=== PATIENT | female | born 1940 | race Caucasian/White ===

== ENCOUNTER 2022-10-02 10:54 | Emergency (ER) | payer MEDICARE, OTHER, SELFPAY ==
[2022-10-02 11:04] VITALS: BP 152/81; PULSE 67; RESP 18; TEMP 36.4; O2SAT 99; BMI 31.6
--- NOTE | 2022-10-02 11:48 | CRLHL7_ITS ---
For Patients: As a result of the Century Cures Act, medical imaging exams and procedure reports are released immediately into your electronic medical record. You may view this report before your referring provider. If you have questions, please contact your health care provider. DATE: 10/02/2022. CLINICAL HISTORY: Headache and neck pain. TECHNIQUE: Standard helical CT image acquisition through the head and neck was performed after intravenous contrast bolus enhancement. Multiplanar reconstructed images were performed and interpreted. COMPARISON: None available. FINDINGS: The origins of the great vessels from the aortic arch are patent. The origins of the right and left vertebral arteries are patent. The common carotid arteries are patent. No significant luminal stenoses of the proximal internal carotid arteries by NASCET criteria. The more distal cervical segments of the internal carotid arteries are patent. The cervical segments of the vertebral arteries are patent. No intracranial proximal large vessel occlusion or flow-limiting luminal stenosis. No evidence of cerebral aneurysm or findings to suggest an arteriovenous shunting lesion. IMPRESSION: 1. No intracranial proximal large vessel occlusion or flow-limiting luminal stenosis. 2. Patent cervical arterial vasculature without hemodynamically significant luminal stenosis. Please note that all CT scans at this facility use dose modulation, iterative reconstruction, and/or weight-based dosing when appropriate to reduce radiation dose to as low as reasonably achievable. Dictated by Tk Rivera MD @ 10/02/2022 1:52:06 PM (Electronically Signed)
--- NOTE | 2022-10-02 11:49 | CRLHL7_ITS ---
For Patients: As a result of the Century Cures Act, medical imaging exams and procedure reports are released immediately into your electronic medical record. You may view this report before your referring provider. If you have questions, please contact your health care provider. DATE: 10/02/2022. CLINICAL HISTORY: Headache. TECHNIQUE: Standard helical CT image acquisition of the brain was performed. COMPARISON: None available. FINDINGS: There is no intracranial hemorrhage. No extra-axial collection, mass effect, or midline shift. [place]-white matter differentiation is preserved. Age-appropriate mild generalized parenchymal volume loss. Sub centimeter hypodensity in the inferior left basal ganglia is favored to reflect a prominent perivascular CSF space. The calvarium is unremarkable. Ocular lens replacements. The paranasal sinuses are unremarkable. The mastoid air cells are unremarkable. The soft tissues are unremarkable. IMPRESSION: No CT evidence of acute intracranial abnormality. Please note that all CT scans at this facility use dose modulation, iterative reconstruction, and/or weight-based dosing when appropriate to reduce radiation dose to as low as reasonably achievable. Dictated by Tk Rivera MD @ 10/02/2022 1:48:42 PM (Electronically Signed)
--- NOTE | 2022-10-02 11:54 | ED.GENADULT ---
HPI - General Adult General Date Seen: 10/02/22 Chief complaint: Headache/Migraine Stated complaint: Pain in neck, lt shoulder, head Time Seen by Provider: 10/02/22 11:02 Source: patient History of Present Illness HPI narrative: Patient is an 82-year-old woman who presents for evaluation of headache. She tells me that on night, she had a brief episode of sharp chest pain, lasting a second or two, she says she had 2 sharp chest pains that quickly resolved and have not recurred. She went to bed on night and overnight got up several times to go to the bathroom. She noted onset of headache overnight on which has been worsening since then. She has pain in the left side of her neck, which is largely resolved with rest but hurts with movement. She has a holocranial headache, mild photophobia, a little bit of nausea but no vomiting. She has been taking ibuprofen as well as tizanidine, but neither have been helpful. She has not run any fevers although she has had some chills. She has not had any focal neurologic complaints. She does say that she has been having some flashing lights when she closes her eyes at night. Vision has otherwise been normal. She has a remote history of migraine, but has not had 1 for 20 years. Typically otherwise does not get headaches. She has not had any trauma, even minor trauma. Related Data Home Medications Medication Instructions Recorded Confirmed acetaminophen 500 mg tablet mg PO PRN 06/17/22 aspirin 81 mg capsule 81 mg PO QDAY 06/17/22 glyburide 5 mg tablet mg PO DAILY 06/17/22 hydrochlorothiazide 25 mg tablet mg PO DAILY 06/17/22 meloxicam 7.5 mg tablet mg PO DAILY 06/17/22 rosuvastatin 10 mg tablet mg PO 06/17/22 Allergies Allergy/AdvReac Type Severity Reaction Status Date / Time metformin Allergy Verified 06/20/22 09:08 morphine Allergy Verified 06/20/22 09:08 niacin Allergy Verified 06/20/22 09:08 Sulfa drugs Allergy Uncoded 06/20/22 09:08 Review of Systems Status of ROS: Reports: 10 or more systems reviewed and unremarkable except as noted in History and below [facility] Medical History Arthritis (01/19/10) Diabetes (01/19/10) Hyperlipidemia (01/19/10) Hypertension (01/19/10) Urinary incontinence (01/19/10) Surgical History H/O foot surgery (01/19/10) History of facial surgery (01/19/10) Hx of appendectomy (01/19/10) Hx of cholecystectomy (01/19/10) Previous back surgery (01/19/10) Social History Smoking Status: Never smoker How often do you have a drink containing alcohol: never How often do you have six or more drinks on one occasion: Never AUDIT-C Alcohol total score: 0 Non-prescribed substance use: denies use service: No Exam Narrative: Exam Narrative: Vital signs as noted above. In general, an alert, well-appearing patient. She looks comfortable, breathing easily. Head: Normocephalic, atraumatic. Eyes: Pupils are equal reactive. Extraocular movements are full. Conjunctivae are normal. ENT: Mucous membranes are moist. Throat is normal. Mild tenderness diffusely over the left side of her face, including over the temporal artery but not focally so. Neck: Supple without lymphadenopathy. No bruits. Tenderness throughout the left neck, posterior greater than anterior. No meningeal signs. Rotation is limited to the left secondary to pain. Extension and flexion are preserved. Heart: Regular rate and rhythm. No murmur or rub. Lungs: Clear bilaterally. No increased work of breathing, crackles or wheezes. Abdomen: Soft and nontender. No organomegaly. Extremities: Well perfused. No edema. No calf tenderness. Pulses intact. Neurologic: Patient is alert and oriented to person and place. Speech is fluent. Face is symmetric. Moves all extremities equally. Cerebellar function is intact by finger-nose testing. Affect: Normal. Skin: Warm and dry. Well perfused. Const: Vital Signs, click to edit/add: Vital Signs - 24 hr 10/02/22 11:04 Temperature 97.6 F Pulse Rate [Right Pulse Oximeter] 67 Respiratory Rate 18 Blood Pressure [Ri ght Upper Arm] 152/81 H Pulse Oximetry 99 Oxygen Delivery Me thod Room Air Documenting provider has reviewed patient's vital signs: yes Course Course Hospital Course: Overall, patient's presentation is most suggestive of torticollis with some associated myofascial type headache, but given her age and associated risk factors, other considerations included intracranial hemorrhage, vascular dissection, infection, cavernous sinus thrombosis, temporal arteritis, etc. We established an IV, she had Zofran initially, went on to have CT of the head without contrast as well as CT angiogram of the head and neck. CT of the head by my review did not show any acute findings such as subdural or subarachnoid hemorrhage. Final radiology read was likewise negative. CT angiogram of the head was read by Radiology as negative for acute findings. Labs are notable for a normal white blood cell count of 7.7, hemoglobin of 13. Platelets of 252715. Diff is relatively unremarkable. Her CRP was mildly elevated at 2, sed rate mildly elevated at 31. Metabolic panel normal, LFTs unremarkable. COVID was negative. An EKG by my review showed sinus bradycardia. No acute ST segment changes. In talking with her, it sounds like she has not tolerated stronger pain medications well in the past. Morphine gave her hives, and some kind of other opioid caused her significant confusion. She does tell me that she took 1 of her 's tramadol in the past and feels like that went okay. She does take ibuprofen fairly regularly and says that she does not have any problem with ibuprofen generally, so I did give her a dose of Toradol here after confirming that her head CT was negative. Her workup here is reassuring the negative. She does have muscular tenderness and I suspect that her headache is musculoskeletal in etiology. She may benefit from some outpatient physical therapy, and I have encouraged her to follow up in clinic this week to see how she is doing, if not improving over the next few days that something that could be set up for her. She does have mildly elevated inflammatory markers, not to the degree that time overly suspicious of temporal arteritis, but these may need to be rechecked in if more elevated that something that might need to be followed up on. Return at any time for acute worsening or if new symptoms develop such as fever, focal neurologic signs, vomiting, or other worsening. Vital Signs Vital signs: Initial Vital Signs Temperature 97.6 F 10/02/22 11:04 Temperature Source Temporal Artery Scan 10/02/22 11:04 Pulse Rate 67 10/02/22 11:04 Respiratory Rate 18 10/02/22 11:04 Blood Pressure 152/81 H 10/02/22 11:04 Blood Pressure Mean 104 10/02/22 11:04 Blood Pressure Position Sitting 10/02/22 11:04 Pulse Oximetry 99 10/02/22 11:04 Oxygen Delivery Method 10/02/22 11:04 Vital Signs Temperature 97.6 F 10/02/22 11:04 Pulse Rate 67 10/02/22 11:04 Respiratory Rate 18 10/02/22 11:04 Blood Pressure 152/81 H 10/02/22 11:04 Pulse Oximetry 99 10/02/22 11:04 Oxygen Delivery Method 10/02/22 11:04 Temperature 97.6 F 10/02/22 11:04 Pulse Rate 67 10/02/22 11:04 Respiratory Rate 18 10/02/22 11:04 Blood Pressure 152/81 H 10/02/22 11:04 Pulse Oximetry 99 10/02/22 11:04 Oxygen Delivery Method 10/02/22 11:04 Medical Decision Making Lab Data Labs: Lab Results 10/02/22 10/02/22 10/02/22 Range/Units 11:50 12:05 12:05 WBC 7.70 (4.50-11.00) K/uL RBC 4.33 (4.00-5.20) m/uL Hgb 13.1 (12.0-16.0) gm/dL Hct 38.2 (33.0-51.0) % MCV 88 (80-100) fL MCH 30 (26-34) pg MCHC 34 (32-36) gm/dL RDW Coeff of Will 12.1 (11.5-15.5) % Plt Count 138 L (140-440) K/uL Neut % (Auto) 79.8 H (42.0-72.0) % Lymph % (Auto) 9.5 L (20-44) % [place] % (Auto) 9.1 (0.0-11.0) % Eos % (Auto) 1.0 (0.0-7.0) % Baso % (Auto) 0.3 (0.0-3.0) % Neut # (Auto) 6.10 (1.7-7.0) K/uL Lymph # (Auto) 0.70 L (0.90-2.90) K/uL [place] # (Auto) 0.70 (0.00-0.90) K/UL Eos # (Auto) 0.08 (0.00-0.50) K/uL Baso # (Auto) 0.02 (0.00-0.30) K/uL ESR (2-20) mm/hr INR 1.02 (0.91-1.10) APTT 38 H (23-33) Seconds Sodium (135-149) mmol/L Potassium (3.6-5.1) mmol/L Chloride (96-114) mmol/L Carbon Dioxide (20-32) mmol/L BUN (7-30) mg/dL Creatinine (0.5-1.5) mg/dL Estimated Creat Clear Estimated GFR ml/min Glucose (60-115) mg/dL Calcium (8.4-10.6) mg/dL Total Bilirubin (0.1-1.5) mg/dL Direct Bilirubin (0.0-0.5) mg/dL AST (12-35) U/L ALT (4-35) U/L Alkaline Phosphatase (40-150) U/L C-Reactive Protein (0.5-1.0) mg/dL Total Protein (6.0-8.3) g/dL Albumin (3.3-5.0) g/dL SARS-CoV-2 (PCR) (Negative) POC Troponin I 0.00 L (0.01-0.04) ng/ml 10/02/22 10/02/22 10/02/22 Range/Units 12:05 12:05 12:05 WBC (4.50-11.00) K/uL RBC (4.00-5.20) m/uL Hgb (12.0-16.0) gm/dL Hct (33.0-51.0) % MCV (80-100) fL MCH (26-34) pg MCHC (32-36) gm/dL RDW Coeff of Will (11.5-15.5) % Plt Count (140-440) K/uL Neut % (Auto) (42.0-72.0) % Lymph % (Auto) (20-44) % [place] % (Auto) (0.0-11.0) % Eos % (Auto) (0.0-7.0) % Baso % (Auto) (0.0-3.0) % Neut # (Auto) (1.7-7.0) K/uL Lymph # (Auto) (0.90-2.90) K/uL [place] # (Auto) (0.00-0.90) K/UL Eos # (Auto) (0.00-0.50) K/uL Baso # (Auto) (0.00-0.30) K/uL ESR 31 H (2-20) mm/hr INR (0.91-1.10) APTT (23-33) Seconds Sodium 139 (135-149) mmol/L Potassium 3.6 (3.6-5.1) mmol/L Chloride 101 (96-114) mmol/L Carbon Dioxide 29 (20-32) mmol/L BUN 22 (7-30) mg/dL Creatinine 0.8 (0.5-1.5) mg/dL Estimated Creat Clear 38.36 Estimated GFR 73 ml/min Glucose 112 (60-115) mg/dL Calcium 9.0 (8.4-10.6) mg/dL Total Bilirubin 0.8 (0.1-1.5) mg/dL Direct Bilirubin 0.4 (0.0-0.5) mg/dL AST 24 (12-35) U/L ALT 15 (4-35) U/L Alkaline Phosphatase 76 (40-150) U/L C-Reactive Protein 2.0 H (0.5-1.0) mg/dL Total Protein 6.9 (6.0-8.3) g/dL Albumin 4.2 (3.3-5.0) g/dL SARS-CoV-2 (PCR) Negative SARS-CoV-2 (Negative) POC Troponin I (0.01-0.04) ng/ml Discharge Plan Discharge Clinical Impression: Acute torticollis, Headache Patient Disposition: Home, Self-Care Condition: Improved Instructions: Spasmodic Torticollis (ED), Acute Headache (ED) Additional Instructions: Continue with Tylenol 1000 mg 3 times daily. Tramadol as needed for uncontrolled pain. Be aware that this may cause dizziness, nausea, balance problems etc. Follow-up with your primary clinic this week for recheck. Your sed rate was mildly elevated at 31, CRP was 2.0. Depending on how you are feeling, these may need to be rechecked. If you have any new or worsening symptoms, such as neurologic changes, vomiting, fever, severe pain, return to the emergency department. Prescriptions: No Action rosuvastatin 10 mg tablet PO hydrochlorothiazide 25 mg tablet PO DAILY acetaminophen 500 mg tablet PO PRN Rx Instructions: NO MORE THAN 4000 MG/DAY glyburide 5 mg tablet PO DAILY aspirin 81 mg capsule 81 mg PO QDAY meloxicam 7.5 mg tablet PO DAILY Follow Up/Referrals: Zena Yuan MD [Primary Care Provider] - Stand Alone Forms: Belly [employer]ot Info Instructions
[2022-10-02] MEDS: ONDANSETRON 2 MG/ML inj 4 MG IVP (12:19)
[2022-10-02 12:21] LABS: Basophils Absolute Auto 0.02 K/uL (0.00-0.30); Basophils Percent Auto 0.3 % (0.0-3.0); Eosinophils Absolute Auto 0.08 K/uL (0.00-0.50); Hematocrit 38.2 % (33.0-51.0); Hemoglobin* 13.1 gm/dL (12.0-16.0); Immature Granulocytes Abs Auto 0.02 K/uL (0.00-0.30); Immature Granulocytes Pct Auto 0.3 %; Lymphocytes Percent Auto 9.5 % (20-44); Mean Corpuscular HGB Conc 34 gm/dL (32-36); Mean Corpuscular Hemoglobin 30 pg (26-34); Mean Corpuscular Volume 88 fL (80-100); Monocytes Percent Auto 9.1 % (0.0-11.0); Neutrophils Percent Auto 79.8 % (42.0-72.0); Platelet Count* 138 K/uL (140-440); RDW Coefficient of Variation % 12.1 % (11.5-15.5); Red Blood Count 4.33 m/uL (4.00-5.20)
[2022-10-02 12:22] LABS: Slide Review Reflex No
[2022-10-02 12:37] LABS: Albumin* 4.2 g/dL (3.3-5.0); Chloride* 101 mmol/L (96-114); Sodium* 139 mmol/L (135-149)
[2022-10-02 12:38] LABS: Potassium* 3.6 mmol/L (3.6-5.1)
[2022-10-02 12:39] LABS: INR 1.02 (0.91-1.10); Prothrombin Time 14.1 Seconds
[2022-10-02 12:40] LABS: Carbon Dioxide* 29 mmol/L (20-32); Creatinine* 0.8 mg/dL (0.5-1.5); Est. Creatinine Clearance* 38.36; Estimated Glomerular Filt Rate 73 ml/min
[2022-10-02 12:41] LABS: Alanine Aminotransferase* 15 U/L (4-35); Alkaline Phosphatase* 76 U/L (40-150); Aspartate Amino Transferase* 24 U/L (12-35); Bilirubin Direct* 0.4 mg/dL (0.0-0.5); Bilirubin Total* 0.8 mg/dL (0.1-1.5); Blood Urea Nitrogen* 22 mg/dL (7-30); Glucose* 112 mg/dL (60-115); Partial Thromboplastin Time* 38 Seconds (23-33); Total Protein* 6.9 g/dL (6.0-8.3)
[2022-10-02 12:54] LABS: SARS PCR* Negative SARS-CoV-2 (Negative)
[2022-10-02 13:47] LABS: Erythrocyte SedimentationRate* 31 mm/hr (2-20)
[2022-10-02] MEDS: KETOROLAC 15 MG/ML inj IVP (14:22)
== END 2022-10-02 14:22 | disposition home or self-care (01) ==
PROVIDERS: Emergency Provider Emergency Medicine; PCP Family Medicine
DX: M43.6 Torticollis (principal); R51.9 Headache, unspecified
CPT/HCPCS: 36415; 70450; 70496; 70498; 80048; 80076; 84484; 85025; 85610; 85651; 85730; 86140; 87635; 93005; 96374; 96375; 99284; 99285; J1885; J2405; Q9967

== ENCOUNTER 2023-06-15 07:27 | Day surgery (SDC) | payer MEDICARE, OTHER, SELFPAY ==
[2023-06-09 00:05] VITALS: BP 122/41; PULSE 55; RESP 16; TEMP 36.7; O2SAT 98
[2023-06-15] VITALS (26 sets, daily range): BP systolic 110–150; BP diastolic 47–72; PULSE 48–68; RESP 12–20; TEMP 36.1–36.4; O2SAT 87–100; BMI 31.9
[2023-06-15] MEDS: LACTATED RINGERS 1000 ML 1,000 ML 100 ML IV ×2 (07:35→11:54)
[2023-06-15] MEDS: CELECOXIB 200 MG CAPSULE PO (08:40)
[2023-06-15] MEDS: ACETAMINOPHEN 500 MG TABLET 1000 MG PO ×3 (08:40→21:23)
[2023-06-15] MEDS: OXYCODONE (CR) 10 MG TAB.ER.12H PO (08:40)
[2023-06-15] MEDS: SODIUM CHLORIDE 0.9 % (FLUSH) 10 ML SYRINGE IVF (08:40)
--- NOTE | 2023-06-15 09:10 | SUR.PREOP ---
TIME?OUT:?0910 PT/RN/MDA?VERIFICATION?OF?SURGICAL?SITE,?PROCEDURE,?AND?CONSENT OBTAINED?PRIOR?TO?INVASIVE?PROCEDURE.
[2023-06-15] MEDS: fentaNYL 100 MCG/2 ML inj IVP (09:12)
[2023-06-15] MEDS: MIDAZOLAM HCL 1 MG/ML inj IVP (09:12)
[2023-06-15] MEDS: CEFAZOLIN 2 GM INJ IVP (10:08)
--- NOTE | 2023-06-15 11:32 | CRLHL7_ITS ---
For Patients: As a result of the Cures Act, medical imaging exams and procedure reports are released immediately into your electronic medical record. You may view this report before your referring provider. If you have questions, please contact your health care provider. Indication: POSTOP TKA Technique: Two views right knee Findings/Impression: Hardware from a right total knee arthroplasty is in satisfactory position. Bone alignment is normal. No sign of acute fracture. Postop changes are within normal limits. Dictated by Dustin Perez MD @ 06/15/2023 12:28:36 PM (Electronically Signed)
--- NOTE | 2023-06-15 11:35 | PM.ORPRC ---
Procedure Note Date of procedure: 06/15/23 Procedure: PREOPERATIVE DIAGNOSIS: Right knee osteoarthritis POSTOPERATIVE DIAGNOSIS: Right knee osteoarthritis NAME OF OPERATION: Right total knee arthroplasty SURGEON: Dano Torres MD IT SENIOR SOFTWARE ENGINEER JAVA: WILLIAM Soto ANESTHESIA: Spinal ESTIMATED BLOOD LOSS: 0 mL COMPLICATIONS: None SPECIMENS: None DRAINS: None PREOPERATIVE ANTIBIOTICS: Ancef 2 grams, antibiotic impregnated cement IMPLANTS: 1. J&J Attune # 5 narrow posterior stabilized femur 2. #4 fixed-bearing tibia 3. # 5 posterior stabilized, 5 mm fixed-bearing polyethylene 4. 35 patella INDICATIONS: The patient is a 83-year-old with a longstanding history of severe, unrelenting right knee pain secondary to end-stage (grade IV) right knee osteoarthritis. Despite appropriate nonoperative management, including activity modification, anti-inflammatories, [id number] pain medication, bracing, physical therapy, and injections they continue to have pain and disability. Operative intervention was offered. The risks, benefits and expected outcomes were discussed in detail. These included but were not limited to: Infection, bleeding, injury to blood vessel or nerve, venous thromboembolism. All questions were answered to their satisfaction. Use of an apartment assistant manager was necessary throughout the case for patient positioning and safety, soft tissue retraction, and closure. PROCEDURE: Spinal anesthesia was administered. The patient was placed supine on the operating table. The apartment assistant manager made sure the patient was positioned appropriately. The lower extremity was prepped and draped in the usual sterile fashion. The limb was exsanguinated with the Fl[place] bandage. The pneumatic tourniquet was inflated to 300 mmHg. A standard anterior incision was made with the knee in flexion. Subcutaneous dissection was sharply taken through fascial layer #1. Full-thickness medial and lateral flaps were elevated. The apartment assistant manager retracted the soft tissues and protected them throughout the case. A standard medial parapatellar approach was made. The patella was everted. The infrapatellar fat pad was preserved. The menisci and cruciate ligaments were sharply d?brided. Marginal osteophytes were d?brided with the rongeur. The drill was used to penetrate the femoral canal. The canal was aspirated and irrigated with pulse lavage. The intramedullary femoral guide was placed for a 5-degree valgus cut, removing 10 mm off the distal femur. The saw was used to make the cut. Whitesides line and the trans epicondylar axis were marked. The femoral sizing guide was pinned onto the distal femur. Three degrees of external rotation nicely parallels the transepicondylar axis. Pins were placed for posterior referencing. The four-in-one cutting guide was pinned onto the distal femur. The anterior, posterior, and chamfer cuts were made. The apartment assistant manager protected the collateral ligaments. The box cutting guide was pinned. The box cuts were made. The boxed trial was placed and was an excellent fit. Drill holes for the lugs were made. Attention was then turned to the proximal tibia. The extramedullary tibial guide was placed for a neutral varus/valgus cut with 5 degrees of posterior slope, removing 2 mm based off the medial tibial surface. The apartment assistant manager protected the collateral ligaments and the neurovascular bundle. The saw was used to make the cut. Trial components were placed. The knee was nicely balanced in both flexion and extension. The trial components were removed. The tray was placed in appropriate rotation, parallel to our tibial cutting pins. It was pinned by the apartment assistant manager and the drill and the punch were used. The tray was removed. The punch was used again. We placed a bone plug in the femoral canal. Attention was then turned to the patella. [place] patellar thickness was 19.5 mm. The lobster claw resection guide was used with the 7.5 mm patria. The saw blade was use as an extra patria. The saw was used to make the cut. Drill holes were made by the apartment assistant manager. The trial was placed and was an excellent fit. Cancellous surfaces were irrigated with pulse lavage and thoroughly dried by the apartment assistant manager. We cemented the tibial component, then the femoral component. We impacted the 5 mm polyethylene onto the tibial tray. The knee was brought into full extension. We then cemented the patellar component. Excessive cement was removed. The cement was allowed to harden. The knee was taken through a range of motion and was found to be nicely balanced in both flexion and extension. The patella tracks centrally. The apartment assistant manager did a three minute dilute Betadine solution soak. The apartment assistant manager irrigated the wound with 3 liters of normal saline via pulse lavage. The apartment assistant manager reapproximated the extensor mechanism with #1 Vicryl in an interrupted [id number] fashion. The apartment assistant manager then ran the extensor mechanism with a #1 PDO Stratafix. The apartment assistant manager closed the subcutaneous tissues with a 3-0 Stratafix and the skin with a running 3-0 Stratafix in a subcuticular fashion. Glue was used to seal the skin. The apartment assistant manager placed a dry dressing, MALA stocking, and Polar Care. Sponge and needle counts were correct x2. The patient tolerated the procedure well. There were no apparent complications. They were carefully transferred to the hospital bed and taken to the postanesthesia care unit in satisfactory condition. PLAN: The patient will be mobilized with physical therapy. Aspirin will be used for DVT prophylaxis. They will be discharged to home once medically appropriate.
--- NOTE | 2023-06-15 11:54 | W.ANESCHARGE ---
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
--- NOTE | 2023-06-15 12:02 | P.ANES_ITS ---
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
[2023-06-15] MEDS: LACTATED RINGERS 1000 ML 1,000 ML 75 ML IV (14:25)
[2023-06-15] MEDS: OXYCODONE 5 MG TABLET PO ×3 (14:32→21:23)
--- NOTE | 2023-06-15 14:47 | PC.NURSE ---
End of shift Note: Patient here had a (R) TKA. vitals have been stable, did try clear liquids and tolerated them. PT did get patient up to the chair and then she complained of pain 02/25 which she received oxycodone see NOV. Will continue to monitor until report given to next shift.
--- NOTE | 2023-06-15 15:37 | PM.IMCN1 ---
Date of Consult Consult date: 06/15/23 Requesting Physician: Orthopedics (Harvey Torres) Primary Care Provider: Zena Yuan MD Consult Narrative Reason for consult: Medical management Narrative: Dipika Franco is a 83 year old female past medical history significant for diabetes mellitus type 2, hypertension, hyperlipidemia is POD#0 s/p right total knee arthroplasty with Dr. Torres. Patient reports her pain is managed if she is still. Pain is otherwise responsive to oral medications. Denies headache or dizziness. Denies chest pain or shortness of breath. Tolerating orals without nausea vomiting. Patient plans to return home with the assistance of her niece. There have been no perioperative complications or nursing concerns reported. Estimated total blood loss documented as 0ml. Updated and reviewed the active medical problems, past medical history, past surgical history, social history, allergies and medications in our electronic EMR. Review of Systems Narrative: REVIEW OF SYSTEMS: Complete review of systems performed and negative unless otherwise stated in HPI or below. [facility] Medical History (Updated 06/15/23 @ 15:52 by Fariba Raza PA-C) Vitamin D deficiency (01/19/10) ?E55.9 - Vitamin D deficiency, unspecified (ICD-10) Parotitis (06/02/11) ?K11.20 - Sialoadenitis, unspecified (ICD-10) Adenoma of left adrenal gland (01/19/10) ?D35.02 - Benign neoplasm of left adrenal gland (ICD-10) Diverticulosis (01/19/10) ?K57.90 - Diverticulosis of intestine, part unspecified, without perforation or abscess without bleeding (ICD-10) Cystocele (01/19/10) Hypertension (01/19/10) ?I10 - Essential (primary) hypertension (ICD-10) Hyperlipidemia (01/19/10) ?E78.5 - Hyperlipidemia, unspecified (ICD-10) Diabetes (01/19/10) ?E11.9 - Type 2 diabetes mellitus without complications (ICD-10) Urinary incontinence (01/19/10) ?R32 - Unspecified urinary incontinence (ICD-10) Arthritis (01/19/10) ?M19.90 - Unspecified osteoarthritis, unspecified site (ICD-10) Surgical History H/O oophorectomy (01/19/10) History of hysterectomy (01/19/10) ?Z90.710 - Acquired absence of both cervix and uterus (ICD-10) H/O foot surgery (01/19/10) ?Z98.890 - Other specified postprocedural states (ICD-10) Previous back surgery (01/19/10) ?Z98.890 - Other specified postprocedural states (ICD-10) History of facial surgery (01/19/10) ?Z98.890 - Other specified postprocedural states (ICD-10) Hx of cholecystectomy (01/19/10) ?Z90.49 - Acquired absence of other specified parts of digestive tract (ICD-10) Hx of appendectomy (01/19/10) ?Z90.49 - Acquired absence of other specified parts of digestive tract (ICD-10) Social History What is your current living situation?: I presently have a place to live In the past 12 months, utilities in danger of being shut off: no In past 12 months, lack of transportation kept you from medical appts, meetings, work, or getting things needed for daily living: no In the past 12 mos, have been you worried that your food would run out before you had money to buy more?: never true In the past 12 mos, the food you bought just didn't last and you didn't have money to buy more?: never true Smoking Status: Never smoker How often do you have a drink containing alcohol: never How often do you have six or more drinks on one occasion: Never AUDIT-C Alcohol total score: 0 Non-prescribed substance use: denies use Caffeine: No How often does anyone, including family, friends and others, physically hurt you: never How often does anyone, including family, friends and others, insult or talk down to you: never How often does anyone, including family, friends and others, threaten you with harm: never How often does anyone, including family, friends and others, scream or curse at you: never service: No Meds Home Medications and Allergies Home Medications Medication Instructions Recorded Confirmed Type hydrochlorothiazide 25 mg tablet 25 mg PO DAILY 06/17/22 06/15/23 History rosuvastatin 10 mg tablet 10 mg PO HS 06/17/22 06/15/23 History glyburide 2.5 mg tablet 2.5 mg PO BID 06/15/23 06/15/23 History meloxicam 15 mg tablet 15 mg PO DAILY 06/15/23 06/15/23 History Allergies Allergy/AdvReac Type Severity Reaction Status Date / Time metformin Allergy Verified 05/31/23 09:53 morphine Allergy Verified 05/31/23 09:53 niacin Allergy Verified 05/31/23 09:53 Sulfa (Sulfonamide Allergy Verified 05/31/23 09:53 Antibiotics) Exam Narrative: Exam Narrative: PHYSICAL EXAM General: Sitting up in chair, very pleasant, conversant, NAD HEENT: Normocephalic, atraumatic, sclera white, EOMI, oral mucosa moist Cardiovascular: RRR, S1S2. No pitting edema Pulmonary: CTA bilaterally without rhonchi, rales, expiratory wheezes. No dyspnea Abdominal: Soft, nondistended, NTTP Neurological: Alert, answering questions appropriately, cranial nerves intact, no focal findings Extremities: No gross joint deformity or swelling. Postoperative dressings in place, dry. Neurovascularly intact Skin: Warm, dry. Const: Vital Signs, click to edit/add: Vital Signs - 24 hr 06/15/23 08:44 06/15/23 09:05 06/15/23 09:10 Temperature Pulse Rate 64 61 63 Pulse Rate [Right Pulse Oximeter] Respiratory Rate 16 16 14 Blood Pressure 139/59 L 148/62 H 136/63 Blood Pressure [Le ft Arm] Pulse Oximetry 95 100 100 Oxygen Delivery Me thod Room Air Nasal Cannula Nasal Cannula Oxygen Flow Rate 3 3 06/15/23 09:15 06/15/23 09:20 06/15/23 09:25 Temperature Pulse Rate 64 53 L 48 L Pulse Rate [Right Pulse Oximeter] Respiratory Rate 14 14 14 Blood Pressure 138/58 L 133/52 L 113/49 L Blood Pressure [Le ft Arm] Pulse Oximetry 100 98 100 Oxygen Delivery Me thod Nasal Cannula Nasal Cannula Nasal Cannula Oxygen Flow Rate 3 3 3 06/15/23 09:30 06/15/23 11:54 06/15/23 12:00 Temperature 97.4 F L Pulse Rate 49 L 59 L 58 L Pulse Rate [Right Pulse Oximeter] Respiratory Rate 14 16 16 Blood Pressure 110/50 L 116/48 L 118/51 L Blood Pressure [Le ft Arm] Pulse Oximetry 95 97 96 Oxygen Delivery Me thod Nasal Cannula OxyMask Room Air Oxygen Flow Rate 3 6 06/15/23 12:05 06/15/23 12:10 06/15/23 12:15 Temperature Pulse Rate 57 L 60 54 L Pulse Rate [Right Pulse Oximeter] Respiratory Rate 14 16 14 Blood Pressure 115/56 L 119/53 L 129/59 L Blood Pressure [Le ft Arm] Pulse Oximetry 97 94 93 Oxygen Delivery Me thod Oxygen Flow Rate 06/15/23 12:20 06/15/23 12:24 06/15/23 12:55 Temperature 97.5 F L 96.9 F L Pulse Rate 56 L 55 L 53 L Pulse Rate [Right Pulse Oximeter] Respiratory Rate 13 12 18 Blood Pressure 127/49 L 124/47 L Blood Pressure [Le ft Arm] 123/55 L Pulse Oximetry 95 95 Oxygen Delivery Me thod Room Air Oxygen Flow Rate 06/15/23 13:00 06/15/23 13:15 06/15/23 13:30 Temperature 96.9 F L 96.9 F L 96.9 F L Pulse Rate Pulse Rate [Right Pulse Oximeter] 50 L 56 L 54 L Respiratory Rate 18 18 20 Blood Pressure Blood Pressure [Le ft Arm] 130/60 139/72 130/57 L Pulse Oximetry 95 89 96 Oxygen Delivery Me thod Room Air Room Air Nasal Cannula Oxygen Flow Rate 1 06/15/23 13:45 06/15/23 14:00 Temperature 96.9 F L 96.9 F L Pulse Rate Pulse Rate [Right Pulse Oximeter] 56 L 59 L Respiratory Rate 20 20 Blood Pressure Blood Pressure [Le ft Arm] 130/59 L 138/59 L Pulse Oximetry 97 95 Oxygen Delivery Me thod Nasal Cannula Room Air Oxygen Flow Rate 1 Assessment and Plan Assessment and plan (1) Osteoarthritis of right knee: Problem comment: -POD#0 s/p right TKA. -Perioperative management including pain control, anticoagulation, therapy per Orthopedic Surgery. Status: Acute (2) Diabetes: Problem comment: -encourage diabetic diet -glucose POC with meals -hold glyburide, resume upon discharge Status: Acute (3) Hyperlipidemia: Problem comment: -resume statin upon discharge Status: Acute (4) Hypertension: Problem comment: -stable postoperatively -hold hydrochlorothiazide tonight, resume upon discharge Status: Acute [facility] medicine team will sign off. Please contact our service with any questions or concerns.
[2023-06-15] MEDS: CEFAZOLIN 2 GM in 0.9 % SODIUM CHLORIDE Mini-bag 100 ML IVPB (15:52)
[2023-06-15] MEDS: 0.9 % SODIUM CHLORIDE 500 ML IV (19:03)
--- NOTE | 2023-06-15 19:17 | PC.NURSE ---
End of shift-- Pleasant and cooperative, alert and oriented patient. VSS and pt is afebrile. SPO2 maintained >90% on RA while awake, however, pt's O2 level was noted to be as low as 84% on RA while sleeping. SILVESTRE Link was notified. Pain appears well managed with scheduled Tylenol and 10mg Oxycodone q4h. Dressing to right knee is C/D/I and CMS WNL. Right leg is notably edematous. Cryocuff in place. LS CTA. BS+ x4, pt denied nausea and ate 50% of a regular dinner without difficulty. BS 374 at dinner. MD was notified and SS insulin was ordered. Pt voided only 100ml this shift and was given PRN bolus of NS. She was up to the chair and BR with assist of 1, belt and walker and tolerated it fair. Report to CHRISTEN Myles.
[2023-06-15] MEDS: ASPIRIN 81 MG TABLET EC PO (20:39)
[2023-06-15] MEDS: SENNOSIDES 1 TAB TABLET 2 TAB PO (20:39)
[2023-06-16 00:45] VITALS: O2SAT 98
[2023-06-16] MEDS: OXYCODONE 5 MG TABLET PO ×3 (01:13→09:35)
[2023-06-16] MEDS: CEFAZOLIN 2 GM in 0.9 % SODIUM CHLORIDE Mini-bag 100 ML IVPB (01:14)
[2023-06-16] MEDS: ACETAMINOPHEN 500 MG TABLET 1000 MG PO ×2 (04:13→09:30)
[2023-06-16 04:45] VITALS: BP 109/42; PULSE 53; RESP 16; TEMP 36.6; O2SAT 93
[2023-06-16 06:56] LABS: Basophils Absolute Auto 0.01 K/uL (0.00-0.30); Basophils Percent Auto 0.1 % (0.0-3.0); Hemoglobin* 10.5 gm/dL (12.0-16.0); Lymphocytes Percent Auto 11.6 % (20-44); Mean Corpuscular HGB Conc 34 gm/dL (32-36); Mean Corpuscular Hemoglobin 30 pg (26-34); Mean Corpuscular Volume 89 fL (80-100); Monocytes Percent Auto 5.2 % (0.0-11.0); Neutrophils Percent Auto 82.1 % (42.0-72.0); Platelet Count* 132 K/uL (140-440); RDW Coefficient of Variation % 12.5 % (11.5-15.5); White Blood Count* 10.52 K/uL (4.50-11.00)
[2023-06-16 07:00] VITALS: PULSE 60; RESP 16; O2SAT 98
[2023-06-16 07:00] LABS: Slide Review Reflex No
[2023-06-16 07:07] LABS: INR 1.13 (0.91-1.10); Prothrombin Time 15.2 Seconds
[2023-06-16 07:18] LABS: Potassium* 4.5 mmol/L (3.6-5.1); Sodium* 136 mmol/L (135-149)
[2023-06-16 07:21] LABS: Blood Urea Nitrogen* 24 mg/dL (7-30); Est. Creatinine Clearance* 37.68; Estimated Glomerular Filt Rate 56 ml/min
--- NOTE | 2023-06-16 07:52 | PC.NURSE ---
Pt alert and oriented x3. Afebrile. Pt reports 5/10 pain in right knee, pain managed with PRN medications. Right knee dressing is CDI. Pt is up SBA with walker and gait belt. Tolerating a regular diet and voiding. Pt slept intermittently throughout night.
[2023-06-16 08:00] VITALS: BP 130/62; PULSE 60; RESP 16; TEMP 36.1; O2SAT 98
[2023-06-16] MEDS: ASPIRIN 81 MG TABLET EC PO (09:29)
[2023-06-16] MEDS: SENNOSIDES 1 TAB TABLET 2 TAB PO (09:30)
--- NOTE | 2023-06-16 11:32 | PM.ORPN ---
Subjective Subjective Time Seen by Provider: 07:50 Date Seen: 06/16/23 Principal diagnosis: Status post right knee replacement Interval history: Dipika is comfortable this morning in her recliner. She denies nausea and vomiting. She will discharged today to home. Her niece will be helping her. Ortho Exam Narrative Exam Narrative: Alert and oriented x3. Patient is in no acute distress. Converses without labored breathing. Hearing is grossly intact. Ambulates with a walker. Examination of the right lower extremity shows the dressing is intact. Minimal soft tissue edema. Minimal effusion. Cryocuff is applied to the knee. Lux stockings are in place. CMS is intact right lower extremity. Quad strength 4/5. Bilateral calf soft and nontender. Const Vital Signs, click to edit/add: Vital Signs - 24 hr 06/15/23 11:54 06/15/23 12:00 06/15/23 12:05 Temperature 97.4 F L Pulse Rate 59 L 58 L 57 L Pulse Rate [Right Pulse Oximeter] Respiratory Rate 16 16 14 Blood Pressure 116/48 L 118/51 L 115/56 L Blood Pressure [Left Arm] Pulse Oximetry 97 96 97 Oxygen Delivery Method OxyMask Room Air Oxygen Flow Rate 6 06/15/23 12:10 06/15/23 12:15 06/15/23 12:20 Temperature Pulse Rate 60 54 L 56 L Pulse Rate [Right Pulse Oximeter] Respiratory Rate 16 14 13 Blood Pressure 119/53 L 129/59 L 127/49 L Blood Pressure [Left Arm] Pulse Oximetry 94 93 95 Oxygen Delivery Method Oxygen Flow Rate 06/15/23 12:24 06/15/23 12:55 06/15/23 13:00 Temperature 97.5 F L 96.9 F L 96.9 F L Pulse Rate 55 L 53 L Pulse Rate [Right Pulse Oximeter] 50 L Respiratory Rate 12 18 18 Blood Pressure 124/47 L Blood Pressure [Left Arm] 123/55 L 130/60 Pulse Oximetry 95 95 Oxygen Delivery Method Room Air Room Air Oxygen Flow Rate 06/15/23 13:15 06/15/23 13:30 06/15/23 13:45 Temperature 96.9 F L 96.9 F L 96.9 F L Pulse Rate Pulse Rate [Right Pulse Oximeter] 56 L 54 L 56 L Respiratory Rate 18 20 20 Blood Pressure Blood Pressure [Left Arm] 139/72 130/57 L 130/59 L Pulse Oximetry 89 96 97 Oxygen Delivery Method Room Air Nasal Cannula Nasal Cannula Oxygen Flow Rate 1 1 06/15/23 14:00 06/15/23 15:00 06/15/23 15:00 Temperature 96.9 F L Pulse Rate Pulse Rate [Right Pulse Oximeter] 59 L 68 Respiratory Rate 20 18 Blood Pressure Blood Pressure [Left Arm] 138/59 L Pulse Oximetry 95 98 Oxygen Delivery Method Room Air Oxygen Flow Rate 06/15/23 15:00 06/15/23 16:00 06/15/23 17:00 Temperature 97.4 F L 96.9 F L Pulse Rate Pulse Rate [Right Pulse Oximeter] 68 57 L 61 Respiratory Rate 18 18 18 Blood Pressure Blood Pressure [Left Arm] 143/53 H 150/62 H 134/54 L Pulse Oximetry 98 93 93 Oxygen Delivery Method Room Air Room Air Room Air Oxygen Flow Rate 0 0 06/15/23 19:21 06/15/23 21:23 06/15/23 23:00 Temperature 96.9 F L 96.9 F L Pulse Rate Pulse Rate [Right Pulse Oximeter] 59 L Respiratory Rate 16 18 Blood Pressure Blood Pressure [Left Arm] 114/65 Pulse Oximetry 94 98 Oxygen Delivery Method Room Air Room Air Oxygen Flow Rate 0 06/16/23 00:45 06/16/23 04:45 06/16/23 07:00 Temperature 97.9 F Pulse Rate Pulse Rate [Right Pulse Oximeter] 53 L Respiratory Rate 16 Blood Pressure Blood Pressure [Left Arm] 109/42 L Pulse Oximetry 98 93 98 Oxygen Delivery Method Room Air Oxygen Flow Rate 06/16/23 07:00 06/16/23 07:00 06/16/23 08:00 Temperature 96.9 F L Pulse Rate Pulse Rate [Right Pulse Oximeter] 60 60 Respiratory Rate 16 16 16 Blood Pressure Blood Pressure [Left Arm] 130/62 Pulse Oximetry 98 98 Oxygen Delivery Method Room Air Room Air Oxygen Flow Rate 0 Assessment and Plan Assessment and plan (1) Diabetes: Problem details: -encourage diabetic diet -glucose POC with meals -hold glyburide, resume upon discharge Status: Acute (2) Hyperlipidemia: Problem details: -resume statin upon discharge Status: Acute (3) Hypertension: Problem details: -stable postoperatively -hold hydrochlorothiazide tonight, resume upon discharge Status: Acute (4) Status post right knee replacement: Problem details: 06/15/2023 Status: Acute Assessment and Plan: Plan for discharge is today to home if they meet discharge criteria. DVT prophylaxis includes aspirin 81 mg twice daily x1 month, Lux stockings x1 month may remove for 1 hr per day, frequent ambulation Remove dressing in 1 week. Observe wound and phone Orthopedics with any questions or concerns Return to clinic in 1 week for a wound check Return to clinic in 6 weeks with surgeon Minimize narcotic use. Wean off and discontinue soon as possible. She has an allergy to morphine. She states she is tolerating oxycodone well. Oxycodone has been sent to her pharmacy. Activities as tolerated. No strenuous activity. Outpatient physical therapy as scheduled. Ice and elevate the operative extremity. No restriction on ice. We discussed that the block will wear off either today or tomorrow and pain will be significant for a few days until it calms down again.
--- NOTE | 2023-06-22 10:55 | P.NB_ITS ---
Nerve Block Nerve Block Time Seen by Provider: 09:10 Date Seen: 06/15/23 Type of block requested by surgeon for post-operative analgesia: geniculars Side: right Time out performed: Yes Verification of patient name: Yes Verification of date of : Yes Site marking: site marked Name of person performing procedure: Uday Continuous monitoring Was continuous monitoring of O2 sat, B/P, monitor car operator, recorded every 15 minutes?: Yes Procedure Checklist: sterile prep, needles and gloves Medications given in 5ml increments after negative aspiration: Ropivicaine %: 0.5 mL: 9 Needle gauge: 25 Patient tolerated procedure well: Yes Block Charges Block Charge (with Pro Fee): Genicular Nerve Block Use of Ultrasound Machine for Block: No
--- NOTE | 2023-06-22 10:55 | P.NB_ITS ---
Nerve Block Nerve Block Time Seen by Provider: 09:10 Date Seen: 06/15/23 Type of block requested by surgeon for post-operative analgesia: adductor canal Side: right Time out performed: Yes Verification of patient name: Yes Verification of date of : Yes Site marking: site marked Name of person performing procedure: Uday Continuous monitoring Was continuous monitoring of O2 sat, B/P, library monitor, recorded every 15 minutes?: Yes Procedure Checklist: sterile prep, needles and gloves Ultrasound guided. Images saved: Yes Medications given in 5ml increments after negative aspiration: Ropivicaine %: 0.5 mL: 20 Needle gauge: 20 Decadron (mg): 10 Precedex (mcg): 25 Patient tolerated procedure well: Yes Additional comments: Needle noted adjacent to nerve Block Charges Block Charge (with Pro Fee): Femoral Nerve Use of Ultrasound Machine for Block: Yes- US Guidance/pain block
== END 2023-06-16 11:15 | disposition home or self-care (01) ==
LOC: OR 07:28 → MEDSURG 07:31
PROVIDERS: PCP Family Medicine; Visit Provider Orthopaedic Surgery
PROC: (CPT 27447; principal; 2023-06-15 09:00)
DX: M17.11 Unilateral primary osteoarthritis, right knee (principal); G89.18 Other acute postprocedural pain; E11.9 Type 2 diabetes mellitus without complications; I10 Essential (primary) hypertension; E78.5 Hyperlipidemia, unspecified
CPT/HCPCS: 27447; 01402; 36415; 64447; 64454; 73560; 76942; 82565; 82947; 82962; 84132; 84295; 84520; 85025; 85610; 97110; 97116; 97161; 97165; 97530; 97535; 99100; A9270; C1776; J0690; J1100; J1200; J2250; J2405; J2704; J2795; J3010; J7120

== ENCOUNTER 2023-07-12 15:57 | Emergency (ER) | payer MEDICARE, OTHER, SELFPAY ==
[2023-07-12 16:00] VITALS: BP 125/79; PULSE 77; RESP 18; TEMP 36; O2SAT 95
[2023-07-12 16:40] VITALS: O2SAT 98
--- NOTE | 2023-07-12 16:40 | CRLHL7_ITS ---
For Patients: As a result of the Cures Act, medical imaging exams and procedure reports are released immediately into your electronic medical record. You may view this report before your referring provider. If you have questions, please contact your health care provider. INDICATION: Cough. TECHNIQUE: Chest 1 view. COMPARISON: Chest radiographs 03/24/2020. FINDINGS: No focal consolidation, pleural effusion, or pneumothorax. Normal heart size and pulmonary vascularity. Mildly tortuous aorta. Partially visualized cervical spine hardware and thoracolumbar spine Shah rods. IMPRESSION: No acute cardiopulmonary findings. Dictated by Jyoti Harp MD @ 07/12/2023 5:54:58 PM (Electronically Signed)
--- NOTE | 2023-07-12 16:45 | ED.GENADULT ---
HPI - General Adult General Time Seen by Provider: 16:45 Date Seen: 07/12/23 Chief complaint: Chest Pain Stated complaint: Chest pain, weak Time Seen by Provider: 07/12/23 16:30 Source: patient Mode of arrival: ambulatory Limitations: no limitations History of Present Illness HPI narrative: 83 year white female about 1 month status post knee replacement, was doing very well and, reports that she started feeling diarrhea and weak yesterday. She feels she has got some pain palpating the lower sternal area where there is a ?bump?. This is the exact pain she is feeling in her chest. She has had no history of cardiac issues. She has had no blood in her stool or urine. She has had no urinary tract symptoms. She has had no swelling in her legs it has been different. She has not been on it recent antibiotics. No abdominal pain. Related Data Home Medications Medication Instructions Recorded Confirmed hydrochlorothiazide 25 mg tablet 25 mg PO DAILY 06/17/22 06/28/23 rosuvastatin 10 mg tablet 10 mg PO HS 06/17/22 06/28/23 glyburide 2.5 mg tablet 2.5 mg PO BID 06/15/23 06/28/23 Previous Rx's Medication Instructions Recorded acetaminophen 500 mg capsule 500 - 1,000 mg (1 - 2 x 500 mg) PO 06/15/23 Q6H PRN pain #100 caps aspirin 81 mg chewable tablet 81 mg PO BID for DVT prophylaxis 06/15/23 (Aspirin Childrens) 30 days #60 tabs sennosides 8.6 mg tablet (Senna 17.2 mg (2 x 8.6 mg) PO BID PRN 06/15/23 Lax) constipation #100 tabs oxycodone 5 mg tablet 2.5 - 5 mg (0.5 - 1 x 5 mg) PO 07/03/23 Q4-6H PRN Pain #42 tabs Allergies Allergy/AdvReac Type Severity Reaction Status Date / Time metformin Allergy Verified 06/28/23 10:24 morphine Allergy Verified 06/28/23 10:24 niacin Allergy Verified 06/28/23 10:24 Sulfa (Sulfonamide Allergy Verified 06/28/23 10:24 Antibiotics) Review of Systems Status of ROS: Reports: 6 or more systems reviewed and unremarkable except as noted in History and below [facility] Medical History Vitamin D deficiency (01/19/10) ?E55.9 - Vitamin D deficiency, unspecified (ICD-10) Parotitis (06/02/11) ?K11.20 - Sialoadenitis, unspecified (ICD-10) Adenoma of left adrenal gland (01/19/10) ?D35.02 - Benign neoplasm of left adrenal gland (ICD-10) Diverticulosis (01/19/10) ?K57.90 - Diverticulosis of intestine, part unspecified, without perforation or abscess without bleeding (ICD-10) Cystocele (01/19/10) Hypertension (01/19/10) ?I10 - Essential (primary) hypertension (ICD-10) Hyperlipidemia (01/19/10) ?E78.5 - Hyperlipidemia, unspecified (ICD-10) Diabetes (01/19/10) ?E11.9 - Type 2 diabetes mellitus without complications (ICD-10) Urinary incontinence (01/19/10) ?R32 - Unspecified urinary incontinence (ICD-10) Arthritis (01/19/10) ?M19.90 - Unspecified osteoarthritis, unspecified site (ICD-10) Surgical History H/O oophorectomy (01/19/10) History of hysterectomy (01/19/10) ?Z90.710 - Acquired absence of both cervix and uterus (ICD-10) H/O foot surgery (01/19/10) ?Z98.890 - Other specified postprocedural states (ICD-10) Previous back surgery (01/19/10) ?Z98.890 - Other specified postprocedural states (ICD-10) History of facial surgery (01/19/10) ?Z98.890 - Other specified postprocedural states (ICD-10) Hx of cholecystectomy (01/19/10) ?Z90.49 - Acquired absence of other specified parts of digestive tract (ICD-10) Hx of appendectomy (01/19/10) ?Z90.49 - Acquired absence of other specified parts of digestive tract (ICD-10) Social History What is your current living situation?: I presently have a place to live In the past 12 months, utilities in danger of being shut off: no In past 12 months, lack of transportation kept you from medical appts, meetings, work, or getting things needed for daily living: no In the past 12 mos, have been you worried that your food would run out before you had money to buy more?: never true In the past 12 mos, the food you bought just didn't last and you didn't have money to buy more?: never true Smoking Status: Never smoker How often do you have a drink containing alcohol: never How often do you have six or more drinks on one occasion: Never AUDIT-C Alcohol total score: 0 Non-prescribed substance use: denies use Caffeine: No How often does anyone, including family, friends and others, physically hurt you: never How often does anyone, including family, friends and others, insult or talk down to you: never How often does anyone, including family, friends and others, threaten you with harm: never How often does anyone, including family, friends and others, scream or curse at you: never service: No Exam Narrative: Exam Narrative: Objective: Vital signs unremarkable and within normal limits Patient is alert orient x3, appears to be well hydrated, no cyanosis No scleral icterus No facial asymmetry Neck is supple Chest clear Heart rhythm regular with 2/6 systolic murmur Abdomen benign soft nontender obese. Lower extremities show no marked swelling, she has got good neurologic function upper lower extremities. Normal strength and sensation. Patient has good peripheral perfusion skin warm and dry. Const: Vital Signs, click to edit/add: Vital Signs - 24 hr 07/12/23 16:40 07/12/23 18:00 07/12/23 18:30 Pulse Rate [Pulse Oximeter] 65 69 Respiratory Rate 24 15 Blood Pressure [Ri ght Upper Arm] 149/51 H 154/58 H Pulse Oximetry 98 92 97 Oxygen Delivery Me thod Room Air Room Air 07/12/23 19:00 07/12/23 19:26 Pulse Rate [Pulse Oximeter] 64 64 Respiratory Rate 15 16 Blood Pressure [Ri ght Upper Arm] 162/58 H 140/65 H Pulse Oximetry 98 95 Oxygen Delivery Me thod Room Air Room Air Course Vital Signs Vital signs: Initial Vital Signs Temperature 96.8 F L 07/12/23 16:00 Temperature Source Temporal Artery Scan 07/12/23 16:00 Pulse Rate 77 07/12/23 16:00 Pulse Rhythm Regular 07/12/23 16:00 Respiratory Rate 18 07/12/23 16:00 Blood Pressure 125/79 07/12/23 16:00 Blood Pressure Mean 94 07/12/23 16:00 Blood Pressure Position Sitting 07/12/23 16:00 Pulse Oximetry 95 07/12/23 16:00 Oxygen Delivery Method Room Air 07/12/23 16:00 Vital Signs Temperature 96.8 F L 07/12/23 16:00 Pulse Rate 77 07/12/23 16:00 Respiratory Rate 18 07/12/23 16:00 Blood Pressure 125/79 07/12/23 16:00 Pulse Oximetry 95 07/12/23 16:00 Oxygen Delivery Method Room Air 07/12/23 16:00 Temperature 96.8 F L 07/12/23 16:00 Pulse Rate 64 07/12/23 19:26 Respiratory Rate 16 07/12/23 19:26 Blood Pressure 140/65 H 07/12/23 19:26 Pulse Oximetry 95 07/12/23 19:26 Oxygen Delivery Method Room Air 07/12/23 19:26 Medical Decision Making MDM Narrative Medical decision making narrative: 83-year-old white female 1 month status post knee replacement with 1 M day episode of diarrhea, weakness. Some lower sternal chest discomfort that by my palpation his right on her xiphoid and causes the same exact pain that she is experiencing. For completeness however will do a point of care troponin, labs, her EKG looks unchanged from 10/10 where she has some nonspecific T-wave changes laterally and this is by my read. She is in sinus rhythm. Will check a chest x-ray, urinalysis, lab studies, give some IV fluid. Disposition pending findings above. Will also check a C diff toxin Addendum 5:30 p.m.: Patient potassium is low 2.9 should get 25 medical events oral potassium bicarb and 10 milk of in a IV bump. Her troponin is negative. Her EKG looks unchanged from prior. Will check other labs and give some IV hydration. I think this will help some of her weakness symptoms. Addendum 6:42 p.m.: Patient feels markedly better after for getting her potassium and some fluid. She has had no further diarrhea stools. She has a negative troponin, white count is 4004 in 60 hemoglobin is 11.4, her potassium is low at 2.9, this is being replaced. Her glucose is mildly elevated 187 the rest of her ER profile is unremarkable her troponin as mentioned is negative CRP is less than 0.5 proBNP is 696 patient has negative viral studies. If she is feeling better after rising she can collect her C diff sample at home and simply carefully monitor symptoms he had a high potassium diet. Would recommend recheck with regular doctor within next 2-3 days. Addendum 7:42 p.m. patient was unable to tolerate tolerate much of her IV potassium so given another 25 milk opens oral potassium bicarb. She is feeling much better she can proceed home, her EKG looks reassuring and unchanged, her troponin was negative her labs look reassuring. She can collect a C diff at home. And follow-up with her doctor in a couple of days would be recommended. Light activity. Light diet and advanced as tolerated. Lab Data Labs: Lab Results 07/12/23 07/12/23 Range/Units 16:41 19:42 WBC 4.46 L (4.50-11.00) K/uL RBC 3.85 L (4.00-5.20) m/uL Hgb 11.4 L (12.0-16.0) gm/dL Hct 35.4 (33.0-51.0) % MCV 92 (80-100) fL MCH 30 (26-34) pg MCHC 32 (32-36) gm/dL RDW Coeff of Will 13.4 (11.5-15.5) % Plt Count 157 (140-440) K/uL Neut % (Auto) 59.7 (42.0-72.0) % Lymph % (Auto) 25.1 (20-44) % [place] % (Auto) 13.2 H (0.0-11.0) % Eos % (Auto) 1.6 (0.0-7.0) % Baso % (Auto) 0.2 (0.0-3.0) % Neut # (Auto) 2.70 (1.7-7.0) K/uL Lymph # (Auto) 1.10 (0.90-2.90) K/uL [place] # (Auto) 0.60 (0.00-0.90) K/UL Eos # (Auto) 0.10 (0.00-0.50) K/uL Baso # (Auto) 0.00 (0.00-0.30) K/uL Abs Immat Gran (auto) 0.00 (0.00-0.30) K/uL Imm/Tot Granulo (auto) 0.2 % INR 1.08 (0.91-1.10) Sodium 135 (135-149) mmol/L Potassium 2.9 L* (3.6-5.1) mmol/L Chloride 101 (96-114) mmol/L Carbon Dioxide 26 (20-32) mmol/L Anion Gap 8 (7-15) mEq/L BUN 21 (7-30) mg/dL Creatinine 0.8 (0.5-1.5) mg/dL Estimated GFR 73 ml/min Glucose 187 H (60-115) mg/dL Lactate 1.3 (0.5-1.9) mmol/L Calcium 8.9 (8.4-10.6) mg/dL Total Bilirubin 0.6 (0.1-1.5) mg/dL Direct Bilirubin 0.0 (0.0-0.5) mg/dL AST 39 H (12-35) U/L ALT 13 (4-35) U/L Alkaline Phosphatase 58 (40-150) U/L Troponin I < 0.01 L (0.01-0.04) ng/mL C-Reactive Protein 0.5 (0.5-1.0) mg/dL NT-Pro-B Natriuret Pep 696 pg/mL Total Protein 6.4 (6.0-8.3) g/dL Albumin 4.0 (3.3-5.0) g/dL Amylase 82 (18-89) U/L Urine Color Yellow (Yellow) Urine Appearance Clear (Clear) Urine pH 6.5 (5.0-8.5) Ur Specific [place] 1.025 (1.000-1.030) Urine Protein Trace A (Negative) Urine Glucose (UA) Negative (Negative) Urine Ketones Negative (Negative) Urine Blood Negative (Negative) Urine Nitrite Negative (Negative) Urine Bilirubin Negative (Negative) Urine Urobilinogen 0.2 (0.2-1.0) Ur Leukocyte Esterase Negative (Negative) Urine RBC 0-2 (0-2) Urine WBC 0-2 (0-5) Ur Squamous Epith Cells Few (None-Few) Urine Bacteria Few A (None) SARS-CoV-2 (PCR) Negative SARS-CoV-2 (Negative) Influenza Type A (PCR) Negative PCR FLU A (Negative) Influenza Type B (PCR) Negative PCR FLU B (Negative) RSV (PCR) Negative PCR RSV (Negative) POC Troponin I 0.01 (0.01-0.04) ng/ml Discharge Plan Discharge Clinical Impression: Diarrhea, Weakness Patient Disposition: Home w/ Parent or Adult Condition: Improved Additional Instructions: May collect a stool sample for C diff at home, please send the container with her. Light activity, eat potassium rich foods. Recommend recheck with regular doctor in next 3-4 days. May return to ED any time of hearing problems or concerns. Activity Level: Light activity Discharge Diet: Regular Prescriptions: No Action rosuvastatin 10 mg tablet 10 mg PO HS Hold Instructions: Resume on 06/16/23. Following discharge hydrochlorothiazide 25 mg tablet 25 mg PO DAILY Hold Instructions: Resume on 06/15/23. Following discharge acetaminophen 500 mg capsule 500 - 1,000 mg PO Q6H MDD 4000mg per day PRN (Reason: pain) Qty: 100 0RF aspirin [Aspirin Childrens] 81 mg tablet,chewable 81 mg PO BID 30 Days Qty: 60 0RF sennosides [Senna Lax] 8.6 mg Tablet 17.2 mg PO BID PRN (Reason: constipation) Qty: 100 0RF glyburide 2.5 mg tablet 2.5 mg PO BID Hold Instructions: Resume on 06/16/23. Following discharge oxycodone 5 mg tablet 2.5 - 5 mg PO Q4-6H MDD 6 tabs per day PRN (Reason: Pain) Qty: 42 0RF Rx Instructions: Minimize. Discontinue as soon as possible Follow Up/Referrals: Zena Yuan MD [Primary Care Provider] - Stand Alone Forms: MyHealth Info Instructions
[2023-07-12 16:52] LABS: Lactate* 1.3 mmol/L (0.5-1.9)
[2023-07-12 16:55] LABS: Basophils Percent Auto 0.2 % (0.0-3.0); Eosinophils Percent Auto 1.6 % (0.0-7.0); Hematocrit 35.4 % (33.0-51.0); Hemoglobin* 11.4 gm/dL (12.0-16.0); Immature Granulocytes Pct Auto 0.2 %; Lymphocytes Percent Auto 25.1 % (20-44); Mean Corpuscular HGB Conc 32 gm/dL (32-36); Mean Corpuscular Hemoglobin 30 pg (26-34); Mean Corpuscular Volume 92 fL (80-100); Monocytes Percent Auto 13.2 % (0.0-11.0); Neutrophils Percent Auto 59.7 % (42.0-72.0); Platelet Count* 157 K/uL (140-440); RDW Coefficient of Variation % 13.4 % (11.5-15.5); Red Blood Count 3.85 m/uL (4.00-5.20); White Blood Count* 4.46 K/uL (4.50-11.00)
[2023-07-12 17:03] LABS: Slide Review Reflex No
[2023-07-12 17:04] LABS: Troponin, Point-of-Care* 0.01 ng/ml (0.01-0.04)
[2023-07-12] MEDS: 0.9 % SODIUM CHLORIDE 500 ML 500 ML IV (17:04)
[2023-07-12 17:11] LABS: Chloride* 101 mmol/L (96-114); Sodium* 135 mmol/L (135-149)
[2023-07-12 17:13] LABS: Amylase* 82 U/L (18-89); Creatinine* 0.8 mg/dL (0.5-1.5); Estimated Glomerular Filt Rate 73 ml/min
[2023-07-12 17:14] LABS: Alanine Aminotransferase* 13 U/L (4-35); Alkaline Phosphatase* 58 U/L (40-150); Aspartate Amino Transferase* 39 U/L (12-35); Bilirubin Total* 0.6 mg/dL (0.1-1.5); Blood Urea Nitrogen* 21 mg/dL (7-30); Carbon Dioxide* 26 mmol/L (20-32); Glucose* 187 mg/dL (60-115); Total Protein* 6.4 g/dL (6.0-8.3)
[2023-07-12 17:15] LABS: Calcium* 8.9 mg/dL (8.4-10.6)
[2023-07-12 17:17] LABS: C Reactive Protein* 0.5 mg/dL (0.5-1.0)
[2023-07-12 17:20] LABS: Anion Gap 8 mEq/L (7-15); Potassium* 2.9 mmol/L (3.6-5.1)
[2023-07-12 17:21] LABS: INR 1.08 (0.91-1.10); Prothrombin Time 14.7 Seconds
[2023-07-12 17:28] LABS: NT Pro B Type NatriureticPept* 696 pg/mL; Troponin I* < 0.01 ng/mL (0.01-0.04)
[2023-07-12 17:32] LABS: PCR FLU A Negative PCR FLU A (Negative); PCR FLU B Negative PCR FLU B (Negative); PCR RSV Negative PCR RSV (Negative)
[2023-07-12] MEDS: POTASSIUM CHLORIDE 10 MEQ/100 ML PIGGYBACK 100 MEQ IVPB (17:39)
[2023-07-12] MEDS: POTASSIUM BICARB 25 MEQ EFFERVESCENT TAB PO ×2 (17:39→19:48)
[2023-07-12 18:00] VITALS: BP 149/51; PULSE 65; RESP 24; O2SAT 92
[2023-07-12 18:03] LABS: SARS PCR* Negative SARS-CoV-2 (Negative)
[2023-07-12 18:30] VITALS: BP 154/58; PULSE 69; RESP 15; O2SAT 97
[2023-07-12 19:00] VITALS: BP 162/58; PULSE 64; RESP 15; O2SAT 98
[2023-07-12 19:26] VITALS: BP 140/65; PULSE 64; RESP 16; O2SAT 95
--- NOTE | 2023-07-12 19:31 | ED.NURSE ---
patient reconnected as [facility] [place] was hurting patient and given a break.
[2023-07-12 19:58] LABS: Appearance Urine Clear (Clear); Bilirubin Urine Negative (Negative); Blood Urine Negative (Negative); Color Urine Yellow (Yellow); Glucose Urine Negative (Negative); Ketones Urine Negative (Negative); Leukocyte Esterase Urine Negative (Negative); Nitrite Urine Negative (Negative); Protein Urine Trace (Negative); Specific Gravity Urine 1.025 (1.000-1.030); Urobilinogen Urine 0.2 (0.2-1.0); pH Urine 6.5 (5.0-8.5)
[2023-07-12 20:00] LABS: Bacteria Urine Few; RBC Urine 0-2 (0-2); Squamous Epithelial Cell Urine Few (None-Few); WBC Urine 0-2 (0-5)
[2023-07-14 14:26] LABS: C.Difficile Negative (Negative); CDIFFEPI 027 PRESUMPTIVE NEGATIVE (Negative)
== END 2023-07-12 19:59 | disposition home or self-care (01) ==
PROVIDERS: Emergency Provider Family Medicine; PCP Family Medicine
DX: R19.7 Diarrhea, unspecified (principal); R53.1 Weakness
CPT/HCPCS: 36415; 71045; 80048; 80076; 81001; 82150; 83605; 83880; 84484; 85025; 85610; 86140; 87086; 87493; 87631; 93005; 94761; 96365; 99285; A9270; J3480; J7120

== ENCOUNTER 2023-08-29 06:33 | Outpatient (CLI) | payer MEDICARE, OTHER, SELFPAY ==
[2023-08-29 06:51] VITALS: BP 127/67; PULSE 78; RESP 16; O2SAT 97
[2023-08-29 07:39] VITALS: BP 152/60; PULSE 61; RESP 16; O2SAT 99
--- NOTE | 2023-08-29 07:49 | P.ORPRC_ITS ---
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 COMPLICATIONS: None. SPECIMENS: None. DRAINS: None. PREOPERATIVE ANTIBIOTICS: None INDICATIONS: The patient is a 83-year-old with a history of right hip pain secondary to the above diagnoses. Despite appropriate non operative management, they continue to have symptoms. Operative intervention was recommended. The risks, benefits and expected outcomes were discussed in detail. These included but were not limited to: Infection, bleeding, injury to blood vessel or nerve, venous thromboembolism. All questions were answered to their satisfaction. PROCEDURE: The patient was placed in the lateral decubitus position. The right hip was imaged in the long and short axes with the ultrasound transducer. Normal acoustic landmarks were identified. We then sterilely prepped and draped the skin, and used a sterile probe cover with sterile gel. Local anesthesia was established with 10 mL of a solution containing 2 % lidocaine without epinephrine, 0.5% Marcaine without epinephrine and sodium bicarbonate. An 11 blade was used to incise the skin. The Tenex TX 2 micro tip was used to treat the abductor tendon for a total of 4 minutes and 40 seconds. The incision was Steri-Stripped closed. A dry dressing was applied. Sponge and needle counts were correct x2. The patient tolerated the procedure well. There were no apparent complications. They were discharged to home in satisfactory condition. PLAN: The patient may weightbear as tolerates. Tylenol can be used for pain /discomfort. They may ramp up activity as the hip will allow. They will follow up in the office in 6 weeks to assess their progress.
== END 2023-08-29 07:41 | disposition home or self-care (01) ==
LOC: US 06:35 → OP CLINIC 06:50
PROVIDERS: PCP Family Medicine; Visit Provider Orthopaedic Surgery
DX: M70.61 Trochanteric bursitis, right hip (principal)
CPT/HCPCS: 27006; 76942; J0665

== ENCOUNTER 2023-09-02 07:32 | Emergency (ER) | payer MEDICARE, OTHER, SELFPAY ==
[2023-09-02 07:59] VITALS: BP 176/74; PULSE 60; RESP 17; TEMP 36.2; O2SAT 99; BMI 30.8
--- NOTE | 2023-09-02 09:46 | ED_ITS ---
HPI - General Adult General Date Seen: 09/02/23 Chief complaint: Post Op Complication Stated complaint: post op knee/hip pain Time Seen by Provider: 09/02/23 08:04 History of Present Illness HPI narrative: This is a pleasant 83-year-old female accompanied to the ER this morning by her son for evaluation of right hip and knee pain, that makes it difficult for her to sleep. She has a past medical history of arthritis in her knee and underwent a right total knee replacement in June, 2 months ago. In her immediate postoperative. Her pain was managed with oxycodone and she had been healing nicely. She still doing physical therapy. For the past several weeks she has had some right hip pain. She was diagnosed with trochanteric bursitis. She underwent a surgical procedure by Orthopedics, Dr. Rodrigues, on Wednesday 08/29, 4 days ago. She says that he took out her trochanteric bursa. She was given another prescription for oxycodone to manage her postoperative pain from that. She was having a fair amount of hip pain on the morning following her surgery, Monday. She took oxycodone and got very nauseous, vomited, and felt dizzy. Since then she has not been wanting to take any oxycodone. She has been having a fair amount of pain in her hip, despite following her orthopedic surgeon's instructions. She has been having trouble sleeping because the pains particularly bothersome at night. She has been taking Tylenol which is not very effective in alleviating her pain. She did have some sweats at night a couple of nights ago but no other fevers. No redness. No swelling of her hip. No drainage from the incision. No fall or other injury. Her daughter helped her shower yesterday and took the dressings off her incision. This was the appropriate time after the surgery to remove the dressing. She says her daughter said it looked good. No signs of redness or infection. Because the hip and knee pain has been keeping her up at night, she came to the ER this morning with her son. She says during the day her hip early does not hurt too much. She is able to walk on it. She is just here because she has lot of pain at night that makes it hard for her to sleep. Related Data Home Medications Medication Instructions Recorded Confirmed hydrochlorothiazide 25 mg tablet 25 mg PO DAILY 06/17/22 08/16/23 rosuvastatin 10 mg tablet 10 mg PO HS 06/17/22 08/16/23 glyburide 2.5 mg tablet 2.5 mg PO BID 06/15/23 08/16/23 Previous Rx's Medication Instructions Recorded acetaminophen 500 mg capsule 500 - 1,000 mg (1 - 2 x 500 mg) PO 06/15/23 Q6H PRN pain #100 caps ondansetron 4 mg disintegrating 4 mg PO Q8H PRN nausea and 09/02/23 tablet vomiting #10 tabs Allergies Allergy/AdvReac Type Severity Reaction Status Date / Time metformin Allergy Verified 08/16/23 10:56 morphine Allergy Verified 08/16/23 10:56 niacin Allergy Verified 08/16/23 10:56 Sulfa (Sulfonamide Allergy Verified 08/16/23 10:56 Antibiotics) [facility] Medical History Vitamin D deficiency (01/19/10) ?E55.9 - Vitamin D deficiency, unspecified (ICD-10) Parotitis (06/02/11) ?K11.20 - Sialoadenitis, unspecified (ICD-10) Adenoma of left adrenal gland (01/19/10) ?D35.02 - Benign neoplasm of left adrenal gland (ICD-10) Diverticulosis (01/19/10) ?K57.90 - Diverticulosis of intestine, part unspecified, without perforation or abscess without bleeding (ICD-10) Cystocele (01/19/10) Hypertension (01/19/10) ?I10 - Essential (primary) hypertension (ICD-10) Hyperlipidemia (01/19/10) ?E78.5 - Hyperlipidemia, unspecified (ICD-10) Diabetes (01/19/10) ?E11.9 - Type 2 diabetes mellitus without complications (ICD-10) Urinary incontinence (01/19/10) ?R32 - Unspecified urinary incontinence (ICD-10) Arthritis (01/19/10) ?M19.90 - Unspecified osteoarthritis, unspecified site (ICD-10) Surgical History H/O oophorectomy (01/19/10) History of hysterectomy (01/19/10) ?Z90.710 - Acquired absence of both cervix and uterus (ICD-10) H/O foot surgery (01/19/10) ?Z98.890 - Other specified postprocedural states (ICD-10) Previous back surgery (01/19/10) ?Z98.890 - Other specified postprocedural states (ICD-10) History of facial surgery (01/19/10) ?Z98.890 - Other specified postprocedural states (ICD-10) Hx of cholecystectomy (01/19/10) ?Z90.49 - Acquired absence of other specified parts of digestive tract (ICD- 10) Hx of appendectomy (01/19/10) ?Z90.49 - Acquired absence of other specified parts of digestive tract (ICD- 10) Social History (Reviewed 07/26/23 @ 15:00 by Sola Bailey ~ [facility]) What is your current living situation?: I presently have a place to live In the past 12 months, utilities in danger of being shut off: no In past 12 months, lack of transportation kept you from medical appts, meetings, work, or getting things needed for daily living: no In the past 12 mos, have been you worried that your food would run out before you had money to buy more?: never true In the past 12 mos, the food you bought just didn't last and you didn't have money to buy more?: never true Smoking Status: Never smoker How often do you have a drink containing alcohol: never How often do you have six or more drinks on one occasion: Never AUDIT-C Alcohol total score: 0 Non-prescribed substance use: denies use Caffeine: No How often does anyone, including family, friends and others, physically hurt you : never How often does anyone, including family, friends and others, insult or talk down to you: never How often does anyone, including family, friends and others, threaten you with harm: never How often does anyone, including family, friends and others, scream or curse at you: never service: No Exam Narrative: Exam Narrative: Constitutional: Appears well-developed and well-nourished. Alert. Conversant. Non toxic. HENT: Head: Atraumatic. Nose: Nose normal. Mouth/Throat: Oral mucosa is clear and moist. no trismus. Pharynx normal. Tonsils symmetric. No tonsillar enlargement, erythema, or exudate. Eyes: Conjunctivae normal. EOM normal. Pupils equal, round, and reactive to light. No scleral icterus. Neck: Normal range of motion. Neck supple. No tracheal deviation present. Cardiovascular: Normal rate, regular rhythm. No gallop. No friction rub. No murmur heard. Symmetric radial artery pulses Pulmonary/Chest: Effort normal. No stridor. No respiratory distress. No wheezes. No rales. No rhonchi . No tenderness. Musculoskeletal: RUE: Normal range of motion. No tenderness. No deformity LUE: Normal range of motion. No tenderness. No deformity RLE: She has a healing incision over her right lateral hip/greater trochanter. Steri-Strips in place. Wound edges are well apposed. No drainage. There is no erythema. No palpable fluctuance or any sweats soft tissue swelling. There is a tiny rim of ecchymosis around the incision which I think could be normal postoperative findings. No other tenderness around the hip or pelvis, in the buttock, or SI joints. Quadriceps and hamstring are nontender. Normal range of motion to almost 90? in her right hip and past 90? in her right knee. Inspection of her knee is normal. Previous surgical incision is well-healed. No swelling. No visible or palpable effusion. No redness of the skin. No warmth. No bony deformity. Lower leg, ankle, and foot are nontender. No evidence for any peripheral edema, palpable cord, or other signs of DVT. Intact distal sensory and motor function. LLE: Normal range of motion. No edema. No tenderness. No deformity Lymph: No inguinal adenopathy or signs of spreading infection or is ascending lymphangitis. Neurological: Alert and oriented to person, place, and time. Normal strength. CN II-VII intact. No sensory deficit. GCS eye subscore is 4. GCS verbal subscore is 5. GCS motor subscore is 6. Normal coordination Skin: Skin is warm and dry. No rash noted. No pallor. Normal capillary refill. Psychiatric: Normal mood. Normal affect. Const: Vital Signs, click to edit/add: Vital Signs - 24 hr 09/02/23 07:59 Temperature 97.2 F L Pulse Rate [Pulse Oximeter] 60 Respiratory Rate 17 Blood Pressure [Ri ght Upper Arm] 176/74 H Pulse Oximetry 99 Course Vital Signs Vital signs: Initial Vital Signs Temperature 97.2 F L 09/02/23 07:59 Temperature Source Temporal Artery Scan 09/02/23 07:59 Pulse Rate 60 09/02/23 07:59 Respiratory Rate 17 09/02/23 07:59 Blood Pressure 176/74 H 09/02/23 07:59 Blood Pressure Mean 108 H 09/02/23 07:59 Pulse Oximetry 99 09/02/23 07:59 Vital Signs Temperature 97.2 F L 09/02/23 07:59 Pulse Rate 60 09/02/23 07:59 Respiratory Rate 17 09/02/23 07:59 Blood Pressure 176/74 H 09/02/23 07:59 Pulse Oximetry 99 09/02/23 07:59 Temperature 97.2 F L 09/02/23 07:59 Pulse Rate 60 09/02/23 07:59 Respiratory Rate 17 09/02/23 07:59 Blood Pressure 176/74 H 09/02/23 07:59 Pulse Oximetry 99 09/02/23 07:59 Medical Decision Making [facility] [place] Narrative Medical decision making narrative: 83-year-old female presents to the ER this morning for right hip and right knee pain. She had a right hip bursa/tenotomy surgery 4 days ago and has been having a lot of pain since then. She had taken oxycodone after her knee surgery in June and did well with that but was unable to tolerate oxycodone which she took a dose on postop day 1 so has been trying to manage pain with Tylenol alone. She feels like she needs something stronger for pain but does not want to take oxycodone because of the GI side effect. Interestingly, she does not recall having nausea from oxycodone when she took it in June. She was only taking 2.5 mg when she took it on Monday. This was the same dose she took in June. Plan will be to add Zofran that she will use 30-60 minutes before she takes occur oxycodone to try to prevent nausea and GI side effects. She thinks with that she will be able to take oxycodone and manage her pain. My differential here is broad. Cook with unusual postoperative pain would consider complications such as fracture, infection, DVT, bleeding, hematoma. However at this point her exam of her leg and incision and knee and hip is normal. Using shared decision-making, we decided to hold off on any advanced imaging with CT or MRI, laboratory workup. We will treat her nausea so that she can take oxycodone for pain. My recommendation was to give a dose of Zofran oxycodone here in the ER to make sure that they are effectively managing her symptoms. She says she is really not having much pain this morning and does not want oxycodone right now. She would rather have a prescription for Zofran and take it tonight before she takes oxycodone at bedtime. She will monitor carefully. Precautions for return to the ER reviewed, especially if signs of evolving swelling or redness or other signs of infection occur. Questions answered. Patient is agreeable. Discharge Plan Discharge Clinical Impression: Acute pain of right hip, Nausea Patient Disposition: Home, Self-Care Condition: Stable Instructions: Acute Nausea and Vomiting (ED), Hip Pain (ED) Additional Instructions: Continue to follow your orthopedic surgeon's instructions for your hip and your knee. Use Tylenol or other [id number] pain medications to treat your pain. If you have severe pain or pain uncontrolled by those medications it is okay to use oxycodone. Sometimes oxycodone causes nausea and vomiting as a side effect. It can also cause constipation, dizziness, and drowsiness. If you need to take oxycodone, take nausea medicine (Zofran) 30-60 minutes before you take the oxycodone. Monitor carefully. If you have worsening pain, swelling, redness of your hip or knee, fever or chills, weakness, uncontrolled nausea or vomiting, or any pr oblems, please call your surgeon or come back to the ER right away. Use caution with oxycodone. It can cause dizziness and unsteadiness. Do not drive a car for at least 6 hours after you take oxycodone. Prescriptions: New ondansetron 4 mg tablet,disintegrating 4 mg PO Q8H PRN (Reason: nausea and vomiting) Qty: 10 0RF No Action rosuvastatin 10 mg tablet 10 mg PO HS Hold Instructions: Resume on 06/16/23. Following discharge hydrochlorothiazide 25 mg tablet 25 mg PO DAILY Hold Instructions: Resume on 06/15/23. Following discharge acetaminophen 500 mg capsule 500 - 1,000 mg PO Q6H MDD 4000mg per day PRN (Reason: pain) Qty: 100 0RF glyburide 2.5 mg tablet 2.5 mg PO BID Hold Instructions: Resume on 06/16/23. Following discharge Follow Up/Referrals: Zena Yuan MD [Primary Care Provider] - Stand Alone Forms: Command Information Info Instructions
== END 2023-09-02 09:41 | disposition home or self-care (01) ==
LOC: ED 09:31
PROVIDERS: Emergency Provider Emergency Medicine; PCP Family Medicine
DX: M25.551 Pain in right hip (principal); R11.0 Nausea
CPT/HCPCS: 95992; 99283

== ENCOUNTER 2023-09-08 15:15 | Outpatient (RCR) | payer MEDICARE, OTHER, SELFPAY ==
--- NOTE | 2023-06-05 17:25 | PT.OPEX ---
PT [place] Outpatient Eval PT [facility] Outpatient Eval Start: 06/05/23 08:59 Freq: Status: Active Protocol: Document 06/05/23 08:59 AMS (Rec: 06/05/23 17:20 AMS [id number]) E-signed By Dionna Colon PT Physical Therapy Outpatient Evaluation Insurance Information Recert Due Date 08/29/23 Insurance Name Medicare B Medical Diagnosis Right TKA 06/15/23 pre-op Treating Diagnosis Right knee pain Aftercare following joint replacement Difficulty walking Muscle weakness Referring MD Torres Subjective Subjective Dipika returns today with ongoing right knee pain. She reports no interval changes. She would like to discuss her options today. She has global pain in her knee with activity. This keeps her from doing the things she would like to do. If she goes on a cruise ship she does not leave the ship because of knee pain . Additionally, she uses a motorized scooter because of right knee pain. She has type 2 diabetes, does not smoke cigarettes and is not on blood thinners. -Dr. Torres, , confirmed by patient Patient presents to physical therapy for pre-op for right TKA. She states that her knee has been bothering her for many years. Her pain is most severe at night and limits her from walking longer than grocery store distances. She does not use a gait aid. She lives in a [facility] on main floor that is handicapped already, so she has all the equipment she needs minus the front-wheeled walker. She has three stairs to enter the home with a railing on the left. Otherwise, no stairs she needs to do. Her bathroom is very close to her bedroom with a clear walkway. Her niece and daughter will be available between the two of them 24-7 after her surgery. Patient states her worst pain level is a 7/10 and best is a 5/10. Her goal is to be able to have no pain at night and walk unrestricted distances following her surgery. 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 Preferred Name Laverne Precautions Treatment Precautions/Contraindications Diabetes type II, hypertension , jaw replacement, 6 back surgeries with lumbar fusion Weight Bearing Status Weight Bear as Tolerated Objective Other/Pertinent Objective Objective: Knee ROM L 0-0-122 R 0-0-122 Hip ROM Within normal limits Strength: Hip flexors: R 5/5 L 5/5 Knee extensors: R 5/5 L 5/5 Gait/balance: Ambulates with lengthened step length on right, mildly antalgic, no gait aid Palpation/joint mobility: TTP over tibial tuberosity/plateau on right Swelling/observation: No swelling noted Assessment Assessment/Impression Patient is a 83 year old female presenting for pre- operative visit prior to right total knee arthroplasty scheduled for 06/15/23. Upon assessment, patient demonstrates decreased proximal hip/quad force output , pain with weightbearing activities, and antalgic gait pattern. These impairments lead to difficulties with walking short distances, squatting, sleeping soundly, performing stairs, and recreational activities. Patient will be seen post operatively to reassess impairments that will be addressed with skilled care. Laverne would greatly benefit from skilled PT in order to progress strength, ROM, and ambulation post operatively in order to perform all household and work duties without significant difficulty or discomfort. Primary Functional Limitations walking short distances, squatting, sleeping soundly, performing stairs, and recreational activities Plan of Care Rehabilitation Potential Good Physical Therapy Goals After pre-op visit: ? Patient will be independent with HEP ? Patient will verbalize knowledge of stair navigation and proper sequencing ? Patient will have knowledge on home adaptations and use of assistive devices post operatively ? Patient will have knowledge of edema management ALL MET Coordination/Communication With Referral Source Treatment Plan/Direct Interventions Gait Training,Joint Mobilization,Manual Therapy, Neuromuscular Re-ed,Self-Care/ Home Management,Therapeutic Activities,Therapeutic Exercises Frequency/Duration 1x visit prior to surgery on . Patient scheduled to start outpatient PT s/p TKA on 06/21/23. Has HEP to start with pre-operatively. Patient Will Be Discharged From Therapy Completion of LTG(s), Independent w/HEP, Independently Progressing Evaluation Billing Untimed Code Treatment Minutes 15 Complexity Low Certification Information Initial Certification Date 06/05/23 Ending Certification Date 08/29/23 Provider Signature Shows Agreement With POC & Medical Necessity Physician Signature & Date Requested Please Sign/Date Here Physician Comment/Change : Physician NPI Number #
--- NOTE | 2023-06-22 07:40 | PT.OPDNX ---
PT [facility] Daily Note PT [facility] Daily Note Start: 06/05/23 08:59 Freq: Status: Active Protocol: Document 06/21/23 08:45 AMS (Rec: 06/21/23 16:51 AMS [id number]) E-signed By Dionna Colon, PT PT OP Daily Progress Note Visit Information Note Type Daily Note,Re-Evaluation Visit Number 2 Insurance Information Recert Due Date 08/29/23 Insurance Name Medicare B Medical Diagnosis Right TKA 06/15/23 pre-op and post-op Treating Diagnosis Right knee pain Aftercare following joint replacement Difficulty walking Muscle weakness Referring MD Torres Subjective Subjective Patient presents to physical therapy 1 week s/p right TKA. She states that pain has been well-managed at night (sleeps in recliner with a lift chair component to help stand), but increased throughout the day. She presents with volodymyr Hurtado, who is staying with her as long as needed. She has been using her FWW regularly. She is icing consistently. She states she had no problem with the stairs to get into the house. Getting her pants on are challenging. It is difficult to get her leg in and out of the car/bed. Exercises going okay, but knee extension stretch, LAQ, SAQ, and SLR are challenging, as she is unable to do them. Goals are walking without pain . She took one half of her oxycodone in the lobby prior to PT, but it has not kicked in yet, and her pain is worse today than all week after walking into the clinic and sitting down. Able to shower and transfer independently, and she tries to go on a short walk around the house every hour. Pain Comments Best 5/10, worst 8/10 Preferred Name Laverne Precautions Treatment Precautions/Contraindications Diabetes type II, hypertension , jaw replacement, 6 back surgeries with lumbar fusion Weight Bearing Status Weight Bear as Tolerated Home Exercise Home Exercise Comments TKA protocol Objective Other/Pertinent Objective Knee ROM L 0-0-122 R 0-5-85 with OP, limited by pain Strength: Quad set: poor, max cues SLR: unable without mod A Gait/balance: Ambulates with step-to pattern on right and FWW. Offloads R LE, decreased stance time on R. Transfers: unable to stand from standard height chair with one UE, requires elevated surface; prefers two hands on FWW when standing unless cued Palpation/joint mobility: Hypertonicity noted throughout quad, calf and hamstring. Swelling/observation: Moderate bruising noted on posterior and lateral LE Superior patella: R 60 cm Mid patella: R 46 cm Inf patella: R 48 cm Patient Instructed in Risks/Benefits Yes Therapeutic Exercise Therapeutic Exercise Minutes (minutes) 30 Therapeutic Exercise: To Restore Extensive review and education Functional Status on what to expect post- operatively. Time was spent discussing use of front- wheeled walker, pain control, swelling management, and expectations for post-op rehab progression. Performed and reviewed the following exercises for improved quad activation, ROM, and pain control w/ verbal/ tactile cues as needed: -Ankle pumps x 20 reps seated -SAQ with mod A x 15 reps -Long arc quads - unable -Straight leg raises x 10 reps w/ mod A from therapist; can replicate at home with strap or Genesis assist -Quad sets x 20 reps in supine ; trialed in seated but poor coordination -Knee extension stretch x 2 min w/ bolster at calf (better tolerated than at ankle) -Discussed and reviewed safe transfers (one hand on chair, one on FWW to avoid tipping); patient able to complete w/ elevated surface and cues for anterior weight shift/ offloading on R Pt's questions were answered to the best of my ability, and pt verbalized and demonstrated understanding. Treatment Minutes Untimed Code Treatment Minutes 10 Timed Code Treatment Minutes 30 Total Treatment Time 40 Billing Units Therapeutic Exercise Units 2 Re-Evaluation Units 1 Assessment/Impression Assessment/Impression Patient is a 83 year-old female who presents to physical therapy for evaluation 1 weeks s/p right total knee arthroplasty on . Upon assessment, patient demonstrates decreased knee ROM, impaired gait, decreased lower extremity strength, poor quad contraction due to pain/ inhibition, and swelling. These impairments lead to limitations with walking, squatting, and climbing stairs . Today's session limited due to patient's high pain levels; discussed timing her medication as prescribed thirty minutes to one hour before therapy for improved ability to perform with less pain. Pt requires mod A to perform a SAQ/SLR due to significant quad inhibition/ pain. Significant LE weakness as demonstrated by difficulty performing STS without significantly elevated surface ; pt able to teach back safety with FWW while transferring with cues. Patient would benefit from skilled PT to address impairments stated above in order to to perform all functional and recreational activities without significant difficulty or discomfort. Plan of Care Physical Therapy Goals Post op goals: In 4-6 visits: 1. Patient will improve knee ROM to > 100 degrees for improved ease of STS transfers . 2.Patient will ambulate with improved mechanics and less than 3/10 knee pain with or without AD >150' for improved household/community mobility. 3. Patient will perform x5 SLR with improved form and strength to improve supine<> sit transfer. In 12-20 visits: 1. Patient will improve knee ROM to >115 degrees in order to comfortably navigate stairs for household and community navigation. 2. Patient will be able to walk up to 10 minutes without use of assistive device or report of increased knee pain. Daily Plan of Care Continue per POC Daily Plan of Care Comments NMES? Quad strengthening, ROM, pain/swelling control Recertification Information Provider Signature Shows Agreement With POC & Medical Necessity
== END 2023-11-20 12:51 | disposition home or self-care (01) ==
PROVIDERS: PCP Family Medicine; Visit Provider Orthopaedic Surgery
DX: M17.11 Unilateral primary osteoarthritis, right knee (principal); Z96.651 Presence of right artificial knee joint; M25.561 Pain in right knee; Z47.1 Aftercare following joint replacement surgery; M62.81 Muscle weakness (generalized); R26.2 Difficulty in walking, not elsewhere classified; Z51.89 Encounter for other specified aftercare
CPT/HCPCS: 97110; 97112; 97116; 97140; 97161; 97164

== ENCOUNTER 2023-12-23 15:39 | Emergency (ER) | payer MEDICARE, OTHER, SELFPAY ==
[2023-12-23 15:50] VITALS: BP 144/67; PULSE 78; RESP 18; TEMP 36.3; O2SAT 96; BMI 27.5
--- NOTE | 2023-12-23 16:33 | ED_ITS ---
HPI - General Adult General Date Seen: 12/23/23 Chief complaint: Extremity Pain/Injury, Lower Stated complaint: Pain in left leg, fell Time Seen by Provider: 12/23/23 16:00 History of Present Illness HPI narrative: 83-year-old female with a history of knee arthritis and knee replacement last fall, arthritis, hypertension, diabetes, left adrenal adenoma, presenting to the ER today for pain in her left groin and thigh. She had a fall about 10 days ago with increasing pain over the past 2 days. Patient reports that she had had her knee replaced last June and recover from that. She did her winter in [place]. She notes that it was a bad winter because her sister and her brother both . She had a couple falls over the winter but no serious injuries. She had a fall about 10 days ago when she was in [place]. She had her head and had some minor pain in her left hip and left proximal thigh but overall was doing well. She traveled home by air, 2 days ago from [place] and now is back home in [place] for the spring and summer. She did not do anything to exacerbate her pain but has been worse since she has traveled home. She used a wheelchair to get through the airport. No other known injury. She has been having increasing pain in her left lateral and anterior hip and and her left proximal thigh just below the groin crease. No other pain radiating down her leg. No weakness. The pain is particularly bad when she tries to actively flex her hip. No back pain. No right leg symptoms. Her knee has healed nicely. She has been using ibuprofen with limited effect. She has also tried muscle relaxers which make her drowsy but do not help with the pain. Because of the worsening pain she has already scheduled an appointment with her orthopedist, Dr. Issa, and has that coming on Monday, 2 days from now. She came to the ER today because her pain is getting worse. No headache, confusion, nausea or vomiting. No neck pain. No other injury aside from her left hip/groin. Related Data Home Medications Medication Instructions Recorded Confirmed hydrochlorothiazide 25 mg tablet 25 mg PO DAILY 06/17/22 09/06/23 rosuvastatin 10 mg tablet 10 mg PO HS 06/17/22 09/06/23 glyburide 2.5 mg tablet 2.5 mg PO BID 06/15/23 09/06/23 Previous Rx's Medication Instructions Recorded acetaminophen 500 mg capsule 500 - 1,000 mg (1 - 2 x 500 mg) PO 06/15/23 Q6H PRN pain #100 caps ondansetron 4 mg disintegrating 4 mg PO Q8H PRN nausea and 09/02/23 tablet vomiting #10 tabs Allergies Allergy/AdvReac Type Severity Reaction Status Date / Time metformin Allergy Verified 09/06/23 11:28 morphine Allergy Verified 09/06/23 11:28 niacin Allergy Verified 09/06/23 11:28 Sulfa (Sulfonamide Allergy Verified 09/06/23 11:28 Antibiotics) [facility] Medical History (Updated 12/23/23 @ 18:00 by Shar Guan MD) Vitamin D deficiency (01/19/10) ?E55.9 - Vitamin D deficiency, unspecified (ICD-10) Parotitis (06/02/11) ?K11.20 - Sialoadenitis, unspecified (ICD-10) Adenoma of left adrenal gland (01/19/10) ?D35.02 - Benign neoplasm of left adrenal gland (ICD-10) Diverticulosis (01/19/10) ?K57.90 - Diverticulosis of intestine, part unspecified, without perforation or abscess without bleeding (ICD-10) Cystocele (01/19/10) Hypertension (01/19/10) ?I10 - Essential (primary) hypertension (ICD-10) Hyperlipidemia (01/19/10) ?E78.5 - Hyperlipidemia, unspecified (ICD-10) Diabetes (01/19/10) ?E11.9 - Type 2 diabetes mellitus without complications (ICD-10) Urinary incontinence (01/19/10) ?R32 - Unspecified urinary incontinence (ICD-10) Arthritis (01/19/10) ?M19.90 - Unspecified osteoarthritis, unspecified site (ICD-10) Surgical History (Updated 09/06/23 @ 11:43 by Shayy Lea) 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) ?Z96.651 - Presence of right artificial knee joint (ICD-10) History of hip surgery (08/29/23) ?Z98.890 - Other specified postprocedural states (ICD-10) H/O oophorectomy (01/19/10) History of hysterectomy (01/19/10) ?Z90.710 - Acquired absence of both cervix and uterus (ICD-10) H/O foot surgery (01/19/10) ?Z98.890 - Other specified postprocedural states (ICD-10) Previous back surgery (01/19/10) ?Z98.890 - Other specified postprocedural states (ICD-10) History of facial surgery (01/19/10) ?Z98.890 - Other specified postprocedural states (ICD-10) Hx of cholecystectomy (01/19/10) ?Z90.49 - Acquired absence of other specified parts of digestive tract (ICD- 10) Hx of appendectomy (01/19/10) ?Z90.49 - Acquired absence of other specified parts of digestive tract (ICD- 10) Social History (Reviewed 07/26/23 @ 15:00 by Sola Bailey ~ [facility], [facility]) What is your current living situation?: I presently have a place to live In the past 12 months, utilities in danger of being shut off: no In past 12 months, lack of transportation kept you from medical appts, meetings, work, or getting things needed for daily living: no In the past 12 mos, have been you worried that your food would run out before you had money to buy more?: never true In the past 12 mos, the food you bought just didn't last and you didn't have money to buy more?: never true Smoking Status: Never smoker How often do you have a drink containing alcohol: never How often do you have six or more drinks on one occasion: Never AUDIT-C Alcohol total score: 0 Non-prescribed substance use: denies use Caffeine: No How often does anyone, including family, friends and others, physically hurt you : never How often does anyone, including family, friends and others, insult or talk down to you: never How often does anyone, including family, friends and others, threaten you with harm: never How often does anyone, including family, friends and others, scream or curse at you: never service: No Exam Narrative: Exam Narrative: Constitutional: Appears well-developed and well-nourished. Alert. Conversant. Non toxic. HENT: Head: Atraumatic. Exam head try Nose: Nose normal. Mouth/Throat: Oral mucosa is clear and moist. no trismus. Pharynx normal. Eyes: Conjunctivae normal. EOM normal. Pupils equal, round, and reactive to light. No scleral icterus. Neck: Normal range of motion. Neck supple. No tracheal deviation present. Cardiovascular: Normal rate, regular rhythm. No gallop. No friction rub. No murmur heard. Symmetric PT artery pulses Pulmonary/Chest: Effort normal. No stridor. No respiratory distress. No wheezes. No rales. No rhonchi . No tenderness. Abdominal: Soft. Bowel sounds normal. No distension. No mass. No tenderness. No rebound. No guarding. Musculoskeletal: No midline tenderness or step-off of the thoracic lumbar spine. Pelvis is stable. She is tender over the left iliac ridge and spine. Left hip: Mildly tender over the left lateral hip but she is very tender over the left anterior proximal femur just below the groin crease. Range of motion left hip is limited to about 45 flexion. She has a lot of pain with internal and external rotation. She is able to flex her knee to almost 45? when she bends her knee but she is not able to lift her leg off the bed when she tries to keep her knee straight. No tenderness in the femoral shaft, quadriceps, hamstring. Knee nontender. Normal range of motion. Lower leg, ankle, foot are normal. Intact medial and lateral malleoli sensation. Normal sensation or dorsal 1st webspace and sole of the foot. Strong distal pulses. Normal distal cap refill RUE: Normal range of motion. No tenderness. No deformity LUE: Normal range of motion. No tenderness. No deformity RLE: Normal range of motion. No edema. No tenderness. No deformity Lymph: few small nontender inguinal left side lymph nodes Neurological: Alert and oriented to person, place, and time. Normal strength. CN II-VII intact. No sensory deficit. GCS eye subscore is 4. GCS verbal subscore is 5. GCS motor subscore is 6. Normal coordination Skin: No bruising or redness or ecchymosis of the skin of her hip, groin, thigh. is warm and dry. No rash noted. No pallor. Normal capillary refill. Psychiatric: Normal mood. Normal affect. Const: Vital Signs, click to edit/add: Vital Signs - 24 hr 12/23/23 15:50 Temperature 97.4 F L Pulse Rate [Right Pulse Oximeter] 78 Respiratory Rate 18 Blood Pressure [Ri ght Upper Arm] 144/67 H Pulse Oximetry 96 Oxygen Delivery Me thod Room Air Course Vital Signs Vital signs: Initial Vital Signs Temperature 97.4 F L 12/23/23 15:50 Temperature Source Temporal Artery Scan 12/23/23 15:50 Pulse Rate 78 12/23/23 15:50 Respiratory Rate 18 12/23/23 15:50 Blood Pressure 144/67 H 12/23/23 15:50 Blood Pressure Mean 92 12/23/23 15:50 Blood Pressure Position Sitting 12/23/23 15:50 Pulse Oximetry 96 12/23/23 15:50 Oxygen Delivery Method Room Air 12/23/23 15:50 Vital Signs Temperature 97.4 F L 12/23/23 15:50 Pulse Rate 78 12/23/23 15:50 Respiratory Rate 18 12/23/23 15:50 Blood Pressure 144/67 H 12/23/23 15:50 Pulse Oximetry 96 12/23/23 15:50 Oxygen Delivery Method Room Air 12/23/23 15:50 Temperature 97.4 F L 12/23/23 15:50 Pulse Rate 78 12/23/23 15:50 Respiratory Rate 18 12/23/23 15:50 Blood Pressure 144/67 H 12/23/23 15:50 Pulse Oximetry 96 12/23/23 15:50 Oxygen Delivery Method Room Air 12/23/23 15:50 Medications Administered Medications: Generic Name Dose Route Start Last Admin Trade Name Freq PRN Reason Stop Dose Admin Oxycodone HCl 5 mg 12/23/23 16:44 12/23/23 17:06 Oxycodone 5 Mg Tablet PO 12/23/23 16:45 5 mg ONCE ONE Administration Medical Decision Making MDM Narrative Medical decision making narrative: Very pleasant 83-year-old female presenting to the ER today with her son for evaluation of left hip and proximal thigh pain. She had a mechanical trip and fall about 10 days ago with only very mild symptoms adverse but pain has been getting worse for the past 2 days ever since she flew home from [place]. No clear re-injury or overuse. She used a wheelchair while traveling on an airplane. Initial concern were foot was for possible occult hip or pelvic bone fracture. MRI would be most sensitive to look for subacute injuries but is not available to me here in the ER today. We did obtain CT scan of the patient's left hip which is fortunately negative for any acute fracture. She is not having any low back pain or any radicular pain down the leg to suggest a lumbar radiculopathy or lumbar spine fracture. No abdominal pain or flank pain to suggest kidney stone or intra-abdominal process manifesting as left hip pain. No swelling of the leg tissue show sign of DVT and the pain is clearly triggered by flexion of the hip and palpation at the hip. At this point I do not think she needs DVT ultrasound. Incidentally , CT scan of the left hip shows a small amount of ascites and a few nonspecific left inguinal lymph nodes. She does have a couple palpable nodes ago on exam but no signs of any infection in her leg, cellulitis, or lymphadenitis. No abdominal pain or tenderness. No CVA tenderness. Discussed with the patient. She will follow-up with her doctor for recheck within 1-2 weeks. She already has an appointment scheduled on Monday with her orthopedist for this left hip and groin pain. She will keep that appointment. Until then she use her walker to help with balance and walking at home. She feels better after oxycodone given here in the ER. Instymeds prescription for oxycodone (Percocet 5/325)-10 tablets provided. She understands opiate and sedation precautions. Discharge Plan Discharge Clinical Impression: Acute pain of left hip Patient Disposition: Home, Self-Care Condition: Stable Instructions: Hip Pain (ED) Additional Instructions: As we discussed, please come back to the ER right away if you have any problems especially worsening pain, inability to walk or bear weight, high fever, swelling in your leg or thigh, or if you have any other concerns. Use oxycodone (Percocet) if needed for pain. Be careful with Percocet because this can cause drowsiness and dizziness and can be addictive. Follow-up with your orthopedist on Monday as scheduled. Follow-up with your regular doctor within 1-2 weeks to recheck for the lymph nodes noted on your CT scan. Prescriptions: No Action rosuvastatin 10 mg tablet 10 mg PO HS Hold Instructions: Resume on 06/16/23. Following discharge hydrochlorothiazide 25 mg tablet 25 mg PO DAILY Hold Instructions: Resume on 06/15/23. Following discharge acetaminophen 500 mg capsule 500 - 1,000 mg PO Q6H MDD 4000mg per day PRN (Reason: pain) Qty: 100 0RF glyburide 2.5 mg tablet 2.5 mg PO BID Hold Instructions: Resume on 06/16/23. Following discharge ondansetron 4 mg tablet,disintegrating 4 mg PO Q8H PRN (Reason: nausea and vomiting) Qty: 10 0RF Follow Up/Referrals: Zena Yuan MD [Primary Care Provider] - Stand Alone Forms: [facility] Info Instructions
--- NOTE | 2023-12-23 16:44 | CT_ITS ---
Patient: KENDAL PELAYO Facility:?[facility] Patient ID:?[id number] Site Patient ID:?[id number]. Site :?[id number] Study:?CT-Hip Left -12/23/2023 5:03:38 PM Ordering Physician:Shar Talbot Final Report: INDICATION: Fall. Left hip and pelvic pain. TECHNIQUE: Noncontrast CT scan of the pelvis with re-formatted images obtained. FINDINGS: No evidence of acute fracture or dislocation. The hip joints appear intact. Stabilization hardware in the lumbar spine. Small amount of ascites. Prominent left pelvic sidewall and left inguinal lymph nodes measuring up to 1.1 cm in short axis. Impression : 1. No evidence of acute fracture or dislocation. 2. Small amount of ascites. Prominent left pelvic sidewall and left inguinal lymph nodes are a nonspecific finding. Dictated by Bernardino Vazquez MD @ 12/23/2023 5:25:35 PM Please note that all CT scans at this facility use dose modulation, iterative reconstruction, and/or weight-based dosing when appropriate to reduce radiation dose to as low as reasonably achievable. Dictated by: Bernardino Vazquez MD @ 12/23/2023 17:25:44 Signed by:?Bernardino Vazquez MD @12/23/2023 5:25:44 PM (Electronic Signature)
[2023-12-23] MEDS: OXYCODONE 5 MG TABLET PO (17:06)
--- OUTSIDE RECORDS SUMMARY | 2023-12-23 17:06 | XMS_ITS | Encounter Summary ---
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 Social History Tobacco Use Types Packs/Day Years Used Date Smoking Tobacco: Never Assessed Sex and Gender Information Value Date Recorded Sex Assigned at Not on file Gender Identity Not on file Sexual Orientation Not on file documented as of this encounter Progress Notes * Aldair Espinosa M.D. - 07/17/2003 12:00 AM CST Eye General CHIEF COMPLAINT Ache over eye HISTORY OF PRESENT ILLNESS 63 y.o. white female with a gradual onset 3 year history of continuous modest pain over leftt uppereyelid, which at times generalizes to the left hemiface and neck with increase in intensity un relieved by OTC analgesics. Concomitantly, but not simultaneously, exists sporadic episodes of tearing/epiphora OS without obvious associated eye stress such as wind or reading. She also notes chronic left nasal watery discharge, not related to tearing. . Occasional facial pruritis, but no ocular pruritis. No facial trauma. No facial surgery. No history of shingles. No history of arthritis or thyroid disease. Neck X-ray negative. CT scan at [facility] negative. No neurologic evaluation. + photophobia with severe h/a, no change in vision/fortification spectra; migraine h/a 20 years ago on OCP, resolved off OCP. No smoking. No conj injection noted with increased tearing. 1 episode left mid-facial pain last year dx'd clinically as max sinusitis, resolved with oral Ab tx.No significant incr pain on EOM. Dr. Ramon Molina of [place] follows Mrs. Marcus from the ophthalmic viewpoint and Dr. Chase [facility] from the medical viewpoint. IMPRESSION / REPORT / PLAN #1 left supraorbital/periorbital/hemicranial pain #2 intermittent tearing OS with patent lacrimal outflow system. #3 left rhinorrhea Our examination findings today were reviewed in detail. There is no evidence of an ocular/orbital inflammatory disorder which would be responsible for Mrs. Franco's symptoms. While it is difficult to exclude trochleitis, in my experience this is often responsive to NSAID tx, and in my experience the discomfort assoc. with this disorder does not radiate in the fashion described by Mrs. Marcus. Other diagnostic possibilities would include supraorbital/trigeminal neuralgia, cluster h/a type syndrome (with assoc rhinorrhea), although tearing is not strictly related to h/a, and there is no hx of ocular injection. I would recommend neuro-ophthalmic/ neurologic evaluation as well as ENT evaluation of r hinorrhea/hx of sinusitis, as well as axial/coronal orbital CT with contrast. I would defer to neuro-ophthalmic/neurology team concerning whether MR would be helpful to visualize cavernous sinus. Mrs. Mae is traveling to [place] 07/29 and at her request we will try to coordinate her evaluation here priorto departure. If this is not possible, Mrs. Marcus indicates she has been seen at [facility] and would be happyto return there for completion of her evaluation. I have asked her to call me after she has her CT if done here, and have taken the liberty of giving Mrs. Mae the name of Dr. Dustin Brennan as an outstanding specialist in terms of her ongoing evaluation if necessary at [facility]. Letter dict to Miladys Pittman, and Mika. corresp: August 04, 2003 Javier Molina M.D. [facility] [address] [address] RE: Mrs. Dipika Franco #: [phone] : [phone] [address] Molina: Thank you very much for referring Mrs. Franco for orbital and oculoplastic evaluation. Enclosed, please find a copy of her consult note which further outlines her exam findings here. With your permission, Mrs. Franco's further evaluation will be coordinated through [facility] and [facility], in view of her upcoming travels to [place] this winter. We will certainly keep you posted concerning her subsequent course here. I have taken the liberty of forwarding a copy of this note to her handcrew foreman, Dr. Armand Rendon, as requested by Mrs. Franco. Thank you, again, for allowing me to share in the care of this most pleasant patient. Best wishes. Sincerely, Mikey Murillo:sr enclosure - cdm report of 07/17/03 cc: Dr. Armand Rendon, [place], [place] Dr. Dustin Brennan, [facility] DIAGNOSIS #1 left supraorbital/periorbital/hemicranial pain #2 intermittent tearing OS with patent lacrimal outflow system. #3 left rhinorrhea CDM Reports - EYEGEN Id: [id number] Status: Fnl documented in this encounter Plan of Treatment Not on file documented as of this encounter Visit Diagnoses Not on filedocumented in this encounter
--- OUTSIDE RECORDS SUMMARY | 2023-12-23 17:06 | XMS_ITS | Clinical Summary ---
Author Name Unknown Organization [employer] [facility] Address [place], [place] [address] Care Team Providers Care Academic Assistant Name Role Phone [facility] Unavailable [phone] Zena Yuan MD Primary Care Provider Allergies Active Allergy Reactions Criticality Noted Date Comments Metformin Nausea Only 04/01/2013 Patient states I felt like I had morning sickness every morning Niacin Hives 03/01/2006 Sulfa (Sulfonamide Antibiotics) Hives 03/01/2006 Medications Medication Sig Dispensed Refills Start Date End Date Status acetaminophen (TYLENOL) 325 mg tabletIndications: S/P cervical spinal fusion Take 2 tablets by mouth every 4 hours if needed. Max acetaminophen dose: 4000mg in 24 hrs. 120 tablet 06/01/2019 Active sennosides-docusat e, 8.6-50 mg, (SENOKOT S) 8.6-50 mg tabletIndications: S/P cervical spinal fusion Take 1-4 tablets by mouth 2 times daily. 120 tablet 06/01/2019 Active blood-glucose meterIndications:D iabetes mellitus without complication (HC) As directed. Dispense meter, test strips, lancets covered by pt ins. E11.9 NIDDM type II - Test 1 time/day 1 Device 03/19/2021 Active lancets (Accu-Chek Fastclix Lancet Drum)Indications:D iabetes mellitus without complication (HC) As directed once daily. Dispense item covered by pt ins. E11.9 NIDDM type II - Test 1 time/day 100 Each 3 03/30/2022 Active blood sugar diagnostic (Blood Glucose Test) stripIndications:D iabetes mellitus without complication (HC) Test 1 times per day. 100 Each 1 10/05/2022 Active hydroCHLOROthiazid e (HCTZ) 25 mg tabletIndications: Essential hypertension Take 1 Tablet (25 mg) by mouth once daily. 90 Tablet 3 04/05/2023 Active oxyCODONE (ROXICODONE) 2.5 mg as half tablet Take by mouth. 07/03/2023 Act carmela rosuvastatin (CRESTOR) 10 mg tabletIndications: Dyslipidemia Take 1 Tablet (10 mg) by mouth at bedtime. 90 Tablet 3 09/06/2023 Active glyBURIDE (MICRONASE; DIABETA) 2.5 mg tabletIndications: Diabetes mellitus without complication (HC) Take 1 Tablet (2.5 mg) by mouth once daily before a meal. 90 Tablet 3 09/06/2023 Active Active Problems Problem Noted Date Diagnosed Date Osteoarthritis of carpometacarpal joint of right thumb 06/06/2023 Depression, major, single episode, moderate 09/18 Degenerative cervical spinal stenosis 05/30/2019 S/P anterior cervical spinal fusion: C3-4 2018 Severe obesity (BMI 35.0-39.9) with comorbidity 11/22/2016 Localized, primary osteoarthritis 10/25/2015 Osteoarthritis of right knee 10/11/2015 Allergic rhinitis 10/04/2015 Osteoarthritis of finger 08/03/2014 Pyuria 07/23/2013 Pseudoarthrosis T12-L1 07/14/2013 DDD (degenerative disc disease), lumbar 07/14/20 13 Herniation of nucleus pulposus T9-10 07/14/2013 Sagital imbalance 07/14/2013 DJD (degenerative joint disease) 02/24/2012 Pseudoarthrosis of lumbar spine 04/04/2010 Degeneration of thoracic or thoracolumbar intervertebral disc 04/04/2010 Unspecified vitamin D deficiency 07/23/2007 Posterolateral fusion L1-2 u sing autologous bone--Iliac Crest Bone Graft and possible pedicle screw fixation and Infuse. 08/09/2006 Degeneration of lumbar or lumbosacral interverte bral disc 08/07/2006 Overview: L1-2 Backache, unspecified 04/12/2006 Other and unspecified hyperlipidemia 04/12/2006 DM w/o complication type II- diet controlled Conduction disorder of the heart 09/28/2003 Migraine 08/25/2003 Stress incontinence 10/16/2000 Unspecified essential hypertension Adrenal adenoma Overview: left, 11/24. 19mm. follow up at [place], 6 months Diverticulosis Resolved Problems Problem Noted Date Diagnosed Date Resolved Date Post-operative pain 07/23/2013 05/23/20 Painful Hardware 03/27/2013 04/05/2013 Other secondary hypertension, benign 04/12/2006 02/06/2008 hyperglycemia 04/12/2006 02/06/2008 Other complications due to u nspecified device, implant, and graft 03/01/2006 03/22/2013 Overview: Painful hardware L2-3 Immunizations Name Administration Dates Next Due AMB Influenza, IIV3 (Age >=3 years)(Flu Clinic Only) 06/13/2013,07/01/2011 COVID-19 vaccine (Moderna 100mcg/0.5mL) PF, MDV 10/31/2020,10/03/2020 Influenza, High-dose Inactivated 019,06/24/2016,06/23/2015,2013 Influenza, High-dose Quadriv alent Inactivated 06/25/2022,06/06/2020 Influenza, IIV3 (Age >=3 years) 06/29/20 12,06/11/2010,06/11/2009,2007,07/19/2007,06/29/2006,07/15/2005,1 Influenza, Inactivated AIIV4 (Age 65+ Years) Preserv Free 06/06/2023,06/03/2021 Influenza, Inactivated IIV3 (Age 65+ Years) Preserv Free 06/04/2018,06/12/2017 Pneumococcal Poly,23-Valent (Pneumovax) 06/28/2010,07/19/2006,01/06/2006 Pneumococcal conj 13-Valent (Prevnar 13) 06/23/2015 Td (Age >=7 Years) 01/06/2006 Td, Preservative Free (age > = 7 Years) 01/06/2006 Tdap 06/10/2013,06/10/2013 Zoster (Shingrix-RZV, recombinant) 09/09/2019, Zoster (Zostavax-ZVL, live) 06/27/2011, 9 Family History Medical History Relation Name Comments Heart Disease Brother 1 Arthritis Brother 2 Cancer Father lip ca Heart Disease Father Other Father lung disease Arthritis Mother Arthritis Sister Anesthesia Malignant Hyperthermia No Family History Cancer-breast No Family History Cancer-ovarian No Family History Relation Name Status Comments Brother 1 Brother 2 Father (Age 75) Mother (Age 80) Sister Social History Tobacco Use Types Packs/Day Years Used Date Smoking Tobacco: Never Smokeless Tobacco: Never Tobacco Cessation:Counseling Given: Yes Alcohol Use Standard Drinks/Week Comments Yes 1 (1 standard drink = 0.6 oz pur e alcohol) seldom but occ glass wine PHQ-2 Answer Date Recorded PHQ-2 TOTAL SCORE 3 04/05/2023 Social Connections Answer Date Recorded Frequency of Communication with Friends and Fami ly Not on file 02/01/2023 Financial Resource Strain Answer Date R ecorded Difficulty of Paying Living Expenses 3 01/31/2022 Difficulty of Paying Living Expenses Not on file 01/31/2022 Food Insecurity Answer Date Recorded Worried About Running Out of Food in the Last Ye ar 1 01/31/2022 Transportation Needs Answer Date Record ed Lack of Transportation (Medical) 1 01/31/2022 Housing Stability Answer Date Recorded Unable to Pay for Housing in the Last Year 1 01/31/2022 Sex and Gender Information Value Date Recorded Sex Assigned at Not on file Gender Identity Not on file Sexual Orientation Not on file Obstetrics History Para Term AB IAB SAB Ectopic Multiple Livin g Live Births 4 0 0 0 0 0 0 0 0 4 Date Outcome GA Total Labor Labor/2nd/3rd Weight Sex Delivery Anes PTL Marcelle A1 A5 Name Cl in Last Filed Vital Signs Vital Sign Reading Time Taken Comments Blood Pressure 131/86 09/06/2023 10:28 AM VICE PRESIDENT QUALITY Pulse 71 09/06/2023 10:28 AM VICE PRESIDENT QUALITY Temperature 36.7 ??C (98.1 ??F) 06/24/2020 9:17 AM CD T Respiratory Rate 16 06/01/2019 7:50 AM CDT Oxygen Saturation 96% 09/06/2023 10:28 AM VICE PRESIDENT QUALITY Inhaled Oxygen Concentration - - Weight 82 kg (180 lb 12.8 oz) 09/06/2023 10:28 A M VICE PRESIDENT QUALITY Height 163.8 cm (5' 4.5) 09/06/2023 10:28 AM CS T Body Mass Index 30.55 09/06/2023 10:28 AM VICE PRESIDENT QUALITY Plan of Treatment Upcoming Encounters Date Type Department Care Team (Late st Contact Info) Description 01/01/2024 10:20 AM CDT Office Visit [facility] [address] [address] Zena Yuan MD [address] [place] [address] Health Maintenance Due Date Last Done Comments Tetanus booster 06/10/2023 06/10/2013, 05/20, 01/06/2006, Additional history exists Medicare Wellness for age 65+ 04/05/2024, 03/30/2022, 02/26/2021, Additional history exists Depression screening for age 12+ 04/06/2024 04/06/2023, 04/05/2023, 03/30/2022, Additional history exists Influenza for age 65+ 05/19/2024 06/06/2023 , 06/25/2022, 06/03/2021, Additional history exists BMI (ht and wt on same day) for age 18+ 09/06/2024 09/06/2023, 04/05/2023, 03/30/2022, Additional history exists Tdap Completed 06/10/2013, 06/10/2013 Pneumococcal series for age 65+ Completed 06/23/2015, 06/28/2010, 07/19/2006, Additional history exists Zoster (shingles) series for age 50+ Completed 09/09/2019, 07/11/2019, 06/27/2011, Additional history exists DEXA/DXA scan for age 65+ Completed 2020, 07/04/2014, 07/20/2007 COVID-19 vaccine series Completed 08/08/20, 06/25/2022, 02/04/2022, Additional history exists Medical Devices Implanted Type Area Program/Music Director Device Identifier Shelf Expiration Date Model / Serial / Lot Beto Spinal Hex End 20in Titnm Cd - [id number] Implanted:Qty: 1 on 04/27/2010 at [facility] Spine Implants N/A: Spine SOFAMOR DANEK [id number]# / / Xstop Size 14 Mm Implanted:Qty: 1 on 04/12/2006 at [facility] Spine 200 141 / / [id number] Description:XSTOP SIZE 14MM [id number] Canclls Crushed 30cc [[id number]] Implanted:Qty: 1 on 08/09/2006 at [facility] Explanted:at [facility] (Quantity not on file) Spine Allosource 05/06/2011 27 [id number]# / [id number] / Kit Infuse Lg [id number] - [id number] Implanted:Qty: 1 on 08/09/2006 at [facility] Spine SOFAMOR DANEK [id number]# / / [id number] I Hook Narrow Blade Lg Std - [id number] Implanted:Qty: 4 on 04/27/2010 at [facility] N/A: Spine SOFAMOR DANEK [id number]# / / Cnnctr Ti 5.5 16mm Crosslink - [id number] Implanted:Qty: 1 on 04/27/2010 at [facility] N/A: Spine SOFAMOR DANEK [id number]# / / Cnnctr Ti 5.5 22mm Crosslink - [id number] Implanted:Qty: 1 on 04/27/2010 at [facility] N/A: Spine SOFAMOR DANEK [id number]# / / Screw Set Break-Off Hex Titnm - [id number] Implanted:Qty: 4 on 04/27/2010 at [facility] N/A: Spine SOFAMOR DANEK [id number]# / / Kit Infuse Lg [id number] - [id number] Implanted:Qty: 1 on 04/27/2010 at [facility] Spine SOFAMOR DANEK [id number]# / / [id number] A Screw 535x50 Standard Implanted:Qty: 1 on 04/27/2010 at [facility] Spine 835 [id number] / / Description:SCREW 535X50 STA NDARD Screw 4.5x50 Standard Implanted:Qty: 1 on 04/27/2010 at [facility] Spine 835 [id number] / / Description:SCREW 4.5X50 STA NDARD Screw 4.5x45 Standard Implanted:Qty: 1 on 04/27/2010 at [facility] Spine 835 59536 / / Description:SCREW 4.5X45 STA NDARD [id number] e Canclls Crushed 60cc [[id number]] Implanted:Qty: 1 on 04/27/2010 at [facility] Explanted:at [facility] (Quantity not on file) Spine Musculoskeletal Transplant 11/19/2012 [id number]# / [id number] / [id number] e Canclls Crushed 60cc [[id number]] Implanted:Qty: 1 on 04/27/2010 at [facility] Explanted:at [facility] (Quantity not on file) Spine Musculoskeletal Transplant 11/19/2012 [id number]# / [id number] / Set Screw 3dx - [id number] Implanted:Qty: 7 on 04/27/2010 at [facility] N/A: Spine MEDTR[employer]IC MEDICAL [id number]# / / Cnnctr [facility] 3dx Sm - [id number] Implanted:Qty: 5 on 04/27/2010 at [facility] N/A: Spine Medtronic [id number]# / / Cnnctr Ts 3dx Md - [id number] Implanted:Qty: 1 on 04/27/2010 at [facility] N/A: Spine Medtronic [id number]# / / Screw Thin Crest 5.5x45mm - [id number] Implanted:Qty: 2 on 04/27/2010 at [facility] N/A: Spine SOFAMOR DANEK [id number]# / / [id number] Canc 90cc Crushed Freeze Dried [[id number]][[id number]] Implanted:Qty: 1 on 07/16/2013 at [facility] Spine Musculoskeletal Transplant 12/18/2015 [id number]# / [id number] / [id number] [id number] Implanted:Qty: 1 on 07/16/2013 at [facility] Spine SPINAL GRAFT 06/02/2016 4 2275 / [id number] / Description:DBM [id number] GRAFT ON M [id number] Matrix 1x5cm Magnifuse Pcdbm [[id number]] Implanted:Qty: 1 on 07/16/2013 at [facility] Explanted:at [facility] (Quantity not on file) Spine Medtronic Spine/Ortho 05/29/2015 [id number]# / [id number] / Screw Lock 5.5mm Solera Break Off - [id number] Implanted:Qty: 6 on 07/16/2013 by Simón Hodge MD at [facility] N/A: Spine Medtronic Spine/Ortho [id number]# / / Screw Polyaxial 5.5x50 Co Cr Solera - [id number] Implanted:Qty: 2 on 07/16/2013 by Simón Hodge MD at [facility] N/A: Spine Medtronic Spine/Ortho [id number] 50# / / Screw Polyaxial 5.5x55 Co Cr Solera - [id number] Implanted:Qty: 1 on 07/16/2013 by Simón Hodge MD at [facility] N/A: Spine Medtronic Spine/Ortho [id number] 55# / / Screw Polyaxial 6.5x50 Co Cr Solera - [id number] Implanted:Qty: 1 on 07/16/2013 by Simón Hodge MD at [facility] N/A: Spine Medtronic Spine/Ortho [id number] 50# / / Screw Polyaxial 7.5x50 Co Cr Solera - [id number] Implanted:Qty: 1 on 07/16/2013 by Simón Hodge MD at [facility] N/A: Spine Medtronic Spine/Ortho [id number] 50# / / Screw Polyaxial 7.5x55 Co Cr Solera - [id number] Implanted:Qty: 1 on 07/16/2013 by Simón Hodge MD at [facility] N/A: Spine Medtronic Spine/Ortho [id number] 55# / / Beto 5.2b201qg Stra Titnm Alloy Solera - [id number] Implanted:Qty: 2 on 07/16/2013 by Simón Hodge MD at [facility] N/A: Spine Medtronic Spine/Ortho [id number]# / / Lauro Stephens Md Std - [id number] Implanted:Qty: 2 on 07/16/2013 by Simón Hodge MD at [facility] N/A: Spine Medtronic Spine/Ortho [id number]# / / Lauro Stephens Md Rmpd Thorac - [id number] Implanted:Qty: 8 on 07/16/2013 by Simón Hodge MD at [facility] N/A: Spine Medtronic Spine/Ortho [id number]# / / Screw Set Break-Off Hex Titnm - [id number] Implanted:Qty: 10 on 07/16/2013 by Simón Hodge MD at [facility] N/A: Spine Medtronic Spine/Ortho [id number]# / / Cnnctr Ti 5.5 16mm Xlink - [id number] Implanted:Qty: 1 on 07/16/2013 by Simón Hodge MD at [facility] N/A: Spine Medtronic Spine/Ortho [id number]# / / Cnnctr Ti 5.5 28mm Xlink - [id number] Implanted:Qty: 1 on 07/16/2013 by Simón Hodge MD at [facility] N/A: Spine Medtronic Spine/Ortho [id number]# / / [id number] 1cc Jenny Plus Paste Dbm Implanted:Qty: 1 on 05/30/2019 by Josh Casillas MD at [facility] Explanted:at [facility] (Quantity not on file) N/A: Spine Medtronic Spine/Ortho 11/21/2020 [id number]# / [id number] / [id number] 4-10mm 15cc Medtronic Canclls Chips Freeze Dried Implanted:Qty: 1 on 05/30/2019 by Josh Casillas MD at [facility] Explanted:at [facility] (Quantity not on file) N/A: Spine Medtronic Spine/Ortho 09/16/2023 [id number]# / [id number] / Cage 5mm X 16mm X 14mm Implanted:Qty: 1 on 05/30/2019 by Josh Casillas MD at [facility] N/A: Spine [id number] / / [id number] Screw Cerv Ant 4x13mm Atlantistranslational Fa Slf Drill - [id number] Implanted:Qty: 2 on 05/30/2019 by Josh Casillas MD at [facility] N/A: Spine Medtronic Spine/Ortho [id number]# / / Screw Cerv Ant 4x13mm Atlantistranslational Va Slf Drill - [id number] Implanted:Qty: 2 on 05/30/2019 by Josh Casillas MD at [facility] N/A: Spine Medtronic Spine/Ortho [id number]# / / Plate Cerv 1lvl 19mmvision Elite Ant - [id number] Implanted:Qty: 1 on 05/30/2019 by Josh Casillas MD at [facility] N/A: Spine Medtronic Spine/Ortho [id number]# / / Procedures Procedure Name Priority Date/Time Associated Diagnosis Comments XR DXA BONE DENSITY 1 SITE AXIAL AND 1 SITE PERIPHERAL Routine 03/03/2021 2:36 PM CDT Low bone density for age from Last 3 Months or Most Recently Relevant to Health Maintenance Results * (ABNORMAL) XR DXA BONE DENSITY 1 SITE AXIAL AND 1 SITE PERIPHERAL (03/03/2021 2:36 PM CDT) Anatomical Region Laterality Modality LUMBAR SPINE Other Impressions 03/09/2021 1:55 PM CDT Osteopenia. RECOMMENDATIONS: The National Osteoporosis Foundation recommends pharmacologic treatment for patients with T-scores of -2.5 or less, patients with prior history of fragility fractures, or patients with 10-year probability of greater than 3% at hips or greater than 20% of suffering major osteoporotic fractures. Recommend continued optimization of calcium and vitamin D intake through dietary means and/or supplementation and regular exercise. Repeat scan recommended in 3-5 years. Tashia Maldonado PA-C [facility] 03/09/2021 Narrative 03/09/2021 1:55 PM CDT XR DXA Bone Mineral Density (BMD) EXAM LOCATION: [address] [address] PATIENT NAME: Dipika Franco DATE OF : 1940 EXAM DATE: 03/03/2021 REQUESTING PROVIDER: Zena Yuan MD GENDER AT : female HEIGHT: 5' 5 (02/26/2021) WEIGHT: ??208 lb (02/26/2021) MENOPAUSAL STATUS: Postmenopausal RACE/ETHNICITY: White RISK FACTORS: White Race CURRENT MEDICATION FOR BONE LOSS: NONE INDICATION: Follow-up of existing osteopenia COMPARISON DATE(S): 2013 DXA scans are compared to prior studies for a patient only when the two (or more) studies were performed on the same scanner. It is not possible to compare data generated on one scanner to data from another because there are not standards in DXA equipment. This applies even if the two scanners are made by the same cardiovascular sonographer. PROCEDURE: Dual-energy x-ray absorptiometry performed with routine technique. Reporting is completed in the form of a T-score. The T-score represents the standard deviation from peak bone mass based on young healthy adult. A Z-score is used for diagnosis in premenopausal women, and for men under the age of 50. FINDINGS: RESULT FEMORAL NECK Left Total Femoral Neck BMD: 0.890 g/cm2 T-Score: - 1.1 Z-Score: + 0.5 RESULT TOTAL HIP Bilateral Total Hip BMD: 0.902 g/cm2 T-Score: - 0.8 Z-Score: + 0.6 Comparison to most recent scan ??in 2013: ??Decrease 3.3%. ?? RESULT FOREARM Left Forearm BMD: 0.799 g/cm2 T-Score: - 0.9 Z-Score: + 2.0 Comparison to most recent scan ??in 2013: ??Decrease 3.9%. ?? WHO criteria: Normal: T-score at or above -1 SD Osteopenia: T-score between -1.1 and -2.4 SD Osteoporosis: T-score at or below -2.5 SD FRAX RISK CALCULATION (USED FOR OSTEOPENIA ONLY): 10-year probability of major osteoporotic fracture: 11.0%. 10-year probability of hip fracture: 2.3%. Zena Yuan MD DEXA from Last 3 Months or Most Recently Relevant to Health Maintenance Advance Directives Documents on File Type Date Recorded Patient Cane Splicer Expl anation Healthcare Directive 04/06/2010 * Full Code (Latest Code Status on File) Date Activated Date Inactivated Comments 05/30/2019 9:35 AM 06/01/2019 6:52 PM Question Answer Comments Code Status Discussion: Per Existing Order * Full Code Date Activated Date Inactivated Comments 07/23/2013 4:44 PM 07/29/2013 3:45 PM * Full Code Date Activated Date Inactivated Comments 07/16/2013 8:54 PM 07/22/2013 3:42 PM * Full Code Date Activated Date Inactivated Comments 07/16/2013 7:10 AM 07/16/2013 8:54 PM * Full Code Date Activated Date Inactivated Comments 04/01/2013 11:59 AM 04/03/2013 2:53 PM Care Teams Academic Assistant Relationship Specialty Start Date End Date Zena Yuan MD [address] [place] [address] PCP - General Family Practice 09/30/13 [facility] 07/22/13 Dr. [facility] 01/28/11 Dr. Gilbert Knox 01/28/11
--- OUTSIDE RECORDS SUMMARY | 2023-12-23 17:06 | XMS_ITS | Encounter Summary ---
Author Name Unknown Organization [facility] Address [address] [place] [address] Care Team Providers Care Electrical Systems Design Engineer Name Role Phone Unavailable Primary Care Provider Unavailabl e Encounter Details Date Type Department Care Team (Late st Contact Info) Description 02/05/2004 Historical Ophthalmology [facility] Keith Zarate M.D. Social History Tobacco Use Types Packs/Day Years Used Date Smoking Tobacco: Never Assessed Sex and Gender Information Value Date Recorded Sex Assigned at Not on file Gender Identity Not on file Sexual Orientation Not on file documented as of this encounter Progress Notes * Keith Zarate M.D. - 02/05/2004 12:00 AM CDT Eye General CHIEF COMPLAINT Blurred vision;migraines HISTORY OF PRESENT ILLNESS Has has intermittent blurred vision (couple times a week) OS since May 2003. 07/17/04 saw (Orbital/Oculoplastics) for these symptoms and was referred to Dr. Dunn (Neuro-ophthalmology) who referred pt to Dr. Jansen (Neurology) who diagnosed migraines with lacrimation. It is unclear whether the visual symptoms were related to the migraines. Was initially placed on Corgard by Dr. Jansen but patient reports bradycardia with the Corgard in [place] and was placed on Norvasc by the physicians in [place]. She reports migraines have gone away with the Norvasc but episodes of visual changes have continued. When she was having the migrianes she could have the blurred vision but could have the blurred vision or migraines unrelated to one another. When it occurs it last half a day and is able to recognize faces but is unsure if would be able to read OS. No changes OD. Episodes of blurred vision last from a half hour to all day. Usually the blurred vision is 2-3 x weekly. Denies diplopia, floaters, and flashes of light. Just had a refraction in July of 2003. Today did not have the blurred vision OS until now that she is dilated she has the blurred vision. 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 Will get a refraction later today when dilating drops have worn off. This should correct the problem. Nope, it did not, still a little blurred with L eye compared to R. suggest we recheck in 2-3 months. Copy of what we did today as backup. DIAGNOSIS #1 Intermittent Blurred Vision OS CDM Reports - [facility] Id: [id number] Status: Fnl documented in this encounter Plan of Treatment Not on file documented as of this encounter Visit Diagnoses Not on filedocumented in this encounter
--- OUTSIDE RECORDS SUMMARY | 2023-12-23 17:06 | XMS_ITS | Clinical Summary ---
Author Name Unknown Organization [facility] Address [address] [place] [address] Care Team Providers Care Stumper Feller Name Role Phone Unavailable Primary Care Provider Unavailabl e Source Comments Patient records contain information from all sites at [facility]. For routine questions regarding patient records, call [phone] during business hours, M-F 8:00 AM - 5:00 PM Central Time. Record requests for emergency care only can be directed to [phone] at any time.[facility] Allergies Active Allergy Reactions Criticality Noted Date Comments Metformin Nausea Only 04/01/2013 Patient states I felt like I had morning sickness every morning Niacin Hives (Reselect Reaction) 07/17/2003 Sulfa (Sulfonamide Antibiotics) Hives (Reselect Reaction) 07/07/2003 Medications Medication Sig Dispensed Refills Start Date End Date Status traMADoL (ULTRAM) 50 mg tablet Take 1-2 tablets by mouth every 4 (four) hours as needed. 0 01/21/2017 Active tiZANidine (ZANAFLEX) 4 mg tablet 0 01/31/2022 Active simvastatin (ZOCOR) 20 mg tablet Take 1 tablet by mouth daily. 0 01/15/2009 Active sennosides-docusat e sodium (SENOKOT-S) 8.6-50 mg per tablet Take 1-4 tablets by mouth. 0 06/01/2019 Active rosuvastatin (CRESTOR) 10 mg tablet 0 02/23/2022 Active meloxicam (MOBIC) 7.5 mg tablet meloxicam 7.5 mg tablet TAKE 1 TABLET BY MOUTH TWICE DAILY NEEDED 0 Active meclizine (ANTIVERT) 25 mg tablet Take 25 mg by mouth. 0 03/16/2020 Active hydrocortisone valerate (WESTCORT) 0.2 % cream Apply topically. 0 06/08/2021 Active hydrocortisone (Hydrocortisone in Vanicream) 1 % cream cream Apply 1 application topically 2 (two) times a day as needed. 0 01/20/2017 Active hydroCHLOROthiazid e (HYDRODIURIL) 25 mg tablet 0 02/23/2022 Active glyBURIDE (DIABETA) 2.5 mg tablet 0 12/20/2021 Active fluticasone propionate (Flonase Allergy Relief) 50 mcg/actuation nasal spray Administer 1 puff into nostril(s) daily. 0 01/20/2017 Active FLUoxetine (PROzac) 20 mg capsule 0 12/20/2021 Active blood sugar diagnostic (glucose blood) strips Test 1 times per day. 0 03/19/2021 Active acetaminophen (TYLENOL) 500 mg tablet Take 2 tablets by mouth every 6 (six) hours as needed. 0 01/21/2017 Active celecoxib (CeleBREX) 100 mg capsule Take 1 capsule (100 mg total) by mouth 2 (two) times a day as needed for pain. 30 capsule 2 03/28/2022 Active Immunizations Name Administration Dates Next Due HZV (ZOSTAVAX) 06/27/2011 Influenza Split 07/02/2012,07/19/2008 PPSV23(Discontinued) 06/28/2010 influenza high dose (65 years or older) (PF) 12/2015 Social History Tobacco Use Types Packs/Day Years Used Date Smoking Tobacco: Never Nutrition Answer Date Recorded Nutrition: EVOO Fat Source Unknown 02/22 Nutrition: Servings of Fruits/Vegetables per Day Not on file 02/22/2022 Dental Answer Date Recorded Dental: Regular Dentist Unknown 02/23/20 22 Sex and Gender Information Value Date Recorded Sex Assigned at Not on file Gender Identity Not on file Sexual Orientation Not on file Last Filed Vital Signs Vital Sign Reading Time Taken Comments Blood Pressure 138/51 01/21/2017 10:17 AM CDT NIBP - Value from [employer]. Pulse 54 01/21/2017 7:39 AM CDT Value from [facility]. Temperature - - Respiratory Rate 14 01/21/2017 7:39 AM CDT Value from [facility]. Oxygen Saturation - - Inhaled Oxygen Concentration - - Weight 91.9 kg (202 lb 9.6 oz) 03/28/2022 10:18 AM CDT Height 165.1 cm (5' 5) 03/28/2022 10:1 8 AM CDT Body Mass Index 33.71 03/28/2022 10:18 AM CDT Plan of Treatment Health Maintenance Due Date Last Done Comments DTaP,Tdap,and Td Vaccines (2 - Td or Tdap) 06/10/2023 06/10/2013, 01/06/2006 Depression Screening (Annual PHQ-2) 09/18/2023 Fall Risk Screen (Annual) 09/18/2023 Pneumococcal vaccine (65+ years) Completed 06/23/2015, 06/28/2010, 07/19/2006, Additional history exists Zoster Vaccines Completed 09/09/2019, 06/19, 06/27/2011, Additional history exists Influenza Vaccine Completed 06/06/2023, , 06/03/2021, Additional history exists COVID-19 Vaccine Completed 08/08/2023, 04/2022, 02/04/2022, Additional history exists Medical Devices Implanted Type Area General Duty Nurse Device Identifier Shelf Expiration Date Model / Serial / Lot Tmj-Fossa Screw 2.0 X 8mm - Matos [id number] Implanted:Qty: 1 on 04/25/2008 [facility] [place] Prosthesis Left: Other/Legacy - See Implant Description TMJ Implants Description:Device Manufactu rer - [employer] Body Location - Left. Device Status Text - [facility] [id number]. Tmj-Custom Implant - Matos [id number] Implanted:Qty: 1 on 04/25/2008 [facility] [place] [facility] Prosthesis Left: Other/Legacy - See Implant Description Other/Legacy - See Implant Description Description:Device Manufactu rer - [facility]. Body Location - Left. Device Status Text - [facility] [id number]. Tmj-Fossa Screw 2.0 X 8mm - Matos [id number] Implanted:Qty: 1 on 04/25/2008 [facility] Prosthesis Left: Other/Legacy - See Implant Description TMJ Implants Description:Device Manufactu rer - [employer] Body Location - Left. Device Status Text - [facility] [id number]. Tmj-Custom Implant - Matos [id number] Implanted:Qty: 1 on 01/20/2017 [facility] Prosthesis Other/Legacy - See Implant Description TMJ Implants Description:Device Manufactu rer - [employer] Body Location - Other. Right. Device Status Text - [facility] [id number].
--- OUTSIDE RECORDS SUMMARY | 2023-12-23 17:06 | XMS_ITS | Referral Summary ---
Author Name Unknown Organization [facility] Address [address] [place] [address] Care Team Providers Care Internal Control Consultant Name Role Phone Unavailable Primary Care Provider Unavailabl e Source Comments Patient records contain information from all sites at [facility]. For routine questions regarding patient records, call [phone] during business hours, M-F 8:00 AM - 5:00 PM Central Time. Record requests for emergency care only can be directed to [phone] at any time.[facility] Allergies Active Allergy Reactions Criticality Noted Date [...] 03/28/2022 10:18 AM CDT Plan of Treatment Not on file Medical Devices Implanted Type Area Sample Weaver Device Identifier Shelf Expiration Date Model / Serial / Lot Tmj-Fossa Screw 2.0 X 8mm - Matos [id number] Implanted:Qty: 1 on 04/25/2008 [facility] Prosthesis Left: Other/Legacy - See Implant Description TMJ Implants Description:Device Manufactu rer - [employer] Body Location - Left. Device Status Text - [facility] [id number]. Tmj-Custom Implant - Matos [id number] Implanted:Qty: 1 [place] 04[place]25/[place] [facility]: Other/Legacy - See Implant Description Other/Legacy - See Implant Description Description:Device Manufactu rer - [facility]. Body Location - Left. Device Status Text - [facility] [id number]. Tmj-Fossa Screw 2.0 X 8mm - Matos [id number] Implanted:Qty: 1 on 04/25/[place] [facility] Left: Other/Legacy - See Implant Description TMJ Implants Description:Device Manufactu rer - [employer] Body Location - Left. Device Status Text - [facility] [id number]. Tmj-Custom Implant - Matos [id number] Implanted:Qty: 1 on 01/20/2017 [facility] [place] Other/Legacy - See Implant Description TMJ Implants Description:Device Manufactu rer - [employer] Body Location - Other. Right. Device Status Text - [facility] [id number].
--- OUTSIDE RECORDS SUMMARY | 2023-12-23 17:06 | XMS_ITS ---
Author Name Unknown Organization [facility] Address [address] [place] [address] Care Team Providers Care Director Of Collections Name Role Phone Unavailable Unavailable Unavailable Surgery Details Not on file Complications Check Surgery Details section. Procedure Estimated Blood Loss Check Surgery Details section. Procedure Findings Check Surgery Details section. Procedure Specimens Taken Check Surgery Details section.
== END 2023-12-23 18:30 | disposition home or self-care (01) ==
PROVIDERS: Emergency Provider Emergency Medicine; PCP Family Medicine
DX: M25.552 Pain in left hip (principal)
CPT/HCPCS: 73700; 99283; 99284; A9270

== ENCOUNTER 2024-01-02 23:52 | Inpatient (IN) | payer MEDICARE, OTHER, SELFPAY ==
--- NOTE | 2024-01-02 23:56 | ED.GENADULT ---
HPI - General Adult General Time Seen by Provider: 23:56 Date Seen: 01/02/24 Chief complaint: Unspecified Complaint, Adult Stated complaint: High Calcium-Got a MD call to come in Time Seen by Provider: 01/02/24 23:56 Source: patient, RN notes reviewed and old records reviewed Mode of arrival: ambulatory Limitations: no limitations History of Present Illness HPI narrative: 83-year-old female who comes in today for hypercalcemia. Patient sent in tonight with reported calcium level of 13.8 from clinic today. Patient returned home from [place] last week in for the last couple of days has had increased weakness and feeling crummy. She reports decreased appetite, approximately 50 lb weight loss since last fall. Denies cough, shortness of breath, abdominal pain or distension, blood in the stools, hematuria. Denies history of smoking. Prior hysterectomy. No chest pain or palpitations. Related Data Home Medications Medication Instructions Recorded Confirmed hydrochlorothiazide 25 mg tablet 25 mg PO DAILY 06/17/22 12/25/23 rosuvastatin 10 mg tablet 10 mg PO HS 06/17/22 12/25/23 glyburide 2.5 mg tablet 2.5 mg PO BID 06/15/23 12/25/23 oxycodone-acetaminophen 5 mg-325 1 - 2 tab PO QHS PRN pain 12/25/23 12/25/23 mg tablet Previous Rx's Medication Instructions Recorded acetaminophen 500 mg capsule 500 - 1,000 mg (1 - 2 x 500 mg) PO 06/15/23 Q6H PRN pain #100 caps ondansetron 4 mg disintegrating 4 mg PO Q8H PRN nausea and 09/02/23 tablet vomiting #10 tabs Allergies Allergy/AdvReac Type Severity Reaction Status Date / Time metformin Allergy Verified 12/25/23 09:51 morphine Allergy Verified 12/25/23 09:51 niacin Allergy Verified 12/25/23 09:51 Sulfa (Sulfonamide Allergy Verified 12/25/23 09:51 Antibiotics) [facility] Medical History (Updated 01/03/24 @ 00:42 by Keith Laureano MD) Vitamin D deficiency (01/19/10) ?E55.9 - Vitamin D deficiency, unspecified (ICD-10) Parotitis (06/02/11) ?K11.20 - Sialoadenitis, unspecified (ICD-10) Adenoma of left adrenal gland (01/19/10) ?D35.02 - Benign neoplasm of left adrenal gland (ICD-10) Diverticulosis (01/19/10) ?K57.90 - Diverticulosis of intestine, part unspecified, without perforation or abscess without bleeding (ICD-10) Cystocele (01/19/10) Hypertension (01/19/10) ?I10 - Essential (primary) hypertension (ICD-10) Hyperlipidemia (01/19/10) ?E78.5 - Hyperlipidemia, unspecified (ICD-10) Diabetes (01/19/10) ?E11.9 - Type 2 diabetes mellitus without complications (ICD-10) Urinary incontinence (01/19/10) ?R32 - Unspecified urinary incontinence (ICD-10) Arthritis (01/19/10) ?M19.90 - Unspecified osteoarthritis, unspecified site (ICD-10) Surgical History 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) ?Z96.651 - Presence of right artificial knee joint (ICD-10) History of hip surgery (08/29/23) ?Z98.890 - Other specified postprocedural states (ICD-10) H/O oophorectomy (01/19/10) History of hysterectomy (01/19/10) ?Z90.710 - Acquired absence of both cervix and uterus (ICD-10) H/O foot surgery (01/19/10) ?Z98.890 - Other specified postprocedural states (ICD-10) Previous back surgery (01/19/10) ?Z98.890 - Other specified postprocedural states (ICD-10) History of facial surgery (01/19/10) ?Z98.890 - Other specified postprocedural states (ICD-10) Hx of cholecystectomy (01/19/10) ?Z90.49 - Acquired absence of other specified parts of digestive tract (ICD-10) Hx of appendectomy (01/19/10) ?Z90.49 - Acquired absence of other specified parts of digestive tract (ICD-10) Social History (Reviewed 12/25/23 @ 09:54 by Sola Bailey ~ COMMUNITY RESOURCE OFFICER, COMMUNITY RESOURCE OFFICER) What is your current living situation?: I presently have a place to live In the past 12 months, utilities in danger of being shut off: no In past 12 months, lack of transportation kept you from medical appts, meetings, work, or getting things needed for daily living: no In the past 12 mos, have been you worried that your food would run out before you had money to buy more?: never true In the past 12 mos, the food you bought just didn't last and you didn't have money to buy more?: never true Smoking Status: Never smoker How often do you have a drink containing alcohol: never How often do you have six or more drinks on one occasion: Never AUDIT-C Alcohol total score: 0 Non-prescribed substance use: denies use Caffeine: No How often does anyone, including family, friends and others, physically hurt you: never How often does anyone, including family, friends and others, insult or talk down to you: never How often does anyone, including family, friends and others, threaten you with harm: never How often does anyone, including family, friends and others, scream or curse at you: never service: No Exam Narrative: Exam Narrative: General: Well-developed and well-nourished, no acute distress Head: Atraumatic and normocephalic Eyes: Pupils are equal reactive, extraocular motions intact, conjunctiva clear ENT: External nose and ears are normal, posterior pharynx without erythema or exudate Neck: No midline cervical tenderness, full spontaneous range of motion the neck, trachea midline, no adenopathy Heart: Regular rate and rhythm no murmurs or thrills Lungs: Clear to auscultation bilaterally without wheezes or crackles Abdomen: Soft, nontender, nondistended with active bowel sounds Musculoskeletal: No tenderness, deformity, or edema Neurologic: Awake, alert, and oriented x3, no gross focal neurologic deficits, cranial nerves intact as tested Psych: Mood and affect are appropriate Skin: No rashes Const: Vital Signs, click to edit/add: Vital Signs - 24 hr 01/03/24 00:00 01/03/24 00:13 01/03/24 01:07 Temperature 97.8 F Pulse Rate Pulse Rate [Pulse Oximeter] 75 58 L Respiratory Rate 18 16 Blood Pressure Blood Pressure [Le ft Upper Arm] 141/72 H 125/58 L Pulse Oximetry 98 97 96 Oxygen Delivery Me thod Room Air Room Air 01/03/24 01:31 Temperature Pulse Rate 57 L Pulse Rate [Pulse Oximeter] Respiratory Rate 16 Blood Pressure 130/52 L Blood Pressure [Le ft Upper Arm] Pulse Oximetry 96 Oxygen Delivery Mn thod Course Course ED Course: Patient seen examined, prior records are reviewed. Patient presents today with hypercalcemia and is symptomatic with generalized weakness but no bradycardia, EKG is pending. Also 50 lb weight loss over the last 6 months. Concern for possible malignancy given history of hypercalcemia and weight loss. I did review prior CT scan from December 22 which was a hip CT done for pain, this was noted to demonstrate small volume ascites as well as prominent left pelvic sidewall and inguinal lymph nodes. Given enlarged lymph nodes and noted epigastric lump, likely intra-abdominal malignancy or metastases. 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 CT scan of the chest, abdomen, pelvis will be ordered. I did consider deferring this until inpatient team can evaluate but as patient will be in the emergency department and will likely need admission, will go forward with imaging to make sure there is nothing immediately surgical or interventional that needs to be done. IV fluids are ordered to start be treating presumptive hypercalcemia. Reevaluation(s) Time of Reevaluation #1: 00:40 Reevaluation #1: Labs ordered and independently interpreted by me with mild anemia but otherwise normal cbc, mild hyponatremia and slightly low potassium which will be replaced orally as patient may need Lasix to help clear calcium. Phosphorus is 4, hepatic panel normal, calcium and magnesium are still pending but ionized calcium elevated at 1.64 Time of Reevaluation #2: 00:52 Reevaluation #2: verbal report from lab of calcium of 12.8, magnesium 0.9. Magnesium will be replaced intravenously. Time of Reevaluation #3: 01:13 Reevaluation #3: CT scan of the chest independently interpreted by me does not demonstrate any acute intrathoracic findings. CT scan of the abdomen and pelvis independently interpreted by me with trace ascites, splenomegaly, abnormal fluid collection in the pelvis. Additional Reevaluation(s): 1:25 a.m. care discussed with hospitalist Dr. Davis for admission. 2: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 Vital Signs Vital signs: Initial Vital Signs Temperature 97.8 F 01/03/24 00:00 Temperature Source Temporal Artery Scan 01/03/24 00:00 Pulse Rate 75 01/03/24 00:00 Respiratory Rate 18 01/03/24 00:00 Blood Pressure 141/72 H 01/03/24 00:00 Blood Pressure Mean 95 01/03/24 00:00 Blood Pressure Position Sitting 01/03/24 00:00 Pulse Oximetry 98 01/03/24 00:00 Oxygen Delivery Method Room Air 01/03/24 00:00 Vital Signs Temperature 97.8 F 01/03/24 00:00 Pulse Rate 75 01/03/24 00:00 Respiratory Rate 18 01/03/24 00:00 Blood Pressure 141/72 H 01/03/24 00:00 Pulse Oximetry 98 01/03/24 00:00 Oxygen Delivery Method Room Air 01/03/24 00:00 Temperature 97.8 F 01/03/24 00:00 Pulse Rate 57 L 01/03/24 01:31 Respiratory Rate 16 01/03/24 01:31 Blood Pressure 130/52 L 01/03/24 01:31 Pulse Oximetry 96 01/03/24 01:31 Oxygen Delivery Method Room Air 01/03/24 01:07 Medications Administered Medications: Generic Name Dose Route Start Last Admin Trade Name Freq PRN Reason Stop Dose Admin Magnesium Sulfate 2 gm in 50 mls @ 25 mls/hr 01/03/24 00:53 01/03/24 00:57 Magnesium Iv IVPB 01/03/24 02:52 25 mls/hr ONCE ONE Administration Potassium Bicarbonate 25 meq 01/03/24 00:42 01/03/24 00:57 Potassium Bicarb 25 Meq Effervescent Tab PO 01/03/24 00:43 25 meq ONCE ONE Administration Discontinued Medications Generic Name Dose Route Start Last Admin Trade Name Freq PRN Reason Stop Dose Admin Sodium Chloride 1,000 mls @ 1,000 mls/hr 01/02/24 23:45 01/03/24 00:07 0.9 % Sodium Chloride 1000 Ml IV 01/03/24 00:44 1,000 mls/hr .Q1H AP Administration Medical Decision Making Lab Data Labs: Lab Results 01/03/24 Range/Units 00:00 WBC 5.00 (4.50-11.00) K/uL RBC 3.87 L (4.00-5.20) m/uL Hgb 11.2 L (12.0-16.0) gm/dL Hct 34.1 (33.0-51.0) % MCV 88 (80-100) fL MCH 29 (26-34) pg MCHC 33 (32-36) gm/dL RDW Coeff of Will 12.2 (11.5-15.5) % Plt Count 184 (140-440) K/uL Neut % (Auto) 61.4 (42.0-72.0) % Lymph % (Auto) 23.2 (20-44) % Hettinger % (Auto) 12.8 H (0.0-11.0) % Eos % (Auto) 1.8 (0.0-7.0) % Baso % (Auto) 0.4 (0.0-3.0) % Neut # (Auto) 3.07 (1.7-7.0) K/uL Lymph # (Auto) 1.16 (0.90-2.90) K/uL Hettinger # (Auto) 0.60 (0.00-0.90) K/UL Eos # (Auto) 0.09 (0.00-0.50) K/uL Baso # (Auto) 0.02 (0.00-0.30) K/uL Abs Immat Gran (auto) 0.02 (0.00-0.30) K/uL Imm/Tot Granulo (auto) 0.4 % Sodium 133 L (135-149) mmol/L Potassium 3.4 L (3.6-5.1) mmol/L Chloride 97 (96-114) mmol/L Carbon Dioxide 32 (20-32) mmol/L Anion Gap 4 L (7-15) mEq/L BUN 27 (7-30) mg/dL Creatinine 1.2 (0.5-1.5) mg/dL Estimated Creat Clear 30.14 Estimated GFR 45 ml/min Glucose 140 H (60-115) mg/dL Calcium 12.8 H* (8.4-10.6) mg/dL Ionized Calcium Zonia 1.64 H (1.11-1.30) mmol/L Phosphorus 4.0 (2.5-4.5) mg/dL Magnesium 0.9 L* (1.5-2.6) mg/dL Total Bilirubin 0.5 (0.1-1.5) mg/dL Direct Bilirubin 0.2 (0.0-0.5) mg/dL AST 25 (12-35) U/L ALT 12 (4-35) U/L Alkaline Phosphatase 76 (40-150) U/L Total Protein 6.8 (6.0-8.3) g/dL Albumin 4.1 (3.3-5.0) g/dL ECG Data Attestation: I personally reviewed and interpreted this ECG as follows: Prior ECG tracings: available for review Interpretation: Performed at 12:17 a.m. independently interpreted by me with sinus bradycardia rate 58, incomplete right bundle-branch block, QTC 386, NM 146, Compared to prior of June 2023, rate has decreased, no other acute changes Discharge Plan Discharge Clinical Impression: Unintentional weight loss, Unexplained night sweats, Hypokalemia, Hypercalcemia Patient Disposition: Admitted As Observation
[2024-01-03] VITALS (16 sets, daily range): BP systolic 122–150; BP diastolic 50–72; PULSE 56–75; RESP 14–18; TEMP 36.1–36.6; O2SAT 93–98; BMI 26.6; BMI 28.7
[2024-01-03] MEDS: 0.9 % SODIUM CHLORIDE 1000 ml 1,000 ML IV (00:07)
[2024-01-03 00:09] LABS: Ionized Calcium* 1.64 mmol/L (1.11-1.30)
--- NOTE | 2024-01-03 00:14 | CT_ITS ---
[facility] Facility[facility] Patient ID:?[id number] Site Patient ID:?[id number]. Site :?[id number] Study:?CT-Chest/Abd/Pelvis W/ISVOUE 370 76CC-01/03/2024 1:14:38 AM Ordering Physician:LORETTA Final Report: INDICATION: HyperCa, wt loss, abnl pelvic lymph nodes on hip CT 12/22 TECHNIQUE: CT chest, abdomen and pelvis acquired with 76 mL of isovue 370 IV contrast. COMPARISON: None. FINDINGS: CHEST: Cardiovascular structures: Heart size is normal. Thoracic aorta and main pulmonary artery are normal in caliber. Mediastinum and gail: Mediastinal adenopathy is noted with subcarinal lymph node measuring 4.2 x 3 5 centimeters in diameter. Lungs and pleura: Lungs and pleural spaces are clear. No suspicious nodules, infiltrates, or effusions. Chest wall and axilla: No mass or adenopathy. Bones: No suspicious bone lesions. Thoracic spine fixation hardware. Otherwise, unremarkable for age. ABDOMEN AND PELVIS: Liver: Unremarkable. Gallbladder and bile ducts: Gallbladder is absent. No intrahepatic or extrahepatic biliary ductal dilation. Pancreas: Unremarkable. Spleen: Probable left superior splenic hemangioma. Indeterminate hypodensity at the inferior spleen. Adrenal glands: Nodular thickening of the left adrenal gland, non-specific. Right adrenal gland is unremarkable. Kidneys: Unremarkable. GI tract: Unremarkable. Vascular structures: Unremarkable. Lymph nodes: Diffuse abdominal and pelvic adenopathy. . Miscellaneous: Omental carcinomatosis. Peritoneal nodularity, for example in the left pelvis measuring 28 mm (2/221). Small to moderate fluid in the pelvis. Mild diffuse peritoneal thickening/enhancement in the pelvis. Pelvic Organs: Uterus is absent. Mild bladder wall thickening may be related to incomplete distention. Bones: Fixation hardware in the spine. Spacers noted in the disc spaces in the lumbar spine.. IMPRESSION: 1. Diffuse adenopathy likely metastatic. 2. Omental carcinomatosis. 3. Peritoneal nodularity with thickening and mild enhancement. 4. Mild to moderate pelvic ascites. Please note that all CT scans at this facility use dose modulation, iterative reconstruction, and/or weight-based dosing when appropriate to reduce radiation dose to as low as reasonably achievable. Dictated by Dionicio Turner MD @ 01/03/2024 2:08:49 AM Signed by:?Dionicio Turner MD @01/03/2024 2:08:49 AM (Electronic Signature)
[2024-01-03 00:17] LABS: Basophils Absolute Auto 0.02 K/uL (0.00-0.30); Basophils Percent Auto 0.4 % (0.0-3.0); Eosinophils Absolute Auto 0.09 K/uL (0.00-0.50); Eosinophils Percent Auto 1.8 % (0.0-7.0); Hematocrit 34.1 % (33.0-51.0); Hemoglobin* 11.2 gm/dL (12.0-16.0); Immature Granulocytes Abs Auto 0.02 K/uL (0.00-0.30); Immature Granulocytes Pct Auto 0.4 %; Lymphocytes Absolute Auto 1.16 K/uL (0.90-2.90); Lymphocytes Percent Auto 23.2 % (20-44); Mean Corpuscular HGB Conc 33 gm/dL (32-36); Mean Corpuscular Hemoglobin 29 pg (26-34); Mean Corpuscular Volume 88 fL (80-100); Monocytes Percent Auto 12.8 % (0.0-11.0); Neutrophils Absolute Auto 3.07 K/uL (1.7-7.0); Neutrophils Percent Auto 61.4 % (42.0-72.0); Platelet Count* 184 K/uL (140-440); RDW Coefficient of Variation % 12.2 % (11.5-15.5); Red Blood Count 3.87 m/uL (4.00-5.20); Slide Review Reflex No
[2024-01-03 00:28] LABS: Albumin* 4.1 g/dL (3.3-5.0); Chloride* 97 mmol/L (96-114)
--- OUTSIDE RECORDS SUMMARY | 2024-01-03 00:28 | XMS_ITS | Clinical Summary ---
Author Name Unknown Organization [facility] Address [address] [place] [address] Care Team Providers Care [employer] Name Role Phone Unavailable Primary Care Provider Unavailabl e Source Comments Patient records contain information from all sites at [facility]. For routine questions regarding patient records, call [phone] during business hours, M-F 8:00 AM - 5:00 PM Central Time. Record requests for emergency care only can be directed to [phone] at any time.[facility] Allergies Active Allergy Reactions Criticality Noted Date Comments Metformin Nausea Only 04/01/2013 Patient states I felt like I had morning sickness every morning Niacin Hives (Reselect Reaction) 07/17/2003 Sulfa (Sulfonamide Antibiotics) Hives (Reselect Reaction) 07/07/2003 Medications Medication Sig Dispensed Refills Start Date End Date Status traMADoL (ULTRAM) 50 mg tablet Take 1-2 tablets by mouth every 4 (four) hours as needed. 01/21/2017 Active tiZANidine (ZANAFLEX) 4 mg tablet 01/31/2022 Active simvastatin (ZOCOR) 20 mg tablet Take 1 tablet by mouth daily. 01/15/2009 Active sennosides-docusat e sodium (SENOKOT-S) 8.6-50 mg per tablet Take 1-4 tablets by mouth. 06/01/2019 Active rosuvastatin (CRESTOR) 10 mg tablet 02/23/2022 Active meloxicam (MOBIC) 7.5 mg tablet meloxicam 7.5 mg tablet TAKE 1 TABLET BY MOUTH TWICE DAILY NEEDED Active meclizine (ANTIVERT) 25 mg tablet Take 25 mg by mouth. 03/16/2020 Active hydrocortisone valerate (WESTCORT) 0.2 % cream Apply topically. 06/08/2021 Active hydrocortisone (Hydrocortisone in Vanicream) 1 % cream cream Apply 1 application topically 2 (two) times a day as needed. 01/20/2017 Active hydroCHLOROthiazid e (HYDRODIURIL) 25 mg tablet 02/23/2022 Active glyBURIDE (DIABETA) 2.5 mg tablet 12/20/2021 Active fluticasone propionate (Flonase Allergy Relief) 50 mcg/actuation nasal spray Administer 1 puff into nostril(s) daily. 01/20/2017 Active FLUoxetine (PROzac) 20 mg capsule 12/20/2021 Active blood sugar diagnostic (glucose blood) strips Test 1 times per day. 03/19/2021 Active acetaminophen (TYLENOL) 500 mg tablet Take 2 tablets by mouth every 6 (six) hours as needed. 01/21/2017 Active celecoxib (CeleBREX) 100 mg capsule [...] history exists Medical Devices Implanted Type Area Reclaimer Device Identifier Shelf Expiration Date Model / Serial / Lot Tmj-Fossa Screw 2.0 X 8mm - Matos [id number] Implanted:Qty: 1 on 04/25/2008 [facility] [place] Prosthesis Left: Other/Legacy - See Implant Description TMJ Implants Description:Device Manufactu rer - [employer] Body Location - Left. Device Status Text - [id number]. Tmj-Custom Implant - Matos [id number] Implanted:Qty: 1 on 04/25/2008 [facility] [place] Prosthesis Left: Other/Legacy - See Implant Description Other/Legacy - See Implant Description Description:Device Manufactu rer - [facility]. Body Location - Left. Device Status Text - [id number]. Tmj-Fossa Screw 2.0 X 8mm - Matos [id number] Implanted:Qty: 1 on 04/25/2008 [facility] [place] Prosthesis Left: Other/Legacy - See Implant Description TMJ Implants Description:Device Manufactu rer - [employer] Body Location - Left. Device Status Text - [id number]. Tmj-Custom Implant - Matos [id number] Implanted:Qty: 1 on 01/20/2017 Mis Prosthesis Other/Legacy - See Implant Description TMJ Implants Description:Device Manufactu rer - [employer] Body Location - Other. Right. Device Status Text - [id number].
--- OUTSIDE RECORDS SUMMARY | 2024-01-03 00:28 | XMS_ITS | Encounter Summary ---
Author Name Unknown Organization [facility] Address [address] [place] [address] Care Team Providers Care [employer] Name Role Phone Unavailable Primary Care Provider [...] disease. Neck X-ray negative. CT scan at [facility] negative. No neurologic evaluation. + photophobia with severe h/a, no change in vision/fortification spectra; migraine h/a 20 years ago on OCP, resolved off OCP. No smoking. No conj injection noted with increased tearing. 1 episode left mid-facial pain last year dx'd clinically as max sinusitis, resolved with oral Ab tx.No significant incr pain on EOM. Dr. Ramon Molina of [place] follows Mrs. Marcus from the ophthalmic viewpoint and Dr. [facility] from the medical viewpoint. IMPRESSION / REPORT [...] cavernous sinus. Mrs. Mae is traveling to [place] 07/29 and at her request we will try to coordinate her evaluation here priorto departure. If this is not possible, Mrs. Marcus indicates she has been seen at [facility] and would be happyto return there for completion of her evaluation. I have asked her to call me after she has her CT if done here, and have taken the liberty of giving Mrs. Mae the name of Dr. Dustin Brennan as an outstanding specialist in terms of her ongoing evaluation if necessary at [facility]. Letter dict to Miladys Pittman, and Mika. corresp: August 04, 2003 Javier Molina M.D. [facility] [address] [address] RE: Mrs. Dipika Franco #: [phone] : [phone] [address] Molina: Thank you very much for referring Mrs. Franco for orbital and oculoplastic evaluation. Enclosed, please find a copy of her consult note which further outlines her exam findings here. With your permission, Mrs. Franco's further evaluation will be coordinated through [facility] and [facility], in view of her upcoming travels to [place] this winter. We will certainly keep you posted concerning her subsequent course here. I have taken the liberty of forwarding a copy of this note to her meat stuffer, Dr. Armand Rendon, as requested by Mrs. Franco. Thank you, again, for allowing me to share in the care of this most pleasant patient. Best wishes. Sincerely, Mikey Murillo:sr enclosure - cdm report of 07/17/03 cc: Dr. Armand Rendon, [place], [place] Dr. Dustin Brennan, [facility] DIAGNOSIS #1 left supraorbital/periorbital/hemicranial pain #2 intermittent tearing OS with patent lacrimal outflow system. #3 left rhinorrhea CDM Reports - EYEGEN Id: [id number] Status: Fnl documented in this encounter Plan of Treatment Not on file documented as of this encounter Visit Diagnoses Not on filedocumented in this encounter
--- OUTSIDE RECORDS SUMMARY | 2024-01-03 00:28 | XMS_ITS | Clinical Summary ---
Author Name Unknown Organization [facility] Address [place], [place] [address] Care Team Providers Care Fill Manager Name Role Phone [facility] Unavailable [phone] Zena Yuan MD Primary Care Provider Allergies Active Allergy Reactions Criticality Noted Date Comments Metformin Nausea Only 04/01/2013 Patient states I felt like I had morning sickness every morning Niacin Hives 03/01/2006 Sulfa (Sulfonamide Antibiotics) Hives 03/01/2006 Medications Medication Sig Dispensed Refills Start Date End Date Status acetaminophen (TYLENOL) 325 mg tabletIndications :S/P cervical spinal fusion Take 2 tablets by mouth every 4 hours if needed. Max acetaminophen dose: 4000mg in 24 hrs. 120 tablet 06/01/2019 Active blood-glucose meterIndications: Diabetes mellitus without complication (HC) As directed. Dispense meter, test strips, lancets covered by pt ins. E11.9 NIDDM type II - Test 1 time/day 1 Device 03/19/2021 Active lancets (Accu-Chek Fastclix Lancet Drum)Indications: Diabetes mellitus without complication (HC) As directed once daily. Dispense item covered by pt ins. E11.9 NIDDM type II - Test 1 time/day 100 Each 3 03/30/2022 Active blood sugar diagnostic (Blood Glucose Test) stripIndications: Diabetes mellitus without complication (HC) Test 1 times per day. 100 Each 1 10/05/2022 Active hydroCHLOROthiazi de (HCTZ) 25 mg tabletIndications :Essential hypertension Take 1 Tablet (25 mg) by mouth once daily. 90 Tablet 3 04/05/2023 Active rosuvastatin (CRESTOR) 10 mg tabletIndications :Dyslipidemia Take 1 Tablet (10 mg) by mouth at bedtime. 90 Tablet 3 09/06/2023 Active sennosides-docusa te, 8.6-50 mg, (SENOKOT S) 8.6-50 mg tabletIndications :S/P cervical spinal fusion Take 1-4 tablets by mouth 2 times daily. 120 tablet 06/01/2019 4 Discontinu ed(*Med complete/R egimen complete/L evel of care change) oxyCODONE (ROXICODONE) 2.5 mg as half tablet Take by mouth. 07/03/2023 01/01/20 2 4 Discontinu ed(*Med complete/R egimen complete/L evel of care change) glyBURIDE (MICRONASE; DIABETA) 2.5 mg tabletIndications :Diabetes mellitus without complication (HC) Take 1 Tablet (2.5 mg) by mouth once daily before a meal. 90 Tablet 3 09/06/2023 4 Discontinu ed(*Med complete/R egimen complete/L evel of care change) Active Problems Problem Noted Date Diagnosed Date Osteoarthritis of carpometacarpal joint of right thumb 06/06/2023 Depression, major, single episode, moderate 09/18 Degenerative cervical spinal stenosis 05/30/2019 S/P anterior cervical spinal fusion: C3-4 2018 Localized, primary osteoarthritis 10/25/2015 Osteoarthritis of right [...] Overview: left, 11/24. 19mm. follow up at [place], 6 months Diverticulosis Resolved Problems Problem Noted Date Diagnosed Date Resolved Date Severe obesity (BMI 35.0-39. 9) with comorbidity 11/22/2016 01/01/2024 Post-operative pain 07/23/2013 05/23/20 Painful Hardware 03/27/2013 04/05/2013 Other secondary hypertension, benign 04/12/2006 02/06/2008 hyperglycemia 04/12/2006 02/06/2008 Other complications due to u nspecified device, implant, and graft 03/01/2006 03/22/2013 Overview: Painful hardware L2-3 Encounters Date Type Department Care Team Description 01/02/2024 11:30 AM CDT Ancillary Procedure [address] [address] Arrived 01/02/2024 11:00 AM CDT Ancillary Procedure [facility] [address] [place] [address] Arrived 01/02/2024 9:50 AM CDT Orders Only [address] [address] Lab, [place] [facility] 01/02/[address] [address] Nona Vázquez DO Abnormal Lab Results 01/02/2024 E-Consult [address] [place] [address] Rodney Irizarry MBBS 01/02/2024 Orders Only [address] [address] Jen Nguyen DO <No scans attached> 01/01/2024 10:20 AM CDT Office Visit [facility] [address] [facility] [address] Zena Yuan MD Diabetes 01/01/2024 Travel 12/23/2023 Orders Only [facility] Scanner 1 scan: (1-Ord) [facility], NONCONTRAST CT SCAN OF PELVIS W/RE-FORMATTED IMAGES OBTAINED, 12/23/2023 from Last 3 Months Immunizations Name Administration Dates Next Due AMB [...] of Communication with Friends and Fami ly 4 01/01/2024 Financial Resource Strain Answer Date R ecorded Difficulty of Paying Living Expenses 3 01/01/2024 Difficulty of Paying Living Expenses Not on file 01/01/2024 Food Insecurity Answer Date Recorded Worried About Running Out of Food in the Last Ye ar 1 01/01/2024 Transportation Needs Answer Date Record ed Lack of Transportation (Medical) 1 01/01/2024 Housing Stability Answer Date Recorded Unable to Pay for Housing in the Last Year 1 01/01/2024 Sex and Gender Information Value Date Recorded [...] Sign Reading Time Taken Comments Blood Pressure 115/73 01/01/2024 10:26 AM CDT Pulse 82 01/01/2024 10:26 AM CDT Temperature 36.7 ??C (98.1 ??F) 06/24/2020 9:17 AM CD T Respiratory Rate 16 06/01/2019 7:50 AM CDT Oxygen Saturation 98% 01/01/2024 10:26 AM CDT Inhaled Oxygen Concentration - - Weight 71.3 kg (157 lb 3.2 oz) 01/01/2024 10:26 AM CDT Height 163.8 cm (5' 4.5) 09/06/2023 10:28 AM CS T Body Mass Index 26.57 09/06/2023 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 Plan of Treatment Health Maintenance Due Date [...] history exists Medical Devices Implanted Type Area Coordinator Integrated Marketing Device Identifier Shelf Expiration Date Model / Serial / Lot Beto Spinal Hex End 20in [facility] Cd - [id number] Implanted:Qty: 1 on 04/27/2010 at [facility] Spine Implants N/A: Spine SOFAMOR DANEK [id number]# / / Xstop Size 14 Mm Implanted:Qty: 1 on 04/12/2006 at [facility] Spine 200 141 / / [id number] Description:XSTOP SIZE 14MM [id number] Canclls Crushed 30cc [[id number]] Implanted:Qty: 1 on 08/09/2006 at [facility] Explanted:at [facility] (Quantity not on file) Spine Allosource 05/06/2011 27 [id number]# / [id number] / Kit Infuse Lg [id number] - [id number] Implanted:Qty: 1 on 08/09/2006 at [facility] Spine SOFAMOR DANEK [id number]# / / [id number] I Hook Narrow Blade Lg Std - [id number] Implanted:Qty: 4 on 04/27/2010 at [facility] N/A: Spine SOFAMOR DANEK [id number]# / / Cnnctr Ti 5.5 16mm Crosslink - [id number] Implanted:Qty: 1 on 04/27/2010 at [facility] N/A: Spine SOFAMOR DANEK [id number]# / / Cnnctr Ti 5.5 22mm Crosslink - [id number] Implanted:Qty: 1 on 04/27/2010 at [facility] N/A: Spine SOFAMOR DANEK [id number]# / / Screw Set Break-Off Hex Titnm - [id number] Implanted:Qty: 4 on 04/27/2010 at [facility] N/A: Spine SOFAMOR DANEK [id number]# / / Kit Infuse Lg [id number] - [id number] Implanted:Qty: 1 on 04/27/2010 at [facility] Spine SOFAMOR DANEK [id number]# / / [id number] A Screw 535x50 Standard Implanted:Qty: 1 on 04/27/2010 at [facility] Spine 835 [id number] / / Description:SCREW 535X50 STA NDARD Screw 4.5x50 Standard Implanted:Qty: 1 on 04/27/2010 at [facility] Spine 835 [id number] / / Description:SCREW 4.5X50 STA NDARD Screw 4.5x45 Standard Implanted:Qty: 1 on 04/27/2010 at [facility] Spine 835 [address] / / Description:SCREW 4.5X45 STA NDARD [id number] e Canclls Crushed 60cc [[id number]] Implanted:Qty: 1 on 04/27/2010 at [facility] Explanted:at [facility] (Quantity not on file) Spine Musculoskeletal Transplant 11/19/2012 [id number]# / [id number] / [id number] e Canclls Crushed 60cc [[id number]] Implanted:Qty: 1 on 04/27/2010 at [facility] Explanted:at [facility] (Quantity not on file) Spine Musculoskeletal Transplant 11/19/2012 [id number]# / [id number] / Set Screw 3dx - [id number] Implanted:Qty: 7 on 04/27/2010 at [facility] N/A: Spine MEDTRONIC MEDICAL [id number]# / / Cnnctr Tsrh 3dx Sm - [id number] Implanted:Qty: 5 on 04/27/2010 at [facility] N/A: Spine Medtronic [id number]# / / Cnnctr Tsrh 3dx Md - [id number] Implanted:Qty: 1 on 04/27/2010 at [facility] N/A: Spine Medtronic [id number]# / / Screw Thin Crest 5.5x45mm - [id number] Implanted:Qty: 2 on 04/27/2010 at [facility] N/A: Spine SOFAMOR DANEK [id number]# / / [id number] Canc 90cc Crushed Freeze Dried [[id number]][[id number]] Implanted:Qty: 1 on 07/16/2013 at [facility] Spine Musculoskeletal Transplant 12/18/2015 [id number]# / [id number] / [id number] Implanted:Qty: 1 on 07/16/2013 at [facility] Spine SPINAL GRAFT 06/02/2016 4 [id number] / [id number] / Description:DBM [id number] GRAFT ON M [id number] 1x5cm Magnifuse Pcdbm [[id number]] Implanted:Qty: 1 on 07/16/2013 at [facility] Explanted:at [facility] (Quantity not on file) Spine Medtronic Spine/Ortho 05/29/2015 [id number]# / [id number] / Screw Lock 5.5mm Solera Break Off - [id number] Implanted:Qty: 6 on 07/16/2013 by Simón Hodge MD at [facility] N/A: Spine Medtronic Spine/Ortho [id number]# / / Screw Polyaxial 5.5x50 Co Cr Solera - [id number] Implanted:Qty: 2 on 07/16/2013 by Simón Hodge MD at [facility] N/A: Spine Medtronic Spine/Ortho [id number] 50# / / Screw Polyaxial 5.5x55 Co Cr Solera - [id number] Implanted:Qty: 1 on 07/16/2013 by Simón Hodge MD at [facility] N/A: Spine Medtronic Spine/Ortho [id number] 55# / / Screw Polyaxial 6.5x50 Co Cr Solera - [id number] Implanted:Qty: 1 on 07/16/2013 by Simón Hodge MD at [facility] N/A: Spine Medtronic Spine/Ortho [id number] 50# / / Screw Polyaxial 7.5x50 Co Cr Solera - [id number] Implanted:Qty: 1 on 07/16/2013 by Simón Hodge MD at [facility] N/A: Spine Medtronic Spine/Ortho [id number] 50# / / Screw Polyaxial 7.5x55 Co Cr Solera - [id number] Implanted:Qty: 1 on 07/16/2013 by Simón Hodge MD at [facility] N/A: Spine Medtronic Spine/Ortho [id number] 55# / / Beto 5.8a142xo Stra Titnm Alloy Solera - [id number] Implanted:Qty: 2 on 07/16/2013 by Simón Hodge MD at [facility] N/A: Spine Medtronic Spine/Ortho [id number]# / / Lauro Stephens Md Std - [id number] Implanted:Qty: 2 on 07/16/2013 by Simón Hodge MD at [facility] N/A: Spine Medtronic Spine/Ortho [id number]# / / Lauro Stephens Md Rmpd Thorac - [id number] Implanted:Qty: 8 on 07/16/2013 by Simón Hodge MD at [facility] N/A: Spine Medtronic Spine/Ortho [id number]# / / Screw Set Break-Off Hex Titnm - [id number] Implanted:Qty: 10 on 07/16/2013 by Simón Hodge MD at [facility] N/A: Spine Medtronic Spine/Ortho [id number]# / / Cnnctr Ti 5.5 16mm Xlink - [id number] Implanted:Qty: 1 on 07/16/2013 by Simón Hodge MD at [facility] N/A: Spine Medtronic Spine/Ortho [id number]# / / Cnnctr Ti 5.5 28mm Xlink - [id number] Implanted:Qty: 1 on 07/16/2013 by Simón Hodge MD at [facility] N/A: Spine Medtronic Spine/Ortho [id number]# / / [id number] 1cc [place] Plus Paste Dbm Implanted:Qty: 1 on 05/30/2019 by Josh Casillas MD at [facility] Explanted:at [facility] (Quantity not on file) N/A: Spine Medtronic Spine/Ortho 11/21/2020 [id number]# / [id number] / [id number] 4-10mm 15cc Medtronic Canclls Chips Freeze Dried Implanted:Qty: 1 on 05/30/2019 by Josh Casillas MD at [facility] Explanted:at [facility] (Quantity not on file) N/A: Spine Medtronic Spine/Ortho 09/16/2023 [id number]# / [id number] / Cage 5mm X 16mm X 14mm Implanted:Qty: 1 on 05/30/2019 by Josh Casillas MD at [facility] N/A: Spine [id number] / / 85HK Screw Cerv Ant 4x13mm Atlantistranslational Fa Slf Drill - [id number] Implanted:Qty: 2 on 05/30/2019 by Josh Casillas MD at [facility] N/A: Spine Medtronic Spine/Ortho [id number]# / / Screw Cerv Ant 4x13mm Atlantistranslational Va Slf Drill - [id number] Implanted:Qty: 2 on 05/30/2019 by Josh Casillas MD at [facility] N/A: Spine Medtronic Spine/Ortho [id number]# / / Plate Cerv 1lvl 19mmvision Elite Ant - [id number] Implanted:Qty: 1 on 05/30/2019 by Josh Casillas MD at [facility] N/A: Spine Medtronic Spine/Ortho [id number]# / / Procedures Procedure Name Priority Date/Time Associated Diagnosis Comments XR FEMUR 2 VIEWS LEFT Routine 01/02/2024 11:17 AM CDT Left thigh pain URINALYSIS MICROSCOPIC Routine 01/02/2024 11:04 AM CDT Diabetes mellitus without complication (HC) Depression, major, single episode, moderate (HC) Night sweats Weight loss, unintentional Inguinal lymphadenopathy UA W/ SEDIMENT EXAM REFLEXED PER CRITERIA Routine 01/02/2024 11:04 AM CDT Diabetes mellitus without complication (HC) Depression, major, single episode, moderate (HC) Night sweats Weight loss, unintentional Inguinal lymphadenopathy PTH,INTACT Routine 01/02/2024 10:58 AM CDT Hypercalcemia VITAMIN D 25 (DEFICIENCY) Add On 01/01/2024 11:20 AM CDT Hypercalcemia CBC WITH AUTO DIFFERENTIAL Routine 01/01/2024 11:20 AM CDT Night sweats Weight loss, unintentional Inguinal lymphadenopathy TSH WITH REFLEX Routine 01/01/2024 11:20 AM CDT Night sweats Weight loss, unintentional Inguinal lymphadenopathy C-REACTIVE PROTEIN Routine 01/01/2024 11 :20 AM CDT Night sweats Weight loss, unintentional Inguinal lymphadenopathy SEDIMENTATION RATE Routine 01/01/2024 11 :20 AM CDT Night sweats Weight loss, unintentional Inguinal lymphadenopathy COMP METABOLIC PANEL Routine 01/01/2024 11:20 AM CDT Night sweats Weight loss, unintentional Inguinal lymphadenopathy CBC WITH AUTO DIFFERENTIAL Routine 01/01/2024 11:20 AM CDT Night sweats Weight loss, unintentional Inguinal lymphadenopathy HEMOGLOBIN A1C Routine 01/01/2024 10:12 AM CDT Diabetes mellitus without complication (HC) SCAN-RADIOLOGY REPORT 12/23/2023 12:00 AM CDT XR DXA BONE DENSITY 1 SITE AXIAL AND 1 SITE PERIPHERAL Routine 03/03/2021 2:36 PM CDT Low bone density for age from Last 3 Months or Most Recently Relevant to Health Maintenance Results * XR FEMUR 2 VIEWS LEFT (01/02/2024 11:17 AM CDT) Anatomical Region Laterality Modality FEMURS, FEMUR L Computed Radiogr aphy 01/02/2024 3:06 PM CDT Narrative 01/02/2024 3:06 PM CDT For Patients: ??As a result of the Cures Act, medical imaging exams and procedure reports are released immediately into your electronic medical record. ??You may view this report before your referring provider. ??If you have questions, please contact your health care provider. Indication: Left thigh pain Technique: Two views left femur Comparison: None Findings: Patellofemoral narrowing and spurring. No joint effusion. No fracture. Mild joint space narrowing at the left hip joint. Postop changes to the soft tissues. Impression: No fracture or intrinsic osseous lesion. Dictated by Dustin Perez MD @ 01/02/2024 3:06:37 PM (Electronically Signed) Procedure Note Dustin Perez MD - 01/02/2024 For Patients: As a result of the Cures Act, medical imagingexams and procedure reports are released immediately into your electronicmedical record. You may view this report before your referring provider.If you have questions, please contact your health care provider. Indication: Left thigh pain Technique: Two views left femur Comparison: None Findings: Patellofemoral narrowing and spurring. No joint effusion. No fracture.Mild joint space narrowing at the left hip joint. Postop changes to thesoft tissues. Impression: No fracture or intrinsic osseous lesion. Dictated by Dustin Perez MD @ 01/02/2024 3:06:37 PM (Electronically Signed) Zena Yuan MD GENERAL IMAGING * (ABNORMAL) URINALYSIS MICROSCOPIC (01/02/2024 11:04 AM CDT) RBC None Seen 0-2, None Seen /HPF 01/02/2024 11:18 AM CDT [facility] WBC 3-5 0-2, 3-5, None Seen /HPF 01/02/2024 11:18 AM CDT [facility] BACTERIA Few None Seen, Rare, Few Bacteria/ HPF 01/02/2024 11:18 AM CDT [facility] EPITHELIAL CELLS Few None Seen, Few Epi/HPF 01/02/2024 11:18 AM CDT [facility] HYALINE CASTS 3-5 0-2, 3-5 /LPF 01/02/2024 11:18 AM CDT [facility] CALCIUM OXALATE CRYSTALS Present(A) (none) 01/02/2024 11:18 AM CDT [facility] Urine URINE SPECIMEN / Unknown Non-Blood / Unknown 01/02/2024 11:04 AM CDT 01/02/2024 11:04 AM CDT Zena Yuan MD URINE Performing Organization Address City/State/[facility] Co de Phone Number [facility] [address] [place] [address], [place] [phone] * (ABNORMAL) UA W/ SEDIMENT EXAM REFLEXED PER CRITERIA (01/02/2024 11:04 AM CDT) COLOR Yellow Yellow Color 01/02/2024 11:19 AM CDT [facility] CLARITY Clear Clear Clarity 01/02/2024 11:19 AM CDT [facility] SPECIFIC GRAVITY,URINE >=1.030(A) 1.010, 1.015, 1.020, 1.025 01/02/2024 11:19 AM CDT [facility] PH,URINE 5.5 6.0, 7.0, 8.0, 5.5, 6.5, 7.5, 8.5 01/02/2024 11:19 AM CDT [facility] UROBILINOGEN, QUALITATIVE Normal Normal EU/dl 01/02/2024 11:19 AM CDT [facility] PROTEIN, URINE 30(A) Negative mg/dL 01/02/2024 11:19 AM CDT [facility] GLUCOSE, URINE Negative Negative mg/dL 01/02/2024 11:19 AM CDT [facility] KETONES,URINE Negative Negative mg/dL 01/02/2024 11:19 AM CDT [facility] BILIRUBIN,URI NE Negative Negative 01/02/2024 11:19 AM CDT [facility] OCCULT BLOOD,URINE Negative Negative 01/02/2024 11:19 AM CDT [facility] NITRITE Negative Negative 01/02/2024 11:19 AM CDT [facility] LEUKOCYTE ESTERASE Trace(A) Negative 01/02/2024 11:19 AM CDT [facility] Urine URINE SPECIMEN / Unknown Non-Blood / Unknown 01/02/2024 11:04 AM CDT 01/02/2024 11:04 AM CDT Zena Yuan MD URINE [facility] [address] [place] [address], * (ABNORMAL) PTH,INTACT (01/02/2024 10:58 AM CDT) CALCIUM 13.8(HH) 8.8 - 10.2 mg/dL 01/02/2024 11:00 PM CDT [facility] PTH,INTACT 10.2(L) 15.0 - 69.0 pg/mL 01/02/2024 11:00 PM CDT [facility] Blood BLOOD SPECIMEN / Unknown Butterfly / Unknown 01/02/2024 10:58 AM CDT 01/02/2024 11:01 AM CDT Zena Yuan MD SEND OUTS [facility] [address] [place] [address], * SEDIMENTATION RATE (01/01/2024 11:20 AM CDT) SEDIMENTATION RATE 9 <30 mm/hr 2023 10:20 PM CDT [facility] Blood BLOOD SPECIMEN / Unknown Venipuncture / Unknown 01/01/2024 11:20 AM CDT 01/01/2024 11:25 AM CDT Zena Yuan MD HEMATOLOGY Performing Organization Address City/[facility]/ZIP Co de Phone Number [facility] [address] [place] [address], * (ABNORMAL) CBC WITH AUTO DIFFERENTIAL (01/01/2024 11:20 AM CDT) WHITE BLOOD COUNT 5.6 4.5 - 11.0 thou/cu mm 01/01/2024 11:48 AM CDT [facility] RED BLOOD COUNT 3.94(L) 4.00 - 5.20 mil/cu mm 01/01/2024 11:48 AM CDT [facility] HEMOGLOBIN 11.7(L) 12.0 - 16.0 g/dL 01/01/2024 11:48 AM CDT [facility] HEMATOCRIT 34.5 33.0 - 51.0 % 01/01/2024 11:48 AM CDT [facility] MCV 88 80 - 100 fL 01/01/2024 11:48 AM CDT [facility] MCH 29.7 26.0 - 34.0 pg 01/01/2024 11:48 AM CDT [facility] MCHC 33.9 32.0 - 36.0 g/dL 01/01/2024 11:48 AM CDT [facility] RDW 12.6 11.5 - 15.5 % 01/01/2024 11:48 AM CDT [facility] PLATELET COUNT 182 140 - 440 thou/cu mm 01/01/2024 11:48 AM CDT [facility] MPV 10.5 6.5 - 11.0 fL 01/01/2024 11:48 AM CDT [facility] % NEUT 76.0 % 01/01/2024 11:48 AM CDT [facility] % LYMPH 12.8 % 01/01/2024 11:48 AM CDT [facility] % MONO 10.3 % 01/01/2024 11:48 AM CDT [facility] % EOS 0.7 % 01/01/2024 11:48 AM CDT [facility] % BASO 0.2 % 01/01/2024 11:48 AM CDT [facility] ABSOLUTE NEUTROPHILS 4.3 1.7 - 7.0 thou/cu mm 01/01/2024 11:48 AM CDT [facility] ABSOLUTE LYMPHOCYTES 0.7(L) 0.9 - 2.9 thou/cu mm 01/01/2024 11:48 AM CDT [facility] ABSOLUTE MONOCYTES 0.6 <0.9 thou/cu mm 01/01/2024 11:48 AM CDT [facility] ABSOLUTE EOSINOPHILS 0.0 <0.5 thou/cu mm 01/01/2024 11:48 AM CDT [facility] ABSOLUTE BASOPHILS 0.0 <0.3 thou/cu mm 01/01/2024 11:48 AM CDT [facility] Blood BLOOD SPECIMEN / Unknown Venipuncture / Unknown 01/01/2024 11:20 AM CDT 01/01/2024 11:25 AM CDT Zena Yuan MD HEMATOLOGY [facility] [address] [place] [address], * TSH WITH REFLEX (01/01/2024 11:20 AM CDT) TSH 2.89 0.27 - 4.20 uIU/mL 01/01/2024 11:44 PM CDT [facility] Blood BLOOD SPECIMEN / Unknown Venipuncture / Unknown 01/01/2024 11:20 AM CDT 01/01/2024 11:[address] [facility] - 01/01/2024 11:44 PM CDT In Adults, TSH values between 5.00 and 10.00 uIU/ml do not necessarily indicate the presence of Hypothyroidism. Correlation with clinical findings such as presence of goiter and/or Thyroperoxidase (TPO) Antibody may be helpful. For more information please refer to LE[place] 2004; 291: 228-238. Zena Yuan MD CHEMISTRY Performing Organization Address [facility] Co de Phone Number [facility] [address] [place] [address], * VITAMIN D 25 (DEFICIENCY) (01/01/2024 11:20 AM CDT) Pathologist [facility] VITAMIN D TOTAL 79.1 20.0 - 80.0 ng/mL 01/02/2024 9:36 AM CDT [facility] Blood BLOOD SPECIMEN / Unknown Venipuncture / Unknown 01/01/2024 11:20 AM CDT 01/01/2024 11:[address] [facility] - 01/02/2024 9:36 AM CDT ? Vitamin D Status Deficiency: ? <20 ng/mL Insufficiency: ?20-29 ng/mL Sufficiency: ?30-80 ng/mL Possible Toxicity: ??>80 ng/mL Based on [place] [employer] recommendations Biotin supplements may cause clinically significant interference for this test assay. ??If interference is suspected, it is strongly recommended that biotin is discontinued for at least one week prior to retesting. Zena Yuan MD SEND OUTS Performing Organization Address [facility] Co de Phone Number [facility] [address] [place], [place] [id number], * (ABNORMAL) C-REACTIVE PROTEIN (01/01/2024 11:20 AM CDT) C-REACTIVE PROTEIN 2.3(H) <0.5 mg/dL 01/01/2024 11:44 PM CDT [facility] Blood BLOOD SPECIMEN / Unknown Venipuncture / Unknown 01/01/2024 11:20 AM CDT 01/01/2024 11:25 AM CDT Zena Yuan MD CHEMISTRY [facility] [address] [place] [address], * (ABNORMAL) COMP METABOLIC PANEL (01/01/2024 11:20 AM CDT) [facility] SODIUM 136 136 - 145 mmol/L 01/02/2024 1:19 AM [facility] POTASSIUM 3.7 3.5 - 5.1 mmol/L 01/02/2024 1:19 AM [facility] CHLORIDE 95(L) 98 - 107 mmol/L 01/02/2024 1:19 AM [facility] CO2,TOTAL 28 22 - 29 mmol/L 01/02/2024 1:19 AM [facility] ANION GAP 13 5 - 18 01/02/2024 1:19 AM [facility] GLUCOSE 135(H) 70 - 99 mg/dL 01/02/2024 1:19 AM [facility] CALCIUM 13.1(HH) 8.8 - 10.2 mg/dL 01/02/2024 1:19 AM [facility] BUN 25(H) 8 - 23 mg/dL 01/02/2024 1:19 AM [facility] CREATININE 1.35(H) 0.50 - 0.90 mg/dL 01/02/2024 1:19 AM [facility] BUN/CREAT RATIO 19 10 - 20 1:19 AM [facility] eGFR 39(L) >90 mL/min/1. 73m2 01/02/2024 1:19 AM CDT [facility] Comment:As of 2021, eG FR is calculated by the CKD-EPI creatinine equation without race adjustment. ??eGFR can be influenced by muscle mass, exercise, and diet. ??The reported eGFR is an estimation only and is only applicable if the renal function is stable. ALBUMIN 4.3 4.0 - 4.9 g/dL 01/02/2024 1:19 AM CDT [facility] [facility] PROTEIN,TOTAL 6.5 6.0 - 8.0 g/dL 01/02/2024 1:19 AM CDT [facility] BILIRUBIN,TOTAL 0.5 0.0 - 1.2 mg/dL 01/02/2024 1:19 AM CDT [facility] ALK PHOSPHATASE 91 35 - 104 IU/L 01/02/2024 1:19 AM CDT [facility] ALT (SGPT) 11 10 - 35 IU/L 01/02/2024 1:19 AM CDT [facility] AST (SGOT) 24 10 - 35 IU/L 01/02/2024 1:19 AM CDT [facility] Blood BLOOD SPECIMEN / Unknown Venipuncture / Unknown 01/01/2024 11:20 AM CDT 01/01/2024 11:25 AM CDT Zena Yuan MD CHEMISTRY [facility] [address] [place] [address], * HEMOGLOBIN A1C MONITORING (POCT) (01/01/2024 10:12 AM CDT) HEMOGLOBIN A1C MONITORING (POCT) 5.9 <=6.4 % 01/01/2024 10:33 AM CDT [facility] Blood BLOOD SPECIMEN / Unknown Venipuncture / Unknown 01/01/2024 10:12 AM CDT 01/01/2024 10:13 AM CDT Narrative [facility] - 01/01/2024 10:33 AM CDT ? (<=6.9%) ? Indicates good control ? (7.0% to 7.9%) ? Indicates fair control ? (>=8.0%) ? Indicates poor control ?? NOTE: ??These thresholds are guidelines and ?individual targets may vary. Falsely low levels may be seen with: Recent Transfusion, Recent Significant Blood Loss, Hemolytic Diseases, or Falsely elevated levels may be seen with: Untreated Anemias, Splenectomy ? Zena Yuan MD CHEMISTRY [facility] [address] [place] [address], * SCAN-RADIOLOGY REPORT (12/23/2023 12:00 AM CDT) Anatomical Region Laterality Modality Other Scanner OTHER * (ABNORMAL) XR DXA BONE DENSITY 1 [...] recommended in 3-5 years. 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 01/28/11 Dr. Gilbert Knox 01/28/11
--- OUTSIDE RECORDS SUMMARY | 2024-01-03 00:28 | XMS_ITS | Encounter Summary ---
Author Name Unknown Organization [facility] Address [address] [place] [address] Care Team Providers Care Swimming Pool Maintenance Name Role Phone Unavailable Primary Care Provider [...] patient reports bradycardia with the [place] in [place] and was placed on Norvasc by the physicians in [place]. She reports migraines have gone away with [...] Vision OS CDM Reports - EYEGEN Id: [id number] Status: Fnl documented in this encounter Plan of Treatment Not on file documented as of this encounter Visit Diagnoses Not on filedocumented in this encounter
--- OUTSIDE RECORDS SUMMARY | 2024-01-03 00:28 | XMS_ITS ---
Author Name Unknown Organization [facility] Address [address] [place] [address] Care Team Providers Care Psychologist Military Personnel Name Role Phone Unavailable Unavailable Unavailable Surgery Details Not on file Complications Check Surgery Details section. Procedure Estimated Blood Loss Check Surgery Details section. Procedure Findings Check Surgery Details section. Procedure Specimens Taken Check Surgery Details section.
--- OUTSIDE RECORDS SUMMARY | 2024-01-03 00:28 | XMS_ITS | Referral Summary ---
Author Name Unknown Organization [facility] Address [address] [place] [address] Care Team Providers Care Iron Handler Name Role Phone Unavailable Primary Care Provider Unavailabl e Source Comments Patient records contain information from all sites at [facility]. For routine questions regarding patient records, call [phone] during business hours, M-F 8:00 AM - 5:00 PM Central Time. Record requests for emergency care only can be directed to [phone] at any time.[facility] Allergies Active Allergy Reactions Criticality Noted Date [...] on file Medical Devices Implanted Type Area [employer] Division Supervisor Device Identifier Shelf Expiration Date Model / Serial / Lot Tmj-Fossa Screw 2.0 X 8mm - Matos [id number] Implanted:Qty: 1 on 04/25/2008 [facility] [place] Prost[place] Left: Other/Legacy - See Implant Description TMJ Implants Description:Device Manufactu rer - [employer] Body Location - Left. Device Status [place] [facility] [id number]. Tmj-Custom Implant - Matos [id number] Implanted:Qty: 1 on 04/25/2008 Mis Prosthesis Left: Other/Legacy - See Implant Description Other/Legacy - See Implant Description Description:Device Manufactu rer - [facility]. Body Location - Left. Device Status Text - [facility] [id number]. Tmj-Fossa Screw 2.0 X 8mm - Matos [id number] Implanted:Qty: 1 on 04/25/2008 Mis Prosthesis Left: Other/Legacy - See Implant Description TMJ Implants Description:Device Manufactu rer - [employer] Body Location - Left. Device Status Text - [facility] [id number]. Tmj-Custom Implant - Matos [id number] Implanted:Qty: 1 on 01/20/2017 [facility] [place] Pro[place]hesis Other/Legacy - See Implant Description TMJ Implants Description:Device Manufactu rer - [employer] Body Location - Other. Right. Device Status Text - [facility] [id number].
[2024-01-03 00:29] LABS: Potassium* 3.4 mmol/L (3.6-5.1); Sodium* 133 mmol/L (135-149)
[2024-01-03 00:31] LABS: Anion Gap 4 mEq/L (7-15); Carbon Dioxide* 32 mmol/L (20-32); Creatinine* 1.2 mg/dL (0.5-1.5); Est. Creatinine Clearance* 30.14; Estimated Glomerular Filt Rate 45 ml/min; Total Protein* 6.8 g/dL (6.0-8.3)
[2024-01-03 00:32] LABS: Alanine Aminotransferase* 12 U/L (4-35); Alkaline Phosphatase* 76 U/L (40-150); Aspartate Amino Transferase* 25 U/L (12-35); Bilirubin Direct* 0.2 mg/dL (0.0-0.5); Bilirubin Total* 0.5 mg/dL (0.1-1.5); Blood Urea Nitrogen* 27 mg/dL (7-30); Glucose* 140 mg/dL (60-115)
[2024-01-03] MEDS: MAGNESIUM IV 2 GM/50 ML PIGGYBACK IVPB ×2 (00:57→04:06)
[2024-01-03] MEDS: POTASSIUM BICARB 25 MEQ EFFERVESCENT TAB PO (00:57)
[2024-01-03 01:51] LABS: Calcium* 12.8 mg/dL (8.4-10.6); Magnesium* 0.9 mg/dL (1.5-2.6)
--- NOTE | 2024-01-03 03:13 | W.PM.THH&P_ITS ---
Telehealth- H&P: HPI History of Present Illness Date Seen: 01/03/24 Chief complaint: High Calcium-Got a MD call to come in Narrative: Dipika Franco is seen as an Interactive Telehealth visit. Dipika Franco is a 83 year old male who is Seen in her hospital room at [facility]. She has been admitted through the emergency room. She is a very pleasant 83-year-old female who states she just returned from wintering in [place]. Over that time she is lost around 50 pounds she just does not feel well she is weak she is tired. She went in for routine evaluation of her diabetes and clinic. They called her back and she had an additional CAT scan done today in clinic. She was also noted to have blood drawn they called her from the blood and told her her calcium was high that she needed to go into the emergency room. She was evaluated in the emergency room and again found to have an elevated calcium ionized calcium was indeed elevated. Emergency room physician started a workup including CT scan of the chest abdomen pelvis. Unfortunately this seems to be showing carcinomatosis. She has now been admitted for further evaluation and treatment. Other than being tired and weak and weight loss she does not have any other complaints. Review of Systems Narrative: A complete review of systems was performed positive pertinent and negatives in the history of present illness. [facility] Medical History (Updated 01/03/24 @ 03:16 by Kendrick Davis DO) Vitamin D deficiency (01/19/10) ?E55.9 - Vitamin D deficiency, unspecified (ICD-10) Parotitis (06/02/11) ?K11.20 - Sialoadenitis, unspecified (ICD-10) Adenoma of left adrenal gland (01/19/10) ?D35.02 - Benign neoplasm of left adrenal gland (ICD-10) Diverticulosis (01/19/10) ?K57.90 - Diverticulosis of intestine, part unspecified, without perforation or abscess without bleeding (ICD-10) Cystocele (01/19/10) Hypertension (01/19/10) ?I10 - Essential (primary) hypertension (ICD-10) Hyperlipidemia (01/19/10) ?E78.5 - Hyperlipidemia, unspecified (ICD-10) Diabetes (01/19/10) ?E11.9 - Type 2 diabetes mellitus without complications (ICD-10) Urinary incontinence (01/19/10) ?R32 - Unspecified urinary incontinence (ICD-10) Arthritis (01/19/10) ?M19.90 - Unspecified osteoarthritis, unspecified site (ICD-10) Surgical History 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) ?Z96.651 - Presence of right artificial knee joint (ICD-10) History of hip surgery (08/29/23) ?Z98.890 - Other specified postprocedural states (ICD-10) H/O oophorectomy (01/19/10) History of hysterectomy (01/19/10) ?Z90.710 - Acquired absence of both cervix and uterus (ICD-10) H/O foot surgery (01/19/10) ?Z98.890 - Other specified postprocedural states (ICD-10) Previous back surgery (01/19/10) ?Z98.890 - Other specified postprocedural states (ICD-10) History of facial surgery (01/19/10) ?Z98.890 - Other specified postprocedural states (ICD-10) Hx of cholecystectomy (01/19/10) ?Z90.49 - Acquired absence of other specified parts of digestive tract (ICD- 10) Hx of appendectomy (01/19/10) ?Z90.49 - Acquired absence of other specified parts of digestive tract (ICD- 10) Social History (Reviewed 12/25/23 @ 09:54 by Sola Bailey ~ [facility] What is your current living situation?: I presently have a place to live Problems where you live: no known problems Problems where you live details: NA In the past 12 months, utilities in danger of being shut off: no In past 12 months, lack of transportation kept you from medical appts, meetings, work, or getting things needed for daily living: no In the past 12 mos, have been you worried that your food would run out before you had money to buy more?: never true In the past 12 mos, the food you bought just didn't last and you didn't have money to buy more?: never true Highest level of school completed/degree received: high school graduate Smoking Status: Never smoker Second hand tobacco smoke exposure: No How often do you have a drink containing alcohol: never How often do you have six or more drinks on one occasion: Never AUDIT-C Alcohol total score: 0 Non-prescribed substance use: denies use Caffeine: No How often does anyone, including family, friends and others, physically hurt you : never How often does anyone, including family, friends and others, insult or talk down to you: never How often does anyone, including family, friends and others, threaten you with harm: never How often does anyone, including family, friends and others, scream or curse at you: never service: No Meds Home Medications and Allergies Home Medications Medication Instructions Recorded Confirmed Type hydrochlorothiazide 25 mg tablet 25 mg PO DAILY 06/17/22 12/25/23 History rosuvastatin 10 mg tablet 10 mg PO HS 06/17/22 12/25/23 History glyburide 2.5 mg tablet 2.5 mg PO BID 06/15/23 12/25/23 History oxycodone-acetaminophen 5 mg-325 1 - 2 tab PO QHS PRN pain 12/25/23 12/25/23 History mg tablet Allergies Allergy/AdvReac Type Severity Reaction Status Date / Time metformin Allergy Verified 12/25/23 09:51 morphine Allergy Verified 12/25/23 09:51 niacin Allergy Verified 12/25/23 09:51 Sulfa (Sulfonamide Allergy Verified 12/25/23 09:51 Antibiotics) Exam Narrative Exam Narrative: Physical Exam GENERAL: ?vital signs reviewed, well developed and nourished, in no distress HEENT: pupils are equal round and reactive to light, extraocular movements are grossly within normal limits and oral mucosa is moist. NECK: Supple without lymphadenopathy or thyromegaly according to nursing staff examination observation HEART: Regular rate and rhythm without any rubs, murmurs, or gallops. LUNGS: Clear to auscultation bilaterally with good air movement throughout ABDOMEN: Observation from nurse assisted exam, abdomen appears soft, nontender, and nondistended with Positive bowel sounds noted. EXTREMITIES: Strength and sensation is observed to be grossly within normal limits in the upper and lower extremities.? No focal strength deficit is observed. SKIN:? Observed warm and dry with color normal Const Vital Signs, click to edit/add: Vital Signs - 24 hr 01/03/24 00:00 01/03/24 00:13 01/03/24 01:07 Temperature 97.8 F Pulse Rate Pulse Rate [Pulse Oximeter] 75 58 L Pulse Rate [Right Radial] Respiratory Rate 18 16 Blood Pressure Blood Pressure [Left Arm] Blood Pressure [Left Upper Arm] 141/72 H 125/58 L Pulse Oximetry 98 97 96 Oxygen Delivery Method Room Air Room Air 01/03/24 01:31 01/03/24 02:59 01/03/24 03:09 Temperature 96.9 F L 96.9 F L Pulse Rate 57 L Pulse Rate [Pulse Oximeter] Pulse Rate [Right Radial] 58 L 58 L Respiratory Rate 16 16 16 Blood Pressure 130/52 L Blood Pressure [Left Arm] 150/59 H 150/59 H Blood Pressure [Left Upper Arm] Pulse Oximetry 96 97 97 Oxygen Delivery Method Room Air Room Air Hospitalist - H&P: Result Labs Labs: Short CBC 01/03/24 Range/Units 00:00 WBC 5.00 (4.50-11.00) K/uL Hgb 11.2 L (12.0-16.0) gm/dL Hct 34.1 (33.0-51.0) % Plt Count 184 (140-440) K/uL BMP 01/03/24 00:00 Sodium 133 L Potassium 3.4 L Chloride 97 Carbon Dioxide 32 BUN 27 Creatinine 1.2 Glucose 140 H Calcium 12.8 H* Liver Function 01/03/24 Range/Units 00:00 Total Bilirubin 0.5 (0.1-1.5) mg/dL Direct Bilirubin 0.2 (0.0-0.5) mg/dL AST 25 (12-35) U/L ALT 12 (4-35) U/L Alkaline Phosphatase 76 (40-150) U/L Albumin 4.1 (3.3-5.0) g/dL Assessment and Plan Assessment and plan (1) Hypercalcemia: Status: Acute (2) Carcinomatosis: Status: Acute (3) Unexplained night sweats: Status: Acute (4) Unintentional weight loss: Status: Acute (5) Hypertension: Problem comment: -stable postoperatively -hold hydrochlorothiazide tonight, resume upon discharge Status: Acute (6) Hypokalemia: Status: Acute (7) Diabetes: Problem comment: -encourage diabetic diet -glucose POC with meals -hold glyburide, resume upon discharge Status: Acute Plan hypercalcemia?patient certainly has significant signs concerning for malignancy weight loss no appetite hypercalcemia. CT scan is also supportive of this. At this point suspect her hypercalcemia secondary to malignancy. Will give IV fluids normal saline at 200 MLS per hour. At this point we will hold off on Lasix. I will start a single dose of calcitonin 280 units subcu. Will recheck a calcium level and ionized calcium in the morning. Patient is also on what appears to be hydrochlorothiazide which can raise calcium. Suspect this is a minor contribution. Will hold off on zoledronic acid for now but this could be started if needed. Ultimately I suspect her hypercalcemia is again secondary to malignancy. PTH has been drawn I do not think at this point additional workup is needed. Carcinomatosis?primary unclear. Ultimately patient will need to see oncology. Interesting she has had a hysterectomy and oophorectomy when she was in her 30s. Because of her underlying carcinomatosis unclear. She does have some ascites this potentially could be tapped. However will defer that to oncology for additional workup if available. Night sweats unintentional weight loss secondary to underlying malignancy. Hypertension hypokalemia diabetes her current medications were placed on hold by her clinic physician. Will continue to hold these for now. Plan for treatment of her hypercalcemia fluids calcitonin was discussed in detail. I also talked about my concern and the carcinomatosis seen on her CT scan. At this point she does not have additional questions. DVT prophylaxis will use subcutaneous Lovenox. Kendrick Davis DO, Pharm. D. Telehealth: Statement Statement Telehealth Visit: Today's History and Physical is provided via interactive telehealth by Kendrick Davis DO.? Patient is located at [facility].? Provider is located at [facility].? Nursing staff assisted with the patient's exam. The visit being done today meets criteria for a telehealth visit and the patient or patient?s parent/guardian is aware the visit is a telehealth visit. Camera Start Time: 02:24 Camera End Time: 02:38
[2024-01-03] MEDS: POTASSIUM CHLORIDE 10 MEQ/100 ML PIGGYBACK 100 MEQ IVPB ×2 (03:20→06:00)
[2024-01-03] MEDS: 0.9 % SODIUM CHLORIDE 1000 ml 1,000 ML 200 ML IV ×5 (03:55→23:56)
--- NOTE | 2024-01-03 03:59 | PC.NURSE ---
Pt admitted to floor @ 0200. reporting zero pain. No N/V. Afebrile. Feeling fatigued but IND to ambulate.
[2024-01-03] MEDS: CALCITONIN,SALMON,SYNTHETIC 200 UNIT/ML inj 280 UNIT SUBCUT (04:04)
--- NOTE | 2024-01-03 04:18 | PC.NURSE ---
Order for Mg to run @ 150ml/hr. RN after discussion with Charge decided to run at 25ml/hr so as not to burn IV site going in.
[2024-01-03] MEDS: ONDANSETRON 2 MG/ML inj 4 MG IVP (05:10)
[2024-01-03] MEDS: SODIUM CHLORIDE 0.9 % (FLUSH) 10 ML SYRINGE 5 ML IVF ×2 (05:13→20:24)
[2024-01-03] MEDS: ACETAMINOPHEN 325 MG TABLET 650 MG PO (07:55)
[2024-01-03 08:10] LABS: Ionized Calcium* 1.52 mmol/L (1.11-1.30)
[2024-01-03 08:25] LABS: Chloride* 102 mmol/L (96-114); Potassium* 3.7 mmol/L (3.6-5.1); Sodium* 132 mmol/L (135-149)
[2024-01-03 08:28] LABS: Anion Gap 2 mEq/L (7-15); Blood Urea Nitrogen* 21 mg/dL (7-30); Carbon Dioxide* 28 mmol/L (20-32); Est. Creatinine Clearance* 36.16; Estimated Glomerular Filt Rate 56 ml/min
[2024-01-03 08:29] LABS: Calcium* 11.2 mg/dL (8.4-10.6); Glucose* 148 mg/dL (60-115)
--- NOTE | 2024-01-03 11:11 | P.IMPN_ITS ---
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 Recheck in a.m. HCTZ held PTH, calcium (PTH intact) pending Will defer biphosphonate or other therapies to Oncology group Status: Acute (2) Carcinomatosis: Problem details: CT shows omental carcinomatosis, diffuse adenopathy likely metastatic, pelvic ascites Reported 50 lb weight loss since May 2023, poor appetite, night sweats, generalized weakness S/p hysterectomy/oophorectomy in her 30s Patient would like to follow-up with [facility] in [place] Status: Acute (3) Unexplained night sweats: Problem details: Likely in setting of malignancy Status: Acute (4) Unintentional weight loss: Problem details: Likely in setting of malignancy Status: Acute (5) Hypertension: Problem details: Hold HCTZ in setting of hypercalcemia Monitor Status: Chronic (6) Hypokalemia: Problem details: Potassium improved to 3.7 following supplement Continue to monitor, receiving 1 dose IV Lasix today Status: Acute (7) Diabetes: Problem details: Diabetic diet Glucose POC with meals, will hold off on ISS for now with poor oral intake, adjust as necessary No longer takes glyburide A1c ordered Status: Chronic (8) Malnourished: Problem details: Severe, consulted by Nutrition Dietary recommendations made, Ensure supplements Status: Acute Plan CODE: DNR/DNI VTE PPX: Lovenox Disposition: Inpatient Time Spent With Patient Total time spent: Total time spent caring for the patient today was 45 minutes. This includes time spent for the visit reviewing the chart, time spent during the visit, time spent after the visit and documentation and planning in coordination of care. Subjective Date Seen: 01/03/24 Interval history: Patient reports feeling okay this morning. Remains fatigued which has been chronic for months. Mild headache this morning. Mild nausea. Tells me she has not felt well since her knee replacement surgery in May 2023. 50 lb weight loss since that time. No rebound in her fatigue or weakness. Saw a couple of doctors over this time who encouraged her to drink Ensure. No family history of cancer. Exam Narrative: Exam Narrative: PHYSICAL EXAM General: Pleasant, appears tired, otherwise NAD HEENT: Normocephalic, atraumatic, sclera white, EOMI, oral mucosa dry Cardiovascular: RRR, S1S2. No pitting edema Pulmonary: CTA bilaterally without rhonchi, rales, expiratory wheezes. No dysp dixon Abdominal: Soft, nondistended, NTTP Neurological: Alert, answering questions appropriately, cranial nerves intact, no focal findings Extremities: No gross joint deformity or swelling. AROMI. Neurovascularly intact Skin: Warm, dry. Const: Vital Signs, click to edit/add: Vital Signs - 24 hr 01/03/24 00:00 01/03/24 00:13 01/03/24 01:07 Temperature 97.8 F Pulse Rate Pulse Rate [Pulse Oximeter] 75 58 L Pulse Rate [Right Radial] Respiratory Rate 18 16 Blood Pressure Blood Pressure [Le ft Arm] Blood Pressure [Le ft Upper Arm] 141/72 H 125/58 L Pulse Oximetry 98 97 96 Oxygen Delivery Nj thod Room Air Room Air 01/03/24 01:31 01/03/24 02:59 01/03/24 03:09 Temperature 96.9 F L 96.9 F L Pulse Rate 57 L Pulse Rate [Pulse Oximeter] Pulse Rate [Right Radial] 58 L 58 L Respiratory Rate 16 16 16 Blood Pressure 130/52 L Blood Pressure [Le ft Arm] 150/59 H 150/59 H Blood Pressure [Le ft Upper Arm] Pulse Oximetry 96 97 97 [facility] Room Air 01/03/24 07:00 01/03/24 07:45 01/03/24 10:18 Temperature 97.6 F 97.2 F L Pulse Rate Pulse Rate [Pulse Oximeter] Pulse Rate [Right Radial] 67 67 60 Respiratory Rate 14 14 16 Blood Pressure Blood Pressure [Le ft Arm] 144/65 H 132/55 L Blood Pressure [Le ft Upper Arm] Pulse Oximetry 93 94 Oxygen Delivery Nj thod Room Air Room Air Labs Labs: Laboratory Results - last 24 hr 01/03/24 01/03/24 00:00 08:05 WBC 5.00 RBC 3.87 L Hgb 11.2 L Hct 34.1 MCV 88 MCH 29 MCHC 33 RDW Coeff of Will 12.2 Plt Count 184 Neut % (Auto) 61.4 Lymph % (Auto) 23.2 [place] % (Auto) 12.8 H Eos % (Auto) 1.8 Baso % (Auto) 0.4 Neut # (Auto) 3.07 Lymph # (Auto) 1.16 [place] # (Auto) 0.60 Eos # (Auto) 0.09 Baso # (Auto) 0.02 Abs Immat Gran (auto) 0.02 Imm/Tot Granulo (auto) 0.4 Sodium 133 L 132 L Potassium 3.4 L 3.7 Chloride 97 102 Carbon Dioxide 32 28 Anion Gap 4 L 2 L BUN 27 21 Creatinine 1.2 1.0 Estimated Creat Clear 30.14 36.16 Estimated GFR 45 56 Glucose 140 H 148 H Calcium 12.8 H* 11.2 H Ionized Calcium Zonia 1.64 H 1.52 H Phosphorus 4.0 Magnesium 0.9 L* 2.0 Total Bilirubin 0.5 Direct Bilirubin 0.2 AST 25 ALT 12 Alkaline Phosphatase 76 Total Protein 6.8 Albumin 4.1
[2024-01-03] MEDS: FUROSEMIDE 10 MG/ML inj 20 MG IVP (12:03)
[2024-01-03 12:15] LABS: Hemoglobin A1C* 5.7 % (0-5.6)
[2024-01-03] MEDS: ZOLEDRONIC ACID 4 MG in 0.9 % SODIUM CHLORIDE 100 ml 100 ML 420 MG IVPB (14:12)
--- NOTE | 2024-01-03 15:16 | PC.NURSE ---
patient A/Ox3, pleasant and cooperative. LS CTA, trace edema to BLE. 02 sats 93-94% on RA, encouraged deep breaths. pt up frequently to urinate clear urine. continue NS at 200cc/hr. Zoledronic acid infused this afternoon. pt nauseated all shift, denied zofran. assistant casino shift manager gave at 0500. Q-easy patch given however smell didn't sit will with patient and removed. Tylenol given this AM for headache and has improved. Labs improving. pt verbalizes I feel more steady on my feet today. up indep in room.
[2024-01-03] MEDS: ENOXAPARIN 40 MG/0.4 ML INJ SUBCUT (20:23)
[2024-01-03] MEDS: ROSUVASTATIN CALCIUM 10 MG TABLET PO (20:23)
[2024-01-04 02:15] VITALS: BP 116/49; PULSE 55; RESP 16; TEMP 36.6; O2SAT 95
[2024-01-04] MEDS: 0.9 % SODIUM CHLORIDE 1000 ml 1,000 ML 200 ML IV (04:45)
--- NOTE | 2024-01-04 04:57 | PC.NURSE ---
Pt up IND in room and voiding. Oriented x3. Pt states she is not having any nausea or vomiting unless she eats food. No appetite. Reporting zero pain. Pleasant and cooperative.
[2024-01-04 06:40] LABS: Hematocrit 27.6 % (33.0-51.0); Mean Corpuscular HGB Conc 33 gm/dL (32-36); Mean Corpuscular Hemoglobin 29 pg (26-34); Mean Corpuscular Volume 89 fL (80-100); Platelet Count* 150 K/uL (140-440); White Blood Count* 3.99 K/uL (4.50-11.00)
[2024-01-04 06:42] LABS: Chloride* 109 mmol/L (96-114); Potassium* 3.3 mmol/L (3.6-5.1); Sodium* 135 mmol/L (135-149)
[2024-01-04 06:45] LABS: Anion Gap -1 mEq/L (7-15); Carbon Dioxide* 27 mmol/L (20-32); Creatinine* 0.9 mg/dL (0.5-1.5); Est. Creatinine Clearance* 36.16; Estimated Glomerular Filt Rate 63 ml/min
[2024-01-04 06:46] LABS: Blood Urea Nitrogen* 15 mg/dL (7-30); Calcium* 9.9 mg/dL (8.4-10.6); Glucose* 83 mg/dL (60-115); Magnesium* 1.2 mg/dL (1.5-2.6)
[2024-01-04 07:00] VITALS: BP 138/63; PULSE 61; RESP 18; TEMP 36.7; O2SAT 96
[2024-01-04 07:05] LABS: Slide Review Reflex No
[2024-01-04 07:10] VITALS: PULSE 53
[2024-01-04] MEDS: MAGNESIUM IV 2 GM/50 ML PIGGYBACK IVPB (08:31)
[2024-01-04] MEDS: POTASSIUM CHLORIDE 10 MEQ CAPSULE ER 40 MEQ PO (08:32)
--- NOTE | 2024-01-04 12:11 | PM.DS1 ---
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 Follow-up with PCP prior to resuming PTH, calcium (PTH intact) remain pending at discharge Will defer biphosphonate or other therapies to Oncology group/PCP (2) Carcinomatosis: Status: Acute Problem details: CT shows omental carcinomatosis, diffuse adenopathy likely metastatic, pelvic ascites Reported 50 lb weight loss since May 2023, poor appetite, night sweats, generalized weakness S/p hysterectomy/oophorectomy in her 30s Outpatient follow-up with [facility] in [place] (contacted, records forwarded. They will call patient with appointment information) (3) Unexplained night sweats: Status: Acute Problem details: Likely in setting of malignancy (4) Unintentional weight loss: Status: Acute Problem details: Likely in setting of malignancy (5) Hypertension: Status: Chronic Problem details: Hold HCTZ in setting of hypercalcemia Monitor, adequate. (6) Hypokalemia: Status: Acute Problem details: Potassium improved to 3.7 following supplement. Will discharge on low dosing, follow up with PCP for ongoing therapy as necessary. (7) Diabetes: Status: Chronic Problem details: A1c 5.7 No longer takes glyburide (8) Malnourished: Status: Acute Problem details: Severe, consulted by Nutrition Dietary recommendations made, Ensure supplements DS: Summary Hospital Course Hospital Course: 83 year old female past medical history significant for hypertension, asthma, diabetic was admitted to the medical floor for further management hypercalcemia in setting of newly found carcinomatosis. Course of care and details as noted above. Outpatient follow up with [facility] [place]. Remainder of chronic medical comorbidities were monitored and managed with home medications. Status at Discharge Overall status at discharge: patient is back to baseline Time Spent with Patient Time attestation: Total time spent providing and/or coordinating discharge services: Time spent: Greater than 30 minutes Exam Narrative: Exam Narrative: PHYSICAL EXAM General: Pleasant, conversant, NAD Cardiovascular: RRR Pulmonary: No dyspnea Neurological: Alert, answering questions appropriately Skin: Warm, dry. Const: Vital Signs, click to edit/add: Vital Signs - 24 hr 01/03/24 14:00 01/03/24 16:01 01/03/24 19:22 Temperature 97.1 F L 97.9 F Pulse Rate 69 Pulse Rate [Right Radial] 60 59 L Respiratory Rate 16 16 Blood Pressure [Le ft Arm] 140/65 H 141/57 H Pulse Oximetry 93 93 Oxygen Delivery Me thod Room Air Room Air 01/03/24 19:47 01/03/24 22:16 01/03/24 22:48 Temperature 98 F Pulse Rate 59 L 59 L Pulse Rate [Right Radial] 56 L Respiratory Rate 16 Blood Pressure [Le ft Arm] 122/50 L Pulse Oximetry 95 Oxygen Delivery Me thod Room Air 01/03/24 22:49 01/04/24 02:15 01/04/24 07:00 Temperature 97.9 F 98.0 F Pulse Rate Pulse Rate [Right Radial] 56 L 55 L 61 Respiratory Rate 16 16 18 Blood Pressure [Le ft Arm] 116/49 L 138/63 Pulse Oximetry 95 96 Oxygen Delivery Me thod Room Air Room Air 01/04/24 07:00 01/04/24 07:10 Temperature Pulse Rate 53 L Pulse Rate [Right Radial] 61 Respiratory Rate 18 Blood Pressure [Le ft Arm] Pulse Oximetry Oxygen Delivery Me thod DS: Data Data Completed and Pending Labs on day of discharge: Labs from last 24 hours 01/04/24 01/03/24 06:05 08:05 WBC 3.99 L RBC 3.10 L Hgb 9.0 L Hct 27.6 L MCV 89 MCH 29 MCHC 33 Plt Count 150 Sodium 135 Potassium 3.3 L Chloride 109 Carbon Dioxide 27 Anion Gap -1 L BUN 15 Creatinine 0.9 Estimated Creat Clear 36.16 Estimated GFR 63 Glucose 83 Hemoglobin A1c 5.7 H Calcium 9.9 Magnesium 1.[address] Chest/Ab/Pelvis: Attestation: I have reviewed the pertinent imaging results. Radiologist's impression: CT chest, abdomen and pelvis acquired with 76 mL of isovue 370 IV contrast. COMPARISON: None. FINDINGS: CHEST: Cardiovascular structures: Heart size is normal. Thoracic aorta and main pulmonary artery are normal in caliber. Mediastinum and gail: Mediastinal adenopathy is noted with subcarinal lymph node measuring 4.2 x 3 5 centimeters in diameter. Lungs and pleura: Lungs and pleural spaces are clear. No suspicious nodules, infiltrates, or effusions. Chest wall and axilla: No mass or adenopathy. Bones: No suspicious bone lesions. Thoracic spine fixation hardware. Otherwise, unremarkable for age. ABDOMEN AND PELVIS: Liver: Unremarkable. Gallbladder and bile ducts: Gallbladder is absent. No intrahepatic or extrahepatic biliary ductal dilation. Pancreas: Unremarkable. Spleen: Probable left superior splenic hemangioma. Indeterminate hypodensity at the inferior spleen. Adrenal glands: Nodular thickening of the left adrenal gland, non-specific. Right adrenal gland is unremarkable. Kidneys: Unremarkable. GI tract: Unremarkable. Vascular structures: Unremarkable. Lymph nodes: Diffuse abdominal and pelvic adenopathy. . Miscellaneous: Omental carcinomatosis. Peritoneal nodularity, for example in the left pelvis measuring 28 mm (2/221). Small to moderate fluid in the pelvis. Mild diffuse peritoneal thickening/enhancement in the pelvis. Pelvic Organs: Uterus is absent. Mild bladder wall thickening may be related to incomplete distention. Bones: Fixation hardware in the spine. Spacers noted in the disc spaces in the lumbar spine.. IMPRESSION: 1. Diffuse adenopathy likely metastatic. 2. Omental carcinomatosis. 3. Peritoneal nodularity with thickening and mild enhancement. 4. Mild to moderate pelvic ascites. Discharge Plan Discharge Disposition: Home, Self-Care Date of Admission: 01/03/24 02:55 Attending Provider on Discharge: Fariba Raza Primary Care Provider: Zena Yuan Condition: Improved Anticipated Discharge Date/Time: 01/04/24 11:28 Discharge Medications: New potassium chloride 20 mEq tablet extended release 20 meq PO BID Qty: 30 0RF Continued rosuvastatin 10 mg tablet 10 mg PO HS Hold Instructions: Resume on 06/16/23. Following discharge acetaminophen 325 mg tablet 650 mg PO Q4H PRN Held hydrochlorothiazide 25 mg tablet 25 mg PO DAILY Hold Instructions: Resume on 01/16/24. Hold until follow up with PCP and advised to resume Discharge Orders: Discharge Order (Routine); Ordered 01/04/24 Ordered By: Fariba Raza Patient Education: Hypercalcemia (GEN) Additional Instructions: Your calcium has improved to normal while in the hospital. You may need medication to suppress this but Oncology and your PCP can help you to decide. We have held your hydrochlorothiazide (HCTZ). Do not restart this until follow up with your PCP and recommendation to do so. Continue to take potassium twice daily and have your PCP recheck this. You may need this mcc as well. Follow up with Oncology for further assessment and management options. Activity Level: Activity as Tolerated Discharge Diet: High Protein/High Calorie Follow Up Appointments: [facility] [Provider Group] - 01/11/24 (Outpatient follow up ANITA, omental carcinomatosis, lymphadenopathy) Zena Yuan MD [Primary Care Provider] - 01/10/24 11:45 am (Post hospital follow up 5-10 days. ) Forms: [facility] Info Instructions
--- NOTE | 2024-01-04 14:42 | PC.NURSE ---
Pt up independently, denies pain. Tolerates regular diet, denies N/V. IV DC'd, cath tip intact. DC instructions given to pt and daughter, Radha. All questions answered. Pt and daughter understand medication changes and follow instructions. DC'd @ [id number]
== END 2024-01-04 13:10 | disposition home or self-care (01) | DRG 640 ==
LOC: ED 01-03 01:26 → MEDSURG 01-03 01:52
PROVIDERS: Physician Assistant; Admitting Provider Internal Medicine; Emergency Provider Family Medicine; PCP Family Medicine; Visit Provider Internal Medicine
DX: E83.51 Hypocalcemia (principal); E43 Unspecified severe protein-calorie malnutrition; C80.0 Disseminated malignant neoplasm, unspecified; R00.1 Bradycardia, unspecified; I45.10 Unspecified right bundle-branch block; R63.4 Abnormal weight loss; Z68.28 Body mass index [BMI] 28.0-28.9, adult; R61 Generalized hyperhidrosis; E78.5 Hyperlipidemia, unspecified; E11.9 Type 2 diabetes mellitus without complications; Z79.84 Long term (current) use of oral hypoglycemic drugs; I10 Essential (primary) hypertension
CPT/HCPCS: 36415; 71260; 74177; 80048; 80076; 82310; 82330; 82962; 83036; 83735; 83970; 84100; 85025; 85027; 93005; 94761; 97116; 97161; 99285; A9270; J0630; J1650; J1940; J2405; J3475; J3480; J3489; J7030; Q9967

== ENCOUNTER 2024-02-20 14:59 | Inpatient (IN) | payer MEDICARE, OTHER, SELFPAY ==
[2024-02-20 15:15] VITALS: BP 145/55; PULSE 98; RESP 16; TEMP 36.6; O2SAT 98; BMI 28.3
--- NOTE | 2024-02-20 15:21 | ED.GENADULT ---
HPI - General Adult General Time Seen by Provider: 15:21 Date Seen: 02/20/24 Chief complaint: Unspecified Complaint, Adult Stated complaint: High calcium Time Seen by Provider: 02/20/24 15:20 Source: patient and family Mode of arrival: wheelchair Limitations: no limitations History of Present Illness HPI narrative: Dipika is a very pleasant 83-year-old female recent diagnosis of lymphoma and previous history of hypercalcemia who comes to the emergency room at the urging of her oncologist for elevated calcium. Dipika was noted to have had her 1st episode of chemotherapy yesterday. Today she presented and her creatinine had gone from 1.8-2.1 over 24 hours and thus they did not do chemotherapy today but did give her 1 L of fluids. Plan was to have her undergo renal ultrasound tomorrow with follow-up, labs the following day. As she and her daughter were coming back and in [place] received a call that her calcium was elevated greater than 13 and they were told to swing into [facility] to have that corrected. Patient did have hydrochlorothiazide listed in her medications but has since discontinued this medicine after initial diagnosis of hypercalcemia in December 2023. Dipika has been experiencing weakness for quite some time and it does not sound like it ever really improved after correcting her calcium in December when she was diagnosed. At that time she was given fluids and calcitonin. She notes that she is nauseated but has not had any vomiting. She is experiencing constipation. She denies fever chest pain significant abdominal discomfort or fluid retention at this time. She also denies any dysuria. I had the pleasure of speaking with Yesenia her oncologist nurse. Her oncologist is Dr. Nash. Mildly notes that total calcium was elevated and albumin was 3.6. Creatinine was 1.8 on February 18 and 2.1 today. They have concerns regarding tumor lysis syndrome in regards to the calcium. They are also worried about possible obstruction as there was a mention of hydronephrosis on the notes. Patient was supposed to have been started on allopurinol and Yesenia notes that oncology would like her to start that. They also note that she has a Neulasta patch on that they would like her to keep it on as they do expect her counts to drop. This was placed today. Related Data Home Medications ?Medication ?Instructions ?Recorded ?Confirmed hydrochlorothiazide 25 mg tablet 25 mg PO DAILY 06/17/22 01/03/24 rosuvastatin 10 mg tablet 10 mg PO HS 06/17/22 01/03/24 acetaminophen 325 mg tablet 650 mg PO Q4H PRN 01/03/24 01/03/24 rituximab IV 02/20/24 Previous Rx's ?Medication ?Instructions ?Recorded potassium chloride 20 mEq 20 meq PO BID #30 tabs 01/04/24 tablet,extended release Allergies Allergy/AdvReac Type Severity Reaction Status Date / Time metformin Allergy Verified 12/25/23 09:51 morphine Allergy Verified 12/25/23 09:51 niacin Allergy Verified 12/25/23 09:51 Sulfa (Sulfonamide Allergy Verified 12/25/23 09:51 Antibiotics) Review of Systems Status of ROS: Reports: 10 or more systems reviewed and unremarkable except as noted in History and below Const: Reports: change in weight and fatigue; Denies: fever or chills Eyes: Denies: change in vision ENMT: Denies: neck pain, swelling of lips/tongue or nasal congestion Cardio: Denies: chest pain or shortness of breath with exertion Resp: Denies: shortness of breath or cough GI: Reports: nausea and constipation; Denies: abdominal pain or vomiting : Denies: painful urination or urinary frequency Musculo: Denies: neck pain Integ/Breast: Denies: rash Neuro: Denies: headache Endo: Reports: fatigue PFSH [facility] Medical History Vitamin D deficiency (01/19/10) ?E55.9 - Vitamin D deficiency, unspecified (ICD-10) Parotitis (06/02/11) ?K11.20 - Sialoadenitis, unspecified (ICD-10) Adenoma of left adrenal gland (01/19/10) ?D35.02 - Benign neoplasm of left adrenal gland (ICD-10) Diverticulosis (01/19/10) ?K57.90 - Diverticulosis of intestine, part unspecified, without perforation or abscess without bleeding (ICD-10) Cystocele (01/19/10) Hypertension (01/19/10) ?I10 - Essential (primary) hypertension (ICD-10) Hyperlipidemia (01/19/10) ?E78.5 - Hyperlipidemia, unspecified (ICD-10) Diabetes (01/19/10) ?E11.9 - Type 2 diabetes mellitus without complications (ICD-10) Urinary incontinence (01/19/10) ?R32 - Unspecified urinary incontinence (ICD-10) Arthritis (01/19/10) ?M19.90 - Unspecified osteoarthritis, unspecified site (ICD-10) Surgical History 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) ?Z96.651 - Presence of right artificial knee joint (ICD-10) History of hip surgery (08/29/23) ?Z98.890 - Other specified postprocedural states (ICD-10) H/O oophorectomy (01/19/10) History of hysterectomy (01/19/10) ?Z90.710 - Acquired absence of both cervix and uterus (ICD-10) H/O foot surgery (01/19/10) ?Z98.890 - Other specified postprocedural states (ICD-10) Previous back surgery (01/19/10) ?Z98.890 - Other specified postprocedural states (ICD-10) History of facial surgery (01/19/10) ?Z98.890 - Other specified postprocedural states (ICD-10) Hx of cholecystectomy (01/19/10) ?Z90.49 - Acquired absence of other specified parts of digestive tract (ICD-10) Hx of appendectomy (01/19/10) ?Z90.49 - Acquired absence of other specified parts of digestive tract (ICD-10) Social History What is your current living situation?: I presently have a place to live Problems where you live: no known problems Problems where you live details: NA In the past 12 months, utilities in danger of being shut off: no In past 12 months, lack of transportation kept you from medical appts, meetings, work, or getting things needed for daily living: no In the past 12 mos, have been you worried that your food would run out before you had money to buy more?: never true In the past 12 mos, the food you bought just didn't last and you didn't have money to buy more?: never true Highest level of school completed/degree received: high school graduate Smoking Status: Never smoker Second hand tobacco smoke exposure: No How often do you have a drink containing alcohol: never How often do you have six or more drinks on one occasion: Never AUDIT-C Alcohol total score: 0 Non-prescribed substance use: denies use Caffeine: No How often does anyone, including family, friends and others, physically hurt you: never How often does anyone, including family, friends and others, insult or talk down to you: never How often does anyone, including family, friends and others, threaten you with harm: never How often does anyone, including family, friends and others, scream or curse at you: never service: No Exam Narrative: Exam Narrative: Patient is alert and oriented. No acute distress. Mentating normally. EOM is full. Face symmetrical. Speech is normal. Patient does appear fatigued. Heart with a regular rate and rhythm and lungs are clear bilaterally. Abdomen is soft and nontender. Lower extremities without edema. Moving all extremities. Const: Vital Signs, click to edit/add: Vital Signs - 24 hr 02/20/24 15:15 Temperature 97.9 F Pulse Rate [Pulse Oximeter] 98 Respiratory Rate 16 Blood Pressure [Ri ght Upper Arm] 145/55 H Pulse Oximetry 98 Oxygen Delivery Me thod Room Air Documenting provider has reviewed patient's vital signs: yes Course Course ED Course: At this time will recheck labs to include a total calcium, albumin as well as ionized calcium level. In the past patient has noted to have low magnesium and potassium. Have ordered CBC, comprehensive panel, uric acid as well as urinalysis. Vital Signs Vital signs: Initial Vital Signs Temperature 97.9 F 02/20/24 15:15 Temperature Source Temporal Artery Scan 02/20/24 15:15 Pulse Rate 98 02/20/24 15:15 Pulse Rhythm Regular 02/20/24 15:15 Respiratory Rate 16 02/20/24 15:15 Blood Pressure 145/55 H 02/20/24 15:15 Blood Pressure Mean 85 02/20/24 15:15 Blood Pressure Position Sitting 02/20/24 15:15 Pulse Oximetry 98 02/20/24 15:15 Oxygen Delivery Method Room Air 02/20/24 15:15 Vital Signs Temperature 97.9 F 02/20/24 15:15 Pulse Rate 98 02/20/24 15:15 Respiratory Rate 16 02/20/24 15:15 Blood Pressure 145/55 H 02/20/24 15:15 Pulse Oximetry 98 02/20/24 15:15 Oxygen Delivery Method Room Air 02/20/24 15:15 Temperature 97.9 F 02/20/24 15:15 Pulse Rate 98 02/20/24 15:15 Respiratory Rate 16 02/20/24 15:15 Blood Pressure 145/55 H 02/20/24 15:15 Pulse Oximetry 98 02/20/24 15:15 Oxygen Delivery Method Room Air 02/20/24 15:15 Medications Administered Medications: Discontinued Medications Generic Name Dose Route Start Last Admin Trade Name Freq PRN Reason Stop Dose Admin Sodium Chloride 1,000 mls @ 1,000 mls/hr 02/20/24 15:40 02/20/24 17:10 0.9 % Sodium Chloride 1000 Ml IV 02/20/24 16:39 Infused .Q1H AP Infusion Medical Decision Making MDM Narrative Medical decision making narrative: 1. 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 Chemotherapy not done today due to elevated creatinine which went from 1.8-2.1. Patient had been given 1 L of saline. Patient does have Neulasta patch which oncology would like to have her leave in place due to concerns about dropping blood counts. 2. Hypercalcemia-13.8 per Oncology, 13.0 here with ionized level of 1.74. Low normal albumin. Patient given 2 L of normal saline. Further medications per hospitalist. 3. hypomagnesemia-1.3. Hospitalist informed. 4. Anemia-hemoglobin 9.9 with previous value 9.0. 5. Elevated creatinine-creatinine here the ER after 1 L of normal saline at oncology office now 1.6. Yesterday 1.8 at the office and 2.1 earlier today. Patient has very poor appetite and this may be a pre renal process. However, renal ultrasound had been ordered as an outpatient for tomorrow. We may need to have this done inpatient. There was discussion regarding hydronephrosis and concern for obstruction. 6. Diabetes-elevated glucose to 200 today. 7. Disposition-admit under the care of Dr. Madrigal hospitalist. Per my conversation with Yesenia who is the RN working with Dr. [facility], they would like the Neulasta which was placed today to continue. Secondly, patient does have allopurinol prescribed but has not started it and they would like her to start that as soon as possible. This was conveyed to hospitalist. Medical Records Medical records reviewed: Yes I reviewed the patient's medical records Lab Data Lab results reviewed: Yes I reviewed the patient's lab results Labs: Lab Results 02/20/24 02/20/24 Range/Units 16:02 16:59 WBC 6.18 (4.50-11.00) K/uL RBC 3.39 L (4.00-5.20) m/uL Hgb 9.6 L (12.0-16.0) gm/dL Hct 29.7 L (33.0-51.0) % MCV 88 (80-100) fL MCH 28 (26-34) pg MCHC 32 (32-36) gm/dL RDW Coeff of Wlil 13.1 (11.5-15.5) % Plt Count 177 (140-440) K/uL Neut % (Auto) 89.4 H (42.0-72.0) % Lymph % (Auto) 2.8 L (20-44) % [place] % (Auto) 7.3 (0.0-11.0) % Eos % (Auto) 0.0 (0.0-7.0) % Baso % (Auto) 0.2 (0.0-3.0) % Neut # (Auto) 5.50 (1.7-7.0) K/uL Lymph # (Auto) 0.20 L (0.90-2.90) K/uL [place] # (Auto) 0.50 (0.00-0.90) K/UL Eos # (Auto) 0.00 (0.00-0.50) K/uL Baso # (Auto) 0.01 (0.00-0.30) K/uL Abs Immat Gran (auto) 0.02 (0.00-0.30) K/uL Imm/Tot Granulo (auto) 0.3 % Sodium 133 L (135-149) mmol/L Potassium 3.9 (3.6-5.1) mmol/L Chloride 99 (96-114) mmol/L Carbon Dioxide 28 (20-32) mmol/L Anion Gap 6 L (7-15) mEq/L BUN 45 H (7-30) mg/dL Creatinine 1.6 H (0.5-1.5) mg/dL Estimated Creat Clear 21.65 Estimated GFR 32 ml/min Glucose 202 H (60-115) mg/dL Calcium 13.0 H* (8.4-10.6) mg/dL Ionized Calcium [place] 1.74 H (1.11-1.30) mmol/L Magnesium 1.3 L (1.5-2.6) mg/dL Total Bilirubin 0.6 (0.1-1.5) mg/dL AST 23 (12-35) U/L ALT 11 (4-35) U/L Alkaline Phosphatase 62 (40-150) U/L Total Protein 6.0 (6.0-8.3) g/dL Albumin 3.6 (3.3-5.0) g/dL Lipase 107 (23-300) U/L Lab Acknowledgement Test Added ECG Data Attestation: I personally reviewed and interpreted this ECG as follows: Interpretation: EKG by my read shows sinus bradycardia at a rate of 54. CA and. QT intervals within normal limits. Discharge Plan Discharge Clinical Impression: Hypercalcemia, Follicular lymphoma, Anemia Patient Disposition: Admitted As Observation Condition: Improved
--- OUTSIDE RECORDS SUMMARY | 2024-02-20 15:46 | XMS_ITS | Clinical Summary ---
Author Organization [facility] Address [address] [place] [address] Care Team Providers Care Laser Set Up Operator Name Role Phone Zena Yuan MD Primary Care Provider [phone] Allergies Active Allergy Reactions Criticality Noted Date Comments Blood Transfusion Related (Informational Only) Other (See Comments) High 01/22/2024 Patient has a history of a clinically significant antibody against RBC antigens. A delay in compatible RBCs may occur. 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 [address] [place] [phone] Rupesh Denton MD Dennen, Kristina Nguyen, APRN CRNA 01/22/2024 11:36 AM CDT - 01/22/2024 4:29 PM CDT Hospital Encounter [facility] PreOP/Phase II [address] [place] [phone] Helen Escalera MD Carcinomatosis (H) (Primary Dx) Discharge Disposition: Home or Self Care 01/15/2024 10:07 AM CDT - 01/15/2024 11:59 PM CDT Hospital Encounter [facility] [address] [place] [address] Helen Escalera MD Peritoneal carcinomatosis (H) Discharge Disposition: Home or Self Care 01/15/2024 Travel 01/11/2024 Telephone [facility] [address] [place] [address] Keila Liu RN from Last 3 Months Social History Tobacco Use Types Packs/Day Years Used Date Smoking Tobacco: Never Smokeless Tobacco: Never Tobacco Cessation:Counseling Given: Not Answered Alcohol Use Standard Drinks/Week Comments Yes 0 (1 standard drink = 0.6 oz pur e alcohol) Adolescent Education Answer Date Record ed Getting School Help Needed Not on file 01/08 Sex and Gender Information Value Date Recorded Sex Assigned at Not on file Gender Identity Not on file Sexual Orientation Not on file Last Filed Vital Signs Vital Sign Reading Time Taken Comments Blood Pressure 141/60 01/22/2024 4:23 PM CDT Pulse 61 01/22/2024 4:23 PM CDT Temperature 36.2 ??C (97.1 ??F) 01/22/2024 4:23 PM CD T Respiratory Rate 14 01/22/2024 4:23 PM CDT Oxygen Saturation 98% 01/22/2024 4:23 PM CDT Inhaled Oxygen Concentration - - Weight 73 kg (161 lb) 01/22/2024 12:06 PM CDT Height 163.8 cm (5' 4.5) 01/22/2024 12:06 PM CD T Body Mass Index 27.21 01/22/2024 12:06 PM CDT Plan of Treatment Health Maintenance Due Date Last Done Comments ADVANCE CARE PLANNING 1940 ANNUAL REVIEW OF HM ORDERS 1940 DEXA 1940 LIPID 1940 RSV VACCINE ( & 60+) (1 - 1-dose 60+ series) 1999 FALL RISK ASSESSMENT 2004 DTAP/TDAP/TD IMMUNIZATION (2 - Td or Tdap) 06/10/2023 06/10/2013, 01/06/2006 PHQ-2 (once per calendar year) 2023 COVID-19 Vaccine (2022- season) 2023 08/08/2023, 06/25/2022, 02/04/2022, Additional history exists MEDICARE ANNUAL WELLNESS VISIT 04/05/2024 04/05/2023, 03/30/2022, 02/26/2021 Pneumococcal Vaccine: 65+ Years Completed 06/23/2015, 06/28/2010, 07/19/2006, Additional history exists ZOSTER IMMUNIZATION Completed 09/09/2019, 07/11/2019, 06/27/2011, Additional history exists INFLUENZA VACCINE Completed 06/06/2023, , 06/03/2021, Additional history exists HPV IMMUNIZATION Aged Out No longer e ligible based on patient's age to complete this topic IPV IMMUNIZATION Aged Out No longer e ligible based on patient's age to complete this topic MENINGITIS IMMUNIZATION Aged Out No l onger eligible based on patient's age to complete this topic RSV MONOCLONAL ANTIBODY Aged Out No l onger eligible based on patient's age to complete this topic Goals Goal Patient Goal Type Associated Problems Recent Progress Patient-Stated? Author MYC ECC SURG ENROLL Care Plan MyC ECC SURG ENROLL No Camille Torres Procedures Procedure Name Priority Date/Time Associated Diagnosis Comments SURGICAL PATHOLOGY EXAM Routine 01/22/2024 2:18 PM CDT NON-GYNECOLOGIC CYTOLOGY Routine 01/22/2024 2:09 PM CDT ANE AIRWAY ETT PERFORMABLE Routine 01/22/2024 1:18 PM CDT LAPAROSCOPY, SURGICAL, ABDOMEN, PERITONEUM & OMENTUM; DX W/ OR W/O SPECIMEN(S) 01/22/2024 1:08 PM CDT Intra-abdominal and pelvic swelling, mass and lump, unspecified site Special Needs REQ 30 MINUTES ABO/RH TYPE AND SCREEN STAT 01/22/2024 12:15 PM CDT RED CELL ANTIGEN TYPING NON ABO STAT 01/22/2024 12:15 PM CDT ANTIBODY IDENTIFICATION STAT 01/22/2024 12:15 PM CDT TYPE AND SCREEN, ADULT STAT 01/22/2024 12:15 PM CDT HEMOGLOBIN Routine 01/22/2024 12:[address] PARACENTESIS Routine 01/15/2024 11:50 AM CDT Peritoneal carcinomatosis (H) from Last 3 Months Results * (ABNORMAL) Surgical Pathology Exam (01/22/2024 2:18 PM CDT) Case Report Surgical Pathology Report ? Case: [id number] ? Authorizing Provider: ??Helen Escalera MD ? Collected: ? 01/22/2024 02:18 PM ? Ordering Location: ? [facility] ?Received: ?01/22/2024 02:54 PM ? [facility] ? Pathologist: ? Candelaria Powers, ? MD ? Specimen: ?Omentum, Omentum Biopsy ? 02/07/2024 12:47 PM CDT LABORATORY Addendum An addendum is issued, on Dr. Velarde's request, regarding grade of this lesion. Classic follicular lymphoma, as in this case, is low grade. In the most current/recent World Health Organization classification of hematolymphoid tumors (5th edition , 2023) in regard to follicular lymphoma, the prior grading system of grades 1,2 and 3A were noted to have not been reproducible or associated with a statistically significant difference in clinical outcomes and grading is no longer mandatory. This case shows no atypical features and no evidence of high-grade lymphoma. Using the prior grading classification, the feature would be those of a grade 1-2 process. 02/07/2024 12:47 PM CDT LABORATORY Addendum electronically signed by Candelaria Powers MD on 02/07/2024 at 12:47 PM Final Diagnosis Omentum, biopsy -Follicular lymphoma, classical pattern 02/07/2024 12:47 PM [facility] Comment The unexpected finding of a lymphoid malignancy has been relayed to Dr. Escalera via her nurse Sherly on case sign out. 02/07/2024 12:47 PM [facility] Clinical Information Procedure: DIAGNOSTIC LAPAROSCOPY, OMENTAL BIOPSIES, AND EVACUATION OF ASCITES Pre-op Diagnosis: Intra-abdominal and pelvic swelling, mass and lump, unspecified site [R19.00] Post-op Diagnosis: R19.00 - Intra-abdominal and pelvic swelling, mass and lump, unspecified site [ICD-10-CM] 02/07/2024 12:47 PM [facility] Gross Description A(2). Omentum, Omentum Biopsy: The specimen is received in formalin labeled with the patient's name, medical record number and other identifying information and designated omentum biopsy. It consists of a 5.9 cm aggregate of pni-wwus-ksauxd, ragged adipose tissue. Sectioning reveals huff-yellow, lobulated cut surfaces. No definitive tumor is identified. Submitted entirely in 3 cassettes. (Rylee Rooney)01/22/2024 2:59 PM 02/07/2024 12:47 PM [facility] Microscopic Description Evaluation fatty tissue extensively involved by malignant lymphoma with a follicular pattern. A battery of immunohistochemical stains including CD3 (normal background T cells staining), CD5(normal background T cells staining), CD10(positive), CD20(positive), CD21(highlights germinal centers/follicles), CD23(highlights follicles), cyclin D1(negative), SOX11(negative), Bcl-2(positive), and BCL6(positive in follicles) is performed. The findings are those of classical pattern follicular lymphoma. Intradepartmental consultation obtained with agreement 02/07/2024 12:47 PM [facility] MCRS Yes(A) N/A 02/07/2024 12:47 PM [facility] Performing Labs The technical component of this testing was completed at [facility] 02/07/2024 12:47 PM [facility] Case Images 02/07/2024 12:47 PM [facility] Biopsy OMENTUM STRUCTURE / Unknown 01/22/2024 2:18 PM CDT 01/22/2024 2:54 PM CDT Helen PORTER - ALEXANDRA SMITH LABORAT[facility] [address] [place] 1st floor, [address] [place] [address], [facility] [phone] * (ABNORMAL) Cytology, non-gynecologic (01/22/2024 2:09 PM CDT) Final Diagnosis Specimen A: Peritoneal fluid, paracentesis: Interpretation: Atypical. See comment. Other Findings: Abundant population of lymphoid elements. Adequacy: Satisfactory for evaluation. 01/25/2024 2:10 PM CDT LABORATORY Comment The findings should be correlated with the surgical pathology specimen [id number]. 01/25/2024 2:10 PM CDT LABORATORY Clinical Information Peritoneal carcinomatosis, omental carcinomatosis, elevated Ca-125. 01/25/2024 2:10 PM CDT LABORATORY Gross Description A(1). Abdomen, Peritoneal Fluid: Received 90 ml of cloudy, pale orange fluid, processed as one Pap stained Autocyte, one Razo stained cytospin and one hematoxylin and eosin stained cell block. 01/25/2024 2:10 PM CDT LABORATORY Microscopic Description Microscopic examination was performed. 01/25/2024 2:10 PM CDT LABORATORY Abnormal Result? Yes(A) No 01/25/2024 2:10 PM CDT LABORATORY Performing Labs The technical component of this testing was completed at [facility] 01/25/2024 2:10 PM CDT SPECIALTY LABS [place] ABDOMEN / Unknown 01/22/2024 2:09 PM CDT 01/22/2024 2:53 PM CDT Helen SMITH LABORATORY [facility] [address] Lab (1st floor, no room number) [place] [address], [place] [facility] [address] [facility], [address] [phone] * ANE AIRWAY ETT PERFORMABLE (01/22/2024 1:18 PM CDT) Narrative Kenzie Jacinto APRN MOLDED CANDLES WICKER - 01/22/2024 1:18 PM CDT Kenzie Jacinto APRN MOLDED CANDLES WICKER ? 01/22/2024 ??1:31 PM Airway ? Patient location during procedure: OR ? Procedure Start/Stop Times: 01/22/2024 1:18 PM Staff - ? Anesthesiologist: ??Shar See MD ? MOLDED CANDLES WICKER: Kenzie Jacinto APRN MOLDED CANDLES WICKER ? Performed By: CRNAIndications and Patient Condition ? Indications for airway management: franco-procedural ? Induction type:intravenous ? Mask difficulty assessment: 1 - vent by mask Final Airway Details ? Final airway type: endotracheal airway ? Successful airway: ETT - single Endotracheal Airway Details ? ETT size (mm): 7.0 ? Cuffed: yes ? Successful intubation technique: video laryngoscopy ? VL Blade Size: Walker 3 ? Grade View of Cords: 1 ? Adjucts: stylet ? Position: Right ? Measured from: lips ? Secured at (cm): 21 ? Bite block used: Soft Post intubation assessment ? Placement verified by: capnometry, equal breath sounds and chest rise ? Number of attempts at approach: 2 ? Secured with: tape ? Ease of procedure: easy ? Dentition: Intact and Unchanged Medication(s) Administered Medication Administration Time: 01/22/2024 1:18 PM Rupesh Denton MD [place] [facility] * Antibody identification (01/22/2024 12:15 PM CDT) Antibody Identification Anti-Wallace b (Fyb) 01/22/2024 1:34 PM CDT BLOOD BANK SPECIMEN EXPIRATION DATE [id number] 01/22/2024 1:34 PM CDT BLOOD BANK Blood STRUCTURE OF RIGHT HAND / Unknown Venipuncture / Unknown 01/22/2024 12:15 PM CDT 01/22/2024 12:21 PM CDT Helen Escalera MD LAB - BLOOD BANK TE ORDER Performing Organization Address City/Special Care Hospital/ZIP Co de Phone Number BLOOD BANK [address] [place] [address], [facility] * (ABNORMAL) Adult Type and Screen (01/22/2024 12:15 PM CDT) ABO/RH(D) A POS 01/22/2024 11:54 AM CDT BLOOD BANK Antibody Screen Positive(A) Negative 01/22/2024 11:54 AM CDT BLOOD BANK SPECIMEN EXPIRATION DATE [id number] 01/22/2024 11:54 AM CDT BLOOD BANK Blood STRUCTURE OF RIGHT HAND / Unknown Venipuncture / Unknown 01/22/2024 12:15 PM CDT 01/22/2024 12:21 PM CDT Helen Escalera MD LAB - BLOOD BANK TE ORDER Performing Organization Address [facility] Co de Phone Number BLOOD BANK [address] [place] [address], [facility] * Red Cell Antigen Typing Non ABO: (01/22/2024 12:15 PM CDT) Fyb Antigen Type Negative 01/22/2024 4:21 PM CDT BLOOD BANK SPECIMEN EXPIRATION DATE [id number] 01/22/2024 4:21 PM CDT BLOOD BANK Blood STRUCTURE OF RIGHT HAND / Unknown Venipuncture / Unknown 01/22/2024 12:15 PM CDT 01/22/2024 12:21 PM CDT Helen Escalera MD LAB - BLOOD BANK TE ORDER BLOOD BANK [address] [place] [address], [place] * (ABNORMAL) Hemoglobin (01/22/2024 12:15 PM CDT) Hemoglobin 10.3(L) 11.7 - 15.7 g/dL 01/22/2024 12:25 PM CDT LABORATORY Blood STRUCTURE OF RIGHT HAND / Unknown Venipuncture / Unknown 01/22/2024 12:15 PM CDT 01/22/2024 12:21 PM CDT Helen Escalera MD LAB - BLOOD ORDERAB LES LABORATORY [facility] [address] 1[address] floor, [address] [place] [address], [facility] [phone] * CT Paracentesis Initial (01/15/2024 11:50 AM CDT) Anatomical Region Laterality Modality Abdomen/Pelvis Computed Tomogra phy Impressions 01/15/2024 3:18 PM CDT IMPRESSION: 1. No omental mass suitable for CT-guided biopsy. 2. CT guided right lower quadrant paracentesis . DEMETRIUS HUMMEL MD Narrative 01/15/2024 3:18 PM CDT [facility] LOCATION: [facility] CLINICAL HISTORY: Peritoneal carcinomatosis ??. Patient presents for possible omental biopsy versus paracentesis. PROCEDURES PERFORMED: 1. CT guided needle placement for aspiration of peritoneal fluid ADDITIONAL MEDICATIONS: none CONTRAST: none RADIATION DOSE: This CT Scan used dose modulation, iterative reconstruction, and/or weight based dosing when appropriate to reduce radiation dose to as low as reasonably achievable. STERILE BARRIER TECHNIQUE: Maximal Sterile Barrier Technique Utilized: Cap AND mask AND sterile gown AND sterile gloves AND sterile full body drape AND hand hygiene AND skin preparation 2% chlorhexidine for cutaneous antisepsis (or acceptable alternative antiseptics). ?? UNIVERSAL PROTOCOL: Standard universal protocol per facility guidelines was followed. See EMR for documentation. TECHNIQUE: Risks, benefits and alternatives were explained to the patient and written, informed consent was obtained. ??The patient was placed in the supine position on the CT table. The skin entry site was prepped and draped in the usual, sterile fashion. One percent lidocaine was utilized for local anesthesia. ??Under CT guidance an Yueh needle was advanced into the right lower quadrant peritoneal fluid. A total of 700 mL of turbid fluid was removed and sent for the requested lab tests. The needle was removed and the skin entry site was dressed sterilely. The patient tolerated the procedure well and there were no immediate complications. FINDINGS: The preliminary CT images do not demonstrate a omental mass suitable for biopsy. CT scan demonstrates a large amount of perihepatic and right lower quadrant fluid. Images obtained during the procedure show the needle within this collection. Completion images demonstrate no ??post procedural hemorrhage or other complication. Procedure Note Demetrius Hummel MD - 01/15/2024 [facility] LOCATION: [facility] CLINICAL HISTORY: Peritoneal carcinomatosis . Patient presents for possible omental biopsy versus paracentesis. PROCEDURES PERFORMED: 1. CT guided needle placement for aspiration of peritoneal fluid ADDITIONAL MEDICATIONS: none CONTRAST: none RADIATION DOSE: This CT Scan used dose modulation, iterative reconstruction, and/or weight based dosing when appropriate to reduce radiation dose to as low as reasonably achievable. STERILE BARRIER TECHNIQUE: Maximal Sterile Barrier Technique Utilized: Cap AND mask AND sterile gown AND sterile gloves AND sterile full body drape AND hand hygiene AND skin preparation 2% chlorhexidine for cutaneous antisepsis (or acceptable alternative antiseptics). UNIVERSAL PROTOCOL: Standard universal protocol per facility guidelines was followed. See EMR for documentation. TECHNIQUE: Risks, benefits and alternatives were explained to the patient and written, informed consent was obtained. The patient was placed in the supine position on the CT table. The skin entry site was prepped and draped in the usual, sterile fashion. One percent lidocaine was utilized for local anesthesia. Under CT guidance an Yueh needle was advanced into the right lower quadrant peritoneal fluid. A total of 700 mL of turbid fluid was removed and sent for the requested lab tests. The needle was removed and the skin entry site was dressed sterilely. The patient tolerated the procedure well and there were no immediate complications. FINDINGS: The preliminary CT images do not demonstrate a omental mass suitable for biopsy. CT scan demonstrates a large amount of perihepatic and right lower quadrant fluid. Images obtained during the procedure show the needle within this collection. Completion images demonstrate no post procedural hemorrhage or other complication. IMPRESSION: 1. No omental mass suitable for CT-guided biopsy. 2. CT guided right lower quadrant paracentesis . DEMETRIUS HUMMEL MD Helen Escalera MD IMG CT ORDERABLES from Last 3 Months Additional Health Concerns Active Problems Noted Date Diagnosed Date MyC ECC SURG ENROLL 01/17/2024 Care Teams Laser Set Up Operator Relationship Specialty Start Date End Date Zena Yuan MD [address] [place] [address] PCP - General Family Medicine 01/11/24
--- OUTSIDE RECORDS SUMMARY | 2024-02-20 15:47 | XMS_ITS | Clinical Summary ---
Author Organization [facility] Address [address] [place] [address] Care Team Providers Care Supervisory Investigative Specialist Name Role Phone Unavailable Primary Care Provider Unavailabl e Source Comments Patient records contain information from all sites at [facility]. For routine questions regarding patient records, call [phone] during business hours, M-F 8:00 AM - 5:00 PM Central Time. Record requests for emergency care only can be directed to [phone] at any time.[facility] Allergies Active Allergy Reactions Criticality Noted Date [...] Due HZV (ZOSTAVAX) 06/27/2011 Influenza Split 07/02/2012,07/19/2008 PPSV23 06/28/2010 influenza high dose (65 years or [...] PHQ-2) 09/18/2023 Fall Risk Screen (Annual) 09/18/2023 COVID-19 Vaccine (6 - 2022-2 4 season) 2023 08/08/2023, 06/25/2022, 02/04/2022, Additional history exists Pneumococcal vaccine (65+ years) Completed 06/23/2015, 06/28/2010, 07/19/2006, Additional history exists Zoster Vaccines Completed 09/09/2019, 06/19, 06/27/2011, Additional history exists Influenza Vaccine Completed 06/06/2023, , 06/03/2021, Additional history exists Medical Devices Implanted Type Area Deputy Clerk Of Superior Court Device Identifier Shelf Expiration Date Model / Serial / Lot Tmj-Fossa Screw 2.0 X 8mm - Matos [id number] Implanted:Qty: 1 on 04/25/2008 [facility] [place] Prosthesis Left: Other/Legacy - See Implant Description TMJ Implants Description:Device Manufactu rer - [employer] Body Location - Left. Device Status Text - [facility] [id number]. Tmj-Custom Implant - Matos [id number] Implanted:Qty: 1 on 04/25/2008 [facility] [place] Prosthesis Left: Other/Legacy - See Implant Description Other/Legacy - See Implant Description Description:Device Manufactu rer - [facility]. Body Location - Left. Device Status Text - [facility] [id number]. Tmj-Fossa Screw 2.0 X 8mm - Matos [id number] Implanted:Qty: 1 on 04/25/2008 Mis Prosthesis Left: Other/Legacy - See Implant Description TMJ Implants Description:Device Manufactu rer - [employer]. Body Location - Left. Device Status Text - [facility] [id number]. Tmj-Custom Implant - Matos [id number] Implanted:Qty: 1 on 01/20/2017 Mis Prosthesis Other/Legacy - See Implant Description TMJ Implants Description:Device Manufactu rer - [employer] Body Location - Other. Right. Device Status Text - [facility] [id number].
--- OUTSIDE RECORDS SUMMARY | 2024-02-20 15:47 | XMS_ITS | Encounter Summary ---
Author Organization [facility] Address [address] [place] [address] Care Team Providers Care Sound Editor Name Role Phone Zena Yuan MD Primary Care Provider [phone] Encounter Details Date Type Department Care Team (Latest Contact Info) Description 01/15/2024 Travel Social History Tobacco Use Types Packs/Day Years Used Date Smoking Tobacco: Never Assessed Adolescent Education Answer Date Record ed Getting School Help Needed Not on file 01/08 Sex and Gender Information Value Date Recorded Sex Assigned at Not on file Gender Identity Not on file Sexual Orientation Not on file documented as of this encounter Plan of Treatment Not on file documented as of this encounter Visit Diagnoses Not on filedocumented in this encounter Care Teams Sound Editor Relationship Specialty Start Date End Date [place] [address] [address] PCP - General Family Medicine 01/11/24 documented as of this encounter
--- OUTSIDE RECORDS SUMMARY | 2024-02-20 15:47 | XMS_ITS | Referral Summary ---
Author Organization [facility] Address [address] [place] [address] Care Team Providers Care Material Handling Crew Supervisor Name Role Phone Unavailable Primary Care Provider Unavailabl e Source Comments Patient records contain information from all sites at [facility]. For routine questions regarding patient records, call [phone] during business hours, M-F 8:00 AM - 5:00 PM Central Time. Record requests for emergency care only can be directed to [phone] at any time.[facility] Allergies Active Allergy Reactions Criticality Noted [...] on file Medical Devices Implanted Type Area Arcade Technician Device Identifier Shelf Expiration Date Model / Serial / Lot Tmj-Fossa Screw 2.0 X 8mm - Matos [id number] Implanted:Qty: 1 [place] 04/25/[place] [facility] Left: Other/Legacy - See Implant Description TMJ Implants Description:Device Manufactu rer - [employer] Body Location - Left. Device Status Text - [facility] [id number]. Tmj-Custom Implant - Matos [id number] Implanted:Qty: 1 on 04/25/2008 Mis Prosthesis Left: Other/Legacy - See Implant Description Other/Legacy - See Implant Description Description:Device Manufactu rer - [facility]. Body Location - Left. Device Status Text - [facility] [id number]. Tmj-Fossa Screw 2.0 X 8mm - Matos [id number] Implanted:Qty: 1 on 04/25/2008 Mis Prosthesis Left: Other/Legacy - See Implant Description TMJ Implants Description:Device Manufactu rer - [employer]. Body Location - Left. Device Status Text - [facility] [id number]. Tmj-Custom Implant - Matos [id number] Implanted:Qty: 1 on 01/20/2017 [facility] Other/Legacy - See Implant Description TMJ Implants Description:Device Manufactu rer - [employer]. Body Location - Other. Right. Device Status Text - [facility] [id number].
--- OUTSIDE RECORDS SUMMARY | 2024-02-20 15:47 | XMS_ITS | Encounter Summary ---
Author Organization [facility] Address [address] [place] [id number] Care Team Providers Care Studio Associate Name Role Phone Zena Yuan MD Primary Care Provider Reason for Visit * Auth/Cert Specialty Diagnoses / Procedures Referred By Wyatt boucher Referred To Contact Surgery Diagnoses Intra-abdominal and pelvic swelling, mass and lump, unspecified site Intra-abdominal and pelvic swelling, mass and lump, unspecified site [R19.00] Procedures IA LAPAROSCOPY, SURGICAL, ABDOMEN, PERITONEUM & OMENTUM; DX W/ OR W/O SPECIMEN(S) DIAGNOSTIC LAPAROSCOPY, ABDOMINAL BIOPSIES Periop Services [address] [place] [address] Referral ID Status Reason Start Date Expiration Date Visits Re quested Visits Authorized [id number] 1 1 Encounter Details Date Type Department Care Team (Late st Contact Info) Description 01/22/2024 1:10 PM CDT - 01/22/2024 2:40 PM CDT Surgery [facility] [address] [place] [address] Helen Escalera MD [facility] [id number] [facility] [address] [place], [place] [id number] DIAGNOSTIC LAPAROSCOPY, OMENTAL BIOPSIES, AND EVACUATION OF ASCITES Surgery Details Date/Time Status Location OR Service Patient Class Case Class Case Type Trauma Case? 01/22/24 1:10 PM Posted OR OR M 23 Gynecology Oncology Same Day Surgery Elective Panel 1 Procedure LRB Anes Op Region Wound Class Comments DIAGNOSTIC LAPAROSCOPY, OMEN NIDA BIOPSIES, AND EVACUATION OF ASCITES N/A General Abdomen I-Clean Surgeon Surgeon Role Service Panel Helen Escalera MD Primary Gynecology Oncolog y 1 Special Needs REQ 30 MINUTES documented in this encounter Social History Tobacco Use Types Packs/Day Years [...] on file documented as of this encounter Last Filed Vital Signs Vital Sign Reading Time Taken Comments Blood Pressure 142/58 01/22/2024 12:06 PM CDT Pulse 77 01/22/2024 12:06 PM CDT Temperature 36.4 ??C (97.6 ??F) 01/22/2024 12:06 PM C DT Respiratory Rate 16 01/22/2024 12:06 PM CDT Oxygen Saturation 98% 01/22/2024 12:06 PM CDT Inhaled Oxygen Concentration - - Weight 73 kg (161 lb) 01/22/2024 12:06 PM CDT Height 163.8 cm (5' 4.5) 01/22/2024 12:06 PM CD T Body Mass Index 27.21 01/22/2024 12:06 PM CDT documented in this encounter Discharge Instructions * Discharge Instructions* Barber Pendleton RN - 01/22/2024 3:09 PM CDT Same Day Surgery Discharge Instructions for Sedation and General Anesthesia It's not unusual to feel dizzy, light-headed or faint for up to 24 hours after surgery or while taking pain medication. If you have these symptoms: sit for a few minutes before standing and have someone assist you when you get up to walk or use the bathroom. You should rest and relax for the next 24 hours. We recommend you make arrangements to have an adult stay with you for at least 24 hours after your discharge. Avoid hazardous and strenuous activity. DO NOT DRIVE any vehicle or operate mechanical equipment for 24 hours following the end of your surgery. Even though you may feel normal, your reactions may be affected by the medication you have received. Do not drink alcoholic beverages for 24 hours following surgery. Slowly progress to your regular diet as you feel able. It's not unusual to feel nauseated and/or vomit after receiving anesthesia. If you develop these symptoms, drink clear liquids (apple juice, laly sweta, broth, 7-up, etc. ) until you feel better. If your nausea and vomiting persists for 24 hours, please notify your surgeon. All narcotic pain medications, along with inactivity and anesthesia, can cause constipation. Drinking plenty of liquids and increasing fiber intake will help. For any questions of a medical nature, call your surgeon. Do not make important decisions for 24 hours. If you had general anesthesia, you may have a sore throat for a couple of days related to the breathing tube used during surgery. You may use Cepacol lozenges to help with this discomfort. If it worsens or if you develop a fever, contact your surgeon. If you feel your pain is not well managed with the pain medications prescribed by your surgeon, please contact your surgeon's office to let them know so they can address your concerns. If you have questions or concerns about your procedure, call Dr. Escalera at [phone] documented in this encounter Medications at Time of Discharge Medication Sig Dispensed Refills Start Date End Date Acetaminophen 325 MG CAPS Take 325-650 mg by mouth every 4 hours as needed potassium chloride ER (K-TAB) 20 MEQ CR tablet Take 20 mEq by mouth rosuvastatin (CRESTOR) 20 MG tablet Take 20 mg by mouth daily documented as of this encounter Progress Notes * Helen Escalera MD - 01/21/2024 9:47 AM CDT GYNECOLOGIC ONCOLOGY CONSULT Patient Name: KENDAL PELAYO Patient : 1940 Patient Referring Physician: Primary GYNOncologist: Helen Escalera (Gynecological/Oncology) Date of Service: 01/17/2024 This visit was provided via telemedicine with the use of real-time audio and video. The patient hasverbally consented to do this visit via telemedicine. The patient participated in this visit. [place], am located in the [facility]. The visit started at 01:45 PM and completed at 02:05 PM. Total time spent on theday of service is 35 minutes including time spent reviewing records, telemedicine visit with the patient, preparing orders, and documentation. 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 Bar is a kiesha 83 yo postmenopausal female (hx of hypertension, hyperlipidemia, diabetes, cystocele, parotitis) here today for evaluation and consultation on recently discovered peritoneal carcinomatosis. Recent tumor markers include CA-125 = 1068, CA-19-9 = 8, and CEA = 0.9 on 01/10/2024. A CT scan of the chest/abdomen/pelvis w/ IV contrast from 01/03/2024 noted peritoneal carcinomatosis, omental carcinomatosis, peritoneal nodularity with thickening and mild enhancement, mild to moderate pelvic ascites. This was from ER visit & subsequent hospital admission in [place], [place]. She has had a hysterectomy in her 30's and believes it was a BSO and everything was removed. She has no family history of any cancers. At ER visit, she noted unintentional weight loss of ~50 pounds and generally not feeling well and noting fatigue since her knee replacement surgery in May 2023. She had seen a few doctors over this time and had encouraged her to drink Ensure. She normally [place] in [place] [facility] [place], [place]. She also has a [place]. Her brother recently . She lives in [place], [place] the remainder of the year. Oncology Treatment Summary: 01/03/2024: Presented to [facility] for unintentional weight loss, fatigue, etc. CT chest/abdomen/pelvis w/ IV contrast noted diffuse adenopathy (likely metastatic), omental carcinomatosis, peritoneal nodularity with thickening and mild enhancement, mild to moderate pelvic ascites. 01/10/2024: Tumor markers with Ca-125 = 1068 (elevated), CEA = 0.9 (normal) & Ca 19-9 = 8 (normal). 01/15/2024: IR biopsy requested. Patient presented to [facility] & did not feel there was a safe window due to bowel. Paracentesis of 700 cc performed. Lab called and was unable to run cytology as not enough fluid (only had 12 cc in the lab). 01/17/2024: Gynecologic oncology consultation (video visit) with Dr. Escalera to discuss definitive tissue biopsies & high clinical suspicion of ovarian carcinoma. Will proceed to OR on Sunday 01/21 for diagnostic laparoscopy, abdominal biopsies. Will also see if can get portacath placement at same time. Discussed neoadjuvant chemotherapy + consideration of interval debulking if ovarian carcinoma is confirmed. If malignancy of another primary site is diagnosed, would refer patient to appropriate oncology team. Genetic Testing N/A Review of Systems: A complete 14-point review of systems is negative except as noted in the above history of present illness. 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 Postmenopausal Allergies# NKA Medications: Miscellaneous Drug 1 All medications are currently on hold per patient 01/16 Family History: No family history of cancers. Of note, her son-in-law is a colon Ca patient at [facility]. Social History: She is a never smoker. She denies any alcohol use. She lives alone in [facility] and has extended family for support. She has 4 children, 7 grandchildren, and 14 great grandchildren. She is a high school graduate. Health Maintenance: Last pap smear: No longer indicated secondary to her age. Has history of normal Pap smear. Last mammogram: 2020 Last colonoscopy: Cannot recall the date of the last one but had one in the past. Vital Signs: Blood pressure: , Pulse: , Temperature: , Respirations: , O2 sat: , Pain Scale: , Height: , Weight:, BSA: , BMI: Vital signs not obtained secondary to nature of video visit. 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 Laboratory Data: Recent tumor markers to include CA-125 was at 1068, CA-19-9 was at 8, and CEA was at 0.9 on 01/10/2024. Imaging: CT scan of paracentesis was performed on 01/15/2024: IMPRESSION: 1. No omental mass suitable for CT-guided biopsy. 2. CT guided right lower quadrant paracentesis . CT scan of chest, abdomen, and pelvis was performed on 01/03/2024: IMPRESSION: I. Diffuse adenopathy likely metastatic. 2. Omental carcinomatosis. 3. Peritoneal nodularity with thickening and mild enhancement. 4. Mild to moderate pelvic ascites. 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 83 yo postmenopausal female with newly discovered peritoneal carcinomatosis, omental carcinomatosis, diffuse adenopathy and elevated CA-125. Also unintentional weight loss of 50 pounds. Discussed with patient the high level of concern for malignancy. Requested IR biopsy and this was unable to be performed on 01/15/2024 given that, there was close proximity to bowel and removed 700 cc of ascites. This unfortunately was not able to be tested as thelab only received a small amount of ascites. Discussed with patient the need for a tissue diagnosis, which can confirm malignancy and delineate the primary site. She is adamant that she had a complete and total hysterectomy in her 30s. She is wondering if it ismore likely to be a non-gynecologic origin. We discussed proceeding to the operating room for direct laparoscopic view and biopsies all at the same time. I have added her on for Monday01/22/2024. Patient and family are very happy that this could be accommodated so quickly. Will also see if a central port could be placed at the same time by an appropriate surgeon. Patientwould be amenable to this. Reviewed recent tumor markers to include CA-125 was at 1068, CA-19-9 was at 8, and CEA was at 0.9 on 01/10/2024. We reviewed other sites as possible primaries. Discussed her tumor marker profile & abnormal CA-125. Discussed a high index of suspicion for a gynecologic malignancy. Discussed if we determine this as an ovarian cancer, she will qualify for germline genetic testing. We discussed neoadjuvant chemotherapy with q21 day cycles via central port combined with interval open surgery that would consist of a tumor debulking. Discussed that we would plan for neoadjuvant chemo if we detect a gynecologic malignancy. Given theCT findings, her 50-pound weight loss, and her overall symptomatology we would then consider an interval debulking based on her response and her overall functional status. [facility] location is most convenient for her and her family. We can always have her do her chemotherapy at that location and I could send her to Dr. Dubose for the chemotherapy portion of her treatment plan. Patient and family were very grateful for the very quick add-on and surgery and tissue diagnosis. All questions were answered today 2. Medical comorbidities Personal hx of hypertension, hyperlipidemia, diabetes, cystocele, parotitis) 3. Preoperative considerations Diagnosis Code: R19 Surgery: diagnostic laparoscopy, abdominal biopsies Estimated Total Time: 30 minutes Anesthesia: GENERAL Alert Pathology for Frozen Section: NO Bowel Prep: NO Joint Case: NO Patient Status: Same-Day Discharge Preoperative Clearance Visit: YES Labs on Day of Surgery: T&S & Hgb Surgical Antibiotic Prophylaxis: IV Cefazolin 2 grams + IV Metronidazole 500 milligrams VTE Prophylaxis: SQ Heparin 5,000 units + bilateral SCDs Additional Considerations: will see if central port could be placed at the same time with an appropriate surgeon Treatment Plan and Consent Current treatment plan of definitive tissue biopsies for work-up of abnormal findings and high suspicion for advanced ovarian cancer was reviewed in detail with the patient. See counseling above. Specifically, the counseling included: goals of the treatment, prognosis, frequency, intended benefits,associated risks/harms and side effects and medically reasonable alternatives. I spent a total of 35 minutes of cumulative time in care of this patient, which included >50% oftime spent in direct patient care which included patient interview & treatment counseling via video visit. The remainder of the time was spent in medical documentation, review of records and carecoordination. I provided the patient an opportunity to ask questions and I answered all of their treatment related questions to the best of my ability. The patient expressed understanding and consent to this plan of care. Pain Care Management: Pain Scale: Not recorded on visit The patient and family/friends if present were apprised of the use of [employer] remote documentationservice and all parties consented to conducting the visit in this manner. Documentation assistance provided by candis Manzanares for Helen Escalera MD on 01/17/2024. I, Helen Escalera MD, personally performed the services described in this documentation, and it is both accurate and complete. Helen Escalera MD Copy to: FAX Zena Yuan MD documented in this encounter Nursing Notes * Barber Pendleton RN - 01/22/2024 3:59 PM CDT Pt dressed, up in recliner and transported to Phase 2. documented in this encounter Miscellaneous Notes * Brief Op Note - Helen Escalera MD - 01/22/2024 2:50 PM CDT POST OPERATIVE NOTE-IMMEDIATE : Procedures: Procedure(s): DIAGNOSTIC LAPAROSCOPY, OMENTAL BIOPSIES, AND EVACUATION OF ASCITES (1650 ml) Preoperative Diagnosis: Intra-abdominal and pelvic swelling, mass and lump, unspecified site [R19.00] Postoperative Diagnosis: Same Prosthetic Devices: None Surgeon(s) and Assistants (if any): Surgeon(s): Helen Escalera MD Diesel Truck Technician: Guillermina Gutiérrez RN Relief Diesel Truck Technician: Eneida Ortiz RN Scrub Person: Nora Arias Anesthesia: General Estimated Blood Loss: 5 cc IV Fluids: 800 ml crystalloid Urine Output: N/A Ascites: 1650 ml cloudy serous-colored ascites evacuated Drains: None Specimens: ID Type Source Tests Collected by Time Destination 1 : Abdominal Ascites Washings Abdomen NON-GYNECOLOGIC CYTOLOGY Helen Escalera MD 01/22/2024 2:09 PM 2 : Omentum Biopsy Biopsy Omentum SURGICAL PATHOLOGY EXAM Helen Escalera MD 01/22/2024 2:18 PM Complications: None Findings/Conclusions: On laparoscopy, there was copious amount of cloudy, serous-colored ascites mostly concentrated in Lizama's pouch. There was extensive omental carcinomatosis and carcinomatosisalong bowel. This created tethered loops of small bowel to the anterior abdominal wall. The anatomywas severely distorted. The pelvis was mostly frozen by thickened omental adhesions and bowel. The right side of the pelvis appeared to have surgically absent adnexa. The left pelvic was not visualized secondary to sigmoid colon and adhesions. There was peritoneal studding. The root of the small bowel mesentery appeared to have involvement with overall disease process. The liver edge and spleen edge appeared overall healthy. The stomach appeared without evidence of tumor. However, the lesser omentum was retracted and involved by omental caking. Bilateral diaphragms were incompletely visualized. The right side was obscured by ascites and the left side was obliterated by loops of bowel and omental adhesions. Condition on discharge from OR: Satisfactory Helen Escalera MD Gynecologic Oncology [place] [facility] * Op Note - Helen Escalera MD - 01/22/2024 1:52 PM CDT Gynecologic Oncology Operative Report DATE OF PROCEDURE: 01/22/2024 PATIENT NAME: Kendal Pelayo PATIENT PREOPERATIVE DIAGNOSIS: Peritoneal carcinomatosis, omental carcinomatosis, elevated Ca-125 POSTOPERATIVE DIAGNOSIS: Same PROCEDURES: Procedure(s): DIAGNOSTIC LAPAROSCOPY, OMENTAL BIOPSIES, AND EVACUATION OF ASCITES SURGEON: Helen Escalera MD BACK TENDER PULP DRIER: There were no qualified assistants available to assist in the case. ANESTHESIA: General endotracheal. ESTIMATED BLOOD LOSS: 5 cc IV FLUIDS: 800 cc crystalloid URINE OUTPUT: N/A INDICATIONS: 83 yo postmenopausal female (hx of hypertension, hyperlipidemia, diabetes, cystocele, parotitis) here today for evaluation and consultation on recently discovered peritoneal carcinomatosis. Recent tumor markers include CA-125 = 1068, CA-19-9 = 8, and CEA = 0.9 on 01/10/2024. A CT scan of the chest/abdomen/pelvis w/ IV contrast from 01/03/2024 noted peritoneal carcinomatosis, omental carcinomatosis, peritoneal nodularity with thickening and mild enhancement, mild to moderatepelvic ascites. This was from ER visit & subsequent hospital admission in [place], [place]. She has had a hysterectomy in her 30's and believes it was a BSO and everything was removed. She has no family history of any cancers. At ER visit, she noted unintentional weight loss of ~50 pounds and generally not feeling well and noting fatigue since her knee replacement surgery in May 2023. Meghan seen a few doctors over this time and had encouraged her to drink Ensure. Oncology Treatment Summary: 01/03/2024: Presented to [facility] for unintentional weight loss, fatigue, etc. CT chest/abdomen/pelvis w/ IV contrast noted diffuse adenopathy (likely metastatic), omental carcinomatosis, peritoneal nodularity with thickening and mild enhancement, mild to moderate pelvic ascites. 01/10/2024: Tumor markers with Ca-125 = 1068 (elevated), CEA = 0.9 (normal) & Ca 19-9 = 8 (normal). 01/15/2024: IR biopsy requested. Patient presented to [facility] & did not feel there was a safe window due to bowel. Paracentesis of 700 cc performed. Lab called and was unable to run cytology as not enough fluid (only had 12 cc in the lab). 01/17/2024: Gynecologic oncology consultation (video visit) with Dr. Escalera to discuss definitive tissue biopsies & high clinical suspicion of ovarian carcinoma. Will proceed to OR on Sunday 01/21 for diagnostic laparoscopy, abdominal biopsies. Discussed neoadjuvant chemotherapy + consideration of i nterval debulking if ovarian carcinoma is confirmed. If malignancy of another primary site is diagnosed, would refer patient to appropriate oncology team. FINDINGS: On laparoscopy, there was copious amount of cloudy, serous-colored ascites mostly concentrated in Lizama's pouch. There was extensive omental carcinomatosis and carcinomatosis along bowel. This created tethered loops of small bowel to the anterior abdominal wall. The anatomy was severely distorted. The pelvis was mostly frozen by thickened omental adhesions and bowel. The right side of the pelvis appeared to have surgically absent adnexa. The left pelvic was not visualized secondaryto sigmoid colon and adhesions. There was peritoneal studding. The root of the small bowel mesentery appeared to have involvement with overall disease process. The liver edge and spleen edge appearedoverall healthy. The stomach appeared without evidence of tumor. However, the lesser omentum was retracted and involved by omental caking. Bilateral diaphragms were incompletely visualized. The rightside was obscured by ascites and the left side was obliterated by loops of bowel and omental adhesions. SPECIMENS: ID Type Source Tests Collected by Time Destination 1 : Abdominal Ascites Washings Abdomen NON-GYNECOLOGIC CYTOLOGY Helen Escalera MD 01/22/2024 2:09 PM 2 : Omentum Biopsy Biopsy Omentum SURGICAL PATHOLOGY EXAM Helen Escalera MD 01/22/2024 2:18 PM CONDITION: Stable to PACU. OPERATIVE PROCEDURE IN DETAIL: Consent was reviewed with the patient in the preoperative setting and confirmed. She received prophylactic antibiotics with IV Cefazolin 2 grams and IV Metronidazole 500 milligrams. In addition, she received prophylactic SQ Heparin 5,000 units and bilateral sequentialcompression devices for venous thromboembolism prevention. A surgical debriefing was performed withthe operating room team prior to patient entry into the operating room. The patient was transferredto the operating room and placed in dorsal supine position. General anesthetic was obtained in the usual manner without noted difficulties. The patient was then positioned onto Krishna stirrups. The pat ient was prepped and draped for the above-mentioned procedure. A Valencia catheter was NOT placed. Timeout was called at which point the patient's name, procedure and operative site was confirmed bythe operative team. The umbilicus was elevated and the Veress needle introduced through the base ofthe umbilicus with an opening pressure of 2 mmHg. The abdomen was insufflated and changed to high-flow of 15 mmHg for continued insufflation. The Veress needle was removed. A 12 mm supraumbilical skin incision was made with a scalpel after injection of local analgesia at the site. A12 mm trocar wasinserted. A laparoscopic survey was performed with findings noted above. There were no issues belowumbilical Veress attempt. The patient was placed in reverse Trendelenburg. A total of 5 mm skin incisions x 4 were made. Two 5 mm trocars were placed under direct visualization on patient's right side in an area clear of adhesions. A total of 30 cc of 0.5% bupivacaine with 1:200,000 epinephrine wasinjected for local analgesia prior to all skin incisions. Abdominal ascites was collected and sent to surgical cytology for review. There was a total of 1650 ml of cloudy, serous-colored ascites that was evacuated and ~1250 ml sent to surgical cytology. An abdominal and pelvic survey was completed and noted in findings above. An area of infracolic omentum near the spleen was biopsied using a laparoscopic Ligasure device. Anarea of infracolic omentum was adherent to the right pelvic sidewall. This was the second omental biopsy that was taken. Both biopsies were placed together in one specimen cup and labeled as omentalbiopsies. There was good hemostasis noted at the end of the surgery. The midline umbilical 12 mm port fascia was closed using a Anders-Darcie device with excellent re-approximation. The remaining 5 mm trocars were removed without any issues. The skin incisions were re-approximated with 4-0 Monocryl sutures and sealed with Dermabond. There were no qualified assistants available to assist in the case. All sponge, lap, needle and instrument counts were correct x 2. The patient tolerated the procedurewell and there were no complications. She was returned to the supine position and general anesthesia was reversed without difficulty. She was taken to the recovery room in stable condition. I was present and scrubbed the entire procedure. Helen Escalera MD Gynecologic Oncology [place] [facility] 01/22/2024 documented in this encounter Plan of Treatment Not on file documented as of this encounter Goals Goal Patient Goal Type Associated Problems Recent Progress Patient-Stated? Author MYC ECC SURG ENROLL Care Plan MyC ECC SURG ENROLL No Camille Torres documented as of this encounter Procedures Procedure Name Priority Date/Time Associated Diagnosis Comments SURGICAL PATHOLOGY EXAM Routine 01/22/2024 2:18 PM CDT NON-GYNECOLOGIC CYTOLOGY Routine 01/22/2024 2:09 PM CDT LAPAROSCOPY, SURGICAL, ABDOMEN, PERITONEUM & OMENTUM; DX W/ OR W/O SPECIMEN(S) 01/22/2024 1:08 PM CDT Intra-abdominal and pelvic swelling, mass and lump, unspecified site Special Needs REQ 30 MINUTES ANTIBODY IDENTIFICATION STAT 01/22/2024 12:15 PM CDT TYPE AND SCREEN, ADULT STAT 01/22/2024 12:15 PM CDT RED CELL ANTIGEN TYPING NON ABO STAT 01/22/2024 12:15 PM CDT HEMOGLOBIN Routine 01/22/2024 12:15 PM CDT ABO/RH TYPE AND SCREEN STAT 01/22/2024 12:15 PM CDT documented in this encounter Results * (ABNORMAL) Surgical Pathology Exam (01/22/2024 2:18 PM CDT) Case Report Surgical Pathology Report ? Case: [id number] ? Authorizing Provider: ??Helen Escalera MD ? Collected: ? 01/22/2024 02:18 PM ? Ordering Location: ? [facility] ?Received: ?01/22/2024 02:54 PM ? [facility] ? Pathologist: ? Candelaria Powers, ? MD ? Specimen: ?Omentum, Omentum Biopsy ? 02/07/2024 12:47 PM [facility] Addendum An addendum is issued, on [...] a grade 1-2 process. 02/07/2024 12:47 PM [facility] Addendum electronically signed by Candelaria Powers MD on 02/07/2024 at 12:47 PM Final Diagnosis Omentum, biopsy -Follicular lymphoma, classical pattern 02/07/2024 12:47 PM [facility] Comment The unexpected finding of a lymphoid malignancy has been relayed to Dr. Escalera via her nurse Sherly on case sign out. 02/07/2024 12:47 PM [facility] Clinical Information Procedure: DIAGNOSTIC LAPAROSCOPY, OMENTAL BIOPSIES, AND EVACUATION OF ASCITES Pre-op Diagnosis: Intra-abdominal and pelvic swelling, mass and lump, unspecified site [R19.00] Post-op Diagnosis: R19.00 - Intra-abdominal and pelvic swelling, mass and lump, unspecified site [ICD-10-CM] 02/07/2024 12:47 PM [facility] Gross Description A(2). Omentum, Omentum Biopsy: The specimen is received in formalin labeled with the patient's name, medical record number and other identifying information and designated omentum biopsy. It consists of a 5.9 cm aggregate of [id number], ragged adipose tissue. Sectioning reveals huff-yellow, lobulated cut surfaces. No definitive tumor is identified. Submitted entirely in 3 cassettes. (Rylee Rooney)01/22/2024 2:59 PM 02/07/2024 12:47 PM CDT LABORATORY Microscopic Description Evaluation fatty tissue extensively [...] consultation obtained with agreement 02/07/2024 12:47 PM CDT LABORATORY MCRS Yes(A) N/A 02/07/2024 12:47 PM CDT LABORATORY Performing Labs The technical component of this testing was completed at [facility] 02/07/2024 12:47 PM CDT LABORATORY Case Images 02/07/2024 12:47 PM CDT LABORATORY Biopsy OMENTUM STRUCTURE / Unknown 01/22/2024 2:18 PM CDT 01/22/2024 2:54 PM CDT Helen Escalera MD [facility] Acute Care Lab [address] 1[address] floor, [address] [place] [address], [facility] [phone] * (ABNORMAL) Cytology, non-gynecologic (01/22/2024 2:09 PM CDT) Final Diagnosis Specimen A: Peritoneal fluid, paracentesis: Interpretation: Atypical. See comment. Other Findings: Abundant population of lymphoid elements. Adequacy: Satisfactory for evaluation. 01/25/2024 2:10 PM CDT LABORATORY Comment The findings should be correlated with the surgical pathology specimen [id number]. 01/25/2024 2:10 PM CDT LABORATORY Clinical Information [...] component of this testing was completed at [facility] 01/25/2024 2:10 PM CDT SPECIALTY LABS [place] ABDOMEN / Unknown 01/22/2024 2:09 PM CDT 01/22/2024 2:53 PM CDT Helen Escalera MD [facility] Acute Care Lab [address] [facility] (1st floor, no room number) [place] [address], [facility] Specialty Lab [address], [address] [place] [address] * Red Cell Antigen Typing Non ABO: (01/22/2024 12:15 PM CDT) Fyb Antigen Type Negative 01/22/2024 4:21 PM CDT BLOOD BANK SPECIMEN EXPIRATION DATE [id number] 01/22/2024 4:21 PM CDT BLOOD BANK Blood STRUCTURE OF RIGHT HAND / Unknown Venipuncture / Unknown 01/22/2024 12:15 PM CDT 01/22/2024 12:21 PM CDT Helen Escalera MD LAB - BLOOD BANK TE ORDER BLOOD BANK [address] [phone], [facility] * Antibody identification (01/22/2024 12:15 PM CDT) Antibody Identification Anti-Wallace b (Fyb) 01/22/2024 1:34 PM CDT BLOOD BANK SPECIMEN EXPIRATION DATE [id number] 01/22/2024 1:34 PM CDT BLOOD BANK Blood STRUCTURE OF RIGHT HAND / Unknown Venipuncture / Unknown 01/22/2024 12:15 PM CDT 01/22/2024 12:21 PM CDT Helen Escalera MD LAB - BLOOD BANK [facility] ORDER BLOOD BANK [address] [phone], [facility] * (ABNORMAL) Adult Type and Screen (01/22/2024 12:15 PM CDT) ABO/RH(D) A POS 01/22/2024 11:54 AM CDT BLOOD BANK Antibody Screen Positive(A) Negative 01/22/2024 11:54 AM CDT BLOOD BANK SPECIMEN EXPIRATION DATE [id number] 01/22/2024 11:54 AM CDT BLOOD BANK Blood STRUCTURE OF RIGHT HAND / Unknown Venipuncture / Unknown 01/22/2024 12:15 PM CDT 01/22/2024 12:21 PM CDT Helen Escalera MD LAB - BLOOD BANK TE ORDER BLOOD BANK [address] [phone], [facility] * (ABNORMAL) Hemoglobin (01/22/2024 12:15 PM CDT) Hemoglobin 10.3(L) 11.7 - 15.7 g/dL 01/22/2024 12:25 PM CDT LABORATORY Blood STRUCTURE OF RIGHT HAND / Unknown Venipuncture / Unknown 01/22/2024 12:15 PM CDT 01/22/2024 12:21 PM CDT Helen Escalera MD LAB - BLOOD ORDERAB LES LABORATORY [facility] Acute Care Lab [address], [address] [place] [address], [facility] [phone] documented in this encounter Visit Diagnoses Diagnosis Peritoneal carcinomatosis (H)- Primary Malignant neoplasm of peritoneum, unspecified Carcinomatosis (H) Disseminated malignant neoplasm Omental mass Other specified disorder of peritoneum Intra-abdominal and pelvic swelling, mass and lump, unspecified site documented in this encounter Administered Medications Inactive Administered Medications - up to 3 most recent administrations Medication Order MAR Action Action Date Dose Rate Site BUPivacaine 0.5 % - EPINEPHrine 1:200,000 injection PRN, Starting on Mon01/22/24 at 1441, Intra-procedure $Given 01/22/2024 2:41 PM CDT 30 mLs Operative Site/Surgical Site heparin ANTICOAGULANT injection 5,000 Units 5,000 Units, Subcutaneous, PRE-OP/PRE-PROCEDURE, Starting on Mon01/22/24 at 1153, For 1 dose, Verify order with [employer]ary Bar Operator provider prior to Administering. High concentration heparin. Not for line flush or cath care., Pre-procedure $Given 01/22/2024 12:28 PM CDT 5,000 Units metroNIDAZOLE (FLAGYL) infusion 500 mg Routine, 500 mg, Intravenous, PRE-OP/PRE-PROCEDURE, Starting on Mon01/22/24 at 1153, For 1 dose, Administer so dose is COMPLETED within 1 hour PRIOR to incision., Indications: Perioperative Pharmacoprophylaxis, Pre-procedure $New Bag 01/22/2024 12:45 PM CDT 500 mg skin closure adhesive (DERMABOND) vial PRN, Starting on Mon01/22/24 at 1436, Intra-procedure $Given 01/22/2024 2:36 PM CDT 1 applicator Operative Site/Surgical Site sodium chloride 0.9% irrigation (bag) PRN, Starting on Mon01/22/24 at 1402, Intra-procedure $Given 01/22/2024 2:02 PM CDT 1,000 mLs Operative Site/Surgical Site documented in this encounter Active and Recently Administered Medications Times are shown in CDT. Scheduled Medication Order 01/20/2024 01/21/2024 01/22/2024 ceFAZolin Sodium (ANCEF) injection 2 g (COMPLETED) Routine, 2 g, Intravenous, PRE-OP/PRE-PROCEDURE, Starting on 01/22/24 at 1153, For 1 dose, Give first dose within 1 hour PRIOR to incision. If patient weight is greater than or equal to 120 kg increase dose to 3 g., Indications: Perioperative Pharmacoprophylaxis, Pre-procedure 1329 ($Given - Provi henna: Kenzie Jacinto APRN CRNA) heparin ANTICOAGULANT injection 5,000 Units (COMPLETED) 5,000 Units, Subcutaneous, PRE-OP/PRE-PROCEDURE, Starting on 01/22/24 at 1153, For 1 dose, Verify order with [employer]ary Bar Operator provider prior to Administering. High concentration heparin. Not for line flush or cath care., Pre-procedure 1228 ($Given - Provi henna: Kijnal Hartley RN) metroNIDAZOLE (FLAGYL) infusion 500 mg (COMPLETED) Routine, 500 mg, Intravenous, PRE-OP/PRE-PROCEDURE, Starting on Mon01/22/24 at 1153, For 1 dose, Administer so dose is COMPLETED within 1 hour PRIOR to incision., Indications: Perioperative Pharmacoprophylaxis, Pre-procedure 1245 ($New Bag - Pro vider: Kinjal Hartley RN) Continuous Medication Order 01/20/2024 01/21/2024 01/22/2024 lactated ringers infusion (CANCELED) at 10 mL/hr, Intravenous, CONTINUOUS, IF patient NOT on dialysis., Pre-procedure, Starting on Mon01/22/24 at 1230, Until Mon01/22/24 at 1451 1230 (Canceled Entry - Provider: Orders Generic Provider - Comment: Automatically canceled at discontinue of medication order)1308 ($New Bag - Provider: Kenzie Jacinto APRN CRNA)1456 (Anesthesia Volume Adjustment - Provider: Kenzie Jacinto APRN CRNA) PRN Medication Order 01/20/2024 01/21/2024 01/22/2024 acetaminophen (TYLENOL) tablet 650 mg 650 mg, Oral, ONCE PRN, mild pain, to moderate pain, Starting on Mon01/22/24 at 1505, One time prior to discharge. Maximum acetaminophen dose from all sources = 75 mg/kg/day not to exceed 4 grams/day. BUPivacaine 0.5 % - EPINEPHrine 1:200,000 injection (CANCELED) PRN, Starting on Mon01/22/24 at 1441, Intra-procedure 1441 ($Given - Provi henna: Helen Escalera MD) oxyCODONE (ROXICODONE) tablet 5 mg 5 mg, Oral, ONCE PRN, other, pain control or improvement in physical function.??, Starting on Mon01/22/24 at 1505, For 1 dose, Notify provider to assess for uncontrolled pain or analgesic side effects. skin closure adhesive (DERMABOND) vial (CANCELED) PRN, Starting on Mon01/22/24 at 1436, Intra-procedure 1436 ($Given - Provi henna: Helen Escalera MD) sodium chloride 0.9% irrigation (bag) (CANCELED) PRN, Starting on Mon01/22/24 at 1402, Intra-procedure 1402 ($Given - Provi henna: Helen Escalera MD) documented in this encounter Additional Health Concerns Active Problems Noted Date Diagnosed Date MyC ECC SURG ENROLL 01/17/2024 documented as of this encounter Care Teams Studio Associate Relationship Specialty Start Date End Date Zena Yuan MD [address] [place] [address] PCP - General Family Medicine 01/11/24 documented as of this encounter
--- OUTSIDE RECORDS SUMMARY | 2024-02-20 15:47 | XMS_ITS | Encounter Summary ---
Author Organization [place] Address [address] [place] [id number] Care Team Providers Care Engine Hostler Name Role Phone Zena Yuan MD Primary Care Provider Reason for Visit * Auth/Cert Specialty Diagnoses / Procedures Referred By Wyatt boucher Referred To Contact Surgery Diagnoses Intra-abdominal and pelvic swelling, mass and lump, unspecified site Intra-abdominal and pelvic swelling, mass and lump, unspecified site [R19.00] Procedures CA LAPAROSCOPY, SURGICAL, ABDOMEN, PERITONEUM & OMENTUM; DX W/ OR W/O SPECIMEN(S) DIAGNOSTIC LAPAROSCOPY, ABDOMINAL BIOPSIES Periop Services [address], [address] [place] [address] Referral ID Status Reason Start Date Expiration Date Visits Re quested Visits Authorized [id number] 1 1 Encounter Details Date Type Department Care Team (Late st Contact Info) Description 01/22/2024 11:36 AM CDT - 01/22/2024 4:29 PM CDT Hospital Encounter [facility] PreOP/Phase II [address] [place] [address] Helen Escalera MD [facility] [address] [facility] [address] [place], [place] [id number] Carcinomatosis (H) (Primary Dx) Discharge Disposition: Home or Self Care Social History Tobacco Use Types Packs/Day Years [...] about your procedure, call Dr. Escalera at [phone] documented in this encounter Medications at Time [...] patient is located in their home in [place], [place], and IDr. Escalera, am located in the [facility]. The visit started at 01:45 PM and completed at 02:05 PM. Total time spent on theday of service is 35 minutes including time spent reviewing records, telemedicine visit with the patient, preparing orders, and documentation. 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 Bar is a kiesha 83 [...] ER visit & subsequent hospital admission in [place], [place]. She has had a hysterectomy in [...] to drink Ensure. She normally [place] in [place] on the [facility] [place], [place]. She also has a son [place] that [place] able to visit. Her brother recently . She lives in [place], [place] the remainder of the year. Oncology Treatment Summary: 01/03/2024: Presented to [place] ER for unintentional weight loss, fatigue, etc. CT chest/abdomen/pelvis w/ IV contrast noted diffuse adenopathy (likely metastatic), omental carcinomatosis, peritoneal nodularity with thickening and mild enhancement, mild to moderate pelvic ascites. 01/10/2024: Tumor markers with Ca-125 = 1068 (elevated), CEA = 0.9 (normal) & Ca 19-9 = 8 (normal). 01/15/2024: IR biopsy requested. Patient presented to [facility] & did not feel there was a [...] Surgical History: Hysterectomy with reported BSO in 30's Right knee replacement Hip surgery Back surgery Facial surgery Cholecystectomy Appendectomy financial planning assistant History: x 4 Menarche age x. Postmenopausal Allergies# NKA Medications: Miscellaneous Drug 1 All medications are currently on hold per patient 01/16 Family History: No family history of cancers. Of note, her son-in-law is a colon Ca patient at [facility]. Social History: She is a never smoker. She denies any alcohol use. She lives alone in [facility] and has extended family for support. She [...] to nature of video visit. Physical Exam (Mail Delivery Supervisor Oncology): General: The remainder of the physical [...] ascites. Problems: Peritoneal carcinomatosis Assessment & Plan (Mail Delivery Supervisor Oncology): 1. 83 yo postmenopausal female with [...] her response and her overall functional status. [facility] location is most convenient for her and [...] present were apprised of the use of [employer] remote documentationservice and all parties consented to [...] Assistants (if any): Surgeon(s): Helen Escalera MD Geospatial Image Analyst: Guillermina Gutiérrez RN Relief Geospatial Image Analyst: Eneida Ortiz RN Scrub Person: Nora Arias [...] OR: Satisfactory Helen Escalera MD Gynecologic Oncology [place] [facility] * Op Note - Helen Escalera MD - 01/22/2024 1:52 PM CDT Gynecologic Oncology Operative Report DATE OF PROCEDURE: 01/22/2024 PATIENT NAME: Kendal Pelayo PATIENT PREOPERATIVE DIAGNOSIS: Peritoneal carcinomatosis, omental carcinomatosis, elevated Ca-125 POSTOPERATIVE DIAGNOSIS: Same PROCEDURES: Procedure(s): DIAGNOSTIC LAPAROSCOPY, OMENTAL BIOPSIES, AND EVACUATION OF ASCITES SURGEON: Helen Escalera MD GENERAL SERVICE TECHNICIAN: There were no qualified assistants available to [...] ER visit & subsequent hospital admission in [place], [place]. She has had a hysterectomy in her 30's and believes it was a BSO and everything was removed. She has no family history of any cancers. At ER visit, she noted unintentional weight loss of ~50 pounds and generally not feeling well and noting fatigue since her knee replacement surgery in May 2023. Shehad seen a few doctors over this time and had encouraged her to drink Ensure. Oncology Treatment Summary: 01/03/2024: Presented to [place] ER for unintentional weight loss, fatigue, etc. CT chest/abdomen/pelvis w/ IV contrast noted diffuse adenopathy (likely metastatic), omental carcinomatosis, peritoneal nodularity with thickening and mild enhancement, mild to moderate pelvic ascites. 01/10/2024: Tumor markers with Ca-125 = 1068 (elevated), CEA = 0.9 (normal) & Ca 19-9 = 8 (normal). 01/15/2024: IR biopsy requested. Patient presented to [facility] & did not feel there was a [...] entire procedure. Helen Escalera MD Gynecologic Oncology [place] On[facility] 01/22/2024 documented in this encounter Plan of [...] Case Report Surgical Pathology Report ? Case: [id number] ? Authorizing Provider: ??Helen Escalera, ? Collected: ? 01/22/2024 02:18 PM ? Ordering Location: ? [facility] ?Received: ?01/22/2024 02:54 PM ? [facility] ? Pathologist: ? Gio, Candelaria Jackson, ? MD ? Specimen: ?Omentum, Omentum Biopsy ? 02/07/2024 12:47 PM [facility] Addendum An addendum is issued, on [...] a grade 1-2 process. 02/07/2024 12:47 PM [facility] Addendum electronically signed by Candelaria Powers MD on 02/07/2024 at 12:47 PM Final Diagnosis Omentum, biopsy -Follicular lymphoma, classical pattern 02/07/2024 12:47 PM [facility] Comment The unexpected finding of a lymphoid malignancy has been relayed to Dr. Escalera via her nurse Sherly on case sign out. 02/07/2024 12:47 PM [facility] Clinical Information Procedure: DIAGNOSTIC LAPAROSCOPY, OMENTAL BIOPSIES, AND EVACUATION OF ASCITES Pre-op Diagnosis: Intra-abdominal and pelvic swelling, mass and lump, unspecified site [R19.00] Post-op Diagnosis: R19.00 - Intra-abdominal and pelvic swelling, mass and lump, unspecified site [ICD-10-CM] 02/07/2024 12:47 PM [facility] Gross Description A(2). Omentum, Omentum Biopsy: The specimen is received in formalin labeled with the patient's name, medical record number and other identifying information and designated omentum biopsy. It consists of a 5.9 cm aggregate of [id number], ragged adipose tissue. Sectioning reveals huff-yellow, lobulated cut surfaces. No definitive tumor is identified. Submitted entirely in 3 cassettes. (Ryleetravis Rooney)01/22/2024 2:59 PM 02/07/2024 12:47 PM [facility] Microscopic Description Evaluation fatty tissue [...] component of this testing was completed at [facility] 02/07/2024 12:47 PM CDT LABORATORY Case Images 02/07/2024 12:47 PM CDT LABORATORY Biopsy OMENTUM STRUCTURE / Unknown 01/22/2024 2:18 PM CDT 01/22/2024 2:54 PM CDT Helen Escalera MD LAB - [facility] [address] 1[address] floor, [address] [place] [address], [facility] [phone] * (ABNORMAL) Cytology, non-gynecologic (01/22/2024 2:09 PM CDT) Final Diagnosis Specimen A: Peritoneal fluid, paracentesis: Interpretation: Atypical. See comment. Other Findings: Abundant population of lymphoid elements. Adequacy: Satisfactory for evaluation. 01/25/2024 2:10 PM CDT LABORATORY Comment The findings should be correlated with the surgical pathology specimen [id number]. 01/25/2024 2:10 PM CDT LABORATORY Clinical Information [...] component of this testing was completed at [facility] 01/25/2024 2:10 PM CDT SPECIALTY LABS [place] ABDOMEN / Unknown 01/22/2024 2:09 PM CDT 01/22/2024 2:53 PM CDT Helen Escalera MD LAB - [facility] Lab [address] [facility] (1st floor, no room number) [place] [address], [facility] Specialty Lab [address] [facility], [address] [place] [address], [facility] * Red Cell Antigen Typing Non ABO: (01/22/2024 12:15 PM CDT) Pathologist [facility] Fyb Antigen Type Negative 01/22/2024 4:21 PM CDT BLOOD BANK SPECIMEN EXPIRATION DATE [id number] 01/22/2024 4:21 PM CDT BLOOD BANK Blood STRUCTURE OF RIGHT HAND / Unknown Venipuncture / Unknown 01/22/2024 12:15 PM CDT 01/22/2024 12:21 PM CDT Helen Escalera MD LAB - BLOOD BANK TE ST ORDER BLOOD BANK [address] [place] [address], [facility] * Antibody identification (01/22/2024 12:15 PM CDT) Antibody Identification Anti-Wallace b (Fyb) 01/22/2024 1:34 PM CDT BLOOD BANK SPECIMEN EXPIRATION DATE [id number] 01/22/2024 1:34 PM CDT BLOOD BANK Blood STRUCTURE OF RIGHT HAND / Unknown Venipuncture / Unknown 01/22/2024 12:15 PM CDT 01/22/2024 12:21 PM CDT Helen Escalera MD LAB - BLOOD BANK TE ST ORDER Performing Organization Address City/[facility]/ZIP Co de Phone Number BLOOD BANK [address] [place] [address], [facility] * (ABNORMAL) Adult Type and Screen (01/22/2024 12:15 PM CDT) ABO/RH(D) A POS 01/22/2024 11:54 AM CDT BLOOD BANK Antibody Screen Positive(A) Negative 01/22/2024 11:54 AM CDT BLOOD BANK SPECIMEN EXPIRATION DATE [id number] 01/22/2024 11:54 AM CDT BLOOD BANK Blood STRUCTURE OF RIGHT HAND / Unknown Venipuncture / Unknown 01/22/2024 12:15 PM CDT 01/22/2024 12:21 PM CDT Helen Escalera MD LAB - BLOOD BANK TE ST ORDER Performing Organization Address City/[facility]/ZIP Co de Phone Number BLOOD BANK [address] [place] [address], [facility] * (ABNORMAL) Hemoglobin (01/22/2024 12:15 PM CDT) Hemoglobin 10.3(L) 11.7 - 15.7 g/dL 01/22/2024 12:25 PM CDT LABORATORY Blood STRUCTURE OF RIGHT HAND / Unknown Venipuncture / Unknown 01/22/2024 12:15 PM CDT 01/22/2024 12:21 PM CDT Helen Escalera MD LAB - BLOOD ORDERAB LES LABORATORY [facility] [address] floor, [address] [place] [address], [facility] [phone] documented in this encounter Visit Diagnoses Diagnosis Peritoneal carcinomatosis (H)- Primary Malignant neoplasm of peritoneum, unspecified Carcinomatosis (H) Disseminated malignant neoplasm Omental mass Other specified disorder of peritoneum documented in this encounter Administered Medications Inactive Administered Medications - up to 3 most recent administrations Medication Order MAR Action Action Date Dose Rate Site heparin ANTICOAGULANT injection 5,000 Units 5,000 Units, Subcutaneous, PRE-OP/PRE-PROCEDURE, Starting on Mon01/22/24 at 1153, For 1 dose, Verify order with Communication Lecturer provider prior to Administering. High concentration heparin. Not for line flush or cath care., Pre-procedure $Given 01/22/2024 12:28 PM CDT 5,000 Units metroNIDAZOLE (FLAGYL) infusion 500 mg Routine, 500 mg, Intravenous, PRE-OP/PRE-PROCEDURE, Starting on Mon01/22/24 at 1153, For 1 dose, Administer so dose is COMPLETED within 1 hour PRIOR to incision., Indications: Perioperative Pharmacoprophylaxis, Pre-procedure $New Bag 01/22/2024 12:45 PM CDT 500 mg documented in this encounter Active and Recently Administered Medications Times are shown in CDT. Scheduled Medication Order 01/20/2024 01/21/2024 01/22/2024 ceFAZolin Sodium (ANCEF) injection 2 g (COMPLETED) Routine, 2 g, Intravenous, PRE-OP/PRE-PROCEDURE, Starting on Mon01/22/24 at 1153, For 1 dose, Give first dose within 1 hour PRIOR to incision. If patient weight is greater than or equal to 120 kg increase dose to 3 g., Indications: Perioperative Pharmacoprophylaxis, Pre-procedure 1329 ($Given - Provi henna: Kenzie Jacinto APRN CRNA) heparin ANTICOAGULANT injection 5,000 Units (COMPLETED) 5,000 Units, Subcutaneous, PRE-OP/PRE-PROCEDURE, Starting on Mon01/22/24 at 1153, For 1 dose, Verify order with Communication Lecturer provider prior to Administering. High concentration heparin. Not for line flush or cath care., Pre-procedure 1228 ($Given - Provi henna: Kinjal Hartley RN) metroNIDAZOLE (FLAGYL) infusion 500 mg [...] ($New Bag - Provider: Kenzie Jacinto APRN FOOD SERVICE AMBASSADOR)[id number] (Anesthesia Volume Adjustment - Provider: Kenzie Jacinto [...] documented as of this encounter Care Teams Engine Hostler Relationship Specialty Start Date End Date Zena Yuan MD [address] [address] PCP - General Family Medicine 01/11/24 documented as of this encounter
--- OUTSIDE RECORDS SUMMARY | 2024-02-20 15:47 | XMS_ITS | Encounter Summary ---
Author Organization [facility] Address [address] [place] [address] Care Team Providers Care Medical Manager Name Role Phone Zena Yuan MD Primary Care Provider Reason for Visit * Auth/Cert Specialty Diagnoses / Procedures Referred By Wyatt boucher Referred To Contact Surgery Diagnoses Intra-abdominal and pelvic swelling, mass and lump, unspecified site Intra-abdominal and pelvic swelling, mass and lump, unspecified site [R19.00] Procedures [place] LAPAROSCOPY, SURGICAL, ABDOMEN, PERITONEUM & OMENTUM; DX W/ OR W/O SPECIMEN(S) DIAGNOSTIC LAPAROSCOPY, ABDOMINAL BIOPSIES Periop Services [address] [place] [address] Referral ID Status Reason Start Date Expiration Date Visits Re quested Visits Authorized [id number] 1 1 Encounter Details Date Type Department Care Team (Late st Contact Info) Description 01/22/2024 1:08 PM CDT Anesthesia Event [facility] PeriOP Services [address], [address] [place] [address] Rupesh Denton MD [facility] ANESTHESIA [address] [address] Jazzy Edwards APRN BARBER [address] [address] Anesthesia Record Procedure Summary Procedure Name Responsible Anesthesiologist Anesthesia Start Time Anesthesia Stop Time DIAGNOSTIC LAPAROSCOPY, OMENTAL BIOPSIES, AND EVACUATION OF ASCITES (Abdomen) Rupesh Denton MD 01/22/24 1308 01/22/24 1456 Events Date Time Event Comment 01/22/2024 1208 BARBER Ready for Procedure 1234 1308 An Start 1309 An Start Data 1309 AN REASSESS I attest that I have identified and re-evaluated the patient immediately before the induction of anesthesia and I am satisfied that the anesthetic plan is suitable for the patient's condition and procedure. The first vital signs recorded are pre- induction. Jazzy Edwards APRN BARBER 1310 MD Present 1312 An Induction 1317 MD Present 1318 An Intubation 1327 Anesthesia Ready for Procedu re 1352 AN INCISION 1431 MD Present 1446 AN Extubation All extubation criteria met prior to removal. 1446 MD Present 1449 an stop data 1456 An Stop Electronically signed by Orville Espino APRN CRNA on January 22, 2024 2:56 PM Meds Name Total fentaNYL 50 mcg/mL 100 mcg lidocaine 2% 100 mg propofol 10 mg/mL 442 mg rocuronium 10 mg/mL 40 mg dexamethasone (DECADRON) 4 mg/mL 4 mg ondansetron 2 mg/mL 4 mg glycopyrrolate 0.2 mg/mL 0.6 mg neostigmine 1 mg/mL 3 mg ceFAZolin Sodium (ANCEF) injection 2 g 2 g metroNIDAZOLE (FLAGYL) infusion 500 mg 0 mg lactated ringers infusion 800 mL * Agents Name O2 N2O Air Exp Sevoflurane Exp Isoflurane Exp Desflurane Ins Sevoflurane Ins Isoflurane Ins Desflurane * Blood No blood administrations on file. Lines, Drains, and Airways Type Details Placement Removal Incision/Surgical Site 01/22/24; 1438; Abdomen; PORT SITES X 5 01/22/24 1438 by Guillermina Gutiérrez RN Peripheral IV 01/22/24; 1231; 20 G ; Left; Hand; Chlorhexidine; None; Tolerated well 01/22/24 1231 by Kinjal Hartley RN 01/22/24 1605 by Barber Pendleton, CHRISTEN ETT Placement Date: 01/22/24; Placement Time: 1318 (created via procedure documentation); Mask Ventilation: 1; Induction Type: Intravenous; Ease of Intubation: Easy; Technique: Video laryngoscopy; Tube Size: 7 mm; VL Blade Size: Walker 3; Grade View: 1; Adjucts: Stylet; Placement Person: BARBER; Attempts: 2 01/22/24 1318 by Kenzie Jacinto APRN CRNA 01/22/24 1446 by Kenzie Jacinto APRN CRNA documented in this encounter Social History Tobacco Use Types Packs/Day Years Used Date Smoking Tobacco: Never Smokeless Tobacco: Never Alcohol Use Standard Drinks/Week Comments Yes 0 (1 standard drink = 0.6 oz pur e alcohol) Adolescent Education Answer Date Record ed Getting School Help Needed Not on file 01/08 Sex and Gender Information Value Date Recorded Sex Assigned at Not on file Gender Identity Not on file Sexual Orientation Not on file documented as of this encounter OR Notes * Anesthesia Postprocedure Evaluation - Oma Suarez - 01/22/2024 4:00 PM CDT Patient: Dipika Franco Procedure: Procedure(s): DIAGNOSTIC LAPAROSCOPY, OMENTAL BIOPSIES, AND EVACUATION OF ASCITES Anesthesia Type: General Note: Disposition: Admission Postop Pain Control: Uneventful Sign Out: Well controlled pain PONV: No Neuro/Psych: Uneventful Sign Out: Acceptable/Baseline neuro status Airway/Respiratory: Uneventful Sign Out: Acceptable/Baseline resp. status CV/Hemodynamics: Uneventful Sign Out: Acceptable CV status Other NRE: DID A NON-ROUTINE EVENT OCCUR? No Last vitals: Vitals Value Taken Time BP 138/61 01/22/24 1545 Temp 36.6 ??C (97.8 ??F) 01/22/24 1530 Pulse 55 01/22/24 1548 Resp 11 01/22/24 1548 SpO2 97 % 01/22/24 1548 Vitals shown include unfiled device data. Electronically Signed By: Oma Suarez January 22, 2024 4:00 PM * Anesthesia Procedure Notes - Kenzie Jacinto APRN CRNA - 01/22/2024 1:29 PM CDTAssociated Order(s): Airway Airway Patient location during procedure: OR Procedure Start/Stop Times: 01/22/2024 1:18 PM Staff - Anesthesiologist: Shar See MD BARBER: Kenzie Jacinto APRN CRNA Performed By: CRNAIndications and Patient Condition Indications for airway management: franco-procedural Induction type:intravenous Mask difficulty assessment: 1 - vent by mask Final Airway Details Final airway type: endotracheal airway Successful airway: ETT - single Endotracheal Airway Details ETT size (mm): 7.0 Cuffed: yes Successful intubation technique: video laryngoscopy VL Blade Size: Walker 3 Grade View of Cords: 1 Adjucts: stylet Position: Right Measured from: lips Secured at (cm): 21 Bite block used: Soft Post intubation assessment Placement verified by: capnometry, equal breath sounds and chest rise Number of attempts at approach: 2 Secured with: tape Ease of procedure: easy Dentition: Intact and Unchanged Medication(s) Administered Medication Administration Time: 01/22/2024 1:18 PM * Anesthesia Preprocedure Evaluation - Rupesh Denton MD - 01/22/2024 12:31 PM CDT Anesthesia Pre-Procedure Evaluation Patient: Dipika Franco : 1940 Procedure : Procedure(s): DIAGNOSTIC LAPAROSCOPY, ABDOMINAL BIOPSIES Past Medical History: Diagnosis Date ??? Adrenal adenoma ??? Conduction disorder of the heart ??? DDD (degenerative disc disease), cervical ??? Diabetes mellitus (H) ??? DJD (degenerative joint disease) of knee ??? Female stress incontinence ??? Intra-abdominal and pelvic swelling, mass and lump, unspecified site ??? Migraine ??? Pseudoarthrosis of lumbar spine ??? Pyuria ??? Sagittal plane imbalance Past Surgical History: Procedure Laterality Date ??? APPENDECTOMY ??? CHOLECYSTECTOMY ??? CYSTOCELE REPAIR ??? HYSTERECTOMY ??? LUMBAR FUSION ??? tmj arthotomy ??? TUBAL LIGATION ??? vestibule mouth Allergies Allergen Reactions ??? Metformin Nausea ??? Niacin Hives ??? Sulfa Antibiotics Hives Social History Tobacco Use ??? Smoking status: Never ??? Smokeless tobacco: Never Substance Use Topics ??? Alcohol use: Yes Wt Readings from Last 1 Encounters: 01/22/24 73 kg (161 lb) Anesthesia Evaluation Pt has had prior anesthetic. Type: General. No history of anesthetic complications ROS/MED HX ENT/Pulmonary: (-) tobacco use, asthma and sleep apnea Neurologic: (-) no CVA and no TIA Cardiovascular: (+) Dyslipidemia hypertension- - - - - (-) pacemaker, stent, pacemaker and ICD METS/Exercise Tolerance: 3 - Able to walk 1-2 blocks without stopping Hematologic: Musculoskeletal: Comment: History of C3-4 fusion (+) arthritis, GI/Hepatic: (-) GERD Renal/Genitourinary: Comment: History of adrenal adenoma (-) renal disease Endo: (+) type II DM (Now resolved), (-) obesity Psychiatric/Substance Use: (+) psychiatric history anxiety and depression Infectious Disease: - neg infectious disease ROS Malignancy: Comment: Peritoneal carcinomatosis Other: Physical Exam Airway Mallampati: II TM distance: > 3 FB Neck ROM: full Mouth opening: > 3 cm Respiratory Devices and Support Dental (+) Multiple visibly decayed, broken teeth Cardiovascular cardiovascular exam normal Pulmonary pulmonary exam normal OUTSIDE LABS: CBC: Lab Results Component Value Date HGB 10.3 (L) 01/22/2024 BMP: No results found for: NA, POTASSIUM, CHLORIDE, CO2, BUN, CR, GLC COAGS: No results found for: PTT, INR, FIBR POC: No results found for: BGM, HCG, HCGS HEPATIC: No results found for: ALBUMIN, PROTTOTAL, ALT, AST, GGT, ALKPHOS, BILITOTAL,BILIDIRECT, SAV OTHER: No results found for: PH, LACT, A1C, CHARLES, PHOS, MAG, LIPASE, AMYLASE, TSH,T4, T3, CRP, SED Anesthesia Plan ASA Status: 2 NPO Status: NPO Appropriate Anesthesia Type: General. - Airway: ETT Induction: Propofol. Maintenance: Balanced. Techniques and Equipment: - Airway: Video-Laryngoscope Consents Anesthesia Plan(s) and associated risks, benefits, and realistic alternatives discussed. Questions answered and patient/retail customer service representative(s) expressed understanding. - Discussed: - Discussed with: Patient Postoperative Care Pain management: IV analgesics. PONV prophylaxis: Ondansetron (or other 5HT-3), Dexamethasone or Solumedrol Comments: Other Comments: Discussed risk pertaining to her loose teeth. Advised that there is a chance that with intubation/extubation of knocking out teeth. Patient understands the risks and wishes to proceed. Wu Evans MD I have reviewed the pertinent notes and labs in the chart from the past 30 days and (re)examined the patient. Any updates or changes from those notes are reflected in this note. # Overweight: Estimated body mass index is 27.21 kg/m?? as calculated from the following: Height as of this encounter: 1.638 m (5' 4.5). Weight as of this encounter: 73 kg (161 lb). documented in this encounter Miscellaneous Notes * Anesthesia Care Transfer Note - Kenzie Jacinto APRN CRNA - 01/22/2024 2:55 PM CDT Patient: Dipika Franco Procedure: Procedure(s): DIAGNOSTIC LAPAROSCOPY, OMENTAL BIOPSIES, AND EVACUATION OF ASCITES Diagnosis: Intra-abdominal and pelvic swelling, mass and lump, unspecified site [R19.00] Diagnosis Additional Information: No value filed. Anesthesia Type: General Note: Oropharynx: oropharynx clear of all foreign objects Level of Consciousness: awake Oxygen Supplementation: room air Independent Airway: airway patency satisfactory and stable Dentition: dentition unchanged Vital Signs Stable: post-procedure vital signs reviewed and stable Report to RN Given: handoff report given Patient transferred to: PACU Handoff Report: Identifed the Patient, Identified the Reponsible Provider, Reviewed the pertinent medical history, Discussed the surgical course, Reviewed Intra-OP anesthesia mangement and issues during anesthesia, Set expectations for post-procedure period and Allowed opportunity for questions andacknowledgement of understanding Vitals: Vitals Value Taken Time BP 127/66 01/22/24 1452 Temp Pulse 71 01/22/24 1455 Resp 19 01/22/24 1455 SpO2 96 % 01/22/24 1455 Vitals shown include unfiled device data. Electronically Signed By: Orville Espino APRN CRNA January 22, 2024 2:55 PM documented in this encounter Plan of Treatment Not on file documented as of this encounter Goals Goal Patient Goal Type Associated Problems Recent Progress Patient-Stated? Author MYC ECC SURG ENROLL Care Plan MyC ECC SURG ENROLL No Camille Torres documented as of this encounter Procedures Procedure Name Priority Date/Time Associated Diagnosis Comments ANE AIRWAY ETT PERFORMABLE Routine 01/22/2024 1:18 PM CDT documented in this encounter Results * ANE AIRWAY ETT PERFORMABLE (01/22/2024 1:18 PM CDT) Narrative Kenzie Jacinto APRN BARBER - 01/22/2024 1:18 PM CDT Kenzie Jacinto APRN BARBER ? 01/22/2024 ??1:31 PM Airway ? Patient location during procedure: OR ? Procedure Start/Stop Times: 01/22/2024 1:18 PM Staff - ? Anesthesiologist: ??Shar See MD ? BARBER: Kenzie Jacinto APRN CRNA ? Performed By: CRNAIndications and Patient Condition [...] Time: 01/22/2024 1:18 PM Rupesh Denton MD [place] ANESTHESIA documented in this encounter Visit Diagnoses Not on filedocumented in this encounter Administered Medications Inactive Administered Medications - up to 3 most recent administrations Medication Order MAR Action Action Date Dose Rate Site ceFAZolin Sodium (ANCEF) injection 2 g Routine, 2 g, Intravenous, PRE-OP/PRE-PROCEDURE, Starting on Mon01/22/24 at 1153, For 1 dose, Give first dose within 1 hour PRIOR to incision. If patient weight is greater than or equal to 120 kg increase dose to 3 g., Indications: Perioperative Pharmacoprophylaxis, Pre-procedure $Given 01/22/2024 1:29 PM CDT 2 g dexAMETHasone (DECADRON) injection Intravenous, PRN, Administer over 1 Minutes, Starting on Mon01/22/24 at 1338, Anesthesia Intra-op $Given 01/22/2024 1:38 PM CDT 4 mg fentaNYL (PF) (SUBLIMAZE) injection Intravenous, PRN, Administer over 3-5 Minutes, Starting on Mon01/22/24 at 1312, Anesthesia Intra-op $Given 01/22/2024 2:19 PM CDT 25 mcg $Given 01/22/2024 2:09 PM CDT 25 mcg $Given 01/22/2024 1:12 PM CDT 50 mcg glycopyrrolate (ROBINUL) injection Intravenous, PRN, Administer over 1-2 Minutes, Starting on Mon01/22/24 at 1440, Anesthesia Intra-op $Given 01/22/2024 2:40 PM CDT 0.6 mg lactated ringers infusion at 10 mL/hr, Intravenous, CONTINUOUS, IF patient NOT on dialysis., Pre-procedure, Starting on Mon01/22/24 at 1230, Until Mon01/22/24 at 1451 $New Bag 01/22/2024 1:08 PM CDT lidocaine 2% injection (MDV) Intravenous, PRN, Starting on Mon01/22/24 at 1312, Anesthesia Intra-op $Given 01/22/2024 1:12 PM CDT 100 mg neostigmine (PROSTIGMINE) injection Intravenous, PRN, Starting on Mon01/22/24 at 1440, Anesthesia Intra-op $Given 01/22/2024 2:40 PM CDT 3 mg ondansetron (ZOFRAN) injection Intravenous, PRN, Administer over 2-5 Minutes, Starting on Mon01/22/24 at 1431, Anesthesia Intra-op $Given 01/22/2024 2:31 PM CDT 4 mg propofol (DIPRIVAN) injection 10 mg/mL vial Intravenous, PRN, Starting on Mon01/22/24 at 1312, Anesthesia Intra-op Rate/Dose Change 01/22/2024 2:09 PM CDT 75 mcg/kg/min 32.85 mL/hr Rate/Dose Change 01/22/2024 1:57 PM CDT 50 mcg/kg/min 21.9 mL/hr $New Bag 01/22/2024 1:23 PM CDT 25 mcg/kg/min 10.95 mL/h r rocuronium injection Intravenous, PRN, Starting on 01/22/24 at 1312, Anesthesia Intra-op $Given 01/22/2024 1:12 PM CDT 40 mg documented in this encounter Additional Health Concerns Active Problems Noted Date Diagnosed Date MyC ECC SURG ENROLL 01/17/2024 documented as of this encounter Care Teams Medical Manager Relationship Specialty Start Date End Date Zena Yuan MD [address] [place] [address] PCP - General Family Medicine 01/11/24 documented as of this encounter
--- OUTSIDE RECORDS SUMMARY | 2024-02-20 15:47 | XMS_ITS | Encounter Summary ---
Author Organization [facility] Address [address] [place] [address] Care Team Providers Care Technology Architect Name Role Phone Zena Yuan MD Primary Care Provider Encounter Details Date Type Department Care Team (Late st Contact Info) Description 01/11/2024 Telephone [facility] [address] [place] [phone] Keila Liu, RN Social History Tobacco Use Types Packs/Day Years [...] on filedocumented in this encounter Care Teams Technology Architect Relationship Specialty Start Date End Date [place] [address] PCP - General Family Medicine 01/11/24 documented as of this encounter
--- OUTSIDE RECORDS SUMMARY | 2024-02-20 15:47 | XMS_ITS | Referral Summary ---
Author Organization [facility] Address [address] [place] [address] Care Team Providers Care Historic Interpreter Name Role Phone Zena Yuan MD Primary Care Provider Encounters Date Type Department Care Team Description 01/22/2024 1:08 PM CDT Anesthesia Event [facility] PeriOP Services [address] [place] [phone] Rupesh Denton MD Dennen, Kristina Nguyen, VISION REHABILITATION THERAPIST [facility] 01/22/2024 1:10 PM CDT - 01/22/2024 2:40 PM CDT [facility] [address] [place] [phone] Helen Escalera MD DIAGNOSTIC LAPAROSCOPY, OMENTAL BIOPSIES, AND EVACUATION OF ASCITES 01/22/2024 11:36 AM CDT - 01/22/2024 4:29 PM CDT Hospital Encounter [facility] PreOP/Phase II [address] [place] [phone] Helen Escalera MD Carcinomatosis (H) (Primary Dx) Discharge Disposition: Home or Self Care 01/15/2024 Travel 01/15/2024 10:07 AM CDT - 01/15/2024 11:59 PM CDT Hospital Encounter [facility] [address] [place] [phone] Helen Escalera MD Peritoneal carcinomatosis (H) Discharge Disposition: Home or Self Care 01/11/2024 Telephone [facility] [address] [place] [address] Keila Liu, RN from Last 3 Months Allergies Active Allergy Reactions Criticality Noted Date [...] Date Peritoneal carcinomatosis 01/22/2024 Omental mass 01/22/2024 Social History Tobacco Use Types Packs/Day Years [...] 01/22/2024 12:06 PM CDT Plan of Treatment Not on file Goals Goal Patient Goal Type Associated Problems [...] Case Report Surgical Pathology Report ? Case: [id number] ? Authorizing Provider: ??Helen Escalera MD ? Collected: ? 01/22/2024 02:18 PM ? Ordering Location: ? [facility] ?Received: ?01/22/2024 02:54 PM ? [facility] ? Pathologist: ? Candelaria Powers, ? MD ? Specimen: ?Omentum, Omentum Biopsy ? 02/07/2024 12:47 PM CDT [facility] Addendum An addendum is issued, on [...] a grade 1-2 process. 02/07/2024 12:47 PM [facility] Addendum electronically signed by Candelaria Powers MD on 02/07/2024 at 12:47 PM Final Diagnosis Omentum, biopsy -Follicular lymphoma, classical pattern 02/07/2024 12:47 PM [facility] Comment The unexpected finding of a lymphoid malignancy has been relayed to Dr. Escalera via her nurse Sherly on case sign out. 02/07/2024 12:47 PM [facility] Clinical Information Procedure: DIAGNOSTIC LAPAROSCOPY, OMENTAL BIOPSIES, AND EVACUATION OF ASCITES Pre-op Diagnosis: Intra-abdominal and pelvic swelling, mass and lump, unspecified site [R19.00] Post-op Diagnosis: R19.00 - Intra-abdominal and pelvic swelling, mass and lump, unspecified site [ICD-10-CM] 02/07/2024 12:47 PM [facility] Gross Description A(2). Omentum, Omentum Biopsy: The specimen is received in formalin labeled with the patient's name, medical record number and other identifying information and designated omentum biopsy. It consists of a 5.9 cm aggregate of zne-ojey-nouoch, ragged adipose tissue. Sectioning reveals huff-yellow, lobulated cut surfaces. No definitive tumor is identified. Submitted entirely in 3 cassettes. (Rylee Rooney)01/22/2024 2:59 PM 02/07/2024 12:47 PM [facility] Microscopic Description Evaluation fatty tissue extensively [...] component of this testing was completed at [facility] 02/07/2024 12:47 PM CDT LABORATORY Case Images 02/07/2024 12:47 PM CDT LABORATORY Biopsy OMENTUM STRUCTURE / Unknown 01/22/2024 2:18 PM CDT 01/22/2024 2:54 PM CDT [facility] [address] 1[address] floor, [address] [place] [address], [facility] [phone] * (ABNORMAL) Cytology, non-gynecologic (01/22/2024 2:09 PM CDT) Final Diagnosis Specimen A: Peritoneal fluid, paracentesis: Interpretation: Atypical. See comment. Other Findings: Abundant population of lymphoid elements. Adequacy: Satisfactory for evaluation. 01/25/2024 2:10 PM CDT LABORATORY Comment The findings should be correlated with the surgical pathology specimen [id number]. 01/25/2024 2:10 PM CDT LABORATORY Clinical Information [...] component of this testing was completed at [facility] 01/25/2024 2:10 PM CDT [facility] [place] ABDOMEN / Unknown 01/22/2024 2:09 PM CDT 01/22/2024 2:53 PM CDT [facility] [address] Lab (1st floor, no room number) [place] [address], [facility] [address] [facility], [address] [place] [address], [facility] * ANE AIRWAY ETT PERFORMABLE (01/22/2024 1:18 PM CDT) Narrative Kenzie Jacinto APRN [employer] [facility] - 01/22/2024 1:18 PM CDT Kenzie Jacinto APRN [employer] [facility] ? 01/22/2024 ??1:31 PM Airway ? Patient location during procedure: OR ? Procedure Start/Stop Times: 01/22/2024 1:18 PM Staff - ? Anesthesiologist: ??Shar See MD ? [employer] [facility]: Kenzie Jacinto APRN [employer] [facility] ? Performed By: CRNAIndications and Patient Condition [...] Time: 01/22/2024 1:18 PM Rupesh Denton MD [place] ANESTHESIA * Antibody identification (01/22/2024 12:15 PM CDT) [facility] Antibody Identification Anti-Wallace b (Fyb) 01/22/2024 1:34 PM CDT BLOOD BANK SPECIMEN EXPIRATION DATE [id number] 01/22/2024 1:34 PM CDT BLOOD BANK Blood STRUCTURE OF RIGHT HAND / Unknown Venipuncture / Unknown 01/22/2024 12:15 PM CDT 01/22/2024 12:21 PM CDT Helen Escalera MD LAB - BLOOD BANK [facility] Performing Organization Address [facility] de Phone Number BLOOD BANNER [address] [place] [address], [facility] * (ABNORMAL) Adult Type and Screen (01/22/2024 12:15 PM CDT) [facility] ABO/RH(D) A POS 01/22/2024 11:54 AM CDT BLOOD BANK Antibody Screen Positive(A) Negative 01/22/2024 11:54 AM CDT BLOOD BANK SPECIMEN EXPIRATION DATE [id number] 01/22/2024 11:54 AM CDT BLOOD BANK Blood STRUCTURE OF RIGHT HAND / Unknown Venipuncture / Unknown 01/22/2024 12:15 PM CDT 01/22/2024 12:21 PM CDT Helen Escalera MD LAB - BLOOD BANK [facility] Performing Organization Address [facility] de Phone Number BLOOD BANK [address] [place] [address], [facility] * Red Cell Antigen Typing Non ABO: (01/22/2024 12:15 PM CDT) [facility] Fyb Antigen Type Negative 01/22/2024 4:21 PM CDT BLOOD BANK SPECIMEN EXPIRATION DATE [id number] 01/22/2024 4:21 PM CDT BLOOD BANK Blood STRUCTURE OF RIGHT HAND / Unknown Venipuncture / Unknown 01/22/2024 12:15 PM CDT 01/22/2024 12:21 PM CDT Helen Escalera MD LAB - BLOOD BANK TE ST ORDER BLOOD BANK [address] [place] [address], [facility] * (ABNORMAL) Hemoglobin (01/22/2024 12:15 PM CDT) Pathologist [facility] Hemoglobin 10.3(L) 11.7 - 15.7 g/dL 01/22/2024 12:25 PM CDT LABORATORY Blood STRUCTURE OF RIGHT HAND / Unknown Venipuncture / Unknown 01/22/2024 12:15 PM CDT 01/22/2024 12:21 PM CDT Helen Escalera MD LAB - BLOOD ORDERAB LES LABORATORY [facility] Acute Care Lab [address] floor, [address] [place] [address], [facility] [phone] * CT Paracentesis Initial (01/15/2024 11:50 AM CDT) Anatomical Region Laterality Modality Abdomen/Pelvis Computed Tomogra phy Impressions 01/15/2024 3:18 PM CDT IMPRESSION: 1. No omental mass suitable for CT-guided biopsy. 2. CT guided right lower quadrant paracentesis . DEMETRIUS HUMMEL MD Narrative 01/15/2024 3:18 PM CDT [facility] LOCATION: [facility] CLINICAL HISTORY: Peritoneal carcinomatosis ??. Patient presents [...] Procedure Note Demetrius Hummel MD - 01/15/2024 [facility] LOCATION: [facility] CLINICAL HISTORY: Peritoneal carcinomatosis . Patient presents [...] MyC ECC SURG ENROLL 01/17/2024 Care Teams Historic Interpreter Relationship Specialty Start Date End Date Zena Yuan MD [address] [place] [address] PCP - General Family Medicine 01/11/24
--- OUTSIDE RECORDS SUMMARY | 2024-02-20 15:47 | XMS_ITS | Clinical Summary ---
Author Organization [employer] 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 120 tablet 06/01/2019 Active blood-glucose meterIndications:D iabetes [...] per day. 100 Each 1 10/05/2022 Active rosuvastatin (CRESTOR) 10 mg tabletIndications: Dyslipidemia Take 1 Tablet (10 mg) by mouth at bedtime. 90 Tablet 3 09/06/2023 Active potassium chloride (KLOR-CON M20) 20 mEq extended-release tablet (part/cryst)Indica tions:Hypokalemia Take 1 Tablet (20 mEq) by mouth once daily with a meal. 01/10/2024 Active Active Problems Problem Noted Date Diagnosed Date Intra-abdominal and pelvic s welling, mass and lump, unspecified site 01/18/2024 Osteoarthritis of carpometacarpal joint of right thumb [...] Overview: left, 11/24. 19mm. follow up at [place], 6 months Diverticulosis Resolved Problems Problem Noted Date Diagnosed Date Resolved Date Severe obesity (BMI 35.0-39. 9) with comorbidity 11/22/2016 01/01/2024 Post-operative pain 07/23/2013 05/23/20 Painful Hardware 03/27/2013 04/05/2013 Other secondary hypertension, benign 04/12/2006 02/06/2008 hyperglycemia 04/12/2006 02/06/2008 Other complications due to u nspecified device, implant, and graft 03/01/2006 03/22/2013 Overview: Painful hardware L2-3 Encounters Date Type Department Care Team Description 01/18/2024 3:15 PM CDT Orders Only [facility] [address] [facility] [place] [facility] 01/18/2024 2:50 PM CDT Preop Visit [facility] [place] [address] Merlene Daniels DO Pre-Op Exam (Diagnostic Laparoscopic abdominal biposies. With Dr. Burrell at [facility] FAX [phone]) 01/18/2024 Travel 01/10/2024 11:45 AM CDT Office Visit [facility] [place] [address] Zena Yuan MD Hospital F/U (Dod 01/04/24) 01/10/2024 Travel 01/08/2024 Orders Only [facility] Niharika [address] [facility] [place] [address] Zena Yuan MD Outside Order (Ordered by Helen Escalera) 01/05/2024 Telephone [facility] [address] Zena Yuan MD Lab 01/03/2024 7:00 AM CDT Orders Only [facility] Rajiv Shane [facility] [address] [place] [address] Lab 01/03/2024 Orders Only [facility] Scanner 1 scan: (1-Ord) SILVER, CHEST/ABD/PELVIS W, 01/03/2024 01/02/2024 11:30 AM CDT Ancillary Procedure [facility] [address] [facility] [address] 01/02/2024 11:00 AM CDT Ancillary Procedure [facility] [address] [facility] [address] 01/02/2024 9:50 AM CDT Orders Only [facility] [address] [place], [place] Lab 01/02/2024 Telephone [facility] Niharika Oliveiraerson Luis [facility] [address] Nona Vázquez DO Abnormal Lab Results 01/02/2024 E-Consult [address] [place] [address] Rodney Irizarry MBBS 01/02/2024 Orders Only [facility]ika [facility] [place] [address] Jen Nguyen DO <No scans attached> 01/01/2024 10:20 AM CDT Office Visit [facility] [address] [place] [address] Zena Yuan MD Diabetes 01/01/2024 Travel 12/23/2023 Orders Only [facility] Scanner 1 scan: (1-Ord) [facility], CT LT HIP, 12/23/2023 12/23/2023 Orders Only [facility] Scanner 1 scan: (1-Ord) [facility], NONCONTRAST CT SCAN OF PELVIS W/RE-FORMATTED IMAGES OBTAINED, 12/23/2023 from Last 3 Months Immunizations Name Administration Dates Next Due AMB Influenza, IIV3 (Age >=3 years)(Flu Clinic Only) 06/13/2013,07/01/2011 COVID-19 vaccine (Moderna 100mcg/0.5mL) JENNIFER ARZATE 10/31/2020,10/03/2020 Influenza, High-dose Inactivated 019,06/24/2016,06/23/2015,2013 Influenza, High-dose [...] Sign Reading Time Taken Comments Blood Pressure 132/69 01/18/2024 2:58 PM CDT Pulse 71 01/18/2024 2:58 PM CDT Temperature 36.7 ??C (98.1 ??F) 06/24/2020 9:17 AM CD T Respiratory Rate 16 06/01/2019 7:50 AM CDT Oxygen Saturation 97% 01/10/2024 11:52 AM CDT Inhaled Oxygen Concentration - - Weight 73.5 kg (162 lb) 01/18/2024 2:58 PM CDT Height 163.8 cm (5' 4.5) 01/18/2024 2:58 PM CDT Body Mass Index 27.38 01/18/2024 2:58 PM CDT Plan of Treatment Health Maintenance Due Date Last Done Comments Tetanus booster 06/10/2023 06/10/2013, 05/20, 01/06/2006, Additional history exists COVID-19 vaccine series ( season) 2023 08/08/2023, 06/25/2022, 02/04/2022, Additional history exists Medicare Wellness for age 65+ 04/05/2024, 03/30/2022, 02/26/2021, Additional history exists Depression screening for age 12+ 04/06/2024 04/06/2023, 04/05/2023, 03/30/2022, Additional history exists Influenza for age 65+ 05/19/2024 06/06/2023 , 06/25/2022, 06/03/2021, Additional history exists BMI (ht and wt on same day) for age 18+ 01/17/2025 01/18/2024, 09/06/2023, 04/05/2023, Additional history exists Tdap Completed 06/10/2013, 06/10/2013 Pneumococcal series for age 65+ Completed 06/23/2015, 06/28/2010, 07/19/2006, Additional history exists Zoster (shingles) series for age 50+ Completed 09/09/2019, 07/11/2019, 06/27/2011, Additional history exists DEXA/DXA scan for age 65+ Completed 2020, 07/04/2014, 07/20/2007 Medical Devices Implanted Type Area Lead Case Manager Device Identifier Shelf Expiration Date Model / Serial / Lot Beto Spinal Hex End 20in Titnm Cd - [id number] Implanted:Qty: 1 on 04/27/2010 at [facility] Spine Implants N/A: Spine SOFAMOR DANEK [id number]# / / Xstop Size 14 Mm Implanted:Qty: 1 on 04/12/2006 at [facility] Spine 200 141 / / [id number] Description:XSTOP SIZE 14MM [id number] Canclls Crushed 30cc [[id number]] Implanted:Qty: 1 on 08/09/2006 at [facility] Explanted:at [facility] (Quantity not on file) Spine Allosource 05/06/2011 27 [id number]# / [id number] / Kit Infuse Lg [id number] - [id number] Implanted:Qty: 1 on 08/09/2006 at [facility] Spine SOFAMOR DANEK [id number]# / / [id number] I Hook Narrow Blade Lg Std - [id number] Implanted:Qty: 4 on 04/27/2010 at [facility] N/A: Spine SOFAMOR DANEK [id number]# / / Cnnctr Ti 5.5 16mm Crosslink - [id number] Implanted:Qty: 1 on 04/27/2010 at [facility] N/A: Spine SOFAMOR DANEK [id number]# / / Cnnctr Ti 5.5 22mm Crosslink - [id number] Implanted:Qty: 1 on 04/27/2010 at [facility] N/A: Spine SOFAMOR DANEK [id number]# / / Screw Set Break-Off Hex Titnm - [id number] Implanted:Qty: 4 on 04/27/2010 at [facility] N/A: Spine SOFAMOR DANEK [id number]# / / Kit Infuse Lg [id number] - [id number] Implanted:Qty: 1 on 04/27/2010 at [facility] Spine SOFAMOR DANEK [id number]# / / [id number] A Screw 535x50 Standard Implanted:Qty: 1 on 04/27/2010 at [facility] Spine [id number] / / Description:SCREW 535X50 STA NDARD Screw 4.5x50 Standard Implanted:Qty: 1 on 04/27/2010 at [facility] Spine 835 [id number] / / Description:SCREW 4.5X50 STA NDARD Screw 4.5x45 Standard Implanted:Qty: 1 on 04/27/2010 at [facility] Spine 835 40844 / / Description:SCREW 4.5X45 STA NDARD [id number] e Canclls Crushed 60cc [[id number]] Implanted:Qty: 1 on 04/27/2010 at [facility] Explanted:at [facility] (Quantity not on file) Spine Musculoskeletal Transplant 11/19/2012 [id number]# / [id number] / [id number] e Canclls Crushed 60cc [[id number]] Implanted:Qty: 1 on 04/27/2010 at [facility] Explanted:at [facility] (Quantity not on file) Spine Musculoskeletal Transplant 11/19/2012 [id number]# / [id number] / Set Screw 3dx - [id number] Implanted:Qty: 7 on 04/27/2010 at [facility] N/A: Spine MEDTRONIC MEDICAL [id number]# / / Cnnctr Tsrh 3dx Sm - [id number] Implanted:Qty: 5 on 04/27/2010 at [facility] N/A: Spine Medtronic [id number]# / / Cnnctr Tsrh 3dx Md - [id number] Implanted:Qty: 1 on 04/27/2010 at [facility] N/A: Spine Medtronic [id number]# / / Screw Thin Crest 5.5x45mm - [id number] Implanted:Qty: 2 on 04/27/2010 at [facility] N/A: Spine SOFAMOR DANEK [id number]# / / [id number] Canc 90cc Crushed Freeze Dried [[id number]][[id number]] Implanted:Qty: 1 on 07/16/2013 at [facility] Spine Musculoskeletal Transplant 12/18/2015 412258# / [id number] / [id number] Implanted:Qty: 1 on 07/16/2013 at [facility] Spine SPINAL GRAFT 06/02/2016 4 2275 / [id number] / Description:DBM [id number] GRAFT ON M [id number] Matrix 1x5cm Magnifuse Pcdbm [[id number]] Implanted:Qty: 1 on 07/16/2013 at [facility] Explanted:at [facility] (Quantity not on file) Spine Medtronic Spine/Ortho 05/29/2015 [id number]# / [id number] / Screw Lock 5.5mm Solera Break Off - [id number] Implanted:Qty: 6 on 07/16/2013 by Simón Hodge MD at [facility] N/A: Spine Medtronic Spine/Ortho [id number]# / / Screw Polyaxial 5.5x50 Co Cr Solera - [id number] Implanted:Qty: 2 on 07/16/2013 by Simón Hodge MD at [facility] N/A: Spine Medtronic Spine/Ortho [id number] 50# / / Screw Polyaxial 5.5x55 Co Cr Solera - [id number] Implanted:Qty: 1 on 07/16/2013 by Simón Hodge MD at [facility] N/A: Spine Medtronic Spine/Ortho [id number] 55# / / Screw Polyaxial 6.5x50 Co Cr Solera - [id number] Implanted:Qty: 1 on 07/16/2013 by Simón Hodge MD at [facility] N/A: Spine Medtronic Spine/Ortho [id number] 50# / / Screw Polyaxial 7.5x50 Co Cr Solera - [id number] Implanted:Qty: 1 on 07/16/2013 by Simón Hodge MD at [facility] N/A: Spine Medtronic Spine/Ortho [id number] 50# / / Screw Polyaxial 7.5x55 Co Cr Solera - [id number] Implanted:Qty: 1 on 07/16/2013 by Simón Hodge MD at [facility] N/A: Spine Medtronic Spine/Ortho [id number] 55# / / Beto 5.0x709ht Stra Titnm Alloy Solera - [id number] Implanted:Qty: 2 on 07/16/2013 by Simón Hodge MD at [facility] N/A: Spine Medtronic Spine/Ortho [id number] 0# / / Lauro Stephens Md Std - [id number] Implanted:Qty: 2 on 07/16/2013 by Simón Hodge MD at [facility] N/A: Spine Medtronic Spine/Ortho [id number]# / / Lauro Stephens Md Rmpd Thorac - [id number] Implanted:Qty: 8 on 07/16/2013 by Simón Hodge MD at [facility] N/A: Spine Medtronic Spine/Ortho [id number]# / / Screw Set Break-Off Hex Titnm - [id number] Implanted:Qty: 10 on 07/16/2013 by Simón Hodge MD at [facility] N/A: Spine Medtronic Spine/Ortho [id number]# / / Cnnctr Ti 5.5 16mm Xlink - [id number] Implanted:Qty: 1 on 07/16/2013 by Simón Hodge MD at [facility] N/A: Spine Medtronic Spine/Ortho [id number]# / / Cnnctr Ti 5.5 28mm Xlink - [id number] Implanted:Qty: 1 on 07/16/2013 by Simón Hodge MD at [facility] N/A: Spine Medtronic Spine/Ortho [id number]# / / [id number] 1cc Greer Plus Paste Dbm Implanted:Qty: 1 on 05/30/2019 by Josh Casillas MD at [facility] Explanted:at [facility] (Quantity not on file) N/A: Spine Medtronic Spine/Ortho 11/21/2020 [id number]# / [id number] / [id number] 4-10mm 15cc Medtronic Canclls Chips Freeze Dried Implanted:Qty: 1 on 05/30/2019 by Josh Casillas MD at [facility] Explanted:at [facility] (Quantity not on file) N/A: Spine Medtronic Spine/Ortho 09/16/2023 [id number]# / [id number] / Cage 5mm X 16mm X 14mm Implanted:Qty: 1 on 05/30/2019 by Josh Casillas MD at [facility] N/A: Spine [id number] / / 85HK Screw Cerv Ant 4x13mm Atlantistranslational Fa Slf Drill - [id number] Implanted:Qty: 2 on 05/30/2019 by Josh Casillas MD at [facility] N/A: Spine Medtronic Spine/Ortho [id number]# / / Screw Cerv Ant 4x13mm Atlantistranslational Va Slf Drill - [id number] Implanted:Qty: 2 on 05/30/2019 by Josh Casillas MD at [facility] N/A: Spine Medtronic Spine/Ortho [id number]# / / Plate Cerv 1lvl 19mmvision Elite Ant - [id number] Implanted:Qty: 1 on 05/30/2019 by Josh Casillas MD at [facility] N/A: Spine Medtronic Spine/Ortho [id number]# / / Procedures Procedure Name Priority Date/Time Associated Diagnosis Comments BASIC METABOLIC PANEL Routine 01/18/2024 3:39 PM CDT Hypercalcemia Hypokalemia BASIC METABOLIC PANEL STAT 01/10/2024 12:42 PM CDT Hypercalcemia Hypokalemia CEA Routine 01/10/2024 12:42 PM CDT Abdominal mass, unspecified abdominal location CA 19-9 Routine 01/10/2024 12:42 PM CDT Abdominal mass, unspecified abdominal location CA 125 Routine 01/10/2024 12:42 PM CDT Abdominal mass, unspecified abdominal location OCCULT BLOOD IFOBT STOOL Routine 01/03/2024 1:02 PM CDT Night sweats Weight loss, unintentional Inguinal lymphadenopathy SCAN-CT INTERPRETATION 01/03/2024 12:[address] CHEST ABDOMEN PELVIS WO Routine 01/02/2024 11:55 AM CDT Night sweats Weight loss, unintentional Inguinal lymphadenopathy XR FEMUR 2 VIEWS LEFT Routine 01/02/2024 11:17 AM CDT Left thigh pain URINALYSIS MICROSCOPIC Routine 01/02/2024 11:04 AM CDT Diabetes mellitus without complication (HC) Depression, major, single episode, moderate (HC) Night sweats Weight loss, unintentional Inguinal lymphadenopathy PROTEIN ELP,URINE RANDOM Routine 01/02/2024 11:04 AM CDT Hypercalcemia UA W/ SEDIMENT EXAM REFLEXED PER CRITERIA Routine 01/02/2024 11:04 AM CDT Diabetes mellitus without complication (HC) Depression, major, single episode, moderate (HC) Night sweats Weight loss, unintentional Inguinal lymphadenopathy IMMUNOFIXATION,SERUM Routine 01/02/2024 10:58 AM CDT Hypercalcemia PARATHYROID HORMONE-RELATED PEPTIDE (PTH-RP) Routine 01/02/2024 10:58 AM CDT Hypercalcemia PROTEIN ELP SERUM W REFLEX Routine 01/02/2024 10:58 AM CDT Hypercalcemia CALCITRIOL(1 25 DI OH VIT D) Routine 01/02/2024 10:58 AM CDT Hypercalcemia PTH,INTACT Routine 01/02/2024 10:58 AM CDT Hypercalcemia [...] AM CDT Diabetes mellitus without complication (HC) SCAN-CT INTERPRETATION 12/23/2023 12:00 AM CDT SCAN-RADIOLOGY REPORT 12/23/2023 12:00 AM CDT XR DXA BONE DENSITY 1 SITE AXIAL AND 1 SITE PERIPHERAL Routine 03/03/2021 2:36 PM CDT Low bone density for age from Last 3 Months or Most Recently Relevant to Health Maintenance Results * (ABNORMAL) BASIC METABOLIC PANEL (01/18/2024 3:39 PM CDT) Only the most recent of2 resultswithin the time period is included. SODIUM 136 136 - 145 mmol/L 01/19/2024 2:26 PM CDT [facility] POTASSIUM 3.6 3.5 - 5.1 mmol/L 01/19/2024 2:26 PM CDT [facility] CHLORIDE 98 98 - 107 mmol/L 01/19/2024 2:26 PM CDT [facility] CO2,TOTAL 26 22 - 29 mmol/L 01/19/2024 2:26 PM CDT [facility] ANION GAP 12 5 - 18 01/19/2024 2:26 PM CDT [facility] GLUCOSE 180(H) 70 - 99 mg/dL 01/19/2024 2:26 PM CDT [facility] CALCIUM 11.1(H) 8.8 - 10.2 mg/dL 01/19/2024 2:26 PM CDT [facility] BUN 23 8 - 23 mg/dL 01/19/2024 2:26 PM CDT [facility] CREATININE 1.27(H) 0.50 - 0.90 mg/dL 01/19/2024 2:26 PM CDT [facility] BUN/CREAT RATIO 18 10 - 20 2:26 PM CDT [facility] eGFR 42(L) >90 mL/min/1.7 3m2 01/19/2024 2:26 PM CDT [facility] Comment:As of 2021, eG FR is calculated by the CKD-EPI creatinine equation without race adjustment. ??eGFR can be influenced by muscle mass, exercise, and diet. ??The reported eGFR is an estimation only and is only applicable if the renal function is stable. Blood BLOOD SPECIMEN / Unknown Venipuncture / Unknown 01/18/2024 3:39 PM CDT 01/18/2024 3:40 PM CDT Zena Yuan MD [facility] [address] [place], [place] [address] * (ABNORMAL) CA 125 (01/10/2024 12:42 PM CDT) CA 125 1,068.0(H) <38.2 U/mL 01/11/2024 12:14 AM CDT [facility] Blood BLOOD SPECIMEN / Unknown Venipuncture / Unknown 01/10/2024 12:42 PM CDT 01/10/2024 12:45 PM CDT Narrative [facility] - 01/11/2024 12:14 AM CDT The test method changed on 09/20/2022. If this test has been used for serial monitoring, rebaselining is recommended. Rebaselining consists of 2 measurements, collected 3-6 weeks apart. The Radhika Elecsys CA 125 assay is an electrochemiluminescence immunoassay ECLIA performed on the [employer]otion Mercedes e immunoassy analyzers. ?? Values obtained with different assay methods may be different and cannot be used interchangeably. ? Biotin supplements may cause clinically significant interference for this test assay. If interference is suspected, it is strongly recomended that biotin is discontinued for at least one week prior to retesting. Zena Yuan MD CHEMISTRY [facility] [address] [place] [address], * CA 19-9 (01/10/2024 12:42 PM CDT) CA 19-9 8 <36 IU/mL 01/11/2024 12:06 AM CDT [facility] Blood BLOOD SPECIMEN / Unknown Venipuncture / Unknown 01/10/2024 12:42 PM CDT 01/10/2024 12:45 PM CDT Narrative [facility] - 01/11/2024 12:06 AM CDT The test method changed on 09/20/2022. If this test has been used for serial monitoring, rebaselining is recommended. Rebaselining consists of 2 measurements, collected 3-6 weeks apart. The Radhika Elecsys CA 19-9 assay is an electrochemiluminescence immunoassay ECLIA performed on the [employer] e immunoassy analyzers. ?? Values obtained with different assay methods may be different and cannot be used interchangeably. ? Biotin supplements may cause clinically significant interference for this test assay. If interference is suspected, it is strongly recomended that biotin is discontinued for at least one week prior to retesting. Zena Yuan MD SEND OUTS [facility] [address] [place] [address], * CEA (01/10/2024 12:42 PM CDT) CEA 0.9 ng/mL 01/11/2024 12:06 AM CDT [facility] Blood BLOOD SPECIMEN / Unknown Venipuncture / Unknown 01/10/2024 12:42 PM CDT 01/10/2024 12:45 PM CDT Narrative [facility] - 01/11/2024 12:06 AM CDT ?CEA Ranges Age Range ? Reference Range 20 years up to 70 years (all subjects) ?<4.8 ng/mL 40 years up to 70 years (all subjects) ?<5.3 ng/mL 20 years up to 70 years (non smoker) ?<3.9 ng/mL 40 years up to 70 years (non smoker) ?<5.1 ng/mL 20 years up to 70 years (smoker) ?<5.6 ng/mL 40 years up to 70 years (smoker) ?<6.6 ng/mL The test method changed on 09/20/2022. If this test has been used for serial monitoring, rebaselining is recommended. Rebaselining consists of 2 measurements, collected 3-6 weeks apart. The Radhika Elecsys CEA assay is an electrochemiluminescence immunoassay ECLIA performed on the Radhika Mercedes e immunoassy analyzers. ?? Values obtained with different assay methods may be different and cannot be used interchangeably. ? Biotin supplements may cause clinically significant interference for this test assay. If interference is suspected, it is strongly recomended that biotin is discontinued for at least one week prior to retesting. Zena Yuan MD CHEMISTRY Performing Organization Address [facility] de Phone Number [facility] [address] [place] [address], * OCCULT BLOOD IFOBT STOOL (01/03/2024 1:02 PM CDT) STOOL BLOOD ,IFOBT Negative Negative 01/05/2024 2:07 PM CDT [facility] Stool STOOL SPECIMEN / Unknown Non-Blood / Unknown 01/03/2024 1:02 PM CDT 01/05/2024 1:02 PM CDT Zena Yuan MD LABORATORY Performing Organization Address [facility] de Phone Number [facility] [address] [place] [address], * SCAN-CT INTERPRETATION (01/03/2024 12:00 AM CDT) Only the most recent of2 resultswithin the time period is included. Anatomical Region Laterality Modality Other Scanner OTHER * CT CHEST ABDOMEN PELVIS WO (01/02/2024 11:55 AM CDT) Anatomical Region Laterality Modality Abdomen, Pelvis, AORTA, LIVER, SPLEEN, CHEST Computed Tomography 01/03/2024 1:16 PM CDT Impressions 01/03/2024 1:16 PM CDT 1. Pathologically enlarged lymph nodes within the chest, abdomen and pelvis, suspicious for lymphoma or other metastatic disease. 2. Tiny bilateral pulmonary nodules measuring under 5 millimeters. Continued imaging surveillance is recommended. 3. Mild splenomegaly. 4. Suboptimal evaluation the gastrointestinal tract. 5. Abdominal ascites with findings suspicious for peritoneal carcinomatosis. Please note that all CT scans at this facility use dose modulation, iterative reconstruction, and/or weight-based dosing when appropriate to reduce radiation dose to as low as reasonably achievable. Dictated by Carter Cordoba MD @ 01/03/2024 1:16:17 PM (Electronically Signed) Narrative 01/03/2024 1:16 PM CDT For Patients: ??As a result of the Century Cures Act, medical imaging exams and procedure reports are released immediately into your electronic medical record. ??You may view this report before your referring provider. ??If you have questions, please contact your health care provider. INDICATION: Unintentional weight loss and night sweats. Inguinal lymphadenopathy. TECHNIQUE: CT chest, abdomen and pelvis without contrast. COMPARISON: None. FINDINGS: CHEST CT: Lower neck and chest wall: Small and mildly prominent bilateral axillary and subpectoral lymph nodes. Mediastinum and gail: Pathologically enlarged mediastinal and bilateral hilar lymph nodes. There is a 3.3 centimeter subcarinal abbey mass. Heart and vasculature: Moderate coronary artery calcification. Mild aortic calcification. Lungs: 4 millimeter left lower lobe nodule (image 72, series 8. 2 millimeter right upper lobe nodule (image 29, series 8). Minimal interstitial thickening in the lung bases. No pulmonary consolidation. Pleura: Normal. No pleural mass, pleural effusion or pneumothorax. Bones: Degenerative spondylosis and accentuated kyphosis of the thoracic spine. Posterior spinal fusion with instrumentation and bone graft extending from T4 to T12. No acute fracture or suspicious bone lesion. ABDOMEN/PELVIS CT: Liver: No hepatic mass or duct dilatation. Gallbladder and bile ducts: Status post cholecystectomy. Normal caliber common bile duct. Pancreas: No pancreatic mass or duct dilatation identified. Spleen: Mild splenomegaly. No focal splenic lesion. Adrenal glands: Normal in size. No nodules. Kidneys, ureters and urinary bladder: Normal kidneys. No suspicious masses, stones, or hydronephrosis. Unremarkable urinary bladder. GI tract: Evaluation of the gastrointestinal tract is severely limited secondary to artifact from lumbar spinal instrumentation and the lack of intravenous contrast as well as abdominal ascites and intra-abdominal densities. No bowel obstruction is identified. Vasculature: Moderate atherosclerosis of the abdominal aorta. No aneurysm. Lymph nodes: Enlarged mesenteric and retroperitoneal lymph nodes. This includes para-aortic and bilateral iliac lymphadenopathy.. Peritoneum/Omentum: Small to moderate abdominal ascites. Findings suspicious for left lower pelvic peritoneal mass measuring 2.5 cm (image 169, series 11). There is hazy density and reticulonodular markings throughout the omentum. Pelvis: Presacral tissue thickening. Pelvic ascites and lymphadenopathy. Suspect previous hysterectomy. Abdominal wall: Unremarkable. No mass or bowel containing hernia. Bones: Anterior and posterior spinal fusion with posterior beto instrumentation is present and results in artifact limiting evaluation of the abdomen. Procedure Note Carter Cordoba MD - 01/03/2024 For Patients: As a result of the Century Cures Act, medical imagingexams and procedure reports are released immediately into your electronicmedical record. You may view this report before your referring provider.If you have questions, please contact your health care provider. INDICATION: Unintentional weight loss and night sweats. Inguinal lymphadenopathy. TECHNIQUE: CT chest, abdomen and pelvis without contrast. COMPARISON: None. FINDINGS: CHEST CT: Lower neck and chest wall: Small and mildly prominent bilateral axillaryand subpectoral lymph nodes. Mediastinum and gail: Pathologically enlarged mediastinal and bilateralhilar lymph nodes. There is a 3.3 centimeter subcarinal abbey mass. Heart and vasculature: Moderate coronary artery calcification. Mild aorticcalcification. Lungs: 4 millimeter left lower lobe nodule (image 72, series 8. 2millimeter right upper lobe nodule (image 29, series 8). Minimalinterstitial thickening in the lung bases. No pulmonary consolidation. Pleura: Normal. No pleural mass, pleural effusion or pneumothorax. Bones: Degenerative spondylosis and accentuated kyphosis of the thoracicspine. Posterior spinal fusion with instrumentation and bone graftextending from T4 to T12. No acute fracture or suspicious bone lesion. ABDOMEN/PELVIS CT: Liver: No hepatic mass or duct dilatation. Gallbladder and bile ducts: Status post cholecystectomy. Normal calibercommon bile duct. Pancreas: No pancreatic mass or duct dilatation identified. Spleen: Mild splenomegaly. No focal splenic lesion. Adrenal glands: Normal in size. No nodules. Kidneys, ureters and urinary bladder: Normal kidneys. No suspiciousmasses, stones, or hydronephrosis. Unremarkable urinary bladder. GI tract: Evaluation of the gastrointestinal tract is severely limitedsecondary to artifact from lumbar spinal instrumentation and the lack ofintravenous contrast as well as abdominal ascites and intra-abdominaldensities. No bowel obstruction is identified. Vasculature: Moderate atherosclerosis of the abdominal aorta. No aneurysm. Lymph nodes: Enlarged mesenteric and retroperitoneal lymph nodes. Thisincludes para-aortic and bilateral iliac lymphadenopathy.. Peritoneum/Omentum: Small to moderate abdominal ascites. Findingssuspicious for left lower pelvic peritoneal mass measuring 2.5 cm ([id number], series 11). There is hazy density and reticulonodular markingsthroughout the omentum. Pelvis: Presacral tissue thickening. Pelvic ascites and lymphadenopathy.Suspect previous hysterectomy. Abdominal wall: Unremarkable. No mass or bowel containing hernia. Bones: Anterior and posterior spinal fusion with posterior rodinstrumentation is present and results in artifact limiting evaluation ofthe abdomen. IMPRESSION: 1. Pathologically enlarged lymph nodes within the chest, abdomen andpelvis, suspicious for lymphoma or other metastatic disease. 2. Tiny bilateral pulmonary nodules measuring under 5 millimeters.Continued imaging surveillance is recommended. 3. Mild splenomegaly. 4. Suboptimal evaluation the gastrointestinal tract. 5. Abdominal ascites with findings suspicious for peritonealcarcinomatosis. Please note that all CT scans at this facility use dose modulation,iterative reconstruction, and/or weight-based dosing when appropriate toreduce radiation dose to as low as reasonably achievable. Dictated by Carter Cordoba MD @ 01/03/2024 1:16:17 PM (Electronically Signed) Zena Yuan MD CT * XR FEMUR 2 VIEWS LEFT (01/02/2024 [...] None Seen /HPF 01/02/2024 11:18 AM CDT [facility] WBC 3-5 0-2, 3-5, None Seen /HPF 01/02/2024 11:18 AM CDT [facility] BACTERIA Few None Seen, Rare, Few Bacteria/ HPF 01/02/2024 11:18 AM CDT [facility] EPITHELIAL CELLS Few None Seen, Few Epi/HPF 01/02/2024 11:18 AM CDT [facility] HYALINE CASTS 3-5 0-2, 3-5 /LPF 01/02/2024 11:18 AM CDT [facility] CALCIUM OXALATE CRYSTALS Present(A) (none) 01/02/2024 11:18 AM CDT [facility] Urine URINE SPECIMEN / Unknown Non-Blood / Unknown 01/02/2024 11:04 AM CDT 01/02/2024 11:04 AM CDT Zena Yuan MD URINE [facility] [address] [place] [address], [place] [phone] * (ABNORMAL) PROTEIN ELP,URINE RANDOM (01/02/2024 11:04 AM CDT) ELP INTERP, URINE Mild proteinuria, non-selective pattern, tubulointerstitial or mixed glomerular-tubular disease. Possible renal insufficiency. No monoclonal protein detected. Interpreted and electronically signed by: Miriam Mansfield MD 01/03/2024 5:[address] [facility] PROTEIN QUANT,RAND URINE 42(H) 1 - 14 mg/dL 01/03/2024 5:[address] [facility] Urine URINE SPECIMEN / Unknown Non-Blood / Unknown 01/02/2024 11:04 AM CDT 01/02/2024 11:04 AM CDT Zena Yuan MD URINE [facility] [address] [place] [address], [place] * (ABNORMAL) UA W/ SEDIMENT EXAM REFLEXED PER CRITERIA (01/02/2024 11:04 AM CDT) COLOR Yellow Yellow Color 01/02/2024 11:19 AM CDT [facility] CLARITY Clear Clear Clarity 01/02/2024 11:19 AM CDT [facility] SPECIFIC GRAVITY,URINE >=1.030(A) 1.010, 1.015, 1.020, 1.025 01/02/2024 11:19 AM CDT [facility] PH,URINE 5.5 6.0, 7.0, 8.0, 5.5, 6.5, 7.5, 8.5 01/02/2024 11:19 AM CDT [facility] UROBILINOGEN, QUALITATIVE Normal Normal EU/dl 01/02/2024 11:19 AM CDT [facility] PROTEIN, URINE 30(A) Negative mg/dL 01/02/2024 11:19 AM CDT [facility] GLUCOSE, URINE Negative Negative mg/dL 01/02/2024 11:19 AM CDT [facility] KETONES,URINE Negative Negative mg/dL 01/02/2024 11:19 AM CDT [facility] BILIRUBIN,URI NE Negative Negative 01/02/2024 11:19 AM CDT [facility] OCCULT BLOOD,URINE Negative Negative 01/02/2024 11:19 AM CDT [facility] NITRITE Negative Negative 01/02/2024 11:19 AM CDT [facility] LEUKOCYTE ESTERASE Trace(A) Negative 01/02/2024 11:19 AM CDT [facility] Urine URINE SPECIMEN / Unknown Non-Blood / Unknown 01/02/2024 11:04 AM CDT 01/02/2024 11:04 AM CDT Zena Yuan MD URINE [facility] [address] [place] [address], * (ABNORMAL) PROTEIN ELP SERUM W REFLEX (01/02/2024 10:58 AM CDT) ELP,ALBUMIN 3.56 3.31 - 5.31 g/dL 01/05/2024 5:[address] [facility] ELP,ALPHA 1 0.48(H) 0.19 - 0.42 g/dL 01/05/2024 5:21 PM CDT [facility] ELP,ALPHA 2 0.77 0.44 - 1.03 g/dL 01/05/2024 5:21 PM CDT [facility] ELP,GAMMA 0.44(L) 0.59 - 1.46 g/dL 01/05/2024 5:21 PM CDT [facility] ELP,BETA 0.74 0.52 - 1.05 g/dL 01/05/2024 5:21 PM CDT [facility] MONOCLONAL PEAK 1 0.06 <=0.00 g/dL 01/05/2024 5:21 PM CDT [facility] ELP INTERP,SERUM Monoclonal protein detected in gamma region, confirmed by immunofixation. Interpreted and electronically signed by: Jyoti Melo MD 01/05/2024 5:21 PM CDT [facility] PROTEIN,TOTAL 6.0 6.0 - 8.0 g/dL 01/05/2024 5:21 PM CDT [facility] Blood BLOOD SPECIMEN / Unknown Butterfly / Unknown 01/02/2024 10:58 AM CDT 01/02/2024 11:01 AM CDT Zena Yuan MD CHEMISTRY [facility] [address] [place] [address], * PARATHYROID HORMONE-RELATED PEPTIDE (PTH-RP) (01/02/2024 10:58 AM CDT) [facility] Signature PTH Related Peptide <2.0 pmol/L 01/05 1:11 PM CDT [facility] ESOTERIC TESTING (CET) Comment: This test was developed and its performance characteristics determined by [facility]. It has not been cleared or approved by the Food and Drug Administration. Reference Range: All Ages: <2.0 The PTHrP assay should not be used to exclude cancer or screen tumor patients for humoral hypercalcemia of malignancy (HHM). The results should always be assessed in conjunction with the patient's medical history, clinical examination, and other findings. If test results are clinically discordant, please contact the laboratory. Blood BLOOD SPECIMEN / Unknown Butterfly / Unknown 01/02/2024 10:58 AM CDT 01/02/2024 11:[address] [facility] ESOTERIC TESTING (CET) - 01/06/2024 1:11 PM CDT Performed at: ??01 - [employer] [address] [place] [address] ??[id number] Patent Clerk: Keith Lopez MD, Phone: ??[phone] Zena Yuan MD SEND OUTS Performing Organization Address [facility] Co de Phone Number [facility] ESOTERIC TESTING (CET) [address] [place] [address] * (ABNORMAL) CALCITRIOL(1 25 DI OH VIT D) (01/02/2024 10:58 AM CDT) [facility] Vit D 1,25 di OH 137.0(H) 24.8 - 81.5 pg/mL 01/04/2024 1:11 PM CDT [facility] ESOTERIC TESTING (CET) Blood BLOOD SPECIMEN / Unknown Butterfly / Unknown 01/02/2024 10:58 AM CDT 01/02/2024 11:[address] [facility] ESOTERIC TESTING (CET) - 01/04/2024 1:11 PM CDT Performed at: ??01 - [address] ??[id number] Patent Clerk: Gia Pritchett MD, Phone: ??[phone] Zena Yuan MD SEND OUTS Performing Organization Address [facility] Co de Phone Number [facility] ESOTERIC TESTING (CET) [address] [place] [address] * (ABNORMAL) IMMUNOFIXATION,SERUM (01/02/2024 10:58 AM CDT) IGG 390.13(L) 610.30 - 1,616.00 mg/dL 01/05/2024 5:21 PM CDT [facility] IGA 140.84 84.50 - 499.00 mg/dL 01/05/2024 5:21 PM CDT [facility] IGM 109.21 35.00 - 242.00 mg/dL 01/05/2024 5:21 PM CDT [facility] IFIX INTERP,SERUM Immunofixation on serum shows trace complete monoclonal protein IgG lambda with no free light chains detected. The finding of a monoclonal protein may be associated with a lymphoproliferative or plasma cell disorder. Consider serum free light chains, urine protein electrophoresis and urine immunofixation to further evaluate, if not already performed. Interpreted and electronically signed by: Jyoti Melo MD 01/05/2024 5:21 PM CDT [facility] Blood BLOOD SPECIMEN / Unknown Butterfly / Unknown 01/02/2024 10:58 AM CDT 01/02/2024 11:01 AM CDT Zena Yuan MD CHEMISTRY [facility] [address] [place] [address], * (ABNORMAL) PTH,INTACT (01/02/2024 10:58 AM CDT) CALCIUM 13.8(HH) 8.8 - 10.2 mg/dL 01/02/2024 11:00 PM CDT [facility] PTH,INTACT 10.2(L) 15.0 - 69.0 pg/mL 01/02/2024 11:00 PM CDT [facility] Blood BLOOD SPECIMEN / Unknown Butterfly / Unknown 01/02/2024 10:58 AM CDT 01/02/2024 11:01 AM CDT Zena Yuan MD SEND OUTS [facility] [address] [place] [address], * SEDIMENTATION RATE (01/01/2024 11:20 AM CDT) SEDIMENTATION RATE 9 <30 mm/hr 2023 10:20 PM CDT [facility] Blood BLOOD SPECIMEN / Unknown Venipuncture / Unknown 01/01/2024 11:20 AM CDT 01/01/2024 11:25 AM CDT Zena Yuan MD [facility] [address] [place] [address], * (ABNORMAL) CBC WITH AUTO DIFFERENTIAL (01/01/2024 11:20 AM CDT) WHITE BLOOD COUNT 5.6 4.5 - 11.0 thou/cu mm 01/01/2024 11:48 AM CDT [facility] RED BLOOD COUNT 3.94(L) 4.00 - 5.20 mil/cu mm 01/01/2024 11:48 AM CDT [facility] HEMOGLOBIN 11.7(L) 12.0 - 16.0 g/dL 01/01/2024 11:48 AM CDT [facility] HEMATOCRIT 34.5 33.0 - 51.0 % 01/01/2024 11:48 AM CDT [facility] MCV 88 80 - 100 fL 01/01/2024 11:48 AM CDT [facility] MCH 29.7 26.0 - 34.0 pg 01/01/2024 11:48 AM CDT [facility] MCHC 33.9 32.0 - 36.0 g/dL 01/01/2024 11:48 AM CDT [facility] RDW 12.6 11.5 - 15.5 % 01/01/2024 11:48 AM CDT [facility] PLATELET COUNT 182 140 - 440 thou/cu mm 01/01/2024 11:48 AM CDT [facility] MPV 10.5 6.5 - 11.0 fL 01/01/2024 11:48 AM CDT [facility] % NEUT 76.0 % 01/01/2024 11:48 AM CDT [facility] % LYMPH 12.8 % 01/01/2024 11:48 AM CDT [facility] % MONO 10.3 % 01/01/2024 11:48 AM CDT [facility] % EOS 0.7 % 01/01/2024 11:48 AM CDT [facility] % BASO 0.2 % 01/01/2024 11:48 AM CDT [facility] ABSOLUTE NEUTROPHILS 4.3 1.7 - 7.0 thou/cu mm 01/01/2024 11:48 AM CDT [facility] ABSOLUTE LYMPHOCYTES 0.7(L) 0.9 - 2.9 thou/cu mm 01/01/2024 11:48 AM CDT [facility] ABSOLUTE MONOCYTES 0.6 <0.9 thou/cu mm 01/01/2024 11:48 AM CDT [facility] ABSOLUTE EOSINOPHILS 0.0 <0.5 thou/cu mm 01/01/2024 11:48 AM CDT [facility] ABSOLUTE BASOPHILS 0.0 <0.3 thou/cu mm 01/01/2024 11:48 AM CDT [facility] Blood BLOOD SPECIMEN / Unknown Venipuncture / Unknown 01/01/2024 11:20 AM CDT 01/01/2024 11:25 AM CDT Zena Yuan MD HEMATOLOGY [facility] [address] [place] [address], * TSH WITH REFLEX (01/01/2024 11:20 AM CDT) TSH 2.89 0.27 - 4.20 uIU/mL 01/01/2024 11:44 PM CDT [facility] Blood BLOOD SPECIMEN / Unknown Venipuncture / Unknown 01/01/2024 11:20 AM CDT 01/01/2024 11:25 AM CDT Narrative [facility] - 01/01/2024 11:44 PM CDT In Adults, TSH values between 5.00 and 10.00 uIU/ml do not necessarily indicate the presence of Hypothyroidism. Correlation with clinical findings such as presence of goiter and/or Thyroperoxidase (TPO) Antibody may be helpful. For more information please refer to LE[place] 2004; 291: 228-238. Zena Yuan MD CHEMISTRY Performing Organization Address [facility] Co de Phone Number [facility] [address] [place] [address], * VITAMIN D 25 (DEFICIENCY) (01/01/2024 11:20 AM CDT) [facility] VITAMIN D TOTAL 79.1 20.0 - 80.0 ng/mL 01/02/2024 9:36 AM CDT [facility] Blood BLOOD SPECIMEN / Unknown Venipuncture / Unknown 01/01/2024 11:20 AM CDT 01/01/2024 11:25 AM CDT Narrative [facility] - 01/02/2024 9:36 AM CDT ? Vitamin D Status Deficiency: ? <20 ng/mL Insufficiency: ?20-29 ng/mL Sufficiency: ?30-80 ng/mL Possible Toxicity: ??>80 ng/mL Based on [place] [employer] recommendations Biotin supplements may cause clinically significant interference for this test assay. ??If interference is suspected, it is strongly recommended that biotin is discontinued for at least one week prior to retesting. Zena Yuan MD SEND OUTS Performing Organization Address [facility] Co de Phone Number [facility] [address] [place] [address], [place] * (ABNORMAL) C-REACTIVE PROTEIN (01/01/2024 11:20 AM CDT) Pathologist [facility] C-REACTIVE PROTEIN 2.3(H) <0.5 mg/dL 01/01/2024 11:44 PM CDT [facility] Blood BLOOD SPECIMEN / Unknown Venipuncture / Unknown 01/01/2024 11:20 AM CDT 01/01/2024 11:25 AM CDT Zena Yuan MD CHEMISTRY [facility] [address] [place] [address], * (ABNORMAL) COMP METABOLIC PANEL (01/01/2024 11:20 AM CDT) Pathologist [facility] SODIUM 136 136 - 145 mmol/L 01/02/2024 1:19 AM T [facility] POTASSIUM 3.7 3.5 - 5.1 mmol/L 01/02/2024 1:19 AM T [facility] CHLORIDE 95(L) 98 - 107 mmol/L 01/02/2024 1:19 AM T [facility] CO2,TOTAL 28 22 - 29 mmol/L 01/02/2024 1:19 AM T [facility] ANION GAP 13 5 - 18 01/02/2024 1:19 AM T [facility] GLUCOSE 135(H) 70 - 99 mg/dL 01/02/2024 1:19 AM T [facility] CALCIUM 13.1(HH) 8.8 - 10.2 mg/dL 01/02/2024 1:19 AM T [facility] BUN 25(H) 8 - 23 mg/dL 01/02/2024 1:19 AM T [facility] CREATININE 1.35(H) 0.50 - 0.90 mg/dL 01/02/2024 1:19 AM [facility] BUN/CREAT RATIO 19 10 - 20 1:19 AM CDT [facility] eGFR 39(L) >90 mL/min/1. 73m2 01/02/2024 1:19 AM T [facility] Comment:As of 2021, eG FR is calculated by the CKD-EPI creatinine equation without race adjustment. ??eGFR can be influenced by muscle mass, exercise, and diet. ??The reported eGFR is an estimation only and is only applicable if the renal function is stable. ALBUMIN 4.3 4.0 - 4.9 g/dL 01/02/2024 1:19 AM CDT [facility] PROTEIN,TOTAL 6.5 6.0 - 8.0 g/dL 01/02/2024 1:19 AM CDT [facility] BILIRUBIN,TOTAL 0.5 0.0 - 1.2 mg/dL 01/02/2024 1:19 AM CDT [facility] ALK PHOSPHATASE 91 35 - 104 IU/L 01/02/2024 1:19 AM T [facility] ALT (SGPT) 11 10 - 35 IU/L 01/02/2024 1:19 AM T [facility] AST (SGOT) 24 10 - 35 IU/L 01/02/2024 1:19 AM T [facility] Blood BLOOD SPECIMEN / Unknown Venipuncture / Unknown 01/01/2024 11:20 AM CDT 01/01/2024 11:25 AM CDT Zena Yuan MD CHEMISTRY [facility] [address] [place] [address], * HEMOGLOBIN A1C MONITORING (POCT) (01/01/2024 10:12 AM CDT) HEMOGLOBIN A1C MONITORING (POCT) 5.9 <=6.4 % 01/01/2024 10:33 AM CDT [facility] Blood BLOOD SPECIMEN / Unknown Venipuncture / Unknown 01/01/2024 10:12 AM CDT 01/01/2024 10:13 AM CDT Narrative [facility] - 01/01/2024 10:33 AM CDT ? (<=6.9%) [...] Anemias, Splenectomy ? Zena Yuan MD CHEMISTRY Performing Organization Address City/State/[facility] Co de Phone Number [facility] [address] [place] [address], * SCAN-RADIOLOGY REPORT (12/23/2023 12:00 AM CDT) [...] recommended in 3-5 years. Tashia Maldonado PA-C [facility] 03/09/2021 Narrative 03/09/2021 1:55 PM CDT XR DXA Bone Mineral Density (BMD) EXAM LOCATION: [facility] [address] [facility] [id number] PATIENT NAME: Kendal Pelayo DATE OF : 1940 EXAM DATE: 03/03/2021 [...] two scanners are made by the same [employer]. PROCEDURE: Dual-energy x-ray absorptiometry performed with routine [...] 0.6 Comparison to most recent scan ??in 2014: ??Decrease 3.3%. ?? RESULT FOREARM Left Forearm BMD: 0.799 g/cm2 T-Score: - 0.9 Z-Score: + 2.0 Comparison to most recent scan ??in 2014: ??Decrease 3.9%. ?? WHO criteria: Normal: T-score [...] Documents on File Type Date Recorded Patient Assisted Living Home Director Expl anation Healthcare Directive 04/06/2010 * Full [...] 11:59 AM 04/03/2013 2:53 PM Care Teams Curling Machine Operator Relationship Specialty Start Date End Date Zena Yuan MD [address] [place] [address] PCP - General Family Practice 09/30/13 [facility] 07/22/13 [facility] 01/28/11 Dr. Gilbert Knox 01/28/11
--- OUTSIDE RECORDS SUMMARY | 2024-02-20 15:47 | XMS_ITS ---
Author Organization [facility] Address [address] [place] [address] Care Team Providers Care University Dean Name Role Phone Unavailable Unavailable Unavailable Surgery Details Not on file Complications Check Surgery Details section. Procedure Estimated Blood Loss Check Surgery Details section. Procedure Findings Check Surgery Details section. Procedure Specimens Taken Check Surgery Details section.
--- OUTSIDE RECORDS SUMMARY | 2024-02-20 15:47 | XMS_ITS | Encounter Summary ---
Author Organization [facility] Address [address] [place] [address] Care Team Providers Care Unit Technician Name Role Phone Zena Yuan MD Primary Care Provider [phone] Reason for Visit * Therapeutic Imaging/IR (Urgent: 3-5 Days) - Closed Specialty Diagnoses / Procedures Referred By Wyatt t Referred To Contact Radiology. Diagnoses Peritoneal carcinomatosis (H) Procedures CT Paracentesis Initial CT Abdomen Retroperitoneal Biopsy IR Referral Helen Escalera MD [facility] [id number] Scan [address] [place] [address] Referral ID Status Reason Start Date Expiration Date Visits Re quested Visits Authorized [id number] Closed 01/09/2024 01/08/2025 1 1 Encounter Details Date Type Department Care Team (Late st Contact Info) Description 01/15/2024 10:07 AM CDT - 01/15/2024 11:59 PM CDT Hospital Encounter [facility] [address] [place] [id number] Helen Escalera MD [facility] [id number] [address] Peritoneal carcinomatosis (H) Discharge Disposition: Home or Self Care Social [...] Sign Reading Time Taken Comments Blood Pressure 154/66 01/15/2024 11:16 AM CDT Pulse 60 01/15/2024 11:16 AM CDT Temperature - - Respiratory Rate - - Oxygen Saturation 96% 01/15/2024 11:16 AM CDT Inhaled Oxygen Concentration - - Weight - - Height - - Body Mass Index - - documented in this encounter Progress Notes * Keila Liu RN - 01/15/2024 11:00 AM CDT Due to high risk of procedure, omental biopsy was not performed at this time. Paracentesis fluid was drained in CT. 700mls of opaque audi fluid was drained from the peritoneum. Patient tolerated theprocedure well. Fluid sent to lab for analysis. documented in this encounter Miscellaneous Notes * Pre-Procedure - Demetrius Hummel MD - 01/15/2024 11:08 AM CDT GENERAL PRE-PROCEDURE: Procedure: Omental biopsy or paracentesis Written consent obtained?: Yes Risks and benefits: Risks, benefits and alternatives were discussed Consent given by: Patient Patient states understanding of procedure being performed: Yes Patient's understanding of procedure matches consent: Yes Procedure consent matches procedure scheduled: Yes Expected level of sedation: Moderate Appropriately NPO: Yes Mallampati : Grade 1- soft palate, uvula, tonsillar pillars, and posterior pharyngeal wall visible Lungs: Lungs clear with good breath sounds bilaterally Heart: Normal heart sounds and rate History & Physical reviewed: History and physical reviewed and no updates needed Statement of review: I have reviewed the lab findings, diagnostic data, medications, and the plan for sedation documented in this encounter Plan of Treatment Not on file documented as of this encounter Procedures Procedure Name Priority Date/Time Associated Diagnosis Comments CT PARACENTESIS Routine 01/15/2024 11:50 AM CDT Peritoneal carcinomatosis (H) documented in this encounter Results * CT Paracentesis Initial (01/15/2024 11:50 AM CDT) Anatomical Region Laterality Modality Abdomen/Pelvis Computed Tomogra phy Impressions 01/15/2024 3:18 PM CDT IMPRESSION: 1. No omental mass suitable for CT-guided biopsy. 2. CT guided right lower quadrant paracentesis . DEMETRIUS HUMMEL MD Narrative 01/15/2024 3:18 PM CDT [facility] LOCATION: [facility] CLINICAL HISTORY: Peritoneal carcinomatosis ??. Patient presents [...] Procedure Note Demetrius Hummel MD - 01/15/2024 [facility] LOCATION: [facility] CLINICAL HISTORY: Peritoneal carcinomatosis . 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 When verbally ordered by prescriber during the procedure., Starting on Mon01/15/24 at 1117, For 1 dose, Dose to be divided into smaller volumes appropriate for the procedure. Provider to administer intradermally., IR Intra-procedure $Given by Other 01/15/2024 11:25 AM CDT 10 mLs documented in this encounter Care Teams Unit Technician Relationship Specialty Start Date End Date Zena Yuan MD [address] [place] [address] PCP - General Family Medicine 01/11/24 documented as of this encounter
--- OUTSIDE RECORDS SUMMARY | 2024-02-20 15:48 | XMS_ITS | Encounter Summary ---
Author Organization [facility] Address [address] [place] [address] Care Team Providers Care Event Specialist Product Demonstrator Name Role Phone Unavailable Primary Care Provider [...] patient reports bradycardia with the [place] in [place] and was placed on Norvasc by the physicians in [place]. She reports migraines have gone away with [...] Vision OS CDM Reports - EYEGEN Id: [id number] Status: Fnl documented in this encounter Plan of Treatment Not on file documented as of this encounter Visit Diagnoses Not on filedocumented in this encounter
--- OUTSIDE RECORDS SUMMARY | 2024-02-20 15:48 | XMS_ITS | Encounter Summary ---
Author Organization [facility] Address [address] [place] [address] Care Team Providers Care Construction Flagger Name Role Phone Unavailable Primary Care Provider [...] disease. Neck X-ray negative. CT scan at [facility] negative. No neurologic evaluation. + photophobia with severe h/a, no change in vision/fortification spectra; migraine h/a 20 years ago on OCP, resolved off OCP. No smoking. No conj injection noted with increased tearing. 1 episode left mid-facial pain last year dx'd clinically as max sinusitis, resolved with oral Ab tx.No significant incr pain on EOM. Dr. Ramon Molina of [place] follows Mrs. Marcus from the ophthalmic viewpoint and Dr. [facility] from the medical viewpoint. IMPRESSION / REPORT [...] cavernous sinus. Mrs. Mae is traveling to [place] 07/[place] and at her request we will try to coordinate her evaluation here priorto departure. If this is not possible, Mrs. Marcus indicates she has been seen at [facility] and would be happyto return there for completion of her evaluation. I have asked her to call me after she has her CT if done here, and have taken the liberty of giving Mrs. Mae the name of Dr. Dustin Brennan as an outstanding specialist in terms of her ongoing evaluation if necessary at [facility]. Letter dict to Miladys Pittman, and Mika. corresp: August 04, 2003 Javier Molina M.D. [facility] [address] [address] RE: Mrs. Dipika Franco #: [phone] : [phone] [address] Molina: Thank you very much for referring Mrs. Franco for orbital and oculoplastic evaluation. Enclosed, please find a copy of her consult note which further outlines her exam findings here. With your permission, Mrs. Franco's further evaluation will be coordinated through [facility] and [facility], in view of her upcoming travels to [place] this winter. We will certainly keep you posted concerning her subsequent course here. I have taken the liberty of forwarding a copy of this note to her senior quantity surveyor, Dr. Armand Rendon, as requested by Mrs. Franco. Thank you, again, for allowing me to share in the care of this most pleasant patient. Best wishes. Sincerely, Mikey Murillo:sr enclosure - cdm report of 07/17/03 cc: Dr. Armand Rendon, [place], [place] Dr. Dustin Brennan, [facility] DIAGNOSIS #1 left supraorbital/periorbital/hemicranial pain #2 intermittent tearing OS with patent lacrimal outflow system. #3 left rhinorrhea CDM Reports - EYEGEN Id: [id number] Status: Fnl documented in this encounter Plan of Treatment Not on file documented as of this encounter Visit Diagnoses Not on filedocumented in this encounter
[2024-02-20 16:09] LABS: Ionized Calcium* 1.74 mmol/L (1.11-1.30)
[2024-02-20 16:11] LABS: Basophils Absolute Auto 0.01 K/uL (0.00-0.30); Basophils Percent Auto 0.2 % (0.0-3.0); Hematocrit 29.7 % (33.0-51.0); Hemoglobin* 9.6 gm/dL (12.0-16.0); Immature Granulocytes Abs Auto 0.02 K/uL (0.00-0.30); Immature Granulocytes Pct Auto 0.3 %; Lymphocytes Percent Auto 2.8 % (20-44); Mean Corpuscular HGB Conc 32 gm/dL (32-36); Mean Corpuscular Hemoglobin 28 pg (26-34); Mean Corpuscular Volume 88 fL (80-100); Monocytes Percent Auto 7.3 % (0.0-11.0); Neutrophils Percent Auto 89.4 % (42.0-72.0); Platelet Count* 177 K/uL (140-440); RDW Coefficient of Variation % 13.1 % (11.5-15.5); Red Blood Count 3.39 m/uL (4.00-5.20); White Blood Count* 6.18 K/uL (4.50-11.00)
[2024-02-20 16:12] LABS: Slide Review Reflex No
[2024-02-20] MEDS: 0.9 % SODIUM CHLORIDE 1000 ml 1,000 ML IV (16:12)
[2024-02-20 16:29] LABS: Albumin* 3.6 g/dL (3.3-5.0); Chloride* 99 mmol/L (96-114); Sodium* 133 mmol/L (135-149)
[2024-02-20 16:30] LABS: Potassium* 3.9 mmol/L (3.6-5.1)
[2024-02-20 16:32] LABS: Alanine Aminotransferase* 11 U/L (4-35); Alkaline Phosphatase* 62 U/L (40-150); Anion Gap 6 mEq/L (7-15); Aspartate Amino Transferase* 23 U/L (12-35); Bilirubin Total* 0.6 mg/dL (0.1-1.5); Blood Urea Nitrogen* 45 mg/dL (7-30); Carbon Dioxide* 28 mmol/L (20-32); Creatinine* 1.6 mg/dL (0.5-1.5); Est. Creatinine Clearance* 21.65; Estimated Glomerular Filt Rate 32 ml/min; Glucose* 202 mg/dL (60-115); Lipase* 107 U/L (23-300)
[2024-02-20 16:33] LABS: Magnesium* 1.3 mg/dL (1.5-2.6)
[2024-02-20 17:29] VITALS: BP 172/75; PULSE 49; RESP 18; TEMP 36.4; O2SAT 94; O2SAT 97; BMI 26.1
[2024-02-20 17:38] LABS: Uric Acid* 10.2 mg/dL (2.2-8.4)
[2024-02-20] MEDS: allopurinoL 100 MG TABLET PO (18:15)
[2024-02-20] MEDS: ZOLEDRONIC ACID 4 MG in 0.9 % SODIUM CHLORIDE 100 ml 100 ML 420 MG IVPB (18:16)
[2024-02-20] MEDS: POTASSIUM CHLORIDE 10 MEQ CAPSULE ER 20 MEQ PO (18:16)
--- NOTE | 2024-02-20 19:17 | PM.IMHP1 ---
Hospitalist- H&P: HPI History of Present Illness Date Seen: 02/20/24 Chief complaint: High calcium Narrative: Dipika Franco is a 83 year old woman with known follicular lymphoma stage IV, grade 1-2, presents today at the behest of her oncologist for further assessment and management of hypercalcemia. Patient received her 1st cycle of chemotherapy yesterday with Rituxan and Bendeka. Was to have received day 2 today, Bendeka, but did not receive it due to creatinine rising from 1.8 yesterday to 2.1 today. Was given 1 L of IV fluids. Later in the day results of calcium returned elevated at 13.4. At this juncture patient was advised to present to the emergency department for further assessment and management. When patient was 1st diagnosed with her follicular lymphoma stage IV, grade 1-2, she presented with hypercalcemia, weight loss, night sweats, early satiety. Reportedly was treated with IV fluids and calcitonin. Patient indicates that the sense of weakness and fatigue might have improved after that 1st presentation only somewhat but after relatively short period of time have continued to evolve. She notes increasing somnolence, disinterest in eating and intermittent nausea without vomiting. Has constipation. Does consume 1 can of Ensure nutritional supplement twice daily. Notes longstanding urinary urgency. More recently she has had less control she thinks because she is too weak to get to the bathroom in time. Denies fevers, rigors, diaphoresis. Denies dysuria or hematuria. Denies diarrhea. No recent trauma, injury, or infection. Review of Systems Status of ROS: Reports: 10 or more systems reviewed and unremarkable except as noted in History and below [facility] Medical History Carcinomatosis ?C80.0 - Disseminated malignant neoplasm, unspecified (ICD-10) Unintentional weight loss ?R63.4 - Abnormal weight loss (ICD-10) Unexplained night sweats ?R61 - Generalized hyperhidrosis (ICD-10) Osteoarthritis of carpometacarpal joint of right thumb ?M18.11 - Unilateral primary osteoarthritis of first carpometacarpal joint, right hand (ICD-10) Vitamin D deficiency (01/19/10) ?E55.9 - Vitamin D deficiency, unspecified (ICD-10) Parotitis (06/02/11) ?K11.20 - Sialoadenitis, unspecified (ICD-10) Adenoma of left adrenal gland (01/19/10) ?D35.02 - Benign neoplasm of left adrenal gland (ICD-10) Diverticulosis (01/19/10) ?K57.90 - Diverticulosis of intestine, part unspecified, without perforation or abscess without bleeding (ICD-10) Cystocele (01/19/10) Hypertension (01/19/10) ?I10 - Essential (primary) hypertension (ICD-10) Hyperlipidemia (01/19/10) ?E78.5 - Hyperlipidemia, unspecified (ICD-10) Diabetes (01/19/10) ?E11.9 - Type 2 diabetes mellitus without complications (ICD-10) Urinary incontinence (01/19/10) ?R32 - Unspecified urinary incontinence (ICD-10) Arthritis (01/19/10) ?M19.90 - Unspecified osteoarthritis, unspecified site (ICD-10) Surgical History 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) ?Z96.651 - Presence of right artificial knee joint (ICD-10) History of hip surgery (08/29/23) ?Z98.890 - Other specified postprocedural states (ICD-10) H/O oophorectomy (01/19/10) History of hysterectomy (01/19/10) ?Z90.710 - Acquired absence of both cervix and uterus (ICD-10) H/O foot surgery (01/19/10) ?Z98.890 - Other specified postprocedural states (ICD-10) Previous back surgery (01/19/10) ?Z98.890 - Other specified postprocedural states (ICD-10) History of facial surgery (01/19/10) ?Z98.890 - Other specified postprocedural states (ICD-10) Hx of cholecystectomy (01/19/10) ?Z90.49 - Acquired absence of other specified parts of digestive tract (ICD-10) Hx of appendectomy (01/19/10) ?Z90.49 - Acquired absence of other specified parts of digestive tract (ICD-10) Social History What is your current living situation?: I presently have a place to live Problems where you live: no known problems Problems where you live details: n/a In the past 12 months, utilities in danger of being shut off: no In past 12 months, lack of transportation kept you from medical appts, meetings, work, or getting things needed for daily living: no In the past 12 mos, have been you worried that your food would run out before you had money to buy more?: never true In the past 12 mos, the food you bought just didn't last and you didn't have money to buy more?: never true Highest level of school completed/degree received: high school graduate Smoking Status: Never smoker Second hand tobacco smoke exposure: No How often do you have a drink containing alcohol: never How often do you have six or more drinks on one occasion: Never AUDIT-C Alcohol total score: 0 Non-prescribed substance use: denies use Caffeine: No How often does anyone, including family, friends and others, physically hurt you: never How often does anyone, including family, friends and others, insult or talk down to you: never How often does anyone, including family, friends and others, threaten you with harm: never How often does anyone, including family, friends and others, scream or curse at you: never service: No Meds Home Medications and Allergies Home Medications ?Medication ?Instructions ?Recorded ?Confirmed ?Type acetaminophen 325 mg tablet 650 mg PO Q4H PRN 01/03/24 02/20/24 History allopurinol 100 mg tablet 100 mg PO DAILY 02/20/24 02/20/24 History bendamustine IV 02/20/24 History pegfilgrastim 6 mg/0.6 mL 6 mg subcut 02/20/24 History (deliverable) wearable subcutaneous injector (Neulasta Onpro) prochlorperazine maleate 5 mg 5 - 10 mg PO Q6H PRN 02/20/24 02/20/24 History tablet rituximab 10 mg/mL IV 02/20/24 History concentrate,intravenous (Rituxan) sennosides 8.6 mg tablet (senna) 8.6 - 17.2 mg PO BID constipation 06/04/24 06/04/24 History Allergies Allergy/AdvReac Type Severity Reaction Status Date / Time metformin Allergy Verified 12/25/23 09:51 morphine Allergy Verified 12/25/23 09:51 niacin Allergy Verified 12/25/23 09:51 Sulfa (Sulfonamide Allergy Verified 12/25/23 09:51 Antibiotics) Exam Narrative: Exam Narrative: I examined patient in her hospital room with her son, James, at her side. Appears comfortable and in no acute distress. Vision is adequate in hearing is moderately impaired but sufficient. Alert, oriented to self, place, time, situation. Friendly, articulate, cooperative. Tympanic membranes and external auditory canals are normal. Midline nasal septum. Dry buccal mucosa. Multiple missing teeth. Dentition in fair repair. No obvious active infection. Conjugate gaze. Extraocular muscles are intact. Pupils are equally round and reactive to light and accommodation. No icterus. No jaundice. No cyanosis. No skin rashes. Neck is supple. Midline trachea. No head neck lymphadenopathy. Lungs are clear to auscultation without wheezing, rhonchi, or rales. Chest wall excursions are full. No CVA tenderness to thumping. Heart tones with regular rhythm, normal S1-S2, without murmur, gallop, or rub. Abdomen with active bowel sounds. Nodularity in left upper quadrant with minimal tenderness. Otherwise benign. Extremities without edema. No obvious focal motor neurologic deficits. Cranial nerves 3-12 grossly normal. No tremor, asterixis, or ataxia. Const: Vital Signs, click to edit/add: Vital Signs - 24 hr 02/20/24 15:15 02/20/24 17:29 02/20/24 17:29 Temperature 97.9 F 97.6 F Pulse Rate [Pulse Oximeter] 98 Pulse Rate [Right Pulse Oximeter] 49 L Respiratory Rate 16 18 18 Blood Pressure [Ri ght Arm] 172/75 H Blood Pressure [Ri ght Upper Arm] 145/55 H Pulse Oximetry 98 97 94 Oxygen Delivery Me thod Room Air Room Air Room Air Hospitalist - H&P: Result Labs Labs: Short CBC 02/20/24 Range/Units 16:02 WBC 6.18 (4.50-11.00) K/uL Hgb 9.6 L (12.0-16.0) gm/dL Hct 29.7 L (33.0-51.0) % Plt Count 177 (140-440) K/uL BMP 02/20/24 16:02 Sodium 133 L Potassium 3.9 Chloride 99 Carbon Dioxide 28 BUN 45 H Creatinine 1.6 H Glucose 202 H Calcium 13.0 H* Liver Function 02/20/24 Range/Units 16:02 Total Bilirubin 0.6 (0.1-1.5) mg/dL AST 23 (12-35) U/L ALT 11 (4-35) U/L Alkaline Phosphatase 62 (40-150) U/L Albumin 3.6 (3.3-5.0) g/dL ECG Attestation: I personally reviewed and interpreted this ECG as follows: ECG interpretation date: 02/20/24 Interpretation: Sinus bradycardia with occasional APC. Nonspecific T-wave abnormality. No findings of ischemia or infarction. Imaging CT scan - chest, abdomen, pelvis: Radiologist's impression: December 2023: IMPRESSION: 1. Diffuse adenopathy likely metastatic. 2. Omental carcinomatosis. 3. Peritoneal nodularity with thickening and mild enhancement. 4. Mild to moderate pelvic ascites. Assessment and Plan Assessment and plan (1) Humoral hypercalcemia of malignancy: Problem comment: -normal saline IV. -zoledronic acid IV. -monitor. -continue to work with her oncologist. Status: Acute (2) Follicular lymphoma: Problem comment: -stage IV, grade 1-2. -followed by Dr. Velarde, [facility]. -cycle #1. Of chemotherapy started 02/19/2024: Rituxan and Bendeka IV. -did not receive chemotherapy on 02/20/2024 due to acute kidney injury. Status: Acute (3) Carcinomatosis: Problem comment: CT shows omental carcinomatosis, diffuse adenopathy likely metastatic, pelvic ascites Reported 50 lb weight loss since May 2023, poor appetite, night sweats, generalized weakness S/p hysterectomy/oophorectomy in her 30s Outpatient follow-up with [facility] in [place] (contacted, records forwarded. They will call patient with appointment information) Status: Acute (4) Malnourished: Problem comment: -Severe, consulted by Nutrition -Dietary recommendations made, Ensure supplements -dietary consultation while in the hospital again Status: Acute (5) Anemia: Status: Acute (6) Acute kidney injury: Problem comment: -IV fluids. Monitor. -treat for tumor lysis syndrome with allopurinol. Status: Acute Plan 1. Reviewed with patient and her sonJames. 2. Plan as specified above. 3. Continue with other supportive efforts. 4. Patient and son agreeable with above stated plans and recommendations. Total Time Spent Total Time Spent: 55 minutes
[2024-02-20] MEDS: 0.9 % SODIUM CHLORIDE 1000 ml 1,000 ML 125 ML IV (19:27)
[2024-02-20 19:28] VITALS: BP 143/46; PULSE 53; RESP 16; TEMP 36.5; O2SAT 96
[2024-02-20] MEDS: SENNOSIDES 1 TAB TABLET PO (20:30)
[2024-02-20 23:17] VITALS: BP 133/53; PULSE 53; RESP 16; TEMP 36.3; O2SAT 94
[2024-02-20 23:18] VITALS: RESP 16; O2SAT 94
[2024-02-20] MEDS: MAGNESIUM IV 2 GM/50 ML PIGGYBACK IVPB (23:43)
[2024-02-20 23:48] VITALS: PULSE 53
[2024-02-21] VITALS (10 sets, daily range): BP systolic 135–174; BP diastolic 50–70; PULSE 41–59; RESP 14–18; TEMP 36.1–36.5; O2SAT 93–98; BMI 28.9
[2024-02-21] MEDS: ACETAMINOPHEN 325 MG TABLET 650 MG PO (03:47)
[2024-02-21] MEDS: 0.9 % SODIUM CHLORIDE 1000 ml 1,000 ML 125 ML IV (06:02)
--- NOTE | 2024-02-21 06:38 | PC.NURSE ---
End of shift [id number]: A&O w/ some forgetfulness but pleasant and cooperative. bradycardic VS otherwise stable w/ sats >90% on RA. Denies pain. Up w/ SBA FWW and GB. Tolerates well. Using call light appropriately.
[2024-02-21 06:45] LABS: HCO3 VBG 26 mmol/L (21-28); Ionized Calcium* 1.64 mmol/L (1.11-1.30); PCO2 VBG 40 mmHG (40-50); PO2 VBG 56.4 mmHG (25-47); pH VBG 7.418 (7.32-7.43)
[2024-02-21 06:56] LABS: Hematocrit 23.7 % (33.0-51.0); Mean Corpuscular HGB Conc 33 gm/dL (32-36); Mean Corpuscular Hemoglobin 29 pg (26-34); Mean Corpuscular Volume 88 fL (80-100); Platelet Count* 154 K/uL (140-440); Red Blood Count 2.68 m/uL (4.00-5.20); White Blood Count* 4.44 K/uL (4.50-11.00)
[2024-02-21 07:09] LABS: Chloride* 105 mmol/L (96-114); Potassium* 3.6 mmol/L (3.6-5.1); Sodium* 134 mmol/L (135-149)
[2024-02-21 07:12] LABS: Anion Gap 3 mEq/L (7-15); Blood Urea Nitrogen* 43 mg/dL (7-30); Carbon Dioxide* 26 mmol/L (20-32); Creatinine* 1.5 mg/dL (0.5-1.5); Est. Creatinine Clearance* 24.11; Estimated Glomerular Filt Rate 34 ml/min; Glucose* 113 mg/dL (60-115)
[2024-02-21 07:13] LABS: Calcium* 11.7 mg/dL (8.4-10.6); Magnesium* 1.9 mg/dL (1.5-2.6); Phosphorus* 4.1 mg/dL (2.5-4.5); Uric Acid* 9.8 mg/dL (2.2-8.4)
[2024-02-21 07:15] LABS: C Reactive Protein* 2.6 mg/dL (0.5-1.0)
[2024-02-21 07:18] LABS: Hemoglobin* 7.7 gm/dL (12.0-16.0)
[2024-02-21 07:19] LABS: Slide Review Reflex No
[2024-02-21] MEDS: MAGNESIUM OXIDE 400 MG TABLET PO ×2 (09:17→21:14)
[2024-02-21] MEDS: allopurinoL 100 MG TABLET PO ×3 (09:17→21:14)
[2024-02-21] MEDS: POTASSIUM CHLORIDE 10 MEQ CAPSULE ER 20 MEQ PO ×2 (09:17→19:22)
[2024-02-21] MEDS: SODIUM CHLORIDE 0.9 % (FLUSH) 10 ML SYRINGE 5 ML IVF (09:17)
[2024-02-21] MEDS: SENNOSIDES 1 TAB TABLET PO ×2 (09:17→21:13)
--- NOTE | 2024-02-21 10:15 | CRLHL7_ITS ---
For Patients: As a result of the Century Cures Act, medical imaging exams and procedure reports are released immediately into your electronic medical record. You may view this report before your referring provider. If you have questions, please contact your health care provider. INDICATION: Rising creatinine, history of lymphoma and chemotherapy. TECHNIQUE: Ultrasound renal. Burgos-scale and color Doppler sonographic images were acquired of the kidneys and urinary bladder. COMPARISON: None FINDINGS: Right Kidney: Size: 12.7 x 4.0 x 5.2 centimeters. Normal echogenicity without hydronephrosis. No masses or nephrolithiasis seen. Left Kidney: Size: 13.1 x 4.4 x 3.7 centimeters. Normal echogenicity without hydronephrosis. Division of the medullary portion of the kidney questioned, possibly part of a duplication anomaly. Small ascites. IMPRESSION: 1. No evidence of hydronephrosis. 2. Small amount of ascites. Dictated by Antonio Martines MD @ 02/21/2024 8:00:23 AM (Electronically Signed)
--- NOTE | 2024-02-21 12:36 | PM.IMPN1 ---
Progress Note: A&P Assessment and plan (1) Humoral hypercalcemia of malignancy: Problem details: - normal saline IV, continue this and monitor - zoledronic acid IV given 02/20/24 Status: Acute (2) Acute kidney injury: Problem details: - IV fluids, Monitor. - treat for tumor lysis syndrome with allopurinol - uric acid and creatinine improving - reviewed with Dr. Velarde of Oncology - he recommends Respiricase for tumor lysis syndrome, we are unable to get this through pharmacy Status: Acute (3) 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 - followed by Dr. Velarde, [place] [facility]. - cycle #1. Of chemotherapy started 02/19/2024: Rituxan and Bendeka IV. - did not receive chemotherapy on 02/20/2024 due to acute kidney injury. Status: Acute (4) Carcinomatosis: Problem details: - CT shows omental carcinomatosis, diffuse adenopathy likely metastatic, pelvic ascites - Reported 50 lb weight loss since May 2023, poor appetite, night sweats, generalized weakness - S/p hysterectomy/oophorectomy in her 30s - Outpatient follow-up with [facility] in [place] (Dr. Velarde) Status: Acute (5) Malnourished: Problem details: - Severe, as evidenced by weight loss and recent dx of lymphoma - Dietary recommendations made, Ensure supplements - dietary consultation while in the hospital again Status: Acute (6) Anemia: Problem details: - hemoglobin down to 7.7 on 02/21/2024 - transfuse 1 unit PRBCs, monitor stools, PPI Status: Acute Plan - per above - reviewed with Dr. Velarde (Oncology) by phone - son updated at bedside, questions answered - likely home tomorrow if labs continue to improve Subjective Date Seen: 02/21/24 Interval history: Dipika's admitted to the hospital last night at the behest of her oncology team for acute abnormal lab findings. She was recently diagnosed with follicular lymphoma and had her 1st cycle of chemotherapy yesterday with Rituxan and Bendeka. Labs obtained at oncology office revealed acute kidney injury (creatinine of 2.1 prior to admission) and hypercalcemia (calcium of 13.4). In our emergency room, she has also noted a uric acid of greater than 10. This morning, labs are all improving and with the exception of hemoglobin (down to 7.7 from > 10) and patient feels better. She is also amenable to 1 unit of PRBCs. She has recently been constipated; denies any recent melanotic stools. Exam Narrative: Exam Narrative: GEN: Alert and oriented, sitting comfortably in bedside chair HEENT: EOMIs bilaterally, no scleral icterus CV: RRR, No concerning murmurs R: LCTA bilaterally without concerning wheezing, air movement is adequate Ext: He her Neulasta autoinjector still present on her left triceps; it is still blinking, which means that has not yet released her Neulasta dose Skin: Scattered bruising on extremities, no concerning skin lesions Neuro: Nonfocal Psych: Appropriate Const: Vital Signs, click to edit/add: Vital Signs - 24 hr 02/20/24 15:15 02/20/24 17:29 02/20/24 17:29 Temperature 97.9 F 97.6 F Pulse Rate Pulse Rate [Pulse Oximeter] 98 Pulse Rate [Right Pulse Oximeter] 49 L Respiratory Rate 16 18 18 Blood Pressure [Ri ght Arm] 172/75 H Blood Pressure [Ri ght Upper Arm] 145/55 H Pulse Oximetry 98 97 94 Oxygen Delivery Sc thod Room Air Room Air Room Air 02/20/24 19:28 02/20/24 23:17 02/20/24 23:18 Temperature 97.7 F 97.4 F L Pulse Rate Pulse Rate [Pulse Oximeter] Pulse Rate [Right Pulse Oximeter] 53 L 53 L Respiratory Rate 16 16 16 Blood Pressure [Ri ght Arm] 143/46 H 133/53 L Blood Pressure [Ri ght Upper Arm] Pulse Oximetry 96 94 94 Oxygen Delivery Sc thod Room Air Room Air Room Air 02/20/24 23:48 02/21/24 03:53 02/21/24 07:00 Temperature Pulse Rate 53 L Pulse Rate [Pulse Oximeter] Pulse Rate [Right Pulse Oximeter] 45 L 57 L Respiratory Rate 16 18 Blood Pressure [Ri ght Arm] 157/59 H Blood Pressure [Ri ght Upper Arm] Pulse Oximetry 98 Oxygen Delivery Sc thod Room Air 02/21/24 07:00 02/21/24 07:00 02/21/24 07:00 Temperature 97.4 F L Pulse Rate 41 L Pulse Rate [Pulse Oximeter] Pulse Rate [Right Pulse Oximeter] 57 L Respiratory Rate 18 18 Blood Pressure [Ri ght Arm] 135/50 L Blood Pressure [Ri ght Upper Arm] Pulse Oximetry 96 96 Oxygen Delivery Me thod Room Air Room Air 02/21/24 11:00 Temperature 97.7 F Pulse Rate Pulse Rate [Pulse Oximeter] Pulse Rate [Right Pulse Oximeter] 55 L Respiratory Rate 18 Blood Pressure [Ri ght Arm] 145/61 H Blood Pressure [Ri ght Upper Arm] Pulse Oximetry 97 Oxygen Delivery Me thod Room Air Labs Labs: Laboratory Results - last 24 hr 02/20/24 02/20/24 02/21/24 16:02 16:59 05:56 WBC 6.18 4.44 L RBC 3.39 L 2.68 L Hgb 9.6 L 7.7 L* Hct 29.7 L 23.7 L MCV 88 88 MCH 28 29 MCHC 32 33 RDW Coeff of Will 13.1 Plt Count 177 154 Neut % (Auto) 89.4 H Lymph % (Auto) 2.8 L [place] % (Auto) 7.3 Eos % (Auto) 0.0 Baso % (Auto) 0.2 Neut # (Auto) 5.50 Lymph # (Auto) 0.20 L [place] # (Auto) 0.50 Eos # (Auto) 0.00 Baso # (Auto) 0.01 Abs Immat Gran (auto) 0.02 Imm/Tot Granulo (auto) 0.3 VBG pH 7.418 VBG pCO2 40 VBG pO2 56.4 H VBG HCO3 26 Sodium 133 L 134 L Potassium 3.9 3.6 Chloride 99 105 Carbon Dioxide 28 26 Anion Gap 6 L 3 L BUN 45 H 43 H Creatinine 1.6 H 1.5 Estimated Creat Clear 21.65 24.11 Estimated GFR 32 34 Glucose 202 H 113 Lactate 1.0 Uric Acid 10.2 H 9.8 H Calcium 13.0 H* 11.7 H Ionized Calcium Zonia 1.74 H 1.64 H Phosphorus 4.1 Magnesium 1.3 L 1.9 Total Bilirubin 0.6 AST 23 ALT 11 Alkaline Phosphatase 62 C-Reactive Protein 2.6 H Total Protein 6.0 Albumin 3.6 Lipase 107 Lab Acknowledgement Test Added Blood Type A Positive Antibody Screen NEGATIVE Crossmatch ([facility]) See Detail
[2024-02-21] MEDS: FUROSEMIDE 10 MG/ML inj 20 MG IV (15:07)
[2024-02-21] MEDS: 0.9 % SODIUM CHLORIDE 1000 ml 1,000 ML 75 ML IV (15:09)
--- NOTE | 2024-02-21 19:26 | PC.NURSE ---
Addendum entered by Antoinette Aragon RN 02/21/24 19:29: Patient 1 unit of PRBC and tolerated infusion well. No infusion reaction noted. Original Note: End of shift: Patient is A&O, pleasant and cooperative. Bradycardic on tele, RA, VSS, and Denies pain. Up w/ SBA FWW and GB. Tolerates well. Using call light appropriately. Tolerating a reg. diet. On Chemo Precautions.
[2024-02-22] VITALS (9 sets, daily range): BP systolic 149–174; BP diastolic 58–71; PULSE 55–71; RESP 14–18; TEMP 36.2–36.8; O2SAT 93–97
--- NOTE | 2024-02-22 00:19 | PC.NURSE ---
End of shift [id number]; Alert and oriented x 3. Patient reports feeling weak and worn out, she feels that she is feeling worse than admission. Diamond Cleaner sat with patient as she discussed her recent health findings and that she doesn't feel like continuing to pursue chemo due to how she is feeling. Diamond Cleaner provided therapeutic listening while patient discussed her brother's recent passing as well as losing a sister in a 2 week span and then finding out about her lymphoma diagnosis. She was wanting to pursue chemo at first diagnosis but is now questioning herself if she made the right decision. Diamond Cleaner questioned patient if she has discussed her feelings with her family which she states she hasn't. Dr. Newman updated with patients conversation, MD will update morning staff to discuss goals of care with patient.
--- NOTE | 2024-02-22 06:03 | PC.NURSE ---
Pt alert and oriented x3 with some forgetfulness. Afebrile. Room air. Pt denies pain, chest pain, SOB, and N/V. Pt is up SBA with walker and gait belt, voiding, tolerating a regular diet. Pt slept throughout most of night. Pt reports I feel like I got a good amount of sleep in last tonight.
[2024-02-22 06:22] LABS: Ionized Calcium* 1.65 mmol/L (1.11-1.30)
[2024-02-22] MEDS: ACETAMINOPHEN 325 MG TABLET 650 MG PO ×2 (06:22→14:19)
[2024-02-22 06:28] LABS: Basophils Percent Auto 0.1 % (0.0-3.0); Eosinophils Percent Auto 0.2 % (0.0-7.0); Hematocrit 30.6 % (33.0-51.0); Immature Granulocytes Pct Auto 0.6 %; Lymphocytes Percent Auto 1.3 % (20-44); Mean Corpuscular HGB Conc 33 gm/dL (32-36); Mean Corpuscular Hemoglobin 29 pg (26-34); Mean Corpuscular Volume 88 fL (80-100); Monocytes Percent Auto 5.5 % (0.0-11.0); Neutrophils Percent Auto 92.3 % (42.0-72.0); Platelet Count* 165 K/uL (140-440); RDW Coefficient of Variation % 13.6 % (11.5-15.5); Red Blood Count 3.49 m/uL (4.00-5.20); White Blood Count* 17.05 K/uL (4.50-11.00)
[2024-02-22 06:29] LABS: Slide Review Reflex No
[2024-02-22 06:42] LABS: Albumin* 3.1 g/dL (3.3-5.0); Chloride* 104 mmol/L (96-114); Sodium* 134 mmol/L (135-149)
[2024-02-22 06:43] LABS: Potassium* 3.6 mmol/L (3.6-5.1)
[2024-02-22 06:44] LABS: Creatinine* 1.5 mg/dL (0.5-1.5); Est. Creatinine Clearance* 24.11; Estimated Glomerular Filt Rate 34 ml/min
[2024-02-22 06:45] LABS: Alanine Aminotransferase* 10 U/L (4-35); Alkaline Phosphatase* 67 U/L (40-150); Anion Gap 4 mEq/L (7-15); Aspartate Amino Transferase* 22 U/L (12-35); Bilirubin Total* 0.7 mg/dL (0.1-1.5); Blood Urea Nitrogen* 40 mg/dL (7-30); Carbon Dioxide* 26 mmol/L (20-32); Glucose* 105 mg/dL (60-115); Total Protein* 5.3 g/dL (6.0-8.3); Uric Acid* 9.6 mg/dL (2.2-8.4)
[2024-02-22 06:46] LABS: Magnesium* 1.6 mg/dL (1.5-2.6)
[2024-02-22 07:00] LABS: Calcium* 12.1 mg/dL (8.4-10.6)
[2024-02-22] MEDS: POTASSIUM CHLORIDE 10 MEQ CAPSULE ER 20 MEQ PO ×2 (07:48→17:48)
[2024-02-22] MEDS: allopurinoL 100 MG TABLET PO ×3 (08:57→20:39)
[2024-02-22] MEDS: SENNOSIDES 1 TAB TABLET PO (08:57)
[2024-02-22] MEDS: MAGNESIUM OXIDE 400 MG TABLET PO ×2 (08:57→20:39)
--- NOTE | 2024-02-22 12:54 | PM.IMPN1 ---
Progress Note: A&P Assessment and plan (1) Tumor lysis syndrome: Problem details: - as evidenced by VEE, hyperuricemia, hypercalcemia - currently on Allopurinol thrice daily, IVFs, daily lab monitoring - can repeat Zoledronic Acid next week for hypercalcemia - Oncology (Dr Velarde) recommends Respiricase; we are unable to obtain medication per pharmacy - if labs worsen or patient becomes unstable, consider transfer to tertiary care facility - called and requested bed at [place] ([facility]) on 02/21, no bed available and patient stable at this time Status: Acute (2) Acute kidney injury: Problem details: - continue IVFs and monitoring - Creatinine currently stable at 1.5 - UOP appropriate Status: Acute (3) Humoral hypercalcemia of malignancy: Problem details: - normal saline IV, continue this and monitor - zoledronic acid IV given 02/20/24 Status: Acute (4) Anemia: Problem details: - hemoglobin down to 7.7 on 02/21/2024 - transfused 1 unit PRBCs on 02/20, Hgb up to 10 on 02/21 - monitor stools, PPI Status: Acute (5) 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 - followed by Dr. Velarde, [place] [facility]. - cycle #1 of chemotherapy initiated 02/19/2024: Rituxan and Bendeka IV - did not receive chemotherapy on 02/20/2024 due to acute kidney injury. Status: Acute (6) Carcinomatosis: Problem details: - CT shows omental carcinomatosis, diffuse adenopathy likely metastatic, pelvic ascites - Reported 50 lb weight loss since May 2023, poor appetite, night sweats, generalized weakness - S/p hysterectomy/oophorectomy in her 30s - Outpatient follow-up with [facility] in [place] (Dr. Velarde) scheduled Status: Acute (7) Malnourished: Problem details: - Severe, as evidenced by weight loss and recent dx of lymphoma - Dietary recommendations made, Ensure supplements - dietary consultation while in the hospital again Status: Acute (8) Mild cognitive impairment: Problem details: - OT following, [place] - recommend supervision at home upon discharge (patient lives independently in [facility] locally), patient and family aware Status: Acute Plan - per above - teds, SCDs, renally dosed Lovenox, PPI - updating Dr. Velarde and team at [facility] ([phone]) daily - son Bill updated by phone, questions answered Subjective Date Seen: 02/22/24 Interval history: Dipika was admitted to the hospital on 02/19 at the behest of her oncology team for acute abnormal lab findings concerning for tumor lysis syndrome. She was recently diagnosed with follicular lymphoma and had her 1st cycle of chemotherapy on 02/18 with Rituxan and Bendeka. Labs obtained at oncology office revealed acute kidney injury (creatinine of 2.1 prior to admission) and hypercalcemia (calcium of 13.4). In our emergency room, she was also noted an elevated uric acid. The yesterday, hemoglobin is noted to be down to 7.7. No evidence of acute bleeding. 1 unit of PRBCs given and hemoglobin is currently 10. Labs stable. Receiving IVFs, appropriate UOP. No concerns for hospitalist team today. Exam Narrative: Exam Narrative: GEN: Alert and oriented, sitting comfortably in bedside chair and answering questions appropriately HEENT: EOMIs bilaterally, no scleral icterus CV: RRR, No concerning murmurs R: LCTA bilaterally without concerning wheezing, air movement adequate Ext: wwp, no concerning edema Skin: No concerning skin lesions or rashes on exposed skin Neuro: No focal deficits, no resting tremor Psych: Appropriate Const: Vital Signs, click to edit/add: Vital Signs - 24 hr 02/21/24 12:59 02/21/24 14:06 02/21/24 15:00 Temperature 97.6 F 97.6 F Pulse Rate 54 L 52 L Pulse Rate [Right Pulse Oximeter] 54 L Respiratory Rate 14 14 14 Blood Pressure 151/52 H 164/57 H Blood Pressure [Ri ght Arm] Pulse Oximetry 93 94 Oxygen Delivery Me thod 02/21/24 15:00 02/21/24 15:00 02/21/24 15:00 Temperature 97.7 F Pulse Rate 57 L Pulse Rate [Right Pulse Oximeter] 54 L Respiratory Rate 14 14 Blood Pressure Blood Pressure [Ri ght Arm] 149/65 H Pulse Oximetry 96 96 Oxygen Delivery Me thod Room Air Room Air 02/21/24 15:24 02/21/24 19:00 02/21/24 23:00 Temperature 97 F L 97.7 F Pulse Rate 54 L 52 L Pulse Rate [Right Pulse Oximeter] 59 L Respiratory Rate 14 18 Blood Pressure 149/65 H Blood Pressure [Ri ght Arm] 174/70 H Pulse Oximetry 96 95 Oxygen Delivery Me thod Room Air 02/22/24 00:05 02/22/24 00:05 02/22/24 00:06 Temperature 97.6 F Pulse Rate Pulse Rate [Right Pulse Oximeter] 58 L 58 L Respiratory Rate 18 18 Blood Pressure Blood Pressure [Ri ght Arm] 174/69 H Pulse Oximetry 95 95 Oxygen Delivery Me thod Room Air Room Air 02/22/24 04:23 02/22/24 06:42 02/22/24 07:00 Temperature 98.3 F Pulse Rate Pulse Rate [Right Pulse Oximeter] 61 60 Respiratory Rate 18 18 Blood Pressure Blood Pressure [Ri ght Arm] 171/71 H 170/69 H Pulse Oximetry 93 95 Oxygen Delivery Nj thod Room Air Room Air 02/22/24 07:00 02/22/24 07:39 02/22/24 11:00 Temperature 97.9 F 97.6 F Pulse Rate 71 Pulse Rate [Right Pulse Oximeter] 55 L 56 L Respiratory Rate 14 14 Blood Pressure Blood Pressure [Ri ght Arm] 167/62 H 169/66 H Pulse Oximetry 95 97 Oxygen Delivery Nj thod Room Air Room Air Labs Labs: Laboratory Results - last 24 hr 02/21/24 02/22/24 05:56 06:07 WBC 17.05 H RBC 3.49 L Hgb 10.0 L Hct 30.6 L MCV 88 MCH 29 MCHC 33 RDW Coeff of Will 13.6 Plt Count 165 Neut % (Auto) 92.3 H Lymph % (Auto) 1.3 L [place] % (Auto) 5.5 Eos % (Auto) 0.2 Baso % (Auto) 0.1 Neut # (Auto) 15.70 H Lymph # (Auto) 0.20 L [place] # (Auto) 0.90 Eos # (Auto) 0.00 Baso # (Auto) 0.00 Abs Immat Gran (auto) 0.10 Imm/Tot Granulo (auto) 0.6 Sodium 134 L Potassium 3.6 Chloride 104 Carbon Dioxide 26 Anion Gap 4 L BUN 40 H Creatinine 1.5 Estimated Creat Clear 24.11 Estimated GFR 34 Glucose 105 Uric Acid 9.6 H Calcium 12.1 H* Ionized Calcium Zonia 1.65 H Magnesium 1.6 Total Bilirubin 0.7 AST 22 ALT 10 Alkaline Phosphatase 67 Total Protein 5.3 L Albumin 3.1 L Blood Type A Positive Antibody Screen NEGATIVE Crossmatch ([facility]) See Detail
[2024-02-22] MEDS: OMEPRAZOLE 20 MG CAPSULE DR PO (14:19)
[2024-02-22] MEDS: 0.9 % SODIUM CHLORIDE 1000 ml 1,000 ML 75 ML IV (19:53)
[2024-02-22] MEDS: ENOXAPARIN 30 MG/0.3ML INJ SUBCUT (20:38)
--- NOTE | 2024-02-22 22:45 | PC.NURSE ---
Discharge note: Nurse took over from ongoing nurse with the instruction that pt has been transferred to [facility] for oncology treatment. Nurse was to call the receiving facility to give [id number] report. However, the ongoing nurse did finished the nurse-to n
--- NOTE | 2024-02-22 22:50 | PC.NURSE ---
Discharge note: Nurse took over from ongoing nurse with the instruction that pt has been transferred to [facility] for oncology treatment. Nurse was to call the receiving facility to give [id number] report. However, the ongoing nurse did finished the [id number] report before leaving. Nurse only have to help the EMS team with the transfer and answered questions as needed. The EMS staff got to the unit at 2150 and pt was transferred at 2155. Pt was alert, oriented and conscious at the time of departure. Discharge v/s recorded as T 97.7, P 60, RR 16, O2 97, and Bp 147/63.
== END 2024-02-22 21:50 | disposition short-term general hospital (02) | DRG 682 ==
LOC: ED 16:57 → MEDSURG 17:11
PROVIDERS: Admitting Provider Internal Medicine; Emergency Provider Family Medicine; PCP Family Medicine; Visit Provider Family Medicine
DX: E88.3 Tumor lysis syndrome (principal); E43 Unspecified severe protein-calorie malnutrition; C82.80 Other types of follicular lymphoma, unspecified site; C82.10 Follicular lymphoma grade II, unspecified site; C78.6 Secondary malignant neoplasm of retroperitoneum and peritoneum; R18.0 Malignant ascites; D64.81 Anemia due to antineoplastic chemotherapy; N17.9 Acute kidney failure, unspecified; D63.0 Anemia in neoplastic disease; T45.1X5A Adverse effect of antineoplastic and immunosuppressive drugs, initial encounter; E83.52 Hypercalcemia; E11.9 Type 2 diabetes mellitus without complications; I10 Essential (primary) hypertension; Z79.84 Long term (current) use of oral hypoglycemic drugs; R00.1 Bradycardia, unspecified; Z68.29 Body mass index [BMI] 29.0-29.9, adult; G31.84 Mild cognitive impairment of uncertain or unknown etiology
CPT/HCPCS: 36415; 36430; 76775; 80048; 80053; 82330; 82803; 83605; 83690; 83735; 84100; 84550; 85025; 85027; 86140; 86850; 86900; 86901; 86922; 93005; 97110; 97116; 97162; 97166; 97535; 99284; 99285; G0378; A9270; J1650; J1940; J3475; J3489; J7030; P9016

== ENCOUNTER 2024-02-22 20:46 | Outpatient (CLI) | payer MEDICARE, OTHER, SELFPAY ==
--- OUTSIDE RECORDS SUMMARY | 2024-03-08 15:42 | XMS_ITS | Referral Summary ---
Author Organization [facility] Address [address] [place] [address] Care Team Providers Care Automation Controls Specialist Name Role Phone Zena Yuan MD Primary Care Provider Encounters Date Type Department Care Team Description 02/22/2024 10:14 PM CDT - 02/29/2024 12:13 PM CDT Hospital Encounter [place] [address] [address] [place] [phone] Mathew Chen MD [place], Gallito Goodman MD [facility], Margarita Nath MD Constipation, unspecified constipation type (Primary Dx); Tumor lysis syndrome Discharge Disposition: [place] [facility] [place]22/[place] 1:08 PM CDT Anesthesia Event [facility] PeriOP Services [address] [place] [phone] Rupesh Denton MD [place], Kristina Nguyen, DANA MANZO 01/22/2024 1:10 PM CDT - 01/22/2024 2:40 PM [facility]T [facility] [address] [place] [phone] Helen Escalera MD DIAGNOSTIC LAPAROSCOPY, OMENTAL BIOPSIES, AND EVACUATION OF ASCITES 01/22/2024 11:36 AM CDT - 01/22/2024 4:29 PM CDT Hospital Encounter [facility] PreOP/Phase II [address] [place] [address] Helen Escalera MD Carcinomatosis (H) (Primary Dx) Discharge Disposition: Home or Self Care 01/15/2024 Travel 01/15/2024 10:07 AM CDT - 01/15/2024 11:59 PM CDT Hospital Encounter [facility] Imaging [address] [place] [phone] Helen Escalera MD Peritoneal carcinomatosis (H) Discharge Disposition: Home or Self Care 01/11/2024 Telephone [facility] Imaging [address] [place] [phone] Keila Liu RN from Last 3 Months Allergies Active [...] Take 20 mg by mouth daily Active polyethylene glycol (MIRALAX) 17 GM/Dose powderIndications:Con stipation, unspecified constipation type Take 17 g by mouth daily 510 g 02/29/2024 Active senna-docusate (SENOKOT-S/PERICOLACE ) 8.6-50 MG tabletIndications:Con stipation, unspecified constipation type Take 3 tablets by mouth 2 times daily 180 tablet 02/29/2024 Active allopurinol (ZYLOPRIM) 100 MG tabletIndications:Mar or lysis syndrome Take 1 tablet (100 mg) by mouth 3 times daily 90 tablet 02/29/2024 Active Active Problems Problem Noted Date Diagnosed Date 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 Author MYC ECC SURG ENROLL Care Plan MyC ECC SURG ENROLL No Camille Torres Procedures Procedure Name Priority Date/Time Associated Diagnosis Comments MAGNESIUM Routine 02/29/2024 8:23 AM CDT IONIZED CALCIUM Routine 02/29/2024 8:23 AM CDT URIC ACID Routine 02/29/2024 8:23 AM CDT CBC WITH PLATELETS Routine 02/29/2024 8: 23 AM CDT BASIC METABOLIC PANEL Routine 02/29/2024 8:23 AM CDT IONIZED CALCIUM Routine 02/28/2024 8:03 AM CDT URIC ACID Routine 02/28/2024 8:03 AM CDT MAGNESIUM Routine 02/28/2024 8:03 AM CDT CBC WITH PLATELETS Routine 02/28/2024 8: 03 AM CDT BASIC METABOLIC PANEL Routine 02/28/2024 8:03 AM CDT MAGNESIUM Add-On 02/27/2024 9:31 AM CDT PHOSPHORUS Routine 02/27/2024 9:31 AM CDT CBC WITH PLATELETS Routine 02/27/2024 9: 31 AM CDT BASIC METABOLIC PANEL Routine 02/27/2024 9:31 AM CDT XR ABDOMEN 1 VIEW Routine 02/26/2024 1:4 8 PM CDT URIC ACID, RASBURICASE Routine 02/26/2024 11:01 AM CDT MAGNESIUM Routine 02/26/2024 4:52 AM CDT LACTATE DEHYDROGENASE Routine 02/26/2024 4:52 AM CDT PHOSPHORUS Routine 02/26/2024 4:52 AM CDT CBC WITH PLATELETS Routine 02/26/2024 4: 52 AM CDT BASIC METABOLIC PANEL Routine 02/26/2024 4:52 AM CDT POTASSIUM Timed 02/26/2024 4:52 AM CDT POTASSIUM Timed 02/25/2024 9:04 PM CDT MAGNESIUM Timed 02/25/2024 9:04 PM CDT PHOSPHORUS STAT Add-on 02/25/2024 12:03 PM CDT IONIZED CALCIUM Routine 02/25/2024 12:03 PM CDT LACTATE DEHYDROGENASE Routine 02/25/2024 12:03 PM CDT CBC WITH PLATELETS Routine 02/25/2024 12:03 PM CDT BASIC METABOLIC PANEL Routine 02/25/2024 12:03 PM CDT MAGNESIUM Routine 02/25/2024 12:03 PM CDT URIC ACID, RASBURICASE Routine 02/25/2024 12:03 PM CDT XR CHEST 2 VIEWS Routine 02/25/2024 3:17 AM CDT URIC ACID, RASBURICASE Routine 02/24/2024 8:14 AM CDT MAGNESIUM Routine 02/24/2024 7:45 AM CDT CBC WITH PLATELETS Routine 02/24/2024 7: 45 AM CDT BASIC METABOLIC PANEL Routine 02/24/2024 7:45 AM CDT MAGNESIUM Timed 02/23/2024 11:27 PM CDT POTASSIUM Routine 02/23/2024 11:31 AM CDT MAGNESIUM Routine 02/23/2024 11:31 AM CDT LACTATE DEHYDROGENASE Timed 02/23/2024 4:36 AM CDT CBC WITH PLATELETS Routine 02/23/2024 4: 36 AM CDT COMPREHENSIVE METABOLIC PANEL Routine 02/23/2024 4:36 AM CDT IONIZED CALCIUM Timed 02/23/2024 4:36 AM CDT PHOSPHORUS Timed 02/23/2024 4:36 AM CDT BASIC METABOLIC PANEL Timed 02/23/2024 4:36 AM CDT URIC ACID, RASBURICASE Timed 02/23/2024 4:36 AM CDT LAB RESULT - HIM SCAN 02/22/2024 12:00 AM CDT EKG CARDIAC - HIM SCAN 02/21/2024 12:00 AM CDT US IMAGING - HIM SCAN 02/21/2024 12:00 AM CDT SURGICAL PATHOLOGY EXAM Routine 01/22/2024 2:18 PM [...] (H) from Last 3 Months Results * Uric acid (02/29/2024 8:23 AM CDT) Only the most recent of2 resultswithin the time period is included. Uric Acid 3.5 2.4 - 5.7 mg/dL 02/29/2024 9:16 AM CDT LABORATORY Blood STRUCTURE OF RIGHT UPPER LIMB / Unknown Venipuncture / Unknown 02/29/2024 8:23 AM CDT 02/29/2024 8:32 AM CDT Margarita Ruiz MD LAB - BLOOD ORDER JENNIFER [facility] Lab [address] 1[address], [address] [place] [address], [facility] [phone] * Magnesium (02/29/2024 8:23 AM CDT) Only the most recent of9 resultswithin the time period is included. Magnesium 1.8 1.7 - 2.3 mg/dL 02/29/2024 9:16 AM CDT LABORATORY Blood STRUCTURE OF RIGHT UPPER LIMB / Unknown Venipuncture / Unknown 02/29/2024 8:23 AM CDT 02/29/2024 8:32 AM CDT Margarita Ruiz MD LAB - BLOOD ORDER JENNIFER Performing Organization Address City/[facility]/ZIP Co de Phone Number [facility] Lab [address], [address] [place] [address], [facility] [phone] * (ABNORMAL) Ionized Calcium (02/29/2024 8:23 AM CDT) Only the most recent of4 resultswithin the time period is included. Calcium Ionized Whole Blood 6.8(H) 4.4 - 5.2 mg/dL 02/29/2024 8:36 AM CDT LABORATORY Blood STRUCTURE OF RIGHT UPPER LIMB / Unknown Venipuncture / Unknown 02/29/2024 8:23 AM CDT 02/29/2024 8:32 AM CDT Margarita Ruiz MD LAB - BLOOD ORDER JENNIFER LABORATORY [facility] [address], [address] [place] [address], [facility] [phone] * (ABNORMAL) Basic metabolic panel (02/29/2024 8:23 AM CDT) Only the most recent of7 resultswithin the time period is included. [facility] Sodium 137 135 - 145 mmol/L 02/29/2024 9:17 AM [facility] Comment:Reference intervals for this test were updated on 06/13/2023 to more accurately reflect our healthy population. There may be differences in the flagging of prior results with similar values performed with this method. Interpretation of those prior results can be made in the context of the updated reference intervals. Potassium 3.4 3.4 - 5.3 mmol/L 02/29/2024 9:17 AM [facility] Chloride 99 98 - 107 mmol/L 02/29/2024 9:17 AM [facility] Carbon Dioxide (CO2) 27 22 - 29 mmol/L 02/29/2024 9:17 AM [facility] Anion Gap 11 7 - 15 mmol/L 02/29/2024 9:17 AM [facility] Urea Nitrogen 27.6(H) 8.0 - 23.0 mg/dL 02/29/2024 9:17 AM [facility] Creatinine 1.89(H) 0.51 - 0.95 mg/dL 02/29/2024 9:17 AM [facility] GFR Estimate 26(L) >60 mL/min/1. 73m2 02/29/2024 9:17 AM [facility] Calcium 12.8(H) 8.8 - 10.2 mg/dL 02/29/2024 9:17 AM [facility] Glucose 117(H) 70 - 99 mg/dL 02/29/2024 9:17 AM [facility] Blood STRUCTURE OF RIGHT UPPER LIMB / Unknown Venipuncture / Unknown 02/29/2024 8:23 AM CDT 02/29/2024 8:32 AM CDT Margarita Ruiz MD LAB - BLOOD ORDER JENNIFER LABORATORY [facility] [address], [address] [place] [address], [facility] [phone] * (ABNORMAL) CBC with platelets (02/29/2024 8:23 AM CDT) Only the most recent of7 resultswithin the time period is included. [facility] WBC Count 15.1(H) 4.0 - 11.0 10e3/uL 02/29/2024 8:52 AM CDT LABORATORY RBC Count 3.15(L) 3.80 - 5.20 10e6/uL 02/29/2024 8:52 AM CDT LABORATORY Hemoglobin 9.2(L) 11.7 - 15.7 g/dL 02/29/2024 8:52 AM CDT LABORATORY Hematocrit 28.3(L) 35.0 - 47.0 % 02/29/2024 8:52 AM CDT LABORATORY MCV 90 78 - 100 fL 02/29/2024 8:52 AM CDT LABORATORY MCH 29.2 26.5 - 33.0 pg 02/29/2024 8:52 AM CDT LABORATORY MCHC 32.5 31.5 - 36.5 g/dL 02/29/2024 8:52 AM CDT LABORATORY RDW 14.0 10.0 - 15.0 % 02/29/2024 8:52 AM CDT LABORATORY Platelet Count 135(L) 150 - 450 10e3/uL 02/29/2024 8:52 AM CDT LABORATORY Blood STRUCTURE OF RIGHT UPPER LIMB / Unknown Venipuncture / Unknown 02/29/2024 8:23 AM CDT 02/29/2024 8:32 AM CDT Magrarita Ruiz MD LAB - BLOOD ORDER JENNIFER LABORATORY [facility] Lab [address], [address] [place] [address], [facility] [phone] * Phosphorus (02/27/2024 9:31 AM CDT) Only the most recent of4 resultswithin the time period is included. Phosphorus 3.6 2.5 - 4.5 mg/dL 02/27/2024 7:52 PM CDT LABORATORY Blood STRUCTURE OF RIGHT UPPER LIMB / Unknown Venipuncture / Unknown 02/27/2024 9:31 AM CDT 02/27/2024 9:39 AM CDT Margarita Ruiz MD LAB - BLOOD ORDER JENNIFER LABORATORY [facility] Lab [address], [address] [place] [address], [facility] [phone] * XR Abdomen 1 View (02/26/2024 1:48 PM CDT) Anatomical Region Laterality Modality Abdomen/Pelvis Digital Radiogra phy Impressions 02/26/2024 4:38 PM CDT IMPRESSION: There are a few air-fluid levels in nondilated colon. Moderate to large amount of stool throughout the colon likely indicates a degree of constipation. No obstruction or free intraperitoneal air. MAYRA MCFARLANE MD Narrative 02/26/2024 4:38 PM CDT ABDOMEN ONE VIEW 02/26/2024 1:48 PM HISTORY: Assess for obstipation. COMPARISON: 01/03/2024 Procedure Note Mayra Mcfarlane MD - 02/26/2024 ABDOMEN ONE VIEW 02/26/2024 1:48 PM HISTORY: Assess for obstipation. COMPARISON: 01/03/2024 IMPRESSION: There are a few air-fluid levels in nondilated colon. Moderate to large amount of stool throughout the colon likely indicates a degree of constipation. No obstruction or free intraperitoneal air. MAYRA MCFARLANE MD Margarita Ruiz MD IMG DIAGNOSTIC IM AGING ORDERABLES * (ABNORMAL) Uric acid, Rasburicase (02/26/2024 11:01 AM CDT) Only the most recent of4 resultswithin the time period is included. Uric Acid, Rasburicase 1.8(L) 2.4 - 5.7 mg/dL 02/26/2024 11:35 AM CDT LABORATORY Comment:Uric Acid specimen d rawn and processed following the post-Rasburicase monitoring protocol. Blood STRUCTURE OF RIGHT UPPER LIMB / Unknown Venipuncture / Unknown 02/26/2024 11:01 AM CDT 02/26/2024 11:10 AM CDT Gallito Whitehead MD LAB - BLOOD ORDERABL ES LABORATORY [facility] Lab [address], [address] [place] [address], [place] [phone] * Lactate Dehydrogenase (02/26/2024 4:52 AM CDT) Only the most recent of3 resultswithin the time period is included. Lactate Dehydrogenase 207 0 - 250 U/L 02/26/2024 5:17 AM CDT LABORATORY Blood STRUCTURE OF RIGHT HAND / Unknown Venipuncture / Unknown 02/26/2024 4:52 AM CDT 02/26/2024 4:57 AM CDT Margarita Ruiz MD LAB - BLOOD ORDER JENNIFER LABORATORY [facility] Lab [address], [address] [place] [address], [place] [phone] * Potassium (02/26/2024 4:52 AM CDT) Only the most recent of3 resultswithin the time period is included. Potassium 4.1 3.4 - 5.3 mmol/L 02/26/2024 5:17 AM CDT LABORATORY Blood STRUCTURE OF RIGHT HAND / Unknown Venipuncture / Unknown 02/26/2024 4:52 AM CDT 02/26/2024 4:57 AM CDT Margarita Pham Ruiz MD LAB - BLOOD ORDER JENNIFER LABORATORY [facility] [address], [address] [place] [address], [facility] [phone] * XR Chest 2 Views (02/25/2024 3:17 AM CDT) Anatomical Region Laterality Modality Chest Digital Radiogra phy 02/25/2024 3:17 AM CDT Impressions 02/25/2024 3:22 AM CDT IMPRESSION: Small bilateral pleural effusions have developed with associated passive atelectasis in the adjacent lungs. Normal cardiac size and pulmonary vascularity. No suspicious adenopathy. Atherosclerotic thoracic aorta. Postoperative changes cervical spine with anterior plate and screw fixation. Long segment thoracolumbar spinal hardware, partially visualized, unchanged. Narrative 02/25/2024 3:22 AM CDT EXAM: XR CHEST 2 VIEWS LOCATION: [facility] DATE: 02/25/2024 INDICATION: Shortness of breath. Hypercalcemia with fluid, but also got Rasburicase recently. COMPARISON: CT chest, abdomen and pelvis with IV contrast 01/03/2024. Procedure Note Antoinette Bobby MD - 02/25/2024 EXAM: XR CHEST 2 VIEWS LOCATION: [facility] DATE: 02/25/2024 INDICATION: Shortness of breath. Hypercalcemia with fluid, but also gotRasburicase recently. COMPARISON: CT chest, abdomen and pelvis with IV contrast 01/03/2024. IMPRESSION: Small bilateral pleural effusions have developed withassociated passive atelectasis in the adjacent lungs. Normal cardiac sizeand pulmonary vascularity. No suspicious adenopathy. Atheroscleroticthoracic aorta. Postoperative changes cervical spine with anterior plate and screw fixation. Long segmentthoracolumbar spinal hardware, partially visualized, unchanged. Gallito Whitehead MD IMG DIAGNOSTIC IMAGI NG ORDERABLES * (ABNORMAL) Comprehensive metabolic panel (02/23/2024 4:36 AM CDT) Sodium 137 135 - 145 mmol/L 02/23/2024 5:17 AM CDT LABORATORY Comment:Reference intervals for this test were updated on 06/13/2023 to more accurately reflect our healthy population. There may be differences in the flagging of prior results with similar values performed with this method. Interpretation of those prior results can be made in the context of the updated reference intervals. Potassium 3.8 3.4 - 5.3 mmol/L 02/23/2024 5:17 AM CDT LABORATORY Carbon Dioxide (CO2) 25 22 - 29 mmol/L 02/23/2024 5:17 AM CDT LABORATORY Anion Gap 11 7 - 15 mmol/L 02/23/2024 5:17 AM [facility] Urea Nitrogen 31.3(H) 8.0 - 23.0 mg/dL 02/23/2024 5:17 AM CDT LABORATORY Creatinine 1.65(H) 0.51 - 0.95 mg/dL 02/23/2024 5:17 AM CDT LABORATORY GFR Estimate 30(L) >60 mL/min/1. 73m2 02/23/2024 5:17 AM CDT LABORATORY Calcium 12.7(H) 8.8 - 10.2 mg/dL 02/23/2024 5:17 AM T LABORATORY Chloride 101 98 - 107 mmol/L 02/23/2024 5:17 AM [facility] Glucose 124(H) 70 - 99 mg/dL 02/23/2024 5:17 AM [facility] Alkaline Phosphatase 83 40 - 150 U/L 02/23/2024 5:17 AM CDT LABORATORY AST 14 0 - 45 U/L 02/23/2024 5:17 AM [facility] Comment:Reference intervals for this test were updated on 02/27/2023 to more accurately reflect our healthy population. There may be differences in the flagging of prior results with similar values performed with this method. Interpretation of those prior results can be made in the context of the updated reference intervals. ALT 6 0 - 50 U/L 02/23/2024 5:17 AM CDT LABORATORY Comment:Reference intervals for this test were updated on 02/27/2023 to more accurately reflect our healthy population. There may be differences in the flagging of prior results with similar values performed with this method. Interpretation of those prior results can be made in the context of the updated reference intervals. Protein Total 4.9(L) 6.4 - 8.3 g/dL 02/23/2024 5:17 AM CDT LABORATORY Albumin 3.0(L) 3.5 - 5.2 g/dL 02/23/2024 5:17 AM CDT LABORATORY Bilirubin Total 0.2 <=1.2 mg/dL 02/23/2024 5:17 AM CDT LABORATORY Blood STRUCTURE OF RIGHT UPPER LIMB / Unknown Venipuncture / Unknown 02/23/2024 4:36 AM CDT 02/23/2024 4:53 AM CDT Gallito Whitehead MD LAB - BLOOD ORDERABL ES LABORATORY [facility] [address], [address] [place] [address], [facility] [phone] * Lab Result - HIM Scan (02/22/2024 12:00 AM CDT) 02/22/2024 Provider Outside NON-BEAKER LAB TE STING * US Imaging - HIM Scan (02/21/2024 12:00 AM CDT) Anatomical Region Laterality Modality Other 02/21/2024 Provider Outside IMG US ORDERABLES * EKG Cardiac - HIM Scan (02/21/2024 12:00 AM CDT) 02/21/2024 Provider Outside ECG ORDERABLES * (ABNORMAL) Surgical Pathology Exam (01/22/2024 2:18 PM CDT) Case Report Surgical Pathology Report ? Case: [id number] ? Authorizing Provider: ??Helen Escalera MD ? Collected: ? 01/22/2024 02:18 PM ? Ordering Location: ? [facility] ?Received: ?01/22/2024 02:54 PM ? [facility] ? Pathologist: ? Candelaria Powers, ? MD ? Specimen: ?Omentum, Omentum Biopsy ? 02/07/2024 12:47 PM [facility] Addendum An addendum is [...] a grade 1-2 process. 02/07/2024 12:47 PM [facility] Addendum electronically signed by Candelaria Powers MD on 02/07/2024 at 12:47 PM Final Diagnosis Omentum, biopsy -Follicular lymphoma, classical pattern 02/07/2024 12:47 PM [facility] Comment The unexpected finding of a lymphoid malignancy has been relayed to Dr. Escalera via her nurse Sherly on case sign out. 02/07/2024 12:47 PM [facility] Clinical Information Procedure: DIAGNOSTIC LAPAROSCOPY, OMENTAL BIOPSIES, AND EVACUATION OF ASCITES Pre-op Diagnosis: Intra-abdominal and pelvic swelling, mass and lump, unspecified site [R19.00] Post-op Diagnosis: R19.00 - Intra-abdominal and pelvic swelling, mass and lump, unspecified site [ICD-10-CM] 02/07/2024 12:47 PM [facility] Gross Description A(2). Omentum, Omentum Biopsy: The specimen is received in formalin labeled with the patient's name, medical record number and other identifying information and designated omentum biopsy. It consists of a 5.9 cm aggregate of [id number], ragged adipose tissue. Sectioning reveals huff-yellow, lobulated [...] component of this testing was completed at [facility] 02/07/2024 12:47 PM CDT LABORATORY Case Images 02/07/2024 12:47 PM CDT LABORATORY Biopsy OMENTUM STRUCTURE / Unknown 01/22/2024 2:18 PM CDT 01/22/2024 2:54 PM CDT Helen Escalera MD [facility] LABORATORY [facility] [address] 1[address] floor, [address] [place] [address], [facility] [phone] * (ABNORMAL) Cytology, non-gynecologic (01/22/2024 2:09 PM CDT) Final Diagnosis Specimen A: Peritoneal fluid, paracentesis: Interpretation: Atypical. See comment. Other Findings: Abundant population of lymphoid elements. Adequacy: Satisfactory for evaluation. 01/25/2024 2:10 PM CDT LABORATORY Comment The findings should be correlated with the surgical pathology specimen [id number]. 01/25/2024 2:10 PM CDT LABORATORY Clinical Information [...] component of this testing was completed at [facility] 01/25/2024 2:10 PM CDT SPECIALTY LABS [place] ABDOMEN / Unknown 01/22/2024 2:09 PM CDT 01/22/2024 2:53 PM CDT Helen Escalera MD LAB - ALEXANDRA SMITH LABORATORY [facility] [address] Lab (1st floor, no room number) [place] [address], [facility] SPECIALTY LABS Specialty Lab [address] [facility], [address] [place] [address], [facility] * ANE AIRWAY ETT PERFORMABLE (01/22/2024 1:18 PM CDT) Narrative Kenzie Jacinto APRN COMPUTER SYSTEMS SUPPORT SPECIALIST - 01/22/2024 1:18 PM CDT Kenzie Jacinto APRN COMPUTER SYSTEMS SUPPORT SPECIALIST ? 01/22/2024 ??1:31 PM Airway ? Patient location during procedure: OR ? Procedure Start/Stop Times: 01/22/2024 1:18 PM Staff - ? Anesthesiologist: ??Shar eSe MD ? COMPUTER SYSTEMS SUPPORT SPECIALIST: Kenzie Jacinto APRN COMPUTER SYSTEMS SUPPORT SPECIALIST ? Performed By: CRNAIndications and Patient Condition [...] Time: 01/22/2024 1:18 PM Rupesh Denton MD CT ANESTHESIA * Antibody identification (01/22/2024 12:15 PM CDT) Pathologist [facility] Antibody Identification Anti-Wallace b (Fyb) 01/22/2024 1:34 PM CDT BLOOD BANK SPECIMEN EXPIRATION DATE 01/22/2024 1:34 PM CDT BLOOD BANK Blood STRUCTURE OF RIGHT HAND / Unknown Venipuncture / Unknown 01/22/2024 12:15 PM CDT 01/22/2024 12:21 PM CDT Helen Escalera MD LAB - BLOOD BANK [facility] Organization Address City/State/[facility] Co de Phone Number BLOOD BANK [address] [place] [phone] * (ABNORMAL) Adult Type and Screen (01/22/2024 12:15 PM CDT) ABO/RH(D) A POS 01/22/2024 11:54 AM CDT BLOOD BANK Antibody Screen Positive(A) Negative 01/22/2024 11:54 AM CDT BLOOD BANK SPECIMEN EXPIRATION DATE [id number] 01/22/2024 11:54 AM CDT BLOOD BANK Blood STRUCTURE OF RIGHT HAND / Unknown Venipuncture / Unknown 01/22/2024 12:15 PM CDT 01/22/2024 12:21 PM CDT Helen Escalera MD LAB - BLOOD BANK TE ORDER BLOOD BANK [address] [place] [address], [facility] * Red Cell Antigen Typing Non ABO: (01/22/2024 12:15 PM CDT) Fyb Antigen Type Negative 01/22/2024 4:21 PM CDT BLOOD BANK SPECIMEN EXPIRATION DATE [id number] 01/22/2024 4:21 PM CDT BLOOD BANK Blood STRUCTURE OF RIGHT HAND / Unknown Venipuncture / Unknown 01/22/2024 12:15 PM CDT 01/22/2024 12:21 PM CDT Helen Escalera MD LAB - BLOOD BANK [facility] Performing Organization Address City/[facility]/ZIP Co de Phone Number BLOOD BANK [address] [place] [address], [facility] * (ABNORMAL) Hemoglobin (01/22/2024 12:15 PM CDT) Hemoglobin 10.3(L) 11.7 - 15.7 g/dL 01/22/2024 12:25 PM CDT LABORATORY Blood STRUCTURE OF RIGHT HAND / Unknown Venipuncture / Unknown 01/22/2024 12:15 PM CDT 01/22/2024 12:21 PM CDT Helen Escalera MD LAB - BLOOD ORDERAB LES LABORATORY [facility] [address], [address] [place] [address], [facility] [phone] * CT Paracentesis Initial (01/15/2024 11:50 AM CDT) Anatomical Region Laterality Modality Abdomen/Pelvis Computed Tomogra phy Impressions 01/15/2024 3:18 PM CDT IMPRESSION: 1. No omental mass suitable for CT-guided biopsy. 2. CT guided right lower quadrant paracentesis . DEMETRIUS HUMMEL MD Narrative 01/15/2024 3:18 PM CDT [facility] LOCATION: [facility] CLINICAL HISTORY: Peritoneal carcinomatosis ??. Patient presents [...] Procedure Note Demetrius Hummel MD - 01/15/2024 [facility] LOCATION: [facility] CLINICAL HISTORY: Peritoneal carcinomatosis . Patient presents [...] Diagnosed Date MyC ECC SURG ENROLL 01/17/2024 Advance Directives For more information, please contact: [phone] * No CPR- Do NOT Intubate (Latest Code Status on File) Date Activated Date Inactivated Comments 02/22/2024 11:35 PM 02/29/2024 2:15 PM NO basic or advanced life-sustaining interventions are performed Question Answer Comments Code status determined by: Discussion with patie nt/ legal decision maker Care Teams Automation Controls Specialist Relationship Specialty Start Date End Date Zena Yuan MD Nihar[place] [address] PCP - General Family Medicine 01/11/24
--- OUTSIDE RECORDS SUMMARY | 2024-03-08 15:42 | XMS_ITS | Clinical Summary ---
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 Omental mass 01/22/2024 Encounters Date Type Department Care Team Description 02/22/2024 10:14 PM CDT - 02/29/2024 12:13 PM CDT Hospital Encounter [facility] [address]cology [address] [place] [phone] Mathew Chen MD [place], MD Joseph Roberts, Margarita Nath MD Constipation, unspecified constipation type (Primary Dx); Tumor lysis syndrome Discharge Disposition: Home-Health Care [facility] 01/22/2024 1:10 PM CDT - 01/22/2024 2:40 PM CDT Surgery [facility] PeriOP Services [address] [place] [phone] Helen Escalera MD DIAGNOSTIC LAPAROSCOPY, OMENTAL BIOPSIES, AND EVACUATION OF ASCITES 01/22/2024 1:08 PM CDT Anesthesia Event [facility] [address] [place] [phone] Denton, MD Jerry Torres, Jazzy Maharaj, RURAL SERVICE ENGINEER CLASS B TRUCK DRIVER 01/22/2024 11:36 AM CDT - 01/22/2024 4:29 PM CDT Hospital Encounter [facility] PreOP/Phase II [address] [place] [phone] Helen Escalera MD Carcinomatosis (H) (Primary Dx) Discharge Disposition: Home or Self Care 01/15/2024 10:07 AM CDT - 01/15/2024 11:59 PM CDT Hospital Encounter [facility] Imaging [address] [place] [phone] Helen Escalera MD Peritoneal carcinomatosis (H) Discharge Disposition: Home or Self Care 01/15/2024 Travel 01/11/2024 Telephone [facility] Imaging [address] [place] [phone] Keila Liu RN from Last 3 Months [...] 02/25/2024 2:15 PM CDT Plan of Treatment Health Maintenance Due Date Last Done Comments ADVANCE CARE PLANNING 1940 ANNUAL REVIEW OF HM ORDERS 1940 DEXA 1940 LIPID 1940 RSV VACCINE ( & 60+) (1 - 1-dose 60+ series) 1999 FALL RISK ASSESSMENT 2004 DTAP/TDAP/TD IMMUNIZATION (2 - Td or Tdap) 06/10/2023 06/10/2013, 01/06/2006 PHQ-2 (once per calendar year) 2023 COVID-19 Vaccine ( season) 2023 08/08/2023, 06/25/2022, 02/04/2022, Additional [...] Margarita Ruiz MD LAB - BLOOD ORDER [facility] [address] 1[address] floor, [address] [place] [address], [facility] [phone] * Magnesium (02/29/2024 8:23 AM CDT) Only the most recent of9 resultswithin the time period is included. Magnesium 1.8 1.7 - 2.3 mg/dL 02/29/2024 9:16 AM CDT LABORATORY Blood STRUCTURE OF RIGHT UPPER LIMB / Unknown Venipuncture / Unknown 02/29/2024 8:23 AM CDT 02/29/2024 8:32 AM CDT Margarita Ruiz MD LAB - BLOOD ORDER [facility] [address] 1[address] floor, [address] [place] [address], [facility] [phone] * (ABNORMAL) Ionized Calcium (02/29/2024 8:23 AM CDT) Only the most recent of4 resultswithin the time period is included. Calcium Ionized Whole Blood 6.8(H) 4.4 - 5.2 mg/dL 02/29/2024 8:36 AM CDT LABORATORY Blood STRUCTURE OF RIGHT UPPER LIMB / Unknown Venipuncture / Unknown 02/29/2024 8:23 AM CDT 02/29/2024 8:32 AM CDT Margarita Ruiz MD LAB - BLOOD ORDER [facility] [address] 1[address] floor, [address] [place] [address], [facility] [phone] * (ABNORMAL) Basic metabolic panel (02/29/2024 8:23 AM CDT) Only the most recent of7 resultswithin the time period is included. Sodium 137 135 - 145 mmol/L 02/29/2024 9:17 AM CDT LABORATORY Comment:Reference intervals for this test were updated on 06/13/2023 to more accurately reflect our healthy population. There may be differences in the flagging of prior results with similar values performed with this method. Interpretation of those prior results can be made in the context of the updated reference intervals. Potassium 3.4 3.4 - 5.3 mmol/L 02/29/2024 9:17 AM CDT LABORATORY Chloride 99 98 - 107 mmol/L 02/29/2024 9:17 AM CDT LABORATORY Carbon Dioxide (CO2) 27 22 - 29 mmol/L 02/29/2024 9:17 AM CDT LABORATORY Anion Gap 11 7 - 15 mmol/L 02/29/2024 9:17 AM CDT LABORATORY Urea Nitrogen 27.6(H) 8.0 - 23.0 mg/dL 02/29/2024 9:17 AM CDT LABORATORY Creatinine 1.89(H) 0.51 - 0.95 mg/dL 02/29/2024 9:17 AM CDT LABORATORY GFR Estimate 26(L) >60 mL/min/1. 73m2 02/29/2024 9:17 AM CDT LABORATORY Calcium 12.8(H) 8.8 - 10.2 mg/dL 02/29/2024 9:17 AM T LABORATORY Glucose 117(H) 70 - 99 mg/dL 02/29/2024 9:17 AM T LABORATORY Blood STRUCTURE OF RIGHT UPPER LIMB / Unknown Venipuncture / Unknown 02/29/2024 8:23 AM CDT 02/29/2024 8:32 AM CDT aMrgarita Ruiz MD LAB - BLOOD ORDER [facility] [address] 1[address] floor, [address] [place] [address], [facility] [phone] * (ABNORMAL) CBC with platelets (02/29/2024 8:23 AM CDT) Only the most recent of7 resultswithin the time period is included. [facility] Signature WBC Count 15.1(H) 4.0 - 11.0 10e3/uL [...] MD LAB - BLOOD ORDER [facility] [address] 1[address] floor, [address] [place] [address], [facility] [phone] * Phosphorus (02/27/2024 9:31 AM CDT) Only the most recent of4 resultswithin the time period is included. Phosphorus 3.6 2.5 - 4.5 mg/dL 02/27/2024 7:52 PM CDT LABORATORY Blood STRUCTURE OF RIGHT UPPER LIMB / Unknown Venipuncture / Unknown 02/27/2024 9:31 AM CDT 02/27/2024 9:39 AM CDT Margarita Ruiz MD LAB - BLOOD ORDER [facility] [address] 1st floor, [address] [place] [address], [facility] [phone] * XR Abdomen 1 View (02/26/2024 1:48 [...] constipation. No obstruction or free intraperitoneal air. MARYA MCFARLANE MD [place] Pham Ruiz MD IMG DIAGNOSTIC IM AGING ORDERABLES [...] [place] MD LAB - BLOOD ORDERABL [facility] [address] 1[address] floor, [address] [place] [address], [place] [phone] * Lactate Dehydrogenase (02/26/2024 4:52 AM CDT) Only the most recent of3 resultswithin the time period is included. Lactate Dehydrogenase 207 0 - 250 U/L 02/26/2024 5:17 AM CDT LABORATORY Blood STRUCTURE OF RIGHT HAND / Unknown Venipuncture / Unknown 02/26/2024 4:52 AM CDT 02/26/2024 4:57 AM CDT Margarita Ruiz MD LAB - BLOOD ORDER JENN[facility] [address] 1[address] floor, [address] [place] [address], [place] [phone] * Potassium (02/26/2024 4:52 AM CDT) Only the most recent of3 resultswithin the time period is included. Potassium 4.1 3.4 - 5.3 mmol/L 02/26/2024 5:17 AM CDT LABORATORY Blood STRUCTURE OF RIGHT HAND / Unknown Venipuncture / Unknown 02/26/2024 4:52 AM CDT 02/26/2024 4:57 AM CDT Margarita Ruiz MD LAB - BLOOD ORDER JENNIFER [facility] [address] 1[address] floor, [address] [place] [address], [place] [phone] * XR Chest 2 Views (02/25/2024 3:17 [...] CDT EXAM: XR CHEST 2 VIEWS LOCATION: [facility] DATE: 02/25/2024 INDICATION: Shortness of breath. Hypercalcemia with fluid, but also got Rasburicase recently. COMPARISON: CT chest, abdomen and pelvis with IV contrast 01/03/2024. Procedure Note Antoinette Bobby MD - 02/25/2024 EXAM: XR CHEST 2 VIEWS LOCATION: [facility] DATE: 02/25/2024 INDICATION: Shortness [...] 3.4 - 5.3 mmol/L 02/23/2024 5:17 AM [facility] Carbon Dioxide (CO2) 25 22 - 29 mmol/L 02/23/2024 5:17 AM [facility] Anion Gap 11 7 - 15 mmol/L 02/23/2024 5:17 AM [facility] Urea Nitrogen 31.3(H) 8.0 - 23.0 mg/dL 02/23/2024 5:17 AM [facility] Creatinine 1.65(H) 0.51 - 0.95 mg/dL 02/23/2024 5:17 AM [facility] GFR Estimate 30(L) >60 mL/min/1. 73m2 02/23/2024 5:17 AM [facility] Calcium 12.7(H) 8.8 - 10.2 mg/dL 02/23/2024 5:17 AM [facility] Chloride 101 98 - 107 mmol/L 02/23/2024 5:17 AM [facility] Glucose 124(H) 70 - 99 mg/dL 02/23/2024 5:17 AM [facility] Alkaline Phosphatase 83 40 - 150 U/L 02/23/2024 5:17 AM [facility] AST 14 0 - 45 U/L 02/23/2024 5:17 AM [facility] Comment:Reference intervals for this test were updated on 02/27/2023 to more accurately reflect our healthy population. There may be differences in the flagging of prior results with similar values performed with this method. Interpretation of those prior results can be made in the context of the updated reference intervals. ALT 6 0 - 50 U/L 02/23/2024 5:17 AM [facility] Comment:Reference intervals for this test were updated on 02/27/2023 to more accurately reflect our healthy population. There may be differences in the flagging of prior results with similar values performed with this method. Interpretation of those prior results can be made in the context of the updated reference intervals. Protein Total 4.9(L) 6.4 - 8.3 g/dL 02/23/2024 5:17 AM [facility] Albumin 3.0(L) 3.5 - 5.2 g/dL 02/23/2024 5:17 AM [facility] Bilirubin Total 0.2 <=1.2 mg/dL 02/23/2024 5:17 AM CDT LABORATORY Blood STRUCTURE OF RIGHT UPPER LIMB / Unknown Venipuncture / Unknown 02/23/2024 4:36 AM CDT 02/23/2024 4:53 AM CDT Gallito [place] MD LAB - BLOOD ORDERABL ES LABORATORY [facility] [address] 1st floor, [address] [place] [address], [facility] [phone] * Lab Result - HIM Scan (02/22/2024 12:00 AM CDT) 02/22/2024 Provider Outside MH NON-BEAKER LAB TE STING * US Imaging - HIM Scan (02/21/2024 12:00 AM CDT) Anatomical Region Laterality Modality Other 02/21/2024 Provider Outside IMG US ORDERABLES * EKG Cardiac - HIM Scan (02/21/2024 12:00 AM CDT) 02/21/2024 Provider Outside ECG ORDERABLES * (ABNORMAL) Surgical Pathology Exam (01/22/2024 2:18 PM CDT) Case Report Surgical Pathology Report ? Case: [id number] ? Authorizing Provider: ??Helen Escalera MD ? Collected: ? 01/22/2024 02:18 PM ? Ordering Location: ? [facility] ?Received: ?01/22/2024 02:54 PM ? [facility] ? Pathologist: ? Gio, Candelaria [...] a grade 1-2 process. 02/07/2024 12:47 PM [facility] Addendum electronically signed by Candelaria Powers MD on 02/07/2024 at 12:47 PM Final Diagnosis Omentum, biopsy -Follicular lymphoma, classical pattern 02/07/2024 12:47 PM [facility] Comment The unexpected finding of a lymphoid malignancy has been relayed to Dr. Escalera via her nurse Sherly on case sign out. 02/07/2024 12:47 PM [facility] Clinical Information Procedure: DIAGNOSTIC LAPAROSCOPY, OMENTAL BIOPSIES, AND EVACUATION OF ASCITES Pre-op Diagnosis: Intra-abdominal and pelvic swelling, mass and lump, unspecified site [R19.00] Post-op Diagnosis: R19.00 - Intra-abdominal and pelvic swelling, mass and lump, unspecified site [ICD-10-CM] 02/07/2024 12:47 PM [facility] Gross Description A(2). Omentum, Omentum Biopsy: The specimen is received in formalin labeled with the patient's name, medical record number and other identifying information and designated omentum biopsy. It consists of a 5.9 cm aggregate of tev-rdoy-vpappj, ragged adipose tissue. Sectioning reveals huff-yellow, lobulated cut surfaces. No definitive tumor is identified. Submitted entirely in 3 cassettes. (Rylee Rooney)01/22/2024 2:59 PM 02/07/2024 12:47 PM [facility] Microscopic Description Evaluation fatty tissue [...] consultation obtained with agreement 02/07/2024 12:47 PM [facility] MCRS Yes(A) N/A 02/07/2024 12:47 PM CDT LABORATORY Performing Labs The technical component of this testing was completed at [facility] 02/07/2024 12:47 PM CDT LABORATORY Case Images 02/07/2024 12:47 PM CDT LABORATORY Biopsy OMENTUM STRUCTURE / Unknown 01/22/2024 2:18 PM CDT 01/22/2024 2:54 PM CDT Helen P[facility]TER - [facility] [address], [address] [place] [address], [facility] [phone] * (ABNORMAL) Cytology, non-gynecologic (01/22/2024 2:09 PM CDT) Final Diagnosis Specimen A: Peritoneal fluid, paracentesis: Interpretation: Atypical. See comment. Other Findings: Abundant population of lymphoid elements. Adequacy: Satisfactory for evaluation. 01/25/2024 2:10 PM CDT LABORATORY Comment The findings should be correlated with the surgical pathology specimen [id number]. 01/25/2024 2:10 PM CDT LABORATORY Clinical Information [...] component of this testing was completed at [facility] 01/25/2024 2:10 PM CDT [facility] [place] ABDOMEN / Unknown 01/22/2024 2:09 PM CDT 01/22/2024 2:53 PM CDT Helen MORRIS [facility] Acute [facility] Lab [address] [facility] Lab (1st floor, no room number) [place] [address], [facility] [address] [facility], [address] [place] [address], [facility] * ANE AIRWAY ETT PERFORMABLE (01/22/2024 1:18 PM CDT) Narrative Kenzie Jacinto APRN CLASS B TRUCK DRIVER - 01/22/2024 1:18 PM CDT Kenzie Jacinto APRN CLASS B TRUCK DRIVER ? 01/22/2024 ??1:31 PM Airway ? Patient location during procedure: OR ? Procedure Start/Stop Times: 01/22/2024 1:18 PM Staff - ? Anesthesiologist: ??Shar See MD ? CLASS B TRUCK DRIVER: Kenzie Jacinto APRN CLASS B TRUCK DRIVER ? Performed By: CRNAIndications and Patient Condition [...] Time: 01/22/2024 1:18 PM Rupesh [place] MD [place] [facility] * Antibody identification (01/22/2024 12:15 PM CDT) Antibody Identification Anti-Wallace b (Fyb) 01/22/2024 1:34 PM CDT BLOOD BANK SPECIMEN EXPIRATION DATE [id number] 01/22/2024 1:34 PM CDT BLOOD BANK Blood STRUCTURE OF RIGHT HAND / Unknown Venipuncture / Unknown 01/22/2024 12:15 PM CDT 01/22/2024 12:21 PM CDT Helen Escalera MD LAB - BLOOD BANK TE ORDER Performing Organization Address City/[facility]/ZIP Co de Phone Number BLOOD BANK [address] [phone], [facility] * (ABNORMAL) Adult Type and Screen (01/22/2024 12:15 PM CDT) ABO/RH(D) A POS 01/22/2024 11:54 AM CDT BLOOD BANK Antibody Screen Positive(A) Negative 01/22/2024 11:54 AM CDT BLOOD BANK SPECIMEN EXPIRATION DATE [id number] 01/22/2024 11:54 AM CDT BLOOD BANK Blood STRUCTURE OF RIGHT HAND / Unknown Venipuncture / Unknown 01/22/2024 12:15 PM CDT 01/22/2024 12:21 PM CDT Helen Escalera MD LAB - BLOOD BANK TE ORDER BLOOD BANK [address] [address], [facility] * Red Cell Antigen Typing Non ABO: (01/22/2024 12:15 PM CDT) Fyb Antigen Type Negative 01/22/2024 4:21 PM CDT BLOOD BANK SPECIMEN EXPIRATION DATE [id number] 01/22/2024 4:21 PM CDT BLOOD BANK Blood STRUCTURE OF RIGHT HAND / Unknown Venipuncture / Unknown 01/22/2024 12:15 PM CDT 01/22/2024 12:21 PM CDT Helen Escalera MD LAB - BLOOD BANK TE ST ORDER BLOOD BANK [address] [place] [address], [facility] * (ABNORMAL) Hemoglobin (01/22/2024 12:15 PM CDT) Hemoglobin 10.3(L) 11.7 - 15.7 g/dL 01/22/2024 12:25 PM CDT LABORATORY Blood STRUCTURE OF RIGHT HAND / Unknown Venipuncture / Unknown 01/22/2024 12:15 PM CDT 01/22/2024 12:21 PM CDT Helen Escalera MD LAB - BLOOD ORDERAB LES LABORATORY [facility] [address] 1st floor, [address] [place] [address], [facility] [phone] * CT Paracentesis Initial (01/15/2024 11:50 AM CDT) Anatomical Region Laterality Modality Abdomen/Pelvis Computed Tomogra phy Impressions 01/15/2024 3:18 PM CDT IMPRESSION: 1. No omental mass suitable for CT-guided biopsy. 2. CT guided right lower quadrant paracentesis . DEMETRIUS HUMMEL MD Narrative 01/15/2024 3:18 PM CDT [facility] LOCATION: [facility] CLINICAL HISTORY: Peritoneal carcinomatosis ??. Patient presents [...] Procedure Note Demetrius Hummel MD - 01/15/2024 [facility] LOCATION: [facility] CLINICAL HISTORY: Peritoneal carcinomatosis . Patient presents [...] Advance Directives For more information, please contact: [phone] * No CPR- Do NOT Intubate (Latest Code Status on File) Date Activated Date Inactivated Comments 02/22/2024 11:35 PM 02/29/2024 2:15 PM NO basic or advanced life-sustaining interventions are performed Question Answer Comments Code status determined by: Discussion with jocelyne singh/ legal decision maker Care Teams Industrial Ecology Technician Relationship Specialty Start Date End Date Zena Yuan MD [address] [place] [address] PCP - General Family Medicine 01/11/24
--- OUTSIDE RECORDS SUMMARY | 2024-03-08 15:43 | XMS_ITS | Encounter Summary ---
Author Organization [place] Address [address] [place] [address] Care Team Providers Care Bit Grinder Name Role Phone Zena Yuan MD Primary [...] on filedocumented in this encounter Care Teams Bit Grinder Relationship Specialty Start Date End Date [place] [address] [address] PCP - General Family Medicine 01/11/24 documented as of this encounter
--- OUTSIDE RECORDS SUMMARY | 2024-03-08 15:43 | XMS_ITS | Encounter Summary ---
Author Organization [place] Address [address] [place] [address] Care Team Providers Care Deputy Director Of Nursing Name Role Phone Zena Yuan MD Primary Care Provider Reason for Visit * Auth/Cert Specialty Diagnoses / Procedures Referred By Contsarabjit t Referred To Contact Surgery Diagnoses Intra-abdominal and pelvic swelling, mass and lump, unspecified site Intra-abdominal and pelvic swelling, mass and lump, unspecified site [R19.00] Procedures [facility] LAPAROSCOPY, SURGICAL, ABDOMEN, PERITONEUM & OMENTUM; DX W/ OR W/O SPECIMEN(S) DIAGNOSTIC LAPAROSCOPY, ABDOMINAL BIOPSIES Periop Services [address] [place] [address] Referral ID Status Reason Start Date Expiration Date Visits Re quested Visits Authorized [id number] 1 1 Encounter Details Date Type Department Care Team (Late st Contact Info) Description 01/22/2024 1:08 PM CDT Anesthesia Event [facility] PeriOP Services [address] [place] [address] Rupesh D[place] MD [facility] ANESTHESIA [address] [address] Jazzy Edwards, DANA FOREIGN POLICY OFFICER [address] [address] Anesthesia Record Procedure Summary Procedure Name Responsible Anesthesiologist Anesthesia Start Time Anesthesia Stop Time DIAGNOSTIC LAPAROSCOPY, OMENTAL BIOPSIES, AND EVACUATION OF ASCITES (Abdomen) Rupesh [place] MD 01/22/24 1308 01/22/24 1456 Events Date Time Event Comment 01/22/2024 1208 FOREIGN POLICY OFFICER Ready for Procedure 1234 1308 An Start 1309 An Start Data 1309 AN REASSESS I attest that I have identified and re-evaluated the patient immediately before the induction of anesthesia and I am satisfied that the anesthetic plan is suitable for the patient's condition and procedure. The first vital signs recorded are pre- induction. Jazzy Edwards APRN FOREIGN POLICY OFFICER 1310 MD Present 1312 An Induction 1317 MD Present 1318 An Intubation 1327 Anesthesia Ready for Procedu re 1352 AN INCISION 1431 MD Present 1446 AN Extubation All extubation criteria met prior to removal. 1446 MD Present 1449 an stop data 1456 An Stop Electronically signed by Orville Espino APRN FOREIGN POLICY OFFICER on January 22, 2024 2:56 PM Meds [...] Kinjal Hartley RN 01/22/24 1605 by Barber Pendleton RN ETT Placement Date: 01/22/24; Placement Time: 1318 (created via procedure documentation); Mask Ventilation: 1; Induction Type: Intravenous; Ease of Intubation: Easy; Technique: Video laryngoscopy; Tube Size: 7 mm; VL Blade Size: Walker 3; Grade View: 1; Adjucts: Stylet; Placement Person: FOREIGN POLICY OFFICER; Attempts: 2 01/22/24 1318 by Kenzie Jacinto [...] PM Staff - Anesthesiologist: Shar See MD FOREIGN POLICY OFFICER: Jacinto, Crystal, COORDINATE MEASURING MACHINE TECHNICIAN FOREIGN POLICY OFFICER Performed By: CRNAIndications and Patient Condition Indications [...] and realistic alternatives discussed. Questions answered and patient/sales representative canvas products(s) expressed understanding. - Discussed: - Discussed with: [...] 1:18 PM CDT) Narrative Kenzie Jacinto APRN FOREIGN POLICY OFFICER - 01/22/2024 1:18 PM CDT Kenzie Jacinto APRN CRNA ? 01/22/2024 ??1:31 PM Airway ? Patient location during procedure: OR ? Procedure Start/Stop Times: 01/22/2024 1:18 PM Staff - ? Anesthesiologist: ??Shar See MD ? FOREIGN POLICY OFFICER: Kenzie Jacinto APRN CRNA ? Performed By: [...] Time: 01/22/2024 1:18 PM Rupesh D[place] MD [facility] documented in this encounter Visit Diagnoses [...] r rocuronium injection Intravenous, PRN, Starting on Mon01/22/24 at 1312, Anesthesia Intra-op $Given 01/22/2024 1:12 PM CDT 40 mg documented in this encounter Additional Health Concerns Active Problems Noted Date Diagnosed Date MyC ECC SURG ENROLL 01/17/2024 documented as of this encounter Care Teams Deputy Director Of Nursing Relationship Specialty Start Date End Date Zena Yuan MD [address] [address] PCP - General Family Medicine 01/11/24 documented as of this encounter
--- OUTSIDE RECORDS SUMMARY | 2024-03-08 15:43 | XMS_ITS ---
Author Organization [place] Address [address] [place] [address] Care Team Providers Care Chemistry Faculty Member Name Role Phone Zena Yuan MD Primary Care Provider Transitional Care Management Status:Enrolled (Active) Start date:03/01/2024 Enrollment date:03/02/2024 Continued Care and Services Coordination
--- OUTSIDE RECORDS SUMMARY | 2024-03-08 15:43 | XMS_ITS | Encounter Summary ---
Author Organization [facility] Address [address] [place] [id number] Care Team Providers Care Cake Decorator Name Role Phone Zena Yuan MD Primary Care Provider Reason for Visit * Therapeutic Imaging/IR (Urgent: 3-5 Days) - Closed Specialty Diagnoses / Procedures Referred By Contac t Referred To Contact Radiology. Diagnoses Peritoneal carcinomatosis (H) Procedures CT Paracentesis Initial CT Abdomen Retroperitoneal Biopsy IR Referral Helen Escalera MD [facility] [id number] [place] [id number] Scan [address] [place] [address] Referral ID Status Reason Start Date Expiration Date Visits Re quested Visits Authorized [id number] Closed 01/09/2024 01/08/2025 1 1 Encounter Details Date Type Department Care Team (Late st Contact Info) Description 01/15/2024 10:07 AM CDT - 01/15/2024 11:59 PM CDT Hospital Encounter [facility] [address] [place] [address] Helen Escalera MD [facility] [address] [address] Peritoneal carcinomatosis (H) Discharge Disposition: Home or [...] HUMMEL MD Narrative 01/15/2024 3:18 PM CDT [facility] LOCATION: [facility] CLINICAL HISTORY: Peritoneal carcinomatosis ??. Patient [...] Procedure Note Demetrius Hummel MD - 01/15/2024 [facility] LOCATION: [facility] CLINICAL HISTORY: Peritoneal carcinomatosis . Patient [...] by prescriber during the procedure., Starting on 01/15/24 at 1117, For 1 dose, Dose to be divided into smaller volumes appropriate for the procedure. Provider to administer intradermally., IR Intra-procedure $Given by Other 01/15/2024 11:25 AM CDT 10 mLs documented in this encounter Care Teams Cake Decorator Relationship Specialty Start Date End Date Zena Yuan MD [address] [place] [address] PCP - General Family Medicine 01/11/24 documented as of this encounter
--- OUTSIDE RECORDS SUMMARY | 2024-03-08 15:43 | XMS_ITS | Encounter Summary ---
Author Organization [facility] Address [address] [place] [id number] Care Team Providers Care Plug Grower Name Role Phone Alisha Yuan MD Primary Care Provider [phone] Reason for Referral * Home Health Therapies & Aides (Routine: Next available opening) - Pending Review Specialty Diagnoses / Procedures Referred By Wyatt t Referred To Contact Diagnoses Tumor lysis syndrome Margarita Ruiz MD [address] [place] [address] Referral ID Status Reason Start Date Expiration Date V isits Requested Visits Authorized [id number] Pending Review 02/29/2024 02/28/2025 1 1 Question Answer Reason for Referral: Physical Therapy Physical Therapy Eval and Treat for: Therapeutic Exercise Additional Services Needed: Occupational Therapy Occupational Therapy Eval and Treat for: ADLs Is the patient homebound? Yes Homebound Status (describe the functional limitations that support this patient is confined to his/her home. Medicaid recipients are not required to be homebound.): Patient has difficulty ambulating >100 ft, Requires assistance of another person or specialized equipment is needed I attest that I saw or will see the patient on this date: 02/29/2024 Provider to follow patient ALISHA YUAN [[id number]] Comments Your provider has ordered home health services. If you have not been contacted within 2 days of your discharge please call the selected Home Care agency listed on your Discharge document. If a Home Care agency is NOT listed, please call [phone]. Reason for Visit * Auth/Cert Specialty Diagnoses / Procedures Referred By Wyatt boucher Referred To Contact EMERGENCY MEDICINE Diagnoses Tumor lysis syndrome [facility] [address] [place] [address] Referral ID Status Reason Start Date Expiration Date Visits Re quested Visits Authorized [id number] 1 1 Encounter Details Date Type Department Care Team (Latest Contact Info) Description 02/22/2024 10:14 PM CDT - 02/29/2024 12:13 PM CDT Hospital Encounter [place] [id number] [facility] [address] [place] [id number] Mathew Chen MD [address] [place] [id number] Gallito Whitehead MD [address] [place], [place] [id number] Margarita Ruiz MD [address] [place], [place] [id number] Constipation, unspecified constipation type (Primary Dx); Tumor lysis syndrome Discharge Disposition: Home-Health Care Svc Social History Tobacco Use Types Packs/Day Years [...] Mass Index 28.84 02/25/2024 2:15 PM CDT documented in this encounter Discharge Summaries * Brit Thompson RN - 02/29/2024 11:57 AM CDT Discharge Note Patient discharged to Assisted Living via private vehicle accompanied by son. IV: Discontinued Prescriptions faxed to pharmacy. Belongings reviewed and sent with patient and family. Home medications returned to patient: NA Equipment sent with: patient, N/A. patient and family verbalizes understanding of discharge instructions. AVS given to patient and family. 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 as calculated from the following: Height as of this encounter: 1.626 m (5' 4). Weight as of this encounter: 76.2 kg (167 lb 15.9 oz). # Moderate Malnutrition: based on nutrition assessment Follow-ups Needed After Discharge Follow-up Appointments Follow-up and recommended labs and tests Follow up with primary care provider, Alisha Yuan, within 7 days for hospital follow- up and regarding new diagnosis. The following labs/tests are recommended: BMP, ionized calcium. Home care can draw these labs. Unresulted Labs Ordered in the Past 30 Days of this Admission No orders found from 01/23/2024 to 02/23/2024. Discharge Disposition Discharged to facility, with home health care Condition at discharge: Stable Hospital Course Dipika Franco is a 83 year old female admitted on 02/22/2024. She presents as a transfer from [facility] in the setting of tumor lysis syndrome after her first cycle of chemotherapy for mantle cell lymphoma. Rasburicase not available at outside hospital, and patient with renal insufficiency. 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 Recently underwent her first cycle of Rituxan and bendeka 02/18 and 02/19. Also treated with Neulasta 02/19. LDH 347 Elevated uric acid: 9.6 02/22/2024. Hypercalcemia: 12.1 02/22/2024. Received zoledronic acid 02/20/2024. Note that she had bradycardia in the 40s at outside hospital, but this has improved to a heart rate in the 60s at this time. Anemia: Likely secondary to chemotherapy. She did receive 1 unit of packed red blood cells for hemoglobin of 7.7 02/21/2024 at outside facility. Repeat hemoglobin increased to 10. 6 mg rasburicase x 1 Checked uric acid daily. See note from Pharm.D., uric acid now low, consider adjusting allopurinol order. Allopurinol discontinued. [place] oncology consult requested Treated with IV fluids, then developed modest fluid overload and received Lasix See comments from Dr. Miranda, I had a discussion with the patient -> her type of lymphoma is very sensitive to treatment and anticipate high likelihood of improvement in her lymphoma with continued treatments. She appears to be more open to pursue treatments. She is aware though that treatments do come at the cost of toxicities. I will arrange for her outpatient meeting with Dr. Velarde to be postponed (scheduled for Monday). 02/26: Modest increase in creatinine and calcium. I discussed with Dr. Finley. He ordered second dose of Zometa. She is awake, alert, her only obvious symptom related to hypercalcemia is constipation, and patient says she has been constipated all my life. Severe protein calorie malnutrition in the setting of active malignancy. Over 60 pound weight loss this past year Generalized weakness and physical deconditioning Regular diet as tolerated Nutritional supplements between meals Physical therapy consulted Up with assist, fall precautions Acute kidney injury: Creatinine 1.5 as of 02/22/2024. As high as 2.1 this past week through outside records. [place] potentially secondary to both tumor lysis, dehydration, and IV contrast for recent CT. Rasburicase treatment as above with reduced dose allopurinol for hyperuricemia. 02/28: Creatinine is within range described above. Recheck in future. Avoid nephrotoxins. Hypokalemia Hypomagnesemia Resolved Constipation: Chronic ongoing issue, likely related to peritoneal carcinomatosis, potentially further exacerbated by new hypercalcemia. Reports he has not had a bowel movement in 5 days Scheduled senna and MiraLAX, increased doses Checked abdominal x-ray, it shows, Moderate to large amount of stool throughout the colon likely indicates a degree of constipation. Try suppository and/or enema Additional as needed bowel regimen available Consultations This Hospital Stay HEMATOLOGY & ONCOLOGY IP CONSULT PHYSICAL THERAPY ADULT IP CONSULT CARE MANAGEMENT / SOCIAL WORK IP CONSULT CARE MANAGEMENT / SOCIAL WORK IP CONSULT VASCULAR ACCESS ADULT IP CONSULT Code Status No CPR- Do NOT Intubate Time Spent on this Encounter I, Margarita Ruiz MD, personally saw the patient today and spent greater than 30 minutes discharging this patient. Margarita Ruiz MD [place] [address] [address] [place] [address], [address] [facility] [id number] Physical Exam Vital Signs: Temp: 97.5 ??F (36.4 ??C) Temp src: Oral BP: (!) 160/61 Pulse: 57 Resp: 18 SpO2: 91 % O2 Device: None (Room air) Weight: 167 lbs 15.85 oz I saw and examined the patient on the date of discharge. Primary Care Physician Alisha Yuan Discharge Orders Home Care Referral Reason for your hospital stay You had complications (tumor lysis) from receiving chemotherapy and needed treatment with IV fluids. Follow-up and recommended labs and tests Follow up with primary care provider, Alisha Yuan, within 7 days for hospital follow- up and regarding new diagnosis. The following labs/tests are recommended: BMP, ionized calcium. Home care can draw these labs. Activity Your activity upon discharge: activity as tolerated Diet Follow this diet upon discharge: Orders Placed This Encounter Snacks/Supplements Adult: Ensure Enlive; Between Meals Snacks/Supplements Adult: Magic Cup; With Meals Combination Diet Regular Diet Adult Significant Results and Procedures Most Recent 3 CBC's: Recent Labs Lab Test 02/29/24 0823 02/28/24 0803 02/27/24 0931 WBC 15.1* 15.8* 16.7* HGB 9.2* 10.4* 10.0* MCV 90 91 90 PLT 135* 138* 159 Most Recent 3 BMP's: Recent Labs Lab Test 02/29/24 0802/28/24 0803 02/27/24 0931 NA 137 138 140 POTASSIUM 3.4 3.7 3.8 CHLORIDE 99 99 100 CO2 27 32* 29 BUN 27.6* 27.0* 24.8* CR 1.89* 1.80* 1.67* ANIONGAP 11 7 11 CHARLES 12.8* 13.7* 13.8* GLC 117* 120* 138* , Results for orders placed or performed during the hospital encounter of 02/22/24 XR Chest 2 Views Narrative EXAM: XR CHEST 2 VIEWS LOCATION: [facility] DATE: 02/25/2024 INDICATION: Shortness of breath. Hypercalcemia with fluid, but also got Rasburicase recently. COMPARISON: CT chest, abdomen and pelvis with IV contrast 01/03/2024. Impression IMPRESSION: Small bilateral pleural effusions have developed with associated passive atelectasis inthe adjacent lungs. Normal cardiac size and pulmonary vascularity. No suspicious adenopathy. Atherosclerotic thoracic aorta. Postoperative changes cervical spine with anterior plate and screw fixation. Long segment thoracolumbar spinal hardware, partially visualized, unchanged. XR Abdomen 1 View Narrative ABDOMEN ONE VIEW 02/26/2024 1:48 PM HISTORY: Assess for obstipation. COMPARISON: 01/03/2024 Impression IMPRESSION: There are a few air-fluid levels in nondilated colon. Moderate to large amount of stool throughout the colon likely indicates a degree of constipation. No obstruction or free intraperitoneal air. MAYRA MCFARLANE MD Discharge Medications Current Discharge Medication List START taking these medications Details polyethylene glycol (MIRALAX) 17 GM/Dose powder Take 17 g by mouth daily Qty: 510 g, Refills: 0 Associated Diagnoses: Constipation, unspecified constipation type senna-docusate (SENOKOT-S/PERICOLACE) 8.6-50 MG tablet Take 3 tablets by mouth 2 times daily Qty: 180 tablet, Refills: 0 Associated Diagnoses: Constipation, unspecified constipation type CONTINUE these medications which have NOT CHANGED Details Acetaminophen 325 MG CAPS Take 325-650 mg by mouth every 4 hours as needed potassium chloride ER (K-TAB) 20 MEQ CR tablet Take 20 mEq by mouth rosuvastatin (CRESTOR) 20 MG tablet Take 20 mg by mouth daily Allergies Allergies Allergen Reactions Blood Transfusion Related (Informational Only) Other (See Comments) Patient has a history of a clinically significant antibody against RBC antigens. A delay in compatible RBCs may occur. Metformin Nausea Niacin Hives Sulfa Antibiotics Hives documented in this encounter Medications at Time of Discharge Medication Sig Dispensed Refills Start Date End Date Acetaminophen 325 MG CAPS Take 325-650 mg by mouth every 4 hours as needed allopurinol (ZYLOPRIM) 100 MG tabletIndications:Tumor lysis syndrome Take 1 tablet (100 mg) by mouth 3 times daily 90 tablet 02/29/2024 polyethylene glycol (MIRALAX) 17 GM/Dose powderIndications:Constip ation, unspecified constipation type Take 17 g by mouth daily 510 g 02/29/2024 potassium chloride ER (K-TAB) 20 MEQ CR tablet Take 20 mEq by mouth rosuvastatin (CRESTOR) 20 MG tablet Take 20 mg by mouth daily senna-docusate (SENOKOT-S/PERICOLACE) 8.6-50 MG tabletIndications:Constip ation, unspecified constipation type Take 3 tablets by mouth 2 times daily 180 tablet 02/29/2024 documented as of this encounter Progress Notes * Angelita Gr LSW - 02/29/2024 10:47 AM CDT Care Management Discharge Note Discharge Date: 02/29/2024 [address]charge [facility]position: [facility] Discharge Services: None Discharge DME: Walker Discharge Transportation: Family Private pay costs discussed: Not applicable Does the patient's insurance plan have a 3 day qualifying hospital stay waiver? No PAS Confirmation Code: Patient/family educated on Medicare website which has current facility and service quality ratings:yes Education Provided on the Discharge Plan: Yes Persons Notified of Discharge Plans: Patients odalis Ramirez Patient/Family in Agreement with the Plan: yes Handoff Referral Completed: No Additional Information: Patient will be discharging today to [facility]. Address Change Clerk faxed orders to Juliana RN at [phone]. Address Change Clerk called Juliana on both her cell phone ([phone]) and her desk phone ([phone]) and left a message asking for a call back regarding discharge for today. Address Change Clerk touched base with patients son James who states he is here and able to transport today. James states he has been in touch with Juliana as well about discharge for today. Address Change Clerk updated bedside RN about discharge. Address Change Clerk updated NST that we would need a packet for discharge. BRITTANY Telles * Grant Miranda MD - 02/29/2024 8:45 AM CDT [facility] Progress Note Primary Oncologist: Dr. Velarde [place] Assessment and Plan: Follicular lymphoma - Stage IV, grade 1-2 - Symptoms: Weight loss, night sweats, early satiety - Started Bendamustine Rituximab 02/19/24, did not receive Bendamustine day 2 due to severe hypercalcemia which prompted hospital admission - Uric acid elevated at outside hospital, [facility] and received 6mg Rasbirucase - She received Neulasta growth factor support 2. TLS - Increased creatinine - IVF and s/p rasburicase - uric acid down to 0.4mg/dl on 02/24/2024 after Rasburicase dose - uric acid at 3.5mg/dl on 02/28, K+ normal -serum creatinine at 1.89mg/dl on 02/28. Encourage generous oral fluid intake -suggest allopurinol 100mg po tid (dose adjusted for renal function) 3. Severe hypercalcemia - Received Zometa 02/20/24 and 02/27/2024 - Most likely contributing to her malaise - IVF stopped due to worsening SOB -Calcium level 113.7mg/dl on 02/28/2024 despite receiving repeat dose of Zometa on 02/27/2024 -hypercalcemia likely exacerbated by her lymphoma. -restarted NS@75ml/hr; received dexamethasone 10mg IV x 1 on 02/28/2024 -serum calcium levels 02/29/2024 improved to 12.8mg/dl, ionized calcium improved to 6.8mg/dl -her hypercalcemia is likely related to her lymphoma. Would expect improvement with lymphoma-directed therapy. Recommend follow up with Dr Velarde for continued treatments. 4. Upper abdominal pain Dr. Velarde suspects this is related to malignancy; diffuse adenopathy in the abdomen with omental carcinomatosis, peritoneal nodularity with thickening and mild ascites, currently stable. 5. Constipation, chronic had a bowel movement yesterday, continue stool softener regimen. PLAN - Continue supportive measures -Our team had a discussion with the patient -> her type of lymphoma is very sensitive to treatment and anticipate high likelihood of improvement in her lymphoma with continued treatments. She appears to be more open to pursue treatments. She is aware though that treatments do come at the cost of toxicities. - Continue allopurinol 100mg po tid (dose adjusted for renal function) -okay to discharge home from hematology/oncology stand point with plan to follow up with Dr Velarde next week in the clinic with repeat labs. We will arrange follow up in the clinic with Dr Syd Miranda MD Interval History: Denied new complaints. Reports having a rough night last night. Denied worsening SOB. Asking for discharge Review of Systems: As per subjective, otherwise 5 systems reviewed and negative. Physical Exam: Blood pressure (!) 160/61, pulse 57, temperature 97.5 ??F (36.4 ??C), temperature source Oral, resp. rate 18, height 1.626 m (5' 4), weight 76.2 kg (167 lb 15.9 oz), SpO2 91%. Vital Sign Ranges Temperature Temp Av.2 ??F (36.8 ??C) Min: 98.1 ??F (36.7 ??C) Max: 98.4 ??F (36.9 ??C) Blood pressure Systolic (24hrs), Av , Min:146 , Max:161 Diastolic (24hrs), Av, Min:56, Max:92 Pulse Pulse Av.5 Min: 63 Max: 70 Respirations Resp Av Min: 18 Max: 18 Pulse oximetry SpO2 Av % Min: 91 % Max: 93 % Intake/Output Summary (Last 24 hours) at 02/24/2024 1125 Last data filed at 02/24/2024 1123 Gross per 24 hour Intake 240 ml Output 1050 ml Net -810 ml Constitutional: No acute distress. Skin: No rashes, petechiae, or ecchymoses. HEENT: Normocephalic atraumatic sclera anicteric Neck: Supple, no JVD no lymphadenopathy. Lungs: No respiratory distress, no wheezing. Cardiovascular: Regular\ Abdomen: Soft, nontender, nondistended with no palpable hepatosplenomegaly. Extremities: No leg edema. Neurological: Nonfocal Medications: No current outpatient medications on file. Data: Results for orders placed or performed during the hospital encounter of 02/22/24 (from the past 24 hour(s)) Ionized Calcium Result Value Ref Range Calcium Ionized Whole Blood 6.8 (H) 4.4 - 5.2 mg/dL * Margarita Ruiz MD - 02/28/2024 4:24 PM CDT [facility] Medicine Progress Note - Hospitalist Service Date of Admission: 02/22/2024 Assessment & Plan Dipika Franco is a 83 year old female admitted on 02/22/2024. She presents as a transfer from [facility] in the setting of tumor lysis syndrome after her first cycle of chemotherapy for mantle cell lymphoma. Rasburicase not available at outside hospital, and patient with renal insufficiency. 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 Recently underwent her first cycle of Rituxan and bendeka 02/18 and 02/19. Also treated with Neulasta 02/19. LDH 347 Elevated uric acid: 9.6 02/22/2024. Hypercalcemia: 12.1 02/22/2024. Received zoledronic acid 02/20/2024. Note that she had bradycardia in the 40s at outside hospital, but this has improved to a heart rate in the 60s at this time. Anemia: Likely secondary to chemotherapy. She did receive 1 unit of packed red blood cells for hemoglobin of 7.7 02/21/2024 at outside facility. Repeat hemoglobin increased to 10. 6 mg rasburicase x 1 Check uric acid daily. See note from Pharm.D., uric acid now low, consider adjusting allopurinol order. Allopurinol discontinued. [place] oncology consult requested 1L NS bolus and Normal saline at 125/h; follow intake and output. 02/23: RN paged indicating that patient's peripheral IV infiltrated and, her arm is puffy. She is also reporting a new wheezy cough, swollen ankles, and her lungs sound wheezy. Reduce IV fluid rate, give Lasix 20 mg IV x 1 If hypercalcemia persists, can redose zoledronic acid 02/27/2024. Does not meet severity criteria for calcitonin, but monitor for worsening. See comments from Dr. Miranda, I had a discussion with the patient -> her type of lymphoma is very sensitive to treatment and anticipate high likelihood of improvement in her lymphoma with continued treatments. She appears to be more open to pursue treatments. She is aware though that treatments do come at the cost of toxicities. I will arrange for her outpatient meeting with Dr. Velarde to be postponed (scheduled for Monday). On-call MD was paged 02/24 at 0300 regarding wheezing, dyspnea. Two-view chest x- ray showed small bilateral pleural effusions with associated passive atelectasis, normal heart size and pulmonary vascularity. I appreciate Dr. Whitehead's care. He held IV fluids and ordered additional Lasix 40 mg IV x 1 See UptoDate, There are no guidelines that address the optimal duration of hydration...... IV hydration should be continued at least until tumor burden is largely resolved, there is no evidence of significant tumor lysis (as indicated by serum uric acid and phosphorus level), and patient can drinkadequately with good urine output. 02/24: Creatinine is slightly higher today. Uric acid is below normal,, LDH is just above the upper limit of normal. Okay to remain off IV fluids for now, recheck labs in a.m. 02/25: Creatinine is stable. Uric acid has increased, but is still below the lower limit of normal. LDH and phosphorus are both within normal limits. Okay to remain off IV fluids. 02/26: Modest increase in creatinine and calcium. I discussed with Dr. Finley. He ordered second dose of Zometa. She is awake, alert, her only obvious symptom related to hypercalcemia is constipation, and patient says she has been constipated all my life. 02/27: Modest increase in creatinine, uric acid and ionized calcium today. Discussed with Dr. Finley. Give dexamethasone 10 mg IV x 1. Begin NS at 75 cc an hour. Recheck labs in a.m. Severe protein calorie malnutrition in the setting of active malignancy. Over 60 pound weight loss this past year Generalized weakness and physical deconditioning Regular diet as tolerated Nutritional supplements between meals Physical therapy consulted Up with assist, fall precautions Acute kidney injury: Creatinine 1.5 as of 02/22/2024. As high as 2.1 this past week through outside records. [place] potentially secondary to both tumor lysis, dehydration, and IV contrast for recent CT. Rasburicase treatment as above with reduced dose allopurinol for hyperuricemia. Intake and output Follow labs IV saline 1 L bolus with 125 mL/h thereafter; adjust pending urine output Patient wheezing 02/23: decrease IVF to 50 ml/hr 02/24: See discussion above, creatinine is slightly higher today, likely in part due to receiving diuretics x 2 doses 02/26: Creatinine again is slightly increased. Plan to remain off IV fluids since she had symptoms associated with fluid overload 02/27: See discussion above, begin IV fluids and recheck creatinine Hypokalemia Hypomagnesemia Resolved Constipation: Chronic ongoing issue, likely related to peritoneal carcinomatosis, potentially further exacerbated by new hypercalcemia. Reports he has not had a bowel movement in 5 days Scheduled senna and MiraLAX, increased doses Checked abdominal x-ray, it shows, Moderate to large amount of stool throughout the colon likely indicates a degree of constipation. Try suppository and/or enema Additional as needed bowel regimen available Diet: Combination Diet Regular Diet Adult Snacks/Supplements Adult: Ensure Enlive; Between Meals Snacks/Supplements Adult: Magic Cup; With Meals DVT Prophylaxis: Enoxaparin (Lovenox) SQ [place] Catheter: Not present Lines: None Cardiac Monitoring: None Code Status: No CPR- Do NOT Intubate Clinically Significant Risk Factors # Hypercalcemia: Highest Ca = 13.8 mg/dL in last 2 days, will monitor as appropriate # Hypoalbuminemia: Lowest albumin = 3 g/dL at 02/23/2024 4:36 AM, will monitor as appropriate Disposition Plan Medically Ready for Discharge: Likely medically ready for discharge tomorrow, pending labs Margarita Ruiz MD Hospitalist Service [facility] Securely message with [employer] (more info) Text page via [facility] Paging/Directory Interval History I am feeling stronger. Patient says her strength is returning. She has a cough, she says this is chronic. She has no new GI complaints. Physical Exam Vital Signs: Temp: 98.1 ??F (36.7 ??C) Temp src: Oral BP: (!) 146/57 Pulse: 77 Resp: 16 SpO2: 91 % O2 Device: None (Room air) Weight: 169 lbs 3.2 oz Constitutional: Awake, alert, cooperative, no apparent distress Respiratory: \Coughs occasionally during interview. Lungs are clear to auscultation bilaterally Cardiovascular: regular rate and rhythm GI: Normal bowel sounds, soft, non-distended, non-tender Skin/Integumen: No rash on exposed skin. No lower extremity edema Other: Mood is pleasant Medical Decision Making 35 MINUTES SPENT BY ME on the date of service doing chart review, history, exam, documentation & further activities per the note. Including discussion with patient, bedside RN, patient's son, Bill and social work and oncology Data I have personally reviewed the following data over the past 24 hrs: 15.8 (H) \ 10.4 (L) / 138 (L) 138 99 27.0 (H) / 120 (H) 3.7 32 (H) 1.80 (H) \ Imaging results reviewed over the past 24 hrs: No results found for this or any previous visit (from the past 24 hour(s)). * Grant Miranda MD - 02/28/2024 2:44 PM CDT [place] [facility] Progress Note Primary Oncologist: Dr. Velarde [place] Assessment and Plan: Follicular lymphoma - Stage IV, grade 1-2 - Symptoms: Weight loss, night sweats, early satiety - Started Bendamustine Rituximab 02/19/24, did not receive Bendamustine day 2 due to severe hypercalcemia which prompted hospital admission - Uric acid elevated at outside hospital, transferred [facility] and received 6mg Rasbirucase - She received Neulasta growth factor support 2. TLS - Increased creatinine - IVF and s/p rasburicase - uric acid down to 0.4mg/dl on 02/24/2024 after Rasburicase dose , uric acid increased but continuesto be low overall. Continue allopurinol. 3. Severe hypercalcemia - Received Zometa 02/20/24 and 02/27/2024 - Most likely contributing to her malaise - IVF stopped due to worsening SOB -Calcium level 113.7mg/dl on 02/28/2024 despite receiving repeat dose of Zometa on 02/27/2024 -hypercalcemia likely exacerbated by her lymphoma. Suggest gentle hydration + dexamethasone 10mg IVx 1 dose today -recheck calcium level with am labs tomorrow 4. Upper abdominal pain Dr. Velarde suspects this is related to malignancy; diffuse adenopathy in the abdomen with omental carcinomatosis, peritoneal nodularity with thickening and mild ascites, currently stable. 5. Constipation, chronic had a bowel movement yesterday, continue stool softener regimen. PLAN - Continue supportive measures -Our team had a discussion with the patient -> her type of lymphoma is very sensitive to treatment and anticipate high likelihood of improvement in her lymphoma with continued treatments. She appears to be more open to pursue treatments. She is aware though that treatments do come at the cost of toxicities. -Follow-up with Dr. Velarde recommended to be within a week after discharge, close monitoring of her lab work depending on numbers upon discharge. - Continue allopurinol Our team will continue to follow her with you. Discussed above plan with Dr Joseph Miranda MD Interval History: Denied new complaints. More or less bed bound. DEnied nausea/vomiting at this time. Review of Systems: As per subjective, otherwise 5 systems reviewed and negative. Physical Exam: Blood pressure (!) 164/68, pulse 61, temperature 97.9 ??F (36.6 ??C), temperature source Oral, resp. rate 16, height 1.626 m (5' 4), weight 76.7 kg (169 lb 3.2 oz), SpO2 94%. Vital Sign Ranges Temperature Temp Av.2 ??F (36.8 ??C) Min: 98.1 ??F (36.7 ??C) Max: 98.4 ??F (36.9 ??C) Blood pressure Systolic (24hrs), Av , Min:146 , Max:161 Diastolic (24hrs), Av, Min:56, Max:92 Pulse Pulse Av.5 Min: 63 Max: 70 Respirations Resp Av Min: 18 Max: 18 Pulse oximetry SpO2 Av % Min: 91 % Max: 93 % Intake/Output Summary (Last 24 hours) at 02/24/2024 1125 Last data filed at 02/24/2024 1123 Gross per 24 hour Intake 240 ml Output 1050 ml Net -810 ml Constitutional: No acute distress. Skin: No rashes, petechiae, or ecchymoses. HEENT: Normocephalic atraumatic sclera anicteric Neck: Supple, no JVD no lymphadenopathy. Lungs: No respiratory distress, no wheezing. Cardiovascular: Regular\ Abdomen: Soft, nontender, nondistended with no palpable hepatosplenomegaly. Extremities: No leg edema. Neurological: Nonfocal Medications: No current outpatient medications on file. Data: Results for orders placed or performed during the hospital encounter of 02/22/24 (from the past 24 hour(s)) Basic metabolic panel Result Value Ref Range Sodium 138 135 - 145 mmol/L Potassium 3.7 3.4 - 5.3 mmol/L Chloride 99 98 - 107 mmol/L Carbon Dioxide (CO2) 32 (H) 22 - 29 mmol/L Anion Gap 7 7 - 15 mmol/L Urea Nitrogen 27.0 (H) 8.0 - 23.0 mg/dL Creatinine 1.80 (H) 0.51 - 0.95 mg/dL GFR Estimate 27 (L) >60 mL/min/1.73m2 Calcium 13.7 (H) 8.8 - 10.2 mg/dL Glucose 120 (H) 70 - 99 mg/dL CBC with platelets Result Value Ref Range WBC Count 15.8 (H) 4.0 - 11.0 10e3/uL RBC Count 3.59 (L) 3.80 - 5.20 10e6/uL Hemoglobin 10.4 (L) 11.7 - 15.7 g/dL Hematocrit 32.5 (L) 35.0 - 47.0 % MCV 91 78 - 100 fL MCH 29.0 26.5 - 33.0 pg MCHC 32.0 31.5 - 36.5 g/dL RDW 14.0 10.0 - 15.0 % Platelet Count 138 (L) 150 - 450 10e3/uL Magnesium Result Value Ref Range Magnesium 1.8 1.7 - 2.3 mg/dL Uric acid Result Value Ref Range Uric Acid 3.4 2.4 - 5.7 mg/dL Ionized Calcium Result Value Ref Range Calcium Ionized Whole Blood 7.3 (HH) 4.4 - 5.2 mg/dL * Margarita Ruiz MD - 02/27/2024 4:36 PM CDT [facility] Medicine Progress Note - Hospitalist Service Date of Admission: 02/22/2024 Assessment & Plan Dipika Franco is a 83 year old female admitted on 02/22/2024. She presents as a transfer from [facility] in the setting of tumor lysis syndrome after her first cycle of chemotherapy for mantle cell lymphoma. Rasburicase not available at outside hospital, and patient with renal insufficiency. 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 Recently underwent her first cycle of Rituxan and bendeka 02/18 and 02/19. Also treated with Neulasta 02/19. LDH 347 Elevated uric acid: 9.6 02/22/2024. Hypercalcemia: 12.1 02/22/2024. Received zoledronic acid 02/20/2024. Note that she had bradycardia in the 40s at outside hospital, but this has improved to a heart rate in the 60s at this time. Anemia: Likely secondary to chemotherapy. She did receive 1 unit of packed red blood cells for hemoglobin of 7.7 02/21/2024 at outside facility. Repeat hemoglobin increased to 10. 6 mg rasburicase x 1 Check uric acid daily. See note from Pharm.D., uric acid now low, consider adjusting allopurinol order. Allopurinol discontinued. [place] [facility] consult requested 1L NS bolus and Normal saline at 125/h; follow intake and output. 02/23: RN paged indicating that patient's peripheral IV infiltrated and, her arm is puffy. She is also reporting a new wheezy cough, swollen ankles, and her lungs sound wheezy. Reduce IV fluid rate, give Lasix 20 mg IV x 1 If hypercalcemia persists, can redose zoledronic acid 02/27/2024. Does not meet severity criteria for calcitonin, but monitor for worsening. See comments from Dr. Miranda, I had a discussion with the patient -> her type of lymphoma is very sensitive to treatment and anticipate high likelihood of improvement in her lymphoma with continued treatments. She appears to be more open to pursue treatments. She is aware though that treatments do come at the cost of toxicities. I will arrange for her outpatient meeting with Dr. Velarde to be postponed (scheduled for Monday). On-call MD was paged 02/24 at 0300 regarding wheezing, dyspnea. Two-view chest x- ray showed small bilateral pleural effusions with associated passive atelectasis, normal heart size and pulmonary vascularity. I appreciate Dr. Whitehead's care. He held IV fluids and ordered additional Lasix 40 mg IV x 1 See UptoDate, There are no guidelines that address the optimal duration of hydration...... IV hydration should be continued at least until tumor burden is largely resolved, there is no evidence of significant tumor lysis (as indicated by serum uric acid and phosphorus level), and patient can drinkadequately with good urine output. 02/24: Creatinine is slightly higher today. Uric acid is below normal,, LDH is just above the upper limit of normal. Okay to remain off IV fluids for now, recheck labs in a.m. 02/25: Creatinine is stable. Uric acid has increased, but is still below the lower limit of normal. LDH and phosphorus are both within normal limits. Okay to remain off IV fluids. 02/26: Modest increase in creatinine and calcium. I discussed with Dr. Finley. He ordered second dose of Zometa. She is awake, alert, her only obvious symptom related to hypercalcemia is constipation, and patient says she has been constipated all my life. Severe protein calorie malnutrition in the setting of active malignancy. Over 60 pound weight loss this past year Generalized weakness and physical deconditioning Regular diet as tolerated Nutritional supplements between meals Physical therapy consulted Up with assist, fall precautions Acute kidney injury: Creatinine 1.5 as of 02/22/2024. As high as 2.1 this past week through outside records. [place] potentially secondary to both tumor lysis, dehydration, and IV contrast for recent CT. Rasburicase treatment as above with reduced dose allopurinol for hyperuricemia. Intake and output Follow labs IV saline 1 L bolus with 125 mL/h thereafter; adjust pending urine output Patient wheezing 02/23: decrease IVF to 50 ml/hr 02/24: See discussion above, creatinine is slightly higher today, likely in part due to receiving diuretics x 2 doses 02/26: Creatinine again is slightly increased. Plan to remain off IV fluids since she had symptoms associated with fluid overload Hypokalemia Hypomagnesemia Resolved Constipation: Chronic ongoing issue, likely related to peritoneal carcinomatosis, potentially further exacerbated by new hypercalcemia. Reports he has not had a bowel movement in 5 days Scheduled senna and MiraLAX, increased doses Checked abdominal x-ray, it shows, Moderate to large amount of stool throughout the colon likely indicates a degree of constipation. Try suppository and/or enema Additional as needed bowel regimen available Diet: Combination Diet Regular Diet Adult Snacks/Supplements Adult: Ensure Enlive; Between Meals Snacks/Supplements Adult: Magic Cup; With Meals DVT Prophylaxis: Enoxaparin (Lovenox) SQ [place] Catheter: Not present Lines: None Cardiac Monitoring: None Code Status: No CPR- Do NOT Intubate Clinically Significant Risk Factors # Hypokalemia: Lowest K = 3.3 mmol/L in last 2 days, will replace as needed # Hypercalcemia: Highest Ca = 13.8 mg/dL in last 2 days, will monitor as appropriate # Hypoalbuminemia: Lowest albumin = 3 g/dL at 02/23/2024 4:36 AM, will monitor as appropriate Disposition Plan Medically Ready for Discharge: Likely medically ready for discharge tomorrow Margarita Ruiz MD Hospitalist Service [facility] Securely message with [employer] (more info) Text page via [employer] Paging/Directory Interval History I have had this cough for years. Patient again reports she has a cough, again says her primary MDthought it was due to a statin medication (?). She was able to have a bowel movement, feels slightly more comfortable. S Physical Exam Vital Signs: Temp: 97.5 ??F (36.4 ??C) Temp src: Oral BP: (!) 159/61 Pulse: 61 Resp: 16 SpO2: 94 % O2 Device: None (Room air) Weight: 171 lbs 1.23 oz Constitutional: Awake, alert, cooperative, no apparent distress Respiratory: Clear to auscultation bilaterally, no crackles or wheezing Cardiovascular: regular rate and rhythm GI: Normal bowel sounds, soft, non-distended, non-tender Skin/Integumen: No rash on exposed skin. No lower extremity edema Other: Mood is pleasant Medical Decision Making 35 MINUTES SPENT BY ME on the date of service doing chart review, history, exam, documentation & further activities per the note. Including discussion with patient, bedside RN, patient's son, Bill and social work Data I have personally reviewed the following data over the past 24 hrs: 16.7 (H) \ 10.0 (L) / 159 140 100 24.8 (H) / 138 (H) 3.8 29 1.67 (H) \ Imaging results reviewed over the past 24 hrs: No results found for this or any previous visit (from the past 24 hour(s)). * Reji Finley MD - 02/27/2024 3:21 PM CDT [facility] Progress Note Primary Oncologist: Shereen Belle Assessment and Plan: Follicular lymphoma - Stage IV, grade 1-2 - Symptoms: Weight loss, night sweats, early satiety - Started Bendamustine Rituximab 02/19/24, did not receive Bendamustine day 2 due to severe hypercalcemia which prompted hospital admission - Uric acid elevated at outside hospital, transferred [facility] and received 6mg Rasbirucase - She received Neulasta growth factor support 2. TLS - Increased creatinine - IVF and s/p rasburicase - uric acid down to 0.4mg/dl on 02/24/2024 after Rasburicase dose , uric acid increased but continuesto be low overall. Continue allopurinol. 3. Severe hypercalcemia - Received Zometa 02/20/24 - Most likely contributing to her malaise - Calcium level on 02/24/2024 down to 12.6mg/dl - IVF stopped due to worsening SOB -Calcium level is higher today, will proceed with second dose of Zometa. 4. Upper abdominal pain Dr. Velarde suspects this is related to malignancy; diffuse adenopathy in the abdomen with omental carcinomatosis, peritoneal nodularity with thickening and mild ascites, currently stable. 5. Constipation, chronic had a bowel movement yesterday, continue stool softener regimen. PLAN - Continue supportive measures -I will proceed with a second dose of Zometa today. -Our team had a discussion with the patient -> her type of lymphoma is very sensitive to treatment and anticipate high likelihood of improvement in her lymphoma with continued treatments. She appears to be more open to pursue treatments. She is aware though that treatments do come at the cost of toxicities. -Follow-up with Dr. Velarde recommended to be within a week after discharge, close monitoring of her lab work depending on numbers upon discharge. - Continue allopurinol Discussed with her son James on the phone. Our team will continue to follow her with you Reji Finley MD Interval History: Patient feels well overall. She continues to have low appetite and low oral intake. IV fluids discontinued over the weekend due to shortness of breath. She has no nausea or vomiting today. Lab reviewed showing increase in calcium level and creatinine. CBC is stable. Review of Systems: As per subjective, otherwise 5 systems reviewed and negative. Physical Exam: Blood pressure (!) 164/68, pulse 63, temperature 98.2 ??F (36.8 ??C), temperature source Oral, resp. rate 14, height 1.626 m (5' 4), weight 77.6 kg (171 lb 1.2 oz), SpO2 92%. Vital Sign Ranges Temperature Temp Av.2 ??F (36.8 ??C) Min: 98.1 ??F (36.7 ??C) Max: 98.4 ??F (36.9 ??C) Blood pressure Systolic (24hrs), Av , Min:146 , Max:161 Diastolic (24hrs), Av, Min:56, Max:92 Pulse Pulse Av.5 Min: 63 Max: 70 Respirations Resp Av Min: 18 Max: 18 Pulse oximetry SpO2 Av % Min: 91 % Max: 93 % Intake/Output Summary (Last 24 hours) at 02/24/2024 1125 Last data filed at 02/24/2024 1123 Gross per 24 hour Intake 240 ml Output 1050 ml Net -810 ml Constitutional: No acute distress. Skin: No rashes, petechiae, or ecchymoses. HEENT: Normocephalic atraumatic sclera anicteric Neck: Supple, no JVD no lymphadenopathy. Lungs: No respiratory distress, no wheezing. Cardiovascular: Regular\ Abdomen: Soft, nontender, nondistended with no palpable hepatosplenomegaly. Extremities: No leg edema. Neurological: Nonfocal Medications: No current outpatient medications on file. Data: Results for orders placed or performed during the hospital encounter of 02/22/24 (from the past 24 hour(s)) Basic metabolic panel Result Value Ref Range Sodium 140 135 - 145 mmol/L Potassium 3.8 3.4 - 5.3 mmol/L Chloride 100 98 - 107 mmol/L Carbon Dioxide (CO2) 29 22 - 29 mmol/L Anion Gap 11 7 - 15 mmol/L Urea Nitrogen 24.8 (H) 8.0 - 23.0 mg/dL Creatinine 1.67 (H) 0.51 - 0.95 mg/dL GFR Estimate 30 (L) >60 mL/min/1.73m2 Calcium 13.8 (H) 8.8 - 10.2 mg/dL Glucose 138 (H) 70 - 99 mg/dL CBC with platelets Result Value Ref Range WBC Count 16.7 (H) 4.0 - 11.0 10e3/uL RBC Count 3.50 (L) 3.80 - 5.20 10e6/uL Hemoglobin 10.0 (L) 11.7 - 15.7 g/dL Hematocrit 31.4 (L) 35.0 - 47.0 % MCV 90 78 - 100 fL MCH 28.6 26.5 - 33.0 pg MCHC 31.8 31.5 - 36.5 g/dL RDW 14.2 10.0 - 15.0 % Platelet Count 159 150 - 450 10e3/uL Magnesium Result Value Ref Range Magnesium 1.9 1.7 - 2.3 mg/dL * John Ocampo RD - 02/27/2024 12:16 PM CDT CLINICAL NUTRITION SERVICES - REASSESSMENT NOTE RECOMMENDATIONS FOR MD/PROVIDER TO ORDER: can consider an appetite stimulant, if appropriate Recommendations Ordered by Registered Dietitian (RD): strawberry Ensure TID breakfast, lunch and HS snack and chocolate Magic Cups BID w/ lunch and dinner Malnutrition: 6/7 % Weight Loss: Weight loss does not meet criteria for malnutrition - 5.6% wt loss in 6 months and 8% wt loss in 8 months do not meet criteria % Intake: </= 75% for >/= 1 month (severe malnutrition) Subcutaneous Fat Loss: None observed Muscle Loss: Clavicle bone region mild depletion, Upper arm region mild depletion, and Dorsal hand region mild depletion - difficult to assess vs sarcopenia Fluid Retention: None noted Malnutrition Diagnosis: Moderate malnutrition In Context of: Acute illness or injury Chronic illness or disease EVALUATION OF PROGRESS TOWARD GOALS Diet: Regular, ensure between meals, Gel+ w/ lunch Intake/Tolerance: Pt endorsed the poor appetite and intakes. She was being sent chocolate Glucerna rather than Ensure d/t supply issues. Ensure would be better and she was ok with getting strawberry Ensure TID breakfast, lunch and HS snack and chocolate Magic Cups BID w/ lunch and dinner - Flowsheets show a poor appetite 25-50 and x1-3 intakes/day of 25-50%, for the most part. - RN notes show pt w/ poor appetite and drinking is going better then eating. ASSESSED NUTRITION NEEDS: Dosing Weight 61.1 kg (adjusted) Estimated Energy Needs: 8139-0824 kcals (25-30 Kcal/Kg) Justification: maintenance Estimated Protein Needs: 73-92 grams protein (1.2-1.5 g pro/Kg) Justification: preservation of lean body mass Estimated Fluid Needs: 2326-9906 mL (1 mL/Kcal) NEW FINDINGS: General/Plan: pt was to discharge but held d/t high calcium Weight: 02/27/24 0550 77.6 kg (171 lb 1.2 oz) Bed scale 02/26/24 0616 77.6 kg (171 lb 1.2 oz) Bed scale 02/25/24 0623 79.2 kg (174 lb 9.7 oz) Bed scale 02/24/24 0631 78.5 kg (173 lb) Standing scale 02/23/24 0708 77.4 kg (170 lb 11.2 oz) Standing scale GI: no BM recorded so far Skin: trace Edema Meds: reviewed Labs: reviewed Previous Goals: PO intake - >75% of meal trays, or the equivalent in supplements, TID Evaluation: Not met Previous Nutrition Diagnosis: Inadequate oral intake related to poor appetite as evidenced by pt report nothing tastes good, <75% po intake for >1 month, mild muscle losses and need for oral nutrition supplements to help pt meet needs Evaluation: No change CURRENT NUTRITION DIAGNOSIS Inadequate oral intake related to poor appetite as evidenced by pt report nothing tastes good, <75% po intake for >1 month, mild muscle losses and need for oral nutrition supplements to help pt meet needs INTERVENTIONS Recommendations / Nutrition Prescription strawberry Ensure TID breakfast, lunch and HS snack and chocolate Magic Cups BID w/ lunch and dinner Implementation Medical food supplement therapy Goals PO - >75% of meal trays and/or supplements TID MONITORING AND EVALUATION: Progress towards goals will be monitored and evaluated per protocol and Practice Guideline John Ocampo RD, LD * Angelita Gr LSW - 02/27/2024 10:37 AM CDT Care Management Discharge Note Discharge Date: 02/27/2024 Discharge Disposition: [facility] Discharge Services: None Discharge DME: Walker Discharge Transportation: Son Private pay costs discussed: Not applicable Does the patient's insurance plan have a 3 day qualifying hospital stay waiver? No PAS Confirmation Code: Patient/family educated on Medicare website which has current facility and service quality ratings:yes Education Provided on the Discharge Plan: Yes Persons Notified of Discharge Plans: Patient and Son Patient/Family in Agreement with the Plan: yes Handoff Referral Completed: Yes Additional Information: Patient will be discharging today to [facility]. Address Change Clerk spoke with CHRISTEN Andrews at the facility and orders will need to be faxed to [phone]. Patient will need to have Home PT/OT Orders so therapy can assess in the enhanced unit. They use [facility] [place] for any medications that need to be filled for patient. Address Change Clerk paged MD for orders as son is here and would be able to transport when available. Family in agreement with the plan for discharge. Addendum 1050: Address Change Clerk talked with and they are not able to discharge today due to Calcium Levels going up. will round later today to update patient. Address Change Clerk updated Bedside RN. BRITTANY Telles * Wu Spencer DO - 02/26/2024 3:32 PM CDT [place] [facility] Progress Note Assessment and Plan: Primary Oncologist: Shereen Belle Follicular lymphoma - Stage IV, grade 1-2 - Symptoms: Weight loss, night sweats, early satiety - Started Bendamustine Rituximab 02/19/24, did not receive Bendamustine day 2 due to severe hypercalcemia which prompted hospital admission - Uric acid elevated at outside hospital, [facility] and received 6mg Rasbirucase - She received Neulasta growth factor support 2. TLS - Increased creatinine - IVF and s/p rasburicase - uric acid down to 0.4mg/dl on 02/24/2024 after Rasburicase dose 3. Severe hypercalcemia - Received Zometa 02/20/24 - Most likely contributing to her malaise - Calcium level on 02/24/2024 down to 12.6mg/dl - IVF stopped due to worsening SOB - Repeat calcium level on 02/26 - could consider Zometa if needed 4. Upper abdominal pain Dr. Velarde suspects this is related to malignancy; diffuse adenopathy in the abdomen with omental carcinomatosis, peritoneal nodularity with thickening and mild ascites PLAN - Continue supportive measures - Can give additional dose Zometa 1 week after initial if severe hypercalcemia persists - I had a discussion with the patient -> her type of lymphoma is very sensitive to treatment andanticipate high likelihood of improvement in her lymphoma with continued treatments. She appears sheila more open to pursue treatments. She is aware though that treatments do come at the cost of toxicities. - Patient is much more willing to pursue further palliative treatment on 02/25 - I will arrange for her outpatient meeting with Dr. Velarde to be postponed (scheduled for Monday) - Continue allopurinol - renal function improving. Uric acid has normalized. Calcium level 13.2 02/25, recheck 02/26 and possible additional dose of Zometa Will continue to follow her with you Wu Spencer, [place] [facility] [phone] (office) Interval History: Has less fatigue than Monday. Review of Systems: As per subjective, otherwise 5 systems reviewed and negative. Physical Exam: Blood pressure (!) 169/69, pulse 66, temperature 97.9 ??F (36.6 ??C), temperature source Oral, resp. rate 18, height 1.626 m (5' 4), weight 77.6 kg (171 lb 1.2 oz), SpO2 96%. Vital Sign Ranges Temperature Temp Av.2 ??F (36.8 ??C) Min: 98.1 ??F (36.7 ??C) Max: 98.4 ??F (36.9 ??C) Blood pressure Systolic (24hrs), Av , Min:146 , Max:161 Diastolic (24hrs), Av, Min:56, Max:92 Pulse Pulse Av.5 Min: 63 Max: 70 Respirations Resp Av Min: 18 Max: 18 Pulse oximetry SpO2 Av % Min: 91 % Max: 93 % Intake/Output Summary (Last 24 hours) at 02/24/2024 1125 Last data filed at 02/24/2024 1123 Gross per 24 hour Intake 240 ml Output 1050 ml Net -810 ml Constitutional: No acute distress. Skin: No rashes, petechiae, or ecchymoses. HEENT: Mild conjunctival pallor without scleral icterus Neck: Supple. Lungs: Clear to auscultation bilaterally. Cardiovascular: Regular rate and rhythm with no murmurs, rubs, or gallops. Abdomen: Soft, nontender, nondistended with no palpable hepatosplenomegaly. Extremities: No leg edema. Neurological: Moving all 4 extremities Medications: No current outpatient medications on file. Data: Results for orders placed or performed during the hospital encounter of 02/22/24 (from the past 24 hour(s)) Magnesium Result Value Ref Range Magnesium 1.9 1.7 - 2.3 mg/dL Potassium Result Value Ref Range Potassium 3.3 (L) 3.4 - 5.3 mmol/L Potassium Result Value Ref Range Potassium 4.1 3.4 - 5.3 mmol/L Basic metabolic panel Result Value Ref Range Sodium 138 135 - 145 mmol/L Potassium 4.1 3.4 - 5.3 mmol/L Chloride 100 98 - 107 mmol/L Carbon Dioxide (CO2) 28 22 - 29 mmol/L Anion Gap 10 7 - 15 mmol/L Urea Nitrogen 24.3 (H) 8.0 - 23.0 mg/dL Creatinine 1.50 (H) 0.51 - 0.95 mg/dL GFR Estimate 34 (L) >60 mL/min/1.73m2 Calcium 13.2 (H) 8.8 - 10.2 mg/dL Glucose 156 (H) 70 - 99 mg/dL CBC with platelets Result Value Ref Range WBC Count 21.2 (H) 4.0 - 11.0 10e3/uL RBC Count 3.32 (L) 3.80 - 5.20 10e6/uL Hemoglobin 9.7 (L) 11.7 - 15.7 g/dL Hematocrit 29.8 (L) 35.0 - 47.0 % MCV 90 78 - 100 fL MCH 29.2 26.5 - 33.0 pg MCHC 32.6 31.5 - 36.5 g/dL RDW 13.9 10.0 - 15.0 % Platelet Count 170 150 - 450 10e3/uL Phosphorus Result Value Ref Range Phosphorus 3.5 2.5 - 4.5 mg/dL Lactate Dehydrogenase Result Value Ref Range Lactate Dehydrogenase 207 0 - 250 U/L Magnesium Result Value Ref Range Magnesium 1.9 1.7 - 2.3 mg/dL Uric acid, Rasburicase Result Value Ref Range Uric Acid, Rasburicase 1.8 (L) 2.4 - 5.7 mg/dL XR Abdomen 1 View Narrative ABDOMEN ONE VIEW 02/26/2024 1:48 PM HISTORY: Assess for obstipation. COMPARISON: 01/03/2024 Impression IMPRESSION: There are a few air-fluid levels in nondilated colon. Moderate to large amount of stool throughout the colon likely indicates a degree of constipation. No obstruction or free intraperitoneal air. * Angelita Gr LSW - 02/26/2024 11:43 AM CDT Care Management Follow Up Length of Stay (days): 4 Expected Discharge Date: 02/28/2024 Concerns to be Addressed: discharge planning Patient plan of care discussed at interdisciplinary rounds: Yes Anticipated Discharge Disposition: Home Care, Transitional Care Anticipated Discharge Services: None Anticipated Discharge DME: [facility] Patient/family educated on Medicare website which has current facility and service quality ratings:yes Education Provided on the Discharge Plan: Yes Patient/Family in Agreement with the Plan: yes Referrals Placed by CM/SW: Post Acute Facilities, Homecare Private pay costs discussed: Not applicable Additional Information: Address Change Clerk received information that the family would like [facility] for placement. Address Change Clerk researched this and this is [facility], film writer called and left a message with admissions to see if they would have any option to do a short termstay for TCU in their enhanced care unit area. Waiting on a call back. Addendum 1400: Address Change Clerk received a call back from Ly at [facility]. Ly states that they do not have a TCU that is under Medicare. They have an enhanced care which people can enter for a short term stay, that is private pay and daily rate is $350-$450 a day. Addendum 1500: Address Change Clerk spoke with patients son James. James states that they are needing a short term place where patient can still receive chemotherapy. James states that money is not an issue and they would like to get her placed at [facility]. James states he has been in touch with Zaynab over there and is ready whenever they can get patient in. Address Change Clerk called and spoke with Zaynab( [phone]) that they would need a housing application filled out and an RN to RN phone visit done to make sure they can meet her needs. Zaynab will be in touch with James on doing the application for housing and then get back to on next steps. BRITTANY Telles * Margarita Ruiz MD - 02/26/2024 10:19 AM CDT [facility] Medicine Progress Note - Hospitalist Service Date of Admission: 02/22/2024 Assessment & Plan Dipika Franco is a 83 year old female admitted on 02/22/2024. She presents as a transfer from [facility] in the setting of tumor lysis syndrome after her first cycle of chemotherapy for mantle cell lymphoma. Rasburicase not available at outside hospital, and patient with renal insufficiency. 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 Recently underwent her first cycle of Rituxan and bendeka 02/18 and 02/19. Also treated with Neulasta 02/19. LDH 347 Elevated uric acid: 9.6 02/22/2024. Hypercalcemia: 12.1 02/22/2024. Received zoledronic acid 02/20/2024. Note that she had bradycardia in the 40s at outside hospital, but this has improved to a heart rate in the 60s at this time. Anemia: Likely secondary to chemotherapy. She did receive 1 unit of packed red blood cells for hemoglobin of 7.7 02/21/2024 at outside facility. Repeat hemoglobin increased to 10. 6 mg rasburicase x 1 ordered recheck uric acid 4AM (4h after rasburicase dosing) per protocol. Check uric acid daily. See note from Pharm.D., uric acid now low, consider adjusting allopurinol order. Allopurinol put on hold Follow labs closely, including phosphorus, BMP, ionized calcium, LDH Cardiac telemetry [place] [facility] consulted, aware of patient from outside hospital 1L NS bolus and Normal saline at 125/h; follow intake and output. 02/23: RN paged indicating that patient's peripheral IV infiltrated and, her arm is puffy. She is also reporting a new wheezy cough, swollen ankles, and her lungs sound wheezy. Reduce IV fluid rate, give Lasix 20 mg IV x 1 If hypercalcemia persists, can redose zoledronic acid 02/27/2024. Does not meet severity criteria for calcitonin, but monitor for worsening. See comments from Dr. Miranda, I had a discussion with the patient -> her type of lymphoma is very sensitive to treatment and anticipate high likelihood of improvement in her lymphoma with continued treatments. She appears to be more open to pursue treatments. She is aware though that treatments do come at the cost of toxicities. I will arrange for her outpatient meeting with Dr. Velarde to be postponed (scheduled for Monday). On-call MD was paged 02/24 at 0300 regarding wheezing, dyspnea. Two-view chest x- ray showed small bilateral pleural effusions with associated passive atelectasis, normal heart size and pulmonary vascularity. I appreciate Dr. Whitehead's care. He held IV fluids and ordered additional Lasix 40 mg IV x 1 See UptoDate, There are no guidelines that address the optimal duration of hydration...... IV hydration should be continued at least until tumor burden is largely resolved, there is no evidence of significant tumor lysis (as indicated by serum uric acid and phosphorus level), and patient can drinkadequately with good urine output. 02/24: Creatinine is slightly higher today. Uric acid is below normal,, LDH is just above the upper limit of normal. Okay to remain off IV fluids for now, recheck labs in a.m. 02/25: Creatinine is stable. Uric acid has increased, but is still below the lower limit of normal. LDH and phosphorus are both within normal limits. Okay to remain off IV fluids. Goals of care plannin minutes in discussion regarding goals of care. She confirms a DNR/DNI DNR/DNI requested care management consult Severe protein calorie malnutrition in the setting of active malignancy. Over 60 pound weight loss this past year Generalized weakness and physical deconditioning Regular diet as tolerated Nutritional supplements between meals Physical therapy consulted Up with assist, fall precautions Acute kidney injury: Creatinine 1.5 as of 02/22/2024. As high as 2.1 this past week through outside records. [place] potentially secondary to both tumor lysis, dehydration, and IV contrast for recent CT. Rasburicase treatment as above with reduced dose allopurinol for hyperuricemia. Intake and output Follow labs IV saline 1 L bolus with 125 mL/h thereafter; adjust pending urine output Patient wheezing 02/23: decrease IVF to 50 ml/hr 02/24: See discussion above, creatinine is slightly higher today, likely in part due to receiving diuretics x 2 doses Hypokalemia Hypomagnesemia Constipation: Chronic ongoing issue, likely related to peritoneal carcinomatosis, potentially further exacerbated by new hypercalcemia. Reports he has not had a bowel movement in 5 days Scheduled senna and MiraLAX, increased doses Checked abdominal x-ray, it shows, Moderate to large amount of stool throughout the colon likely indicates a degree of constipation. Try suppository and/or enema Additional as needed bowel regimen available Diet: Combination Diet Regular Diet Adult Snacks/Supplements Adult: Ensure Enlive; Between Meals Snacks/Supplements Adult: Gelatein Plus; With Meals DVT Prophylaxis: Enoxaparin (Lovenox) SQ [place] Catheter: Not present Lines: None Cardiac Monitoring: None Code Status: No CPR- Do NOT Intubate Clinically Significant Risk Factors # Hypokalemia: Lowest K = 3 mmol/L in last 2 days, will replace as needed # Hypercalcemia: Highest Ca = 13.2 mg/dL in last 2 days, will monitor as appropriate # Hypomagnesemia: Lowest Mg = 1.5 mg/dL in last 2 days, will replace as needed # Hypoalbuminemia: Lowest albumin = 3 g/dL at 02/23/2024 4:36 AM, will monitor as appropriate Disposition Plan Medically Ready for Discharge: Anticipated in 2-4 Days Margarita Ruiz MD Hospitalist Service [facility] Securely message with [employer] (more info) Text page via [facility] Paging/Directory Interval History I am starting to get caught up. Dipika says she feels slightly more rested. She still has not had a bowel movement, says that it is not unusual for her to go 6 or 7 days without having a BM, I have been constipated my whole life. She says that often when she ultimately has a bowel movement, she passes hard stool and it is uncomfortable. She has no new respiratory complaints, does have a cough that she says is chronic. Physical Exam Vital Signs: Temp: 97.3 ??F (36.3 ??C) Temp src: Oral BP: (!) 167/71 Pulse: 59 Resp: 18 SpO2: 93 % O2 Device: None (Room air) Weight: 171 lbs 1.23 oz Constitutional: Awake, alert, cooperative, no apparent distress Respiratory: Clear to auscultation bilaterally, no crackles or wheezing Cardiovascular: regular rate and rhythm GI: Normal bowel sounds, soft, non-distended, non-tender Skin/Integumen: No rash on exposed skin. No lower extremity edema Other: Mood is pleasant Medical Decision Making 35 MINUTES SPENT BY ME on the date of service doing chart review, history, exam, documentation & further activities per the note. Including discussion with patient, bedside RN, patient's son, Bill and social work Data I have personally reviewed the following data over the past 24 hrs: 21.2 (H) \ 9.7 (L) / 170 138 100 24.3 (H) / 156 (H) 4.1; 4.1 28 1.50 (H) \ Ferritin: N/A % Retic: N/A LDH: 207 Imaging results reviewed over the past 24 hrs: No results found for this or any previous visit (from the past 24 hour(s)). * Grant Miranda MD - 02/25/2024 10:12 AM CDT [place] [facility] Progress Note Assessment and Plan: Primary Oncologist: Shereen Belle Follicular lymphoma - Stage IV, grade 1-2 - Symptoms: Weight loss, night sweats, early satiety - Started Bendamustine Rituximab 02/19/24, did not receive Bendamustine day 2 due to severe hypercalcemia which prompted hospital admission - Uric acid elevated at outside hospital, [facility] and received 6mg Rasbirucase - She received Neulasta growth factor support 2. TLS - Increased creatinine - IVF and s/p rasburicase - uric acid down to 0.4mg/dl on 02/24/2024 after Rasburicase dose 3. Severe hypercalcemia - Received Zometa 02/20/24 - Most likely contributing to her malaise - Calcium level on 02/24/2024 down to 12.6mg/dl - IVF stopped due to worsening SOB - Repeat calcium level on 02/26 - could consider Zometa if needed 4. Upper abdominal pain Dr. Velarde suspects this is related to malignancy; diffuse adenopathy in the abdomen with omental carcinomatosis, peritoneal nodularity with thickening and mild ascites PLAN - Continue supportive measures - Can give additional dose Zometa 1 week after initial if severe hypercalcemia persists - I had a discussion with the patient -> her type of lymphoma is very sensitive to treatment andanticipate high likelihood of improvement in her lymphoma with continued treatments. She appears sheila more open to pursue treatments. She is aware though that treatments do come at the cost of toxicities. - I will arrange for her outpatient meeting with Dr. Velarde to be postponed (scheduled for Monday) - She may wish to go to a care home instead of home - Continue allopurinol - renal function improving. Uric acid has normalized. Calcium level 12.6mg/dl 02/24/2024. Will continue to follow her with you Grant Miranda MD [place] [facility] [phone] (office) Interval History: Has had some worsening SOB. IVF have been discontinued. DEnied fevers. Review of Systems: As per subjective, otherwise 5 systems reviewed and negative. Physical Exam: Blood pressure (!) 170/62, pulse 69, temperature 97.9 ??F (36.6 ??C), temperature source Oral, resp. rate 20, weight 79.2 kg (174 lb 9.7 oz), SpO2 95%. Vital Sign Ranges Temperature Temp Av.2 ??F (36.8 ??C) Min: 98.1 ??F (36.7 ??C) Max: 98.4 ??F (36.9 ??C) Blood pressure Systolic (24hrs), Av , Min:146 , Max:161 Diastolic (24hrs), Av, Min:56, Max:92 Pulse Pulse Av.5 Min: 63 Max: 70 Respirations Resp Av Min: 18 Max: 18 Pulse oximetry SpO2 Av % Min: 91 % Max: 93 % Intake/Output Summary (Last 24 hours) at 02/24/2024 1125 Last data filed at 02/24/2024 1123 Gross per 24 hour Intake 240 ml Output 1050 ml Net -810 ml Constitutional: No acute distress. Skin: No rashes, petechiae, or ecchymoses. HEENT: Mild conjunctival pallor without scleral icterus Neck: Supple. Lungs: Clear to auscultation bilaterally. Cardiovascular: Regular rate and rhythm with no murmurs, rubs, or gallops. Abdomen: Soft, nontender, nondistended with no palpable hepatosplenomegaly. Extremities: No leg edema. Neurological: Moving all 4 extremities Medications: No current outpatient medications on file. Data: Results for orders placed or performed during the hospital encounter of 02/22/24 (from the past 24 hour(s)) XR Chest 2 Views Narrative EXAM: XR CHEST 2 VIEWS LOCATION: [facility] DATE: 02/25/2024 INDICATION: Shortness of breath. Hypercalcemia with fluid, but also got Rasburicase recently. COMPARISON: CT chest, abdomen and pelvis with IV contrast 01/03/2024. Impression IMPRESSION: Small bilateral pleural effusions have developed with associated passive atelectasis inthe adjacent lungs. Normal cardiac size and pulmonary vascularity. No suspicious adenopathy. Atherosclerotic thoracic aorta. Postoperative changes cervical spine with anterior plate and screw fixation. Long segment thoracolumbar spinal hardware, partially visualized, unchanged. * Margarita Ruiz MD - 02/25/2024 9:47 AM CDT [facility] Medicine Progress Note - Hospitalist Service Date of Admission: 02/22/2024 Assessment & Plan Dipika Franco is a 83 year old female admitted on 02/22/2024. She presents as a transfer from [facility] in the setting of tumor lysis syndrome after her first cycle of chemotherapy for mantle cell lymphoma. Rasburicase not available at outside hospital, and patient with renal insufficiency. 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 Recently underwent her first cycle of Rituxan and bendeka 02/18 and 02/19. Also treated with Neulasta 02/19. LDH 347 Elevated uric acid: 9.6 02/22/2024. Hypercalcemia: 12.1 02/22/2024. Received zoledronic acid 02/20/2024. Note that she had bradycardia in the 40s at outside hospital, but this has improved to a heart rate in the 60s at this time. Anemia: Likely secondary to chemotherapy. She did receive 1 unit of packed red blood cells for hemoglobin of 7.7 02/21/2024 at outside facility. Repeat hemoglobin increased to 10. 6 mg rasburicase x 1 ordered recheck uric acid 4AM (4h after rasburicase dosing) per protocol. Check uric acid daily. See note from Pharm.D., uric acid now low, consider adjusting allopurinol order. Allopurinol put on hold Follow labs closely, including phosphorus, BMP, ionized calcium, LDH Cardiac telemetry [place] [facility] consulted, aware of patient from outside hospital 1L NS bolus and Normal saline at 125/h; follow intake and output. 02/23: RN paged indicating that patient's peripheral IV infiltrated and, her arm is puffy. She is also reporting a new wheezy cough, swollen ankles, and her lungs sound wheezy. Reduce IV fluid rate, give Lasix 20 mg IV x 1 If hypercalcemia persists, can redose zoledronic acid 02/27/2024. Does not meet severity criteria for calcitonin, but monitor for worsening. See comments from Dr. Miranda, I had a discussion with the patient -> her type of lymphoma is very sensitive to treatment and anticipate high likelihood of improvement in her lymphoma with continued treatments. She appears to be more open to pursue treatments. She is aware though that treatments do come at the cost of toxicities. I will arrange for her outpatient meeting with Dr. Velarde to be postponed (scheduled for Monday). On-call MD was paged 02/24 at 0300 regarding wheezing, dyspnea. Two-view chest x- ray showed small bilateral pleural effusions with associated passive atelectasis, normal heart size and pulmonary vascularity. I appreciate Dr. Whitehead's care. He held IV fluids and ordered additional Lasix 40 mg IV x 1 See UptoDate, There are no guidelines that address the optimal duration of hydration...... IV hydration should be continued at least until tumor burden is largely resolved, there is no evidence of significant tumor lysis (as indicated by serum uric acid and phosphorus level), and patient can drinkadequately with good urine output. 02/24: Creatinine is slightly higher today. Uric acid is below normal,, LDH is just above the upper limit of normal. Okay to remain off IV fluids for now, recheck labs in a.m. Goals of care plannin minutes in discussion regarding goals of care. She confirms a DNR/DNI DNR/DNI requested care management consult Severe protein calorie malnutrition in the setting of active malignancy. Over 60 pound weight loss this past year Generalized weakness and physical deconditioning Regular diet as tolerated Nutritional supplements between meals Physical therapy consulted Up with assist, fall precautions Acute kidney injury: Creatinine 1.5 as of 02/22/2024. As high as 2.1 this past week through outside records. [place] potentially secondary to both tumor lysis, dehydration, and IV contrast for recent CT. Rasburicase treatment as above with reduced dose allopurinol for hyperuricemia. Intake and output Follow labs IV saline 1 L bolus with 125 mL/h thereafter; adjust pending urine output Patient wheezing 02/23: decrease IVF to 50 ml/hr 02/24: See discussion above, creatinine is slightly higher today, likely in part due to receiving diuretics x 2 doses Hypokalemia Hypomagnesemia Constipation: Chronic ongoing issue, likely related to peritoneal carcinomatosis, potentially further exacerbated by new hypercalcemia. Reports he has not had a bowel movement in 5 days Scheduled senna and MiraLAX, increase doses Additional as needed bowel regimen available Diet: Combination Diet Regular Diet Adult Snacks/Supplements Adult: Ensure Enlive; Between Meals Snacks/Supplements Adult: Gelatein Plus; With Meals DVT Prophylaxis: Enoxaparin (Lovenox) SQ [place] Catheter: Not present Lines: None Cardiac Monitoring: None Code Status: No CPR- Do NOT Intubate Clinically Significant Risk Factors # Hypercalcemia: Highest Ca = 12.6 mg/dL in last 2 days, will monitor as appropriate # Hypomagnesemia: Lowest Mg = 1.3 mg/dL in last 2 days, will replace as needed # Hypoalbuminemia: Lowest albumin = 3 g/dL at 02/23/2024 4:36 AM, will monitor as appropriate Disposition Plan Medically Ready for Discharge: Anticipated in 2-4 Days Margarita Ruiz MD Hospitalist Service [facility] Securely message with [employer] (more info) Text page via [employer] Paging/Directory Interval History I am worn out. Patient says she feels exhausted. She acknowledges she felt short of breath duringthe night, says her breathing is okay now. She is still constipated. Physical Exam Vital Signs: Temp: 97.9 ??F (36.6 ??C) Temp src: Oral BP: (!) 170/62 Pulse: 69 Resp: 20 SpO2: 95 % O2 Device: None (Room air) Weight: 174 lbs 9.67 oz Constitutional: Awake, alert, cooperative, no apparent distress Respiratory: Clear to auscultation bilaterally, no crackles or wheezing Cardiovascular: regular rate and rhythm GI: Normal bowel sounds, soft, non-distended, non-tender Skin/Integumen: No rash on exposed skin. No lower extremity edema Other: Mood is pleasant Medical Decision Making 35 MINUTES SPENT BY ME on the date of service doing chart review, history, exam, documentation & further activities per the note. Data Imaging results reviewed over the past 24 hrs: Recent Results (from the past 24 hour(s)) XR Chest 2 Views Narrative EXAM: XR CHEST 2 VIEWS LOCATION: [facility] DATE: 02/25/2024 INDICATION: Shortness of breath. Hypercalcemia with fluid, but also got Rasburicase recently. COMPARISON: CT chest, abdomen and pelvis with IV contrast 01/03/2024. Impression IMPRESSION: Small bilateral pleural effusions have developed with associated passive atelectasis inthe adjacent lungs. Normal cardiac size and pulmonary vascularity. No suspicious adenopathy. Atherosclerotic thoracic aorta. Postoperative changes cervical spine with anterior plate and screw fixation. Long segment thoracolumbar spinal hardware, partially visualized, unchanged. * Grant Miranda MD - 02/24/2024 11:25 AM CDT [place] [facility] Progress Note Assessment and Plan: Primary Oncologist: Dr. Velarde [place] Follicular lymphoma - Stage IV, grade 1-2 - Symptoms: Weight loss, night sweats, early satiety - Started Bendamustine Rituximab 02/19/24, did not receive Bendamustine day 2 due to severe hypercalcemia which prompted hospital admission - Uric acid elevated at outside hospital, transferred [facility] and received 6mg Rasbirucase - She received Neulasta growth factor support 2. TLS - Increased creatinine - IVF and s/p rasburicase - uric acid down to 0.4mg/dl on 02/24/2024 after Rasburicase dose 3. Severe hypercalcemia - Received Zometa 02/20/24 - Most likely contributing to her malaise 4. Upper abdominal pain Dr. Velarde suspects this is related to malignancy; diffuse adenopathy in the abdomen with omental carcinomatosis, peritoneal nodularity with thickening and mild ascites PLAN - Continue supportive measures, IVF - Can give additional dose Zometa 1 week after initial if severe hypercalcemia persists - I had a discussion with the patient -> her type of lymphoma is very sensitive to treatment andanticipate high likelihood of improvement in her lymphoma with continued treatments. She appears sheila more open to pursue treatments. She is aware though that treatments do come at the cost of toxicities. - I will arrange for her outpatient meeting with Dr. Velarde to be postponed (scheduled for Monday) - She may wish to go to a care home instead of home - Continue allopurinol - renal function improving. Uric acid has normalized. Calcium level 12.6mg/dl today. Continue IVF. Will continue to follow her with you Grant Miranda MD [facility] [phone] (office) Interval History: Denied new complaints. Reported has not had a bowel movement for about a week. Tells me this is normal for her. Stools tend to be hard per her report. Trying to best to drink/eat. Denied fevers Review of Systems: As per subjective, otherwise 5 systems reviewed and negative. Physical Exam: Blood pressure (!) 158/61, pulse 69, temperature 98.4 ??F (36.9 ??C), temperature source Oral, resp. rate 18, weight 78.5 kg (173 lb), SpO2 91%. Vital Sign Ranges Temperature Temp Av.2 ??F (36.8 ??C) Min: 98.1 ??F (36.7 ??C) Max: 98.4 ??F (36.9 ??C) Blood pressure Systolic (24hrs), Av , Min:146 , Max:161 Diastolic (24hrs), Av, Min:56, Max:92 Pulse Pulse Av.5 Min: 63 Max: 70 Respirations Resp Av Min: 18 Max: 18 Pulse oximetry SpO2 Av % Min: 91 % Max: 93 % Intake/Output Summary (Last 24 hours) at 02/24/2024 1125 Last data filed at 02/24/2024 1123 Gross per 24 hour Intake 240 ml Output 1050 ml Net -810 ml Constitutional: No acute distress. Skin: No rashes, petechiae, or ecchymoses. HEENT: Mild conjunctival pallor without scleral icterus Neck: Supple. Lungs: Clear to auscultation bilaterally. Cardiovascular: Regular rate and rhythm with no murmurs, rubs, or gallops. Abdomen: Soft, nontender, nondistended with no palpable hepatosplenomegaly. Extremities: No leg edema. Neurological: Moving all 4 extremities Medications: No current outpatient medications on file. Data: Results for orders placed or performed during the hospital encounter of 02/22/24 (from the past 24 hour(s)) Magnesium Result Value Ref Range Magnesium 1.3 (L) 1.7 - 2.3 mg/dL Potassium Result Value Ref Range Potassium 3.8 3.4 - 5.3 mmol/L Magnesium Result Value Ref Range Magnesium 1.8 1.7 - 2.3 mg/dL Basic metabolic panel Result Value Ref Range Sodium 138 135 - 145 mmol/L Potassium 3.6 3.4 - 5.3 mmol/L Chloride 103 98 - 107 mmol/L Carbon Dioxide (CO2) 24 22 - 29 mmol/L Anion Gap 11 7 - 15 mmol/L Urea Nitrogen 25.5 (H) 8.0 - 23.0 mg/dL Creatinine 1.38 (H) 0.51 - 0.95 mg/dL GFR Estimate 38 (L) >60 mL/min/1.73m2 Calcium 12.6 (H) 8.8 - 10.2 mg/dL Glucose 121 (H) 70 - 99 mg/dL CBC with platelets Result Value Ref Range WBC Count 33.0 (H) 4.0 - 11.0 10e3/uL RBC Count 3.19 (L) 3.80 - 5.20 10e6/uL Hemoglobin 9.3 (L) 11.7 - 15.7 g/dL Hematocrit 28.7 (L) 35.0 - 47.0 % MCV 90 78 - 100 fL MCH 29.2 26.5 - 33.0 pg MCHC 32.4 31.5 - 36.5 g/dL RDW 13.7 10.0 - 15.0 % Platelet Count 173 150 - 450 10e3/uL Magnesium Result Value Ref Range Magnesium 1.7 1.7 - 2.3 mg/dL Uric acid, Rasburicase Result Value Ref Range Uric Acid, Rasburicase 0.4 (L) 2.4 - 5.7 mg/dL * Margarita Ruiz MD - 02/24/2024 9:02 AM CDT [facility] Medicine Progress Note - Hospitalist Service Date of Admission: 02/22/2024 Assessment & Plan Dipika Franco is a 83 year old female admitted on 02/22/2024. She presents as a transfer from [facility] in the setting of tumor lysis syndrome after her first cycle of chemotherapy for mantle cell lymphoma. Rasburicase not available at outside hospital, and patient with renal insufficiency. 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 Recently underwent her first cycle of Rituxan and bendeka 02/18 and 02/19. Also treated with Neulasta 02/19. LDH 347 Elevated uric acid: 9.6 02/22/2024. Hypercalcemia: 12.1 02/22/2024. Received zoledronic acid 02/20/2024. Note that she had bradycardia in the 40s at outside hospital, but this has improved to a heart rate in the 60s at this time. Anemia: Likely secondary to chemotherapy. She did receive 1 unit of packed red blood cells for hemoglobin of 7.7 02/21/2024 at outside facility. Repeat hemoglobin increased to 10. 6 mg rasburicase x 1 ordered recheck uric acid 4AM (4h after rasburicase dosing) per protocol. Check uric acid daily. See note from Pharm.D., uric acid now low, consider adjusting allopurinol order. Allopurinol put on hold Follow labs closely, including phosphorus, BMP, ionized calcium, LDH Cardiac telemetry [place] [facility] consulted, aware of patient from outside hospital 1L NS bolus and Normal saline at 125/h; follow intake and output. 02/23: RN paged indicating that patient's peripheral IV infiltrated and, her arm is puffy. She is also reporting a new wheezy cough, swollen ankles, and her lungs sound wheezy. Reduce IV fluid rate, give Lasix 20 mg IV x 1 If hypercalcemia persists, can redose zoledronic acid 02/27/2024. Does not meet severity criteria for calcitonin, but monitor for worsening. See comments from Dr. Miranda, I had a discussion with the patient -> her type of lymphoma is very sensitive to treatment and anticipate high likelihood of improvement in her lymphoma with continued treatments. She appears to be more open to pursue treatments. She is aware though that treatments do come at the cost of toxicities. I will arrange for her outpatient meeting with Dr. Velarde to be postponed (scheduled for Monday). Goals of care plannin minutes in discussion regarding goals of care. She confirms a DNR/DNI status DNR/DNI requested care management consultation to assist with connecting patient to a hospice agency available in her hometown of [place]. She is interested and would benefit from an informational meetingon hospice, preferably with family present. Severe protein calorie malnutrition in the setting of active malignancy. Over 60 pound weight loss this past year Generalized weakness and physical deconditioning Regular diet as tolerated Nutritional supplements between meals Physical therapy consulted Up with assist, fall precautions Acute kidney injury: Creatinine 1.5 as of 02/22/2024. As high as 2.1 this past week through outside records. [place] potentially secondary to both tumor lysis, dehydration, and IV contrast for recent CT. Rasburicase treatment as above with reduced dose allopurinol for hyperuricemia. Intake and output Follow labs IV saline 1 L bolus with 125 mL/h thereafter; adjust pending urine output 02/23: decrease IVF to 100 ml/hr Constipation: Chronic ongoing issue, likely related to peritoneal carcinomatosis, potentially further exacerbated by new hypercalcemia. Reports he has not had a bowel movement in 5 days Scheduled senna and MiraLAX Additional as needed bowel regimen available Diet: Combination Diet Regular Diet Adult Snacks/Supplements Adult: Ensure Enlive; Between Meals Snacks/Supplements Adult: Gelatein Plus; With Meals Room Service DVT Prophylaxis: Enoxaparin (Lovenox) SQ [place] Catheter: Not present Lines: None Cardiac Monitoring: ACTIVE order. Indication: Electrolyte Imbalance (24 hours)- Magnesium <1.3 mg/ml; Potassium < =2.8 or > 5.5 mg/ml Code Status: No CPR- Do NOT Intubate Clinically Significant Risk Factors # Hypercalcemia: Highest Ca = 12.7 mg/dL in last 2 days, will monitor as appropriate # Hypomagnesemia: Lowest Mg = 1.3 mg/dL in last 2 days, will replace as needed # Hypoalbuminemia: Lowest albumin = 3 g/dL at 02/23/2024 4:36 AM, will monitor as appropriate Disposition Plan Medically Ready for Discharge: Anticipated in 2-4 Days Margarita Ruiz MD Hospitalist Service [facility] Securely message with Nest[employer] (more info) Text page via [facility] Paging/Directory Interval History I am constipated. I been this way my whole life. Patient says she has not had a bowel movement in6 days, but this is not unusual for her. She says she feels a bit more rested, I am getting caughtup. She is worried about finding a home for her dog, Fadi. Physical Exam Vital Signs: Temp: 98.4 ??F (36.9 ??C) Temp src: Oral BP: (!) 158/61 Pulse: 69 Resp: 18 SpO2: 91 % O2 Device: None (Room air) Weight: 173 lbs 0 oz Constitutional: Awake, alert, cooperative, no apparent distress Respiratory: Clear to auscultation bilaterally, no crackles or wheezing Cardiovascular: regular rate and rhythm GI: Normal bowel sounds, soft, non-distended, non-tender Skin/Integumen: No rash on exposed skin. No lower extremity edema Other: Mood is pleasant Medical Decision Making 40 MINUTES SPENT BY ME on the date of service doing chart review, history, exam, documentation & further activities per the note. Data I have personally reviewed the following data over the past 24 hrs: 33.0 (H) \ 9.3 (L) / 173 138 103 25.5 (H) / 121 (H) 3.6 24 1.38 (H) \ Imaging results reviewed over the past 24 hrs: No results found for this or any previous visit (from the past 24 hour(s)). * Orly Chavez, PT - 02/23/2024 3:36 PM CDT 02/23/24 1500 Appointment Info Signing Clinician's Name / Credentials (PT) Orly Chavez DPT Living Environment People in Home alone Current [facility] Ar[facility] Home Accessibility stairs to enter home Number of Stairs, Main Entrance 3 Transportation Anticipated family or friend will provide Living Environment Comments Pt lives alone, has son and dtr who live nearby and frequently assist her Self-Care Usual Activity Tolerance fair Current Activity Tolerance fair Equipment Currently Used at Home walker, rolling;grab bar, toilet;grab bar, tub/shower;shower chair;cane, straight Fall history within last six months yes Number of times patient has fallen within last six months 4 Activity/Exercise/Self-Care Comment Pt reports she is Dejuan with 4WW for mobility. Has assist from family for driving, groceries, laundry. General Information Onset of Illness/Injury or Date of Surgery 02/22/24 Referring Physician Whitehead, Gallito Goodman MD Pertinent History of Current Problem (include personal factors and/or comorbidities that impact thePOC) Dipika Franco is a 83 year old female admitted on 02/22/2024. She presents as a transfer from [facility] in the setting of tumor lysis syndrome after her first cycle of chemotherapy for mantle cell lymphoma. Rasburicase not available at outside hospital, and patient with renal insufficiency. Existing Precautions/Restrictions fall Cognition Affect/Mental Status (Cognition) WFL Orientation Status (Cognition) oriented x 3 Follows Commands (Cognition) WFL Pain Assessment Patient Currently in Pain No Posture Posture Forward head position;Protracted shoulders;Kyphosis Range of Motion (ROM) Range of Motion ROM is WNL Strength (Manual Muscle Testing) Strength Comments decreased functional strength and activity tolerance Bed Mobility Comment, (Bed Mobility) NT, pt up in chair upon PT arrival Transfers Transfers sit-stand transfer Comment, (Transfers) CGA to FWW Gait/Stairs (Locomotion) Comment, (Gait/Stairs) Pt amb 5 ft with FWW and CGA, flexed posturing Balance Balance Comments falls risk, currently rec use of FWW and phys assist for safe upright mobility Sensory Examination Sensory Perception patient reports no sensory changes Clinical Impression Criteria for Skilled Therapeutic Intervention Yes, treatment indicated PT Diagnosis (PT) impaired IND with functional mobility Influenced by the following impairments impaired functional strength, balance, activity tolerance Functional limitations due to impairments impaired bed mobility, transfers, ambulation Clinical Presentation (PT Evaluation Complexity) stable Clinical Presentation Rationale Based on current presentation, PMH, social support Clinical Decision Making (Complexity) low complexity Planned Therapy Interventions (PT) balance training;bed mobility training;gait training;home exercise program;patient/family education;strengthening;transfer training;progressive activity/exercise;home program guidelines Risk & Benefits of therapy have been explained evaluation/treatment results reviewed;care plan/treatment goals reviewed;risks/benefits reviewed;current/potential barriers reviewed;participants voiced agreement with care plan;participants included;patient PT Total Evaluation Time PT Eval, Low Complexity Minutes (18797) 10 Physical Therapy Goals PT Frequency 5x/week PT Predicted Duration/Target Date for Goal Attainment 03/01/24 PT Goals Bed Mobility;Transfers;Gait;Stairs PT: Bed Mobility Modified independent;Supine to/from sit PT: Transfers Modified independent;Sit to/from stand;Bed to/from chair;Assistive device PT: Gait Modified independent;Assistive device;Rolling walker;100 feet PT: Stairs Supervision/stand-by assist;3 stairs Interventions Interventions Quick Adds Therapeutic Activity Therapeutic Activity Therapeutic Activities: dynamic activities to improve functional performance Minutes (44681) 12 Treatment Detail/Skilled Intervention Pt needing to void upon initiation of mobility. Following eval, amb to and from BR (15'x2) with CGA at FWW. Pt with downward gaze, flexed posturing. Toilet transfer with SBA. Giancarlo to don clean brief. Pt requesting assist with pericares, totalA provided. Pt declining further ambulation distance. Remained seated in chair, alarm armed and needs in reach. PT Discharge Planning PT Plan progress gait distance, sit<>Stand reps, balance tasks PT Discharge Recommendation (DC Rec) Transitional Care Facility;home with assist;home with home care physical therapy PT Rationale for DC Rec Pt currently near to reported baseline, but presents after struggling at home. Currently CGA with use of FWW, is at risk for falls. Pt having continued discussion with medicalteam regarding goals of care. Pending goals of care, would consider TCU stay vs home with Ax1 for mobility and cares, HHPT. PT Brief overview of current status Ax1 FWW Total Session Time Timed Code Treatment Minutes 12 Total Session Time (sum of timed and untimed services) 22 * Magrarita Ruiz MD - 02/23/2024 10:08 AM CDT [facility] Medicine Progress Note - Hospitalist Service Date of Admission: 02/22/2024 Assessment & Plan Dipika Franco is a 83 year old female admitted on 02/22/2024. She presents as a transfer from [facility] in the setting of tumor lysis syndrome after her first cycle of chemotherapy for mantle cell lymphoma. Rasburicase not available at outside hospital, and patient with renal insufficiency. 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 Recently underwent her first cycle of Rituxan and bendeka 02/18 and 02/19. Also treated with Neulasta 02/19. LDH 347 Elevated uric acid: 9.6 02/22/2024. Hypercalcemia: 12.1 02/22/2024. Received zoledronic acid 02/20/2024. Note that she had bradycardia in the 40s at outside hospital, but this has improved to a heart rate in the 60s at this time. Anemia: Likely secondary to chemotherapy. She did receive 1 unit of packed red blood cells for hemoglobin of 7.7 02/21/2024 at outside facility. Repeat hemoglobin increased to 10. 6 mg rasburicase x 1 ordered recheck uric acid 4AM (4h after rasburicase dosing) per protocol. Should be sent on ice given enzymatic function of Rasburicase. Daily uric acid Phosphorus, BMP, ionized calcium, LDH timed for 4 AM blood draw. Labs should be followed closely Cardiac telemetry For now, I have ordered allopurinol 100 mg 3 times daily to continue. Reduced dose for tumor lysis in the setting of renal insufficiency. Following uric acid as well as creatinine trend. [place] [facility] consulted, aware of patient from outside hospital 1L NS bolus and Normal saline at 125/h; follow intake and output. No loop diuretic yet. Would like to assess patient's current urine output If hypercalcemia persists, can redose zoledronic acid 02/27/2024. Does not yet meet severity criteria for calcitonin, but monitor for worsening. Goals of care plannin minutes in discussion regarding goals of care. She confirms a DNR/DNI status DNR/DNI requested care management consultation to assist with connecting patient to a hospice agency available in her hometown of [place]. She is interested and would benefit from an informational meetingon hospice, preferably with family present. Severe protein calorie malnutrition in the setting of active malignancy. Over 60 pound weight loss this past year Generalized weakness and physical deconditioning Regular diet as tolerated Nutritional supplements between meals Physical therapy consulted Up with assist, fall precautions Acute kidney injury: Creatinine 1.5 as of 02/22/2024. As high as 2.1 this past week through outside records. [place] potentially secondary to both tumor lysis, dehydration, and IV contrast for recent CT. Rasburicase treatment as above with reduced dose allopurinol for hyperuricemia. Intake and output Follow labs IV saline 1 L bolus with 125 mL/h thereafter; adjust pending urine output Constipation: Chronic ongoing issue, likely related to peritoneal carcinomatosis, potentially further exacerbated by new hypercalcemia. Reports he has not had a bowel movement in 5 days Scheduled senna and MiraLAX Additional as needed bowel regimen available Diet: Combination Diet Regular Diet Adult Snacks/Supplements Adult: Beneprotein; Between Meals DVT Prophylaxis: Enoxaparin (Lovenox) SQ [place] Catheter: Not present Lines: None Cardiac Monitoring: ACTIVE order. Indication: Electrolyte Imbalance (24 hours)- Magnesium <1.3 mg/ml; Potassium < =2.8 or > 5.5 mg/ml Code Status: No CPR- Do NOT Intubate Clinically Significant Risk Factors Present on Admission # Hypercalcemia: Highest Ca = 12.7 mg/dL in last 2 days, will monitor as appropriate # Hypoalbuminemia: Lowest albumin = 3 g/dL at 02/23/2024 4:36 AM, will monitor as appropriate # Anemia: based on hgb <11 Disposition Plan Medically Ready for Discharge: Anticipated in 2-4 Days Margarita Ruiz MD Hospitalist Service [facility] Securely message with [employer] (more info) Text page via [facility] Paging/Directory Interval History I got to sleep about 5 AM. Patient says she is exhausted, she was up almost all night long. She says she talked with her son, she does not want to continue chemotherapy. Son asks about timing for discharge, they live in [place] and, if she needs TCU at discharge, she would like to go to [facility]. She has no new respiratory or GI complaints. Physical Exam Vital Signs: Temp: 97.7 ??F (36.5 ??C) Temp src: Oral BP: (!) 153/60 Pulse: 57 Resp: 18 SpO2: 93 % O2 Device: None (Room air) Weight: 170 lbs 11.2 oz Constitutional: Awake, alert, cooperative, no apparent distress Respiratory: Clear to auscultation bilaterally, no crackles or wheezing Cardiovascular: Bradycardic, regular rate and rhythm GI: Normal bowel sounds, soft, non-distended, non-tender Skin/Integumen: No rash on exposed skin. No lower extremity edema Other: Mood is frustrated Medical Decision Making 35 MINUTES SPENT BY ME on the date of service doing chart review, history, exam, documentation & further activities per the note. Data I have personally reviewed the following data over the past 24 hrs: 27.9 (H) \ 10.0 (L) / 173 137; 137 101; 101 31.3 (H); 31.3 (H) / 124 (H); 124 (H) 3.8; 3.8 25; 25 1.65 (H); 1.65 (H) \ ALT: 6 AST: 14 AP: 83 TBILI: 0.2 ALB: 3.0 (L) TOT PROTEIN: 4.9 (L) LIPASE: N/A Ferritin: N/A % Retic: N/A LDH: 235 Imaging results reviewed over the past 24 hrs: No results found for this or any previous visit (from the past 24 hour(s)). * John Ocampo RD - 02/23/2024 9:40 AM CDT CLINICAL NUTRITION SERVICES - ASSESSMENT NOTE Recommendations Ordered by Registered Dietitian (RD): Ensure's BID @ breakfast and HS snack Rodriguez Gel+ w/ lunch Encouraged po intake, emphasizing the importance of protein to preserve lean muscle mass Future/Additional Recommendations: monitor po vs wt trends, supp tolerance Malnutrition: 6/7 % Weight Loss: Weight loss does not meet criteria for malnutrition - 5.6% wt loss in 6 months and 8% wt loss in 8 months do not meet criteria % Intake: </= 75% for >/= 1 month (severe malnutrition) Subcutaneous Fat Loss: None observed Muscle Loss: Clavicle bone region mild depletion, Upper arm region mild depletion, and Dorsal hand region mild depletion - difficult to assess vs sarcopenia Fluid Retention: None noted Malnutrition Diagnosis: Moderate malnutrition In Context of: Acute illness or injury Chronic illness or disease REASON FOR ASSESSMENT Dipika Franco is a 83 year old female seen by Registered Dietitian for Admission Nutrition RiskScreen for positive Malnutrition Score: 3 (02/22/24 2200) for unsure wt loss and poor appetite. PMH of: has a past medical history of Adrenal adenoma, Conduction disorder of the heart, DDD (degenerative disc disease), cervical, Diabetes mellitus (H), DJD (degenerative joint disease) of knee, Female stress incontinence, Intra- abdominal and pelvic swelling, mass and lump, unspecified site, Migraine, Pseudoarthrosis of lumbar spine, Pyuria, and Sagittal plane imbalance. - Presents w/ tumor lysis syndrome after her first cycle of chemotherapy for mantle cell lymphoma. Rasburicase not available at outside hospital, and patient with renal insufficiency. NUTRITION HISTORY - Information obtained from chart review and pt at bedside, who endorsed the wt loss and poor appetite. Son came in longterm through. - Dipika explained here 3 years ago, she stopped cooking as much, and started losing wt, which she was happy with. She came back from [place] this past December, had a very poor appetite and has been hardly eating anything at all since then. She saw her primary MD who said she no longer had DM with the wt loss, however, they ran a blood test that showed she had renal CA. - Chewing/swallowing issues or other Barriers to PO intakes: Nothing tastes good - Use of oral supplements: Pt said she drinks Ensure's BID @ home and wanted to receive one w/ breakfast and HS snack. She was also interested in receiving a rodriguez Gel+ w/ lunch CURRENT NUTRITION ORDERS Diet Order: Regular Current Intake/Tolerance: Flowsheets show a no appetite or intakes yet. NUTRITION FOCUSED PHYSICAL ASSESSMENT FOR DIAGNOSING MALNUTRITION) Yes Observed: Muscle wasting (refer to documentation in Malnutrition section) ANTHROPOMETRICS Height: 5' 4.5 Weight: 170 lbs 11.2 oz Body mass index is 28.85 kg/m??. Weight Status: Overweight BMI 25-29.9 IBW: 55.7 kg % IBW: 139% Weight History: 5.6% wt loss in 6 months and 8% wt loss in 8 months do NOT meet criteria Wt Readings from Last 10 Encounters: 02/23/24 77.4 kg (170 lb 11.2 oz) 01/22/24 73 kg (161 lb) Care everywhere, 01/01/24 : 71.3 kg (157 lb 3.2 oz) 09/06/23 : 82 kg (180 lb 12.8 oz) 07/17/23 : 84.1 kg (185 lb 8 oz) 06/06/23 : 87.1 kg (192 lb) 04/05/23 : 87.1 kg (192 lb) 11/02/22 : 88 kg (194 lb) LABS BG 124 MEDICATIONS Senna, IVF @ 125 ml/hr ASSESSED NUTRITION NEEDS PER APPROVED PRACTICE GUIDELINES: Dosing Weight 61.1 kg (adjusted) Estimated Energy Needs: 8598-0081 kcals (25-30 Kcal/Kg) Justification: maintenance Estimated Protein Needs: 73-92 grams protein (1.2-1.5 g pro/Kg) Justification: preservation of lean body mass Estimated Fluid Needs: 6002-2248 mL (1 mL/Kcal) Justification: maintenance MALNUTRITION: % Weight Loss: Weight loss does not meet criteria for malnutrition - 5.6% wt loss in 6 months and 8% wt loss in 8 months do not meet criteria % Intake: </= 75% for >/= 1 month (severe malnutrition) Subcutaneous Fat Loss: None observed Muscle Loss: Clavicle bone region mild depletion, Upper arm region mild depletion, and Dorsal hand region mild depletion - difficult to assess vs sarcopenia Fluid Retention: None noted Malnutrition Diagnosis: Moderate malnutrition In Context of: Acute illness or injury Chronic illness or disease NUTRITION DIAGNOSIS: Inadequate oral intake related to poor appetite as evidenced by pt report nothing tastes good, <75% po intake for >1 month, mild muscle losses and need for oral nutrition supplements to help pt meet needs NUTRITION INTERVENTIONS Recommendations / Nutrition Prescription Ensure's BID @ breakfast and HS snack Rodriguez Gel+ w/ lunch Continue Regular diet Encouraged po intake, emphasizing the importance of protein to preserve lean muscle mass Implementation Nutrition education: Per Provider order if indicated Medical Food Supplement Nutrition Goals PO intake - >75% of meal trays, or the equivalent in supplements, TID MONITORING AND EVALUATION: Progress towards goals will be monitored and evaluated per protocol and Practice Guidelines John Ocampo RD, LD * Tony Dave RN - 02/22/2024 10:55 PM CDT Settled patient, took vitals, filled out personal profile. Patient is A&O x4. She lives alone Son James and daughter Radha are caretakers. Patient has follicular lymphoma and completed a course of chemo on 02/18. Her bloods were taken at the clinic today and she was told to go to the hospital in [place]. She was then transferred to [facility] on Room air except HTN. According to the nurse who gave report there was some concern with Tumor Lysis Syndrome and an VEE. Patient is waiting for Dr. Whitehead to see her. No orders have been put in yet. documented in this encounter H&P Notes * Gallito Whitehead MD - 02/22/2024 10:48 PM CDT [facility] History and Physical - Hospitalist Service Date of Admission: 02/22/2024 Assessment & Plan Dipika Franco is a 83 year old female admitted on 02/22/2024. She presents as a transfer from [facility] in the setting of tumor lysis syndrome after her first cycle of chemotherapy for mantle cell lymphoma. Rasburicase not available at outside hospital, and patient with renal insufficiency. 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 Recently underwent her first cycle of Rituxan and bendeka 02/18 and 02/19. Also treated with Neulasta 02/19. LDH 347 Elevated uric acid: 9.6 02/22/2024. Hypercalcemia: 12.1 02/22/2024. Received zoledronic acid 02/20/2024. Note that she had bradycardia in the 40s at outside hospital, but this has improved to a heart rate in the 60s at this time. Anemia: Likely secondary to chemotherapy. She did receive 1 unit of packed red blood cells for hemoglobin of 7.7 02/21/2024 at outside facility. Repeat hemoglobin increased to 10. -6 mg rasburicase x 1 ordered -recheck uric acid 4AM (4h after rasburicase dosing) per protocol. Should be sent on ice given enzymatic function of Rasburicase. -Daily uric acid -Phosphorus, BMP, ionized calcium, LDH timed for 4 AM blood draw. Labs should be followed closely -Cardiac telemetry -For now, I have ordered allopurinol 100 mg 3 times daily to continue. Reduced dose for tumor lysisin the setting of renal insufficiency. Following uric acid as well as creatinine trend. -[place] [facility] consulted, aware of patient from outside hospital -1L NS bolus and Normal saline at 125/h; follow intake and output. No loop diuretic yet. Would liketo assess patient's current urine output -If hypercalcemia persists, can redose zoledronic acid 02/27/2024. Does not yet meet severity criteria for calcitonin, but monitor for worsening. Goals of care plannin minutes in discussion regarding goals of care. She confirms a DNR/DNI status, but expresses hesitancy and continuing with chemotherapy. She feels weaker after her chemotherapy doses Monday and Monday. She tells me that her oncologist gave her a prognosis of months, and when she heard this, was not ready for . This led to initiation of chemotherapy, but again, patient is having some internal debate about whether she wants to prolong her life if it means further weakness and hospitalizations. She expresses a desire not to linger. She had questions about what hospice might entail, and we discussed loss of chemotherapy, imaging, therapies and more of a focus on rapid access to providers for symptom management, assist devices such as commodes, catheters, or hospital beds. She would like to remain in her home as long as possible. Tells me about a brother whosomewhat recently on hospice in a hospice facility which she also thought was beautiful. -DNR/DNI -I have requested care management consultation to assist with connecting patient to a hospice agency available in her hometown of [place]. She is interested and would benefit from an informationalmeeting on hospice, preferably with family present. She recognizes that she will transition to hospice at some point in the near future, but no plan to immediately enroll. Her daughter, who is her primary healthcare advocate, is on a vacation to [place] for the next 8 days. Her son, who also lives in [place] and is assisting her while daughter is away will be leaving on vacation the day after her daughter returns. As such, this informational meeting could hopefully be arranged for 2 weeks from now; both local children will be around for 1 week before daughter going on another vacation to [place]. -Encouraged patient to let providers know if she felt that her treatment was too much here in the hospital and she wanted to de-escalate her cares. Would be perfectly reasonable to pursue a comfort based approach with her age and weight loss if this is what she desires. She does not anticipate immediate transition to hospice at this time, however, because her daughter is out of town (on a cruise,so might not be available by phone). Severe protein calorie malnutrition in the setting of active malignancy. Over 60 pound weight loss this past year Generalized weakness and physical deconditioning -Regular diet as tolerated -Nutritional supplements between meals -Physical therapy consulted -Up with assist, fall precautions Acute kidney injury: Creatinine 1.5 as of 02/22/2024. As high as 2.1 this past week through outside records. [place] potentially secondary to both tumor lysis, dehydration, and IV contrast for recent CT. -Rasburicase treatment as above with reduced dose allopurinol for hyperuricemia. 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 Reports he has not had a bowel movement in 5 days -Scheduled senna and MiraLAX -Additional as needed bowel regimen available Diet: Regular adult diet as tolerated DVT Prophylaxis: Enoxaparin (Lovenox) SQ [place] Catheter: Not present Lines: None Cardiac Monitoring: None Code Status: DNR/DNI Clinically Significant Risk Factors Present on Admission Disposition Plan Medically Ready for Discharge: Anticipated in 2-4 Days with normalization of hyperuricemia, hypercalcemia Gallito Whitehead MD Hospitalist Service [facility] Securely message with [employer] (more info) Text page via [facility] Paging/Directory Chief Complaint Weakness History is obtained from the patient, chart review, brief discussion with transferring accepting provider, Dr. Chen, review of outside records sent with patient from [facility] History of Present Illness Dipika Franco is a 83 year old female who presents as a direct admission from [facility] in the setting of mantle cell lymphoma with bulky adenopathy and recent chemotherapy now with tumor lysis syndrome. Essentially, she received her first cycle of chemotherapy with Rituxan and Bendeka 02/18 and 02/20/2024. Received Neulasta 02/20/2024. She had labs drawn with her Neulasta and second Bendeka dose, and was on her way home to [place] from [facility] where she received her chemo when she received a call advising her to go to the hospital for treatment of lab abnormalities she has some acute kidney injury with creatinine of 1.8 and 2.1 around time of admission to outsidehospital. Elevated LDH, elevated uric acid. There was concern for tumor lysis syndrome. She was hospitalized at [facility] where [place] [facility] was providing telephone consultation. She received zoledronic acid and was initiated on allopurinol for hypercalcemia and hyperuricemia. Oncology recommended rasburicase in the setting of her renal insufficiency and hyperuricemia, but this was not available at [place]. This led to transfer to [facility] when bed became available. Patient reports no pain. Her primary complaint is that she feels generally weak. She feels her weakness has worsened since chemotherapy earlier this week, but has also been a longstanding issue with her now recently diagnosed mantle cell lymphoma. She also complains of some constipation which has been longstanding and likely related to peritoneal carcinomatosis now may be worsened with hypercalcemia. She had bradycardia in the 40s at outside hospital by EKG review, but currently with heart ratein the 60s. She reports no lightheadedness. As noted above, a significant portion of our discussion was centered around her goals of care. She questions if she should continue receiving chemotherapy or focus more on comfort. Of note, it was a surprise to patient when transport arrived to transfer her from [facility] to [facility]. She was also disappointed as she was told that her son was updated, but when she called him on arrival, he was unaware of transfer as well. 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 Taking? Acetaminophen 325 MG CAPS at PRN Yes Yes Sig: Take 325-650 mg by mouth every 4 hours as needed potassium chloride ER (K-TAB) 20 MEQ CR tablet Yes Yes Sig: Take 20 mEq by mouth rosuvastatin (CRESTOR) 20 MG tablet Yes Yes Sig: Take 20 mg by mouth daily Facility-Administered Medications: None Physical Exam Vital Signs: Temp: 97.9 ??F (36.6 ??C) Temp src: Oral BP: (!) 160/64 Pulse: 59 SpO2: 96 % O2 Device: None (Room air) General Appearance: Generally well-appearing and fairly robust 83-year-old female resting on hospital bed. Eyes: No scleral icterus or injection HEENT: Normocephalic and atraumatic Respiratory: Breath sounds clear bilaterally without wheezes or crackles. Cardiovascular: Borderline bradycardia with heart rate in the 60s range. Regular rhythm. 2/6 mid peaking systolic murmur present and best appreciated at upper sternal borders. GI: Abdomen obese, no palpable mass. Soft. Urge to urinate with palpation of lower abdomen without discretely palpable bladder Musculoskeletal: Muscular tone and bulk intact in all extremities, generally appropriate for age. Neurologic: Alert, conversant, appropriate conversation. Mental status is grossly intact. Psychiatric: Very pleasant, normal affect Medical Decision Making 75 MINUTES SPENT BY ME on the date of service doing chart review, history, exam, documentation & further activities per the note. Data Laboratory studies reviewed from [facility]. Sodium 134, potassium 3.6, chloride 104, creatinine 1.5 as of 02/22/2024. Magnesium 1.6. Calcium 12.1, was 11.7 on 02/20 Uric acid 9.6, was 9.5 on 02/20 AST 22, ALT 10, alkaline phosphatase 67, albumin 3.1, total protein 5.3. White count of 17 02/22/24, 4.4 on 02/20 (neulasta 02/19) Hemoglobin 10, was 7.7 February 20 when she received a packed red blood cell transfusion Platelet count of 165 Imaging results reviewed over the past 24 hrs: No results found for this or any previous visit (from the past 24 hour(s)). documented in this encounter Consult Notes * Angelita Gr LSW - 02/24/2024 12:15 PM CDTAssociated Order(s): CARE MANAGEMENT / SOCIAL WORK IP CONSULT Care Management Initial Consult General Information Assessment completed with: Patient, Type of CM/SW Visit: Initial Assessment Primary Care Provider verified and updated as needed: Yes Readmission within the last 30 days: no previous admission in last 30 days Reason for Consult: discharge planning Advance Care Planning: Communication Assessment Patient's communication style: spoken language (Bahraini or Bilingual) Hearing Difficulty or Deaf: no Wear Glasses or Blind: yes Cognitive Cognitive/Neuro/Behavioral: WDL Living Environment: People in home: alone Current living Arrangements: town home Able to return to prior arrangements: yes Family/Social Support: Care provided by: self Provides care for: no one Marital Status: Children Description of Support System: Supportive, Involved Support Assessment: Adequate family and caregiver support, Adequate social supports Current Resources: Patient receiving home care services: No Community Resources: None Equipment currently used at home: walker, rolling, grab bar, toilet, grab bar, tub/shower, shower chair, cane, straight Supplies currently used at home: Employment/Financial: Employment Status: Financial Concerns: Does the patient's insurance plan have a 3 day qualifying hospital stay waiver? No Lifestyle & Psychosocial Needs: Social Determinants of Health Food Insecurity: No Food Insecurity (01/01/2024) [facility] [employer] Food Insecurity Worried About Running Out of Food in the Last Year: 1 Depression: At risk (04/05/2023) Received from [facility] PHQ-2 PHQ-2 TOTAL SCORE: 3 Housing Stability: Low Risk (01/01/2024) [facility] Housing Stability Unable to Pay for Housing in the Last Year: 1 Tobacco Use: Low Risk (01/22/2024) Patient History Smoking Tobacco Use: Never Smokeless Tobacco Use: Never Passive Exposure: Not on file Financial Resource Strain: Low Risk (01/01/2024) [facility] Financial Resource Strain Difficulty of Paying Living Expenses: 3 Difficulty of Paying Living Expenses: Not on file Alcohol Use: Not on file Transportation Needs: No Transportation Needs (01/01/2024) Received from [facility] Transportation Needs Lack of Transportation (Medical): 1 Physical Activity: Not on file Interpersonal Safety: Not on file Stress: Not on file Social Connections: Socially Isolated (01/01/2024) [facility] from [facility] Social Connections Frequency of Communication with Friends and Family: 4 Health Literacy: Not on file Functional Status: Prior to admission patient needed assistance: Mental Health Status: Chemical Dependency Status: Values/Beliefs: Spiritual, Cultural Beliefs, Gnosticist Practices, Values that affect care: Additional Information: Address Change Clerk received consult for discharge planning. Per H&P, patient is a 83 year old female admitted on 02/22/2024. She presents as a transfer from [facility] in the setting of tumor lysis syndrome after her first cycle of chemotherapy for mantle cell lymphoma. Address Change Clerk met with patient and introduced self and role. Patient states that she lives in a town home with her dog. Patient states she uses a walker at baseline and gets around pretty well. Both her sonand daughter live in [place] and are able to come over sometimes but not all the time to help. Patient is hoping to find someone to come live with her to help her through chemotherapy but has been unsuccessful. Patient would like to go to [facility]. Address Change Clerk let her know that, that specific facility no longer has a TCU but we could look at [facility] in [place]. Patient states she does not want to go there. Patient states she would be open to [facility] but if she cannot get in there she is not going to TCU and would like to go home with Home Care. Address Change Clerk let her know that we would send referrals for both [facility] and Home Care to have a back up option. Address Change Clerk did discuss the need for chemotherapy having to be held in the TCU. Patient was okay with this and film writer encouraged her to speak with her oncologist about this further. Patient states she was going to talk with her family about options as well. SW will continue to follow. Referrals sent. BRITTANY Telles * Wu Spencer, DO - 02/23/2024 5:24 PM CDTAssociated Order(s): HEMATOLOGY & ONCOLOGY IP CONSULT Images from the original note were not included. Consultation Dipika Franco Date of : 1940 Age: [age] year old Date of Admission: 02/22/2024 Requesting physician: Dr. Whitehead Reason for consult: TLS, lymphoma Assessment and Plan: Primary Oncologist: Dr. Velarde, [place] Follicular lymphoma - Stage IV, grade 1-2 - Symptoms: Weight loss, night sweats, early satiety - Started Bendamustine Rituximab 02/19/24, did not receive Bendamustine day 2 due to severe hypercalcemia which prompted hospital admission - Uric acid elevated at outside hospital, [facility] and received 6mg Rasbirucase - She received Neulasta growth factor support 2. TLS - Increased creatinine - IVF and s/p rasburicase - Trending uric acid 3. Severe hypercalcemia - Received Zometa 02/20/24 - Most likely contributing to her malaise 4. Upper abdominal pain Dr. Velarde suspects this is related to malignancy; diffuse adenopathy in the abdomen with omental carcinomatosis, peritoneal nodularity with thickening and mild ascites PLAN - Continue supportive measures, IVF - Can give additional dose Zometa 1 week after initial if severe hypercalcemia persists - I had a discussion with the patient and her son -> her type of lymphoma is very sensitive to treatment. Patients with follicular lymphoma have similar life expectancies to patients without the lymphoma. Initial worsening of symptoms are to be expected as she is dealing with symptoms from lymphoma and chemotherapy. - I will arrange for her outpatient meeting with Dr. Velarde to be postponed (scheduled for Monday) - She may wish to go to a care home instead of home - Continue allopurinol Wu Spencer DO [facility] [phone] (office) Chief Complaint: No chief complaint on file. History of Present Illness: The patient was recently started on Bendamustine and rituximab. On day 2 of her treatment her CMP came back from the day prior. Her calcium was severely elevated and she was sent to the hospital for further evaluation. In the hospital she was found to have an acute kidney injury with significantly e levated uric acid. She was transferred to [facility] because the other hospital did not have [facility] case. She was given a dose of rasburicase and her uric acid has come down to normal limits. She is not sure if she wants to continue with treatment. She has been dealing with severe fatigueweight loss and night sweats. The chemotherapy made her feel worse. She has been getting intravenous fluids and has already received a dose of Zometa. Oncology was consulted for further evaluation and management. 01/03/2024: Presented to [place] ER for unintentional weight loss, fatigue, etc. CT chest/abdomen/pelvis w/ IV contrast noted diffuse adenopathy (likely metastatic), omental carcinomatosis, peritoneal nodularity with thickening and mild enhancement, mild to moderate pelvic ascltes. 01/10/2024: Tumor markers with Ca-125 = 1068 (elevated), CEA = 0.9 (normal) & Ca 19-9 = 8 (normal). 01/15/2024: IR biopsy requested. Patient presented to [facility] & did not feel there was a safe window due to bowel. Paracentesis of 700 cc performed. Lab called and was unable to run cytology as not enough fluid (only had 12 cc in the lab). 01/17/2024: Gynecologic oncology consultation (video visit) with Dr. 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 01/22/2024 patient had a laparoscopic biopsy of the omentum which showed follicular lymphoma classical pattern grade 1-2. Patient was now referred for medical oncology consult. Patient reported that she continues to experience the same symptoms of unintentional weight loss fatigue since May 2023 she estimates that she has lost about 50 pounds in weight. She denies fever but experiencing night sweats she denies significant pain except for arthritic pain she has some a bdominal discomfort and early satiety. She denies any palpable lymph nodes. Physical Exam: Vitals were reviewed Blood pressure (!) 146/92, pulse 64, temperature 98.1 ??F (36.7 ??C), temperature source Oral, resp. rate 18, weight 77.4 kg (170 lb 11.2 oz), SpO2 93%. Temperatures: Current - Temp: 98.1 ??F (36.7 ??C); Max - Temp Av ??F (36.7 ??C) Min: 97.7 ??F (36.5 ??C) Max: 98.4 ??F (36.9 ??C) Respiration range: Resp Av Min: 18 Max: 18 Pulse range: Pulse Av.8 Min: 57 Max: 64 Blood pressure range: Systolic (24hrs), Av , Min:146 , Max:168 ; Diastolic (24hrs), Av, Min:60, Max:92 Pulse oximetry range: SpO2 Av % Min: 93 % Max: 96 % GENERAL: No acute distress. SKIN: No rashes or jaundice. HEENT: Normocephalic, atraumatic. Eyes anicteric. Oropharynx is clear. LYMPH: No palpable lymphadenopathy in the cervical or supraclavicular regions HEART: Regular rate and rhythm with no murmurs. LUNGS: Clear bilaterally. ABDOMEN: Soft, nontender, nondistended with no palpable hepatosplenomegaly. EXTREMITIES: No clubbing, cyanosis, or edema. MENTAL: Alert and oriented to person, place, and time. NEURO: Cranial nerves II through XII grossly intact with no focal motor or sensory deficits. 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), cervical Diabetes mellitus (H) DJD (degenerative joint disease) of knee Female stress incontinence Intra-abdominal and pelvic swelling, mass and lump, unspecified site Migraine Pseudoarthrosis of lumbar spine Pyuria Sagittal plane imbalance Past Surgical History: I have reviewed this patient's past surgical history Past Surgical History: Procedure Laterality Date APPENDECTOMY CHOLECYSTECTOMY CYSTOCELE REPAIR HYSTERECTOMY 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 Allergies: Allergies Allergen Reactions Blood Transfusion Related (Informational Only) Other (See Comments) Patient has a history of a clinically significant antibody against RBC antigens. A delay in compatible RBCs may occur. Metformin Nausea Niacin Hives Sulfa Antibiotics Hives Medications: I have reviewed this patient's current medications Medications Prior to Admission Medication Sig Dispense Refill Last Dose Acetaminophen 325 MG CAPS Take 325-650 mg by mouth every 4 hours as needed at PRN potassium chloride ER (K-TAB) 20 MEQ CR tablet Take 20 mEq by mouth rosuvastatin (CRESTOR) 20 MG tablet Take 20 mg by mouth daily Current Facility-Administered Medications Medication Dose Route Frequency Provider Last Rate Last Admin acetaminophen (TYLENOL) tablet 650 mg 650 mg Oral Q4H PRN Ventura, Gallito Goodman MD 650 mg at 02/23/24 0654 Or acetaminophen (TYLENOL) Suppository 650 mg 650 mg Rectal Q4H PRN Ventura, Gallito Goodman MD allopurinol (ZYLOPRIM) tablet 100 mg 100 mg Oral TID Ventura, Gallito Goodman MD 100 mg at 02/23/24 1631 bisacodyl (DULCOLAX) suppository 10 mg 10 mg Rectal Daily PRN Ventura, Gallito Goodman MD enoxaparin ANTICOAGULANT (LOVENOX) injection 40 mg 40 mg Subcutaneous Q24H Gallito Whitehead MD 40mg at 02/23/24 0946 lidocaine (LMX4) cream Topical Q1H PRN Gallito Whitehead MD lidocaine 1 % 0.1-1 mL 0.1-1 mL Other Q1H PRN Ventura, Gallito Goodman MD melatonin tablet 1 mg 1 mg Oral At Bedtime PRN Gallito Whitehead MD naloxone (NARCAN) injection 0.2 mg 0.2 mg Intravenous Q2 Min PRN Mathew Chen MD Or naloxone (NARCAN) injection 0.4 mg 0.4 mg Intravenous Q2 Min PRN Mathew Chen MD Or naloxone (NARCAN) injection 0.2 mg 0.2 mg Intramuscular Q2 Min PRN Mathew Chen MD Or naloxone (NARCAN) injection 0.4 mg 0.4 mg Intramuscular Q2 Min PRN Mathew Chen MD ondansetron (ZOFRAN ODT) ODT tab 4 mg 4 mg Oral Q6H PRN Whitehead, Gallito Goodman MD Or ondansetron (ZOFRAN) injection 4 mg 4 mg Intravenous Q6H PRN Whitehead, Gallito Goodman MD oxyCODONE (ROXICODONE) tablet 5 mg 5 mg Oral Q4H PRN Whitehead, Gallito Goodman MD oxyCODONE IR (ROXICODONE) half-tab 2.5 mg 2.5 mg Oral Q4H PRN Whitehead, Gallito Goodman MD polyethylene glycol (MIRALAX) Packet 17 g 17 g Oral Daily Whitehead, Gallito Goodman MD 17 g at 02/23/24 0938 polyethylene glycol (MIRALAX) Packet 17 g 17 g Oral BID PRN Whitehead, Gallito Goodman MD prochlorperazine (COMPAZINE) injection 5 mg 5 mg Intravenous Q6H PRN Whitehead, Gallito Goodman MD Or prochlorperazine (COMPAZINE) tablet 5 mg 5 mg Oral Q6H PRN Whitehead, Gallito Goodman MD Or prochlorperazine (COMPAZINE) suppository 12.5 mg 12.5 mg Rectal Q12H PRN Whitehead, Gallito Goodman MD senna-docusate (SENOKOT-S/PERICOLACE) 8.6-50 MG per tablet 1 tablet 1 tablet Oral BID PRN Whitehead, Gallito Goodman MD Or senna-docusate (SENOKOT-S/PERICOLACE) 8.6-50 MG per tablet 2 tablet 2 tablet Oral BID PRN Whitehead, Gallito Goodman MD 2 tablet at 02/23/24 0938 senna-docusate (SENOKOT-S/PERICOLACE) 8.6-50 MG per tablet 1 tablet 1 tablet Oral At Bedtime Whitehead, Gallito Goodman MD 1 tablet at 02/23/24 0043 sodium chloride (PF) 0.9% PF flush 3 mL 3 mL Intracatheter Q8H Whitehead, Gallito Goodman MD sodium chloride (PF) 0.9% PF flush 3 mL 3 mL Intracatheter q1 min prn Whitehead, Gallito Goodman MD sodium chloride 0.9 % infusion Intravenous Continuous Whitehead, Gallito Goodman MD 125 mL/hr at 02/23/24 1222 New Bag at 02/23/24 1222 Review of Systems: The 10 point Review of Systems is negative other than noted in the HPI. Data: Data Results for orders placed or performed during the hospital encounter of 02/22/24 (from the past 24 hour(s)) Uric acid, Rasburicase lab to be drawn 4 hours post-infusion on day 1 Result Value Ref Range Uric Acid, Rasburicase 3.9 2.4 - 5.7 mg/dL Basic metabolic panel Result Value Ref Range Sodium 137 135 - 145 mmol/L Potassium 3.8 3.4 - 5.3 mmol/L Chloride 101 98 - 107 mmol/L Carbon Dioxide (CO2) 25 22 - 29 mmol/L Anion Gap 11 7 - 15 mmol/L Urea Nitrogen 31.3 (H) 8.0 - 23.0 mg/dL Creatinine 1.65 (H) 0.51 - 0.95 mg/dL GFR Estimate 30 (L) >60 mL/min/1.73m2 Calcium 12.7 (H) 8.8 - 10.2 mg/dL Glucose 124 (H) 70 - 99 mg/dL Phosphorus Result Value Ref Range Phosphorus 2.8 2.5 - 4.5 mg/dL Ionized Calcium Result Value Ref Range Calcium Ionized Whole Blood 6.9 (H) 4.4 - 5.2 mg/dL Comprehensive metabolic panel Result Value Ref Range Sodium 137 135 - 145 mmol/L Potassium 3.8 3.4 - 5.3 mmol/L Carbon Dioxide (CO2) 25 22 - 29 mmol/L Anion Gap 11 7 - 15 mmol/L Urea Nitrogen 31.3 (H) 8.0 - 23.0 mg/dL Creatinine 1.65 (H) 0.51 - 0.95 mg/dL GFR Estimate 30 (L) >60 mL/min/1.73m2 Calcium 12.7 (H) 8.8 - 10.2 mg/dL Chloride 101 98 - 107 mmol/L Glucose 124 (H) 70 - 99 mg/dL Alkaline Phosphatase 83 40 - 150 U/L AST 14 0 - 45 U/L ALT 6 0 - 50 U/L Protein Total 4.9 (L) 6.4 - 8.3 g/dL Albumin 3.0 (L) 3.5 - 5.2 g/dL Bilirubin Total 0.2 <=1.2 mg/dL CBC with platelets Result Value Ref Range WBC Count 27.9 (H) 4.0 - 11.0 10e3/uL RBC Count 3.46 (L) 3.80 - 5.20 10e6/uL Hemoglobin 10.0 (L) 11.7 - 15.7 g/dL Hematocrit 30.8 (L) 35.0 - 47.0 % MCV 89 78 - 100 fL MCH 28.9 26.5 - 33.0 pg MCHC 32.5 31.5 - 36.5 g/dL RDW 13.6 10.0 - 15.0 % Platelet Count 173 150 - 450 10e3/uL Lactate Dehydrogenase Result Value Ref Range Lactate Dehydrogenase 235 0 - 250 U/L Magnesium Result Value Ref Range Magnesium 1.3 (L) 1.7 - 2.3 mg/dL Potassium Result Value Ref Range Potassium 3.8 3.4 - 5.3 mmol/L I spent a total of minutes reviewing the patient chart, face to face with the patient, documenting the encounter and placing orders. documented in this encounter Miscellaneous Notes * Plan of Care - Oma Carrillo, PT - 02/29/2024 12:13 PM CDT Physical Therapy Discharge Summary Reason for therapy discharge: Discharged to [facility] Progress towards therapy goal(s). See goals on Care Plan in Epic electronic health record for goal details. Goals partially met. Barriers to achieving goals: discharge from facility. Therapy recommendation(s): Continued therapy is recommended. Rationale/Recommendations: To further improve mobility and independence. * Plan of Care - Maureen Crowell RN - 02/29/2024 8:09 AM CDT 1900 - 0730 Orientation: A&Ox4 Activity: A1 w/GB+W Diet/BS Checks: Regular Tele: N/A IV Access/Drains: L PIV infusing NS @ 75 mL/hr Pain Management: PRN oxy x1 and tylenol x1 given for R hip pain - effective Abnormal VS/Results: VSS on RA ex HTN Bowel/Bladder: Incontinent at times, x3 soft/loose BMs overnight Skin/Wounds: Blanchable redness to coccyx, scattered bruising Consults: Hem/Onc, Nutrition, SW D/C Disposition: Possibly today pending labs Other Info: K+, Mg protocols. * Plan of Care - Luisa Alcazar RN - 02/28/2024 5:59 PM CDT 02/28/24-1929 Orientation: AxOx4 Activity: Up with assist 1, walker GB Diet/BS Checks: regular diet, poor appetite, needs encouragement for ordering diet Tele: NA IV Access/Drains: L PIV NS@ 75 cc/hr. Pain Management: denies pain Abnormal VS/Results:VSS Bowel/Bladder: incont @ times with bladder, continent with BM x 2 Skin/Wounds: scattered bruising, blanchable redness to coccyx. Consults: PT/ONC, SW D/C Disposition: pending labs tomorrow. Other Info: MG and K protocol. * Plan of Care - Zulma Woodard RN - 02/28/2024 6:13 AM CDT 02/27/20241899 - 02/28/2024729 Orientation: A&Ox4; calm, cooperative, pleasant Activity: Assist x 1 with GB and walker Diet/BS Checks: Regular diet; tolerating without problems, poor appetite Tele: n/a IV Access/Drains: PIV SL Pain Management: denies Abnormal VS/Results: VSS; RA Bowel/Bladder: Incontinent of bladder d/t urgency; no BM this shift, scheduled senna/Miralax given Skin/Wounds: Blanchable redness to coccyx, scattered bruising Consults: Hem/onc, PT, SW D/C Disposition: pending lab results, [facility] has accepted patient when medically stable, hopefully today Other Info: - K and mag protocols * Plan of Care - Marcy Emanuel RN - 02/27/2024 6:33 PM CDT [id number] Pt continues to struggle with oral intake. Food just doesn't taste 'right', does get some ensure down with meals. Incontinent of urine and uses bathroom also. Calcium 13.8 today, received IV dose of zometa this evening. Up with SBA/GB/walker. Pt has care facility that has accepted her. Hopefully discharge tomorrow pending labs. * Provider Notification - Marcy Emanuel RN - 02/27/2024 4:[address] Finley's note from today pt should continue allopurinol but it is not currently ordered.Paged and spoke with Dr. Finley and order received for allopurinol 300 mg daily. * Plan of Care - Dionne Rasmussen RN - 02/27/2024 6:48 AM CDT Orientation: A&Ox4 Activity: a-1 gb/w Diet/BS Checks: reg Tele: n/a IV Access/Drains: PIV SL Pain Management: denies Abnormal VS/Results: VSS on RA Bowel/Bladder: bladder inc at times d/t urgency, no BM this shift Skin/Wounds: blanchable redness to bottom, scattered bruising Consults: hem/onc, sw,pt D/C Disposition: pending Other Info: k and mag protocol WNL * Plan of Care - Marcy Emanuel RN - 02/26/2024 5:22 PM CDT [id number] Pt overall doing well. Up with SBA/GB/walker. Eating poorly, drinking adequately. No BM for many days. Senna and miralax given prn. Abd x-ray completed. Dulcolax supp given, hard stool present. Disimpacted a moderate amount of stool this evening. Will hold off on further bowel meds for now and see how things progress. Potassium and magnesium levels WNL. PT following. Plan for TCU at discharge, SWS working on facility. * Plan of Care - Braden Salinas RN - 02/26/2024 5:08 AM CDT Goal Outcome Evaluation: 02/25/24 [id number] Orientation: A/Ox4 Activity: A1GBW Diet/BS Checks: Reg Tele: none IV Access/Drains: L PIV SL Pain Management: c/o abd discomfort-Tylenol PRN 1x Abnormal VS/Results: VSS, exc HTN, RA Bowel/Bladder: bladder inc- dribbles at times, constipated-no BM this shift- scheduled Miralax,senna given Skin/Wounds: scattered bruising, trace ble ankles, preventive mepi to coccyx Consults: Hem/Onc/SW/PT D/C Disposition: pending Other Info: On K and Mag protocol. 2100-K 3.3, replacement given, recheck at 0500-K 4.1. Magnesium 1.9.-no replacement needed.Recheck K, and Magnesium tomorrow morning. * Plan of Care - Tenisha Vallejo RN - 02/25/2024 6:43 PM CDT Orientation: A&Ox4 Activity: A1 gb/w Diet/BS Checks: Reg, poor appetite, needs reminders to order meals Tele: N/A IV Access/Drains: L PIV SL Pain Management: Denies Abnormal VS/Results: HTN, mera at times. Uric acid 1.0. Creat 1.48. WBC 34.1 -SOB and wheezing improved today, lung sounds clear. Still having dry, tolliver cough but overall feelsbetter today -K and mg replacement protocol. Both replaced. Rechecks ordered for 1914 tonight Bowel/Bladder: Dribbles, incont at times, no BM since 02/14 Skin/Wounds: 1+ edema to BLE ankles, 1+ to R arm from previous IV infiltration, improving Consults: Hem/onc, SW, PT D/C Disposition: TBD, pending discharge destination * Plan of Care - Tucker Garza RN - 02/25/2024 6:17 AM CDT Orientation: A&Ox4. Activity: SBA with walker. Diet/BS Checks: Regular diet. Tele: N/a. IV Access/Drains: L PIV SL. Pain Management: Denies pain. Abnormal VS/Results: VSS on RA ex HTN. On mag & K protocol. Bowel/Bladder: Incont of bladder at times. No bowel movement this shift - senna & miralax given. Skin/Wounds: R arm +2 edema from infiltration Consults: SW, PT D/C Disposition: Pending clinical improvement. Other Info: -Woke up with SOB, trouble breathing with expiratory wheezing. Stopped IVF, IV lasix, albuterol neb, & chest xray completed. * Provider Notification - Gallito Whitehead MD - 02/25/2024 2:34 AM CDT Brief update: Wheezing and dyspnea tonight. Edema in ankles noted today Held IV fluids Additional 40 mg lasix now 2 view CXR Try PRN nebs, but anticipate a volume issue related to IVF for hypercalcemia Keep in mind pt did receive rasburicase the other day (allergic rxn possible, but seems late) Gallito Whitehead MD 2:36 AM * Plan of Care - Tenisha Vallejo RN - 02/24/2024 6:56 PM CDT Orientation: A&Ox4 Activity: A1 gb/w, in chair most of day Diet/BS Checks: Reg with room service Tele: Discontinued IV Access/Drains: New L PIV infusing NS at 50mL/hr Pain Management: Denies Abnormal VS/Results: HTN, mera at times. Uric acid 0.4. WBC 33 K and mg replacement protocol. AM rechecks ordered Bowel/Bladder: Dribbles, incont at times, no BM since 02/14. PRN senna given Skin/Wounds: Consults: Hem/onc, SW, PT D/C Disposition: TBD Other Info: -Senna given -1x dose of lasix given for wheezing, coughing, and 1+ edema to ankle * Provider Notification - Tenisha Vallejo RN - 02/24/2024 4:05 PM CDT MD Notification Notified Person: MD Notified Person Name: Joseph Notification Date/Time: 02/24/24 1600 Notification Interaction: Vocera page Purpose of Notification: Her iv infiltrated and her arm is pretty puffy. I placed an iv team consult. She is also reporting a new wheezy cough, swollen ankles, and her lungs sound wheezy. Kidney function still isnt great. What do you think? Orders Received: I will give her a dose of Lasix and scale back on IVF * Plan of Care - Tucker Garza RN - 02/24/2024 6:26 AM CDT Orientation: A&Ox4. Activity: SBA with walker. Diet/BS Checks: Regular diet. Tele: NSR, mera at times IV Access/Drains: PIV infusing NS @ 100 ml/hr. Pain Management: Denies pain. Abnormal VS/Results: VSS on RA ex HTN. On mag & K protocol. Mag recheck in range - recheck in AM. Bowel/Bladder: Incont of bladder at times. No bowel movement this shift - senna given. Skin/Wounds: WDL Consults: SW, PT D/C Disposition: Pending clinical improvement. * Provider Notification - Tenisha Vallejo RN - 02/23/2024 7:10 PM CDT MD Notification Notified Person: MD Notified Person Name: Dr. Rayliseth Notification Date/Time: 02/23/241850 Notification Interaction: Vocera page Purpose of Notification: Are you wanting me to do another mag infusion? I did one this afternoon and am awaiting the recheck level Orders Received: No need to repeat right now Comments: Passed onto machinist 2nd shift to watch for the recheck level * Plan of Care - Tenisha Vallejo RN - 02/23/2024 6:54 PM CDT Orientation: A&Ox4 Activity: A1 gb/w Diet/BS Checks: Reg with room service Tele: NSR IV Access/Drains: R PIV infusing NS at 125mL/hr Pain Management: Denies Abnormal VS/Results: HTN, mera at times. K and mg replacement protocol. Mg replaced x1. Recheck pending Bowel/Bladder: Dribbles, can be incont of urine, cont of bowel Skin/Wounds: Scarring from previous back surgeries Consults: Hem/onc, SW, PT D/C Disposition: TBD * Plan of Care - Elly Alvarez RN - 02/23/2024 6:59 AM CDT Goal Outcome Evaluation: [id number] Orientation: A&O x4 Activity: A1 GBW Diet/BS Checks: reg Tele: NSR IV Access/Drains: PIV infusing NS at 125 mL/hr Pain Management: tylenol given x1 for headache Abnormal VS/Results: VSS on RA except HTN; On Mag and K+ protocols; Calcium 12.7, Creat 1.65, uric acid 3/9 Bowel/Bladder: continent; dribbling. Patient experiencing urinary frequency Skin/Wounds: scattered bruising, scab to back, blanchable redness to sacrum Consults: Hem/Onc, palliative D/C Disposition: pending Other Info: * Pharmacy-Admission Medication History - Dustin Fried RPH - 02/22/2024 10:48 PM CDT Pharmacist Admission Medication History Admission medication history is complete. The information provided in this note is only as accurateas the sources available at the time of the update. Information Source(s): Patient via in-person Pertinent Information: Patient has been hospitalized for past 3 days. She is uncertain if the medications she received there included her home medications. MAR from OSH not available. Changes made to [employer] medication list: Added: None Deleted: None Changed: None Allergies reviewed with patient and updates made in EHR: no Medication History Completed By: Dustin Fried RPH 02/22/2024 10:48 PM [employer] Med List Medication Sig Last Dose Acetaminophen 325 MG CAPS Take 325-650 mg by mouth every 4 hours as needed at PRN potassium chloride ER (K-TAB) 20 MEQ CR tablet Take 20 mEq by mouth rosuvastatin (CRESTOR) 20 MG tablet Take 20 mg by mouth daily documented in this encounter Plan of Treatment Scheduled Referrals Name Type Priority Associated Diagnoses Orde r Schedule Home Care Referral Referral Routine: Next available opening Tumor lysis syndrome Ordered: 02/29/2024 documented as of this encounter Goals Goal Patient Goal Type Associated Problems Recent Progress Patient-Stated? Author [facility] Care Plan MyC ECC SURG E[facility]OLL No Camille Torres documented as of this encounter Procedures Procedure Name Priority Date/Time Associated Diagnosis Comments URIC ACID Routine 02/29/2024 8:23 AM CDT MAGNESIUM Routine 02/29/2024 8:23 AM CDT IONIZED CALCIUM Routine 02/29/2024 8:23 AM CDT BASIC METABOLIC PANEL Routine 02/29/2024 8:23 AM CDT CBC WITH PLATELETS Routine 02/29/2024 8: 23 AM CDT URIC ACID Routine 02/28/2024 8:03 AM CDT MAGNESIUM Routine 02/28/2024 8:03 AM CDT IONIZED CALCIUM Routine 02/28/2024 8:03 AM CDT BASIC METABOLIC PANEL Routine 02/28/2024 8:03 AM CDT CBC WITH PLATELETS Routine 02/28/2024 8: 03 AM CDT PHOSPHORUS Routine 02/27/2024 9:31 AM CDT MAGNESIUM Add-On 02/27/2024 9:31 AM CDT BASIC METABOLIC PANEL Routine 02/27/2024 9:31 AM CDT CBC WITH PLATELETS Routine 02/27/2024 9: 31 AM CDT XR ABDOMEN 1 VIEW Routine 02/26/2024 1:4 8 PM CDT URIC ACID, RASBURICASE Routine 02/26/2024 11:01 AM CDT LACTATE DEHYDROGENASE Routine 02/26/2024 4:52 AM CDT POTASSIUM Timed 02/26/2024 4:52 AM CDT PHOSPHORUS Routine 02/26/2024 4:52 AM CDT MAGNESIUM Routine 02/26/2024 4:52 AM CDT BASIC METABOLIC PANEL Routine 02/26/2024 4:52 AM CDT CBC WITH PLATELETS Routine 02/26/2024 4: 52 AM CDT POTASSIUM Timed 02/25/2024 9:04 PM CDT MAGNESIUM Timed 02/25/2024 9:04 PM CDT URIC ACID, RASBURICASE Routine 02/25/2024 12:03 PM CDT LACTATE DEHYDROGENASE Routine 02/25/2024 12:03 PM CDT PHOSPHORUS STAT Add-on 02/25/2024 12:03 PM CDT MAGNESIUM Routine 02/25/2024 12:03 PM CDT IONIZED CALCIUM Routine 02/25/2024 12:03 PM CDT BASIC METABOLIC PANEL Routine 02/25/2024 12:03 PM CDT CBC WITH PLATELETS Routine 02/25/2024 12 :03 PM CDT XR CHEST 2 VIEWS Routine 02/25/2024 3:17 AM CDT URIC ACID, RASBURICASE Routine 02/24/2024 8:14 AM CDT MAGNESIUM Routine 02/24/2024 7:45 AM CDT BASIC METABOLIC PANEL Routine 02/24/2024 7:45 AM CDT CBC WITH PLATELETS Routine 02/24/2024 7: 45 AM CDT MAGNESIUM Timed 02/23/2024 11:27 PM CDT POTASSIUM Routine 02/23/2024 11:31 AM CDT MAGNESIUM Routine 02/23/2024 11:31 AM CDT URIC ACID, RASBURICASE Timed 02/23/2024 4:36 AM CDT LACTATE DEHYDROGENASE Timed 02/23/2024 4:36 AM CDT PHOSPHORUS Timed 02/23/2024 4:36 AM CDT COMPREHENSIVE METABOLIC PANEL Routine 02/23/2024 4:36 AM CDT IONIZED CALCIUM Timed 02/23/2024 4:36 AM CDT BASIC METABOLIC PANEL Timed 02/23/2024 4:36 AM CDT CBC WITH PLATELETS Routine 02/23/2024 4: 36 AM CDT documented in this encounter Results * (ABNORMAL) Ionized Calcium (02/29/2024 8:23 AM CDT) [facility] Calcium Ionized Whole Blood 6.8(H) 4.4 - 5.2 mg/dL 02/29/2024 8:36 AM CDT LABORATORY Blood STRUCTURE OF RIGHT UPPER LIMB / Unknown Venipuncture / Unknown 02/29/2024 8:23 AM CDT 02/29/2024 8:32 AM CDT Margarita Ruiz MD LAB - BLOOD ORDER JENNIFER LABORATORY [facility] [address], [address] [place] [address], [place] [phone] * Uric acid (02/29/2024 8:23 AM CDT) [facility] Uric Acid 3.5 2.4 - 5.7 mg/dL 02/29/2024 9:16 AM CDT LABORATORY Blood STRUCTURE OF RIGHT UPPER LIMB / Unknown Venipuncture / Unknown 02/29/2024 8:23 AM CDT 02/29/2024 8:32 AM CDT Margarita Ruiz MD LAB - BLOOD ORDER JENN[facility]ER LABORATORY [facility] [address], [address] [place] [address], [facility] [phone] * (ABNORMAL) CBC with platelets (02/29/2024 8:23 AM CDT) WBC Count 15.1(H) 4.0 - 11.0 10e3/uL [...] MD LAB - BLOOD ORDER [facility]ENN[facility] LABORAT[facility] [address], [address] [place] [address], [facility] [phone] * (ABNORMAL) Basic metabolic panel (02/29/2024 8:23 AM CDT) Sodium 137 135 - 145 mmol/L 02/29/2024 [...] 8.8 - 10.2 mg/dL 02/29/2024 9:17 AM CDT LABORATORY Glucose 117(H) 70 - 99 mg/dL 02/29/2024 9:17 AM T LABORATORY Blood STRUCTURE OF RIGHT UPPER LIMB / Unknown Venipuncture / Unknown 02/29/2024 8:23 AM CDT 02/29/2024 8:32 AM CDT Margarita Ruiz MD LAB - BLOOD ORDER JENNIFER LABORATORY [facility] [address], [address] [place] [address], [facility] [phone] * Magnesium (02/29/2024 8:23 AM CDT) Magnesium 1.8 1.7 - 2.3 mg/dL 02/29/2024 9:16 AM CDT LABORATORY Blood STRUCTURE OF RIGHT UPPER LIMB / Unknown Venipuncture / Unknown 02/29/2024 8:23 AM CDT 02/29/2024 8:32 AM CDT Margarita Ruiz MD LAB - BLOOD ORDER JENNIFER Performing Organization Address City/[facility]/ZIP Co de Phone Number LABORATORY [facility] [address], [address] [place] [address], [facility] [phone] * (ABNORMAL) CBC with platelets (02/28/2024 8:03 AM CDT) WBC Count 15.8(H) 4.0 - 11.0 10e3/uL 02/28/2024 8:35 AM CDT LABORATORY RBC Count 3.59(L) 3.80 - 5.20 10e6/uL 02/28/2024 8:35 AM CDT LABORATORY Hemoglobin 10.4(L) 11.7 - 15.7 g/dL 02/28/2024 8:35 AM CDT LABORATORY Hematocrit 32.5(L) 35.0 - 47.0 % 02/28/2024 8:35 AM CDT LABORATORY MCV 91 78 - 100 fL 02/28/2024 8:35 AM CDT LABORATORY MCH 29.0 26.5 - 33.0 pg 02/28/2024 8:35 AM CDT LABORATORY MCHC 32.0 31.5 - 36.5 g/dL 02/28/2024 8:35 AM CDT LABORATORY RDW 14.0 10.0 - 15.0 % 02/28/2024 8:35 AM CDT LABORATORY Platelet Count 138(L) 150 - 450 10e3/uL 02/28/2024 8:35 AM [facility] LABORATORY Blood STRUCTURE OF RIGHT UPPER LIMB / Unknown Venipuncture / Unknown 02/28/2024 8:03 AM CDT 02/28/2024 8:13 AM CDT Margarita Ruiz MD LAB - BLOOD ORDER JENNIFER LABORATORY [facility] [address], [address] [place] [address], [facility] [phone] * (ABNORMAL) Basic metabolic panel (02/28/2024 8:03 AM CDT) Sodium 138 135 - 145 mmol/L 02/28/2024 8:46 AM [facility]ORATORY Comment:Reference intervals for this test were updated on 06/13/2023 to more accurately reflect our healthy population. There may be differences in the flagging of prior results with similar values performed with this method. Interpretation of those prior results can be made in the context of the updated reference intervals. Potassium 3.7 3.4 - 5.3 mmol/L 02/28/2024 8:46 AM [facility] Chloride 99 98 - 107 mmol/L 02/28/2024 8:46 AM [facility] Carbon Dioxide (CO2) 32(H) 22 - 29 mmol/L 02/28/2024 8:46 AM [facility] Anion Gap 7 7 - 15 mmol/L 02/28/2024 8:46 AM [facility] Urea Nitrogen 27.0(H) 8.0 - 23.0 mg/dL 02/28/2024 8:46 AM [facility] Creatinine 1.80(H) 0.51 - 0.95 mg/dL 02/28/2024 8:46 AM [facility] GFR Estimate 27(L) >60 mL/min/1. 73m2 02/28/2024 8:46 AM [facility] Calcium 13.7(H) 8.8 - 10.2 mg/dL 02/28/2024 8:46 AM CDT LABORATORY Glucose 120(H) 70 - 99 mg/dL 02/28/2024 8:46 AM CDT LABORATORY Blood STRUCTURE OF RIGHT UPPER LIMB / Unknown Venipuncture / Unknown 02/28/2024 8:03 AM CDT 02/28/2024 8:13 AM CDT Margarita Ruiz MD LAB - BLOOD ORDER JENNIFER LABORATORY [facility] [address], [address] [place] [address], [place] [phone] * (ABNORMAL) Ionized Calcium (02/28/2024 8:03 AM CDT) Calcium Ionized Whole Blood 7.3(HH) 4.4 - 5.2 mg/dL 02/28/2024 8:43 AM CDT LABORATORY Blood STRUCTURE OF RIGHT UPPER LIMB / Unknown Venipuncture / Unknown 02/28/2024 8:03 AM CDT 02/28/2024 8:13 AM CDT Margarita Ruiz MD LAB - BLOOD ORDER JENNIFER [facility] [address], [address] [place] [address], [place] [phone] * Uric acid (02/28/2024 8:03 AM CDT) Uric Acid 3.4 2.4 - 5.7 mg/dL 02/28/2024 8:40 AM CDT LABORATORY Blood STRUCTURE OF RIGHT UPPER LIMB / Unknown Venipuncture / Unknown 02/28/2024 8:03 AM CDT 02/28/2024 8:13 AM CDT Margarita Ruiz MD LAB - BLOOD ORDER JENNIFER [facility] LABORATORY [facility] [address], [address] [place] [address], [facility] [phone] * Magnesium (02/28/2024 8:03 AM CDT) [facility] Magnesium 1.8 1.7 - 2.3 mg/dL 02/28/2024 8:46 AM CDT LABORATORY Blood STRUCTURE OF RIGHT UPPER LIMB / Unknown Venipuncture / Unknown 02/28/2024 8:03 AM CDT 02/28/2024 8:13 AM CDT Margarita Ruiz MD LAB - BLOOD ORDER JENNIFER LABORATORY [facility] [address], [address] [place] [address], [facility] [phone] * Magnesium (02/27/2024 9:31 AM CDT) [facility] Magnesium 1.9 1.7 - 2.3 mg/dL 02/27/2024 11:07 AM CDT LABORATORY Blood STRUCTURE OF RIGHT UPPER LIMB / Unknown Venipuncture / Unknown 02/27/2024 9:31 AM CDT 02/27/2024 9:39 AM CDT Margarita Ruiz MD LAB - BLOOD ORDER JENNIFER LABORATORY [facility] [address], [address] [place] [address], [facility] [phone] * (ABNORMAL) CBC with platelets (02/27/2024 9:31 AM CDT) [facility] WBC Count 16.7(H) 4.0 - 11.0 10e3/uL 02/27/2024 9:42 AM CDT LABORATORY RBC Count 3.50(L) 3.80 - 5.20 10e6/uL 02/27/2024 9:42 AM CDT LABORATORY Hemoglobin 10.0(L) 11.7 - 15.7 g/dL 02/27/2024 9:42 AM CDT LABORATORY Hematocrit 31.4(L) 35.0 - 47.0 % 02/27/2024 9:42 AM CDT LABORATORY MCV 90 78 - 100 fL 02/27/2024 9:42 AM CDT LABORATORY MCH 28.6 26.5 - 33.0 pg 02/27/2024 9:42 AM CDT LABORATORY MCHC 31.8 31.5 - 36.5 g/dL 02/27/2024 9:42 AM CDT LABORATORY RDW 14.2 10.0 - 15.0 % 02/27/2024 9:42 AM CDT LABORATORY Platelet Count 159 150 - 450 10e3/uL 02/27/2024 9:42 AM CDT LABORATORY Blood STRUCTURE OF RIGHT UPPER LIMB / Unknown Venipuncture / Unknown 02/27/2024 9:31 AM CDT 02/27/2024 9:39 AM CDT Margarita Ruiz MD LAB - BLOOD ORDER [facility] [address], [address] [place] [address], [facility] [phone] * (ABNORMAL) Basic metabolic panel (02/27/2024 9:31 AM CDT) [facility] 140 135 - 145 mmol/L 02/27/2024 10:23 AM [facility] Comment:Reference intervals for this test were updated on 06/13/2023 to more accurately reflect our healthy population. There may be differences in the flagging of prior results with similar values performed with this method. Interpretation of those prior results can be made in the context of the updated reference intervals. Potassium 3.8 3.4 - 5.3 mmol/L 02/27/2024 10:23 AM CDT LABORATORY Chloride 100 98 - 107 mmol/L 02/27/2024 10:[facility] Carbon Dioxide (CO2) 29 22 - 29 mmol/L 02/27/2024 10:23 AM CDT LABORATORY Anion Gap 11 7 - 15 mmol/L 02/27/2024 10:23 AM CDT LABORATORY Urea Nitrogen 24.8(H) 8.0 - 23.0 mg/dL 02/27/2024 10:23 AM CDT LABORATORY Creatinine 1.67(H) 0.51 - 0.95 mg/dL 02/27/2024 10:23 AM CDT LABORATORY GFR Estimate 30(L) >60 mL/min/1. 73m2 02/27/2024 10:23 AM CDT LABORATORY Calcium 13.8(H) 8.8 - 10.2 mg/dL 02/27/2024 10:23 AM CDT LABORATORY Glucose 138(H) 70 - 99 mg/dL 02/27/2024 10:23 AM CDT LABORATORY Blood STRUCTURE OF RIGHT UPPER LIMB / Unknown Venipuncture / Unknown 02/27/2024 9:31 AM CDT 02/27/2024 9:39 AM CDT Margarita Ruiz MD LAB - BLOOD ORDER JENNIFER [facility] [address], [address] [place] [address], [facility] [phone] * Phosphorus (02/27/2024 9:31 AM CDT) [facility] Phosphorus 3.6 2.5 - 4.5 mg/dL 02/27/2024 7:52 PM CDT LABORATORY Blood STRUCTURE OF RIGHT UPPER LIMB / Unknown Venipuncture / Unknown 02/27/2024 9:31 AM CDT 02/27/2024 9:39 AM CDT Margarita Ruiz MD LAB - BLOOD ORDER JENNIFER [facility] [address], [address] [place] [address], [place] [phone] * XR Abdomen 1 View (02/26/2024 1:48 [...] Uric acid, Rasburicase (02/26/2024 11:01 AM CDT) Uric Acid, Rasburicase 1.8(L) 2.4 - 5.7 mg/dL 02/26/2024 11:35 AM CDT LABORATORY Comment:Uric Acid specimen d rawn and processed following the post-Rasburicase monitoring protocol. Blood STRUCTURE OF RIGHT UPPER LIMB / Unknown Venipuncture / Unknown 02/26/2024 11:01 AM CDT 02/26/2024 11:10 AM CDT Gallito Whitehead MD LAB - BLOOD ORDERABL ES LABORATORY [facility] [address], [address] [place] [address], [facility] [phone] * (ABNORMAL) CBC with platelets (02/26/2024 4:52 AM CDT) WBC Count 21.2(H) 4.0 - 11.0 10e3/uL 02/26/2024 5:00 AM CDT LABORATORY RBC Count 3.32(L) 3.80 - 5.20 10e6/uL 02/26/2024 5:00 AM CDT LABORATORY Hemoglobin 9.7(L) 11.7 - 15.7 g/dL 02/26/2024 5:00 AM CDT LABORATORY Hematocrit 29.8(L) 35.0 - 47.0 % 02/26/2024 5:00 AM CDT LABORATORY MCV 90 78 - 100 fL 02/26/2024 5:00 AM CDT LABORATORY MCH 29.2 26.5 - 33.0 pg 02/26/2024 5:00 AM CDT LABORATORY MCHC 32.6 31.5 - 36.5 g/dL 02/26/2024 5:00 AM CDT LABORATORY RDW 13.9 10.0 - 15.0 % 02/26/2024 5:00 AM CDT LABORATORY Platelet Count 170 150 - 450 10e3/uL 02/26/2024 5:00 AM CDT LABORATORY Blood STRUCTURE OF RIGHT HAND / Unknown Venipuncture / Unknown 02/26/2024 4:52 AM CDT 02/26/2024 4:58 AM CDT [place] Pham Ruiz MD LAB - BLOOD ORDER JENNIFER LABORATORY [facility] [address], [address] [place] [address], [facility] [phone] * (ABNORMAL) Basic metabolic panel (02/26/2024 4:52 AM CDT) Pathologist [facility] [place] Sodium 138 135 - 145 mmol/L 02/26/2024 5:18 AM CDT LABORATORY Comment:Reference intervals for this test were updated on 06/13/2023 to more accurately reflect our healthy population. There may be differences in the flagging of prior results with similar values performed with this method. Interpretation of those prior results can be made in the context of the updated reference intervals. Potassium 4.1 3.4 - 5.3 mmol/L 02/26/2024 5:18 AM CDT LABORATORY Chloride 100 98 - 107 mmol/L 02/26/2024 5:18 AM CDT LABORATORY Carbon Dioxide (CO2) 28 22 - 29 mmol/L 02/26/2024 5:18 AM CDT LABORATORY Anion Gap 10 7 - 15 mmol/L 02/26/2024 5:18 AM CDT LABORATORY Urea Nitrogen 24.3(H) 8.0 - 23.0 mg/dL 02/26/2024 5:18 AM CDT LABORATORY Creatinine 1.50(H) 0.51 - 0.95 mg/dL 02/26/2024 5:18 AM CDT LABORATORY GFR Estimate 34(L) >60 mL/min/1. 73m2 02/26/2024 5:18 AM CDT LABORATORY Calcium 13.2(H) 8.8 - 10.2 mg/dL 02/26/2024 5:18 AM CDT LABORATORY Glucose 156(H) 70 - 99 mg/dL 02/26/2024 5:18 AM CDT LABORATORY Blood STRUCTURE OF RIGHT HAND / Unknown Venipuncture / Unknown 02/26/2024 4:52 AM CDT 02/26/2024 4:58 AM CDT Margarita Pham Ruiz MD LAB - BLOOD ORDER JENNIFER LABORATORY [facility] [address], [address] [place] [address], [facility] [phone] * Potassium (02/26/2024 4:52 AM CDT) [facility] Potassium 4.1 3.4 - 5.3 mmol/L 02/26/2024 5:17 AM CDT LABORATORY Blood STRUCTURE OF RIGHT HAND / Unknown Venipuncture / Unknown 02/26/2024 4:52 AM CDT 02/26/2024 4:57 AM CDT Margarita Ruiz MD LAB - BLOOD ORDER JENNIFER LABORATORY [facility] [address], [address] [place] [address], [place] [phone] * Magnesium (02/26/2024 4:52 AM CDT) Magnesium 1.9 1.7 - 2.3 mg/dL 02/26/2024 5:17 AM CDT LABORATORY Blood STRUCTURE OF RIGHT HAND / Unknown Venipuncture / Unknown 02/26/2024 4:52 AM CDT 02/26/2024 4:57 AM CDT Margarita Ruiz MD LAB - BLOOD ORDER JENNIFER LABORATORY [facility] [address], [address] [place] [address], [place] [phone] * Lactate Dehydrogenase (02/26/2024 4:52 AM CDT) Lactate Dehydrogenase 207 0 - 250 U/L 02/26/2024 5:17 AM CDT LABORATORY Blood STRUCTURE OF RIGHT HAND / Unknown Venipuncture / Unknown 02/26/2024 4:52 AM CDT 02/26/2024 4:57 AM CDT Margarita Ruiz MD LAB - BLOOD ORDER JENNIFER LABORATORY [facility] [address], [address] [place] [address], [place] [phone] * Phosphorus (02/26/2024 4:52 AM CDT) Phosphorus 3.5 2.5 - 4.5 mg/dL 02/26/2024 5:17 AM CDT LABORATORY Blood STRUCTURE OF RIGHT HAND / Unknown Venipuncture / Unknown 02/26/2024 4:52 AM CDT 02/26/2024 4:57 AM CDT Margarita Ruiz MD LAB - BLOOD ORDER JENNIFER LABORATORY [facility] [address], [address] [place] [address], [facility] [phone] * (ABNORMAL) Potassium (02/25/2024 9:04 PM CDT) Potassium 3.3(L) 3.4 - 5.3 mmol/L 02/25/2024 9:56 PM CDT LABORATORY Blood STRUCTURE OF RIGHT HAND / Unknown Venipuncture / Unknown 02/25/2024 9:04 PM CDT 02/25/2024 9:31 PM CDT Margarita Riuz MD LAB - BLOOD ORDER JENNIFER Performing Organization Address City/[facility]/ZIP Co de Phone Number LABORATORY [facility] [address], [address] [address], [facility] [phone] * Magnesium (02/25/2024 9:04 PM CDT) Magnesium 1.9 1.7 - 2.3 mg/dL 02/25/2024 9:56 PM CDT LABORATORY Blood STRUCTURE OF RIGHT HAND / Unknown Venipuncture / Unknown 02/25/2024 9:04 PM CDT 02/25/2024 9:31 PM CDT Margarita Ruiz MD LAB - BLOOD ORDER JENNIFER LABORATORY [facility] [address], [address] [place] [address], [facility] [phone] * Phosphorus (02/25/2024 12:03 PM CDT) Phosphorus 2.9 2.5 - 4.5 mg/dL 02/25/2024 4:47 PM CDT LABORATORY Blood STRUCTURE OF RIGHT HAND / Unknown Venipuncture / Unknown 02/25/2024 12:03 PM CDT 02/25/2024 12:31 PM CDT Margarita Ruiz MD LAB - BLOOD ORDER JENNIFER LABORATORY [facility] [address], [address] [place] [address], [facility] [phone] * (ABNORMAL) CBC with platelets (02/25/2024 12:03 PM CDT) WBC Count 34.1(H) 4.0 - 11.0 10e3/uL 02/25/2024 12:34 PM CDT LABORATORY RBC Count 3.62(L) 3.80 - 5.20 10e6/uL 02/25/2024 12:34 PM CDT LABORATORY Hemoglobin 10.4(L) 11.7 - 15.7 g/dL 02/25/2024 12:34 PM CDT LABORATORY Hematocrit 32.7(L) 35.0 - 47.0 % 02/25/2024 12:34 PM CDT LABORATORY MCV 90 78 - 100 fL 02/25/2024 12:34 PM CDT LABORATORY MCH 28.7 26.5 - 33.0 pg 02/25/2024 12:34 PM CDT LABORATORY MCHC 31.8 31.5 - 36.5 g/dL 02/25/2024 12:34 PM CDT LABORATORY RDW 13.9 10.0 - 15.0 % 02/25/2024 12:34 PM CDT LABORATORY Platelet Count 194 150 - 450 10e3/uL 02/25/2024 12:34 PM CDT LABORATORY Blood STRUCTURE OF RIGHT HAND / Unknown Venipuncture / Unknown 02/25/2024 12:03 PM CDT 02/25/2024 12:31 PM CDT Margarita Ruiz MD LAB - BLOOD ORDER JENNIFER LABORATORY [facility] [address], [address] [place] [address], [facility] [phone] * (ABNORMAL) Basic metabolic panel (02/25/2024 12:03 PM CDT) [facility] Sodium 137 135 - 145 mmol/L 02/25/2024 12:58 PM [facility] Comment:Reference intervals for this test were updated on 06/13/2023 to more accurately reflect our healthy population. There may be differences in the flagging of prior results with similar values performed with this method. Interpretation of those prior results can be made in the context of the updated reference intervals. Potassium 3.0(L) 3.4 - 5.3 mmol/L 02/25/2024 12:58 PM [facility] Chloride 96(L) 98 - 107 mmol/L 02/25/2024 12:58 PM T LABORATORY Carbon Dioxide (CO2) 29 22 - 29 mmol/L 02/25/2024 12:58 PM [facility] Anion Gap 12 7 - 15 mmol/L 02/25/2024 12:58 PM [facility] Urea Nitrogen 23.2(H) 8.0 - 23.0 mg/dL 02/25/2024 12:58 PM [facility] Creatinine 1.48(H) 0.51 - 0.95 mg/dL 02/25/2024 12:58 PM [facility] GFR Estimate 35(L) >60 mL/min/1. 73m2 02/25/2024 12:58 PM [facility] Calcium 12.8(H) 8.8 - 10.2 mg/dL 02/25/2024 12:58 PM [facility] Glucose 182(H) 70 - 99 mg/dL 02/25/2024 12:58 PM [facility] Blood STRUCTURE OF RIGHT HAND / Unknown Venipuncture / Unknown 02/25/2024 12:03 PM CDT 02/25/2024 12:31 PM CDT Margarita Ruiz MD LAB - BLOOD ORDER JENNIFER LABORATORY [facility] [address], [address] [place] [address], [facility] [phone] * (ABNORMAL) Ionized Calcium (02/25/2024 12:03 PM CDT) Calcium Ionized Whole Blood 6.7(H) 4.4 - 5.2 mg/dL 02/25/2024 12:31 PM CDT LABORATORY Blood STRUCTURE OF RIGHT HAND / Unknown Venipuncture / Unknown 02/25/2024 12:03 PM CDT 02/25/2024 12:29 PM CDT Margarita Ruiz MD LAB - BLOOD ORDER JENNIFER LABORATORY [facility] [address], [address] [place] [address], [facility] [phone] * (ABNORMAL) Lactate Dehydrogenase (02/25/2024 12:03 PM CDT) Lactate Dehydrogenase 308(H) 0 - 250 U/L 02/25/2024 12:58 PM CDT LABORATORY Blood STRUCTURE OF RIGHT HAND / Unknown Venipuncture / Unknown 02/25/2024 12:03 PM CDT 02/25/2024 12:31 PM CDT Margarita Ruiz MD LAB - BLOOD ORDER JENNIFER LABORATORY [facility] [address], [address] [place] [address], [facility] [phone] * (ABNORMAL) Magnesium (02/25/2024 12:03 PM CDT) Magnesium 1.5(L) 1.7 - 2.3 mg/dL 02/25/2024 12:58 PM CDT LABORATORY Blood STRUCTURE OF RIGHT HAND / Unknown Venipuncture / Unknown 02/25/2024 12:03 PM CDT 02/25/2024 12:31 PM CDT Margarita Ruiz MD LAB - BLOOD ORDER JENNIFER LABORATORY [facility] [address], [address] [place] [address], [place] [phone] * (ABNORMAL) Uric acid, Rasburicase (02/25/2024 12:03 PM CDT) Uric Acid, Rasburicase 1.0(L) 2.4 - 5.7 mg/dL 02/25/2024 12:51 PM CDT LABORATORY Comment:Uric Acid specimen d rawn and processed following the post-Rasburicase monitoring protocol. Blood STRUCTURE OF RIGHT HAND / Unknown Venipuncture / Unknown 02/25/2024 12:03 PM CDT 02/25/2024 12:29 PM CDT Gallito Whitehead MD LAB - BLOOD ORDERABL ES Performing Organization Address City/[facility]/ZIP Co de Phone Number LABORATORY [facility] [address], [address] [place] [address], [place] [phone] * XR Chest 2 Views (02/25/2024 3:17 [...] CDT EXAM: XR CHEST 2 VIEWS LOCATION: [facility] DATE: 02/25/2024 INDICATION: Shortness of breath. Hypercalcemia with fluid, but also got Rasburicase recently. COMPARISON: CT chest, abdomen and pelvis with IV contrast 01/03/2024. Procedure Note Antoinette Bobby MD - 02/25/2024 EXAM: XR CHEST 2 VIEWS LOCATION: [facility] DATE: 02/25/2024 INDICATION: Shortness [...] IMG DIAGNOSTIC IMAGI NG ORDERABLES * (ABNORMAL) Uric acid, Rasburicase (02/24/2024 8:14 AM CDT) Uric Acid, Rasburicase 0.4(L) 2.4 - 5.7 mg/dL 02/24/2024 8:49 AM CDT LABORATORY Comment:Uric Acid specimen d rawn and processed following the post-Rasburicase monitoring protocol. Blood STRUCTURE OF LEFT HAND / Unknown Venipuncture / Unknown 02/24/2024 8:14 AM CDT 02/24/2024 8:24 AM CDT Gallito Whitehead MD LAB - BLOOD ORDERABL ES LABORATORY [facility] [address], [address] [place] [address], [facility] [phone] * Magnesium (02/24/2024 7:45 AM CDT) Pathologist [facility] [place] Magnesium 1.7 1.7 - 2.3 mg/dL 02/24/2024 8:19 AM CDT LABORATORY Blood STRUCTURE OF LEFT HAND / Unknown Venipuncture / Unknown 02/24/2024 7:45 AM CDT 02/24/2024 8:01 AM CDT Margarita Ruiz MD LAB - BLOOD ORDER JENNIFER LABORATORY [facility] [address], [address] [place] [address], [facility] [phone] * (ABNORMAL) CBC with platelets (02/24/2024 7:45 AM CDT) WBC Count 33.0(H) 4.0 - 11.0 10e3/uL 02/24/2024 8:08 AM CDT LABORATORY RBC Count 3.19(L) 3.80 - 5.20 10e6/uL 02/24/2024 8:08 AM CDT LABORATORY Hemoglobin 9.3(L) 11.7 - 15.7 g/dL 02/24/2024 8:08 AM CDT LABORATORY Hematocrit 28.7(L) 35.0 - 47.0 % 02/24/2024 8:08 AM CDT LABORATORY MCV 90 78 - 100 fL 02/24/2024 8:08 AM CDT LABORATORY MCH 29.2 26.5 - 33.0 pg 02/24/2024 8:08 AM CDT LABORATORY MCHC 32.4 31.5 - 36.5 g/dL 02/24/2024 8:08 AM CDT LABORATORY RDW 13.7 10.0 - 15.0 % 02/24/2024 8:08 AM CDT LABORATORY Platelet Count 173 150 - 450 10e3/uL 02/24/2024 8:08 AM CDT LABORATORY Blood STRUCTURE OF LEFT HAND / Unknown Venipuncture / Unknown 02/24/2024 7:45 AM CDT 02/24/2024 8:01 AM CDT Margarita Ruiz MD LAB - BLOOD ORDER JENNIFER LABORATORY [facility] [address], [address] [place] [address], [facility] [phone] * (ABNORMAL) Basic metabolic panel (02/24/2024 7:45 AM CDT) Sodium 138 135 - 145 mmol/L 02/24/2024 8:36 AM [facility] Comment:Reference intervals for this test were updated on 06/13/2023 to more accurately reflect our healthy population. There may be differences in the flagging of prior results with similar values performed with this method. Interpretation of those prior results can be made in the context of the updated reference intervals. Potassium 3.6 3.4 - 5.3 mmol/L 02/24/2024 8:36 AM [facility] Chloride 103 98 - 107 mmol/L 02/24/2024 8:36 AM [facility] Carbon Dioxide (CO2) 24 22 - 29 mmol/L 02/24/2024 8:36 AM [facility] Anion Gap 11 7 - 15 mmol/L 02/24/2024 8:36 AM T LABORATORY Urea Nitrogen 25.5(H) 8.0 - 23.0 mg/dL 02/24/2024 8:36 AM [facility] Creatinine 1.38(H) 0.51 - 0.95 mg/dL 02/24/2024 8:36 AM T LABORATORY GFR Estimate 38(L) >60 mL/min/1. 73m2 02/24/2024 8:36 AM T LABORATORY Calcium 12.6(H) 8.8 - 10.2 mg/dL 02/24/2024 8:36 AM [facility] Glucose 121(H) 70 - 99 mg/dL 02/24/2024 8:36 AM [facility] Blood STRUCTURE OF LEFT HAND / Unknown Venipuncture / Unknown 02/24/2024 7:45 AM CDT 02/24/2024 8:00 AM CDT Margarita Ruiz MD LAB - BLOOD ORDER JENNIFER LABORATORY [facility] [address], [address] [place] [address], [facility] [phone] * Magnesium (02/23/2024 11:27 PM CDT) Magnesium 1.8 1.7 - 2.3 mg/dL 02/23/2024 11:57 PM CDT LABORATORY Blood STRUCTURE OF LEFT HAND / Unknown Venipuncture / Unknown 02/23/2024 11:27 PM CDT 02/23/2024 11:37 PM CDT Margarita Ruiz MD LAB - BLOOD ORDER JENNIFER Performing Organization Address City/[facility]/ZIP Co de Phone Number LABORATORY [facility] [address], [address] [place] [address], [facility] [phone] * Potassium (02/23/2024 11:31 AM CDT) Potassium 3.8 3.4 - 5.3 mmol/L 02/23/2024 12:08 PM CDT LABORATORY Blood STRUCTURE OF LEFT HAND / Unknown Venipuncture / Unknown 02/23/2024 11:31 AM CDT 02/23/2024 11:45 AM CDT Margarita Ruiz MD LAB - BLOOD ORDER JENNIFER LABORATORY [facility] [address], [address] [place] [address], [facility] [phone] * (ABNORMAL) Magnesium (02/23/2024 11:31 AM CDT) Magnesium 1.3(L) 1.7 - 2.3 mg/dL 02/23/2024 12:08 PM CDT LABORATORY Blood STRUCTURE OF LEFT HAND / Unknown Venipuncture / Unknown 02/23/2024 11:31 AM CDT 02/23/2024 11:45 AM CDT Margarita Ruiz MD LAB - BLOOD ORDER JENNIFER LABORATORY [facility] [address], [address] [address], [place] [phone] * Lactate Dehydrogenase (02/23/2024 4:36 AM CDT) Lactate Dehydrogenase 235 0 - 250 U/L 02/23/2024 5:17 AM CDT LABORATORY Blood STRUCTURE OF RIGHT UPPER LIMB / Unknown Venipuncture / Unknown 02/23/2024 4:36 AM CDT 02/23/2024 4:53 AM CDT Gallito Whitehead MD LAB - BLOOD ORDERABL ES Performing Organization Address City/[facility]/ZIP Co de Phone Number LABORATORY [facility] [address], [address] [address], [place] [phone] * (ABNORMAL) Ionized Calcium (02/23/2024 4:36 AM CDT) Calcium Ionized Whole Blood 6.9(H) 4.4 - 5.2 mg/dL 02/23/2024 4:45 AM CDT LABORATORY Blood STRUCTURE OF RIGHT UPPER LIMB / Unknown Venipuncture / Unknown 02/23/2024 4:36 AM CDT 02/23/2024 4:42 AM CDT Gallito Whitehead MD LAB - BLOOD ORDERABL ES LABORATORY [facility] [address], [address] [place] [address], [place] [phone] * Phosphorus (02/23/2024 4:36 AM CDT) Phosphorus 2.8 2.5 - 4.5 mg/dL 02/23/2024 5:17 AM CDT LABORATORY Blood STRUCTURE OF RIGHT UPPER LIMB / Unknown Venipuncture / Unknown 02/23/2024 4:36 AM CDT 02/23/2024 4:53 AM CDT Gallito Whitehead MD LAB - BLOOD ORDERABL ES LABORATORY [facility] [address], [address] [place] [address], [facility] [phone] * (ABNORMAL) Basic metabolic panel (02/23/2024 4:36 AM CDT) Sodium [...] 3.4 - 5.3 mmol/L 02/23/2024 5:17 [facility] Chloride 101 98 - 107 mmol/L 02/23/2024 5:17 AM CDT LABORATORY Carbon Dioxide (CO2) 25 22 - 29 mmol/L 02/23/2024 5:17 AM CDT LABORATORY Anion Gap 11 7 - 15 mmol/L 02/23/2024 5:17 AM CDT LABORATORY Urea Nitrogen 31.3(H) 8.0 - 23.0 mg/dL 02/23/2024 5:17 AM CDT LABORATORY Creatinine 1.65(H) 0.51 - 0.95 mg/dL 02/23/2024 5:17 AM CDT LABORATORY GFR Estimate 30(L) >60 mL/min/1. 73m2 02/23/2024 5:17 AM CDT LABORATORY Calcium 12.7(H) 8.8 - 10.2 mg/dL 02/23/2024 5:17 AM CDT LABORATORY Glucose 124(H) 70 - 99 mg/dL 02/23/2024 5:17 AM CDT LABORATORY Blood STRUCTURE OF RIGHT UPPER LIMB / Unknown Venipuncture / Unknown 02/23/2024 4:36 AM CDT 02/23/2024 4:53 AM CDT Gallito Whitehead MD LAB - BLOOD ORDERABL ES LABORATORY [facility] [address], [address] [place] [address], [facility] [phone] * Uric acid, Rasburicase lab to be drawn 4 hours post-infusion on day 1 (02/23/2024 4:36 AM CDT) Uric Acid, Rasburicase 3.9 2.4 - 5.7 mg/dL 02/23/2024 5:01 AM CDT LABORATORY Comment:Uric Acid specimen d rawn and processed following the post-Rasburicase monitoring protocol. Blood STRUCTURE OF RIGHT UPPER LIMB / Unknown Venipuncture / Unknown 02/23/2024 4:36 AM CDT 02/23/2024 4:42 AM CDT Gallito Whitehead MD LAB - BLOOD ORDERABL ES LABORATORY [facility] [address], [address] [place] [address], [place] [phone] * (ABNORMAL) CBC with platelets (02/23/2024 4:36 AM CDT) WBC Count 27.9(H) 4.0 - 11.0 10e3/uL 02/23/2024 4:58 AM CDT LABORATORY RBC Count 3.46(L) 3.80 - 5.20 10e6/uL 02/23/2024 4:58 AM CDT LABORATORY Hemoglobin 10.0(L) 11.7 - 15.7 g/dL 02/23/2024 4:58 AM CDT LABORATORY Hematocrit 30.8(L) 35.0 - 47.0 % 02/23/2024 4:58 AM CDT LABORATORY MCV 89 78 - 100 fL 02/23/2024 4:58 AM CDT LABORATORY MCH 28.9 26.5 - 33.0 pg 02/23/2024 4:58 AM CDT LABORATORY MCHC 32.5 31.5 - 36.5 g/dL 02/23/2024 4:58 AM CDT LABORATORY RDW 13.6 10.0 - 15.0 % 02/23/2024 4:58 AM CDT LABORATORY Platelet Count 173 150 - 450 10e3/uL 02/23/2024 4:58 AM CDT LABORATORY Blood STRUCTURE OF RIGHT UPPER LIMB / Unknown Venipuncture / Unknown 02/23/2024 4:36 AM CDT 02/23/2024 4:53 AM CDT Gallito Whitehead MD LAB - BLOOD ORDERABL ES LABORATORY [facility] [address], [address] [place] [address], [facility] [phone] * (ABNORMAL) Comprehensive metabolic panel (02/23/2024 4:36 AM CDT) [facility] Signature Sodium 137 135 - 145 mmol/L 02/23/2024 [...] 7 - 15 mmol/L 02/23/2024 5:17 AM [facility] Urea Nitrogen 31.3(H) 8.0 - 23.0 mg/dL 02/23/2024 5:17 AM [facility] Creatinine 1.65(H) 0.51 - 0.95 mg/dL 02/23/2024 5:17 AM [facility] GFR Estimate 30(L) >60 mL/min/1. 73m2 02/23/2024 5:17 AM [facility] Calcium 12.7(H) 8.8 - 10.2 mg/dL 02/23/2024 5:17 AM [facility] Chloride 101 98 - 107 mmol/L 02/23/2024 5:17 AM [facility] Glucose 124(H) 70 - 99 mg/dL 02/23/2024 5:17 AM [facility] Alkaline Phosphatase 83 40 - 150 U/L 02/23/2024 5:17 AM [facility] AST 14 0 - 45 U/L 02/23/2024 5:17 AM [facility] Comment:Reference intervals for this test were updated on 02/27/2023 to more accurately reflect our healthy population. There may be differences in the flagging of prior results with similar values performed with this method. Interpretation of those prior results can be made in the context of the updated reference intervals. ALT 6 0 - 50 U/L 02/23/2024 5:17 AM [facility] Comment:Reference intervals for this test were updated on 02/27/2023 to more accurately reflect our healthy population. There may be differences in the flagging of prior results with similar values performed with this method. Interpretation of those prior results can be made in the context of the updated reference intervals. Protein Total 4.9(L) 6.4 - 8.3 g/dL 02/23/2024 5:17 AM [facility] Albumin 3.0(L) 3.5 - 5.2 g/dL 02/23/2024 5:17 AM [facility] Bilirubin Total 0.2 <=1.2 mg/dL 02/23/2024 5:17 AM [facility] Blood STRUCTURE OF RIGHT UPPER LIMB / Unknown Venipuncture / Unknown 02/23/2024 4:36 AM CDT 02/23/2024 4:53 AM CDT Gallito Whitehead MD LAB - BLOOD ORDERABL ES LABORATORY [facility] [address], [address] [place] [address], [place] [phone] documented in this encounter Visit Diagnoses Diagnosis Constipation, unspecified constipation type- 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 Maximum acetaminophen dose from all sources = 75 mg/kg/day not to exceed 4 grams/day. acetaminophen (TYLENOL) tablet 650 mg 650 mg, Oral, EVERY 4 HOURS PRN, mild pain, other, and adjunct with moderate or severe pain or per patient request, Starting on Gwendolyn 02/22/24 at 2334, Alternate with ibuprofen if ordered. Maximum acetaminophen dose from all sources = 75 mg/kg/day not to exceed 4 grams/day. $Given 02/29/2024 3:44 AM CDT 650 mg $Given 02/25/2024 11:55 PM CDT 650 mg $Given 02/23/2024 6:54 AM CDT 650 mg albuterol (PROVENTIL) neb solution 2.5 mg 2.5 mg, Nebulization, EVERY 2 HOURS PRN, shortness of breath, Starting on Mon02/25/24 at 0233 $Given 02/28/2024 11:33 AM CDT 2.5 mg $Given 02/25/2024 7:04 PM CDT 2.5 mg $Given 02/25/2024 2:39 AM CDT 2.5 mg allopurinol (ZYLOPRIM) tablet 100 mg 100 mg, Oral, 3 TIMES DAILY, First dose on Mon02/23/24 at 0900, On hold since 02/24/2024 at 1727 until manually unheld $Given 02/24/2024 3:51 PM CDT 100 m g $Given 02/24/2024 11:00 AM CDT 100 mg $Given 02/23/2024 9:46 PM CDT 100 mg allopurinol (ZYLOPRIM) tablet 100 mg 100 mg, Oral, 3 TIMES DAILY, First dose (after last modification) on Mon03/01/24 at 0900 allopurinol (ZYLOPRIM) tablet 300 mg 300 mg, Oral, DAILY, First dose on Mon02/27/24 at 1700 $Given 02/29/2024 9:06 AM CDT 300 mg $Given 02/28/2024 8:56 AM CDT 300 mg $Given 02/27/2024 5:46 PM CDT 300 mg bisacodyl (DULCOLAX) suppository 10 mg 10 mg, Rectal, DAILY PRN, constipation, Starting on Mon02/22/24 at 2335, IF more than 1 constipation PRN medication is ordered, administer step-garcia as indicated, moving to the next step ONLY if prior step ineffective. Step 1: senna-docusate (SENOKOT-S; PERICOLACE) OR bisacodyl (DULCOLAX) EC tablet Step 2: polyethylene glycol (MIRALAX/GLYCOLAX) Step 3: bisacodyl (DULCOLAX) suppository Step 4: enema Hold for loose stools. $Given 02/26/2024 3:25 PM CDT 10 mg dexAMETHasone (DECADRON) injection 10 mg 10 mg, Intravenous, ONCE, Administer over 1 Minutes, On Mon02/28/24 at 1100, For 1 dose $Given 02/28/2024 11:05 AM CDT 10 mg enoxaparin ANTICOAGULANT (LOVENOX) injection 30 mg 30 mg, Subcutaneous, EVERY 24 HOURS, First dose (after last modification) on Mon02/27/24 at 0800, HOLD if platelet count falls below 50% of baseline or less than 100,000/??L and notify provider. Dose adjusted per renal dosing policy. Estimated CrCl = <30 mL/min. $Given 02/29/2024 9:06 AM CDT 30 mg $Given 02/28/2024 9:00 AM CDT 30 mg $Given 02/27/2024 7:49 AM CDT 30 mg enoxaparin ANTICOAGULANT (LOVENOX) injection 40 mg 40 mg, Subcutaneous, EVERY 24 HOURS, First dose on Mon02/23/24 at 0800, HOLD if platelet count falls below 50% of baseline or less than 100,000/??L and notify provider. $Given 02/26/2024 8:07 AM CDT 40 mg $Given 02/25/2024 9:40 AM CDT 40 mg $Given 02/24/2024 11:00 AM CDT 40 mg furosemide (LASIX) injection 20 mg 20 mg, Intravenous, ONCE, Administer over 1-3 Minutes, On 02/24/24 at 1630, For 1 dose $Given 02/24/2024 6:45 PM CDT 20 mg furosemide (LASIX) injection 40 mg 40 mg, Intravenous, ONCE, Administer over 1-3 Minutes, On 02/25/24 at 0300, For 1 dose $Given 02/25/2024 2:40 AM CDT 40 mg lactulose (CHRONULAC) solution 20 g 20 g, Oral, 2 TIMES DAILY PRN, constipation, Starting on Mon02/26/24 at 1517 magnesium sulfate 2 g in 50 mL sterile water intermittent infusion 2 g, Intravenous, Administer over 60 Minutes, at 50 mL/hr, ONCE, On Mon02/23/24 at 1230, For 1 dose, Magnesium level 1.1-1.5 mg/dL. Administer 2 gm magnesium IV x 1 doses and recheck magnesium level 2-4 hours AFTER the last dose is infused. Ordered from the Magnesium replacement order set. $New Bag 02/23/2024 2:58 PM CDT 2 g 50 mL/hr magnesium sulfate 2 g in 50 mL sterile water intermittent infusion 2 g, Intravenous, Administer over 60 Minutes, at 50 mL/hr, ONCE, On 02/25/24 at 1430, For 1 dose, Magnesium level 1.1-1.5 mg/dL. Administer 2 gm magnesium IV x 1 doses and recheck magnesium level 2-4 hours AFTER the last dose is infused. Ordered from the Magnesium replacement order set. $New Bag 02/25/2024 3:13 PM CDT 2 g 50 mL/hr naloxone (NARCAN) injection 0.2 mg 0.2 mg, Intravenous, EVERY 2 MIN PRN, opioid reversal, Starting on Gwendolyn 02/22/24 at 2336, Administer intravenous route when available and notify provider when administered. For unintended sedation or respiratory depression if all of the below criteria are met: ~ respiratory rate LESS than or EQUAL to 8. ~SaO2 less than 92% and or/end-tidal CO2 is greater than 50. ~ the patient is receiving an opioid, has unintended sedations assessed as RASS (-3), and is currently not on mechanical ventilation. RASS scale moderate (-3) is movement or eye opening to voice but no eye contact. Patient Monitoring Once the patient has demonstrated a response to the naloxone, continue to monitor respiratory rate, depth, oxygen saturation and end-tidal CO2 (if available) every 15 minutes x 2, then every 30 minutes x 2, then every 1 hour x 1 after each naloxone dose. Consider transfer to ICU if patient respiratory parameters have not improved after 4 naloxone doses. naloxone (NARCAN) injection 0.2 mg 0.2 mg, Intramuscular, EVERY 2 MIN PRN, opioid reversal, Starting on Gwendolyn 02/22/24 at 2336, Administer intramuscular if an intravenous route is not available and notify provider when administered. For unintended sedation or respiratory depression if all of the below criteria are met: ~ respiratory rate LESS than or EQUAL to 8. ~SaO2 less than 92% and or/end-tidal CO2 is greater than 50. ~ the patient is receiving an opioid, has unintended sedations assessed as RASS (-3), and is currently not on mechanical ventilation. RASS scale moderate (-3) is movement or eye opening to voice but no eye contact. Patient Monitoring Once the patient has demonstrated a response to the naloxone, continue to monitor respiratory rate, depth, oxygen saturation and end-tidal CO2 (if available) every 15 minutes x 2, then every 30 minutes x 2, then every 1 hour x 1 after each naloxone dose. Consider transfer to ICU if patient respiratory parameters have not improved after 4 naloxone doses. naloxone (NARCAN) injection 0.4 mg 0.4 mg, Intravenous, EVERY 2 MIN PRN, opioid reversal, Starting on Gwendolyn 02/22/24 at 2336, Administer intravenous route when available and notify provider when administered. For unintended sedation or respiratory depression if all of the below criteria are met: ~ respiratory rate LESS than or EQUAL to 8. ~ SaO2 less than 92% and or/end-tidal CO2 is greater than 50. ~ the patient is receiving an opioid, has unintended sedation assessed as RASS (-4) or (-5) and patient is currently not on mechanical ventilation. RASS scale (-4) is deep sedation with no response to voice but movement or eye opening to physical stimulation. RASS scale (-5) is unarousable. Patient Monitoring Once the patient has demonstrated a response to the naloxone, continue to monitor respiratory rate, depth, oxygen saturation and end-tidal CO2 (if available) every 15 minutes x 2, then every 30 minutes x 2, then every 1 hour x 1 after each naloxone dose. Consider transfer to ICU if patient respiratory parameters have not improved after 4 naloxone doses. naloxone (NARCAN) injection 0.4 mg 0.4 mg, Intramuscular, EVERY 2 MIN PRN, opioid reversal, Starting on Gwendolyn 02/22/24 at 2336, Administer intramuscular if an intravenous route is not available and notify provider when administered. For unintended sedation or respiratory depression if all of the below criteria are met: ~ respiratory rate LESS than or EQUAL to 8. ~ SaO2 less than 92% and or/end-tidal CO2 is greater than 50. ~ the patient is receiving an opioid, has unintended sedation assessed as RASS (-4) or (-5) and patient is currently not on mechanical ventilation. RASS scale (-4) is deep sedation with no response to voice but movement or eye opening to physical stimulation. RASS scale (-5) is unarousable. Patient Monitoring Once the patient has demonstrated a response to the naloxone, continue to monitor respiratory rate, depth, oxygen saturation and end-tidal CO2 (if available) every 15 minutes x 2, then every 30 minutes x 2, then every 1 hour x 1 after each naloxone dose. Consider transfer to ICU if patient respiratory parameters have not improved after 4 naloxone doses. ondansetron (ZOFRAN ODT) ODT tab 4 mg 4 mg, Oral, EVERY 6 HOURS PRN, nausea, vomiting, Starting on Gwendolyn 02/22/24 at 2335, This is Step 1 of nausea and vomiting management. If nausea not resolved in 15 minutes, go to Step 2 prochlorperazine (COMPAZINE). With dry hands, peel back foil backing and gently remove tablet. Do not push oral disintegrating tablet through foil backing. Administer immediately on tongue and oral disintegrating tablet dissolves in seconds, then swallow with saliva. Liquid not required. ondansetron (ZOFRAN) injection 4 mg 4 mg, Intravenous, EVERY 6 HOURS PRN, nausea, vomiting, Administer over 2-5 Minutes, Starting on Gwendolyn 02/22/24 at 2335, Give IF patient unable to tolerate oral medication. This is Step 1 of nausea and vomiting management. If nausea not resolved in 15 minutes, go to Step 2 prochlorperazine (COMPAZINE). Irritant. oxyCODONE IR (ROXICODONE) half-tab 2.5 mg 2.5 mg, Oral, EVERY 4 HOURS PRN, moderate pain, IF pain not managed with non-pharmacological and non-opioid interventions, Starting on Gwendolyn 02/22/24 at 2335, May use concomitant with non-opioid analgesics. $Given 02/29/2024 1:16 AM CDT 2.5 mg polyethylene glycol (MIRALAX) Packet 17 g 17 g, Oral, DAILY, First dose on Mon02/23/24 at 0900, 1 Packet = 17 grams. Mix each gram with at least 1/2 ounce (15 mL) of water - 8 ounces for 17 g dose, 4 ounces for 8.5 g dose, 2 ounces for 4 g dose. Follow with the same volume of water. Hold for loose stools unless being administered as part of a bowel prep regimen or bowel clean out. $Given 02/24/2024 11:00 AM CDT 17 g $Given 02/23/2024 9:38 AM CDT 17 g polyethylene glycol (MIRALAX) Packet 17 g 17 g, Oral, 2 TIMES DAILY, First dose (after last modification) on Mon02/24/24 at 2100, 1 Packet = 17 grams. Mix each gram with at least 1/2 ounce (15 mL) of water - 8 ounces for 17 g dose, 4 ounces for 8.5 g dose, 2 ounces for 4 g dose. Follow with the same volume of water. Hold for loose stools unless being administered as part of a bowel prep regimen or bowel clean out. $Given 02/28/2024 8:57 AM CDT 17 g $Given 02/27/2024 8:56 PM CDT 17 g $Given 02/27/2024 7:48 AM CDT 17 g potassium chloride tien ER (KLOR-CON M20) CR tablet 20 mEq 20 mEq, Oral, ONCE, On Mon02/25/24 at 2230, For 1 dose, Potassium level 3.1 - 3.4 mmol/L Ordered from the Potassium replacement order set. DO NOT CRUSH, Potassium Replacement: Potassium level 3.1-3.4 mmol/L, Recheck: Potassium level 4 hours AFTER last oral dose $Given 02/25/2024 11:47 PM CDT 20 mEq potassium chloride tien ER (KLOR-CON M20) CR tablet 20 mEq 20 mEq, Oral, ONCE, On Gwendolyn 02/29/24 at 0930, For 1 dose, Potassium level 3.1 - 3.4 mmol/L Ordered from the Potassium replacement order set. DO NOT CRUSH, Potassium Replacement: Potassium level 3.1-3.4 mmol/L, Recheck: Potassium level 4 hours AFTER last oral dose $Given 02/29/2024 11:06 AM CDT 20 mEq potassium chloride tien ER (KLOR-CON M20) CR tablet 40 mEq 40 mEq, Oral, ONCE, On 02/25/24 at 1430, For 1 dose, Potassium level 2.7 - 3 mmol/L Ordered from the Potassium replacement order set. DO NOT CRUSH, Potassium Replacement: Potassium level 2.7-3 mmol/L, Recheck: Potassium level 4 hours AFTER last oral dose $Given 02/25/2024 3:13 PM CDT 40 mEq prochlorperazine (COMPAZINE) injection 5 mg 5 mg, Intravenous, EVERY 6 HOURS PRN, nausea, vomiting, Administer over 1-2 Minutes, Starting on Gwendolyn 02/22/24 at 2335, IF patient unable to tolerate oral medication. This is Step 2 of nausea and vomiting management. Give if nausea not resolved 15 minutes after giving ondansetron (ZOFRAN). prochlorperazine (COMPAZINE) suppository 12.5 mg 12.5 mg, Rectal, EVERY 12 HOURS PRN, nausea, vomiting, Starting on Gwendolyn 02/22/24 at 2335, This is Step 2 of nausea and vomiting management. Give if nausea not resolved 15 minutes after giving ondansetron (ZOFRAN). prochlorperazine (COMPAZINE) tablet 5 mg 5 mg, Oral, EVERY 6 HOURS PRN, vomiting, Starting on Gwendolyn 02/22/24 at 2335, This is Step 2 of nausea and vomiting management. Give if nausea not resolved 15 minutes after giving ondansetron (ZOFRAN). rasburicase (ELITEK) 6 mg in sodium chloride 0.9 % 50 mL infusion 6 mg, Intravenous, ONCE, On Mon02/23/24 at 0000, For 1 dose, Administer over 30 Minutes, Infuse IV over 30 miutes $New Gil 02/23/2024 12:27 AM CDT 6 mg senna-docusate (SENOKOT-S/PERICOLACE) 8.6-50 MG per tablet 1 tablet 1 tablet, Oral, 2 TIMES DAILY PRN, constipation, Starting on Gwendolyn 02/22/24 at 2331, If no bowel movement in 24 hours, increase to 2 tablets by mouth. IF more than 1 constipation PRN medication is ordered, administer step-garcia as indicated, moving to the next step ONLY if prior step ineffective. Step 1: senna-docusate (SENOKOT-S; PERICOLACE) OR bisacodyl (DULCOLAX) EC tablet Step 2: polyethylene glycol (MIRALAX/GLYCOLAX) Step 3: bisacodyl (DULCOLAX) suppository Step 4: enema Hold for loose stools. senna-docusate (SENOKOT-S/PERICOLACE) 8.6-50 MG per tablet 1 tablet 1 tablet, Oral, AT BEDTIME, First dose on Mon02/23/24 at 0000, Hold for loose stools. $Given 02/23/2024 9:46 PM CDT 1 tablet $Given 02/23/2024 12:43 AM CDT 1 tablet senna-docusate (SENOKOT-S/PERICOLACE) 8.6-50 MG per tablet 2 tablet 2 tablet, Oral, 2 TIMES DAILY PRN, constipation, Starting on Gwendolyn 02/22/24 at 2331, IF more than 1 constipation PRN medication is ordered, administer step-garcia as indicated, moving to the next step ONLY if prior step ineffective. Step 1: senna-docusate (SENOKOT-S; PERICOLACE) OR bisacodyl (DULCOLAX) EC tablet Step 2: polyethylene glycol (MIRALAX/GLYCOLAX) Step 3: bisacodyl (DULCOLAX) suppository Step 4: enema Hold for loose stools. $Given 02/24/2024 11:06 AM CDT 2 tabl ets $Given 02/23/2024 9:38 AM CDT 2 tablets senna-docusate (SENOKOT-S/PERICOLACE) 8.6-50 MG per tablet 2 tablet 2 tablet, Oral, 2 TIMES DAILY, First dose (after last modification) on 02/24/24 at 2100, Hold for loose stools. $Given 02/25/2024 9:40 AM CDT 2 tablets $Given 02/24/2024 10:18 PM CDT 2 tablets senna-docusate (SENOKOT-S/PERICOLACE) 8.6-50 MG per tablet 3 tablet 3 tablet, Oral, 2 TIMES DAILY, First dose (after last modification) on 02/25/24 at 2100, Hold for loose stools. $Given 02/28/2024 9:31 PM CDT 3 tablets $Given 02/28/2024 8:56 AM CDT 3 tablets $Given 02/27/2024 8:56 PM CDT 3 tablets sodium chloride (PF) 0.9% PF flush 3 mL 3 mL, Intracatheter, EVERY 8 HOURS, First dose on Mon02/23/24 at 0000, to lock peripheral IV dormant line $Given 02/28/2024 8:57 AM CDT 3 mLs $Given 02/28/2024 12:58 AM CDT 3 mLs $Given 02/27/2024 5:46 PM CDT 3 mLs sodium chloride (PF) 0.9% PF flush 3 mL 3 mL, Intracatheter, EVERY 1 MIN PRN, line flush, other, to ensure patency or to lock dormant line, Starting on Mon02/22/24 at 2331 $Given 02/24/2024 4:36 PM CDT 3 mLs sodium chloride 0.9 % infusion at 50 mL/hr, Intravenous, CONTINUOUS, Starting on Mon02/23/24 at 0000, Until Mon02/26/24 at 1517, On hold since 02/25/2024 at 0235 until manually unheld Rate/Dose Change 02/24/2024 6:46 PM CDT 50 mL /hr Rate/Dose Change 02/23/2024 6:59 PM CDT 100 mL/ hr $New Bag 02/23/2024 12:22 PM CDT 125 mL/hr sodium chloride 0.9 % infusion at 75 mL/hr, Intravenous, CONTINUOUS, Starting on Mon02/28/24 at 1100, Until Mon02/29/24 at 1415 $New Bag 02/29/2024 1:20 AM CDT 75 mL/hr $New 02/28/2024 11:05 AM CDT 75 mL/hr sodium chloride 0.9% BOLUS 1,000 mL Intravenous, 1,000 mL, ONCE, at 1,000 mL/hr, Administer over 1 Hours, On Mon02/23/24 at 0030, For 1 dose $New Bag 02/23/2024 12:28 AM CDT 1,000 mLs 1000 mL/hr zoledronic acid (ZOMETA) 4 mg in sodium chloride 0.9 % 110 mL intermittent infusion 4 mg, Intravenous, Administer over 15 Minutes, at 440 mL/hr, ONCE, On Mon02/27/24 at 1700, For 1 dose, Treating hypercalcemia $02/27/2024 5:46 PM CDT 4 mg 440 mL/hr documented in this encounter Active and Recently Administered Medications Times are shown in CDT. Scheduled Medication Order 02/27/2024 02/28/2024 02/29/2024 allopurinol (ZYLOPRIM) tablet 100 mg 100 mg, Oral, 3 TIMES DAILY, First dose (after last modification) on Mon03/01/24 at 0900 allopurinol (ZYLOPRIM) tablet 300 mg (CANCELED) 300 mg, Oral, DAILY, First dose on Mon02/27/24 at 1700 1746 ($Given - Provider: Marcy Emanuel RN) 0856 ($Given - Provider: Luisa Alcazar, CHRISTEN) 0906 ($Given - Provider: Yessy Martell) dexAMETHasone (DECADRON) injection 10 mg (COMPLETED) 10 mg, Intravenous, ONCE, Administer over 1 Minutes, On Mon02/28/24 at 1100, For 1 dose 1105 ($Given - Provider: Luisa Alcazar, CHRISTEN) enoxaparin ANTICOAGULANT (LOVENOX) injection 30 mg 30 mg, Subcutaneous, EVERY 24 HOURS, First dose (after last modification) on Mon02/27/24 at 0800, HOLD if platelet count falls below 50% of baseline or less than 100,000/??L and notify provider. Dose adjusted per renal dosing policy. Estimated CrCl = <30 mL/min. 0749 ($Given - Provider: Marcy Emanuel RN) 0900 ($Given - Provider: Luisa Alcazar, CHRISTEN) 0906 ($Given - Provider: Yessy Martell) polyethylene glycol (MIRALAX) Packet 17 g 17 g, Oral, 2 TIMES DAILY, First dose (after last modification) on [facility] 02/24/24 at 2100, 1 Packet = 17 grams. Mix each gram with at least 1/2 ounce (15 mL) of water - 8 ounces for 17 g dose, 4 ounces for 8.5 g dose, 2 ounces for 4 g dose. Follow with the same volume of water. Hold for loose stools unless being administered as part of a bowel prep regimen or bowel clean out. 0748 ($Given - Provider: Marcy Emanuel RN)0900 (Canceled Entry - Provider: Marcy Emanuel RN)2056 ($Given - Provider: Zulma Woodard RN) 0857 ($Given - Provider: Luisa Alcazar, CHRISTEN)2133 (Not Given - Provider: Maureen Crowell RN - Reason: Patient/family refused) 0912 (Not Given - Provider: Yessy Martell - Reason: Order parameters not met) potassium chloride tien ER (KLOR-CON M20) CR tablet 20 mEq (COMPLETED) 20 mEq, Oral, ONCE, On Gwendolyn 02/29/24 at 0930, For 1 dose, Potassium level 3.1 - 3.4 mmol/L Ordered from the Potassium replacement order set. DO NOT CRUSH, Potassium Replacement: Potassium level 3.1-3.4 mmol/L, Recheck: Potassium level 4 hours AFTER last oral dose 1106 ($Given - Provider: Yessy Martell) senna-docusate (SENOKOT-S/PERICOLACE) 8.6-50 MG per tablet 3 tablet 3 tablet, Oral, 2 TIMES DAILY, First dose (after last modification) on [place] 02/25/24 at 2100, Hold for loose stools. 0749 ($Given - Provider: Marcy Emanuel RN)0900 (Canceled Entry - Provider: Marcy Emanuel RN)2056 ($Given - Provider: Zulma Woodard, RN) 0856 ($Given - Provider: Luisa Alcazar, CHRISTEN)2131 ($Given - Provider: Maureen Crowell, CHRISTEN) 0912 (Not Given - Provider: Yessy Martell - Reason: Order parameters not met) sodium chloride (PF) 0.9% PF flush 3 mL 3 mL, Intracatheter, EVERY 8 HOURS, First dose on Mon02/23/24 at 0000, to lock peripheral IV dormant line 0749 ($Given - Provider: Marcy Emanuel, CHRISTEN)1746 ($Given - Provider: Marcy Emanuel, CHRISTEN) 0058 ($Given - Provider: Zulma Woodard RN)0857 ($Given - Provider: Luisa Alcazar, CHRISTEN)1700 (Not Given - Provider: Brit Thompson RN - Reason: IV Infusing) 0109 (Not Given - Provider: Maureen Crowell RN - Reason: IV Infusing)0912 (Not Given - Provider: Yessy Martell - Reason: IV Infusing) zoledronic acid (ZOMETA) 4 mg in sodium chloride 0.9 % 110 mL intermittent infusion (COMPLETED) 4 mg, Intravenous, Administer over 15 Minutes, at 440 mL/hr, ONCE, On Mon02/27/24 at 1700, For 1 dose, Treating hypercalcemia 1746 ($New Bag - Provider: Marcy Emanuel RN) Continuous Medication Order 02/27/2024 02/28/2024 02/29/2024 sodium chloride 0.9 % infusion at 75 mL/hr, Intravenous, CONTINUOUS, Starting on Mon02/28/24 at 1100, Until Mon02/29/24 at 1415 1105 ($New Bag - Provider: Luisa Alcazar, CHRISTEN) 0120 ($New Bag - Provider: Maureen Crowell, CHRISTEN)1109 (Stopped - Provider: Yessy Martell) PRN Medication Order 02/27/2024 02/28/2024 02/29/2024 acetaminophen (TYLENOL) Suppository 650 mg(Linked Group 1) 650 mg, Rectal, EVERY 4 HOURS PRN, mild pain, other, and adjunct with moderate or severe pain or per patient request, Starting on Gwendolyn 02/22/24 at 2334, Alternate with ibuprofen if ordered. Maximum acetaminophen dose from all sources = 75 mg/kg/day not to exceed 4 grams/day. 0344 (See Alternativ e - Provider: Maureen Crowell, CHRISTEN) acetaminophen (TYLENOL) tablet 650 mg(Linked Group 1) 650 mg, Oral, EVERY 4 HOURS PRN, mild pain, other, and adjunct with moderate or severe pain or per patient request, Starting on Gwendolyn 02/22/24 at 2334, Alternate with ibuprofen if ordered. Maximum acetaminophen dose from all sources = 75 mg/kg/day not to exceed 4 grams/day. 0344 ($Given - Provider: Maureen Crowell RN) albuterol (PROVENTIL) neb solution 2.5 mg 2.5 mg, Nebulization, EVERY 2 HOURS PRN, shortness of breath, Starting on 02/25/24 at 0233 1133 ($Given - Provider: Luisa Alcazar RN) bisacodyl (DULCOLAX) suppository 10 mg 10 mg, Rectal, DAILY PRN, constipation, Starting on Gwendolyn 02/22/24 at 2335, IF more than 1 constipation PRN medication is ordered, administer step-garcia as indicated, moving to the next step ONLY if prior step ineffective. Step 1: senna-docusate (SENOKOT-S; PERICOLACE) OR bisacodyl (DULCOLAX) EC tablet Step 2: polyethylene glycol (MIRALAX/GLYCOLAX) Step 3: bisacodyl (DULCOLAX) suppository Step 4: enema Hold for loose stools. lactulose (CHRONULAC) solution 20 g 20 g, Oral, 2 TIMES DAILY PRN, constipation, Starting on 02/26/24 at 1517 lidocaine (LMX4) cream Topical, EVERY 1 HOUR PRN, pain, with VAD insertion, Starting on Gwendolyn 02/22/24 at 2331, Apply at least 30 minutes prior to VAD insertion in divided doses as needed for size of site for insertion. MAX Dose: 2.5 g (?? of 5 g tube) Do NOT give if patient has a history of allergy to any local anesthetic or any randa product. Do NOT use both lidocaine intradermal/subcutaneous injection and the lidocaine cream on the same site. lidocaine 1 % 0.1-1 mL 0.1-1 mL, Other, EVERY 1 HOUR PRN, mild pain with VAD insertion, Starting on Gwendolyn 02/22/24 at 2331, MAX dose 1 mL subcutaneous OR intradermal along the side of the vein in divided doses as needed for VAD insertion. Do NOT give if patient has a history of allergy to any local anesthetic or any randa product. Do NOT use both lidocaine intradermal/subcutaneous injection and the lidocaine cream on the same site. melatonin tablet 1 mg 1 mg, Oral, AT BEDTIME PRN, sleep, Starting on Gwendolyn 02/22/24 at 2335, Do not give unless at least 6 hours of uninterrupted sleep is expected. If patient has multiple medications ordered PRN sleep/insomnia, offer melatonin first. naloxone (NARCAN) injection 0.2 mg(Linked Group 2) 0.2 mg, Intravenous, EVERY 2 MIN PRN, opioid reversal, Starting on Gwendolyn 02/22/24 at 2336, Administer intravenous route when available and notify provider when administered. For unintended sedation or respiratory depression if all of the below criteria are met: ~ respiratory rate LESS than or EQUAL to 8. ~SaO2 less than 92% and or/end-tidal CO2 is greater than 50. ~ the patient is receiving an opioid, has unintended sedations assessed as RASS (-3), and is currently not on mechanical ventilation. RASS scale moderate (-3) is movement or eye opening to voice but no eye contact. Patient Monitoring Once the patient has demonstrated a response to the naloxone, continue to monitor respiratory rate, depth, oxygen saturation and end-tidal CO2 (if available) every 15 minutes x 2, then every 30 minutes x 2, then every 1 hour x 1 after each naloxone dose. Consider transfer to ICU if patient respiratory parameters have not improved after 4 naloxone doses. naloxone (NARCAN) injection 0.2 mg(Linked Group 2) 0.2 mg, Intramuscular, EVERY 2 MIN PRN, opioid reversal, Starting on Gwendolyn 02/22/24 at 2336, Administer intramuscular if an intravenous route is not available and notify provider when administered. For unintended sedation or respiratory depression if all of the below criteria are met: ~ respiratory rate LESS than or EQUAL to 8. ~SaO2 less than 92% and or/end-tidal CO2 is greater than 50. ~ the patient is receiving an opioid, has unintended sedations assessed as RASS (-3), and is currently not on mechanical ventilation. RASS scale moderate (-3) is movement or eye opening to voice but no eye contact. Patient Monitoring Once the patient has demonstrated a response to the naloxone, continue to monitor respiratory rate, depth, oxygen saturation and end-tidal CO2 (if available) every 15 minutes x 2, then every 30 minutes x 2, then every 1 hour x 1 after each naloxone dose. Consider transfer to ICU if patient respiratory parameters have not improved after 4 naloxone doses. naloxone (NARCAN) injection 0.4 mg(Linked Group 2) 0.4 mg, Intravenous, EVERY 2 MIN PRN, opioid reversal, Starting on Gwendolyn 02/22/24 at 2336, Administer intravenous route when available and notify provider when administered. For unintended sedation or respiratory depression if all of the below criteria are met: ~ respiratory rate LESS than or EQUAL to 8. ~ SaO2 less than 92% and or/end-tidal CO2 is greater than 50. ~ the patient is receiving an opioid, has unintended sedation assessed as RASS (-4) or (-5) and patient is currently not on mechanical ventilation. RASS scale (-4) is deep sedation with no response to voice but movement or eye opening to physical stimulation. RASS scale (-5) is unarousable. Patient Monitoring Once the patient has demonstrated a response to the naloxone, continue to monitor respiratory rate, depth, oxygen saturation and end-tidal CO2 (if available) every 15 minutes x 2, then every 30 minutes x 2, then every 1 hour x 1 after each naloxone dose. Consider transfer to ICU if patient respiratory parameters have not improved after 4 naloxone doses. naloxone (NARCAN) injection 0.4 mg(Linked Group 2) 0.4 mg, Intramuscular, EVERY 2 MIN PRN, opioid reversal, Starting on Gwendolyn 02/22/24 at 2336, Administer intramuscular if an intravenous route is not available and notify provider when administered. For unintended sedation or respiratory depression if all of the below criteria are met: ~ respiratory rate LESS than or EQUAL to 8. ~ SaO2 less than 92% and or/end-tidal CO2 is greater than 50. ~ the patient is receiving an opioid, has unintended sedation assessed as RASS (-4) or (-5) and patient is currently not on mechanical ventilation. RASS scale (-4) is deep sedation with no response to voice but movement or eye opening to physical stimulation. RASS scale (-5) is unarousable. Patient Monitoring Once the patient has demonstrated a response to the naloxone, continue to monitor respiratory rate, depth, oxygen saturation and end-tidal CO2 (if available) every 15 minutes x 2, then every 30 minutes x 2, then every 1 hour x 1 after each naloxone dose. Consider transfer to ICU if patient respiratory parameters have not improved after 4 naloxone doses. ondansetron (ZOFRAN ODT) ODT tab 4 mg(Linked Group 3) 4 mg, Oral, EVERY 6 HOURS PRN, nausea, vomiting, Starting on Gwendolyn 02/22/24 at 2335, This is Step 1 of nausea and vomiting management. If nausea not resolved in 15 minutes, go to Step 2 prochlorperazine (COMPAZINE). With dry hands, peel back foil backing and gently remove tablet. Do not push oral disintegrating tablet through foil backing. Administer immediately on tongue and oral disintegrating tablet dissolves in seconds, then swallow with saliva. Liquid not required. ondansetron (ZOFRAN) injection 4 mg(Linked Group 3) 4 mg, Intravenous, EVERY 6 HOURS PRN, nausea, vomiting, Administer over 2-5 Minutes, Starting on Gwendolyn 02/22/24 at 2335, Give IF patient unable to tolerate oral medication. This is Step 1 of nausea and vomiting management. If nausea not resolved in 15 minutes, go to Step 2 prochlorperazine (COMPAZINE). Irritant. oxyCODONE (ROXICODONE) tablet 5 mg 5 mg, Oral, EVERY 4 HOURS PRN, severe pain, IF pain not managed with non-pharmacological and non-opioid interventions, Starting on Gwendolyn 02/22/24 at 2335, May use concomitant with non-opioid analgesics. oxyCODONE IR (ROXICODONE) half-tab 2.5 mg 2.5 mg, Oral, EVERY 4 HOURS PRN, moderate pain, IF pain not managed with non-pharmacological and non-opioid interventions, Starting on Gwendolyn 02/22/24 at 2335, May use concomitant with non-opioid analgesics. 0116 ($Given - Provider: Maureen Crowell RN) polyethylene glycol (MIRALAX) Packet 17 g 17 g, Oral, 2 TIMES DAILY PRN, constipation, Starting on Gwendolyn 24 at 2335, IF more than 1 constipation PRN medication is ordered, administer step-garcia as indicated, moving to the next step ONLY if prior step ineffective. Step 1: senna-docusate (SENOKOT-S; PERICOLACE) OR bisacodyl (DULCOLAX) EC tablet Step 2: polyethylene glycol (MIRALAX/GLYCOLAX) Step 3: bisacodyl (DULCOLAX) suppository Step 4: enema 1 Packet = 17 grams. Mix each gram with at least 1/2 ounce (15 mL) of water - 8 ounces for 17 g dose, 4 ounces for 8.5 g dose, 2 ounces for 4 g dose. Follow with the same volume of water. Hold for loose stools unless being administered as part of a bowel prep regimen or bowel clean out. prochlorperazine (COMPAZINE) injection 5 mg(Linked Group 4) 5 mg, Intravenous, EVERY 6 HOURS PRN, nausea, vomiting, Administer over 1-2 Minutes, Starting on Gwendolyn 624 at 2335, IF patient unable to tolerate oral medication. This is Step 2 of nausea and vomiting management. Give if nausea not resolved 15 minutes after giving ondansetron (ZOFRAN). prochlorperazine (COMPAZINE) suppository 12.5 mg(Linked Group 4) 12.5 mg, Rectal, EVERY 12 HOURS PRN, nausea, vomiting, Starting on Gwendolyn 24 at 2335, This is Step 2 of nausea and vomiting management. Give if nausea not resolved 15 minutes after giving ondansetron (ZOFRAN). prochlorperazine (COMPAZINE) tablet 5 mg(Linked Group 4) 5 mg, Oral, EVERY 6 HOURS PRN, vomiting, Starting on Gwendolyn 624 at 2335, This is Step 2 of nausea and vomiting management. Give if nausea not resolved 15 minutes after giving ondansetron (ZOFRAN). senna-docusate (SENOKOT-S/PERICOLACE) 8.6-50 MG per tablet 1 tablet(Linked Group 5) 1 tablet, Oral, 2 TIMES DAILY PRN, constipation, Starting on Gwendolyn 24 at 2331, If no bowel movement in 24 hours, increase to 2 tablets by mouth. IF more than 1 constipation PRN medication is ordered, administer step-garcia as indicated, moving to the next step ONLY if prior step ineffective. Step 1: senna-docusate (SENOKOT-S; PERICOLACE) OR bisacodyl (DULCOLAX) EC tablet Step 2: polyethylene glycol (MIRALAX/GLYCOLAX) Step 3: bisacodyl (DULCOLAX) suppository Step 4: enema Hold for loose stools. senna-docusate (SENOKOT-S/PERICOLACE) 8.6-50 MG per tablet 2 tablet(Linked Group 5) 2 tablet, Oral, 2 TIMES DAILY PRN, constipation, Starting on Gwendolyn 02/22/24 at 2331, IF more than 1 constipation PRN medication is ordered, administer step-garcia as indicated, moving to the next step ONLY if prior step ineffective. Step 1: senna-docusate (SENOKOT-S; PERICOLACE) OR bisacodyl (DULCOLAX) EC tablet Step 2: polyethylene glycol (MIRALAX/GLYCOLAX) Step 3: bisacodyl (DULCOLAX) suppository Step 4: enema Hold for loose stools. sodium chloride (PF) 0.9% PF flush 3 mL 3 mL, Intracatheter, EVERY 1 MIN PRN, line flush, other, to ensure patency or to lock dormant line, Starting on Gwendolyn 02/22/24 at 2331 Linked Groups Order Group 1: acetaminophen (TYLENOL) tablet 650 mgJump to med 650 mg, Oral, EVERY 4 HOURS PRN, mild pain, other, and adjunct with moderate or severe pain or per patient request, Starting on Gwendolyn 02/22/24 at 2334, Alternate with ibuprofen if ordered. Maximum acetaminophen dose from all sources = 75 mg/kg/day not to exceed 4 grams/day. Or acetaminophen (TYLENOL) Suppository 650 mgJump to med 650 mg, Rectal, EVERY 4 HOURS PRN, mild pain, other, and adjunct with moderate or severe pain or per patient request, Starting on Gwendolyn 02/22/24 at 2334, Alternate with ibuprofen if ordered. Maximum acetaminophen dose from all sources = 75 mg/kg/day not to exceed 4 grams/day. Group 2: naloxone (NARCAN) injection 0.2 mgJump to med 0.2 mg, Intravenous, EVERY 2 MIN PRN, opioid reversal, Starting on Gwendolyn 02/22/24 at 2336, Administer intravenous route when available and notify provider when administered. For unintended sedation or respiratory depression if all of the below criteria are met: ~ respiratory rate LESS than or EQUAL to 8. ~SaO2 less than 92% and or/end-tidal CO2 is greater than 50. ~ the patient is receiving an opioid, has unintended sedations assessed as RASS (-3), and is currently not on mechanical ventilation. RASS scale moderate (-3) is movement or eye opening to voice but no eye contact. Patient Monitoring Once the patient has demonstrated a response to the naloxone, continue to monitor respiratory rate, depth, oxygen saturation and end-tidal CO2 (if available) every 15 minutes x 2, then every 30 minutes x 2, then every 1 hour x 1 after each naloxone dose. Consider transfer to ICU if patient respiratory parameters have not improved after 4 naloxone doses. Or naloxone (NARCAN) injection 0.4 mgJump to med 0.4 mg, Intravenous, EVERY 2 MIN PRN, opioid reversal, Starting on Gwendolyn 02/22/24 at 2336, Administer intravenous route when available and notify provider when administered. For unintended sedation or respiratory depression if all of the below criteria are met: ~ respiratory rate LESS than or EQUAL to 8. ~ SaO2 less than 92% and or/end-tidal CO2 is greater than 50. ~ the patient is receiving an opioid, has unintended sedation assessed as RASS (-4) or (-5) and patient is currently not on mechanical ventilation. RASS scale (-4) is deep sedation with no response to voice but movement or eye opening to physical stimulation. RASS scale (-5) is unarousable. Patient Monitoring Once the patient has demonstrated a response to the naloxone, continue to monitor respiratory rate, depth, oxygen saturation and end-tidal CO2 (if available) every 15 minutes x 2, then every 30 minutes x 2, then every 1 hour x 1 after each naloxone dose. Consider transfer to ICU if patient respiratory parameters have not improved after 4 naloxone doses. Or naloxone (NARCAN) injection 0.2 mgJump to med 0.2 mg, Intramuscular, EVERY 2 MIN PRN, opioid reversal, Starting on Gwendolyn 6/6/24 at 2336, Administer intramuscular if an intravenous route is not available and notify provider when administered. For unintended sedation or respiratory depression if all of the below criteria are met: ~ respiratory rate LESS than or EQUAL to 8. ~SaO2 less than 92% and or/end-tidal CO2 is greater than 50. ~ the patient is receiving an opioid, has unintended sedations assessed as RASS (-3), and is currently not on mechanical ventilation. RASS scale moderate (-3) is movement or eye opening to voice but no eye contact. Patient Monitoring Once the patient has demonstrated a response to the naloxone, continue to monitor respiratory rate, depth, oxygen saturation and end-tidal CO2 (if available) every 15 minutes x 2, then every 30 minutes x 2, then every 1 hour x 1 after each naloxone dose. Consider transfer to ICU if patient respiratory parameters have not improved after 4 naloxone doses. Or naloxone (NARCAN) injection 0.4 mgJump to med 0.4 mg, Intramuscular, EVERY 2 MIN PRN, opioid reversal, Starting on Gwendolyn 02/22/24 at 2336, Administer intramuscular if an intravenous route is not available and notify provider when administered. For unintended sedation or respiratory depression if all of the below criteria are met: ~ respiratory rate LESS than or EQUAL to 8. ~ SaO2 less than 92% and or/end-tidal CO2 is greater than 50. ~ the patient is receiving an opioid, has unintended sedation assessed as RASS (-4) or (-5) and patient is currently not on mechanical ventilation. RASS scale (-4) is deep sedation with no response to voice but movement or eye opening to physical stimulation. RASS scale (-5) is unarousable. Patient Monitoring Once the patient has demonstrated a response to the naloxone, continue to monitor respiratory rate, depth, oxygen saturation and end-tidal CO2 (if available) every 15 minutes x 2, then every 30 minutes x 2, then every 1 hour x 1 after each naloxone dose. Consider transfer to ICU if patient respiratory parameters have not improved after 4 naloxone doses. Group 3: ondansetron (ZOFRAN ODT) ODT tab 4 mgJump to med 4 mg, Oral, EVERY 6 HOURS PRN, nausea, vomiting, Starting on Gwendolyn 02/22/24 at 2335, This is Step 1 of nausea and vomiting management. If nausea not resolved in 15 minutes, go to Step 2 prochlorperazine (COMPAZINE). With dry hands, peel back foil backing and gently remove tablet. Do not push oral disintegrating tablet through foil backing. Administer immediately on tongue and oral disintegrating tablet dissolves in seconds, then swallow with saliva. Liquid not required. Or ondansetron (ZOFRAN) injection 4 mgJump to med 4 mg, Intravenous, EVERY 6 HOURS PRN, nausea, vomiting, Administer over 2-5 Minutes, Starting on Gwendolyn 24 at 2335, Give IF patient unable to tolerate oral medication. This is Step 1 of nausea and vomiting management. If nausea not resolved in 15 minutes, go to Step 2 prochlorperazine (COMPAZINE). Irritant. Group 4: prochlorperazine (COMPAZINE) injection 5 mgJump to med 5 mg, Intravenous, EVERY 6 HOURS PRN, nausea, vomiting, Administer over 1-2 Minutes, Starting on Gwendolyn 624 at 2335, IF patient unable to tolerate oral medication. This is Step 2 of nausea and vomiting management. Give if nausea not resolved 15 minutes after giving ondansetron (ZOFRAN). Or prochlorperazine (COMPAZINE) tablet 5 mgJump to med 5 mg, Oral, EVERY 6 HOURS PRN, vomiting, Starting on Gwendolyn 624 at 2335, This is Step 2 of nausea and vomiting management. Give if nausea not resolved 15 minutes after giving ondansetron (ZOFRAN). Or prochlorperazine (COMPAZINE) suppository 12.5 mgJump to med 12.5 mg, Rectal, EVERY 12 HOURS PRN, nausea, vomiting, Starting on Gwendolyn 24 at 2335, This is Step 2 of nausea and vomiting management. Give if nausea not resolved 15 minutes after giving ondansetron (ZOFRAN). Group 5: senna-docusate (SENOKOT-S/PERICOLACE) 8.6-50 MG per tablet 1 tabletJump to med 1 tablet, Oral, 2 TIMES DAILY PRN, constipation, Starting on Gwendolyn 24 at 2331, If no bowel movement in 24 hours, increase to 2 tablets by mouth. IF more than 1 constipation PRN medication is ordered, administer step-garcia as indicated, moving to the next step ONLY if prior step ineffective. Step 1: senna-docusate (SENOKOT-S; PERICOLACE) OR bisacodyl (DULCOLAX) EC tablet Step 2: polyethylene glycol (MIRALAX/GLYCOLAX) Step 3: bisacodyl (DULCOLAX) suppository Step 4: enema Hold for loose stools. Or senna-docusate (SENOKOT-S/PERICOLACE) 8.6-50 MG per tablet 2 tabletJump to med 2 tablet, Oral, 2 TIMES DAILY PRN, constipation, Starting on Gwendolyn 02/22/24 at 2331, IF more than 1 constipation PRN medication is ordered, administer step-garcia as indicated, moving to the next step ONLY if prior step ineffective. Step 1: senna-docusate (SENOKOT-S; PERICOLACE) OR bisacodyl (DULCOLAX) EC tablet Step 2: polyethylene glycol (MIRALAX/GLYCOLAX) Step 3: bisacodyl (DULCOLAX) suppository Step 4: enema Hold for loose stools. documented in this encounter Additional Health Concerns Active Problems Noted Date Diagnosed Date MyC ECC SURG [facility] 01/17/2024 documented as of this encounter Care Teams [employer] Relationship Specialty Start Date End Date Alisha Yuan MD [address] [address] PCP - General Family Medicine 01/11/24 documented as of this encounter
--- OUTSIDE RECORDS SUMMARY | 2024-03-08 15:43 | XMS_ITS | Encounter Summary ---
Author Organization [place] Address [facility] [place] [address] Care Team Providers Care System Support Administrator Name Role Phone Zena Yuan MD Primary Care Provider Reason for Visit * Auth/Cert Specialty Diagnoses / Procedures Referred By Contac t Referred To Contact Surgery Diagnoses Intra-abdominal and pelvic swelling, mass and lump, unspecified site Intra-abdominal and pelvic swelling, mass and lump, unspecified site [R19.00] Procedures [place] LAPAROSCOPY, SURGICAL, ABDOMEN, PERITONEUM & OMENTUM; DX W/ OR W/O SPECIMEN(S) DIAGNOSTIC LAPAROSCOPY, ABDOMINAL BIOPSIES Periop Services [address] [place] [address] Referral ID Status Reason Start Date Expiration Date Visits Re quested Visits Authorized [id number] 1 1 Encounter Details Date Type Department Care Team (Late st Contact Info) Description 01/22/2024 1:10 PM CDT - 01/22/2024 2:40 PM CDT Surgery [facility] PeriOP Services [address] [place] [address] Helen Escalera MD [facility] [address] [facility] [address] [place], [place] [address] DIAGNOSTIC LAPAROSCOPY, OMENTAL BIOPSIES, AND EVACUATION OF ASCITES Surgery Details Date/Time Status Location OR Service Patient Class Case Class Case Type Trauma Case? 01/22/24 1:10 PM Posted OR OR 23 Gynecology Oncology Same Day Surgery Elective [...] about your procedure, call Dr. Escalera at [phone] documented in this encounter Medications at Time [...] patient is located in their home in [place], [place], and IDr. Escalera, am located in the [facility]. The visit started at 01:45 PM and completed at 02:05 PM. Total time spent on theday of service is 35 minutes including time spent reviewing records, telemedicine visit with the patient, preparing orders, and documentation. Reason for Consult: Peritoneal carcinomatosis Elevated Ca-125 Inability to perform IR-guided biopsy of abdominal cavity History of Present Illness (Medical Clerk Oncology): Ms. Bar is a kiesha 83 [...] ER visit & subsequent hospital admission in [place], [place]. She has had a hysterectomy in [...] to drink Ensure. She normally donnelly in [place] on the [facility] in [place], [place]. She also has a son and [place] that she is able to visit. Her brother recently . She lives in [place], [place] the remainder of the year. Oncology Treatment Summary: 01/03/2024: Presented to [place] ER for unintentional weight loss, fatigue, etc. CT chest/abdomen/pelvis w/ IV contrast noted diffuse adenopathy (likely metastatic), omental carcinomatosis, peritoneal nodularity with thickening and mild enhancement, mild to moderate pelvic ascites. 01/10/2024: Tumor markers with Ca-125 = 1068 (elevated), CEA = 0.9 (normal) & Ca 19-9 = 8 (normal). 01/15/2024: IR biopsy requested. 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 Postmenopausal Allergies# NKA Medications: Miscellaneous Drug 1 All medications are currently on hold per patient 01/16 Family History: No family history of cancers. Of note, her son-in-law is a colon Ca patient at [facility]. Social History: She is a never smoker. She denies any alcohol use. She lives alone in [facility] and has extended family for support. She [...] to nature of video visit. Physical Exam (Medical Clerk Oncology): General: The remainder of the physical [...] ascites. Problems: Peritoneal carcinomatosis Assessment & Plan (Medical Clerk Oncology): 1. 83 yo postmenopausal female with [...] her response and her overall functional status. [facility] location is most convenient for her and [...] present were apprised of the use of [employer] remote documentationservice and all parties consented to [...] Assistants (if any): Surgeon(s): Helen Escalera MD Supply Requirements Officer: Guillermina Gutiérrez RN Relief Supply Requirements Officer: Eneida Ortiz RN Scrub Person: Nora Arias [...] OR: Satisfactory Helen Escalera MD Gynecologic Oncology [place] Oncology [facility] * Op Note - Helen Escalera MD - 01/22/2024 1:52 PM CDT Gynecologic Oncology Operative Report DATE OF PROCEDURE: 01/22/2024 PATIENT NAME: Kendal Pelayo PATIENT PREOPERATIVE DIAGNOSIS: Peritoneal carcinomatosis, omental carcinomatosis, elevated Ca-125 POSTOPERATIVE DIAGNOSIS: Same PROCEDURES: Procedure(s): DIAGNOSTIC LAPAROSCOPY, OMENTAL BIOPSIES, AND EVACUATION OF ASCITES SURGEON: Helen Escalera MD BOX REPAIRER: There were no qualified assistants available to [...] ER visit & subsequent hospital admission in [place], [place]. She has had a hysterectomy in her 30's and believes it was a BSO and everything was removed. She has no family history of any cancers. At ER visit, she noted unintentional weight loss of ~50 pounds and generally not feeling well and noting fatigue since her knee replacement surgery in May 2023. Beard seen a few doctors over this time and had encouraged her to drink Ensure. Oncology Treatment Summary: 01/03/2024: Presented to [place] ER for unintentional weight loss, fatigue, etc. CT chest/abdomen/pelvis w/ IV contrast noted diffuse adenopathy (likely metastatic), omental carcinomatosis, peritoneal nodularity with thickening and mild enhancement, mild to moderate pelvic ascites. 01/10/2024: Tumor markers with Ca-125 = 1068 (elevated), CEA = 0.9 (normal) & Ca 19-9 = 8 (normal). 01/15/2024: IR biopsy requested. Patient presented to [facility] & did not feel there [...] was biopsied using a laparoscopic Ligasure device. Danaa of infracolic omentum was adherent to the [...] entire procedure. Helen Escalera MD Gynecologic Oncology [place] Oncology [facility] 01/22/2024 documented in this encounter Plan of [...] Case Report Surgical Pathology Report ? Case: [id number] ? Authorizing Provider: ??Hleen Escalera MD ? Collected: ? 01/22/2024 02:18 PM ? [facility] ? [facility] ?Received: ?01/22/2024 02:54 PM ? [facility] ? Pathologist: ? Candelaria Powers, ? MD ? Specimen: ?Omentum, Omentum Biopsy ? 02/07/2024 12:47 PM [facility] Addendum An addendum is issued, [...] a grade 1-2 process. 02/07/2024 12:47 PM [facility] Addendum electronically signed by Candelaria Powers MD on 02/07/2024 at 12:47 PM Final Diagnosis Omentum, biopsy -Follicular lymphoma, classical pattern 02/07/2024 12:47 PM [facility] Comment The unexpected finding of a lymphoid malignancy has been relayed to Dr. Escalera via her nurse Sherly on case sign out. 02/07/2024 12:47 PM [facility] Clinical Information Procedure: DIAGNOSTIC LAPAROSCOPY, OMENTAL BIOPSIES, AND EVACUATION OF ASCITES Pre-op Diagnosis: Intra-abdominal and pelvic swelling, mass and lump, unspecified site [R19.00] Post-op Diagnosis: R19.00 - Intra-abdominal and pelvic swelling, mass and lump, unspecified site [ICD-10-CM] 02/07/2024 12:47 PM [facility] Gross Description A(2). Omentum, Omentum Biopsy: The specimen is received in formalin labeled with the patient's name, medical record number and other identifying information and designated omentum biopsy. It consists of a 5.9 cm aggregate of [id number], ragged adipose tissue. Sectioning reveals huff-yellow, lobulated cut surfaces. No definitive tumor is identified. Submitted entirely in 3 cassettes. (Ryleetravis Rooney)01/22/2024 2:59 PM 02/07/2024 12:47 PM CDT [...] LABORATORY MCRS Yes(A) N/A 02/07/2024 12:47 PM T LABORATORY Performing Labs The technical component of this testing was completed at [facility] 02/07/2024 12:47 PM CDT LABORATORY Case Images 02/07/2024 12:47 PM CDT LABORATORY Biopsy OMENTUM STRUCTURE / Unknown 01/22/2024 2:18 PM CDT 01/22/2024 2:54 PM CDT Helen PORTER - ALEXANDRA SMITH LABORATORY [facility] Acute Care Lab [address] 1st floor, [address] [place] [address], [facility] [phone] * (ABNORMAL) Cytology, non-gynecologic (01/22/2024 2:09 PM CDT) Final Diagnosis Specimen A: Peritoneal fluid, paracentesis: Interpretation: Atypical. See comment. Other Findings: Abundant population of lymphoid elements. Adequacy: Satisfactory for evaluation. 01/25/2024 2:10 PM CDT LABORATORY Comment The findings should be correlated with the surgical pathology specimen [id number]. 01/25/2024 2:10 PM CDT LABORATORY Clinical Information [...] component of this testing was completed at [facility] 01/25/2024 2:10 PM CDT SPECIALTY LABS [place] ABDOMEN / Unknown 01/22/2024 2:09 PM CDT 01/22/2024 2:53 PM CDT Helen PORTER - ALEXANDRA LABORATORY [facility] Acute Care Lab [address] [facility] Lab (1st floor, no room number) [place] [address], [facility] SPECIALTY LABS Specialty Lab [address] [facility], [address] [place] [address] * Red Cell Antigen Typing Non ABO: (01/22/2024 12:15 PM CDT) Fyb Antigen Type Negative 01/22/2024 4:21 PM CDT BLOOD BANK SPECIMEN EXPIRATION DATE [id number] 01/22/2024 4:21 PM CDT BLOOD BANK Blood STRUCTURE OF RIGHT HAND / Unknown Venipuncture / Unknown 01/22/2024 12:15 PM CDT 01/22/2024 12:21 PM CDT Helen Escalera MD LAB - BLOOD BANK TE ORDER Performing Organization Address City/[facility]/ZIP Co de Phone Number BLOOD BANK [address] [place] [address], [facility] * Antibody identification (01/22/2024 12:15 PM CDT) Antibody Identification Anti-Wallace b (Fyb) 01/22/2024 1:34 PM CDT BLOOD BANK SPECIMEN EXPIRATION DATE [id number] 01/22/2024 1:34 PM CDT BLOOD BANK Blood STRUCTURE OF RIGHT HAND / Unknown Venipuncture / Unknown 01/22/2024 12:15 PM CDT 01/22/2024 12:21 PM CDT Helen Escalera MD LAB - BLOOD BANK [facility] ORDER Performing Organization Address [facility] Co de Phone Number BLOOD BANK [address] [place] [address], [facility] * (ABNORMAL) Adult Type and Screen (01/22/2024 12:15 PM CDT) ABO/RH(D) A POS 01/22/2024 11:54 AM CDT BLOOD BANK Antibody Screen Positive(A) Negative 01/22/2024 11:54 AM CDT BLOOD BANK SPECIMEN EXPIRATION DATE [id number] 01/22/2024 11:54 AM CDT BLOOD BANK Blood STRUCTURE OF RIGHT HAND / Unknown Venipuncture / Unknown 01/22/2024 12:15 PM CDT 01/22/2024 12:21 PM CDT Helen Escalera MD LAB - BLOOD BANK TE ORDER Performing Organization Address City/[facility]/ZIP Co de Phone Number BLOOD BANK [address] [place] [address], [facility] * (ABNORMAL) Hemoglobin (01/22/2024 12:15 PM CDT) Hemoglobin 10.3(L) 11.7 - 15.7 g/dL 01/22/2024 12:25 PM CDT LABORATORY Blood STRUCTURE OF RIGHT HAND / Unknown Venipuncture / Unknown 01/22/2024 12:15 PM CDT 01/22/2024 12:21 PM CDT Helen Escalera MD LAB - BLOOD ORDERAB LES LABORATORY [facility] Lab [address] 1st floor, [address] [place] [address], [place] [phone] documented in this encounter Visit Diagnoses Diagnosis [...] 1153, For 1 dose, Verify order with Manufacturing Quality Manager provider prior to Administering. High concentration heparin. [...] 1153, For 1 dose, Verify order with Manufacturing Quality Manager provider prior to Administering. High concentration heparin. [...] documented as of this encounter Care Teams System Support Administrator Relationship Specialty Start Date End Date Zena Yuan MD [address] [place] [address] PCP - General Family Medicine 01/11/24 documented as of this encounter
--- OUTSIDE RECORDS SUMMARY | 2024-03-08 15:43 | XMS_ITS | Encounter Summary ---
Author Organization [place] Address [address] [place] [address] Care Team Providers Care Interactive Media Project Manager Name Role Phone Zena Yuan MD Primary Care Provider [phone] Reason for Visit * Auth/Cert Specialty Diagnoses / Procedures Referred By Contac t Referred To Contact Surgery Diagnoses Intra-abdominal and pelvic swelling, mass and lump, unspecified site Intra-abdominal and pelvic swelling, mass and lump, unspecified site [R19.00] Procedures [place] LAPAROSCOPY, SURGICAL, ABDOMEN, PERITONEUM & OMENTUM; DX W/ OR W/O SPECIMEN(S) DIAGNOSTIC LAPAROSCOPY, ABDOMINAL BIOPSIES Sh Periop Services [address] [place] [address] Referral ID Status Reason Start Date Expiration Date Visits Re quested Visits Authorized [id number] 1 1 Encounter Details Date Type Department Care Team (Late st Contact Info) Description 01/22/2024 11:36 AM CDT - 01/22/2024 4:29 PM CDT Hospital Encounter [facility] PreOP/Phase II [address] [place] [address] Helen Escalera MD [facility] [address] [facility] [address] [place], [place] [address] Carcinomatosis (H) (Primary Dx) Discharge Disposition: Home [...] about your procedure, call Dr. Escalera at [phone] documented in this encounter Medications at Time [...] patient is located in their home in [place], [place], and Dr. Lali Youssef, rachel located in the [facility]. The visit started at 01:45 PM and completed at 02:05 PM. Total time spent on theday of service is 35 minutes including time spent reviewing records, telemedicine visit with the patient, preparing orders, and documentation. Reason for Consult: Peritoneal carcinomatosis Elevated Ca-125 Inability to perform IR-guided biopsy of abdominal cavity History of Present Illness (Leasing Associate Oncology): Ms. Bar is a kiesha 83 [...] ER visit & subsequent hospital admission in [place], [place]. She has had a hysterectomy in [...] to drink Ensure. She normally donnelly in [place] on the [facility] [place], [place]. She also has a son and [place] who live [place] that she is able to visit. Her brother recently . She lives in [place], [place] the remainder of the year. Oncology Treatment Summary: 01/03/2024: Presented to [place] ER for unintentional weight loss, fatigue, etc. CT chest/abdomen/pelvis w/ IV contrast noted diffuse adenopathy (likely metastatic), omental carcinomatosis, peritoneal nodularity with thickening and mild enhancement, mild to moderate pelvic ascites. 01/10/2024: Tumor markers with Ca-125 = 1068 (elevated), CEA = 0.9 (normal) & Ca 19-9 = 8 (normal). 01/15/2024: IR biopsy requested. Patient presented to [facility] & did not feel there was [...] surgery Back surgery Facial surgery Cholecystectomy Appendectomy cuff setter lockstitch History: x 4 Menarche age x. Postmenopausal Allergies# NKA Medications: Miscellaneous Drug 1 All medications are currently on hold per patient 01/16 Family History: No family history of cancers. Of note, her son-in-law is a colon Ca patient at [facility]. Social History: She is a never smoker. She denies any alcohol use. She lives alone in [facility] and has extended family for [...] to nature of video visit. Physical Exam (Leasing Associate Oncology): General: The remainder of the physical [...] ascites. Problems: Peritoneal carcinomatosis Assessment & Plan (Leasing Associate Oncology): 1. 83 yo postmenopausal female with [...] her response and her overall functional status. [facility] location is most convenient for her and [...] present were apprised of the use of [employer] remote documentationservice and all parties consented to [...] Assistants (if any): Surgeon(s): Helen Escalera MD Presetter Operator: Guillermina Gutiérrez RN Relief Presetter Operator: Eneida Ortiz RN Scrub Person: Nora Arias [...] OR: Satisfactory Helen Escalera MD Gynecologic Oncology [place] Oncology [facility] * Op Note - Helen Escalera MD - 01/22/2024 1:52 PM CDT Gynecologic Oncology Operative Report DATE OF PROCEDURE: 01/22/2024 PATIENT NAME: Kendal Pelayo PATIENT PREOPERATIVE DIAGNOSIS: Peritoneal carcinomatosis, omental carcinomatosis, elevated Ca-125 POSTOPERATIVE DIAGNOSIS: Same PROCEDURES: Procedure(s): DIAGNOSTIC LAPAROSCOPY, OMENTAL BIOPSIES, AND EVACUATION OF ASCITES SURGEON: Helen Escalera MD STUD MASTER/MISTRESS: There were no qualified assistants available to [...] ER visit & subsequent hospital admission in [place], [place]. She has had a hysterectomy in [...] Ensure. Oncology Treatment Summary: 01/03/2024: Presented to [place] ER for unintentional weight loss, fatigue, etc. CT chest/abdomen/pelvis w/ IV contrast noted diffuse adenopathy (likely metastatic), omental carcinomatosis, peritoneal nodularity with thickening and mild enhancement, mild to moderate pelvic ascites. 01/10/2024: Tumor markers with Ca-125 = 1068 (elevated), CEA = 0.9 (normal) & Ca 19-9 = 8 (normal). 01/15/2024: IR biopsy requested. Patient presented to [facility] & did not feel there was [...] was present and scrubbed the entire procedure. Heeln Escalera MD Gynecologic Oncology [place] Oncology [facility] 01/22/2024 documented in this encounter Plan of [...] Case Report Surgical Pathology Report ? Case: [id number] ? Authorizing Provider: ??Helen Escalera, ? Collected: ? 01/22/2024 02:18 PM ? Ordering Location: ? [facility] ?Received: ?01/22/2024 02:54 PM ? [facility] ? Pathologist: ? Candelaria Powers, ? MD ? Specimen: ?Omentum, Omentum Biopsy ? 02/07/2024 12:47 PM [facility] Addendum An addendum is issued, on [...] a grade 1-2 process. 02/07/2024 12:47 PM [facility] Addendum electronically signed by Candelaria Powers MD on 02/07/2024 at 12:47 PM Final Diagnosis Omentum, biopsy -Follicular lymphoma, classical pattern 02/07/2024 12:47 PM [facility] Comment The unexpected finding of a lymphoid malignancy has been relayed to Dr. Escalera via her nurse Sherly on case sign out. 02/07/2024 12:47 PM [facility] Clinical Information Procedure: DIAGNOSTIC LAPAROSCOPY, OMENTAL BIOPSIES, AND EVACUATION OF ASCITES Pre-op Diagnosis: Intra-abdominal and pelvic swelling, mass and lump, unspecified site [R19.00] Post-op Diagnosis: R19.00 - Intra-abdominal and pelvic swelling, mass and lump, unspecified site [ICD-10-CM] 02/07/2024 12:47 PM [facility] Gross Description A(2). Omentum, Omentum Biopsy: The specimen is received in formalin labeled with the patient's name, medical record number and other identifying information and designated omentum biopsy. It consists of a 5.9 cm aggregate of hrw-mgrz-zupasr, ragged adipose tissue. Sectioning reveals huff-yellow, lobulated [...] component of this testing was completed at [facility] 02/07/2024 12:47 PM CDT LABORATORY Case Images 02/07/2024 12:47 PM CDT LABORATORY Biopsy OMENTUM STRUCTURE / Unknown 01/22/2024 2:18 PM CDT 01/22/2024 2:54 PM CDT Helen Escalera MD [facility]OR[facility] Acute Care Lab [address] 1st floor, [address] [place] [address], [facility] [phone] * (ABNORMAL) Cytology, non-gynecologic (01/22/2024 2:09 PM CDT) Final Diagnosis Specimen A: Peritoneal fluid, paracentesis: Interpretation: Atypical. See comment. Other Findings: Abundant population of lymphoid elements. Adequacy: Satisfactory for evaluation. 01/25/2024 2:10 PM CDT LABORATORY Comment The findings should be correlated with the surgical pathology specimen [id number]. 01/25/2024 2:10 PM CDT LABORATORY Clinical Information [...] component of this testing was completed at [facility] [place] [facility] 01/25/2024 2:10 PM CDT SPECIALTY LABS [place] ABDOMEN / Unknown 01/22/2024 2:09 PM CDT 01/22/2024 2:53 PM CDT Helen Escalera MD LAB - [facility] LABORATORY [facility] Acute Care Lab [address] (1st floor, no room number) [place] [address], [facility] SPECIALTY LABS Specialty Lab [address] [facility], [address] [place] [address], [facility] * Red Cell Antigen Typing Non ABO: (01/22/2024 12:15 PM CDT) Pathologist [facility] Fyb Antigen Type Negative 01/22/2024 4:21 PM CDT BLOOD BANK SPECIMEN EXPIRATION DATE [id number] 01/22/2024 4:21 PM CDT BLOOD BANK Blood STRUCTURE OF RIGHT HAND / Unknown Venipuncture / Unknown 01/22/2024 12:15 PM CDT 01/22/2024 12:21 PM CDT Helen Escalera MD LAB - BLOOD BANK TE ST ORDER BLOOD BANK [address] [place] [address], [place] * Antibody identification (01/22/2024 12:15 PM CDT) Pathologist [facility] Antibody Identification Anti-Wallace b (Fyb) 01/22/2024 1:34 PM CDT BLOOD BANK SPECIMEN EXPIRATION DATE [id number] 01/22/2024 1:34 PM CDT BLOOD BANK Blood STRUCTURE OF RIGHT HAND / Unknown Venipuncture / Unknown 01/22/2024 12:15 PM CDT 01/22/2024 12:21 PM CDT Helen Escalera MD LAB - BLOOD BANK TE ORDER BLOOD BANK [address] [place] [address], [facility] * (ABNORMAL) Adult Type and Screen (01/22/2024 12:15 PM CDT) Pathologist [facility] ABO/RH(D) A POS 01/22/2024 11:54 AM CDT BLOOD BANK Antibody Screen Positive(A) Negative 01/22/2024 11:54 AM CDT BLOOD BANK SPECIMEN EXPIRATION DATE [id number] 01/22/2024 11:54 AM CDT BLOOD BANK Blood STRUCTURE OF RIGHT HAND / Unknown Venipuncture / Unknown 01/22/2024 12:15 PM CDT 01/22/2024 12:21 PM CDT Helen Escalera MD LAB - BLOOD BANK TE ORDER Performing Organization Address City/[facility] Co de Phone Number BLOOD BANK [address] [place] [address], [facility] * (ABNORMAL) Hemoglobin (01/22/2024 12:15 PM CDT) Pathologist [facility] Hemoglobin 10.3(L) 11.7 - 15.7 g/dL 01/22/2024 12:25 PM CDT LABORATORY Blood STRUCTURE OF RIGHT HAND / Unknown Venipuncture / Unknown 01/22/2024 12:15 PM CDT 01/22/2024 12:21 PM CDT Helen Escalera MD LAB - BLOOD ORDERAB LES [facility] Acute Care Lab [address] 1st floor, [address] [place] [address], [facility] [phone] documented in this encounter Visit Diagnoses Diagnosis [...] 1153, For 1 dose, Verify order with Furnace Attendant provider prior to Administering. High concentration heparin. [...] 1153, For 1 dose, Verify order with Furnace Attendant provider prior to Administering. High concentration heparin. [...] ($New Bag - Provider: Kenzie Jacinto APRN TRANSPORTATION PLANNER)[id number] (Anesthesia Volume Adjustment - Provider: Kenzie Jacinto APRN TRANSPORTATION PLANNER) PRN Medication Order 01/20/2024 01/21/2024 01/22/2024 acetaminophen [...] 0.9% irrigation (bag) (CANCELED) PRN, Starting on 01/22/24 at 1402, Intra-procedure 1402 ($Given - Provi henna: Helen Escalera MD) documented in this encounter Additional Health Concerns Active Problems Noted Date Diagnosed Date MyC ECC SURG ENROLL 01/17/2024 documented as of this encounter Care Teams Interactive Media Project Manager Relationship Specialty Start Date End Date Zena Yuan MD [address] [address] PCP - General Family Medicine 01/11/24 documented as of this encounter
--- OUTSIDE RECORDS SUMMARY | 2024-03-08 15:43 | XMS_ITS | Encounter Summary ---
Author Organization [facility] Address [address] [place] [id number] Care Team Providers Care Risk Compliance Manager Name Role Phone Zena Yuan MD Primary Care Provider [phone] Encounter Details Date Type Department Care Team (Late st Contact Info) Description 01/11/2024 Telephone [facility] [address] [place] [id number] Keila Liu, RN Social History Tobacco Use [...] on filedocumented in this encounter Care Teams Risk Compliance Manager Relationship Specialty Start Date End Date [place] [address] PCP - General Family Medicine 01/11/24 documented as of this encounter
--- OUTSIDE RECORDS SUMMARY | 2024-03-08 15:44 | XMS_ITS | Clinical Summary ---
Author Organization [facility] Address [address] [place] [address] Care Team Providers Care Aerial Crop Duster Name Role Phone Unavailable Primary Care Provider Unavailabl e Source Comments Patient records contain information from all sites at [facility]. For routine questions regarding patient records, call [phone] during business hours, M-F 8:00 AM - 5:00 PM Central Time. Record requests for emergency care only can be directed to [phone] at any time.[facility] Allergies Active Allergy Reactions Criticality [...] history exists Medical Devices Implanted Type Area Photoengraving Helper Device Identifier Shelf Expiration Date Model / Serial / Lot Tmj-Fossa Screw 2.0 X 8mm - [employer] [id number] Implanted:Qty: 1 on 04/25/2008 [facility] [place] Left: Other/Legacy - See Implant Description TMJ Implants Description:Device Manufactu rer - [employer] Body Location - Left. Device Status Text [id number] Tmj-Custom Implant - [employer] [id number] Implanted:Qty: 1 on 04/25/2008 [facility] [place] Left: Other/Legacy - See Implant Description Other/Legacy - See Implant Description Description:Device Manufactu rer - [facility]. Body Location - Left. Device Status Text - [id number]. Tmj-Fossa Screw 2.0 X 8mm - [employer] [id number] Implanted:Qty: 1 on 04/25/2008 [facility] Prosthesis Left: Other/Legacy - See Implant Description TMJ Implants Description:Device Manufactu rer - [employer] Body Location - Left. Device Status Text - [id number]. Tmj-Custom Implant - [employer] [id number] Implanted:Qty: 1 on 01/20/2017 Mis Prosthesis Other/Legacy - See Implant Description TMJ Implants Description:Device Manufactu rer - [employer] Body Location - Other. Right. Device Status Text - [id number].
--- OUTSIDE RECORDS SUMMARY | 2024-03-08 15:44 | XMS_ITS ---
Author Organization [facility] Address [address] [place] [address] Care Team Providers Care Food Products Tester Name Role Phone Unavailable Unavailable Unavailable Surgery Details Not on file Complications Check Surgery Details section. Procedure Estimated Blood Loss Check Surgery Details section. Procedure Findings Check Surgery Details section. Procedure Specimens Taken Check Surgery Details section.
--- OUTSIDE RECORDS SUMMARY | 2024-03-08 15:44 | XMS_ITS | Clinical Summary ---
Author Organization [employer] [facility] Address [place], [place] [address] Care Team Providers Care Hangar Attendant Name Role Phone [facility] Unavailable [phone] KwabenaZena hanna MD Primary Care Provider Allergies Active Allergy Reactions Criticality Noted Date Comments Metformin Nausea Only 04/01/2013 Patient states I felt like I had morning sickness every morning Niacin Hives 03/01/2006 Sulfa (Sulfonamide Antibiotics) Hives 03/01/2006 Medications Medication Sig Dispensed Refills Start Date End Date Status blood-glucose meterIndications: Diabetes mellitus without complication (HC) [...] 1 10/05/2022 Active rosuvastatin (CRESTOR) 10 mg tabletIndications :Dyslipidemia Take 1 Tablet (10 mg) by mouth at bedtime. 90 Tablet 3 09/06/2023 Active allopurinoL (ZYLOPRIM) 100 mg tablet Take 100 mg by mouth. 02/20/2024 Active potassium chloride (KLOR-CON M20) 20 mEq extended-release tablet (part/cryst)Indic ations:Hypokalemi a Take 1 Tablet (20 mEq) by mouth once daily with a meal. 90 Tablet 03/04/2024 Active acetaminophen (TYLENOL) 325 mg tabletIndications :S/P cervical spinal fusion Take 2 Tablets (650 mg) by mouth every 4 hours if needed for Pain. Max acetaminophen dose: 4000mg in 24 hrs. 120 Tablet 03/04/2024 Active sennosides (SENNA) 8.6 mg tablet Take 1 Tablet (8.6 mg) by mouth 2 times daily if needed for Constipation. 03/06/2024 Active predniSONE (DELTASONE) 20 mg tabletIndications :Acute gout of left hand, unspecified cause Take 3 Tablets (60 mg) by mouth once daily with a meal for 2 days, THEN 2 Tablets (40 mg) once daily with a meal for 2 days, THEN 1 Tablet (20 mg) once daily with a meal for 2 days. 12 Tablet 03/07/2024 4 Active acetaminophen (TYLENOL) 325 mg tabletIndications :S/P cervical spinal fusion Take 2 tablets by mouth every 4 hours if needed. Max acetaminophen dose: 4000mg in 24 hrs. 120 tablet 06/01/2019 4 Discontinu ed(Reorder (E-cancel not sent)) potassium chloride (KLOR-CON M20) 20 mEq extended-release tablet (part/cryst)Indic ations:Hypokalemi a Take 1 Tablet (20 mEq) by mouth once daily with a meal. 01/10/2024 4 Discontinu ed(Reorder (E-cancel not sent)) sennosides (SENNA) 8.6 mg tablet Take by mouth two times daily. 02/20/2024 4 Discontinu ed(Reorder (E-cancel not sent)) cephalexin (KEFLEX) 250 mg capsuleIndication s:Finger pain, left Take 1 Capsule (250 mg) by mouth two times daily for 7 days. 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 19mm. follow up at [facility], 6 months Diverticulosis Resolved Problems Problem Noted Date Diagnosed Date Resolved Date Severe obesity (BMI 35.0-39. 9) with comorbidity 11/22/2016 01/01/2024 Post-operative pain 07/23/2013 05/23/20 19 Painful Hardware 03/27/2013 04/05/2013 Other secondary hypertension, benign 04/12/2006 02/06/2008 hyperglycemia 04/12/2006 02/06/2008 Other complications due to u nspecified device, implant, and graft 03/01/2006 03/22/2013 Overview: Painful hardware L2-3 Encounters Date Type Department Care Team Description 03/07/2024 11:45 AM CDT Office Visit [address] [address] Zena Yuan MD Serious Illnes Conversation; Hospital F/U; Serious Illness Conversation 03/07/2024 Travel 03/04/2024 2:15 PM CDT Ancillary Procedure [address] [address] Arrived 03/04/2024 1:40 PM CDT Office Visit [address] [address] Agustina Blake PA Hand Pain/problem 03/04/[address] [address] Zena Yuan MD orders 03/04/2024 Travel 03/04/2024 Nurse Triage [address] [address] Zena Yuan MD Finger Pain/problem 03/01/[address] [address] Zena Yuan MD Refill Request (Potassium chloride); Medication Management 02/29/[address] [address] Zena Yuan MD Questions 02/21/2024 Orders Only [facility] Scanner 1 scan: (1-Ord) [facility], RENAL, 02/21/2024 01/18/2024 3:15 PM CDT Orders Only [address] [address] [place] [facility] 01/18/2024 2:50 PM CDT Preop Visit [address] [address] Merlene Daniels, DO Pre-Op Exam (Diagnostic Laparoscopic abdominal biposies. With Dr. Burrell at [facility] FAX [phone]) 01/18/2024 Travel 01/10/2024 11:45 AM CDT Office Visit [facility] [address] [place] [address] Zena Yuan MD Hospital F/U (Dod 01/04/24) 01/10/2024 Travel 01/08/2024 Orders Only [facility] [address] [place] [address] Zena Yuan MD Outside Order (Ordered by Helen Escalera) 01/05/2024 Telephone [facility] [address] [place] [address] Zena Yuan MD Lab 01/03/2024 7:00 AM CDT Orders Only [facility] [address] [place] [address] Lab 01/03/2024 Orders Only [facility] Scanner 1 scan: (1-Ord) [place], CHEST/ABD/PELVIS W, 01/03/2024 01/02/2024 11:30 AM CDT Ancillary Procedure [facility] [address] [facility] [address] 01/02/2024 11:00 AM CDT Ancillary Procedure [facility] [address] [facility] [address] 01/02/2024 9:50 AM CDT Orders Only [facility] [address] [facility] [address] [place] 01/02/2024 Telephone [facility] [address] [facility] [address] Nona Vázquez DO Abnormal Lab Results 01/02/2024 E-Consult [facility] Cancer [place] [address] [place] [id number] Rodney Irizarry MBBS 01/02/2024 Orders Only [facility] [address] [place] [address] Jen Nguyen DO <No scans attached> 01/01/2024 10:20 AM CDT Office Visit [facility] [address] [facility] [address] Zena Yuan MD Diabetes 01/01/2024 Travel 12/23/2023 Orders Only [facility] Scanner 1 scan: (1-Ord) [facility], CT LT HIP, 12/23/2023 12/23/2023 Orders Only [facility] Scanner 1 scan: (1-Ord) [facility], NONCONTRAST CT SCAN OF PELVIS W/RE-FORMATTED [...] Outcome GA Total Labor Labor/2nd/3rd Weight Sex Type Anes PTL Marcelel A1 A5 Name Clin Last Filed Vital Signs Vital Sign Reading Time Taken Comments Blood Pressure 136/69 03/07/2024 11:52 AM CDT Pulse 71 03/07/2024 11:52 AM CDT Temperature 36.8 ??C (98.2 ??F) 03/04/2024 1:37 PM CD T Respiratory Rate 16 06/01/2019 7:50 AM CDT Oxygen Saturation 100% 03/07/2024 11:52 AM CDT Inhaled Oxygen Concentration - - Weight 73.2 kg (161 lb 6.4 oz) 03/07/2024 11:52 AM CDT Height 163.8 cm (5' 4.5) 01/18/2024 2:58 PM CDT Body Mass Index 27.28 01/18/2024 2:58 PM CDT Plan of Treatment [...] 07/04/2014, 07/20/2007 Medical Devices Implanted Type Area Health Editor Device Identifier Shelf Expiration Date Model / Serial / Lot Beto Spinal Hex End 20in Titnm Cd - [id number] Implanted:Qty: 1 on 04/27/2010 at [facility] Spine Implants N/A: Spine SOFAMOR DANEK [id number]# / / Xstop Size 14 Mm Implanted:Qty: 1 on 04/12/2006 at [facility] Spine 200 141 / / [id number] Description:XSTOP SIZE 14MM [id number] Canclls Crushed 30cc [[id number]] Implanted:Qty: 1 on 08/09/2006 at [facility] Explanted:at [facility] (Quantity not on file) Spine Allosource 05/06/2011 27 [id number]# / [id number] / Kit Infuse Lg [id number] - [id number] Implanted:Qty: 1 on 08/09/2006 at [facility] Spine SOFAMOR DANEK [id number]# / / [id number] I Hook Narrow Blade Lg Std - [id number] Implanted:Qty: 4 on 04/27/2010 at [facility] N/A: Spine SOFAMOR DANEK [id number]# / / Cnnctr Ti 5.5 16mm Crosslink - [id number] Implanted:Qty: 1 on 04/27/2010 at [facility] N/A: Spine SOFAMOR DANEK [id number]# / / Cnnctr Ti 5.5 22mm Crosslink - [id number] Implanted:Qty: 1 on 04/27/2010 at [facility] N/A: Spine SOFAMOR DANEK [id number]# / / Screw Set Break-Off Hex Titnm - [id number] Implanted:Qty: 4 on 04/27/2010 at [facility] N/A: Spine SOFAMOR DANEK 8863529# / / Kit Infuse Lg [id number] - [id number] Implanted:Qty: 1 on 04/27/2010 at [facility] Spine SOFAMOR DANEK [id number]# / / [id number] A Screw 535x50 Standard Implanted:Qty: 1 on 04/27/2010 at [facility] Spine 835 [id number] / / Description:SCREW 535X50 STA NDARD Screw 4.5x50 Standard Implanted:Qty: 1 on 04/27/2010 at [facility] Spine 835 [address] / / Description:SCREW 4.5X50 STA NDARD Screw 4.5x45 Standard Implanted:Qty: 1 on 04/27/2010 at [facility] Spine 835 [address] / / Description:SCREW 4.5X45 STA NDARD [id number] e Canclls Crushed 60cc [[id number]] Implanted:Qty: 1 on 04/27/2010 at [facility] Explanted:at [facility] (Quantity not on file) Spine Musculoskeletal Transplant 11/19/2012 [id number]# / [id number] / [id number] e Canclls Crushed 60cc [[id number]] Implanted:Qty: 1 on 04/27/2010 at [facility] Explanted:at [facility] (Quantity not on file) Spine Musculoskeletal Transplant 11/19/2012 492072# / [id number] / Set Screw 3dx - [id number] Implanted:Qty: 7 on 04/27/2010 at [facility] N/A: Spine MEDTRONIC PS MEDICAL 9225605# / / Cnnctr Tsrh 3dx Sm - [id number] Implanted:Qty: 5 on 04/27/2010 at [facility] N/A: Spine Medtronic [id number]# / / Cnnctr Tsrh 3dx Md - [id number] Implanted:Qty: 1 on 04/27/2010 at [facility] N/A: Spine Medtronic 0865701# / / Screw Thin Crest 5.5x45mm - [id number] Implanted:Qty: 2 on 04/27/2010 at [facility] N/A: Spine SOFAMOR DANEK [id number]# / / [id number] Canc 90cc Crushed Freeze Dried [[id number]][[id number]] Implanted:Qty: 1 on 07/16/2013 at [facility] Spine Musculoskeletal Transplant 12/18/2015 094841# / [id number] / [id number] Implanted:Qty: 1 on 07/16/2013 at [facility] Spine SPINAL GRAFT 06/02/2016 4 2275 / [id number] / Description:DBM IX1X10 GRAFT ON M [id number] Matrix 1x5cm Magnifuse Pcdbm [[id number]] Implanted:Qty: 1 on 07/16/2013 at [facility] Explanted:at [facility] (Quantity not on file) Spine Medtronic Spine/Ortho 05/29/2015 [id number]# / [id number] / Screw Lock 5.5mm Solera Break Off - [id number] Implanted:Qty: 6 on 07/16/2013 by Simón Hodge MD at [facility] N/A: Spine Medtronic Spine/Ortho [id number]# / / Screw Polyaxial 5.5x50 Co Cr Solera - [id number] Implanted:Qty: 2 on 07/16/2013 by Simón Hodge MD at [facility] N/A: Spine Medtronic Spine/Ortho [id number] 50# / / Screw Polyaxial 5.5x55 Co Cr Solera - [id number] Implanted:Qty: 1 on 07/16/2013 by Simón Hodge MD at [facility] N/A: Spine Medtronic Spine/Ortho [id number] 55# / / Screw Polyaxial 6.5x50 Co Cr Solera - [id number] Implanted:Qty: 1 on 07/16/2013 by Simón Hodge MD at [facility] N/A: Spine Medtronic Spine/Ortho [id number] 50# / / Screw Polyaxial 7.5x50 Co Cr Solera - [id number] Implanted:Qty: 1 on 07/16/2013 by Simón Hodge MD at [facility] N/A: Spine Medtronic Spine/Ortho [id number] 50# / / Screw Polyaxial 7.5x55 Co Cr Solera - [id number] Implanted:Qty: 1 on 07/16/2013 by Simón Hodge MD at [facility] N/A: Spine Medtronic Spine/Ortho [id number] 55# / / Beto 5.4r244xb Stra Titnm Alloy Solera - [id number] Implanted:Qty: 2 on 07/16/2013 by Simón Hodge MD at [facility] N/A: Spine Medtronic Spine/Ortho [id number]# / / Lauro Stephens Md Std - [id number] Implanted:Qty: 2 on 07/16/2013 by Simón Hodge MD at [facility] N/A: Spine Medtronic Spine/Ortho [id number]# / / Lauro Stephens Md Rmpd Thorac - [id number] Implanted:Qty: 8 on 07/16/2013 by Simón Hodge MD at [facility] N/A: Spine Medtronic Spine/Ortho [id number]# / / Screw Set Break-Off Hex Titnm - [id number] Implanted:Qty: 10 on 07/16/2013 by Simón Hodge MD at [facility] N/A: Spine Medtronic Spine/Ortho [id number]# / / Cnnctr Ti 5.5 16mm Xlink - [id number] Implanted:Qty: 1 on 07/16/2013 by Simón Hodge MD at [facility] N/A: Spine Medtronic Spine/Ortho [id number]# / / Cnnctr Ti 5.5 28mm Xlink - [id number] Implanted:Qty: 1 on 07/16/2013 by Simón Hodge MD at [facility] N/A: Spine Medtronic Spine/Ortho [id number]# / / [id number] Matrix 1cc Berwyn Plus Paste Dbm Implanted:Qty: 1 on 05/30/2019 by Josh Casillas MD at [facility] Explanted:at [facility] (Quantity not on file) N/A: Spine Medtronic Spine/Ortho 11/21/2020 [id number]# / [id number] / [id number] 4-10mm 15cc Medtronic Canclls Chips Freeze Dried Implanted:Qty: 1 on 05/30/2019 by Josh Casillas MD at [facility] Explanted:at [facility] (Quantity not on file) N/A: Spine Medtronic Spine/Ortho 09/16/2023 [id number]# / [id number] / Cage 5mm X 16mm X 14mm Implanted:Qty: 1 on 05/30/2019 by Josh Casillas MD at [facility] N/A: Spine [id number] / / 85HK Screw Cerv Ant 4x13mm Atlantistranslational Fa Slf Drill - [id number] Implanted:Qty: 2 on 05/30/2019 by Josh Casillas MD at [facility] N/A: Spine Medtronic Spine/Ortho [id number]# / / Screw Cerv Ant 4x13mm Atlantistranslational Va Slf Drill - [id number] Implanted:Qty: 2 on 05/30/2019 by Josh Casillas MD at [facility] N/A: Spine Medtronic Spine/Ortho [id number]# / / Plate Cerv 1lvl 19mmvision Elite Ant - [id number] Implanted:Qty: 1 on 05/30/2019 by Josh Casillas MD at [facility] N/A: Spine Medtronic Spine/Ortho [id number]# / / Procedures Procedure Name Priority Date/Time Associated Diagnosis Comments XR FINGER 3 VIEWS LEFT ANITA 03/04/2024 2:02 PM CDT Finger pain, left SCAN-ULTRASOUND REPORT 02/21/2024 12:00 AM CDT BASIC METABOLIC PANEL Routine 01/18/2024 3:39 PM [...] Relevant to Health Maintenance Results * XR FINGER 3 VIEWS LEFT (03/04/2024 2:02 PM CDT) Anatomical Region Laterality Modality Finger Computed Radiogr aphy 03/04/2024 2:48 PM CDT Narrative 03/04/2024 2:48 PM CDT For Patients: ??As a result of the Cures Act, medical imaging exams and procedure reports are released immediately into your electronic medical record. ??You may view this report before your referring provider. ??If you have questions, please contact your health care provider. Indication: Pain Technique: Three views left long finger Comparison: None Findings: Narrowing and spurring at the interphalangeal joints particularly the distal interphalangeal joints of the long finger and index finger. No erosions. MCP joints are maintained. No fracture. 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 Dictated by Dustin Perez MD @ 03/04/2024 2:48:45 PM (Electronically Signed) Procedure Note Dustin Perez MD - 03/04/2024 For Patients: As a result of the Cures Act, medical imagingexams and procedure reports are released immediately into your electronicmedical record. You may view this report before your referring provider.If you have questions, please contact your health care provider. Indication: Pain Technique: Three views left long finger Comparison: None Findings: Narrowing and spurring at the interphalangeal joints particularly thedistal interphalangeal joints of the long finger and index finger. Noerosions. MCP joints are maintained. No fracture. Impression: Moderate degenerative joint disease at the long finger distalinterphalangeal joint and PIP joint. Dictated by Dustin Perez MD @ 03/04/2024 2:48:45 PM (Electronically Signed) [facility] G * SCAN-ULTRASOUND REPORT (02/21/2024 12:00 AM CDT) Anatomical Region Laterality Modality Other Scanner OTHER * (ABNORMAL) BASIC METABOLIC PANEL (01/18/2024 3:39 PM CDT) Only the most recent of2 resultswithin the time period is included. SODIUM 136 136 - 145 mmol/L 01/19/2024 2:26 PM CDT [facility] POTASSIUM 3.6 3.5 - 5.1 mmol/L 01/19/2024 2:26 PM CDT [facility] CHLORIDE 98 98 - 107 mmol/L 01/19/2024 2:26 PM CDT [facility] CO2,TOTAL 26 22 - 29 mmol/L 01/19/2024 2:26 PM CDT [facility] ANION GAP 12 5 - 18 01/19/2024 2:26 PM CDT [facility] GLUCOSE 180(H) 70 - 99 mg/dL 01/19/2024 2:26 PM CDT [facility] CALCIUM 11.1(H) 8.8 - 10.2 mg/dL 01/19/2024 2:26 PM CDT [facility] BUN 23 8 - 23 mg/dL 01/19/2024 2:26 PM CDT [facility] CREATININE 1.27(H) 0.50 - 0.90 mg/dL 01/19/2024 2:26 PM T [facility] BUN/CREAT RATIO 18 10 - 20 2:26 PM CDT [facility] eGFR 42(L) >90 mL/min/1.7 3m2 01/19/2024 2:26 PM CDT [facility] Comment:As of 2021, eG FR is calculated by the CKD-EPI creatinine equation without race adjustment. ??eGFR can be influenced by muscle mass, exercise, and diet. ??The reported eGFR is an estimation only and is only applicable if the renal function is stable. Blood BLOOD SPECIMEN / Unknown Venipuncture / Unknown 01/18/2024 3:39 PM CDT 01/18/2024 3:40 PM CDT Zena Yuan MD CHEMISTRY [facility] [address] [place] [address], * (ABNORMAL) CA 125 (01/10/2024 12:42 PM CDT) CA 125 1,068.0(H) <38.2 U/mL 01/11/2024 12:14 AM CDT [facility] Blood BLOOD SPECIMEN / Unknown Venipuncture / Unknown 01/10/2024 12:42 PM CDT 01/10/2024 12:45 PM CDT Narrative [facility] - 01/11/2024 12:14 AM CDT The test method changed on 09/20/2022. If this test has been used for serial monitoring, rebaselining is recommended. Rebaselining consists of 2 measurements, collected 3-6 weeks apart. The [employer] CA 125 assay is an electrochemiluminescence immunoassay ECLIA performed on the Apothesourceas e immunoassy analyzers. ?? Values obtained with different assay methods may be different and cannot be used interchangeably. ? Biotin supplements may cause clinically significant interference for this test assay. If interference is suspected, it is strongly recomended that biotin is discontinued for at least one week prior to retesting. Zena Yuan MD CHEMISTRY Performing Organization Address [facility] Co de Phone Number [facility] [address] [place] [address], * CA 19-9 (01/10/2024 12:42 PM CDT) CA 19-9 8 <36 IU/mL 01/11/2024 12:06 AM CDT [facility] Blood BLOOD SPECIMEN / Unknown Venipuncture / Unknown 01/10/2024 12:42 PM CDT 01/10/2024 12:45 PM CDT [facility] - 01/11/2024 12:06 AM CDT The [...] to retesting. Zena Yuan MD SEND OUTS [facility] [address] [place] [address], * CEA (01/10/2024 12:42 PM CDT) CEA 0.9 ng/mL 01/11/2024 12:06 AM CDT [facility] Blood BLOOD SPECIMEN / Unknown Venipuncture / Unknown 01/10/2024 12:42 PM CDT 01/10/2024 12:45 PM CDT Narrative [facility] - 01/11/2024 12:06 AM CDT ?CEA [...] Zena Yuan MD CHEMISTRY Performing Organization Address City/[facility]/ZIP Co de Phone Number [facility] [address] [place] [address], * OCCULT BLOOD IFOBT STOOL (01/03/2024 1:02 PM CDT) STOOL BLOOD ,IFOBT Negative Negative 01/05/2024 2:[address] [facility] Stool STOOL SPECIMEN / Unknown Non-Blood / Unknown 01/03/2024 1:02 PM CDT 01/05/2024 1:02 PM CDT Zena Yuan MD LABORATORY Performing Organization Address [facility] Number [facility] [address] [place] [address], * SCAN-CT INTERPRETATION (01/03/2024 12:00 AM CDT) [...] lower pelvic peritoneal mass measuring 2.5 cm ([id number], series 11). There is hazy density and [...] For Patients: ??As a result of the 21st Century Cures Act, medical imaging exams and [...] None Seen /HPF 01/02/2024 11:18 AM CDT [facility] WBC 3-5 0-2, 3-5, None Seen /HPF 01/02/2024 11:18 AM CDT [facility] BACTERIA Few None Seen, Rare, Few Bacteria/ HPF 01/02/2024 11:18 AM CDT [facility] EPITHELIAL CELLS Few None Seen, Few Epi/HPF 01/02/2024 11:18 AM CDT [facility] HYALINE CASTS 3-5 0-2, 3-5 /LPF 01/02/2024 11:18 AM CDT [facility] CALCIUM OXALATE CRYSTALS Present(A) (none) 01/02/2024 11:18 AM CDT [facility] Urine URINE SPECIMEN / Unknown Non-Blood / Unknown 01/02/2024 11:04 AM CDT 01/02/2024 11:04 AM CDT Zena Yuan MD URINE [facility] [address] [place] [address], [place] [phone] * (ABNORMAL) PROTEIN ELP,URINE RANDOM (01/02/2024 11:04 AM CDT) ELP INTERP, URINE Mild proteinuria, non-selective pattern, tubulointerstitial or mixed glomerular-tubular disease. Possible renal insufficiency. No monoclonal protein detected. Interpreted and electronically signed by: Miriam Mansfield MD 01/03/2024 5:12 PM CDT [facility]TRAL LAB[facility] PROTEIN QUANT,RAND URINE 42(H) 1 - 14 mg/dL 01/03/2024 5:12 PM CDT [facility] Urine URINE SPECIMEN / Unknown Non-Blood / Unknown 01/02/2024 11:04 AM CDT 01/02/2024 11:04 AM CDT Zena Yuan MD URINE [facility] [address] [place] [address], [place] * (ABNORMAL) UA W/ SEDIMENT EXAM REFLEXED PER CRITERIA (01/02/2024 11:04 AM CDT) COLOR Yellow Yellow Color 01/02/2024 11:19 AM CDT [facility] CLARITY Clear Clear Clarity 01/02/2024 11:19 AM CDT [facility] SPECIFIC GRAVITY,URINE >=1.030(A) 1.010, 1.015, 1.020, 1.025 01/02/2024 11:19 AM CDT [facility] PH,URINE 5.5 6.0, 7.0, 8.0, 5.5, 6.5, 7.5, 8.5 01/02/2024 11:19 AM CDT [facility] UROBILINOGEN, QUALITATIVE Normal Normal EU/dl 01/02/2024 11:19 AM CDT [facility] PROTEIN, URINE 30(A) Negative mg/dL 01/02/2024 11:19 AM CDT [facility] GLUCOSE, URINE Negative Negative mg/dL 01/02/2024 11:19 AM CDT [facility] KETONES,URINE Negative Negative mg/dL 01/02/2024 11:19 AM CDT [facility] BILIRUBIN,URI NE Negative Negative 01/02/2024 11:19 AM CDT [facility] OCCULT BLOOD,URINE Negative Negative 01/02/2024 11:19 AM CDT [facility] NITRITE Negative Negative 01/02/2024 11:19 AM CDT [facility] LEUKOCYTE ESTERASE Trace(A) Negative 01/02/2024 11:19 AM CDT [facility] Urine URINE SPECIMEN / Unknown Non-Blood / Unknown 01/02/2024 11:04 AM CDT 01/02/2024 11:04 AM CDT Zena Yuan MD URINE [facility] [address] [place] [address], * (ABNORMAL) PROTEIN ELP SERUM W REFLEX (01/02/2024 10:58 AM CDT) ELP,ALBUMIN 3.56 3.31 - 5.31 g/dL 01/05/2024 5:21 PM CDT [facility] ELP,ALPHA 1 0.48(H) 0.19 - 0.42 g/dL 01/05/2024 5:21 PM CDT [facility] ELP,ALPHA 2 0.77 0.44 - 1.03 g/dL 01/05/2024 5:21 PM CDT [facility] ELP,GAMMA 0.44(L) 0.59 - 1.46 g/dL 01/05/2024 5:21 PM [facility]T [facility] [facility] ELP,BETA 0.74 0.52 - 1.05 g/dL 01/05/2024 5:21 PM CDT [facility] MONOCLONAL PEAK 1 0.06 <=0.00 g/dL 01/05/2024 5:21 PM CDT [facility] ELP INTERP,SERUM Monoclonal protein detected in gamma region, confirmed by immunofixation. Interpreted and electronically signed by: Jyoti Melo MD 01/05/2024 5:21 PM CDT [facility] PROTEIN,TOTAL 6.0 6.0 - 8.0 g/dL 01/05/2024 5:21 PM CDT [facility] Blood BLOOD SPECIMEN / Unknown Butterfly / Unknown 01/02/2024 10:58 AM CDT 01/02/2024 11:01 AM CDT Zena Yuan MD CHEMISTRY [facility] [address] [place] [address], * PARATHYROID HORMONE-RELATED PEPTIDE (PTH-RP) (01/02/2024 10:58 AM CDT) PTH Related Peptide <2.0 pmol/L 01/05 1:11 PM CDT [facility] Comment: This test was developed and its performance characteristics determined by [facility]. It has not been cleared or approved [...] 10:58 AM CDT 01/02/2024 11:01 AM CDT Narrative [facility] ([facility]ET) - 01/06/2024 1:11 PM CDT Performed at: ??01 - [facility] [address] [place] [address] ??[id number] Shipping Weigher: Keith Lopez MD, Phone: ??[phone] Zena Yuan MD SEND OUTS Performing Organization Address [facility]/ZIP Co de Phone Number [facility] ([facility]) [address] [place] [address] * (ABNORMAL) CALCITRIOL(1 25 DI OH VIT D) (01/02/2024 10:58 AM CDT) [facility] Vit D 1,25 di OH 137.0(H) 24.8 - 81.5 pg/mL 01/04/2024 1:11 PM CDT [facility] ([facility]) Blood BLOOD SPECIMEN / Unknown Butterfly / Unknown 01/02/2024 10:58 AM CDT 01/02/2024 11:01 AM CDT Narrative [facility] (CET) - 01/04/2024 1:11 PM CDT Performed at: ??01 - [address] ??[id number] Shipping Weigher: Gia Pritchett MD, Phone: ??[phone] Zena Yuan MD SEND OUTS Performing Organization Address [facility] de Phone Number [facility] ([facility]) [address] [place] [address], * (ABNORMAL) IMMUNOFIXATION,SERUM (01/02/2024 10:58 AM CDT) [facility] IGG 390.13(L) 610.30 - 1,616.00 mg/dL 01/05/2024 5:21 PM CDT [facility] IGA 140.84 84.50 - 499.00 mg/dL 01/05/2024 5:21 PM CDT [facility] IGM 109.21 35.00 - 242.00 mg/dL 01/05/2024 5:21 PM CDT [facility] IFIX INTERP,SERUM Immunofixation on serum shows [...] Jyoti Melo MD 01/05/2024 5:21 PM CDT [facility] Jibe [facility]- [facility] Blood BLOOD SPECIMEN / Unknown Butterfly / Unknown 01/02/2024 10:58 AM CDT 01/02/2024 11:01 AM CDT Zena Yuan MD CHEMISTRY Performing Organization Address City/[facility]/ZIP Co de Phone Number [facility] [address] [place] [address], * (ABNORMAL) PTH,INTACT (01/02/2024 10:58 AM CDT) CALCIUM 13.8(HH) 8.8 - 10.2 mg/dL 01/02/2024 11:00 PM CDT [facility] PTH,INTACT 10.2(L) 15.0 - 69.0 pg/mL 01/02/2024 11:00 PM CDT [facility] Blood BLOOD SPECIMEN / Unknown Butterfly / Unknown 01/02/2024 10:58 AM CDT 01/02/2024 11:01 AM CDT Zena Yuan MD SEND OUTS [facility] [address] [place] [address], * SEDIMENTATION RATE (01/01/2024 11:20 AM CDT) SEDIMENTATION RATE 9 <30 mm/hr 2023 10:20 PM CDT [facility] Jibe [facility] Blood BLOOD SPECIMEN / Unknown Venipuncture / Unknown 01/01/2024 11:20 AM CDT 01/01/2024 11:25 AM CDT Zena Yuan MD HEMATOLOGY [facility] [address] [place] [address], * (ABNORMAL) CBC WITH AUTO DIFFERENTIAL (01/01/2024 11:20 AM CDT) WHITE BLOOD COUNT 5.6 4.5 - 11.0 thou/cu mm 01/01/2024 11:48 AM CDT [facility] RED BLOOD COUNT 3.94(L) 4.00 - 5.20 mil/cu mm 01/01/2024 11:48 AM CDT [facility] HEMOGLOBIN 11.7(L) 12.0 - 16.0 g/dL 01/01/2024 11:48 AM CDT [facility] HEMATOCRIT 34.5 33.0 - 51.0 % 01/01/2024 11:48 AM CDT [facility] MCV 88 80 - 100 fL 01/01/2024 11:48 AM CDT [facility] MCH 29.7 26.0 - 34.0 pg 01/01/2024 11:48 AM CDT [facility] MCHC 33.9 32.0 - 36.0 g/dL 01/01/2024 11:48 AM CDT [facility] RDW 12.6 11.5 - 15.5 % 01/01/2024 11:48 AM CDT [facility] PLATELET COUNT 182 140 - 440 thou/cu mm 01/01/2024 11:48 AM CDT [facility] MPV 10.5 6.5 - 11.0 fL 01/01/2024 11:48 AM CDT [facility] % NEUT 76.0 % 01/01/2024 11:48 AM CDT [facility] % LYMPH 12.8 % 01/01/2024 11:48 AM CDT [facility] % MONO 10.3 % 01/01/2024 11:48 AM CDT [facility] % EOS 0.7 % 01/01/2024 11:48 AM CDT [facility] % BASO 0.2 % 01/01/2024 11:48 AM CDT [facility] ABSOLUTE NEUTROPHILS 4.3 1.7 - 7.0 thou/cu mm 01/01/2024 11:48 AM CDT [facility] ABSOLUTE LYMPHOCYTES 0.7(L) 0.9 - 2.9 thou/cu mm 01/01/2024 11:48 AM CDT [facility] ABSOLUTE MONOCYTES 0.6 <0.9 thou/cu mm 01/01/2024 11:48 AM CDT [facility] ABSOLUTE EOSINOPHILS 0.0 <0.5 thou/cu mm 01/01/2024 11:48 AM CDT [facility] ABSOLUTE BASOPHILS 0.0 <0.3 thou/cu mm 01/01/2024 11:48 AM CDT [facility] Blood BLOOD SPECIMEN / Unknown Venipuncture / Unknown 01/01/2024 11:20 AM CDT 01/01/2024 11:25 AM CDT Zena Yuan MD HEMATOLOGY [facility] [address] [place] [address], * TSH WITH REFLEX (01/01/2024 11:20 AM CDT) TSH 2.89 0.27 - 4.20 uIU/mL 01/01/2024 11:44 PM CDT [facility] Blood BLOOD SPECIMEN / Unknown Venipuncture / Unknown 01/01/2024 11:20 AM CDT 01/01/2024 11:25 AM CDT Narrative [facility] - 01/01/2024 11:44 PM CDT In Adults, TSH values between 5.00 and 10.00 uIU/ml do not necessarily indicate the presence of Hypothyroidism. Correlation with clinical findings such as presence of goiter and/or Thyroperoxidase (TPO) Antibody may be helpful. For more information please refer to LEONA 2004; 291: 228-238. Zena Yuan MD CHEMISTRY Performing Organization Address [facility] Co de Phone Number [facility] [employer] [facility] [address] [place] [address], * VITAMIN D 25 (DEFICIENCY) (01/01/2024 11:20 AM CDT) VITAMIN D TOTAL 79.1 20.0 - 80.0 ng/mL 01/02/2024 9:36 AM CDT [facility] Blood BLOOD SPECIMEN / Unknown Venipuncture / Unknown 01/01/2024 11:20 AM CDT 01/01/2024 11:25 AM CDT Narrative [facility] - 01/02/2024 9:36 AM CDT ? Vitamin D Status Deficiency: ? <20 ng/mL Insufficiency: ?20-29 ng/mL Sufficiency: ?30-80 ng/mL Possible Toxicity: ??>80 ng/mL Based on [place] of Medicine recommendations Biotin supplements may cause clinically significant interference for this test assay. ??If interference is suspected, it is strongly recommended that biotin is discontinued for at least one week prior to retesting. Zena Yuan MD SEND OUTS Performing Organization Address [facility] de Phone Number [facility] [place] [facility] [address] [place] [address], * (ABNORMAL) C-REACTIVE PROTEIN (01/01/2024 11:20 AM CDT) C-REACTIVE PROTEIN 2.3(H) <0.5 mg/dL 01/01/2024 11:44 PM CDT [facility] Blood BLOOD SPECIMEN / Unknown Venipuncture / Unknown 01/01/2024 11:20 AM CDT 01/01/2024 11:25 AM CDT Zena Yuan MD CHEMISTRY Performing Organization Address [facility] Co de Phone Number [facility] [address] [place] [address], * (ABNORMAL) COMP METABOLIC PANEL (01/01/2024 11:20 AM CDT) SODIUM 136 136 - 145 mmol/L 01/02/2024 1:19 AM [facility] POTASSIUM 3.7 3.5 - 5.1 mmol/L 01/02/2024 1:19 AM [facility] CHLORIDE 95(L) 98 - 107 mmol/L 01/02/2024 1:19 AM T [facility] CO2,TOTAL 28 22 - 29 mmol/L 01/02/2024 1:19 AM [facility] ANION GAP 13 5 - 18 01/02/2024 1:19 AM [facility] GLUCOSE 135(H) 70 - 99 mg/dL 01/02/2024 1:19 AM [facility] CALCIUM 13.1(HH) 8.8 - 10.2 mg/dL 01/02/2024 1:19 AM [facility] BUN 25(H) 8 - 23 mg/dL 01/02/2024 1:19 AM [facility] CREATININE 1.35(H) 0.50 - 0.90 mg/dL 01/02/2024 1:19 AM [facility] BUN/CREAT RATIO 19 10 - 20 4 1:19 AM [facility] eGFR 39(L) >90 mL/min/1. 73m2 01/02/2024 1:19 AM [facility] Comment:As of 2021, eG FR is calculated by the CKD-EPI creatinine equation without race adjustment. ??eGFR can be influenced by muscle mass, exercise, and diet. ??The reported eGFR is an estimation only and is only applicable if the renal function is stable. ALBUMIN 4.3 4.0 - 4.9 g/dL 01/02/2024 1:19 AM T [facility] PROTEIN,TOTAL 6.5 6.0 - 8.0 g/dL 01/02/2024 1:19 AM CDT [facility] BILIRUBIN,TOTAL 0.5 0.0 - 1.2 mg/dL 01/02/2024 1:19 AM CDT [facility] ALK PHOSPHATASE 91 35 - 104 IU/L 01/02/2024 1:19 AM CDT [facility] ALT (SGPT) 11 10 - 35 IU/L 01/02/2024 1:19 AM CDT [facility] AST (SGOT) 24 10 - 35 IU/L 01/02/2024 1:19 AM CDT [facility] Blood BLOOD SPECIMEN / Unknown Venipuncture / Unknown 01/01/2024 11:20 AM CDT 01/01/2024 11:25 AM CDT Zena Yuan MD CHEMISTRY [facility] [address] [place] [address], * HEMOGLOBIN A1C MONITORING (POCT) (01/01/2024 10:12 AM CDT) HEMOGLOBIN A1C MONITORING (POCT) 5.9 <=6.4 % 01/01/2024 10:33 AM CDT [facility] Blood BLOOD SPECIMEN / Unknown Venipuncture / Unknown 01/01/2024 10:12 AM CDT 01/01/2024 10:13 AM CDT Narrative [facility] - 01/01/2024 10:33 AM CDT ? (<=6.9%) [...] Anemias, Splenectomy ? Zena Yuan MD CHEMISTRY [facility] [address] [place] [address], * SCAN-RADIOLOGY REPORT (12/23/2023 12:00 AM CDT) [...] recommended in 3-5 years. Tashia Maldonado PA-C [facility] 03/09/2021 Narrative 03/09/2021 1:55 PM CDT XR DXA Bone Mineral Density (BMD) EXAM LOCATION: [facility] [address] [facility] [address] PATIENT NAME: Kendal Pelayo DATE OF : [...] two scanners are made by the same electronics scale tester. PROCEDURE: Dual-energy x-ray absorptiometry performed with routine [...] Documents on File Type Date Recorded Patient Inspector Advanced Composite Expl anation POLST 02/29/2024 Healthcare Directive 04/06/2010 * Full Code (Latest [...] 11:59 AM 04/03/2013 2:53 PM Care Teams Hangar Attendant Relationship Specialty Start Date End Date [place] [address] PCP - General Family Practice 09/30/13 [facility], [facility] 07/22/13 [facility] 01/28/11 Dr. Gilbert Knox 01/28/11
--- OUTSIDE RECORDS SUMMARY | 2024-03-08 15:44 | XMS_ITS | Encounter Summary ---
Author Organization [facility] Address [address] [place] [address] Care Team Providers Care Seconds Inspector Name Role Phone Unavailable Primary Care Provider [...] disease. Neck X-ray negative. CT scan at [facility] negative. No neurologic evaluation. + photophobia with severe h/a, no change in vision/fortification spectra; migraine h/a 20 years ago on OCP, resolved off OCP. No smoking. No conj injection noted with increased tearing. 1 episode left mid-facial pain last year dx'd clinically as max sinusitis, resolved with oral Ab tx.No significant incr pain on EOM. Dr. Ramon Molina of [place] follows Mrs. Marcus from the ophthalmic viewpoint and Dr. Chase Hook [facility] from the medical viewpoint. IMPRESSION / REPORT [...] cavernous sinus. Mrs. Mae is traveling to [place] 07/29 and at her request we will try to coordinate her evaluation here priorto departure. If this is not possible, Mrs. Marcus indicates she has been seen at [facility] and would be happyto return there for completion of her evaluation. I have asked her to call me after she has her CT if done here, and have taken the liberty of giving Mrs. Mae the name of Dr. Dustin Brennan as an outstanding specialist in terms of her ongoing evaluation if necessary at [facility]. Letter dict to Miladys Pittman, and Mika. corresp: August 04, 2003 Javier Molina M.D. [facility] [address] [address] RE: Mrs. Dipika Franco #: [phone] : [phone] [address] Molina: Thank you very much for referring Mrs. Franco for orbital and oculoplastic evaluation. Enclosed, please find a copy of her consult note which further outlines her exam findings here. With your permission, Mrs. Franco's further evaluation will be coordinated through [facility] and [facility], in view of her upcoming travels to [place] this winter. We will certainly keep you posted concerning her subsequent course here. I have taken the liberty of forwarding a copy of this note to her manufacturing accountant, Dr. Armand Rendon, as requested by Mrs. Franco. Thank you, again, for allowing me to share in the care of this most pleasant patient. Best wishes. Sincerely, Mikey Murillo:sr enclosure - cdm report of 07/17/03 cc: Dr. Armand Rendon, [place], [place] Dr. Dustin Brennan, [facility] DIAGNOSIS #1 left supraorbital/periorbital/hemicranial pain #2 intermittent tearing OS with patent lacrimal outflow system. #3 left rhinorrhea CDM Reports - EYEGEN Id: [id number] Status: Fnl documented in this encounter Plan of Treatment Not on file documented as of this encounter Visit Diagnoses Not on filedocumented in this encounter
--- OUTSIDE RECORDS SUMMARY | 2024-03-08 15:44 | XMS_ITS | Encounter Summary ---
Author Organization [facility] Address [address] [place] [address] Care Team Providers Care Crutcher Helper Name Role Phone Unavailable Primary Care Provider [...] patient reports bradycardia with the [place] in [place] and was placed on Norvasc by the physicians in [place]. She reports migraines have gone away with [...] Vision OS CDM Reports - EYEGEN Id: [id number] Status: Fnl documented in this encounter Plan of Treatment Not on file documented as of this encounter Visit Diagnoses Not on filedocumented in this encounter
--- OUTSIDE RECORDS SUMMARY | 2024-03-08 15:44 | XMS_ITS | Referral Summary ---
Author Organization [facility] Address [address] [place] [address] Care Team Providers Care Steam Table Attendant Name Role Phone Unavailable Primary Care Provider Unavailabl e Source Comments Patient records contain information from all sites at [facility]. For routine questions regarding patient records, call [phone] during business hours, M-F 8:00 AM - 5:00 PM Central Time. Record requests for emergency care only can be directed to [phone] at any time.[facility] Allergies Active Allergy Reactions Criticality Noted Date [...] on file Medical Devices Implanted Type Area Veterinary Radiologist Device Identifier Shelf Expiration Date Model / Serial / Lot Tmj-Fossa Screw 2.0 X 8mm - Matos [id number] Implanted:Qty: 1 on 04/25/2008 [facility] [place] Left: Other/Legacy - See Implant Description TMJ Implants Description:Device Manufactu rer - [employer] Body Location - Left. Device Status Text - [id number]. Tmj-Custom Implant - Matos [id number] Implanted:Qty: 1 on 04/25/2008 Mis Prosthesis Left: Other/Legacy - See Implant Description Other/Legacy - See Implant Description Description:Device Manufactu rer - [facility]. Body Location - Left. Device Status Text - [id number]. Tmj-Fossa Screw 2.0 X 8mm - Matos [id number] Implanted:Qty: 1 on 04/25/2008 Mis Prosthesis Left: Other/Legacy - See Implant Description [employer]J Implants Description:Device Manufactu rer - [employer] Body Location - Left. Device Status Text - [id number]. Tmj-Custom Implant - Matos [id number] Implanted:Qty: 1 on 01/20/2017 [facility] [place] Other/Legacy - See Implant Description TMJ Implants Description:Device Manufactu rer - [employer] Body Location - Other. Right. Device Status Text - [id number].
== END 2024-02-22 20:47 | disposition home or self-care (01) ==
LOC: AMB 03-08 15:40
PROVIDERS: PCP Family Medicine; Visit Provider Family Medicine
DX: C82.90 Follicular lymphoma, unspecified, unspecified site (principal); N17.9 Acute kidney failure, unspecified; E88.3 Tumor lysis syndrome; R53.1 Weakness
CPT/HCPCS: A0425; A0426

== ENCOUNTER 2024-03-28 10:36 | Outpatient (RCR) | payer SELFPAY | END 2025-03-18 11:15 | disposition home or self-care (01) | LOC: MOW 10:36 | PROVIDERS: PCP Family Medicine; Visit Provider Family Medicine | DX: Z76.0 Encounter for issue of repeat prescription (principal) | CPT/HCPCS: S5170 ==

== ENCOUNTER 2024-04-23 14:08 | Outpatient (CLI) | payer MEDICARE, OTHER, SELFPAY ==
--- OUTSIDE RECORDS SUMMARY | 2024-04-23 14:12 | XMS_ITS | Encounter Summary ---
Author Organization [facility] Address [address] [place] [address] Care Team Providers Care Iv Rn Name Role Phone Zena Yuan MD Primary Care Provider [phone] Encounter Details Date Type Department Care Team (Late st Contact Info) Description 03/29/2024 Telephone [facility] Interventional Radiology [address] [facility]. [place] [id number] Juanito Hamm, RN Social History Tobacco Use Types Packs/Day [...] on file documented as of this encounter Miscellaneous Notes * Telephone Encounter - Juanito Hamm, RN - 03/29/2024 3:46 PM CDT The following was shared with Dipika over the phone: INTERVENTIONAL RADIOLOGY INSTRUCTIONS You are scheduled for an upcoming procedure in the Interventional Radiology Department at [facility]. Date: 04/04/24 Procedure: Chest Port Placement Address: [address] [address] Check into the Interventional Radiology Department at: 8:00 am Do not eat anything after midnight the night prior to the day of your procedure. You may have sips of clear liquids up until 2 hours prior to arrival for appointment. We suggest wearing loose, comfortable clothing. Two visitors may accompany you to your procedure. You are required to have someone available to drive you home. We recommend a responsible adult stay with you for 6 hours after discharge to home. Please bring a list of your current medications. Morning medications may be taken on the day of your procedure with sips of clear fluids (do not eat). Please do not take your diabetic medications. Please plan for 2-3 hours spent in the Interventional Radiology Department. This will include: Pre-procedure Time Procedure Time Recovery Time. If you have any questions, please call the Interventional Radiology team at [phone]. Thank you! Dario Warner Interventional Radiology Intake Nurse Coordinator [phone] documented in this encounter Plan of Treatment Not on file documented as of this encounter Goals Goal Patient Goal Type Associated Problems Recent Progress Patient-Stated? Author MYC ECC SURG ENROLL Care Plan MyC ECC SURG ENROLL No Camille Torres documented as of this encounter Visit Diagnoses Not on filedocumented in this encounter Additional Health Concerns Active Problems Noted Date Diagnosed Date MyC ECC SURG ENROLL 01/17/2024 documented as of this encounter Care Teams Iv Rn Relationship Specialty Start Date End Date Zena Yuan MD [address] [place] [address] PCP - General Family Medicine 01/11/24 documented as of this encounter
--- OUTSIDE RECORDS SUMMARY | 2024-04-23 14:12 | XMS_ITS ---
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 Past Plans No past plan information found. Radiation Treatments * No radiation treatments are documented for this patient in [facility]. Treatments may have been administered in another system. Lifetime Dose Tracking * Chemical Lifetime Dose Automatic Entry Manual Entr y Total Air Kerma 5 mGy 5 mGy 0 mGy Fluoro Time 1 Minutes 1 Minutes 0 Minutes
--- OUTSIDE RECORDS SUMMARY | 2024-04-23 14:12 | XMS_ITS | Clinical Summary ---
Author Organization [facility] Address [address] [place] [address] Care Team Providers Care Client Experience Administrator Name Role Phone Zena Yuan MD [...] Encounters Date Type Department Care Team Description 04/04/2024 7:42 AM CDT - 04/04/2024 10:51 AM CDT Hospital Encounter [facility] [address] [place] [phone] Juliana Sher, Uche Burger MD Follicular lymphoma grade II of lymph nodes of multiple sites (H) Discharge Disposition: Home or Self Care 03/29/2024 Telephone [facility] Interventional Radiology [address] [place] [phone] Juanito Hamm RN 02/22/2024 10:14 PM CDT - 02/29/2024 12:13 PM CDT Hospital Encounter [facility] [address] [place] [phone] Mathew Chen MD [place], MD [facility], Margarita Nath MD Constipation, unspecified constipation type (Primary Dx); Tumor lysis syndrome Discharge Disposition: Home-Health Care [facility] 01/22/2024 1:10 PM CDT - 01/22/2024 2:40 PM CDT Surgery [facility] PeriOP Services [address] [place] [phone] Helen Escalera MD DIAGNOSTIC LAPAROSCOPY, OMENTAL BIOPSIES, AND EVACUATION OF ASCITES 01/22/2024 1:08 PM CDT Anesthesia Event [facility] PeriOP Services [address] [place] [phone] DentonRupesh MD Dennen, Kristina Nguyen, PHYSICIAN GYNECOLOGIST REFRESH TECHNICIAN 01/22/2024 11:36 AM CDT - 01/22/2024 4:29 PM CDT Hospital Encounter [facility] PreOP/Phase II [address] [place] [phone] Helen Escalera MD Carcinomatosis (H) (Primary Dx) Discharge Disposition: Home or Self Care from Last 3 Months Social History Tobacco [...] Sign Reading Time Taken Comments Blood Pressure 157/61 04/04/2024 10:24 AM CDT Pulse 63 04/04/2024 10:24 AM CDT Temperature 36.4 ??C (97.6 ??F) 04/04/2024 7:53 AM CD T Respiratory Rate 16 04/04/2024 10:2 4 AM CDT Oxygen Saturation 92% 04/04/2024 10: 24 AM CDT Inhaled Oxygen Concentration - - [...] ANNUAL WELLNESS VISIT 04/05/2024 04/05/2023, 03/30/2022, 02/26/2021 INFLUENZA VACCINE (#1) 2024 , 06/25/2022, 06/03/2021, Additional history exists Pneumococcal Vaccine: 65+ Years Completed 06/23/2015, 06/28/2010, 07/19/2006, Additional history exists ZOSTER IMMUNIZATION Completed 09/09/2019, 07/11/2019, 06/27/2011, Additional history exists HPV IMMUNIZATION Aged Out [...] MyC ECC SURG ENROLL No Camille Torres Medical Devices Implanted Type Area Shuttle Filler Device Identifier Shelf Expiration Date Model / Serial / Lot Port-04/04/2024 Implanted:Qty: 1 on 04/04/2024 by Uche Douglas MD Port Right: Chest Wall [id number] 01/15/2027 / / [id number] Procedures Procedure Name Priority Date/Time Associated Diagnosis Comments IR CHEST PORT PLACEMENT > 5 YRS OF AGE Priority: 1-2 Weeks 04/04/2024 9:38 AM CDT Follicular 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 UCHE DOUGLAS MD Narrative 04/04/2024 10:14 AM CDT RESERVE RADIOLOGY EXAM: IMPLANTABLE RIGHT INTERNAL JUGULAR CHEST PORT PLACEMENT CLINICAL HISTORY: The patient has a history of lymphoma and needs long-term access for chemotherapy. PROCEDURES PERFORMED: Ultrasound guided puncture of the internal jugular vein. Creation of subcutaneous tunnel in chest wall. Placement of a jugular PowerPort. MODERATE SEDATION: IV fentanyl and Versed were administered intravenously for moderate sedation. Pulse oximetry, heart rate and blood pressure were continuously monitored by an independent trained observer. The physician spent 50 minutes of [id number]-tn-[id number] moderate sedation time with the patient. ADDITIONAL MEDICATIONS: see EMR CONTRAST: none FLUOROSCOPIC TIME: 1.0 minutes CUMULATIVE AIR KERMA/DOSE: ??5 mGy. STERILE BARRIER TECHNIQUE: Maximal Sterile Barrier Technique Utilized: Cap AND mask AND sterile gown AND sterile gloves AND sterile full body drape AND hand hygiene AND skin preparation 2% chlorhexidine for cutaneous antisepsis (or acceptable alternative antiseptics). ?? Sterile Ultrasound Technique Utilized ?Sterile gel AND sterile probe covers. UNIVERSAL PROTOCOL: Standard universal protocol per facility guidelines was followed. See EMR for documentation. TECHNIQUE: Risks, benefits and alternatives were explained to the patient in detail. ??All questions were answered. ??Written, informed consent was given to proceed with the procedure. The patient was then brought to the angiography suite and placed in the supine position. The neck and chest prepped and draped in the usual sterile fashion. One percent lidocaine was used for local anesthesia. Then, under ultrasound guidance, the internal jugular vein was accessed with a micropuncture system. An 0.035 guidewire which was advanced into the IVC under fluoroscopic guidance. A subcutaneous pocket was then created in the chest wall, inferior to the clavicle. The port was then placed into the pocket. A subcutaneous tunnel was created between the port pocket and the venous access site using blunt dissection. The port catheter was attached to a tunneling device and brought through the tunnel. It was then measured and cut to the appropriate length. The venous access site was serially dilated and a peel away sheath was advanced over the wire and into the SVC under direct fluoroscopic visualization. ??The catheter was placed through the peel-away sheath into the SVC. The port was accessed, tested and flushed with with 5 cc of 100 units/cc heparinized saline solution. ??The chest wall incision was closed with absorbable suture and surgical glue. ?? FINDINGS: The right internal jugular vein is anechoic, compressible and patent by ultrasound, and ultrasound images obtained during access show the needle within the vein. Ultrasound images have been permanently captured for documentation. Fluoroscopic images obtained following placement of the port, show that the catheter terminates near the cavoatrial junction. The catheter has a smooth course in the chest wall. The catheter functions well and is available for immediate use. Procedure Note Uche Douglas MD - 04/04/2024 RESERVE RADIOLOGY EXAM: IMPLANTABLE RIGHT INTERNAL JUGULAR CHEST PORT PLACEMENT CLINICAL HISTORY: The patient has a history of lymphoma and needs long-term access for chemotherapy. PROCEDURES PERFORMED: Ultrasound guided puncture of the internal jugular vein. Creation of subcutaneous tunnel in chest wall. Placement of a jugular PowerPort. MODERATE SEDATION: IV fentanyl and Versed were administered intravenously for moderate sedation. Pulse oximetry, heart rate and blood pressure were continuously monitored by an independent trained observer. The physician spent 50 minutes of lobu-yq-bajc moderate sedation time with the patient. ADDITIONAL MEDICATIONS: see EMR CONTRAST: none FLUOROSCOPIC TIME: 1.0 minutes CUMULATIVE AIR KERMA/DOSE: 5 mGy. STERILE BARRIER TECHNIQUE: Maximal Sterile Barrier Technique Utilized: Cap AND mask AND sterile gown AND sterile gloves AND sterile full body drape AND hand hygiene AND skin preparation 2% chlorhexidine for cutaneous antisepsis (or acceptable alternative antiseptics). Sterile Ultrasound Technique Utilized ?Sterile gel AND sterile probe covers. UNIVERSAL PROTOCOL: Standard universal protocol per facility guidelines was followed. See EMR for documentation. TECHNIQUE: Risks, benefits and alternatives were explained to the patient in detail. All questions were answered. Written, informed consent was given to proceed with the procedure. The patient was then brought to the angiography suite and placed in the supine position. The neck and chest prepped and draped in the usual sterile fashion. One percent lidocaine was used for local anesthesia. Then, under ultrasound guidance, the internal jugular vein was accessed with a micropuncture system. An 0.035 guidewire which was advanced into the IVC under fluoroscopic guidance. A subcutaneous pocket was then created in the chest wall, inferior to the clavicle. The port was then placed into the pocket. A subcutaneous tunnel was created between the port pocket and the venous access site using blunt dissection. The port catheter was attached to a tunneling device and brought through the tunnel. It was then measured and cut to the appropriate length. The venous access site was serially dilated and a peel away sheath was advanced over the wire and into the SVC under direct fluoroscopic visualization. The catheter was placed through the peel-away sheath into the SVC. The port was accessed, tested and flushed with with 5 cc of 100 units/cc heparinized saline solution. The chest wall incision was closed with absorbable suture and surgical glue. FINDINGS: The right internal jugular vein is anechoic, compressible and patent by ultrasound, and ultrasound images obtained during access show the needle within the vein. Ultrasound images have been permanently captured for documentation. Fluoroscopic images obtained following placement of the port, show that the catheter terminates near the cavoatrial junction. The catheter has a smooth course in the chest wall. The catheter functions well and is available for immediate use. IMPRESSION: Fluoroscopic and ultrasound guided placement of right internal jugular Power Port. UCHE DOUGLAS MD Fortunato Velarde MD IMG IR ORDERABLES * (ABNORMAL) CBC with platelets (04/04/2024 8:00 AM CDT) Only the most recent of8 resultswithin the time period is included. WBC Count 19.4(H) 4.0 - 11.0 10e3/uL 04/04/2024 8:06 AM CDT [facility] RBC Count 2.66(L) 3.80 - 5.20 10e6/uL 04/04/2024 8:06 AM CDT [facility] Hemoglobin 7.9(L) 11.7 - 15.7 g/dL 04/04/2024 8:06 AM CDT [facility] Hematocrit 24.6(L) 35.0 - 47.0 % 04/04/2024 8:06 AM CDT [facility] MCV 93 78 - 100 fL 04/04/2024 8:06 AM CDT [facility] MCH 29.7 26.5 - 33.0 pg 04/04/2024 8:06 AM CDT [facility] MCHC 32.1 31.5 - 36.5 g/dL 04/04/2024 8:06 AM CDT [facility] RDW 18.3(H) 10.0 - 15.0 % 04/04/2024 8:06 AM CDT [facility] Platelet Count 113(L) 150 - 450 10e3/uL 04/04/2024 8:06 AM CDT LABORATORY Blood BLOOD SPECIMEN / Unknown Venipuncture / Unknown 04/04/2024 8:00 AM CDT 04/04/2024 8:03 AM CDT Priti Doss Donnell PHYSICIAN GYNECOLOGIST CIGARETTE CATCHER LAB - BLOOD ORDERABLES LABORATORY [facility] [address] [facility] (1st floor, no room number) [place] [address], [facility] * Uric acid (02/29/2024 8:23 AM CDT) Only the most recent of2 resultswithin the time period is included. Uric Acid 3.5 2.4 - 5.7 mg/dL 02/29/2024 9:16 AM CDT LABORATORY Blood STRUCTURE OF RIGHT UPPER LIMB / Unknown Venipuncture / Unknown 02/29/2024 8:23 AM CDT 02/29/2024 8:32 AM CDT Margarita Ruiz MD LAB - BLOOD ORDER JENNIFER LABORATORY [facility] [address] 1st floor, [address] [place] [address], [place] [phone] * Magnesium (02/29/2024 8:23 AM CDT) Only the most recent of9 resultswithin the time period is included. Magnesium 1.8 1.7 - 2.3 mg/dL 02/29/2024 9:16 AM CDT LABORATORY Blood STRUCTURE OF RIGHT UPPER LIMB / Unknown Venipuncture / Unknown 02/29/2024 8:23 AM CDT 02/29/2024 8:32 AM CDT Margarita Ruiz MD LAB - BLOOD ORDER JENNIFER LABORATORY [facility] [address] 1st floor, [address] [place] [address], [facility] [phone] * (ABNORMAL) Ionized Calcium (02/29/2024 8:23 AM CDT) Only the most recent of4 resultswithin the time period is included. Calcium Ionized Whole Blood 6.8(H) 4.4 - 5.2 mg/dL 02/29/2024 8:36 AM CDT LABORATORY Blood STRUCTURE OF RIGHT UPPER LIMB / Unknown Venipuncture / Unknown 02/29/2024 8:23 AM CDT 02/29/2024 8:32 AM CDT Margarita Ruiz MD LAB - BLOOD ORDER JENNIFER Performing Organization Address City/[facility]/ZIP Co de Phone Number LABORATORY [facility] [address] 1st floor, [place] [address] [address], [facility] [phone] * (ABNORMAL) Basic metabolic panel (02/29/2024 8:23 [...] 70 - 99 mg/dL 02/29/2024 9:17 AM CDT LABORATORY Blood STRUCTURE OF RIGHT UPPER LIMB / Unknown Venipuncture / Unknown 02/29/2024 8:23 AM CDT 02/29/2024 8:32 AM CDT Margarita Ruiz MD LAB - BLOOD ORDER JENNIFER [facility] [address] 1st floor, [address] [place] [phone], [facility] [phone] * Phosphorus (02/27/2024 9:31 AM CDT) Only the most recent of4 resultswithin the time period is included. Phosphorus 3.6 2.5 - 4.5 mg/dL 02/27/2024 7:52 PM CDT LABORATORY Blood STRUCTURE OF RIGHT UPPER LIMB / Unknown Venipuncture / Unknown 02/27/2024 9:31 AM CDT 02/27/2024 9:39 AM CDT Margarita Ruiz MD LAB - BLOOD ORDER JENNIFER [facility] [address] 1st floor, [address] [place] [address], [place] [phone] * XR Abdomen 1 View (02/26/2024 1:48 [...] Whitehead MD LAB - BLOOD ORDERABL ES [facility] [address] 1st floor, [address] [place] [address], [facility] [phone] * Lactate Dehydrogenase (02/26/2024 4:52 AM CDT) Only the most recent of3 resultswithin the time period is included. Lactate Dehydrogenase 207 0 - 250 U/L 02/26/2024 5:17 AM CDT LABORATORY Blood STRUCTURE OF RIGHT HAND / Unknown Venipuncture / Unknown 02/26/2024 4:52 AM CDT 02/26/2024 4:57 AM CDT Margarita Ruiz MD LAB - BLOOD ORDER JENNIFER Performing Organization Address City/[facility]/ZIP Co de Phone Number [facility] [address] 1st floor, [address] [place] [address], [facility] [phone] * Potassium (02/26/2024 4:52 AM CDT) Only the most recent of3 resultswithin the time period is included. Potassium 4.1 3.4 - 5.3 mmol/L 02/26/2024 5:17 AM CDT LABORATORY Blood STRUCTURE OF RIGHT HAND / Unknown Venipuncture / Unknown 02/26/2024 4:52 AM CDT 02/26/2024 4:57 AM CDT Margarita Ruiz MD LAB - BLOOD ORDER JENNIFER [facility] [address] 1st floor, [address] [place] [address], [facility] [phone] * XR Chest 2 Views (02/25/2024 3:17 [...] CDT EXAM: XR CHEST 2 VIEWS LOCATION: [facility] DATE: 02/25/2024 INDICATION: Shortness of breath. Hypercalcemia with fluid, but also got Rasburicase recently. COMPARISON: CT chest, abdomen and pelvis with IV contrast 01/03/2024. Procedure Note Antoientte Bobby MD - 02/25/2024 EXAM: XR CHEST 2 VIEWS LOCATION: [facility] DATE: 02/25/2024 INDICATION: Shortness of breath. Hypercalcemia [...] hardware, partially visualized, unchanged. Gallito Whitehead MD [facility] DIAGNOSTIC IMAGI NG ORDERABLES * (ABNORMAL) Comprehensive metabolic panel (02/23/2024 4:36 AM CDT) [facility] Sodium 137 135 - 145 mmol/L 02/23/2024 [...] - 29 mmol/L 02/23/2024 5:17 AM CDT [facility] Anion Gap 11 7 - 15 mmol/L 02/23/2024 5:[facility] Urea Nitrogen 31.3(H) 8.0 - 23.0 mg/dL 02/23/2024 5:17 AM [facility] Creatinine 1.65(H) 0.51 - 0.95 mg/dL 02/23/2024 5:17 AM [facility] GFR Estimate 30(L) >60 mL/min/1. 73m2 02/23/2024 5:17 AM [facility] Calcium 12.7(H) 8.8 - 10.2 mg/dL 02/23/2024 5:17 AM [facility] Chloride 101 98 - 107 mmol/L 02/23/2024 5:17 AM [facility] Glucose 124(H) 70 - 99 mg/dL 02/23/2024 5:17 AM [facility] Alkaline Phosphatase 83 40 - 150 U/L 02/23/2024 5:17 AM [facility] AST 14 0 - 45 U/L 02/23/2024 5:17 AM [facility] Comment:Reference intervals for this test were updated on 02/27/2023 to more accurately reflect our healthy population. There may be differences in the flagging of prior results with similar values performed with this method. Interpretation of those prior results can be made in the context of the updated reference intervals. ALT 6 0 - 50 U/L 02/23/2024 5:17 AM [facility] Comment:Reference intervals for this test were updated on 02/27/2023 to more accurately reflect our healthy population. There may be differences in the flagging of prior results with similar values performed with this method. Interpretation of those prior results can be made in the context of the updated reference intervals. Protein Total 4.9(L) 6.4 - 8.3 g/dL 02/23/2024 5:17 AM [facility] Albumin 3.0(L) 3.5 - 5.2 g/dL 02/23/2024 5:17 AM [facility] Bilirubin Total 0.2 <=1.2 mg/dL 02/23/2024 5:17 AM [facility] Blood STRUCTURE OF RIGHT UPPER LIMB / Unknown Venipuncture / Unknown 02/23/2024 4:36 AM CDT 02/23/2024 4:53 AM CDT Gallito Whitehead MD LAB - BLOOD ORDERABL ES LABORATORY [facility] [address] 1[address] floor, [address] [place] [address], [facility] [phone] * Lab Result - HIM Scan (02/22/2024 [...] Case Report Surgical Pathology Report ? Case: [id number] ? Authorizing Provider: ??Helen Escalera MD ? Collected: ? 01/22/2024 02:18 PM ? Ordering Location: ? [facility] ?Received: ?01/22/2024 02:54 PM ? [facility] OR ? Pathologist: ? Candelaria Powers, ? MD ? Specimen: ?Omentum, Omentum Biopsy ? 02/07/2024 12:47 PM [facility] Addendum An addendum is issued, on [...] grade 1-2 process. 02/07/2024 12:47 PM [facility] Addendum electronically signed by Candelaria Powers MD on 02/07/2024 at 12:47 PM Final Diagnosis Omentum, biopsy -Follicular lymphoma, classical pattern 02/07/2024 12:47 PM [facility] Comment The unexpected finding of a lymphoid malignancy has been relayed to Dr. Escalera via her nurse Sherly on case sign out. 02/07/2024 12:47 PM [facility] Clinical Information Procedure: DIAGNOSTIC LAPAROSCOPY, OMENTAL BIOPSIES, AND EVACUATION OF ASCITES Pre-op Diagnosis: Intra-abdominal and pelvic swelling, mass and lump, unspecified site [R19.00] Post-op Diagnosis: R19.00 - Intra-abdominal and pelvic swelling, mass and lump, unspecified site [ICD-10-CM] 02/07/2024 12:47 PM [facility] Gross Description A(2). Omentum, Omentum Biopsy: The specimen is received in formalin labeled with the patient's name, medical record number and other identifying information and designated omentum biopsy. It consists of a 5.9 cm aggregate of tlb-ufzc-bymlnk, ragged adipose tissue. Sectioning reveals huff-yellow, lobulated cut surfaces. No definitive tumor is identified. Submitted entirely in 3 cassettes. (Rylee Rooney)01/22/2024 2:59 PM 02/07/2024 12:47 PM [facility] Microscopic Description Evaluation fatty tissue extensively [...] consultation obtained with agreement 02/07/2024 12:47 PM [facility] MCRS Yes(A) N/A 02/07/2024 12:47 PM [facility] Performing Labs The technical component of this testing was completed at [facility] 02/07/2024 12:47 PM CDT LABORATORY Case Images 02/07/2024 12:47 PM CDT LABORATORY Biopsy OMENTUM STRUCTURE / Unknown 01/22/2024 2:18 PM CDT 01/22/2024 2:54 PM CDT Helen PORTER - ALEXANDRA LABORATORY [facility] [address] 1st floor, [address] [place] [address], [facility] [phone] * (ABNORMAL) Cytology, non-gynecologic (01/22/2024 2:09 PM CDT) Final Diagnosis Specimen A: Peritoneal fluid, paracentesis: Interpretation: Atypical. See comment. Other Findings: Abundant population of lymphoid elements. Adequacy: Satisfactory for evaluation. 01/25/2024 2:10 PM CDT LABORATORY Comment The findings should be correlated with the surgical pathology specimen [id number]. 01/25/2024 2:10 PM CDT LABORATORY Clinical Information [...] component of this testing was completed at [facility] 01/25/2024 2:10 PM CDT SPECIALTY LABS [place] ABDOMEN / Unknown 01/22/2024 2:09 PM CDT 01/22/2024 2:53 PM CDT Helen PORTER - ALEXANDRA [facility] Acute [facility] Lab [address] [facility] Lab (1st floor, no room number) [place] [address], [place] [facility] [address] [facility], [address] [place] [address] * ANE AIRWAY ETT PERFORMABLE (01/22/2024 1:18 PM CDT) Narrative Kenzie Jacinto APRN REFRESH TECHNICIAN - 01/22/2024 1:18 PM CDT Kenzie Jacinto APRN REFRESH TECHNICIAN ? 01/22/2024 ??1:31 PM Airway ? Patient location during procedure: OR ? Procedure Start/Stop Times: 01/22/2024 1:18 PM Staff - ? Anesthesiologist: ??Shar See MD ? REFRESH TECHNICIAN: Kenzie Jacinto APRN REFRESH TECHNICIAN ? Performed By: CRNAIndications and Patient Condition [...] Time: 01/22/2024 1:18 PM Rupesh Denton MD [place] ANESTHESIA * Antibody identification (01/22/2024 12:15 PM CDT) Antibody Identification Anti-Wallace b (Fyb) 01/22/2024 1:34 PM CDT BLOOD BANK SPECIMEN EXPIRATION DATE [id number] 01/22/2024 1:34 PM CDT BLOOD BANK Blood STRUCTURE OF RIGHT HAND / Unknown Venipuncture / Unknown 01/22/2024 12:15 PM CDT 01/22/2024 12:21 PM CDT Helen Escalera MD LAB - BLOOD BANK TE [facility] Performing Organization Address City/[facility]/ZIP Co de Phone Number BLOOD BANK [address] [place] [address], [facility] * (ABNORMAL) Adult Type and Screen (01/22/2024 12:15 PM CDT) ABO/RH(D) A POS 01/22/2024 11:54 AM CDT BLOOD BANK Antibody Screen Positive(A) Negative 01/22/2024 11:54 AM CDT BLOOD BANK SPECIMEN EXPIRATION DATE [id number] 01/22/2024 11:54 AM CDT BLOOD BANK Blood STRUCTURE OF RIGHT HAND / Unknown Venipuncture / Unknown 01/22/2024 12:15 PM CDT 01/22/2024 12:21 PM CDT Helen Escalera MD LAB - BLOOD BANK TE [facility] BLOOD BANK [address] [place] [address], [facility] * Red Cell Antigen Typing Non ABO: (01/22/2024 12:15 PM CDT) Fyb Antigen Type Negative 01/22/2024 4:21 PM CDT BLOOD BANK SPECIMEN EXPIRATION DATE [id number] 01/22/2024 4:21 PM CDT BLOOD BANK Blood STRUCTURE OF RIGHT HAND / Unknown Venipuncture / Unknown 01/22/2024 12:15 PM CDT 01/22/2024 12:21 PM CDT Helen Escalera MD LAB - BLOOD BANK TE ST ORDER BLOOD BANK [address] [place] [address], [facility] * (ABNORMAL) Hemoglobin (01/22/2024 12:15 PM CDT) Hemoglobin 10.3(L) 11.7 - 15.7 g/dL 01/22/2024 12:25 PM CDT LABORATORY Blood STRUCTURE OF RIGHT HAND / Unknown Venipuncture / Unknown 01/22/2024 12:15 PM CDT 01/22/2024 12:21 PM CDT Helen Escalera MD LAB - BLOOD ORDERAB LES LABORATORY [facility] [address] floor, [address] [place] [address], [facility] [phone] from Last 3 Months Additional Health Concerns Active Problems Noted Date Diagnosed Date MyC ECC SURG ENROLL 01/17/2024 Advance Directives For more information, please contact: [phone] * No CPR- Do NOT Intubate (Latest Code Status on File) Date Activated Date Inactivated Comments 02/22/2024 11:35 PM 02/29/2024 2:15 PM NO basic or advanced life-sustaining interventions are performed Question Answer Comments Code status determined by: Discussion with patie nt/ legal decision maker Care Teams Client Experience Administrator Relationship Specialty Start Date End Date Zena Yuan MD [address] [place] [address] PCP - General Family Medicine 01/11/24
--- OUTSIDE RECORDS SUMMARY | 2024-04-23 14:12 | XMS_ITS | Referral Summary ---
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 [place] [phone] Juanito Hamm RN 02/22/2024 10:14 PM CDT - 02/29/2024 12:13 PM CDT Hospital Encounter [facility] 88 Oncology [address] [place] [phone] Mathew Chen MD [place], MD Joseph Roberts, Margarita Nath MD Constipation, unspecified constipation type (Primary Dx); Tumor lysis syndrome Discharge Disposition: Home-Health Care Svc 01/22/2024 1:08 PM CDT Anesthesia Event [facility] PeriOP Services [address] [place] [phone] Rupesh Denton MD Dennen, Jazzy Carol Ann, AIRCRAFT ARMAMENT MECHANIC LINUX SERVER ENGINEER 01/22/2024 1:10 PM CDT - 01/22/2024 2:40 PM CDT Surgery [facility] [address] [place] [phone] Helen Escalera MD DIAGNOSTIC LAPAROSCOPY, OMENTAL BIOPSIES, AND EVACUATION OF ASCITES 01/22/2024 11:36 AM CDT - 01/22/2024 4:29 PM CDT Hospital Encounter [facility] PreOP/Phase II [address] [place] [phone] Helen Escalera MD Carcinomatosis (H) (Primary Dx) Discharge Disposition: Home or Self Care from Last 3 Months Allergies Active Allergy [...] Camille Torres Medical Devices Implanted Type Area Director Funeral Device Identifier Shelf Expiration Date Model / Serial / Lot Port-04/04/2024 Implanted:Qty: 1 on 04/04/2024 by Uche Douglas MD Port Right: Chest Wall [id number] 01/15/2027 / / [id number] Procedures Procedure Name Priority Date/Time Associated Diagnosis [...] DOUGLAS MD Narrative 04/04/2024 10:14 AM CDT [facility] EXAM: IMPLANTABLE RIGHT INTERNAL JUGULAR CHEST [...] observer. The physician spent 50 minutes of vnxq-cn-zqaf moderate sedation time with the patient. ADDITIONAL [...] Procedure Note Uche Douglas MD - 04/04/2024 [facility] EXAM: IMPLANTABLE RIGHT INTERNAL JUGULAR CHEST [...] observer. The physician spent 50 minutes of jxzn-yv-mpca moderate sedation time with the patient. ADDITIONAL [...] - 450 10e3/uL 04/04/2024 8:06 AM CDT [facility] LAB[facility] Blood BLOOD SPECIMEN / Unknown Venipuncture / Unknown 04/04/2024 8:00 AM CDT 04/04/2024 8:03 AM CDT Priti Jacobo AIRCRAFT ARMAMENT MECHANIC DOCUMENT CONTROL ASSOCIATE LAB - BLOOD ORDERABLES LABORATORY [facility] Acute Care Lab [address] [facility] Lab (1st floor, no room number) [place] [address] * Uric acid (02/29/2024 8:23 AM CDT) Only the most recent of2 resultswithin the time period is included. Uric Acid 3.5 2.4 - 5.7 mg/dL 02/29/2024 9:16 AM CDT LABORATORY Blood STRUCTURE OF RIGHT UPPER LIMB / Unknown Venipuncture / Unknown 02/29/2024 8:23 AM CDT 02/29/2024 8:32 AM CDT Margarita Ruiz MD LAB - BLOOD ORDER JENNIFER Performing Organization Address City/[facility]/ZIP Co de Phone Number LABORATORY [facility] [address] 1st floor, [address] [place] [address], [facility] [phone] * Magnesium (02/29/2024 8:23 AM CDT) Only the most recent of9 resultswithin the time period is included. Magnesium 1.8 1.7 - 2.3 mg/dL 02/29/2024 9:16 AM CDT LABORATORY Blood STRUCTURE OF RIGHT UPPER LIMB / Unknown Venipuncture / Unknown 02/29/2024 8:23 AM CDT 02/29/2024 8:32 AM CDT Margarita Ruiz MD LAB - BLOOD ORDER JENNIFER Performing Organization Address [facility] Co de Phone Number [facility] Lab [address] 1st floor, [address] [address], [facility] [phone] * (ABNORMAL) Ionized Calcium (02/29/2024 8:23 AM CDT) Only the most recent of4 resultswithin the time period is included. Calcium Ionized Whole Blood 6.8(H) 4.4 - 5.2 mg/dL 02/29/2024 8:36 AM CDT LABORATORY Blood STRUCTURE OF RIGHT UPPER LIMB / Unknown Venipuncture / Unknown 02/29/2024 8:23 AM CDT 02/29/2024 8:32 AM CDT Margarita Ruiz MD LAB - BLOOD ORDER JENNIFER Performing Organization Address City/[facility]/ZIP Co de Phone Number [facility] Lab [address] 1st floor, [address] [place] [address], [facility] [phone] * (ABNORMAL) Basic metabolic panel (02/29/2024 8:23 AM CDT) Only the most recent of7 resultswithin the time period is included. Sodium 137 135 - 145 mmol/L 02/29/2024 9:17 AM [facility] Comment:Reference intervals for this test were updated on 06/13/2023 to more accurately reflect our healthy population. There may be differences in the flagging of prior results with similar values performed with this method. Interpretation of those prior results can be made in the context of the updated reference intervals. Potassium 3.4 3.4 - 5.3 mmol/L 02/29/2024 9:17 AM [facility] Chloride 99 98 - 107 mmol/L 02/29/2024 9:17 AM [facility] Carbon Dioxide (CO2) 27 22 - 29 mmol/L 02/29/2024 9:17 AM [facility] Anion Gap 11 7 - 15 mmol/L 02/29/2024 9:17 AM [facility] Urea Nitrogen 27.6(H) 8.0 - 23.0 mg/dL 02/29/2024 9:17 AM [facility] Creatinine 1.89(H) 0.51 - 0.95 mg/dL 02/29/2024 9:17 AM [facility] GFR Estimate 26(L) >60 mL/min/1. 73m2 02/29/2024 9:17 AM [facility] Calcium 12.8(H) 8.8 - 10.2 mg/dL 02/29/2024 9:17 AM [facility] Glucose 117(H) 70 - 99 mg/dL 02/29/2024 9:17 AM [facility] Blood STRUCTURE OF RIGHT UPPER LIMB / Unknown Venipuncture / Unknown 02/29/2024 8:23 AM CDT 02/29/2024 8:32 AM CDT Margarita Ruiz MD LAB - BLOOD ORDER JENNIFER LABORATORY [facility] Acute Care Lab [address] 1st floor, [address] [place] [address], [place] [phone] * Phosphorus (02/27/2024 9:31 AM CDT) Only the most recent of4 resultswithin the time period is included. Phosphorus 3.6 2.5 - 4.5 mg/dL 02/27/2024 7:52 PM CDT LABORATORY Blood STRUCTURE OF RIGHT UPPER LIMB / Unknown Venipuncture / Unknown 02/27/2024 9:31 AM CDT 02/27/2024 9:39 AM CDT Margarita Ruiz MD LAB - BLOOD ORDER JENNIFER LABORATORY [facility] Acute Care Lab [address] 1st floor, [address] [place] [address], [facility] [phone] * XR Abdomen 1 View (02/26/2024 1:48 [...] MD LAB - BLOOD ORDERABL ES LABORATORY [facility] [address] 1st floor, [address] [address], [facility] [phone] * Lactate Dehydrogenase (02/26/2024 4:52 AM CDT) Only the most recent of3 resultswithin the time period is included. Lactate Dehydrogenase 207 0 - 250 U/L 02/26/2024 5:17 AM CDT LABORATORY Blood STRUCTURE OF RIGHT HAND / Unknown Venipuncture / Unknown 02/26/2024 4:52 AM CDT 02/26/2024 4:57 AM CDT Margarita Ruiz MD LAB - BLOOD ORDER JENNIFER LABORATORY [facility] [address] 1st floor, [address] [place] [address], [place] [phone] * Potassium (02/26/2024 4:52 AM CDT) Only the most recent of3 resultswithin the time period is included. Potassium 4.1 3.4 - 5.3 mmol/L 02/26/2024 5:17 AM CDT LABORATORY Blood STRUCTURE OF RIGHT HAND / Unknown Venipuncture / Unknown 02/26/2024 4:52 AM CDT 02/26/2024 4:57 AM CDT Margarita Ruiz MD LAB - BLOOD ORDER JENNIFER LABORATORY [facility] Acute Care Lab [address] 1st floor, [address] [place] [address], [place] [phone] * XR Chest 2 Views (02/25/2024 3:17 [...] CDT EXAM: XR CHEST 2 VIEWS LOCATION: [facility] DATE: 02/25/2024 INDICATION: Shortness of breath. Hypercalcemia with fluid, but also got Rasburicase recently. COMPARISON: CT chest, abdomen and pelvis with IV contrast 01/03/2024. Procedure Note Antoinette Bobby MD - 02/25/2024 EXAM: XR CHEST 2 VIEWS LOCATION: [facility] DATE: 02/25/2024 INDICATION: Shortness of breath. Hypercalcemia [...] Comprehensive metabolic panel (02/23/2024 4:36 AM CDT) [facility] Sodium 137 135 - 145 mmol/L 02/23/2024 5:17 AM [facility] Comment:Reference intervals for this test were updated on 06/13/2023 to more accurately reflect our healthy population. There may be differences in the flagging of prior results with similar values performed with this method. Interpretation of those prior results can be made in the context of the updated reference intervals. Potassium 3.8 3.4 - 5.3 mmol/L 02/23/2024 5:17 AM [facility] Carbon Dioxide (CO2) 25 22 - 29 mmol/L 02/23/2024 5:17 AM [facility] Anion Gap 11 7 - 15 mmol/L 02/23/2024 5:17 AM [facility] Urea Nitrogen 31.3(H) 8.0 - 23.0 mg/dL 02/23/2024 5:17 AM [facility] Creatinine 1.65(H) 0.51 - 0.95 mg/dL 02/23/2024 5:17 AM [facility] GFR Estimate 30(L) >60 mL/min/1. 73m2 02/23/2024 5:17 AM [facility] Calcium 12.7(H) 8.8 - 10.2 mg/dL 02/23/2024 5:17 AM [facility] Chloride 101 98 - 107 mmol/L 02/23/2024 5:17 AM [facility] Glucose 124(H) 70 - 99 mg/dL 02/23/2024 5:17 AM [facility] Alkaline Phosphatase 83 40 - 150 U/L 02/23/2024 5:17 AM [facility] AST 14 0 - 45 U/L 02/23/2024 5:17 AM [facility] Comment:Reference intervals for this test were updated on 02/27/2023 to more accurately reflect our healthy population. There may be differences in the flagging of prior results with similar values performed with this method. Interpretation of those prior results can be made in the context of the updated reference intervals. ALT 6 0 - 50 U/L 02/23/2024 5:17 AM [facility] Comment:Reference intervals for this test [...] MD LAB - BLOOD ORDERABL ES LABORATORY [facility] [address] 1st floor, [address] [place] [address], [facility] [phone] * Lab Result - HIM Scan (02/22/2024 [...] Case Report Surgical Pathology Report ? Case: [id number] ? Authorizing Provider: ??Helen Escalera, ? Collected: ? 01/22/2024 02:18 PM ? Ordering Location: ? [facility] ?Received: ?01/22/2024 02:54 PM ? [place] [facility] [...] a grade 1-2 process. 02/07/2024 12:47 PM [facility] Addendum electronically signed by Candelaria Powers MD on 02/07/2024 at 12:47 PM Final Diagnosis Omentum, biopsy -Follicular lymphoma, classical pattern 02/07/2024 12:47 PM [facility] Comment The unexpected finding of a lymphoid malignancy has been relayed to Dr. Escalera via her nurse Sherly on case sign out. 02/07/2024 12:47 PM [facility] Clinical Information Procedure: DIAGNOSTIC LAPAROSCOPY, OMENTAL BIOPSIES, AND EVACUATION OF ASCITES Pre-op Diagnosis: Intra-abdominal and pelvic swelling, mass and lump, unspecified site [R19.00] Post-op Diagnosis: R19.00 - Intra-abdominal and pelvic swelling, mass and lump, unspecified site [ICD-10-CM] 02/07/2024 12:47 PM [facility] Gross Description A(2). Omentum, Omentum Biopsy: The specimen is received in formalin labeled with the patient's name, medical record number and other identifying information and designated omentum biopsy. It consists of a 5.9 cm aggregate of ykw-hkwq-gysrio, ragged adipose tissue. Sectioning reveals huff-yellow, lobulated cut surfaces. No definitive tumor is identified. Submitted entirely in 3 cassettes. (Rylee Rooney)01/22/2024 2:59 PM 02/07/2024 12:47 PM [facility] Microscopic Description Evaluation fatty tissue [...] component of this testing was completed at [facility] 02/07/2024 12:47 PM CDT LABORATORY Case Images 02/07/2024 12:47 PM CDT LABORATORY Biopsy OMENTUM STRUCTURE / Unknown 01/22/2024 2:18 PM CDT 01/22/2024 2:54 PM CDT Helen Escalera MD LAB - [facility] LABORATORY [facility] Acute Care Lab [address] 1st floor, [address] [place] [address], [facility] [phone] * (ABNORMAL) Cytology, non-gynecologic (01/22/2024 2:09 PM CDT) Final Diagnosis Specimen A: Peritoneal fluid, paracentesis: Interpretation: Atypical. See comment. Other Findings: Abundant population of lymphoid elements. Adequacy: Satisfactory for evaluation. 01/25/2024 2:10 PM CDT LABORATORY Comment The findings should be correlated with the surgical pathology specimen [id number]. 01/25/2024 2:10 PM CDT LABORATORY Clinical Information [...] component of this testing was completed at [facility] 01/25/2024 2:10 PM CDT SPECIALTY LABS [place] ABDOMEN / Unknown 01/22/2024 2:09 PM CDT 01/22/2024 2:53 PM CDT Helen PORTER - ALEXANDRA SMITH LABORATORY [facility] Acute Care Lab [address] Lab (1st floor, no room number) [place] [address], [facility] SPECIALTY LABS Specialty Lab [address] [facility], [address] [place] [address] * ANE AIRWAY ETT PERFORMABLE (01/22/2024 1:18 PM CDT) Narrative Kenzie Jacinto APRN LINUX SERVER ENGINEER - 01/22/2024 1:18 PM CDT Kenzie Jacinto APRN LINUX SERVER ENGINEER ? 01/22/2024 ??1:31 PM Airway ? Patient location during procedure: OR ? Procedure Start/Stop Times: 01/22/2024 1:18 PM Staff - ? Anesthesiologist: ??Shar See MD ? LINUX SERVER ENGINEER: Kenzie Jacinto APRN LINUX SERVER ENGINEER ? Performed By: CRNAIndications and Patient Condition [...] Time: 01/22/2024 1:18 PM Rupesh Denton MD [place] ANESTHESIA * Antibody identification (01/22/2024 12:15 PM CDT) [facility] Antibody Identification Anti-Wallace b (Fyb) 01/22/2024 1:34 PM CDT BLOOD BANK SPECIMEN EXPIRATION DATE [id number] 01/22/2024 1:34 PM CDT BLOOD BANK Blood STRUCTURE OF RIGHT HAND / Unknown Venipuncture / Unknown 01/22/2024 12:15 PM CDT 01/22/2024 12:21 PM CDT Helen Escalera MD LAB - BLOOD BANK [facility] Organization Address City/State/ZIP Co de Phone Number BLOOD BANK [address] [place] [address], [facility] * (ABNORMAL) Adult Type and Screen (01/22/2024 12:15 PM CDT) Pathologist [facility] ABO/RH(D) A POS 01/22/2024 11:54 AM CDT BLOOD BANK Antibody Screen Positive(A) Negative 01/22/2024 11:54 AM CDT BLOOD BANK SPECIMEN EXPIRATION DATE [id number] 01/22/2024 11:54 AM CDT BLOOD BANK Blood STRUCTURE OF RIGHT HAND / Unknown Venipuncture / Unknown 01/22/2024 12:15 PM CDT 01/22/2024 12:21 PM CDT Helen Escalera MD LAB - BLOOD BANK TE ORDER BLOOD BANK [address] [place] [phone], [facility] * Red Cell Antigen Typing Non ABO: (01/22/2024 12:15 PM CDT) Fyb Antigen Type Negative 01/22/2024 4:21 PM CDT BLOOD BANK SPECIMEN EXPIRATION DATE [id number] 01/22/2024 4:21 PM CDT BLOOD BANK Blood STRUCTURE OF RIGHT HAND / Unknown Venipuncture / Unknown 01/22/2024 12:15 PM CDT 01/22/2024 12:21 PM CDT Helen Escalera MD LAB - BLOOD BANK TE ORDER Performing Organization Address City/[facility]/ZIP Co de Phone Number BLOOD BANK [address] [place] [address], [facility] * (ABNORMAL) Hemoglobin (01/22/2024 12:15 PM CDT) Hemoglobin 10.3(L) 11.7 - 15.7 g/dL 01/22/2024 12:25 PM CDT LABORATORY Blood STRUCTURE OF RIGHT HAND / Unknown Venipuncture / Unknown 01/22/2024 12:15 PM CDT 01/22/2024 12:21 PM CDT Helen Escalera MD LAB - BLOOD ORDERAB LES LABORATORY [facility] Acute Care Lab [address] 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
--- OUTSIDE RECORDS SUMMARY | 2024-04-23 14:12 | XMS_ITS | Encounter Summary ---
Author Organization [facility] Address [address] [place] [id number] Care Team Providers Care Backhaul Driver Name Role Phone Alisha Yuan MD Primary Care Provider [phone] Reason for Referral * Home Health Therapies & Aides (Routine: Next available opening) - Pending Review Specialty Diagnoses / Procedures Referred By Wyatt t Referred To Contact Diagnoses Tumor lysis syndrome Margarita Ruiz MD [address] [place] [address] Referral ID Status Reason Start Date Expiration Date V isits Requested Visits Authorized [id number] Pending Review 02/29/2024 02/28/2025 1 1 Question [...] 02/29/2024 Provider to follow patient ALISHA YUAN [[id number]] Comments Your provider has ordered home health services. If you have not been contacted within 2 days of your discharge please call the selected Home Care agency listed on your Discharge document. If a Home Care agency is NOT listed, please call [phone]. Reason for Visit * Auth/Cert Specialty Diagnoses / Procedures Referred By Wyatt boucher Referred To Contact EMERGENCY MEDICINE Diagnoses Tumor lysis syndrome [facility] Emergency Dept [address] [place] [address] Referral ID Status Reason Start Date Expiration Date Visits Re quested Visits Authorized [id number] 1 1 Encounter Details Date Type Department Care Team (Latest Contact Info) Description 02/22/2024 10:14 PM CDT - 02/29/2024 12:13 PM CDT Hospital Encounter [place] [address] Oncology [address] [place] [id number] Mathew Chen MD [address] [place] [id number] Gallito Whitehead MD [address] [place] [id number] Margarita Ruiz MD [address] [place], [place] [address] Constipation, unspecified constipation type (Primary Dx); Tumor [...] Ruiz MD - 02/29/2024 9:54 AM CDT [facility] Hospitalist Discharge Summary Date of Admission: [...] 02/22/2024. She presents as a transfer from [facility] in the setting of tumor lysis [...] low, consider adjusting allopurinol order. Allopurinol discontinued. [place] oncology consult requested Treated with IV fluids, [...] 2.1 this past week through outside records. [place] potentially secondary to both tumor lysis, dehydration, [...] minutes discharging this patient. Margarita Ruiz MD [place] [address] [place] [address], [address] [facility] [id number] Physical Exam Vital Signs: Temp: 97.5 ??F [...] Narrative EXAM: XR CHEST 2 VIEWS LOCATION: [facility] DATE: 02/25/2024 INDICATION: Shortness of breath. [...] Discharge Note Discharge Date: 02/29/2024 Discharge Disposition: [facility] Discharge Services: None Discharge DME: Walker Discharge [...] Information: Patient will be discharging today to [facility]. Apartment Leasing Agent faxed orders to Juliana RN at [phone]. Apartment Leasing Agent called Juliana on both her cell phone ([phone]) and her desk phone ([phone]) and left a message asking for a call back regarding discharge for today. Apartment Leasing Agent touched base with patients son James who states he is here and able to transport today. James states he has been in touch with Juliana as well about discharge for today. Apartment Leasing Agent updated bedside RN about discharge. Apartment Leasing Agent updated NST that we would need a packet for discharge. BRITTANY Telles * Grant Miranda MD - 02/29/2024 8:45 AM CDT [place] [facility] Progress Note Primary Oncologist: Shereen Belle Assessment and Plan: Follicular lymphoma - Stage IV, grade 1-2 - Symptoms: Weight loss, night sweats, early satiety - Started Bendamustine Rituximab 02/19/24, did not receive Bendamustine day 2 due to severe hypercalcemia which prompted hospital admission - Uric acid elevated at outside hospital, transferred to [facility] and received 6mg Rasbirucase - She received [...] Ruiz MD - 02/28/2024 4:24 PM CDT [facility] Medicine Progress Note - Hospitalist Service Date of Admission: 02/22/2024 Assessment & Plan Dipika Franco is a 83 year old female admitted on 02/22/2024. She presents as a transfer from [facility] in the setting of tumor lysis [...] low, consider adjusting allopurinol order. Allopurinol discontinued. [place] oncology consult requested 1L NS bolus and [...] 2.1 this past week through outside records. [place] potentially secondary to both tumor lysis, dehydration, [...] pending labs Margarita Ruiz MD Hospitalist Service [facility] Securely message with [employer] (more info) Text page via [facility] Paging/Directory Interval History I am feeling stronger. [...] Miranda MD - 02/28/2024 2:44 PM CDT [place] Oncology/Hematology Progress Note Primary Oncologist: Dr. Velarde Touchet Assessment and Plan: Follicular lymphoma - Stage IV, grade 1-2 - Symptoms: Weight loss, night sweats, early satiety - Started Bendamustine Rituximab 02/19/24, did not receive Bendamustine day 2 due to severe hypercalcemia which prompted hospital admission - Uric acid elevated at outside hospital, transferred to [facility] and received 6mg Rasbirucase - She received [...] Ruiz MD - 02/27/2024 4:36 PM CDT [facility] Medicine Progress Note - Hospitalist Service Date of Admission: 02/22/2024 Assessment & Plan Dipika Franco is a 83 year old female admitted on 02/22/2024. She presents as a transfer from [facility] in the setting of tumor lysis [...] low, consider adjusting allopurinol order. Allopurinol discontinued. [place] oncology consult requested 1L NS bolus and [...] 2.1 this past week through outside records. [place] potentially secondary to both tumor lysis, dehydration, [...] discharge tomorrow Margarita Ruiz MD Hospitalist Service [facility] Securely message with [employer] (more info) Text page via [email or web address] Paging/Directory Interval History I have had this [...] Finley MD - 02/27/2024 3:21 PM CDT [place] [facility] Progress Note Primary Oncologist: Dr. Velarde Touchet Assessment and Plan: Follicular lymphoma - Stage IV, grade 1-2 - Symptoms: Weight loss, night sweats, early satiety - Started Bendamustine Rituximab 02/19/24, did not receive Bendamustine day 2 due to severe hypercalcemia which prompted hospital admission - Uric acid elevated at outside hospital, transferred to [facility] and received 6mg Rasbirucase - She received [...] Weight 61.1 kg (adjusted) Estimated Energy Needs: 3264-6939 kcals (25-30 Kcal/Kg) Justification: maintenance Estimated Protein Needs: 73-92 grams protein (1.2-1.5 g pro/Kg) Justification: preservation of lean body mass Estimated Fluid Needs: 1756-1947 mL (1 mL/Kcal) NEW FINDINGS: General/Plan: pt [...] Discharge Note Discharge Date: 02/27/2024 Discharge Disposition: [facility] Discharge Services: None Discharge DME: [...] Information: Patient will be discharging today to [facility]. Apartment Leasing Agent spoke with CHRISTEN Andrews at the facility and orders will need to be faxed to [phone]. Patient will need to have Home PT/OT Orders so therapy can assess in the enhanced unit. They use [facility] in [place] for any medications that need to be filled for patient. Apartment Leasing Agent paged MD for orders as son is here and would be able to transport when available. Family in agreement with the plan for discharge. Addendum 1050: Apartment Leasing Agent talked with and they are not able to discharge today due to Calcium Levels going up. will round later today to update patient. Apartment Leasing Agent updated Bedside RN. Angelita Urias. BRITTANY Gr * Wu Spencer DO - 02/26/2024 3:32 PM CDT [place] Oncology/Hematology Progress Note Assessment and Plan: Primary Oncologist: Shereen Belle Follicular lymphoma - Stage IV, grade 1-2 - Symptoms: Weight loss, night sweats, early satiety - Started Bendamustine Rituximab 02/19/24, did not receive Bendamustine day 2 due to severe hypercalcemia which prompted hospital admission - Uric acid elevated at outside hospital, transferred to [facility] and received 6mg Rasbirucase - She received [...] to follow her with you Wu Spencer, [place] [facility] [phone] (office) Interval History: Has less fatigue than [...] obstruction or free intraperitoneal air. * Angelita Gr, BRITTANY - 02/26/2024 11:43 AM CDT Care Management [...] pay costs discussed: Not applicable Additional Information: Apartment Leasing Agent received information that the family would like [facility] and [facility] suites looked into for placement. Apartment Leasing Agent researched this and this is [facility], chart writer called and left a message with admissions to see if they would have any option to do a short termstay for TCU in their enhanced care unit area. Waiting on a call back. Addendum 1400: Apartment Leasing Agent received a call back from Ly at [facility]. Ly states that they do not have a TCU that is under Medicare. They have an enhanced care which people can enter for a short term stay, that is private pay and daily rate is $350-$450 a day. Addendum 1500: Apartment Leasing Agent spoke with patients son James. James states that they are needing a short term place where patient can still receive chemotherapy. James states that money is not an issue and they would like to get her placed at [facility]. James states he has been in touch with Zaynab over there and is ready whenever they can get patient in. Apartment Leasing Agent called and spoke with Zaynab( [phone]) that they would need a housing application filled out and an RN to RN phone visit done to make sure they can meet her needs. Zaynab will be in touch with James on doing the application for housing and then get back to on next steps. BRITTANY Telles * Margarita Ruiz MD - 02/26/2024 10:19 AM CDT [facility] Medicine Progress Note - Hospitalist Service Date of Admission: 02/22/2024 Assessment & Plan Dipika Franco is a 83 year old female admitted on 02/22/2024. She presents as a transfer from [facility] in the setting of tumor lysis [...] phosphorus, BMP, ionized calcium, LDH Cardiac telemetry [place] oncology consulted, aware of patient from outside [...] 2.1 this past week through outside records. [place] potentially secondary to both tumor lysis, dehydration, [...] 2-4 Days Margarita Ruiz MD Hospitalist Service [facility] Securely message with [employer] (more info) Text page via [facility] Paging/Directory Interval History I am starting to [...] Miranda MD - 02/25/2024 10:12 AM CDT [place] Oncology/Hematology Progress Note Assessment and Plan: Primary Oncologist: Dr. Velarde Touchet Follicular lymphoma - Stage IV, grade 1-2 - Symptoms: Weight loss, night sweats, early satiety - Started Bendamustine Rituximab 02/19/24, did not receive Bendamustine day 2 due to severe hypercalcemia which prompted hospital admission - Uric acid elevated at outside hospital, transferred to [facility] and received 6mg Rasbirucase - She received [...] She may wish to go to a correction instead of home - Continue allopurinol - renal function improving. Uric acid has normalized. Calcium level 12.6mg/dl 02/24/2024. Will continue to follow her with you Grant Miranda MD [place] [facility] [phone] (office) Interval History: Has had some worsening [...] Narrative EXAM: XR CHEST 2 VIEWS LOCATION: [facility] DATE: 02/25/2024 INDICATION: Shortness of breath. [...] Ruiz MD - 02/25/2024 9:47 AM CDT [facility] Medicine Progress Note - Hospitalist Service Date of Admission: 02/22/2024 Assessment & Plan Dipika Franco is a 83 year old female admitted on 02/22/2024. She presents as a transfer from [facility] in the setting of tumor lysis [...] phosphorus, BMP, ionized calcium, LDH Cardiac telemetry [place] oncology consulted, aware of patient from outside [...] 2.1 this past week through outside records. [place] potentially secondary to both tumor lysis, dehydration, [...] 2-4 Days Margarita Ruiz MD Hospitalist Service [facility] Securely message with [employer] (more info) Text page via [email or web address] Paging/Directory Interval History I am worn out. [...] Narrative EXAM: XR CHEST 2 VIEWS LOCATION: [facility] DATE: 02/25/2024 INDICATION: Shortness of breath. [...] Miranda MD - 02/24/2024 11:25 AM CDT [place] Oncology/Hematology Progress Note Assessment and Plan: Primary Oncologist: Dr. Velarde Touchet Follicular lymphoma - Stage IV, grade 1-2 - Symptoms: Weight loss, night sweats, early satiety - Started Bendamustine Rituximab 02/19/24, did not receive Bendamustine day 2 due to severe hypercalcemia which prompted hospital admission - Uric acid elevated at outside hospital, transferred to [facility] and received 6mg Rasbirucase - She received [...] She may wish to go to a correction instead of home - Continue allopurinol - renal function improving. Uric acid has normalized. Calcium level 12.6mg/dl today. Continue IVF. Will continue to follow her with you Grant Miranda MD [place] [facility] [phone] (office) Interval History: Denied new complaints. Reported [...] Ruiz MD - 02/24/2024 9:02 AM CDT [facility] Medicine Progress Note - Hospitalist Service Date of Admission: 02/22/2024 Assessment & Plan Dipika Franco is a 83 year old female admitted on 02/22/2024. She presents as a transfer from [facility] in the setting of tumor lysis [...] phosphorus, BMP, ionized calcium, LDH Cardiac telemetry [place] oncology consulted, aware of patient from outside [...] hospice agency available in her hometown of [place]. She is interested and would benefit from [...] 2.1 this past week through outside records. [place] potentially secondary to both tumor lysis, dehydration, [...] 2-4 Days Margarita Ruiz MD Hospitalist Service [facility] Securely message with [employer] (more info) Text page via [email or web address] Paging/Directory Interval History I am constipated. I [...] alone Current Living Arrangements other (see comments) (townhouse) Home Accessibility stairs to enter home Number [...] 02/22/2024. She presents as a transfer from [facility] in the setting of tumor lysis [...] Evaluation Time PT Eval, Low Complexity Minutes (89337) 10 Physical Therapy Goals PT Frequency 5x/week [...] dynamic activities to improve functional performance Minutes (11310) 12 Treatment Detail/Skilled Intervention Pt needing to [...] of timed and untimed services) 22 * Margarita Ruiz MD - 02/23/2024 10:08 AM CDT [facility] Medicine Progress Note - Hospitalist Service Date of Admission: 02/22/2024 Assessment & Plan Dipika Franco is a 83 year old female admitted on 02/22/2024. She presents as a transfer from [facility] in the setting of tumor lysis [...] uric acid as well as creatinine trend. [place] oncology consulted, aware of patient from outside [...] hospice agency available in her hometown of [place]. She is interested and would benefit from [...] 2.1 this past week through outside records. [place] potentially secondary to both tumor lysis, dehydration, [...] 2-4 Days Margarita Ruiz MD Hospitalist Service [facility] Securely message with [employer] (more info) Text page via [facility] Paging/Directory Interval History I got to sleep about 5 AM. Patient says she is exhausted, she was up almost all night long. She says she talked with her son, she does not want to continue chemotherapy. Son asks about timing for discharge, they live in [place] and, if she needs TCU at discharge, she would like to go to [facility]. She has no new respiratory or [...] loss and poor appetite. Son came in senior care through. - Dipika explained here 3 years ago, she stopped cooking as much, and started losing wt, which she was happy with. She came back from [place] this past December, had a very poor [...] Weight 61.1 kg (adjusted) Estimated Energy Needs: 6175-2284 kcals (25-30 Kcal/Kg) Justification: maintenance Estimated Protein Needs: 73-92 grams protein (1.2-1.5 g pro/Kg) Justification: preservation of lean body mass Estimated Fluid Needs: 6035-9106 mL (1 mL/Kcal) Justification: maintenance MALNUTRITION: % [...] told to go to the hospital in [place]. She was then transferred to [facility] on Room air except HTN. According to the nurse who gave report there was some concern with Tumor Lysis Syndrome and an VEE. Patient is waiting for Dr. Whitehead to see her. No orders have been put in yet. documented in this encounter H&P Notes * Gallito Whitehead MD - 02/22/2024 10:48 PM CDT [facility] History and Physical - Hospitalist Service Date of Admission: 02/22/2024 Assessment & Plan Dipika Franco is a 83 year old female admitted on 02/22/2024. She presents as a transfer from [facility] in the setting of tumor lysis [...] uric acid as well as creatinine trend. -[place] oncology consulted, aware of patient from outside [...] hospice agency available in her hometown of [place]. She is interested and would benefit from an informationalmeeting on hospice, preferably with family present. She recognizes that she will transition to hospice at some point in the near future, but no plan to immediately enroll. Her daughter, who is her primary healthcare advocate, is on a vacation to [place] for the next 8 days. Her son, who also lives in [place] and is assisting her while daughter is away will be leaving on vacation the day after her daughter returns. As such, this informational meeting could hopefully be arranged for 2 weeks from now; both local children will be around for 1 week before daughter going on another vacation to [place]. -Encouraged patient to let providers know if [...] 2.1 this past week through outside records. [place] potentially secondary to both tumor lysis, dehydration, [...] hyperuricemia, hypercalcemia Gallito Whitehead MD Hospitalist Service [facility] Securely message with [employer] (more info) Text page via [facility] Paging/Directory Chief Complaint Weakness History is obtained from the patient, chart review, brief discussion with transferring accepting provider, Dr. Chen, review of outside records sent with patient from [facility] History of Present Illness Dipika Franco is a 83 year old female who presents as a direct admission from [facility] in the setting of mantle cell lymphoma with bulky adenopathy and recent chemotherapy now with tumor lysis syndrome. Essentially, she received her first cycle of chemotherapy with Rituxan and Bendeka 02/18 and 02/20/2024. Received Neulasta 02/20/2024. She had labs drawn with her Neulasta and second Bendeka dose, and was on her way home to [place] from [facility] where she received her chemo when she received a call advising her to go to the hospital for treatment of lab abnormalities she has some acute kidney injury with creatinine of 1.8 and 2.1 around time of admission to outsidehospital. Elevated LDH, elevated uric acid. There was concern for tumor lysis syndrome. She was hospitalized at [facility] where [place] oncology was providing telephone consultation. She received zoledronic acid and was initiated on allopurinol for hypercalcemia and hyperuricemia. Oncology recommended rasburicase in the setting of her renal insufficiency and hyperuricemia, but this was not available at [place]. This led to transfer to [facility] when bed became available. Patient reports no [...] when transport arrived to transfer her from [facility] to [facility]. She was also disappointed as she was [...] APPENDECTOMY CHOLECYSTECTOMY CYSTOCELE REPAIR HYSTERECTOMY LAPAROSCOPY DIAGNOSTIC (PAINT STOCK CLERK) N/A 01/22/2024 Procedure: DIAGNOSTIC LAPAROSCOPY, OMENTAL BIOPSIES, [...] the note. Data Laboratory studies reviewed from [facility]. Sodium 134, potassium 3.6, chloride 104, [...] Communication Assessment Patient's communication style: spoken language (Armenian or Bilingual) Hearing Difficulty or Deaf: no [...] Insecurity: No Food Insecurity (01/01/2024) [facility] Food Insecurity Worried About Running Out of Food in the Last Year: 1 Depression: At risk (04/05/2023) [facility] PHQ-2 TOTAL SCORE: 3 Housing Stability: Low Risk (01/01/2024) [facility] Housing Stability Unable to Pay for Housing in the Last Year: 1 Tobacco Use: Low Risk (01/22/2024) Patient History Smoking Tobacco Use: Never Smokeless Tobacco Use: Never Passive Exposure: Not on file Financial Resource Strain: Low Risk (01/01/2024) [facility] Financial Resource Strain Difficulty of Paying Living Expenses: 3 Difficulty of Paying Living Expenses: Not on file Alcohol Use: Not on file Transportation Needs: No Transportation Needs (01/01/2024) [facility] Transportation Needs Lack of Transportation (Medical): 1 Physical Activity: Not on file Interpersonal Safety: Not on file Stress: Not on file Social Connections: Socially Isolated (01/01/2024) [facility] Social Connections Frequency of Communication with Friends and Family: 4 Health Literacy: Not on file Functional Status: Prior to admission patient needed assistance: Mental Health Status: Chemical Dependency Status: Values/Beliefs: Spiritual, Cultural Beliefs, Moravian Practices, Values that affect care: Additional Information: Apartment Leasing Agent received consult for discharge planning. Per H&P, patient is a 83 year old female admitted on 02/22/2024. She presents as a transfer from [facility] in the setting of tumor lysis syndrome after her first cycle of chemotherapy for mantle cell lymphoma. Apartment Leasing Agent met with patient and introduced self and role. Patient states that she lives in a town home with her dog. Patient states she uses a walker at baseline and gets around pretty well. Both her sonand daughter live in [place] and are able to come over sometimes but not all the time to help. Patient is hoping to find someone to come live with her to help her through chemotherapy but has been unsuccessful. Patient would like to go to [facility]. Apartment Leasing Agent let her know that, that specific facility no longer has a TCU but we could look at [facility] in [place]. Patient states she does not want to go there. Patient states she would be open to [facility] but if she cannot get in there she is not going to TCU and would like to go home with Home Care. Apartment Leasing Agent let her know that we would send referrals for both [facility] and Home Care to have a back up option. Apartment Leasing Agent did discuss the need for chemotherapy having to be held in the TCU. Patient was okay with this and chart writer encouraged her to speak with her oncologist about this further. Patient states she was going to talk with her family about options as well. SW will continue to follow. Referrals sent. BRITTANY Telles * Wu Spencer, DO - 02/23/2024 5:24 PM CDTAssociated Order(s): HEMATOLOGY & ONCOLOGY IP CONSULT Images from the original note were not included. Consultation Dipika Farnco Date of : 1940 Age: [age] year old Date of Admission: 02/22/2024 Requesting physician: Dr. Whitehead Reason for consult: TLS, lymphoma Assessment and Plan: Primary Oncologist: Dr. Velarde, [place] Follicular lymphoma - Stage IV, grade 1-2 - Symptoms: Weight loss, night sweats, early satiety - Started Bendamustine Rituximab 02/19/24, did not receive Bendamustine day 2 due to severe hypercalcemia which prompted hospital admission - Uric acid elevated at outside hospital, transferred to [facility] and received 6mg Rasbirucase - She received [...] She may wish to go to a correction instead of home - Continue allopurinol Wu Spencer DO [facility] [phone] (office) Chief Complaint: No chief complaint on [...] levated uric acid. She was transferred to [facility] because the other hospital did not [...] further evaluation and management. 01/03/2024: Presented to [facility] for unintentional weight loss, fatigue, etc. CT chest/abdomen/pelvis w/ IV contrast noted diffuse adenopathy (likely metastatic), omental carcinomatosis, peritoneal nodularity with thickening and mild enhancement, mild to moderate pelvic ascltes. 01/10/2024: Tumor markers with Ca-125 = 1068 (elevated), CEA = 0.9 (normal) & Ca 19-9 = 8 (normal). 01/15/2024: IR biopsy requested. Patient presented to [facility] & did not feel there [...] APPENDECTOMY CHOLECYSTECTOMY CYSTOCELE REPAIR HYSTERECTOMY LAPAROSCOPY DIAGNOSTIC (PAINT STOCK CLERK) N/A 01/22/2024 Procedure: DIAGNOSTIC LAPAROSCOPY, OMENTAL BIOPSIES, [...] injection 40 mg 40 mg Subcutaneous Q24H Ventura, Gallito Goodman MD 40mg at 02/23/24 0946 lidocaine (LMX4) cream Topical Q1H PRN Ventura, Gallito Goodman MD lidocaine 1 % 0.1-1 mL 0.1-1 mL Other Q1H PRN Ventura, Gallito Goodman MD melatonin tablet 1 mg 1 mg Oral At Bedtime PRN Ventura, Gallito Goodman MD naloxone (NARCAN) injection 0.2 mg 0.2 mg Intravenous Q2 Min PRN Lillevold, Mathew Juanito, MD Or naloxone (NARCAN) injection 0.4 mg [...] Summary Reason for therapy discharge: Discharged to [facility] Progress towards therapy goal(s). See goals on Care Plan in Epic electronic health record for goal details. Goals partially met. Barriers to achieving goals: discharge from facility. Therapy recommendation(s): Continued therapy is recommended. Rationale/Recommendations: To further improve mobility and independence. * Plan of Care - Maureen Crowell RN - 02/29/2024 8:09 AM CDT 1899 Orientation: A&Ox4 Activity: A1 w/GB+W Diet/BS Checks: [...] PT, SW D/C Disposition: pending lab results, [facility] has accepted patient when medically stable, hopefully today Other Info: - K and mag protocols * Plan of Care - Marcy Emanuel RN - 02/27/2024 6:33 PM CDT [id number] Pt continues to struggle with oral intake. [...] Emanuel RN - 02/26/2024 5:22 PM CDT 2751-7092 Pt overall doing well. Up with SBA/GB/walker. [...] 5:08 AM CDT Goal Outcome Evaluation: 02/25/24 [phone] Orientation: A/Ox4 Activity: A1GBW Diet/BS Checks: Reg [...] Notified Person: MD Notified Person Name: Dr. Ruiz Notification Date/Time: 02/23/241850 Notification Interaction: Vocera page Purpose of Notification: Are you wanting me to do another mag infusion? I did one this afternoon and am awaiting the recheck level Orders Received: No need to repeat right now Comments: Passed onto steward/stewardess night to watch for the recheck level * [...] 02/23/2024 6:59 AM CDT Goal Outcome Evaluation: [id number] Orientation: A&O x4 Activity: A1 GBW Diet/BS [...] * Pharmacy-Admission Medication History - Dustin Fried RP - 02/22/2024 10:48 PM CDT Pharmacist Admission [...] from OSH not available. Changes made to SOFTWARE QUALITY ASSURANCE ENGINEER medication list: Added: None Deleted: None Changed: None Allergies reviewed with patient and updates made in EHR: no Medication History Completed By: Dustin Fried RPH 02/22/2024 10:48 PM SOFTWARE QUALITY ASSURANCE ENGINEER Med List Medication Sig Last Dose Acetaminophen [...] (ABNORMAL) Ionized Calcium (02/29/2024 8:23 AM CDT) [facility] Calcium Ionized Whole Blood 6.8(H) 4.4 - 5.2 mg/dL 02/29/2024 8:36 AM CDT LABORATORY Blood STRUCTURE OF RIGHT UPPER LIMB / Unknown Venipuncture / Unknown 02/29/2024 8:23 AM CDT 02/29/2024 8:32 AM CDT Margarita Ruiz MD LAB - BLOOD ORDER JENNIFER LABORATORY [facility] Lab [address], [address] [place] [address], [place] [phone] * Uric acid (02/29/2024 8:23 AM CDT) Uric Acid 3.5 2.4 - 5.7 mg/dL 02/29/2024 9:16 AM CDT LABORATORY Blood STRUCTURE OF RIGHT UPPER LIMB / Unknown Venipuncture / Unknown 02/29/2024 8:23 AM CDT 02/29/2024 8:32 AM CDT Margarita Ruiz MD LAB - BLOOD ORDER JENNIFER LABORATORY [facility] Lab [address], [address] [place] [address], [facility] [phone] * (ABNORMAL) CBC with platelets (02/29/2024 8:23 AM CDT) Pathologist [facility] WBC Count 15.1(H) 4.0 - 11.0 10e3/uL [...] MD LAB - BLOOD ORDER JENNIFER LABORATORY [facility] Lab [address], [address] [place] [address], [facility] [phone] * (ABNORMAL) Basic metabolic panel (02/29/2024 8:23 AM CDT) [facility] Signature Sodium 137 135 - 145 mmol/L 02/29/2024 [...] MD LAB - BLOOD ORDER JENNIFER LABORATORY [facility] [address], [address] [place] [address], [facility] [phone] * Magnesium (02/29/2024 8:23 AM CDT) Magnesium 1.8 1.7 - 2.3 mg/dL 02/29/2024 9:16 AM CDT LABORATORY Blood STRUCTURE OF RIGHT UPPER LIMB / Unknown Venipuncture / Unknown 02/29/2024 8:23 AM CDT 02/29/2024 8:32 AM CDT Margarita Ruiz MD LAB - BLOOD ORDER JENNIFER Performing Organization Address City/[facility]/ZIP Co de Phone Number LABORATORY [facility] [address], [address] [address], [facility] [phone] * (ABNORMAL) CBC with platelets (02/28/2024 8:03 [...] - 450 10e3/uL 02/28/2024 8:35 AM [facility] LABORATORY Blood STRUCTURE OF RIGHT UPPER LIMB / Unknown Venipuncture / Unknown 02/28/2024 8:03 AM CDT 02/28/2024 8:13 AM CDT Margarita Ruiz MD LAB - BLOOD ORDER JENNIFER LABORATORY [facility] Lab [address], [address] [place] [address], [facility] [phone] * (ABNORMAL) Basic metabolic panel (02/28/2024 8:03 AM CDT) Sodium 138 135 - 145 mmol/L 02/28/2024 8:46 AM [facility] LABORAT[facility] Comment:Reference intervals for this test were updated on 06/13/2023 to more accurately reflect our healthy population. There may be differences in the flagging of prior results with similar values performed with this method. Interpretation of those prior results can be made in the context of the updated reference intervals. Potassium 3.7 3.4 - 5.3 mmol/L 02/28/2024 8:46 AM [facility] Chloride 99 98 - 107 mmol/L 02/28/2024 8:46 AM [facility] Carbon Dioxide (CO2) 32(H) 22 - 29 mmol/L 02/28/2024 8:46 AM [facility] Anion Gap 7 7 - 15 mmol/L 02/28/2024 8:46 AM [facility] Urea Nitrogen 27.0(H) 8.0 - 23.0 mg/dL 02/28/2024 8:46 AM [facility] Creatinine 1.80(H) 0.51 - 0.95 mg/dL 02/28/2024 8:46 AM [facility] GFR Estimate 27(L) >60 mL/min/1. 73m2 02/28/2024 8:46 AM [facility] Calcium 13.7(H) 8.8 - 10.2 mg/dL 02/28/2024 8:46 AM CDT LABORATORY Glucose 120(H) 70 - 99 mg/dL 02/28/2024 8:46 AM CDT LABORATORY Blood STRUCTURE OF RIGHT UPPER LIMB / Unknown Venipuncture / Unknown 02/28/2024 8:03 AM CDT 02/28/2024 8:13 AM CDT Margarita Ruiz MD LAB - BLOOD ORDER JENNIFER LABORATORY [facility] [address], [address] [place] [address], [place] [phone] * (ABNORMAL) Ionized Calcium (02/28/2024 8:03 AM CDT) Calcium Ionized Whole Blood 7.3(HH) 4.4 - 5.2 mg/dL 02/28/2024 8:43 AM CDT LABORATORY Blood STRUCTURE OF RIGHT UPPER LIMB / Unknown Venipuncture / Unknown 02/28/2024 8:03 AM CDT 02/28/2024 8:13 AM CDT Margarita Ruiz MD LAB - BLOOD ORDER JENNIFER [facility] Lab [address], [address] [place] [address], [place] [phone] * Uric acid (02/28/2024 8:03 AM CDT) Uric Acid 3.4 2.4 - 5.7 mg/dL 02/28/2024 8:40 AM CDT LABORATORY Blood STRUCTURE OF RIGHT UPPER LIMB / Unknown Venipuncture / Unknown 02/28/2024 8:03 AM CDT 02/28/2024 8:13 AM CDT Margarita Ruiz MD LAB - BLOOD ORDER JENNIFER LABORATORY [facility] Acute Care Lab [address], [address] [place] [address], [facility] [phone] * Magnesium (02/28/2024 8:03 AM CDT) Magnesium 1.8 1.7 - 2.3 mg/dL 02/28/2024 8:46 AM CDT LABORATORY Blood STRUCTURE OF RIGHT UPPER LIMB / Unknown Venipuncture / Unknown 02/28/2024 8:03 AM CDT 02/28/2024 8:13 AM CDT Margarita Ruiz MD LAB - BLOOD ORDER JENNIFER LABORATORY [facility] [address], [address] [place] [address], [facility] [phone] * Magnesium (02/27/2024 9:31 AM CDT) [facility] Magnesium 1.9 1.7 - 2.3 mg/dL 02/27/2024 11:07 AM CDT LABORATORY Blood STRUCTURE OF RIGHT UPPER LIMB / Unknown Venipuncture / Unknown 02/27/2024 9:31 AM CDT 02/27/2024 9:39 AM CDT Margarita Ruiz MD LAB - BLOOD ORDER JENNIFER LABORATORY [facility] [address], [address] [place] [address], [facility] [phone] * (ABNORMAL) CBC with platelets (02/27/2024 9:31 AM CDT) Pathologist [facility] WBC Count 16.7(H) 4.0 - 11.0 10e3/uL [...] MD LAB - BLOOD ORDER JENNIFER LABORATORY [facility] Lab [address], [address] [place] [address], [facility] [phone] * (ABNORMAL) Basic metabolic panel (02/27/2024 9:31 AM CDT) [facility] Sodium 140 135 - 145 mmol/L 02/27/2024 10:[facility] Comment:Reference intervals for this test were [...] 98 - 107 mmol/L 02/27/2024 10:23 AM CDT LABORATORY Carbon Dioxide (CO2) 29 22 - [...] - BLOOD ORDER JENNIFER [facility] Lab [address], [address] [place] [address], [facility] [phone] * Phosphorus (02/27/2024 9:31 AM CDT) Phosphorus 3.6 2.5 - 4.5 mg/dL 02/27/2024 7:52 PM CDT LABORATORY Blood STRUCTURE OF RIGHT UPPER LIMB / Unknown Venipuncture / Unknown 02/27/2024 9:31 AM CDT 02/27/2024 9:39 AM CDT Margarita Ruiz MD LAB - BLOOD ORDER JENNIFER [facility] Lab [address], [address] [place] [address], [place] [phone] * XR Abdomen 1 View (02/26/2024 1:48 [...] MD LAB - BLOOD ORDERABL ES LABORATORY [facility] Lab [address], [address] [place] [address], [facility] [phone] * (ABNORMAL) CBC with platelets (02/26/2024 4:52 [...] MD LAB - BLOOD ORDER JENNIFER LABORATORY [facility] Lab [address], [address] [place] [address], [facility] [phone] * (ABNORMAL) Basic metabolic panel (02/26/2024 4:52 AM CDT) Pathologist [facility] Sodium 138 135 - 145 mmol/L 02/26/2024 [...] 4:52 AM CDT 02/26/2024 4:58 AM CDT [place] Pham Ruiz MD LAB - BLOOD ORDER JENNIFER LABORATORY [facility] Lab [address], [address] [place] [address], [facility] [phone] * Potassium (02/26/2024 4:52 AM CDT) [facility] Potassium 4.1 3.4 - 5.3 mmol/L 02/26/2024 5:17 AM CDT LABORATORY Blood STRUCTURE OF RIGHT HAND / Unknown Venipuncture / Unknown 02/26/2024 4:52 AM CDT 02/26/2024 4:57 AM CDT Margarita Ruiz MD LAB - BLOOD ORDER JENNIFER LABORATORY [facility] [address], [address] [place] [address], [place] [phone] * Magnesium (02/26/2024 4:52 AM CDT) Magnesium 1.9 1.7 - 2.3 mg/dL 02/26/2024 5:17 AM CDT LABORATORY Blood STRUCTURE OF RIGHT HAND / Unknown Venipuncture / Unknown 02/26/2024 4:52 AM CDT 02/26/2024 4:57 AM CDT Margarita Ruiz MD LAB - BLOOD ORDER JENNIFER LABORATORY [facility] [address], [address] [place] [address], [place] [phone] * Lactate Dehydrogenase (02/26/2024 4:52 AM CDT) Lactate Dehydrogenase 207 0 - 250 U/L 02/26/2024 5:17 AM CDT LABORATORY Blood STRUCTURE OF RIGHT HAND / Unknown Venipuncture / Unknown 02/26/2024 4:52 AM CDT 02/26/2024 4:57 AM CDT Margarita Ruiz MD LAB - BLOOD ORDER JENNIFER LABORATORY [facility] [address], [address] [place] [address], [place] [phone] * Phosphorus (02/26/2024 4:52 AM CDT) Phosphorus 3.5 2.5 - 4.5 mg/dL 02/26/2024 5:17 AM CDT LABORATORY Blood STRUCTURE OF RIGHT HAND / Unknown Venipuncture / Unknown 02/26/2024 4:52 AM CDT 02/26/2024 4:57 AM CDT Margarita Ruiz MD LAB - BLOOD ORDER JENNIFER LABORATORY [facility] [address], [address] [place] [address], [facility] [phone] * (ABNORMAL) Potassium (02/25/2024 9:04 PM CDT) Potassium 3.3(L) 3.4 - 5.3 mmol/L 02/25/2024 9:56 PM CDT LABORATORY Blood STRUCTURE OF RIGHT HAND / Unknown Venipuncture / Unknown 02/25/2024 9:04 PM CDT 02/25/2024 9:31 PM CDT Margarita Ruiz MD LAB - BLOOD ORDER JENNIFER Performing Organization Address City/[facility]/ZIP Co de Phone Number LABORATORY [facility] [address], [address] [address], [place] [phone] * Magnesium (02/25/2024 9:04 PM CDT) Magnesium 1.9 1.7 - 2.3 mg/dL 02/25/2024 9:56 PM CDT LABORATORY Blood STRUCTURE OF RIGHT HAND / Unknown Venipuncture / Unknown 02/25/2024 9:04 PM CDT 02/25/2024 9:31 PM CDT Margarita Ruiz MD LAB - BLOOD ORDER JENNIFER LABORATORY [facility] [address], [address] [place] [address], [place] [phone] * Phosphorus (02/25/2024 12:03 PM CDT) Phosphorus 2.9 2.5 - 4.5 mg/dL 02/25/2024 4:47 PM CDT LABORATORY Blood STRUCTURE OF RIGHT HAND / Unknown Venipuncture / Unknown 02/25/2024 12:03 PM CDT 02/25/2024 12:31 PM CDT Margarita Ruiz MD LAB - BLOOD ORDER JENNIFER LABORATORY [facility] Lab [address], [address] [place] [address], [facility] [phone] * (ABNORMAL) CBC with platelets (02/25/2024 12:03 [...] MD LAB - BLOOD ORDER JENNIFER LABORATORY [facility] Lab [address], [address] [place] [address], [facility] [phone] * (ABNORMAL) Basic metabolic panel (02/25/2024 12:03 PM CDT) [facility] Sodium 137 135 - 145 mmol/L 02/25/2024 12:58 PM CDT LABORATORY Comment:Reference intervals for this test were updated on 06/13/2023 to more accurately reflect our healthy population. There may be differences in the flagging of prior results with similar values performed with this method. Interpretation of those prior results can be made in the context of the updated reference intervals. Potassium 3.0(L) 3.4 - 5.3 mmol/L 02/25/2024 12:58 PM T LABORATORY Chloride 96(L) 98 - 107 mmol/L 02/25/2024 12:58 PM T LABORATORY Carbon Dioxide (CO2) 29 22 - 29 mmol/L 02/25/2024 12:58 PM T LABORATORY Anion Gap 12 7 - 15 mmol/L 02/25/2024 12:58 PM T LABORATORY Urea Nitrogen 23.2(H) 8.0 - 23.0 mg/dL 02/25/2024 12:58 PM [facility] LAB[facility] Creatinine 1.48(H) 0.51 - 0.95 mg/dL 02/25/2024 12:58 PM T LABORATORY GFR Estimate 35(L) >60 mL/min/1. 73m2 02/25/2024 12:58 PM T LABORATORY Calcium 12.8(H) 8.8 - 10.2 mg/dL 02/25/2024 12:58 PM T LABORATORY Glucose 182(H) 70 - 99 mg/dL 02/25/2024 12:58 PM [facility] LABORATORY Blood STRUCTURE OF RIGHT HAND / Unknown Venipuncture / Unknown 02/25/2024 12:03 PM CDT 02/25/2024 12:31 PM CDT Margarita Ruiz MD LAB - BLOOD ORDER JENNIFER LABORATORY [facility] [address], [address] [place] [address], [facility] [phone] * (ABNORMAL) Ionized Calcium (02/25/2024 12:03 PM CDT) Calcium Ionized Whole Blood 6.7(H) 4.4 - 5.2 mg/dL 02/25/2024 12:31 PM CDT LABORATORY Blood STRUCTURE OF RIGHT HAND / Unknown Venipuncture / Unknown 02/25/2024 12:03 PM CDT 02/25/2024 12:29 PM CDT Margarita Ruiz MD LAB - BLOOD ORDER JENNIFER LABORATORY [facility] [address], [address] [address], [facility] [phone] * (ABNORMAL) Lactate Dehydrogenase (02/25/2024 12:03 PM CDT) Lactate Dehydrogenase 308(H) 0 - 250 U/L 02/25/2024 12:58 PM CDT LABORATORY Blood STRUCTURE OF RIGHT HAND / Unknown Venipuncture / Unknown 02/25/2024 12:03 PM CDT 02/25/2024 12:31 PM CDT Margarita Ruiz MD LAB - BLOOD ORDER JENNIFER LABORATORY [facility] [address], [address] [place] [address], [place] [phone] * (ABNORMAL) Magnesium (02/25/2024 12:03 PM CDT) Magnesium 1.5(L) 1.7 - 2.3 mg/dL 02/25/2024 12:58 PM CDT LABORATORY Blood STRUCTURE OF RIGHT HAND / Unknown Venipuncture / Unknown 02/25/2024 12:03 PM CDT 02/25/2024 12:31 PM CDT Margarita Ruiz MD LAB - BLOOD ORDER JENNIFER LABORATORY [facility] [address], [address] [place] [address], [place] [phone] * (ABNORMAL) Uric acid, Rasburicase (02/25/2024 12:03 PM CDT) Uric Acid, Rasburicase 1.0(L) 2.4 - 5.7 mg/dL 02/25/2024 12:51 PM CDT LABORATORY Comment:Uric Acid specimen d rawn and processed following the post-Rasburicase monitoring protocol. Blood STRUCTURE OF RIGHT HAND / Unknown Venipuncture / Unknown 02/25/2024 12:03 PM CDT 02/25/2024 12:29 PM CDT Gallito Whitehead MD LAB - BLOOD ORDERABL ES Performing Organization Address City/[facility]/ZIP Co de Phone Number LABORATORY [facility] [address], [address] [place] [address], [place] [phone] * XR Chest 2 Views (02/25/2024 3:17 [...] CDT EXAM: XR CHEST 2 VIEWS LOCATION: [facility] DATE: 02/25/2024 INDICATION: Shortness of breath. Hypercalcemia with fluid, but also got Rasburicase recently. COMPARISON: CT chest, abdomen and pelvis with IV contrast 01/03/2024. Procedure Note Antoinette Bobby MD - 02/25/2024 EXAM: XR CHEST 2 VIEWS LOCATION: [facility] DATE: 02/25/2024 INDICATION: Shortness of breath. [...] MD LAB - BLOOD ORDERABL ES LABORATORY [facility] Lab [address], [address] [place] [address], [facility] [phone] * Magnesium (02/24/2024 7:45 AM CDT) Pathologist [facility] Magnesium 1.7 1.7 - 2.3 mg/dL 02/24/2024 8:19 AM CDT LABORATORY Blood STRUCTURE OF LEFT HAND / Unknown Venipuncture / Unknown 02/24/2024 7:45 AM CDT 02/24/2024 8:01 AM CDT Margarita Ruiz MD LAB - BLOOD ORDER JENNIFER LABORATORY [facility] Lab [address], [address] [place] [address], [facility] [phone] * (ABNORMAL) CBC with platelets (02/24/2024 7:45 [...] MD LAB - BLOOD ORDER JENNIFER LABORATORY [facility] Lab [address], [address] [place] [address], [place] [phone] * (ABNORMAL) Basic metabolic panel (02/24/2024 7:45 AM CDT) [facility] Sodium 138 135 - 145 mmol/L 02/24/2024 8:36 AM [facility] Comment:Reference intervals for this test were updated on 06/13/2023 to more accurately reflect our healthy population. There may be differences in the flagging of prior results with similar values performed with this method. Interpretation of those prior results can be made in the context of the updated reference intervals. Potassium 3.6 3.4 - 5.3 mmol/L 02/24/2024 8:36 AM [facility] Chloride 103 98 - 107 mmol/L 02/24/2024 8:36 AM [facility] Carbon Dioxide (CO2) 24 22 - 29 mmol/L 02/24/2024 8:36 AM [facility] Anion Gap 11 7 - 15 mmol/L 02/24/2024 8:36 AM T LABORATORY Urea Nitrogen 25.5(H) 8.0 - 23.0 mg/dL 02/24/2024 8:36 AM [facility] Creatinine 1.38(H) 0.51 - 0.95 mg/dL 02/24/2024 8:36 AM T LABORATORY GFR Estimate 38(L) >60 mL/min/1. 73m2 02/24/2024 8:36 AM T LABORATORY Calcium 12.6(H) 8.8 - 10.2 mg/dL 02/24/2024 8:36 AM T LABORATORY Glucose 121(H) 70 - 99 mg/dL 02/24/2024 8:36 AM [facility] Blood STRUCTURE OF LEFT HAND / Unknown Venipuncture / Unknown 02/24/2024 7:45 AM CDT 02/24/2024 8:00 AM CDT Margarita Ruiz MD LAB - BLOOD ORDER JENNIFER LABORATORY [facility] [address], [address] [place] [address], [facility] [phone] * Magnesium (02/23/2024 11:27 PM CDT) Magnesium 1.8 1.7 - 2.3 mg/dL 02/23/2024 11:57 PM CDT LABORATORY Blood STRUCTURE OF LEFT HAND / Unknown Venipuncture / Unknown 02/23/2024 11:27 PM CDT 02/23/2024 11:37 PM CDT Margarita Ruiz MD LAB - BLOOD ORDER JENNIFER Performing Organization Address City/[facility]/ZIP Co de Phone Number LABORATORY [facility] [address], [address] [place] [address], [facility] [phone] * Potassium (02/23/2024 11:31 AM CDT) Potassium 3.8 3.4 - 5.3 mmol/L 02/23/2024 12:08 PM CDT LABORATORY Blood STRUCTURE OF LEFT HAND / Unknown Venipuncture / Unknown 02/23/2024 11:31 AM CDT 02/23/2024 11:45 AM CDT Margarita Ruiz MD LAB - BLOOD ORDER JENNIFER LABORATORY [facility] [address], [address] [place] [address], [facility] [phone] * (ABNORMAL) Magnesium (02/23/2024 11:31 AM CDT) Magnesium 1.3(L) 1.7 - 2.3 mg/dL 02/23/2024 12:08 PM CDT LABORATORY Blood STRUCTURE OF LEFT HAND / Unknown Venipuncture / Unknown 02/23/2024 11:31 AM CDT 02/23/2024 11:45 AM CDT Margarita Ruiz MD LAB - BLOOD ORDER JENNIFER [facility] [address], [address], [place] [address], [place] [phone] * Lactate Dehydrogenase (02/23/2024 4:36 AM CDT) Lactate Dehydrogenase 235 0 - 250 U/L 02/23/2024 5:17 AM CDT LABORATORY Blood STRUCTURE OF RIGHT UPPER LIMB / Unknown Venipuncture / Unknown 02/23/2024 4:36 AM CDT 02/23/2024 4:53 AM CDT Gallito Whitehead MD LAB - BLOOD ORDERABL ES Performing Organization Address City/[facility]/ZIP Co de Phone Number [facility] [address], [address], [place] [address], [place] [phone] * (ABNORMAL) Ionized Calcium (02/23/2024 4:36 AM CDT) Calcium Ionized Whole Blood 6.9(H) 4.4 - 5.2 mg/dL 02/23/2024 4:45 AM CDT LABORATORY Blood STRUCTURE OF RIGHT UPPER LIMB / Unknown Venipuncture / Unknown 02/23/2024 4:36 AM CDT 02/23/2024 4:42 AM CDT Gallito Whitehead MD LAB - BLOOD ORDERABL ES LABORATORY [facility] [address], [address] [place] [address], [place] [phone] * Phosphorus (02/23/2024 4:36 AM CDT) Phosphorus 2.8 2.5 - 4.5 mg/dL 02/23/2024 5:17 AM CDT LABORATORY Blood STRUCTURE OF RIGHT UPPER LIMB / Unknown Venipuncture / Unknown 02/23/2024 4:36 AM CDT 02/23/2024 4:53 AM CDT Gallito Whitehead MD LAB - BLOOD ORDERABL ES LABORATORY [facility] Lab [address], [address] [place] [address], [facility] [phone] * (ABNORMAL) Basic metabolic panel (02/23/2024 4:36 [...] 98 - 107 mmol/L 02/23/2024 5:[facility] Carbon Dioxide (CO2) 25 22 - [...] MD LAB - BLOOD ORDERABL ES LABORATORY [facility] [address] 1[address] floor, [address] [place] [address], [place] [phone] * Uric acid, Rasburicase lab to be [...] MD LAB - BLOOD ORDERABL ES LABORATORY [facility] [address] 1[address], [address] [place] [address], [place] [phone] * (ABNORMAL) CBC with platelets (02/23/2024 4:36 [...] MD LAB - BLOOD ORDERABL ES LABORATORY [facility] Acute Care Lab [address] 1[address] floor, [address] [place] [address], [facility] [phone] * (ABNORMAL) Comprehensive metabolic panel (02/23/2024 4:36 AM CDT) [facility] Sodium 137 135 - 145 mmol/L 02/23/2024 [...] - 15 mmol/L 02/23/2024 5:17 AM [facility] Urea Nitrogen 31.3(H) 8.0 - 23.0 mg/dL 02/23/2024 5:17 AM [facility] Creatinine 1.65(H) 0.51 - 0.95 mg/dL 02/23/2024 5:17 AM [facility] GFR Estimate 30(L) >60 mL/min/1. 73m2 02/23/2024 5:17 AM [facility] Calcium 12.7(H) 8.8 - 10.2 mg/dL 02/23/2024 5:17 AM [facility] Chloride 101 98 - 107 mmol/L 02/23/2024 5:17 AM [facility] Glucose 124(H) 70 - 99 mg/dL 02/23/2024 5:17 AM [facility] Alkaline Phosphatase 83 40 - 150 U/L 02/23/2024 5:17 AM [facility] AST 14 0 - 45 U/L 02/23/2024 5:17 AM [facility] Comment:Reference intervals for this test were updated on 02/27/2023 to more accurately reflect our healthy population. There may be differences in the flagging of prior results with similar values performed with this method. Interpretation of those prior results can be made in the context of the updated reference intervals. ALT 6 0 - 50 U/L 02/23/2024 5:17 AM [facility] Comment:Reference intervals for this test were updated on 02/27/2023 to more accurately reflect our healthy population. There may be differences in the flagging of prior results with similar values performed with this method. Interpretation of those prior results can be made in the context of the updated reference intervals. Protein Total 4.9(L) 6.4 - 8.3 g/dL 02/23/2024 5:17 AM [facility] Albumin 3.0(L) 3.5 - 5.2 g/dL 02/23/2024 5:17 AM [facility] Bilirubin Total 0.2 <=1.2 mg/dL 02/23/2024 5:17 AM [facility] Blood STRUCTURE OF RIGHT UPPER LIMB / Unknown Venipuncture / Unknown 02/23/2024 4:36 AM CDT 02/23/2024 4:53 AM CDT Gallito Whitehead MD LAB - BLOOD ORDERABL ES LABORATORY [facility] Acute Care Lab [address], [address] [place] [address], [place] [phone] documented in this encounter Visit Diagnoses Diagnosis [...] 20 mEq 20 mEq, Oral, ONCE, On [facility] 02/29/24 at 0930, For 1 dose, Potassium level 3.1 - 3.4 mmol/L Ordered from the Potassium replacement order set. DO NOT CRUSH, Potassium Replacement: Potassium level 3.1-3.4 mmol/L, Recheck: Potassium level 4 hours AFTER last oral dose $Given 02/29/2024 11:06 AM CDT 20 mEq potassium chloride tien ER (KLOR-CON M20) CR tablet 40 mEq 40 mEq, Oral, ONCE, On [place] 02/25/24 at 1430, For 1 dose, Potassium [...] Minutes, Infuse IV over 30 miutes $New Bag 02/23/2024 12:27 AM CDT 6 mg senna-docusate [...] Mon02/28/24 at 1100, Until Mon02/29/24 at 1415 $02/29/2024 1:20 AM CDT 75 mL/hr $02/28/2024 11:05 AM CDT 75 mL/hr sodium chloride 0.9% BOLUS 1,000 mL Intravenous, 1,000 mL, ONCE, at 1,000 mL/hr, Administer over 1 Hours, On Mon02/23/24 at 0030, For 1 dose $02/23/2024 12:28 AM CDT 1,000 mLs 1000 mL/hr [...] dose 1105 ($Given - Provider: Luisa Alcazar, RN) enoxaparin ANTICOAGULANT (LOVENOX) injection 30 mg 30 [...] DAILY, First dose (after last modification) on [facility] 02/24/24 at 2100, 1 Packet = [...] DAILY, First dose (after last modification) on [place] 02/25/24 at 2100, Hold for loose stools. [...] Zulma Woodard RN)0857 ($Given - Provider: Luisa Alaczar, CHRISTEN)1700 (Not Given - Provider: Brit Thompson [...] CHRISTEN) 0120 ($New Bag - Provider: Maureen Crowell RN)1109 (Stopped - Provider: Yessy Martell) PRN Medication [...] 0344 (See Alternativ e - Provider: Maureen Crowell RN) acetaminophen (TYLENOL) tablet 650 mg(Linked Group 1) [...] 6 HOURS PRN, vomiting, Starting on Gwendolyn 24 at 2335, [...] Administer over 2-5 Minutes, Starting on Gwendolyn 624 at 2335, Give IF patient unable to [...] documented as of this encounter Care Teams Backhaul Driver Relationship Specialty Start Date End Date Alisha Yuan MD [address] [id number] PCP - General Family Medicine 01/11/24 documented as of this encounter
--- OUTSIDE RECORDS SUMMARY | 2024-04-23 14:12 | XMS_ITS | Encounter Summary ---
Author Organization [facility] Address [address] [place] [address] Care Team Providers Care Manager Multicultural Name Role Phone Zena Yuan MD Primary Care Provider [phone] Reason for Referral * Therapeutic Imaging/IR (Priority: 1-2 Weeks) - Closed Specialty Diagnoses / Procedures Referred By Contac t Referred To Contact Radiology. 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 (H) Procedures IR Chest Port Placement > 5 Yrs of Age IR Referral Fortunato Velarde MD [facility] [address] [place] [address] Interventional Rad [address] [place] [address] Referral ID Status Reason Start Date Expiration Date Visits Re quested Visits Authorized [id number] Closed 03/27/2024 03/27/2025 1 1 Encounter Details Date Type Department Care Team (Late st Contact Info) Description 04/04/2024 7:42 AM CDT - 04/04/2024 10:51 AM CDT Hospital Encounter [facility] [address] [place] [address] Juliana Sher DO [facility] [address] [place] [address] Uche Douglas MD [facility] [address] [place] [address] Follicular lymphoma grade II of lymph nodes [...] AM CD T Respiratory Rate 16 04/04/2024 10:24 AM CDT Oxygen Saturation 92% 04/04/2024 10:24 AM CDT Inhaled Oxygen Concentration - - Weight - - Height - - Body Mass Index - - documented in this encounter Discharge Instructions * Attachments The following attachments cannot be sent through Care Everywhere. * (s) After You???ve Had a Port Put In: Port Placement Discharge Instructions (Upper Sorbian) documented in this encounter Medications at Time [...] tablet 02/29/2024 documented as of this encounter Procedure Notes * Uche Douglas MD - 04/04/2024 9:50 AM CDT RADIOLOGY POST PROCEDURE NOTE WITH SEDATION Patient name: Dipika Franco : 1940 Pre-procedure diagnosis: Lymphoma Post-procedure diagnosis: Same Procedure Date/Time: April 04, 2024 9:50 AM Procedure: Port-a-cath placement Estimated blood loss: Minimal Sedation: Moderate sedation was employed. The patient was monitored by a nurse at all times during the procedure under my direct supervision. Specimen(s) collected with description: None I determined this patient to be an appropriate candidate for the planned sedation and procedure andreassessed the patient IMMEDIATELY PRIOR to sedation and procedure. The patient tolerated the procedure well with no immediate complications. Significant findings: Successful placement of port-a-cath. Ready for immediate use. See imaging dictation for procedural details. Provider name: Uche Douglas M.D. Prepress Supervisor(s):None documented in this encounter Miscellaneous Notes * IR Note - Barbara Fisher RN - 04/04/2024 10:40 AM CDT Pt vitally stable on room air. Discharge instructions gone over with pt and family. Discharged homewith family. Questions answered. * Sedation Documentation - Ifeanyi Cornejo RN - 04/04/2024 9:37 AM CDT Post Procedure Summary: Prior to the start of the procedure and with procedural staff participation, I verbally confirmed the patient???s identity using two indicators, relevant allergies, that the procedure was appropriateand matched the consent or emergent situation, and that the correct equipment/implants were available. Immediately prior to starting the procedure I conducted the Time Out with the procedural staff and re-confirmed the patient???s name, procedure, and site/side. (The Joint Commission universal protocol was followed.) Yes Sedatives: Fentanyl and Midazolam (Versed) Vital signs, airway and pulse oximetry were monitored and remained stable throughout the procedure and sedation was maintained until the procedure was complete. The patient was monitored by staff until sedation discharge criteria were met. Patient tolerance: Patient tolerated the procedure well with no immediate complications. Time of sedation in minutes: 15 Minutes minutes from beginning to end of physician one to one monitoring. * Pre-Procedure - Uche Douglas MD - 04/04/2024 8:45 AM CDT GENERAL PRE-PROCEDURE: Procedure: Chest port placement Written consent obtained?: Yes Risks and benefits: Risks, benefits and alternatives were discussed Consent given by: Patient Patient states understanding of procedure being performed: Yes Patient's understanding of procedure matches consent: Yes Procedure consent matches procedure scheduled: Yes Expected level of sedation: Moderate Appropriately NPO: Yes ASA Class: 2 Mallampati : Grade 2- soft palate, base of uvula, tonsillar pillars, and portion of posterior pharyngeal wall visible Lungs: Lungs clear [...] sites (H) CBC WITH PLATELETS STAT 04/04/2024 8:00 AM CDT documented in this encounter Results * IR Chest Port Placement > 5 Yrs of Age (04/04/2024 9:38 AM CDT) Anatomical Region Laterality Modality Chest Radio Fluoroscop y, Radio Fluoroscopy Impressions 04/04/2024 10:14 AM CDT IMPRESSION: Fluoroscopic and ultrasound guided placement of right internal jugular Power Port. UCHE DOUGLAS MD Narrative 04/04/2024 10:14 AM CDT [facility] EXAM: IMPLANTABLE RIGHT INTERNAL JUGULAR CHEST [...] observer. The physician spent 50 minutes of [id number] moderate sedation time with the patient. ADDITIONAL [...] Procedure Note Uche Douglas MD - 04/04/2024 [facility] EXAM: IMPLANTABLE RIGHT INTERNAL JUGULAR CHEST [...] observer. The physician spent 50 minutes of [id number] moderate sedation time with the patient. ADDITIONAL [...] Port. UCHE DOUGLAS MD Fortunato Velarde MD G IR ORDERABLES * (ABNORMAL) CBC with platelets (04/04/2024 8:00 AM CDT) WBC Count 19.4(H) 4.0 - 11.0 10e3/uL [...] CDT 04/04/2024 8:03 AM CDT Priti Doss [facility] LAB - BLOOD ORDERABLES LABORATORY [facility] Acute Care Lab [address] [facility] (1st floor, no room number) [place] [address], [facility] documented in this encounter Visit Diagnoses Diagnosis Follicular lymphoma grade II of lymph nodes of multiple sites (H) Nodular lymphoma of lymph nodes of multiple sites documented in this encounter Administered Medications Inactive Administered Medications - up to 3 most recent administrations Medication Order MAR Action Action Date Dose Rate Site acetaminophen (TYLENOL) tablet 650 mg 650 mg, Oral, ONCE PRN, mild pain, Starting on Gwendolyn 04/04/24 at 1007, Maximum acetaminophen dose from all sources = 75 mg/kg/day not to exceed 4 grams/day. ceFAZolin Sodium (ANCEF) injection 2 g Routine, 2 g, Intravenous, PRE-OP/PRE-PROCEDURE, Starting on Gwendolyn 04/04/24 at 0745, For 1 dose, Give dose within 1 hour PRIOR to procedure. If patient weight is greater than or equal to 120 kg change dose to 3 g., Indications: Perioperative Pharmacoprophylaxis, IR Pre-procedure $Given 04/04/2024 9:15 AM CDT 2 g fentaNYL (PF) (SUBLIMAZE) injection 25-50 mcg 25-50 mcg, Intravenous, EVERY 5 MIN PRN, severe pain, If inadequate response may repeat 25 mcg IV slowly every 5 min PRN severe pain; when verbally requested by provider., Administer over 2 Minutes, Starting on Gwendolyn 04/04/24 at 0745, Doses can be exceeded under direct oversight of patient by physician., IR Intra-procedure fentaNYL (PF) (SUBLIMAZE) injection Intravenous, PRN, Administer over 3-5 Minutes, Starting on Gwendolyn 04/04/24 at 0926, Anesthesia Intra-op $Given 04/04/2024 9:26 AM CDT 50 mcg flumazenil (ROMAZICON) injection 0.2 mg 0.2 mg, Intravenous, EVERY 1 MIN PRN, benzodiazepine reversal, If inadequate response after 45 seconds, may repeat 0.2 mg IV every 1 minute PRN oversedation., Administer over 1 Minutes, Starting on Gwendolyn 04/04/24 at 0745, Give over 15 seconds. Maximum total dose of 1 mg. Continue monitoring until discharge criteria met for a minimum of 2 hours. Use with caution in patients on benzodiazepine therapy., IR Intra-procedure lidocaine 1 % 1-30 mL 1-30 mL, Intradermal, ONCE PRN, local anesthetic. When verbally ordered by prescriber during the procedure., Starting on Gwendolyn 04/04/24 at 0745, For 1 dose, Dose to be divided into smaller volumes appropriate for the procedure. Provider to administer intradermally., IR Intra-procedure lidocaine 1 % PRN, Starting on Gwendolyn 04/04/24 at 0936, Anesthesia Intra-op $Given 04/04/2024 9:36 AM CDT 5 mLs Chest lidocaine 1% with EPINEPHrine 1:100,000 injection PRN, Starting on Gwendolyn 04/04/24 at 0937, Anesthesia Intra-op $Given 04/04/2024 9:37 AM CDT 10 mLs Chest midazolam (VERSED) injection 0.5-2 mg 0.5-2 mg, Intravenous, Administer over 1 Minutes, EVERY 4 MIN PRN, sedation, If inadequate response may repeat 0.5 mg IV slowly every 4 minutes PRN sedation until desired response; when verbally requested by provider., Starting on Gwendolyn 04/04/24 at 0745, Doses can be exceeded under direct oversight of patient by physician. This drug may cause significant respiratory depression. Monitor respiratory status and vital signs carefully for 1 hour after each dose., IR Intra-procedure midazolam (VERSED) injection Intravenous, Administer over 2 Minutes, PRN, Starting on Gwendolyn 04/04/24 at 0925, Anesthesia Intra-op $Given 04/04/2024 9:25 AM CDT 1 mg naloxone (NARCAN) injection 0.2 mg 0.2 mg, Intravenous, EVERY 2 MIN PRN, opioid reversal, Starting on Gwendolyn 04/04/24 at 0745, Administer intravenous route when available and notify [...] parameters have not improved after 4 naloxone doses., IR Intra-procedure naloxone (NARCAN) injection 0.2 mg 0.2 mg, Intramuscular, EVERY 2 MIN PRN, opioid reversal, Starting on Gwendolyn 04/04/24 at 0745, Administer intramuscular if an intravenous route is [...] parameters have not improved after 4 naloxone doses., IR Intra-procedure naloxone (NARCAN) injection 0.4 mg 0.4 mg, Intravenous, EVERY 2 MIN PRN, opioid reversal, Starting on Gwendolyn 04/04/24 at 0745, Administer intravenous route when available and notify [...] parameters have not improved after 4 naloxone doses., IR Intra-procedure naloxone (NARCAN) injection 0.4 mg 0.4 mg, Intramuscular, EVERY 2 MIN PRN, opioid reversal, Starting on Gwendolyn 04/04/24 at 0745, Administer intramuscular if an intravenous route is [...] parameters have not improved after 4 naloxone doses., IR Intra-procedure sodium chloride (PF) 0.9% PF flush 3 mL 3 mL, Intracatheter, EVERY 8 HOURS, First dose on Gwendolyn 04/04/24 at 0800, to lock peripheral IV dormant line, IR Pre-procedure sodium chloride (PF) 0.9% PF flush 3 mL 3 mL, Intracatheter, EVERY 1 MIN PRN, line flush, other, to ensure patency or to lock dormant line, Starting on Gwendolyn 04/04/24 at 0745, IR Pre-procedure sodium chloride 0.9 % bag TABLE SOLN 1 Bag, TABLE SOLN, EVERY 5 MIN PRN, other, Catheter prep table solution use as directed by provider., Starting on Gwendolyn 04/04/24 at 0745, For 5 doses, Maximum total dose 5000 mL Nurse will document number of bags used at the end of the procedure., IR Intra-procedure documented in this encounter Active and Recently Administered Medications Times are shown in CDT. Scheduled Medication Order 04/02/2024 04/03/2024 04/04/2024 ceFAZolin Sodium (ANCEF) injection 2 g (COMPLETED) Routine, 2 g, Intravenous, PRE-OP/PRE-PROCEDURE, Starting on Gwendolyn 04/04/24 at 0745, For 1 dose, Give dose within 1 hour PRIOR to procedure. If patient weight is greater than or equal to 120 kg change dose to 3 g., Indications: Perioperative Pharmacoprophylaxis, IR Pre-procedure 0915 ($Given - Provi henna: Ifeanyi Cornejo RN) sodium chloride (PF) 0.9% PF flush 3 mL 3 mL, Intracatheter, EVERY 8 HOURS, First dose on Gwendolyn 04/04/24 at 0800, to lock peripheral IV dormant line, IR Pre-procedure 0800 (Canceled Entry - Provider: Orders Generic Provider - Comment: Automatically canceled at discontinue of medication order) PRN Medication Order 04/02/2024 04/03/2024 04/04/2024 acetaminophen (TYLENOL) tablet 650 mg 650 mg, Oral, ONCE PRN, mild pain, Starting on Gwendolyn 04/04/24 at 1007, Maximum acetaminophen dose from all sources = 75 mg/kg/day not to exceed 4 grams/day. fentaNYL (PF) (SUBLIMAZE) injection 25-50 mcg 25-50 mcg, Intravenous, EVERY 5 MIN PRN, severe pain, If inadequate response may repeat 25 mcg IV slowly every 5 min PRN severe pain; when verbally requested by provider., Administer over 2 Minutes, Starting on Gwendolyn 04/04/24 at 0745, Doses can be exceeded under direct oversight of patient by physician., IR Intra-procedure fentaNYL (PF) (SUBLIMAZE) injection Intravenous, PRN, Administer over 3-5 Minutes, Starting on Gwendolyn 04/04/24 at 0926, Anesthesia Intra-op 0926 ($Given - Provi henna: Ifeanyi Cornejo RN) flumazenil (ROMAZICON) injection 0.2 mg 0.2 mg, Intravenous, EVERY 1 MIN PRN, benzodiazepine reversal, If inadequate response after 45 seconds, may repeat 0.2 mg IV every 1 minute PRN oversedation., Administer over 1 Minutes, Starting on Gwendolyn 04/04/24 at 0745, Give over 15 seconds. Maximum total dose of 1 mg. Continue monitoring until discharge criteria met for a minimum of 2 hours. Use with caution in patients on benzodiazepine therapy., IR Intra-procedure lidocaine 1 % 1-30 mL 1-30 mL, Intradermal, ONCE PRN, local anesthetic. When verbally ordered by prescriber during the procedure., Starting on Gwendolyn 04/04/24 at 0745, For 1 dose, Dose to be divided into smaller volumes appropriate for the procedure. Provider to administer intradermally., IR Intra-procedure lidocaine 1 % PRN, Starting on Gwendolyn 04/04/24 at 0936, Anesthesia Intra-op 0936 ($Given - Provi henna: Uche Douglas MD) lidocaine 1% with EPINEPHrine 1:100,000 injection PRN, Starting on Gwendolyn 04/04/24 at 0937, Anesthesia Intra-op 0937 ($Given - Provi henna: Uche Douglas MD) midazolam (VERSED) injection 0.5-2 mg 0.5-2 mg, Intravenous, Administer over 1 Minutes, EVERY 4 MIN PRN, sedation, If inadequate response may repeat 0.5 mg IV slowly every 4 minutes PRN sedation until desired response; when verbally requested by provider., Starting on Gwendolyn 04/04/24 at 0745, Doses can be exceeded under direct oversight of patient by physician. This drug may cause significant respiratory depression. Monitor respiratory status and vital signs carefully for 1 hour after each dose., IR Intra-procedure midazolam (VERSED) injection Intravenous, Administer over 2 Minutes, PRN, Starting on Gwendolyn 04/04/24 at 0925, Anesthesia Intra-op 0925 ($Given - Provi henna: Ifeanyi Cornejo RN) naloxone (NARCAN) injection 0.2 mg(Linked Group 1) 0.2 mg, Intravenous, EVERY 2 MIN PRN, opioid reversal, Starting on Gwendolyn 04/04/24 at 0745, Administer intravenous route when available and notify [...] parameters have not improved after 4 naloxone doses., IR Intra-procedure naloxone (NARCAN) injection 0.2 mg(Linked Group 1) 0.2 mg, Intramuscular, EVERY 2 MIN PRN, opioid reversal, Starting on Gwendolyn 04/04/24 at 0745, Administer intramuscular if an intravenous route is [...] parameters have not improved after 4 naloxone doses., IR Intra-procedure naloxone (NARCAN) injection 0.4 mg(Linked Group 1) 0.4 mg, Intravenous, EVERY 2 MIN PRN, opioid reversal, Starting on Gwendolyn 04/04/24 at 0745, Administer intravenous route when available and notify [...] parameters have not improved after 4 naloxone doses., IR Intra-procedure naloxone (NARCAN) injection 0.4 mg(Linked Group 1) 0.4 mg, Intramuscular, EVERY 2 MIN PRN, opioid reversal, Starting on Gwendolyn 04/04/24 at 0745, Administer intramuscular if an intravenous route is [...] parameters have not improved after 4 naloxone doses., IR Intra-procedure sodium chloride (PF) 0.9% PF flush 3 mL 3 mL, Intracatheter, EVERY 1 MIN PRN, line flush, other, to ensure patency or to lock dormant line, Starting on Gwendolyn 04/04/24 at 0745, IR Pre-procedure sodium chloride 0.9 % bag TABLE SOLN 1 Bag, TABLE SOLN, EVERY 5 MIN PRN, other, Catheter prep table solution use as directed by provider., Starting on Gwendolyn 04/04/24 at 0745, For 5 doses, Maximum total dose 5000 mL Nurse will document number of bags used at the end of the procedure., IR Intra-procedure Linked Groups Order Group 1: naloxone (NARCAN) injection 0.2 mgJump to med 0.2 mg, Intravenous, EVERY 2 MIN PRN, opioid reversal, Starting on Gwendolyn 04/04/24 at 0745, Administer intravenous route when available and notify [...] parameters have not improved after 4 naloxone doses., IR Intra- procedure Or naloxone (NARCAN) injection 0.4 mgJump to med 0.4 mg, Intravenous, EVERY 2 MIN PRN, opioid reversal, Starting on Gwendolyn 04/04/24 at 0745, Administer intravenous route when available and notify [...] parameters have not improved after 4 naloxone doses., IR Intra-procedure Or naloxone (NARCAN) injection 0.2 mgJump to med 0.2 mg, Intramuscular, EVERY 2 MIN PRN, opioid reversal, Starting on Gwendolyn 04/04/24 at 0745, Administer intramuscular if an intravenous route is [...] parameters have not improved after 4 naloxone doses., IR Intra- procedure Or naloxone (NARCAN) injection 0.4 mgJump to med 0.4 mg, Intramuscular, EVERY 2 MIN PRN, opioid reversal, Starting on Gwendolyn 04/04/24 at 0745, Administer intramuscular if an intravenous route is [...] parameters have not improved after 4 naloxone doses., IR Intra- procedure documented in this encounter Additional Health Concerns Active Problems Noted Date Diagnosed Date MyC ECC SURG ENROLL 01/17/2024 documented as of this encounter Care Teams Manager Multicultural Relationship Specialty Start Date End Date Zena Yuan MD [address] [address] PCP - General Family Medicine 01/11/24 documented as of this encounter
--- OUTSIDE RECORDS SUMMARY | 2024-04-23 14:13 | XMS_ITS | Encounter Summary ---
Author Organization [place] Address [address] [place] [address] Care Team Providers Care Edging Machine Operator Name Role Phone Zena Yuan MD Primary Care Provider Reason for Visit * Therapeutic Imaging/IR (Urgent: 3-5 Days) - Closed Specialty Diagnoses / Procedures Referred By Contac t Referred To Contact Radiology. Diagnoses Peritoneal carcinomatosis (H) Procedures CT Paracentesis Initial CT Abdomen Retroperitoneal Biopsy IR Referral Helen Escalera MD [facility] [address] Scan [address] [place] [address] Referral ID Status Reason Start Date Expiration Date Visits Re quested Visits Authorized [id number] Closed 01/09/2024 01/08/2025 1 1 Encounter Details Date Type Department Care Team (Late st Contact Info) Description 01/15/2024 10:07 AM CDT - 01/15/2024 11:59 PM CDT Hospital Encounter [facility] [address] [place] [id number] Helen Escalera MD [facility] [address] [address] Peritoneal carcinomatosis (H) Discharge Disposition: Home or [...] HUMMEL MD Narrative 01/15/2024 3:18 PM CDT [facility] LOCATION: [facility] CLINICAL HISTORY: Peritoneal carcinomatosis ??. Patient [...] Procedure Note Demetrius Hummel MD - 01/15/2024 [facility] LOCATION: [facility] CLINICAL HISTORY: Peritoneal carcinomatosis . Patient [...] mLs documented in this encounter Care Teams Edging Machine Operator Relationship Specialty Start Date End Date Zena Yuan MD [address] [place] [address] PCP - General Family Medicine 01/11/24 documented as of this encounter
--- OUTSIDE RECORDS SUMMARY | 2024-04-23 14:13 | XMS_ITS | Clinical Summary ---
Author Organization [facility] Address [place], [place] [address] Care Team Providers Care Accounts Receivable Specialist Name Role Phone [facility] Unavailable [phone] KwabenaZena hanna MD Primary Care Provider Allergies [...] II - Test 1 time/day 1 Device 1 Active lancets (Accu-Chek Fastclix Lancet Drum)Indications: Diabetes mellitus without complication (HC) As directed once daily. Dispense item covered by pt ins. E11.9 NIDDM type II - Test 1 time/day 100 Each 3 2 Active blood sugar diagnostic (Blood Glucose Test) stripIndications: Diabetes mellitus without complication (HC) Test 1 times per day. 100 Each 1 3 Active rosuvastatin (CRESTOR) 10 mg tabletIndications :Dyslipidemia Take 1 Tablet (10 mg) by mouth at bedtime. 90 Tablet 3 3 Active potassium chloride (KLOR-CON M20) 20 mEq extended-release tablet (part/cryst)Indic ations:Hypokalemi a Take 1 Tablet (20 mEq) by mouth once daily with a meal. 90 Tablet 4 Active acetaminophen (TYLENOL) 325 mg tabletIndications :S/P cervical spinal fusion Take 2 Tablets (650 mg) by mouth every 4 hours if needed for Pain. Max acetaminophen dose: 4000mg in 24 hrs. 120 Tablet 4 Active sennosides (SENNA) 8.6 mg tablet Take 1 Tablet (8.6 mg) by mouth 2 times daily if needed for Constipation. 4 Active allopurinoL (ZYLOPRIM) 100 mg tabletIndications :Acute gout of left hand, unspecified cause TAKE 1 TABLET (100 MG) BY MOUTH 3 TIMES DAILY 90 Tablet 4 Active allopurinoL (ZYLOPRIM) 100 mg tablet Take 100 mg by mouth. 4 03/25/20 24 Discontinued Active Problems Problem Noted Date Diagnosed Date [...] Overview: left, 11/24. 19mm. follow up at [facility], 6 months Diverticulosis Resolved Problems Problem Noted Date Diagnosed Date Resolved Date Severe obesity (BMI 35.0-39. 9) with comorbidity 11/22/2016 01/01/2024 Post-operative pain 07/23/2013 05/23/20 Painful Hardware 03/27/2013 04/05/2013 Other secondary hypertension, benign 04/12/2006 02/06/2008 hyperglycemia 04/12/2006 02/06/2008 Other complications due to u nspecified device, implant, and graft 03/01/2006 03/22/2013 Overview: Painful hardware L2-3 Encounters Date Type Department Care Team Description 03/20/[address] [address] Zena Yuan MD Refill Request (Allopurinol) 03/12/2024 Patient Outreach [address] [address] Zena Zambrano RN Serious Illness Conversation (RN follow up) 03/07/2024 11:45 AM CDT Office Visit [address] [address] Zena Yuan MD Serious Illnes Conversation; Hospital F/U; Serious Illness Conversation 03/07/2024 Travel 03/04/2024 2:15 PM CDT Ancillary Procedure [address] [address] 03/04/2024 1:40 PM CDT Office Visit [address] [address] Agustina Blake PA Hand Pain/problem 03/04/[address] [place] [address] Zena Yuan MD orders 03/04/2024 Travel 03/04/2024 Nurse Triage [facility] [address] [place] [address] Zena Yuan MD Finger Pain/problem 03/01/2024 Refill [facility] [address] [place] [address] Zena Yuan MD Refill Request (Potassium chloride); Medication Management 02/29/2024 Telephone [facility] [address] [place] [address] Zena Yuan MD Questions 02/21/2024 Orders Only [facility] Scanner 1 scan: (1-Ord) [facility], 02/21/2024 from Last 3 Months Immunizations Name Administration Dates Next Due AMB Influenza, IIV3 (Age >=3 years)(Flu Clinic Only) 06/13/2013,07/01/2011 COVID-19 vaccine (Moderna 100mcg/0.5mL) PF MDV 10/31/2020,10/03/2020 Influenza, High-dose Inactivated 019,06/24/2016,06/23/2015,2013 Influenza, [...] Labor Labor/2nd/3rd Weight Sex Type Anes PTL Marcelle A1 A5 Name Clin Last Filed Vital [...] 07/04/2014, 07/20/2007 Medical Devices Implanted Type Area Mechanical Equipment Sales Engineer Device Identifier Shelf Expiration Date Model / Serial / Lot Beto Spinal Hex End 20in Titnm Cd - [id number] Implanted:Qty: 1 on 04/27/2010 at [facility] Spine Implants N/A: Spine SOFAMOR DANEK 855-011# / / Xstop Size 14 Mm Implanted:Qty: 1 on 04/12/2006 at [facility] Spine 200 141 / / [id number] Description:XSTOP SIZE 14MM [id number] Canclls Crushed 30cc [[id number]] Implanted:Qty: 1 on 08/09/2006 at [facility] Explanted:at [facility] (Quantity not on file) Spine Allosource 05/06/2011 27 [id number]# / [id number] / Kit Infuse Lg [id number] - [id number] Implanted:Qty: 1 on 08/09/2006 at [facility] Spine SOFAMOR DANEK [id number]# / / [id number] I Hook Narrow Blade Lg Std - [id number] Implanted:Qty: 4 on 04/27/2010 at [facility] N/A: Spine SOFAMOR DANEK 1419240# / / Cnnctr Ti 5.5 16mm Crosslink - [id number] Implanted:Qty: 1 on 04/27/2010 at [facility] N/A: Spine SOFAMOR DANEK 1350206# / / Cnnctr Ti 5.5 22mm Crosslink - [id number] Implanted:Qty: 1 on 04/27/2010 at [facility] N/A: Spine SOFAMOR DANEK [id number]# / / Screw Set Break-Off Hex Titnm - [id number] Implanted:Qty: 4 on 04/27/2010 at [facility] N/A: Spine SOFAMOR DANEK [id number]# / / Kit Infuse Lg [id number] - [id number] Implanted:Qty: 1 on 04/27/2010 at [facility] Spine SOFAMOR DANEK [id number]# / / [id number] A Screw 535x50 Standard Implanted:Qty: 1 on 04/27/2010 at [facility] Spine 835 [id number] / / Description:SCREW 535X50 STA NDARD Screw 4.5x50 Standard Implanted:Qty: 1 on 04/27/2010 at [facility] Spine 835 [address] / / Description:SCREW 4.5X50 STA NDARD Screw 4.5x45 Standard Implanted:Qty: 1 on 04/27/2010 at [facility] Spine 835 [address] / / Description:SCREW 4.5X45 STA NDARD [id number] e Canclls Crushed 60cc [[id number]] Implanted:Qty: 1 on 04/27/2010 at [facility] Explanted:at [facility] (Quantity not on file) Spine Musculoskeletal Transplant 11/19/2012 523540# / [id number] / [id number] e Canclls Crushed 60cc [[id number]] Implanted:Qty: 1 on 04/27/2010 at [facility] Explanted:at [facility] (Quantity not on file) Spine Musculoskeletal Transplant 11/19/2012 587274# / [id number] / Set Screw 3dx - [id number] Implanted:Qty: 7 on 04/27/2010 at [facility] N/A: Spine MEDTRONIC PS MEDICAL 4616415# / / Cnnctr Tsrh 3dx Sm - [id number] Implanted:Qty: 5 on 04/27/2010 at [facility] N/A: Spine Medtronic 2995936# / / Cnnctr Tsrh 3dx Md - [id number] Implanted:Qty: 1 on 04/27/2010 at [facility] N/A: Spine Medtronic 2882433# / / Screw Thin Crest 5.5x45mm - [id number] Implanted:Qty: 2 on 04/27/2010 at [facility] N/A: Spine SOFAMOR DANEK [id number]# / / [id number] Canc 90cc Crushed Freeze Dried [[id number]][[id number]] Implanted:Qty: 1 on 07/16/2013 at [facility] Spine Musculoskeletal Transplant 12/18/2015 430870# / [id number] / [id number] Implanted:Qty: 1 on 07/16/2013 at [facility] Spine SPINAL GRAFT 06/02/2016 4 2275 / [id number] / Description:DBM [id number] GRAFT ON M [id number] Matrix 1x5cm Magnifuse Pcdbm [[id number]] Implanted:Qty: 1 on 07/16/2013 at [facility] Explanted:at [facility] (Quantity not on file) Spine Medtronic Spine/Ortho 05/29/2015 [id number]# / [id number] / Screw Lock 5.5mm Solera Break Off - [id number] Implanted:Qty: 6 on 07/16/2013 by Simón Hodge MD at [facility] N/A: Spine Medtronic Spine/Ortho [id number]# / / Screw Polyaxial 5.5x50 Co Cr Solera - [id number] Implanted:Qty: 2 on 07/16/2013 by Simón Hodge MD at [facility] N/A: Spine Medtronic Spine/Ortho [id number] 50# / / Screw Polyaxial 5.5x55 Co Cr Solera - [id number] Implanted:Qty: 1 on 07/16/2013 by Simón Hodge MD at [facility] N/A: Spine Medtronic Spine/Ortho [id number] 55# / / Screw Polyaxial 6.5x50 Co Cr Solera - [id number] Implanted:Qty: 1 on 07/16/2013 by Simón Hodge MD at [facility] N/A: Spine Medtronic Spine/Ortho [id number] 50# / / Screw Polyaxial 7.5x50 Co Cr Solera - [id number] Implanted:Qty: 1 on 07/16/2013 by Simón Hodge MD at [facility] N/A: Spine Medtronic Spine/Ortho [id number] 50# / / Screw Polyaxial 7.5x55 Co Cr Solera - [id number] Implanted:Qty: 1 on 07/16/2013 by Simón Hodge MD at [facility] N/A: Spine Medtronic Spine/Ortho [id number] 55# / / Beto 5.0n049iq Stra Titnm Alloy Solera - [id number] Implanted:Qty: 2 on 07/16/2013 by Simón Hodge MD at [facility] N/A: Spine Medtronic Spine/Ortho [id number] 0# / / Lauro Stephens Md Std - [id number] Implanted:Qty: 2 on 07/16/2013 by Simón Hodge MD at [facility] N/A: Spine Medtronic Spine/Ortho [id number]# / / Lauro Stephens Md Rmpd Thorac - [id number] Implanted:Qty: 8 on 07/16/2013 by Simón Hodge MD at [facility] N/A: Spine Medtronic Spine/Ortho [id number]# / / Screw Set Break-Off Hex Titnm - [id number] Implanted:Qty: 10 on 07/16/2013 by Simón Hodge MD at [facility] N/A: Spine Medtronic Spine/Ortho 9158571# / / Cnnctr Ti 5.5 16mm Xlink - [id number] Implanted:Qty: 1 on 07/16/2013 by Simón Hodge MD at [facility] N/A: Spine Medtronic Spine/Ortho [id number]# / / Cnnctr Ti 5.5 28mm Xlink - [id number] Implanted:Qty: 1 on 07/16/2013 by Simón Hodge MD at [facility] N/A: Spine Medtronic Spine/Ortho [id number]# / / [id number] 1cc Claiborne Plus Paste Dbm Implanted:Qty: 1 on 05/30/2019 by Josh Casillas MD at [facility] Explanted:at [facility] (Quantity not on file) N/A: Spine Medtronic Spine/Ortho 11/21/2020 [id number]# / [id number] / [id number] 4-10mm 15cc Medtronic Canclls Chips Freeze Dried Implanted:Qty: 1 on 05/30/2019 by Josh Casillas MD at [facility] Explanted:at [facility] (Quantity not on file) N/A: Spine Medtronic Spine/Ortho 09/16/2023 [id number]# / [id number] / Cage 5mm X 16mm X 14mm Implanted:Qty: 1 on 05/30/2019 by Josh Casillas MD at [facility] N/A: Spine [id number] / / 85HK Screw Cerv Ant 4x13mm Atlantistranslational Fa Slf Drill - [id number] Implanted:Qty: 2 on 05/30/2019 by Josh Casillas MD at [facility] N/A: Spine Medtronic Spine/Ortho [id number]# / / Screw Cerv Ant 4x13mm Atlantistranslational Va Slf Drill - [id number] Implanted:Qty: 2 on 05/30/2019 by Josh Casillas MD at [facility] N/A: Spine Medtronic Spine/Ortho [id number]# / / Plate Cerv 1lvl 19mmvision Elite Ant - [id number] Implanted:Qty: 1 on 05/30/2019 by Josh Casillas MD at [facility] N/A: Spine Medtronic Spine/Ortho [id number]# / / Procedures Procedure Name Priority Date/Time Associated Diagnosis Comments XR FINGER 3 VIEWS LEFT ANITA 03/04/2024 2:02 PM CDT Finger pain, left SCAN-ULTRASOUND REPORT 02/21/2024 12:00 AM CDT XR DXA BONE DENSITY [...] @ 03/04/2024 2:48:45 PM (Electronically Signed) [facility] * SCAN-ULTRASOUND REPORT (02/21/2024 [...] recommended in 3-5 years. Tashia Maldonado PA-C [facility] 03/09/2021 Narrative 03/09/2021 1:55 PM CDT XR DXA Bone Mineral Density (BMD) EXAM LOCATION: [address] [address] PATIENT NAME: Kendal Pelayo DATE OF : [...] two scanners are made by the same hydrology professor. 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 01/28/11 Dr. Gilbert Knox 01/28/11
--- OUTSIDE RECORDS SUMMARY | 2024-04-23 14:13 | XMS_ITS | Encounter Summary ---
Author Organization [facility] Address [address] [place] [address] Care Team Providers Care Water Sponger Name Role Phone Zena uYan MD Primary Care Provider [phone] Encounter Details Date Type Department Care Team [...] on filedocumented in this encounter Care Teams Water Sponger Relationship Specialty Start Date End Date Zena Yuan MD [address] [place] [address] PCP - General Family Medicine 01/11/24 documented as of this encounter
--- OUTSIDE RECORDS SUMMARY | 2024-04-23 14:13 | XMS_ITS | Encounter Summary ---
Author Organization [facility] Address [address] [place] [address] Care Team Providers Care Reverse Engineer Name Role Phone Zena Yuan MD Primary Care Provider [phone] Reason for Visit * Auth/Cert Specialty Diagnoses / Procedures Referred By Contsarabjit t Referred To Contact Surgery Diagnoses Intra-abdominal and pelvic swelling, mass and lump, unspecified site Intra-abdominal and pelvic swelling, mass and lump, unspecified site [R19.00] Procedures SD LAPAROSCOPY, SURGICAL, ABDOMEN, PERITONEUM & OMENTUM; DX W/ OR W/O SPECIMEN(S) DIAGNOSTIC LAPAROSCOPY, ABDOMINAL BIOPSIES Periop Services [address] [place] [address] Referral ID Status Reason Start Date Expiration Date Visits Re quested Visits Authorized [id number] 1 1 Encounter Details Date Type Department Care Team (Late st Contact Info) Description 01/22/2024 1:08 PM CDT Anesthesia Event [facility] PeriOP Services [address] [place] [address] Rupesh Denton MD [facility] ANESTHESIA [address] [address] Jazzy Edwards, DANA RESIN SHAVER [address] [address] Anesthesia Record Procedure Summary Procedure Name Responsible Anesthesiologist Anesthesia Start Time Anesthesia Stop Time DIAGNOSTIC LAPAROSCOPY, OMENTAL BIOPSIES, AND EVACUATION OF ASCITES (Abdomen) Rupesh Denton MD 01/22/24 1308 01/22/24 1456 Events Date Time Event Comment 01/22/2024 1208 RESIN SHAVER Ready for Procedure 1234 1308 An Start 1309 An Start Data 1309 AN REASSESS I attest that I have identified and re-evaluated the patient immediately before the induction of anesthesia and I am satisfied that the anesthetic plan is suitable for the patient's condition and procedure. The first vital signs recorded are pre- induction. Jazzy Edwards APRN RESIN SHAVER 1310 MD Present 1312 An Induction 1317 MD Present 1318 An Intubation 1327 Anesthesia Ready for Procedu re 1352 AN INCISION 1431 MD Present 1446 AN Extubation All extubation criteria met prior to removal. 1446 MD Present 1449 an stop data 1456 An Stop Electronically signed by Orville Espino APRN RESIN SHAVER on January 22, 2024 2:56 PM Meds [...] Grade View: 1; Adjucts: Stylet; Placement Person: RESIN SHAVER; Attempts: 2 01/22/24 1318 by Kenzie Jacinto [...] PM Staff - Anesthesiologist: Shar See MD RESIN SHAVER: Kenzie Jacinto APRN RESIN SHAVER Performed By: CRNAIndications and Patient Condition Indications [...] and realistic alternatives discussed. Questions answered and patient/applications sales representative(s) expressed understanding. - Discussed: - Discussed [...] Care Plan MyC ECC SURG ENROLL No Engstrum, Camille Luzma documented as of this encounter Procedures Procedure Name Priority Date/Time Associated Diagnosis Comments ANE AIRWAY ETT PERFORMABLE Routine 01/22/2024 1:18 PM CDT documented in this encounter Results * ANE AIRWAY ETT PERFORMABLE (01/22/2024 1:18 PM CDT) Narrative Kenzie Jacinto APRN RESIN SHAVER - 01/22/2024 1:18 PM CDT Kenzie Jacinto APRN CRNA ? 01/22/2024 ??1:31 PM Airway ? Patient location during procedure: OR ? Procedure Start/Stop Times: 01/22/2024 1:18 PM Staff - ? Anesthesiologist: ??Shar See MD ? RESIN SHAVER: Kenzie Jacinto APRN CRNA ? Performed By: [...] Time: 01/22/2024 1:18 PM Rupesh Denton MD [facility] documented in this encounter Visit Diagnoses [...] 10 mg/mL vial Intravenous, PRN, Starting on 01/22/24 at 1312, Anesthesia Intra-op Rate/Dose Change 01/22/2024 [...] documented as of this encounter Care Teams Reverse Engineer Relationship Specialty Start Date End Date Zena Yuan MD [address] [address] PCP - General Family Medicine 01/11/24 documented as of this encounter
--- OUTSIDE RECORDS SUMMARY | 2024-04-23 14:13 | XMS_ITS ---
Author Organization [facility] Address [address] [place] [address] Care Team Providers Care Director [employer] Name Role Phone Zena Yuan MD Primary Care Provider [phone] Transitional Care Management Status:Closed (Closed) Start date:03/01/2024 Enrollment date:03/02/2024 End date:03/15/2024 Close reason:Goals met Continued Care and Services Coordination
--- OUTSIDE RECORDS SUMMARY | 2024-04-23 14:13 | XMS_ITS | Encounter Summary ---
Author Organization [facility] Address [address] [place] [address] Care Team Providers Care Acid Wash Operator Name Role Phone Zena Yuan MD Primary Care Provider [phone] Reason for Visit * Auth/Cert Specialty Diagnoses / Procedures Referred By Contac t Referred To Contact Surgery Diagnoses Intra-abdominal and pelvic swelling, mass and lump, unspecified site Intra-abdominal and pelvic swelling, mass and lump, unspecified site [R19.00] Procedures MS LAPAROSCOPY, SURGICAL, ABDOMEN, PERITONEUM & OMENTUM; DX W/ OR W/O SPECIMEN(S) DIAGNOSTIC LAPAROSCOPY, ABDOMINAL BIOPSIES Sh Periop Services [address] [place] [address] Referral ID Status Reason Start Date Expiration Date Visits Re quested Visits Authorized [id number] 1 1 Encounter Details Date Type Department Care Team (Late st Contact Info) Description 01/22/2024 11:36 AM CDT - 01/22/2024 4:29 PM CDT Hospital Encounter [facility] PreOP/Phase II [address] [place] [address] Helen Escalera MD [facility] [address] [facility] [address] [place], [place] [address] Carcinomatosis (H) (Primary Dx) Discharge Disposition: Home [...] about your procedure, call Dr. Escalera at [phone] documented in this encounter Medications at Time [...] patient is located in their home in [place], [place], and Dr. Lali Youssef, rachel located in the [facility]. The visit started at 01:45 PM and completed at 02:05 PM. Total time spent on theday of service is 35 minutes including time spent reviewing records, telemedicine visit with the patient, preparing orders, and documentation. Reason for Consult: Peritoneal carcinomatosis Elevated Ca-125 Inability to perform IR-guided biopsy of abdominal cavity History of Present Illness (Hot Plate Plywood Press Feeder Oncology): Ms. Bar is a kiesha 83 [...] ER visit & subsequent hospital admission in [place], [place]. She has had a hysterectomy in [...] to drink Ensure. She normally donnelly in [place] on the [facility] [place], [place]. She also has a son and [place] that she is able to visit. Her brother recently . She lives in [place], [place] the remainder of the year. Oncology Treatment Summary: 01/03/2024: Presented to [place] ER for unintentional weight loss, fatigue, etc. CT chest/abdomen/pelvis w/ IV contrast noted diffuse adenopathy (likely metastatic), omental carcinomatosis, peritoneal nodularity with thickening and mild enhancement, mild to moderate pelvic ascites. 01/10/2024: Tumor markers with Ca-125 = 1068 (elevated), CEA = 0.9 (normal) & Ca 19-9 = 8 (normal). 01/15/2024: IR biopsy requested. 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 Postmenopausal Allergies# NKA Medications: Miscellaneous Drug 1 All medications are currently on hold per patient 01/16 Family History: No family history of cancers. Of note, her son-in-law is a colon Ca patient at [facility]. Social History: She is a never smoker. She denies any alcohol use. She lives alone in [facility] and has extended family for [...] to nature of video visit. Physical Exam (Hot Plate Plywood Press Feeder Oncology): General: The remainder of the physical [...] ascites. Problems: Peritoneal carcinomatosis Assessment & Plan (Hot Plate Plywood Press Feeder Oncology): 1. 83 yo postmenopausal female with [...] her response and her overall functional status. [facility] location is most convenient for her [...] present were apprised of the use of [employer] remote documentationservice and all parties consented to [...] Assistants (if any): Surgeon(s): Helen Escalera MD Node Js Developer: Guillermina Gutiérrez RN Relief Node Js Developer: Eneida Ortiz RN Scrub Person: Nora Arias [...] OR: Satisfactory Helen Escalera MD Gynecologic Oncology [place] [facility] * Op Note - Helen Escalera MD - 01/22/2024 1:52 PM CDT Gynecologic Oncology Operative Report DATE OF PROCEDURE: 01/22/2024 PATIENT NAME: Kendal Pelayo PATIENT PREOPERATIVE DIAGNOSIS: Peritoneal carcinomatosis, omental carcinomatosis, elevated Ca-125 POSTOPERATIVE DIAGNOSIS: Same PROCEDURES: Procedure(s): DIAGNOSTIC LAPAROSCOPY, OMENTAL BIOPSIES, AND EVACUATION OF ASCITES SURGEON: Helen Escalera MD PARK ACTIVITIES COORDINATOR: There were no qualified assistants available to [...] ER visit & subsequent hospital admission in [place], [place]. She has had a hysterectomy in [...] Ensure. Oncology Treatment Summary: 01/03/2024: Presented to [place] ER for unintentional weight loss, fatigue, etc. CT chest/abdomen/pelvis w/ IV contrast noted diffuse adenopathy (likely metastatic), omental carcinomatosis, peritoneal nodularity with thickening and mild enhancement, mild to moderate pelvic ascites. 01/10/2024: Tumor markers with Ca-125 = 1068 (elevated), CEA = 0.9 (normal) & Ca 19-9 = 8 (normal). 01/15/2024: IR biopsy requested. Patient presented to [facility] & did not feel there was a [...] entire procedure. Helen Escalera MD Gynecologic Oncology [place] [facility] 01/22/2024 documented in this encounter Plan of [...] Case Report Surgical Pathology Report ? Case: [id number] ? Authorizing Provider: ??Helen Escalera, ? Collected: ? 01/22/2024 02:18 PM ? Ordering Location: ? [facility] ?Received: ?01/22/2024 02:54 PM ? [facility] Main OR ? Pathologist: ? Candelaria Powers, ? MD ? Specimen: ?Omentum, Omentum Biopsy ? 02/07/2024 12:47 PM [facility] Addendum An addendum is [...] a grade 1-2 process. 02/07/2024 12:47 PM [facility] Addendum electronically signed by Candelaria Powers MD on 02/07/2024 at 12:47 PM Final Diagnosis Omentum, biopsy -Follicular lymphoma, classical pattern 02/07/2024 12:47 PM [facility] Comment The unexpected finding of a lymphoid malignancy has been relayed to Dr. Escalera via her nurse Sherly on case sign out. 02/07/2024 12:47 PM [facility] Clinical Information Procedure: DIAGNOSTIC LAPAROSCOPY, OMENTAL BIOPSIES, AND EVACUATION OF ASCITES Pre-op Diagnosis: Intra-abdominal and pelvic swelling, mass and lump, unspecified site [R19.00] Post-op Diagnosis: R19.00 - Intra-abdominal and pelvic swelling, mass and lump, unspecified site [ICD-10-CM] 02/07/2024 12:47 PM [facility] Gross Description A(2). Omentum, Omentum Biopsy: The specimen is received in formalin labeled with the patient's name, medical record number and other identifying information and designated omentum biopsy. It consists of a 5.9 cm aggregate of [id number], ragged adipose tissue. Sectioning reveals huff-yellow, lobulated [...] component of this testing was completed at [facility] 02/07/2024 12:47 PM CDT LABORATORY Case Images 02/07/2024 12:47 PM CDT LABORATORY Biopsy OMENTUM STRUCTURE / Unknown 01/22/2024 2:18 PM CDT 01/22/2024 2:54 PM CDT Helen Escalera MD [facility] LABORATORY [facility] Acute Care Lab [address] 1st floor, [address] [place] [address], [facility] [phone] * (ABNORMAL) Cytology, non-gynecologic (01/22/2024 2:09 PM CDT) Final Diagnosis Specimen A: Peritoneal fluid, paracentesis: Interpretation: Atypical. See comment. Other Findings: Abundant population of lymphoid elements. Adequacy: Satisfactory for evaluation. 01/25/2024 2:10 PM CDT LABORATORY Comment The findings should be correlated with the surgical pathology specimen [id number]. 01/25/2024 2:10 PM CDT LABORATORY Clinical Information [...] component of this testing was completed at [facility] 01/25/2024 2:10 PM CDT SPECIALTY LABS [place] ABDOMEN / Unknown 01/22/2024 2:09 PM CDT 01/22/2024 2:53 PM CDT Helen Escalera MD LAB - [place] [facility] LABORATORY [facility] Acute Care Lab [address] Lab (1st floor, no room number) [place] [address], [facility] Specialty Lab [address], [address] [place] [address], [facility] * Red Cell Antigen Typing Non ABO: (01/22/2024 12:15 PM CDT) Pathologist [facility] Fyb Antigen Type Negative 01/22/2024 4:21 PM CDT BLOOD BANK SPECIMEN EXPIRATION DATE [id number] 01/22/2024 4:21 PM CDT BLOOD BANK Blood STRUCTURE OF RIGHT HAND / Unknown Venipuncture / Unknown 01/22/2024 12:15 PM CDT 01/22/2024 12:21 PM CDT Helen Escalera MD LAB - BLOOD BANK TE ST ORDER BLOOD BANK [address] [place] [address], [facility] * Antibody identification (01/22/2024 12:15 PM CDT) Pathologist [facility] Antibody Identification Anti-Wallace b (Fyb) 01/22/2024 1:34 PM CDT BLOOD BANK SPECIMEN EXPIRATION DATE [id number] 01/22/2024 1:34 PM CDT BLOOD BANK Blood STRUCTURE OF RIGHT HAND / Unknown Venipuncture / Unknown 01/22/2024 12:15 PM CDT 01/22/2024 12:21 PM CDT Helen Escalera MD LAB - BLOOD BANK TE ORDER BLOOD BANK [address] [place] [address], [facility] * (ABNORMAL) Adult Type and Screen (01/22/2024 12:15 PM CDT) Pathologist [facility] ABO/RH(D) A POS 01/22/2024 11:54 AM CDT BLOOD BANK Antibody Screen Positive(A) Negative 01/22/2024 11:54 AM CDT BLOOD BANK SPECIMEN EXPIRATION DATE [id number] 01/22/2024 11:54 AM CDT BLOOD BANK Blood STRUCTURE OF RIGHT HAND / Unknown Venipuncture / Unknown 01/22/2024 12:15 PM CDT 01/22/2024 12:21 PM CDT Helen Escalera MD LAB - BLOOD BANK TE ORDER Performing Organization Address City/[facility]/ZIP Co de Phone Number BLOOD BANK [address] [place] [address], [facility] * (ABNORMAL) Hemoglobin (01/22/2024 12:15 PM CDT) Hemoglobin 10.3(L) 11.7 - 15.7 g/dL 01/22/2024 12:25 PM CDT LABORATORY Blood STRUCTURE OF RIGHT HAND / Unknown Venipuncture / Unknown 01/22/2024 12:15 PM CDT 01/22/2024 12:21 PM CDT Helen Escalera MD LAB - BLOOD ORDERAB LES LABORATORY [facility] Acute Care Lab [address] 1st floor, [address] [place] [address], [facility] [phone] documented in this encounter Visit Diagnoses Diagnosis [...] 1153, For 1 dose, Verify order with Sequins Spooler provider prior to Administering. High concentration heparin. [...] 1153, For 1 dose, Verify order with Sequins Spooler provider prior to Administering. High concentration heparin. [...] ($New Bag - Provider: Kenzie Jacinto APRN TECHNICAL SME)1456 (Anesthesia Volume Adjustment - Provider: Kenzie Jacinto APRN TECHNICAL SME) PRN Medication Order 01/20/2024 01/21/2024 01/22/2024 acetaminophen [...] documented as of this encounter Care Teams Acid Wash Operator Relationship Specialty Start Date End Date Zena Yuan MD [address] [place] [address] PCP - General Family Medicine 01/11/24 documented as of this encounter
--- OUTSIDE RECORDS SUMMARY | 2024-04-23 14:13 | XMS_ITS | Encounter Summary ---
Author Organization [facility] Address [address] [place] [address] Care Team Providers Care Financial Professional Name Role Phone Zena Yuan MD Primary Care Provider [phone] Reason for Visit * Auth/Cert Specialty Diagnoses / Procedures Referred By Contac t Referred To Contact Surgery Diagnoses Intra-abdominal and pelvic swelling, mass and lump, unspecified site Intra-abdominal and pelvic swelling, mass and lump, unspecified site [R19.00] Procedures OR LAPAROSCOPY, SURGICAL, ABDOMEN, PERITONEUM & OMENTUM; DX W/ OR W/O SPECIMEN(S) DIAGNOSTIC LAPAROSCOPY, ABDOMINAL BIOPSIES Periop Services [address] [place] [address] Referral ID Status Reason Start Date Expiration Date Visits Re quested Visits Authorized [id number] 1 1 Encounter Details Date Type Department Care Team (Late st Contact Info) Description 01/22/2024 1:10 PM CDT - 01/22/2024 2:[address] [facility] PeriOP Services [address] [place] [address] Helen Escalera MD [facility] [facility] [address] [facility] [address] [place], [place] [address] DIAGNOSTIC LAPAROSCOPY, OMENTAL BIOPSIES, AND EVACUATION OF [...] about your procedure, call Dr. Escalera at [phone] documented in this encounter Medications at Time [...] patient is located in their home in [place], [place], and IDr. Escalera, am located in the [facility]. The visit started at 01:45 PM and completed at 02:05 PM. Total time spent on theday of service is 35 minutes including time spent reviewing records, telemedicine visit with the patient, preparing orders, and documentation. 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 Bar is a kiesha 83 [...] ER visit & subsequent hospital admission in [place], [place]. She has had a hysterectomy in [...] to drink Ensure. She normally donnelly in [place] on the [facility] [place], [place]. She also has a son and brother who live [place] that she is able to visit. Her brother recently . She lives in [place], [place] the remainder of the year. Oncology Treatment Summary: 01/03/2024: Presented to [place] ER for unintentional weight loss, fatigue, etc. CT chest/abdomen/pelvis w/ IV contrast noted diffuse adenopathy (likely metastatic), omental carcinomatosis, peritoneal nodularity with thickening and mild enhancement, mild to moderate pelvic ascites. 01/10/2024: Tumor markers with Ca-125 = 1068 (elevated), CEA = 0.9 (normal) & Ca 19-9 = 8 (normal). 01/15/2024: IR biopsy requested. 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 Postmenopausal Allergies# NKA Medications: Miscellaneous Drug 1 All medications are currently on hold per patient 01/16 Family History: No family history of cancers. Of note, her son-in-law is a colon Ca patient at [facility]. Social History: She is a never smoker. She denies any alcohol use. She lives alone in [facility] and has extended family for [...] to nature of video visit. Physical Exam (Driver Trainer Oncology): General: The remainder of the physical [...] ascites. Problems: Peritoneal carcinomatosis Assessment & Plan (Driver Trainer Oncology): 1. 83 yo postmenopausal female with [...] her response and her overall functional status. [facility] location is most convenient for her [...] present were apprised of the use of [employer] remote documentationservice and all parties consented to [...] Assistants (if any): Surgeon(s): Helen Escalera MD Analog Ic Design Architect: Guillermina Gutiérrez RN Relief Analog Ic Design Architect: Eneida Ortiz RN Scrub Person: Nora Arias [...] OR: Satisfactory Helen Escalera MD Gynecologic Oncology [place] Oncology [facility] * Op Note - Helen Escalera MD - 01/22/2024 1:52 PM CDT Gynecologic Oncology Operative Report DATE OF PROCEDURE: 01/22/2024 PATIENT NAME: Kendal Pelayo PATIENT PREOPERATIVE DIAGNOSIS: Peritoneal carcinomatosis, omental carcinomatosis, elevated Ca-125 POSTOPERATIVE DIAGNOSIS: Same PROCEDURES: Procedure(s): DIAGNOSTIC LAPAROSCOPY, OMENTAL BIOPSIES, AND EVACUATION OF ASCITES SURGEON: Helen Escalera MD TELECOMMUNICATIONS TECHNICIAN: There were no qualified assistants available [...] ER visit & subsequent hospital admission in [place], [place]. She has had a hysterectomy in [...] Ensure. Oncology Treatment Summary: 01/03/2024: Presented to [place] ER for unintentional weight loss, fatigue, etc. CT chest/abdomen/pelvis w/ IV contrast noted diffuse adenopathy (likely metastatic), omental carcinomatosis, peritoneal nodularity with thickening and mild enhancement, mild to moderate pelvic ascites. 01/10/2024: Tumor markers with Ca-125 = 1068 (elevated), CEA = 0.9 (normal) & Ca 19-9 = 8 (normal). 01/15/2024: IR biopsy requested. Patient presented to [facility] & did not feel there was [...] entire procedure. Helen Escalera MD Gynecologic Oncology [place] [facility] 01/22/2024 documented in this encounter Plan of [...] Case Report Surgical Pathology Report ? Case: [id number] ? Authorizing Provider: ??Helen Escalera MD ? Collected: ? 01/22/2024 02:18 PM ? Ordering Location: ? [facility] ?Received: ?01/22/2024 02:54 PM ? [facility] Main OR ? Pathologist: ? Candelaria Powers, ? MD ? Specimen: ?Omentum, Omentum Biopsy ? 02/07/2024 12:[address] [facility] Addendum An addendum is issued, [...] a grade 1-2 process. 02/07/2024 12:[address] [facility] Addendum electronically signed by Candelaria Powers MD on 02/07/2024 at 12:47 PM Final Diagnosis Omentum, biopsy -Follicular lymphoma, classical pattern 02/07/2024 12:[address] [facility] Comment The unexpected finding of a lymphoid malignancy has been relayed to Dr. Escalera via her nurse Sherly on case sign out. 02/07/2024 12:[address] [facility] Clinical Information Procedure: DIAGNOSTIC LAPAROSCOPY, OMENTAL BIOPSIES, AND EVACUATION OF ASCITES Pre-op Diagnosis: Intra-abdominal and pelvic swelling, mass and lump, unspecified site [R19.00] Post-op Diagnosis: R19.00 - Intra-abdominal and pelvic swelling, mass and lump, unspecified site [ICD-10-CM] 02/07/2024 12:[address] [facility] Gross Description A(2). Omentum, Omentum Biopsy: The specimen is received in formalin labeled with the patient's name, medical record number and other identifying information and designated omentum biopsy. It consists of a 5.9 cm aggregate of [id number], ragged adipose tissue. Sectioning reveals huff-yellow, lobulated cut surfaces. No definitive tumor is identified. Submitted entirely in 3 cassettes. (Rylee Sonalkamla)01/22/2024 2:59 PM 02/07/2024 12:47 PM CDT LABORATORY [...] component of this testing was completed at [facility] 02/07/2024 12:47 PM CDT LABORATORY Case Images 02/07/2024 12:47 PM CDT LABORATORY Biopsy OMENTUM STRUCTURE / Unknown 01/22/2024 2:18 PM CDT 01/22/2024 2:54 PM CDT Helen [facility]TER - [facility] LABORATORY [facility] Acute Care Lab [address] 1st floor, [address] [place] [address], [facility] [phone] * (ABNORMAL) Cytology, non-gynecologic (01/22/2024 2:09 PM CDT) Final Diagnosis Specimen A: Peritoneal fluid, paracentesis: Interpretation: Atypical. See comment. Other Findings: Abundant population of lymphoid elements. Adequacy: Satisfactory for evaluation. 01/25/2024 2:10 PM CDT LABORATORY Comment The findings should be correlated with the surgical pathology specimen [id number]. 01/25/2024 2:10 PM CDT LABORATORY Clinical Information [...] component of this testing was completed at [facility] 01/25/2024 2:10 PM CDT SPECIALTY LABS [place] ABDOMEN / Unknown 01/22/2024 2:09 PM CDT 01/22/2024 2:53 PM CDT Helen [facility] LABORATORY [facility] Acute Care Lab [address] [facility] Lab (1st floor, no room number) [place] [address], [facility] Specialty Lab [address] [facility], [address] [place] [address] * Red Cell Antigen Typing Non ABO: (01/22/2024 12:15 PM CDT) Fyb Antigen Type Negative 01/22/2024 4:21 PM CDT BLOOD BANK SPECIMEN EXPIRATION DATE [id number] 01/22/2024 4:21 PM CDT BLOOD BANK Blood STRUCTURE OF RIGHT HAND / Unknown Venipuncture / Unknown 01/22/2024 12:15 PM CDT 01/22/2024 12:21 PM CDT Helen Escalera MD LAB - BLOOD BANK TE ORDER Performing Organization Address City/[facility]/ZIP Co de Phone Number BLOOD BANK [address] [place] [address], [facility] * Antibody identification (01/22/2024 12:15 PM CDT) Antibody Identification Anti-Wallace b (Fyb) 01/22/2024 1:34 PM CDT BLOOD BANK SPECIMEN EXPIRATION DATE [id number] 01/22/2024 1:34 PM CDT BLOOD BANK Blood STRUCTURE OF RIGHT HAND / Unknown Venipuncture / Unknown 01/22/2024 12:15 PM CDT 01/22/2024 12:21 PM CDT Helen Escalera MD LAB - BLOOD BANK [facility] Performing Organization Address [facility] Co de Phone Number BLOOD BANK [address] [place] [address], [facility] * (ABNORMAL) Adult Type and Screen (01/22/2024 12:15 PM CDT) ABO/RH(D) A POS 01/22/2024 11:54 AM CDT BLOOD BANK Antibody Screen Positive(A) Negative 01/22/2024 11:54 AM CDT BLOOD BANK SPECIMEN EXPIRATION DATE [id number] 01/22/2024 11:54 AM CDT BLOOD BANK Blood STRUCTURE OF RIGHT HAND / Unknown Venipuncture / Unknown 01/22/2024 12:15 PM CDT 01/22/2024 12:21 PM CDT Helen Escalera MD LAB - BLOOD BANK [facility] Performing Organization Address City/[facility]/ZIP Co de Phone Number BLOOD BANK [address] [place] [address], [facility] * (ABNORMAL) Hemoglobin (01/22/2024 12:15 PM CDT) Hemoglobin 10.3(L) 11.7 - 15.7 g/dL 01/22/2024 12:25 PM CDT LABORATORY Blood STRUCTURE OF RIGHT HAND / Unknown Venipuncture / Unknown 01/22/2024 12:15 PM CDT 01/22/2024 12:21 PM CDT Helen Escalera MD LAB - BLOOD ORDERAB LES LABORATORY [facility] [address] 1st floor, [address] [place] [address], [facility] [phone] documented in this encounter Visit Diagnoses Diagnosis [...] 1153, For 1 dose, Verify order with Boot And Shoe Repairman provider prior to Administering. High concentration heparin. [...] 1153, For 1 dose, Verify order with Boot And Shoe Repairman provider prior to Administering. High concentration heparin. [...] APRN CRNA)1456 (Anesthesia Volume Adjustment - Provider: Crystal Jacinto, FARM HAND GRAIN INSPECTOR) PRN Medication Order 01/20/2024 01/21/2024 01/22/2024 acetaminophen [...] documented as of this encounter Care Teams Financial Professional Relationship Specialty Start Date End Date Zena Yuan MD [address] [place] [address] PCP - General Family Medicine 01/11/24 documented as of this encounter
--- OUTSIDE RECORDS SUMMARY | 2024-04-23 14:13 | XMS_ITS | Encounter Summary ---
Author Organization [facility] Address [address] [place] [address] Care Team Providers Care Ergonomics Technician Name Role Phone Zena Yuan MD Primary Care Provider Encounter Details Date Type Department Care Team (Late st Contact Info) Description 01/11/[address] [facility] Imaging [address] [place] [address] Keila Liu RN Social History Tobacco Use Types Packs/Day [...] on filedocumented in this encounter Care Teams Ergonomics Technician Relationship Specialty Start Date End [place] [address] PCP - General Family Medicine 01/11/24 documented as of this encounter
--- NOTE | 2024-04-23 15:00 | CRLHL7_ITS ---
For Patients: As a result of the Century Cures Act, medical imaging exams and procedure reports are released immediately into your electronic medical record. You may view this report before your referring provider. If you have questions, please contact your health care provider. INDICATION: Left lower extremity edema. COMPARISON: None. TECHNIQUE: A compression venous ultrasound exam was performed of the left lower extremity using osman-scale imaging, color Doppler, and spectral Doppler analysis. FINDINGS: Sonographic imaging of the left lower extremity demonstrates normal compressibility and color Doppler venous blood flow within the common femoral, femoral, deep femoral, and proximal greater saphenous veins. At a lower level the popliteal, peroneal, and posterior tibial veins also show normal compressibility and color Doppler venous blood flow. Limited imaging of the contralateral groin demonstrates a normal spectral waveform and color Doppler venous blood flow within the right common femoral vein. IMPRESSION: Negative for acute DVT in the left lower extremity. Dictated by Jyoti Munson MD @ 04/24/2024 2:30:27 AM (Electronically Signed)
== END 2024-04-23 14:09 | disposition home or self-care (01) ==
LOC: US 14:09
PROVIDERS: PCP Family Medicine; Visit Provider Nurse Practitioner Adult Health
DX: R60.9 Edema, unspecified (principal); C82.18 Follicular lymphoma grade II, lymph nodes of multiple sites; C79.82 Secondary malignant neoplasm of genital organs
CPT/HCPCS: 93971

== ENCOUNTER 2024-05-16 15:39 | Outpatient (CLI) | payer MEDICARE, OTHER, SELFPAY ==
--- OUTSIDE RECORDS SUMMARY | 2024-05-16 15:43 | XMS_ITS | Referral Summary ---
Author Organization [facility] Address [address] [place] [address] Care Team Providers Care Rough Rice Grader Name Role Phone Zena Yuan MD Primary Care Provider Encounters Date Type Department Care Team Description 04/04/2024 7:42 AM CDT - 04/04/2024 10:51 AM CDT Hospital Encounter [facility] Imaging [address] [place] [address] Juliana Sher DO Nygard, Adam, MD Follicular lymphoma grade II of lymph nodes of multiple sites (H) Discharge Disposition: Home or Self Care 03/29/2024 Telephone [facility] Interventional Radiology [address] [place] [phone] Juanito Hamm RN 02/22/2024 10:14 PM CDT - 02/29/2024 12:13 PM CDT Hospital Encounter [facility] 88 Oncology [address] [place] [phone] Mathew Chen MD Ward, MD Joseph Roberts, Margarita Nath MD Constipation, unspecified constipation type (Primary Dx); Tumor lysis syndrome Discharge Disposition: Home-Health Care Svc from Last 3 Months Allergies Active Allergy [...] Camille Torres Medical Devices Implanted Type Area Airline Pilot Device Identifier Shelf Expiration Date Model / Serial / Lot Port-04/04/2024 Implanted:Qty: 1 on 04/04/2024 by Uche Douglas MD Port Right: Chest Wall [id number] 01/15/2027 / / [id number] Procedures Procedure Name Priority Date/Time Associated Diagnosis [...] - HIM SCAN 02/21/2024 12:00 AM CDT from Last 3 Months Results * IR Chest Port Placement > 5 Yrs of Age (04/04/2024 9:38 AM CDT) Anatomical Region Laterality Modality Chest Radio Fluoroscop y, Radio Fluoroscopy Impressions 04/04/2024 10:14 AM CDT IMPRESSION: Fluoroscopic and ultrasound guided placement of right internal jugular Power Port. UCHE DOULGAS MD Narrative 04/04/2024 10:14 AM CDT [facility] EXAM: IMPLANTABLE RIGHT INTERNAL JUGULAR CHEST [...] observer. The physician spent 50 minutes of gtxp-[id number] moderate sedation time with the patient. ADDITIONAL [...] Procedure Note Uche Douglas MD - 04/04/2024 [facility] EXAM: IMPLANTABLE RIGHT INTERNAL JUGULAR CHEST [...] observer. The physician spent 50 minutes of [id number] moderate sedation time with the patient. ADDITIONAL [...] AM CDT 04/04/2024 8:03 AM CDT Priti Selam [facility] SENIOR ENERGY MARKET COORDINATOR AUTOMATION SPECIALIST LAB - BLOOD ORDERABLES LABORATORY [facility] Lab [address] [facility] Lab (1st floor, no room number) [place] [address], [facility] * Uric acid (02/29/2024 8:23 AM CDT) Only the most recent of2 resultswithin the time period is included. Uric Acid 3.5 2.4 - 5.7 mg/dL 02/29/2024 9:16 AM CDT LABORATORY Blood STRUCTURE OF RIGHT UPPER LIMB / Unknown Venipuncture / Unknown 02/29/2024 8:23 AM CDT 02/29/2024 8:32 AM CDT Margarita Ruiz MD LAB - BLOOD ORDER JENNIFER LABORATORY [facility] Acute Care Lab [address] 1st floor, [address] [place] [address], [facility] [phone] * Magnesium (02/29/2024 8:23 AM CDT) Only the most recent of9 resultswithin the time period is included. Magnesium 1.8 1.7 - 2.3 mg/dL 02/29/2024 9:16 AM CDT LABORATORY Blood STRUCTURE OF RIGHT UPPER LIMB / Unknown Venipuncture / Unknown 02/29/2024 8:23 AM CDT 02/29/2024 8:32 AM CDT Margarita Ruiz MD LAB - BLOOD ORDER JENNIFER LABORATORY [facility] Lab [address] 1st floor, [address] [place] [address], [facility] [phone] * (ABNORMAL) Ionized Calcium (02/29/2024 8:23 AM CDT) Only the most recent of4 resultswithin the time period is included. Calcium Ionized Whole Blood 6.8(H) 4.4 - 5.2 mg/dL 02/29/2024 8:36 AM CDT LABORATORY Blood STRUCTURE OF RIGHT UPPER LIMB / Unknown Venipuncture / Unknown 02/29/2024 8:23 AM CDT 02/29/2024 8:32 AM CDT Margarita Ruiz MD LAB - BLOOD ORDER JENNIFER LABORATORY [facility] Lab [address] 1st floor, [address] [place] [address], [facility] [phone] * (ABNORMAL) Basic metabolic panel (02/29/2024 8:23 [...] 3.4 - 5.3 mmol/L 02/29/2024 9:17 AM T LABORATORY Chloride 99 98 - 107 mmol/L 02/29/2024 9:17 AM CDT LABORATORY Carbon Dioxide (CO2) 27 22 - 29 mmol/L 02/29/2024 9:17 AM CDT LABORATORY Anion Gap 11 7 - 15 mmol/L 02/29/2024 9:17 AM T LABORATORY Urea Nitrogen 27.6(H) 8.0 - 23.0 mg/dL 02/29/2024 9:17 AM T LABORATORY Creatinine 1.89(H) 0.51 - 0.95 mg/dL 02/29/2024 9:17 AM T LABORATORY GFR Estimate 26(L) >60 mL/min/1. 73m2 02/29/2024 9:17 AM CDT LABORATORY Calcium 12.8(H) 8.8 - 10.2 mg/dL 02/29/2024 9:17 AM T LABORATORY Glucose 117(H) 70 - 99 mg/dL 02/29/2024 9:17 AM T LABORATORY Blood STRUCTURE OF RIGHT UPPER LIMB / Unknown Venipuncture / Unknown 02/29/2024 8:23 AM CDT 02/29/2024 8:32 AM CDT Margarita Ruiz MD LAB - BLOOD ORDER JENNIFER LABORATORY [facility] Acute Care Lab [address] 1st floor, [address] [place] [address], [facility] [phone] * Phosphorus (02/27/2024 9:31 AM CDT) Only the most recent of4 resultswithin the time period is included. [facility] Phosphorus 3.6 2.5 - 4.5 mg/dL 02/27/2024 7:52 PM CDT LABORATORY Blood STRUCTURE OF RIGHT UPPER LIMB / Unknown Venipuncture / Unknown 02/27/2024 9:31 AM CDT 02/27/2024 9:39 AM CDT Margarita Ruiz MD LAB - BLOOD ORDER JENNIFER LABORATORY [facility] Acute Care Lab [address] 1st floor, [address] [place] [address], [facility] [phone] * XR Abdomen 1 View (02/26/2024 1:48 [...] MD LAB - BLOOD ORDERABL ES LABORATORY [facility] Lab [address] 1st floor, [address] [place] [address], [facility] [phone] * Lactate Dehydrogenase (02/26/2024 4:52 AM CDT) Only the most recent of3 resultswithin the time period is included. Lactate Dehydrogenase 207 0 - 250 U/L 02/26/2024 5:17 AM CDT LABORATORY Blood STRUCTURE OF RIGHT HAND / Unknown Venipuncture / Unknown 02/26/2024 4:52 AM CDT 02/26/2024 4:57 AM CDT Margarita Ruiz MD LAB - BLOOD ORDER JENNIFER Performing Organization Address City/[facility]/ZIP Co de Phone Number [facility] Lab [address] 1st floor, [address] [place] [address], [facility] [phone] * Potassium (02/26/2024 4:52 AM CDT) Only the most recent of3 resultswithin the time period is included. Potassium 4.1 3.4 - 5.3 mmol/L 02/26/2024 5:17 AM CDT LABORATORY Blood STRUCTURE OF RIGHT HAND / Unknown Venipuncture / Unknown 02/26/2024 4:52 AM CDT 02/26/2024 4:57 AM CDT Margarita Ruiz MD LAB - BLOOD ORDER JENNIFER LABORATORY [facility] Acute Care Lab [address] 1st floor, [address] [place] [address], [facility] [phone] * XR Chest 2 Views (02/25/2024 3:17 [...] CDT EXAM: XR CHEST 2 VIEWS LOCATION: [facility] DATE: 02/25/2024 INDICATION: Shortness of breath. Hypercalcemia with fluid, but also got Rasburicase recently. COMPARISON: CT chest, abdomen and pelvis with IV contrast 01/03/2024. Procedure Note Antoinette Bobby MD - 02/25/2024 EXAM: XR CHEST 2 VIEWS LOCATION: [facility] DATE: 02/25/2024 INDICATION: Shortness of breath. [...] 3.4 - 5.3 mmol/L 02/23/2024 5:17 AM [facility] LABORATORY Carbon Dioxide (CO2) 25 22 - 29 mmol/L 02/23/2024 5:17 AM [facility] LABORATORY Anion Gap 11 7 - 15 mmol/L 02/23/2024 5:17 AM [facility] LABORATORY Urea Nitrogen 31.3(H) 8.0 - 23.0 mg/dL 02/23/2024 5:17 AM [facility] LABORATORY Creatinine 1.65(H) 0.51 - 0.95 mg/dL 02/23/2024 5:17 AM [facility] LABORATORY GFR Estimate 30(L) >60 mL/min/1. 73m2 02/23/2024 5:17 AM [facility] LABORATORY Calcium 12.7(H) 8.8 - 10.2 mg/dL 02/23/2024 5:17 AM [facility] LABORATORY Chloride 101 98 - 107 mmol/L 02/23/2024 5:17 AM [facility] LABORATORY Glucose 124(H) 70 - 99 mg/dL 02/23/2024 5:17 AM [facility] LABORATORY Alkaline Phosphatase 83 40 - 150 U/L 02/23/2024 5:17 AM [facility] LABORATORY AST 14 0 - 45 U/L 02/23/2024 5:17 AM [facility] LABORATORY Comment:Reference intervals for this test were updated on 02/27/2023 to more accurately reflect our healthy population. There may be differences in the flagging of prior results with similar values performed with this method. Interpretation of those prior results can be made in the context of the updated reference intervals. ALT 6 0 - 50 U/L 02/23/2024 5:17 AM [facility] LABORATORY Comment:Reference intervals for this test [...] MD LAB - BLOOD ORDERABL ES LABORATORY [facility] Lab [address] 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
--- OUTSIDE RECORDS SUMMARY | 2024-05-16 15:43 | XMS_ITS ---
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 Past Plans No past plan information found. Radiation Treatments * No radiation treatments are documented for this patient in [facility]. Treatments may have been administered in another system. Lifetime Dose Tracking * Chemical Lifetime Dose Automatic Entry Manual Entr y Total Air Kerma 5 mGy 5 mGy 0 mGy Fluoro Time 1 Minutes 1 Minutes 0 Minutes
--- OUTSIDE RECORDS SUMMARY | 2024-05-16 15:43 | XMS_ITS | Clinical Summary ---
Author Organization [facility] Address [address] [place] [address] Care Team Providers Care Incising Machine Operator Name Role Phone Zena Yuan [...] - 04/04/2024 10:51 AM CDT Hospital Encounter [facility] Imaging [address] [place] [phone] Juliana Sher, Uche Burger MD Follicular lymphoma grade II of lymph nodes of multiple sites (H) Discharge Disposition: Home or Self Care 03/29/[address] [facility] Interventional Radiology [address] [place] [phone] Juanito Hamm RN 02/22/2024 10:14 PM CDT - 02/29/2024 12:13 PM CDT Hospital Encounter [facility] 88 Oncology [address] [place] [phone] Mathew Chen MD Whitehead, MD [facility], Margarita Nath MD Constipation, unspecified constipation type (Primary Dx); Tumor lysis syndrome Discharge Disposition: Home-Health Care Svc from Last 3 Months Social History Tobacco [...] 1940 DEXA 1939 LIPID 1939 RSV VACCINE (1 - 1-dose 60+ series) 1999 FALL [...] Camille Torres Medical Devices Implanted Type Area Fiberglass Autobody Repairer Device Identifier Shelf Expiration Date Model / Serial / Lot Port-04/04/2024 Implanted:Qty: 1 on 04/04/2024 by Uche Douglas MD Port Right: Chest Wall [id number] 01/15/2027 / / [id number] Procedures Procedure Name Priority Date/Time Associated Diagnosis [...] DOUGLAS MD Narrative 04/04/2024 10:14 AM CDT [facility] EXAM: IMPLANTABLE RIGHT INTERNAL JUGULAR CHEST [...] observer. The physician spent 50 minutes of nazo-ji-usez moderate sedation time with the patient. ADDITIONAL [...] Procedure Note Uche Douglas MD - 04/04/2024 [facility] EXAM: IMPLANTABLE RIGHT INTERNAL JUGULAR CHEST [...] observer. The physician spent 50 minutes of ciwa-wz-bpmi moderate sedation time with the patient. ADDITIONAL [...] AM CDT 04/04/2024 8:03 AM CDT [facility] TAKER OUT PER DIEM INTERPRETER LAB - BLOOD ORDERABLES LABORATORY [facility] Acute Care Lab [address] Lab (1st floor, no room number) [place] [address], [facility] * Uric acid (02/29/2024 8:23 AM CDT) Only the most recent of2 resultswithin the time period is included. Uric Acid 3.5 2.4 - 5.7 mg/dL 02/29/2024 9:16 AM CDT LABORATORY Blood STRUCTURE OF RIGHT UPPER LIMB / Unknown Venipuncture / Unknown 02/29/2024 8:23 AM CDT 02/29/2024 8:32 AM CDT Margarita Ruiz MD LAB - BLOOD ORDER JENNIFER LABORATORY [facility] Acute Care Lab [address] 1st floor, Room [address] [place] [address], [facility] [phone] * Magnesium (02/29/2024 8:23 AM CDT) Only the most recent of9 resultswithin the time period is included. Magnesium 1.8 1.7 - 2.3 mg/dL 02/29/2024 9:16 AM CDT LABORATORY Blood STRUCTURE OF RIGHT UPPER LIMB / Unknown Venipuncture / Unknown 02/29/2024 8:23 AM CDT 02/29/2024 8:32 AM CDT Margarita Ruiz MD LAB - BLOOD ORDER JENNIFER LABORATORY [facility] Lab [address] 1st floor, Room [address] [place] [address], [facility] [phone] * (ABNORMAL) Ionized Calcium (02/29/2024 8:23 AM CDT) Only the most recent of4 resultswithin the time period is included. [facility] Calcium Ionized Whole Blood 6.8(H) 4.4 - 5.2 mg/dL 02/29/2024 8:36 AM CDT LABORATORY Blood STRUCTURE OF RIGHT UPPER LIMB / Unknown Venipuncture / Unknown 02/29/2024 8:23 AM CDT 02/29/2024 8:32 AM CDT Margarita Ruiz MD LAB - BLOOD ORDER JENNIFER LABORATORY [facility] Lab [address] 1st floor, [address] [place] [address], [facility] [phone] * (ABNORMAL) Basic metabolic panel (02/29/2024 8:23 AM CDT) Only the most recent of7 resultswithin the time period is included. [facility] Sodium 137 135 - 145 mmol/L 02/29/2024 9:[address] [facility] LABORATORY Comment:Reference intervals for this test were [...] AM CDT 02/29/2024 8:32 AM CDT Margarita uRiz MD LAB - BLOOD ORDER JENNIFER [facility] Lab [address] 1st floor, [place] [address], [place] [phone] * Phosphorus (02/27/2024 9:31 AM CDT) Only the most recent of4 resultswithin the time period is included. [facility] Phosphorus 3.6 2.5 - 4.5 mg/dL 02/27/2024 7:52 PM CDT LABORATORY Blood STRUCTURE OF RIGHT UPPER LIMB / Unknown Venipuncture / Unknown 02/27/2024 9:31 AM CDT 02/27/2024 9:39 AM CDT Margarita Ruiz MD LAB - BLOOD ORDER JENNIFER [facility] Lab [address] 1st floor, [address] [place] [address], [place] [phone] * XR Abdomen 1 View (02/26/2024 1:48 [...] MD LAB - BLOOD ORDERABL ES LABORATORY [facility] Acute Care Lab [address] 1st floor, [address] [place] [address], [place] [phone] * Lactate Dehydrogenase (02/26/2024 4:52 AM CDT) Only the most recent of3 resultswithin the time period is included. Lactate Dehydrogenase 207 0 - 250 U/L 02/26/2024 5:17 AM CDT LABORATORY Blood STRUCTURE OF RIGHT HAND / Unknown Venipuncture / Unknown 02/26/2024 4:52 AM CDT 02/26/2024 4:57 AM CDT Margarita Ruiz MD LAB - BLOOD ORDER JENNIFER LABORATORY [facility] Lab [address] 1st floor, [address] [place] [address], [facility] [phone] * Potassium (02/26/2024 4:52 AM CDT) Only the most recent of3 resultswithin the time period is included. Potassium 4.1 3.4 - 5.3 mmol/L 02/26/2024 5:17 AM CDT LABORATORY Blood STRUCTURE OF RIGHT HAND / Unknown Venipuncture / Unknown 02/26/2024 4:52 AM CDT 02/26/2024 4:57 AM CDT Margarita Ruiz MD LAB - BLOOD ORDER JENNIFER Performing Organization Address City/[facility] Co de Phone Number [facility] Lab [address] 1st floor, [place] [address], [facility] [phone] * XR Chest 2 Views (02/25/2024 3:17 [...] CDT EXAM: XR CHEST 2 VIEWS LOCATION: [facility] DATE: 02/25/2024 INDICATION: Shortness of breath. Hypercalcemia with fluid, but also got Rasburicase recently. COMPARISON: CT chest, abdomen and pelvis with IV contrast 01/03/2024. Procedure Note Antoinette Bobby MD - 02/25/2024 EXAM: XR CHEST 2 VIEWS LOCATION: [facility] DATE: 02/25/2024 INDICATION: Shortness of [...] hardware, partially visualized, unchanged. Gallito Whitehead MD [facility] NG ORDERABLES * (ABNORMAL) Comprehensive metabolic panel (02/23/2024 4:36 AM CDT) [facility] Sodium 137 135 - 145 mmol/L 02/23/2024 [...] 0.51 - 0.95 mg/dL 02/23/2024 5:[address] [facility] GFR Estimate 30(L) >60 mL/min/1. 73m2 02/23/2024 5:17 AM [facility] Calcium 12.7(H) 8.8 - 10.2 mg/dL 02/23/2024 5:[address] [facility] Chloride 101 98 - 107 mmol/L 02/23/2024 5:17 [facility] Glucose 124(H) 70 - 99 mg/dL 02/23/2024 5:17 AM [facility] Alkaline Phosphatase 83 40 - 150 U/L 02/23/2024 5:17 [facility] AST 14 0 - 45 U/L 02/23/2024 5:[address] [facility] Comment:Reference intervals for this test were updated on 02/27/2023 to more accurately reflect our healthy population. There may be differences in the flagging of prior results with similar values performed with this method. Interpretation of those prior results can be made in the context of the updated reference intervals. ALT 6 0 - 50 U/L 02/23/2024 5:[address] [facility] Comment:Reference intervals for this test were updated on 02/27/2023 to more accurately reflect our healthy population. There may be differences in the flagging of prior results with similar values performed with this method. Interpretation of those prior results can be made in the context of the updated reference intervals. Protein Total 4.9(L) 6.4 - 8.3 g/dL 02/23/2024 5:[address] [facility] Albumin 3.0(L) 3.5 - 5.2 g/dL 02/23/2024 5:17 AM [facility] Bilirubin Total 0.2 <=1.2 mg/dL 02/23/2024 5:[address] [facility] Blood STRUCTURE OF RIGHT UPPER LIMB / Unknown Venipuncture / Unknown 02/23/2024 4:36 AM CDT 02/23/2024 4:53 AM CDT Gallito Whitehead MD LAB - BLOOD ORDERABL ES LABORATORY [facility] Acute Care Lab [address]st [address], [address] [place] [address], [facility] [phone] * Lab Result - HIM Scan (02/22/2024 [...] Advance Directives For more information, please contact: [phone] * No CPR- Do NOT Intubate (Latest Code Status on File) Date Activated Date Inactivated Comments 02/22/2024 11:35 PM 02/29/2024 2:15 PM NO basic or advanced life-sustaining interventions are performed Question Answer Comments Code status determined by: Discussion with jocelyne singh/ legal decision maker Care Teams Incising Machine Operator Relationship Specialty Start Date End Date Kwabena, Zena N, MD [address] [place], [place] [phone] PCP - General Family Medicine 01/11/24
--- OUTSIDE RECORDS SUMMARY | 2024-05-16 15:43 | XMS_ITS | Encounter Summary ---
Author Organization [place] Address [address] [place] [address] Care Team Providers Care Tanning Solution Maker Name Role Phone Zena Yuan MD Primary Care Provider [phone] Encounter Details Date Type Department Care Team (Late st Contact Info) Description 03/29/2024 Telephone [facility] Interventional Radiology [address] [facility] [place] [address] Juanito Hamm, RN Social [...] procedure in the Interventional Radiology Department at [facility]. Date: 04/04/24 Procedure: Chest Port Placement Address: [address] [address] Check into the Interventional Radiology Department at: [...] please call the Interventional Radiology team at [phone]. Thank you! Dario Warner Interventional Radiology Intake Nurse Coordinator [phone] documented in this encounter Plan of Treatment [...] documented as of this encounter Care Teams Tanning Solution Maker Relationship Specialty Start Date End Date Zena Yuan MD [address] [place] [address] PCP - General Family Medicine 01/11/24 documented as of this encounter
--- OUTSIDE RECORDS SUMMARY | 2024-05-16 15:43 | XMS_ITS | Encounter Summary ---
Author Organization [facility] Address [address] [place] [id number] Care Team Providers Care Certified Nurse Midwife Name Role Phone Zena Yuan MD Primary Care Provider [phone] Reason for Referral * Therapeutic Imaging/IR (Priority: 1-2 Weeks) - Closed Specialty Diagnoses / Procedures Referred By Contac t Referred To Contact Radiology. 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 (H) Procedures IR Chest Port Placement > 5 Yrs of Age IR Referral Fortunato Velarde MD [facility] [address] [facility] [address] [place] [address] Interventional Rad [address] [place] [address] Referral ID Status Reason Start Date Expiration Date Visits Re quested Visits Authorized [id number] Closed 03/27/2024 03/27/2025 1 1 Encounter Details Date Type Department Care Team (Late st Contact Info) Description 04/04/2024 7:42 AM CDT - 04/04/2024 10:51 AM CDT Hospital Encounter [facility] [address] [place] [address] Juliana Sher DO [facility] [address] [place] [address] Uche Douglas MD [facility] [address] [place] [address] Follicular lymphoma grade II of lymph nodes [...] Port Put In: Port Placement Discharge Instructions (Botswanan) documented in this encounter Medications at Time [...] procedural details. Provider name: Uche Douglas M.D. [employer] Efficient Aircraft Designer(s):None documented in this encounter Miscellaneous Notes * [...] DOUGLAS MD Narrative 04/04/2024 10:14 AM CDT [facility] EXAM: IMPLANTABLE RIGHT INTERNAL JUGULAR CHEST [...] observer. The physician spent 50 minutes of [id number] moderate sedation time with the patient. ADDITIONAL [...] Procedure Note Uche Douglas MD - 04/04/2024 [facility] EXAM: IMPLANTABLE RIGHT INTERNAL JUGULAR CHEST [...] observer. The physician spent 50 minutes of [id number] moderate sedation time with the patient. ADDITIONAL [...] CDT 04/04/2024 8:03 AM CDT [facility] REPRESENTATIVE [facility] - BLOOD ORDERABLES LABORATORY [facility] [address] [facility] (1st floor, no room number) [place] [address], [facility] documented in this encounter Visit [...] 2 MIN PRN, opioid reversal, Starting on Gwendloyn 04/04/24 at 0745, Administer intramuscular if an [...] documented as of this encounter Care Teams Certified Nurse Midwife Relationship Specialty Start Date End Date Zena Yuan MD [address] [place] [address] PCP - General Family Medicine 01/11/24 documented as of this encounter
--- OUTSIDE RECORDS SUMMARY | 2024-05-16 15:43 | XMS_ITS | Encounter Summary ---
Author Organization [facility] Address [address] [place] [address] Care Team Providers Care Waste Collection Driver Name Role Phone Alisha Yuan MD Primary Care Provider [phone] Reason for Referral * Home Health Therapies & Aides (Routine: Next available opening) - Pending Review Specialty Diagnoses / Procedures Referred By Wyatt t Referred To Contact Diagnoses Tumor lysis syndrome Margarita Ruiz MD [address] [place] [address] Referral ID Status Reason Start Date Expiration Date V isits Requested Visits Authorized [id number] Pending Review 02/29/2024 02/28/2025 1 1 Question [...] 02/29/2024 Provider to follow patient ALISHA YUAN [[id number]] Comments Your provider has ordered home health services. If you have not been contacted within 2 days of your discharge please call the selected Home Care agency listed on your Discharge document. If a Home Care agency is NOT listed, please call [phone]. Reason for Visit * Auth/Cert Specialty Diagnoses / Procedures Referred By Wyatt boucher Referred To Contact EMERGENCY MEDICINE Diagnoses Tumor lysis syndrome [facility] Emergency Dept [address] [place] [address] Referral ID Status Reason Start Date Expiration Date Visits Re quested Visits Authorized [id number] 1 1 Encounter Details Date Type Department Care Team (Latest Contact Info) Description 02/22/2024 10:14 PM CDT - 02/29/2024 12:13 PM CDT Hospital Encounter [place] [address] On[facility] [address] [place] [id number] Mathew Chen MD [address] [place] [id number] Gallito Whitehead MD [address] [place] [id number] Margarita Ruiz MD [address] [place], [place] [id number] Constipation, unspecified constipation type (Primary Dx); Tumor [...] Ruiz MD - 02/29/2024 9:54 AM CDT [facility] Hospitalist Discharge Summary Date of Admission: 02/22/2024 [...] 02/22/2024. She presents as a transfer from [facility] in the setting of tumor lysis syndrome [...] low, consider adjusting allopurinol order. Allopurinol discontinued. [place] [facility] consult requested Treated with IV fluids, [...] 2.1 this past week through outside records. Farley potentially secondary to both tumor lysis, dehydration, [...] minutes discharging this patient. Margarita Ruiz MD [place] [address] [place] [address], [address] [facility] [id number] Physical Exam Vital Signs: Temp: 97.5 ??F [...] Narrative EXAM: XR CHEST 2 VIEWS LOCATION: [facility] DATE: 02/25/2024 INDICATION: Shortness of breath. Hypercalcemia [...] Discharge Note Discharge Date: 02/29/2024 Discharge Disposition: [facility] Discharge Services: None Discharge DME: Walker Discharge [...] Information: Patient will be discharging today to [facility]. Laser Printing Operator faxed orders to Juliana RN at [phone]. Laser Printing Operator called Juliana on both her cell phone ([phone]) and her desk phone ([phone]) and left a message asking for a call back regarding discharge for today. Laser Printing Operator touched base with patients son James who states he is here and able to transport today. James states he has been in touch with Juliana as well about discharge for today. Laser Printing Operator updated bedside RN about discharge. Laser Printing Operator updated NST that we would need a [...] acid elevated at outside hospital, transferred to [facility] and received 6mg Rasbirucase - She received [...] Ruiz MD - 02/28/2024 4:24 PM CDT [facility] Medicine Progress Note - Hospitalist Service Date of Admission: 02/22/2024 Assessment & Plan Dipika Franco is a 83 year old female admitted on 02/22/2024. She presents as a transfer from [facility] in the setting of tumor lysis syndrome [...] low, consider adjusting allopurinol order. Allopurinol discontinued. [place] [facility] consult requested 1L NS bolus and [...] 2.1 this past week through outside records. Farley potentially secondary to both tumor lysis, dehydration, [...] pending labs Margarita Ruiz MD Hospitalist Service [facility] Securely message with [employer] (more info) Text page via [facility] Paging/Directory Interval History I am feeling [...] Miranda MD - 02/28/2024 2:44 PM CDT [place] [facility] Progress Note Primary Oncologist: Dr. Velarde Manzanola Assessment and Plan: Follicular lymphoma - Stage IV, grade 1-2 - Symptoms: Weight loss, night sweats, early satiety - Started Bendamustine Rituximab 02/19/24, did not receive Bendamustine day 2 due to severe hypercalcemia which prompted hospital admission - Uric acid elevated at outside hospital, transferred to [facility] and received 6mg Rasbirucase - She received [...] Ruiz MD - 02/27/2024 4:36 PM CDT [facility] Medicine Progress Note - Hospitalist Service Date of Admission: 02/22/2024 Assessment & Plan Dipika Franco is a 83 year old female admitted on 02/22/2024. She presents as a transfer from [facility] in the setting of tumor lysis syndrome [...] low, consider adjusting allopurinol order. Allopurinol discontinued. [place] [facility] consult requested 1L NS bolus and [...] 2.1 this past week through outside records. [place] potentially secondary to both tumor lysis, dehydration, [...] discharge tomorrow Margarita Ruiz MD Hospitalist Service [facility] Securely message with [employer] (more info) Text page via [employer] Paging/Directory Interval History I have had this [...] Oncology/Hematology Progress Note Primary Oncologist: Dr. Velarde Manzanola Assessment and Plan: Follicular lymphoma - Stage IV, grade 1-2 - Symptoms: Weight loss, night sweats, early satiety - Started Bendamustine Rituximab 02/19/24, did not receive Bendamustine day 2 due to severe hypercalcemia which prompted hospital admission - Uric acid elevated at outside hospital, transferred to [facility] and received 6mg Rasbirucase - She received [...] Weight 61.1 kg (adjusted) Estimated Energy Needs: 0006-7377 kcals (25-30 Kcal/Kg) Justification: maintenance Estimated Protein Needs: 73-92 grams protein (1.2-1.5 g pro/Kg) Justification: preservation of lean body mass Estimated Fluid Needs: 9399-0178 mL (1 mL/Kcal) NEW FINDINGS: General/Plan: pt [...] Discharge Note Discharge Date: 02/27/2024 Discharge Disposition: [facility] Discharge Services: None Discharge DME: [...] Information: Patient will be discharging today to [facility]. Laser Printing Operator spoke with CHRISTEN Andrews at the facility and orders will need to be faxed to [phone]. Patient will need to have Home PT/OT Orders so therapy can assess in the enhanced unit. They use [facility] in [place] for any medications that need to be filled for patient. Laser Printing Operator paged MD for orders as son is here and would be able to transport when available. Family in agreement with the plan for discharge. Addendum 1050: Laser Printing Operator talked with and they are not able to discharge today due to Calcium Levels going up. will round later today to update patient. Laser Printing Operator updated Bedside RN. Angelita Urias. BRITTANY Gr * Wu Spencer DO - 02/26/2024 3:32 PM CDT [place] [facility] Progress Note Assessment and Plan: Primary Oncologist: Shereen Belle Follicular lymphoma - Stage IV, grade 1-2 - Symptoms: Weight loss, night sweats, early satiety - Started Bendamustine Rituximab 02/19/24, did not receive Bendamustine day 2 due to severe hypercalcemia which prompted hospital admission - Uric acid elevated at outside hospital, transferred to [facility] and received 6mg Rasbirucase - She received [...] to follow her with you Wu Spencer, [place] [facility] [phone] (office) Interval History: Has less fatigue than [...] pay costs discussed: Not applicable Additional Information: Laser Printing Operator received information that the family would like [facility] and [facility] suites looked into for placement. Laser Printing Operator researched this and this is [facility], typewriter tester called and left a message with admissions to see if they would have any option to do a short termstay for TCU in their enhanced care unit area. Waiting on a call back. Addendum 1400: Laser Printing Operator received a call back from Ly at [facility]. Ly states that they do not have a TCU that is under Medicare. They have an enhanced care which people can enter for a short term stay, that is private pay and daily rate is $350-$450 a day. Addendum 1500: Laser Printing Operator spoke with patients son James. James states that they are needing a short term place where patient can still receive chemotherapy. James states that money is not an issue and they would like to get her placed at [facility]. James states he has been in touch with Zaynab over there and is ready whenever they can get patient in. Laser Printing Operator called and spoke with Zaynab( [phone]) that they would need a housing application filled out and an RN to RN phone visit done to make sure they can meet her needs. Zaynab will be in touch with James on doing the application for housing and then get back to on next steps. BRITTANY Telles * Margarita Ruiz MD - 02/26/2024 10:19 AM CDT [facility] Medicine Progress Note - Hospitalist Service Date of Admission: 02/22/2024 Assessment & Plan Dipika Franco is a 83 year old female admitted on 02/22/2024. She presents as a transfer from [facility] in the setting of tumor lysis syndrome [...] phosphorus, BMP, ionized calcium, LDH Cardiac telemetry [place] [facility] consulted, aware of patient from outside [...] 2.1 this past week through outside records. Far[place] potentially secondary to both tumor lysis, dehydration, [...] 2-4 Days Margarita Ruiz MD Hospitalist Service [facility] Securely message with [employer] (more info) Text page via [facility] Paging/Directory Interval History I am starting [...] Miranda MD - 02/25/2024 10:12 AM CDT [place] [facility] Progress Note Assessment and Plan: Primary Oncologist: Dr. Velarde Manzanola Follicular lymphoma - Stage IV, grade 1-2 - Symptoms: Weight loss, night sweats, early satiety - Started Bendamustine Rituximab 02/19/24, did not receive Bendamustine day 2 due to severe hypercalcemia which prompted hospital admission - Uric acid elevated at outside hospital, transferred to [facility] and received 6mg Rasbirucase - She received [...] She may wish to go to a snf instead of home - Continue allopurinol - renal function improving. Uric acid has normalized. Calcium level 12.6mg/dl 02/24/2024. Will continue to follow her with you Grant Miranda MD [place] [facility] [phone] (office) Interval History: Has had some worsening [...] Narrative EXAM: XR CHEST 2 VIEWS LOCATION: [facility] [place] DATE: 02/25/2024 INDICATION: Shortness of breath. Hypercalcemia [...] Ruiz MD - 02/25/2024 9:47 AM CDT [facility] Medicine Progress Note - Hospitalist Service Date of Admission: 02/22/2024 Assessment & Plan Dipika Franco is a 83 year old female admitted on 02/22/2024. She presents as a transfer from [facility] in the setting of tumor lysis syndrome [...] phosphorus, BMP, ionized calcium, LDH Cardiac telemetry [place] [facility] consulted, aware of patient from outside [...] 2.1 this past week through outside records. [place] potentially secondary to both tumor lysis, dehydration, [...] 2-4 Days Margarita Ruiz MD Hospitalist Service [facility] Securely message with [employer] (more info) Text page via [employer] Paging/Directory Interval History I am worn out. [...] Narrative EXAM: XR CHEST 2 VIEWS LOCATION: [facility] [place] DATE: 02/25/2024 INDICATION: Shortness of breath. Hypercalcemia [...] Miranda MD - 02/24/2024 11:25 AM CDT [place] [facility] Progress Note Assessment and Plan: Primary Oncologist: Dr. Velarde Manzanola Follicular lymphoma - Stage IV, grade 1-2 - Symptoms: Weight loss, night sweats, early satiety - Started Bendamustine Rituximab 02/19/24, did not receive Bendamustine day 2 due to severe hypercalcemia which prompted hospital admission - Uric acid elevated at outside hospital, transferred to [facility] and received 6mg Rasbirucase - She received [...] She may wish to go to a snf instead of home - Continue allopurinol - renal function improving. Uric acid has normalized. Calcium level 12.6mg/dl today. Continue IVF. Will continue to follow her with you Grant Miranda MD [place] [facility] [phone] (office) Interval History: Denied new complaints. Reported [...] Ruiz MD - 02/24/2024 9:02 AM CDT [facility] Medicine Progress Note - Hospitalist Service Date of Admission: 02/22/2024 Assessment & Plan Dipika Franco is a 83 year old female admitted on 02/22/2024. She presents as a transfer from [facility] in the setting of tumor lysis syndrome [...] phosphorus, BMP, ionized calcium, LDH Cardiac telemetry [place] [facility] consulted, aware of patient from outside [...] hospice agency available in her hometown of [place]. She is interested and would benefit from [...] 2.1 this past week through outside records. [place] potentially secondary to both tumor lysis, dehydration, [...] 2-4 Days Margarita Ruiz MD Hospitalist Service [facility] Securely message with [employer] (more info) Text page via [employer] Paging/Directory Interval History I am constipated. I [...] 02/22/2024. She presents as a transfer from [facility] in the setting of tumor lysis syndrome [...] Evaluation Time PT Eval, Low Complexity Minutes (19544) 10 Physical Therapy Goals PT Frequency 5x/week [...] dynamic activities to improve functional performance Minutes (77210) 12 Treatment Detail/Skilled Intervention Pt needing to [...] timed and untimed services) 22 * Margarita uRiz MD - 02/23/2024 10:08 AM CDT [facility] Medicine Progress Note - Hospitalist Service Date of Admission: 02/22/2024 Assessment & Plan Dipika Franco is a 83 year old female admitted on 02/22/2024. She presents as a transfer from [facility] in the setting of tumor lysis syndrome [...] uric acid as well as creatinine trend. [place] onc[facility] consulted, aware of patient from outside [...] hospice agency available in her hometown of [place]. She is interested and would benefit from [...] 2.1 this past week through outside records. Farley potentially secondary to both tumor lysis, dehydration, [...] 2-4 Days Margarita Ruiz MD Hospitalist Service [facility] Securely message with [employer] (more info) Text page via [facility] Paging/Directory Interval History I got to sleep about 5 AM. Patient says she is exhausted, she was up almost all night long. She says she talked with her son, she does not want to continue chemotherapy. Son asks about timing for discharge, they live in [place] and, if she needs TCU at discharge, she would like to go to [facility]. She has no new respiratory or GI [...] loss and poor appetite. Son came in custodial through. - Dipika explained here 3 years ago, she stopped cooking as much, and started losing wt, which she was happy with. She came back from [place] this past December, had a very poor [...] Weight 61.1 kg (adjusted) Estimated Energy Needs: 9044-6355 kcals (25-30 Kcal/Kg) Justification: maintenance Estimated Protein Needs: 73-92 grams protein (1.2-1.5 g pro/Kg) Justification: preservation of lean body mass Estimated Fluid Needs: 2187-8754 mL (1 mL/Kcal) Justification: maintenance MALNUTRITION: % [...] evaluated per protocol and Practice Guidelines John Ocmapo RD, LD * Tony Dave RN - 02/22/2024 10:55 PM CDT Settled patient, took vitals, filled out personal profile. Patient is A&O x4. She lives alone Son James and daughter Radha are caretakers. Patient has follicular lymphoma and completed a course of chemo on 02/18. Her bloods were taken at the clinic today and she was told to go to the hospital in [place]. She was then transferred to [facility] on Room air except HTN. According to the nurse who gave report there was some concern with Tumor Lysis Syndrome and an VEE. Patient is waiting for Dr. Whitehead to see her. No orders have been put in yet. documented in this encounter H&P Notes * Gallito Whitehead MD - 02/22/2024 10:48 PM CDT [facility] History and Physical - Hospitalist Service Date of Admission: 02/22/2024 Assessment & Plan Dipika Franco is a 83 year old female admitted on 02/22/2024. She presents as a transfer from [facility] in the setting of tumor lysis syndrome [...] uric acid as well as creatinine trend. -[place] onc[facility] consulted, aware of patient from outside [...] hospice agency available in her hometown of [place]. She is interested and would benefit from an informationalmeeting on hospice, preferably with family present. She recognizes that she will transition to hospice at some point in the near future, but no plan to immediately enroll. Her daughter, who is her primary healthcare advocate, is on a vacation to [place] for the next 8 days. Her son, who also lives in [place] and is assisting her while daughter is away will be leaving on vacation the day after her daughter returns. As such, this informational meeting could hopefully be arranged for 2 weeks from now; both local children will be around for 1 week before daughter going on another vacation to [place]. -Encouraged patient to let providers know if [...] 2.1 this past week through outside records. Farley potentially secondary to both tumor lysis, dehydration, [...] hyperuricemia, hypercalcemia Gallito Whitehead MD Hospitalist Service [facility] Securely message with [employer] (more info) Text page via [facility] Paging/Directory Chief Complaint Weakness History is obtained from the patient, chart review, brief discussion with transferring accepting provider, Dr. Chen, review of outside records sent with patient from [facility] History of Present Illness Dipika Franco is a 83 year old female who presents as a direct admission from [facility] in the setting of mantle cell lymphoma with bulky adenopathy and recent chemotherapy now with tumor lysis syndrome. Essentially, she received her first cycle of chemotherapy with Rituxan and Bendeka 02/18 and 02/20/2024. Received Neulasta 02/20/2024. She had labs drawn with her Neulasta and second Bendeka dose, and was on her way home to [place] from [facility] where she received her chemo when she received a call advising her to go to the hospital for treatment of lab abnormalities she has some acute kidney injury with creatinine of 1.8 and 2.1 around time of admission to outsidehospital. Elevated LDH, elevated uric acid. There was concern for tumor lysis syndrome. She was hospitalized at [facility] where [place] [facility] was providing telephone consultation. She received zoledronic acid and was initiated on allopurinol for hypercalcemia and hyperuricemia. Oncology recommended rasburicase in the setting of her renal insufficiency and hyperuricemia, but this was not available at [place]. This led to transfer to [facility] when bed became available. Patient reports no [...] when transport arrived to transfer her from [facility] to [facility]. She was also disappointed as she was [...] APPENDECTOMY CHOLECYSTECTOMY CYSTOCELE REPAIR HYSTERECTOMY LAPAROSCOPY DIAGNOSTIC (COMMODITY MANAGER) N/A 01/22/2024 Procedure: DIAGNOSTIC LAPAROSCOPY, OMENTAL BIOPSIES, [...] the note. Data Laboratory studies reviewed from [facility]. Sodium 134, potassium 3.6, chloride 104, creatinine [...] Communication Assessment Patient's communication style: spoken language (Sol[place] Islander or Bilingual) Hearing Difficulty or Deaf: no [...] Insecurity: No Food Insecurity (01/01/2024) [facility] [employer] [facility] Food Insecurity Worried About Running Out of Food in the Last Year: 1 Depression: At risk (04/05/2023) [facility] PHQ-2 PHQ-2 TOTAL SCORE: 3 Housing Stability: Low Risk (01/01/2024) [facility] from [facility] Housing Stability Unable to Pay for Housing in the Last Year: 1 Tobacco Use: Low Risk (01/22/2024) Patient History Smoking Tobacco Use: Never Smokeless Tobacco Use: Never Passive Exposure: Not on file Financial Resource Strain: Low Risk (01/01/2024) [facility] Financial Resource Strain Difficulty of Paying Living Expenses: 3 Difficulty of Paying Living Expenses: Not on file Alcohol Use: Not on file Transportation Needs: No Transportation Needs (01/01/2024) [facility] Transportation Needs Lack of Transportation (Medical): 1 Physical Activity: Not on file Interpersonal Safety: Not on file Stress: Not on file Social Connections: Socially Isolated (01/01/2024) [facility] Social Connections Frequency of Communication with Friends and Family: 4 Health Literacy: Not on file Functional Status: Prior to admission patient needed assistance: Mental Health Status: Chemical Dependency Status: Values/Beliefs: Spiritual, Cultural Beliefs, Restoration Practices, Values that affect care: Additional Information: Laser Printing Operator received consult for discharge planning. Per H&P, patient is a 83 year old female admitted on 02/22/2024. She presents as a transfer from [facility] in the setting of tumor lysis syndrome after her first cycle of chemotherapy for mantle cell lymphoma. Laser Printing Operator met with patient and introduced self and role. Patient states that she lives in a town home with her dog. Patient states she uses a walker at baseline and gets around pretty well. Both her sonand daughter live in [place] and are able to come over sometimes but not all the time to help. Patient is hoping to find someone to come live with her to help her through chemotherapy but has been unsuccessful. Patient would like to go to [facility]. Laser Printing Operator let her know that, that specific facility no longer has a TCU but we could look at [facility] in [place]. Patient states she does not want to go there. Patient states she would be open to [facility] but if she cannot get in there she is not going to TCU and would like to go home with Home Care. Laser Printing Operator let her know that we would send referrals for both [facility] and Home Care to have a back up option. Laser Printing Operator did discuss the need for chemotherapy having to be held in the TCU. Patient was okay with this and typewriter tester encouraged her to speak with her oncologist [...] Assessment and Plan: Primary Oncologist: Dr. Velarde, Man[place] Follicular lymphoma - Stage IV, grade 1-2 - Symptoms: Weight loss, night sweats, early satiety - Started Bendamustine Rituximab 02/19/24, did not receive Bendamustine day 2 due to severe hypercalcemia which prompted hospital admission - Uric acid elevated at outside hospital, transferred to [facility] and received 6mg Rasbirucase - She received [...] She may wish to go to a snf instead of home - Continue allopurinol Wu Spencer DO [place] [facility] [phone] (office) Chief Complaint: No chief complaint on [...] levated uric acid. She was transferred to [facility] because the other hospital did not have [...] further evaluation and management. 01/03/2024: Presented to [place] ER for unintentional weight loss, fatigue, etc. CT chest/abdomen/pelvis w/ IV contrast noted diffuse adenopathy (likely metastatic), omental carcinomatosis, peritoneal nodularity with thickening and mild enhancement, mild to moderate pelvic ascltes. 01/10/2024: Tumor markers with Ca-125 = 1068 (elevated), CEA = 0.9 (normal) & Ca 19-9 = 8 (normal). 01/15/2024: IR biopsy requested. Patient presented to [facility] & did not feel there was a [...] APPENDECTOMY CHOLECYSTECTOMY CYSTOCELE REPAIR HYSTERECTOMY LAPAROSCOPY DIAGNOSTIC (COMMODITY MANAGER) N/A 01/22/2024 Procedure: DIAGNOSTIC LAPAROSCOPY, OMENTAL BIOPSIES, [...] Summary Reason for therapy discharge: Discharged to [facility] Progress towards therapy goal(s). See goals [...] PT, SW D/C Disposition: pending lab results, [facility] has accepted patient when medically stable, hopefully today Other Info: - K and mag protocols * Plan of Care - Marcy Emanuel RN - 02/27/2024 6:33 PM CDT [id number] Pt continues to struggle with oral intake. [...] Emanuel RN - 02/26/2024 5:22 PM CDT [id number] Pt overall doing well. Up with SBA/GB/walker. [...] 5:08 AM CDT Goal Outcome Evaluation: 02/25/24 [id number] Orientation: A/Ox4 Activity: A1GBW Diet/BS Checks: Reg [...] tomorrow morning. * Plan of Care - Tensiha Vallejo RN - 02/25/2024 6:43 PM CDT [...] to repeat right now Comments: Passed onto manufacturing shift supervisor to watch for the recheck level * [...] 02/23/2024 6:59 AM CDT Goal Outcome Evaluation: [id number] Orientation: A&O x4 Activity: A1 GBW Diet/BS [...] Other Info: * Pharmacy-Admission Medication History - uDstin Fried RP - 02/22/2024 10:48 PM CDT [...] from OSH not available. 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: Added: None Deleted: None Changed: None Allergies reviewed with patient and updates made in EHR: no Medication History Completed By: Dustin Fried RPH 02/22/2024 10:48 PM SALES AND MARKETING DIRECTOR Med List Medication Sig Last Dose Acetaminophen [...] (ABNORMAL) Ionized Calcium (02/29/2024 8:23 AM CDT) [facility] Calcium Ionized Whole Blood 6.8(H) 4.4 - 5.2 mg/dL 02/29/2024 8:36 AM CDT LABORATORY Blood STRUCTURE OF RIGHT UPPER LIMB / Unknown Venipuncture / Unknown 02/29/2024 8:23 AM CDT 02/29/2024 8:32 AM CDT Margarita Ruiz MD LAB - BLOOD ORDER JENNIFER LABORATORY [facility] [address], [address] [place] [address], [place] [phone] * Uric acid (02/29/2024 8:23 AM CDT) Uric Acid 3.5 2.4 - 5.7 mg/dL 02/29/2024 9:16 AM CDT LABORATORY Blood STRUCTURE OF RIGHT UPPER LIMB / Unknown Venipuncture / Unknown 02/29/2024 8:23 AM CDT 02/29/2024 8:32 AM CDT Margarita Ruiz MD LAB - BLOOD ORDER JENNIFER LABORATORY [facility] [address], [address] [place] [address], [facility] [phone] * (ABNORMAL) CBC with platelets (02/29/2024 8:23 AM CDT) Pathologist [facility] WBC Count 15.1(H) 4.0 - 11.0 10e3/uL [...] MD LAB - BLOOD ORDER JENNIFER LABORATORY [facility] [address], [address] [place] [address], [facility] [phone] * (ABNORMAL) Basic metabolic panel (02/29/2024 8:23 AM CDT) [facility] Signature Sodium 137 135 - 145 mmol/L [...] MD LAB - BLOOD ORDER JENNIFER LABORATORY [facility] [address], [address] [place] [address], [facility] [phone] * Magnesium (02/29/2024 8:23 AM CDT) Magnesium 1.8 1.7 - 2.3 mg/dL 02/29/2024 9:16 AM CDT LABORATORY Blood STRUCTURE OF RIGHT UPPER LIMB / Unknown Venipuncture / Unknown 02/29/2024 8:23 AM CDT 02/29/2024 8:32 AM CDT Margarita Ruiz MD LAB - BLOOD ORDER JENNIFER Performing Organization Address City/[facility]/ZIP Co de Phone Number LABORATORY [facility] [address], [address] [address], [facility] [phone] * (ABNORMAL) CBC with platelets (02/28/2024 8:03 [...] 150 - 450 10e3/uL 02/28/2024 8:35 AM [facility] LABORAT[facility] Blood STRUCTURE OF RIGHT UPPER LIMB / Unknown Venipuncture / Unknown 02/28/2024 8:03 AM CDT 02/28/2024 8:13 AM CDT Margarita Ruiz MD LAB - BLOOD ORDER JENNIFER LABORATORY [facility] [address], [address] [place] [address], [facility] [phone] * (ABNORMAL) Basic metabolic panel (02/28/2024 8:03 AM CDT) Sodium 138 135 - 145 mmol/L 02/28/2024 8:46 AM [facility] Comment:Reference intervals for this test were updated on 06/13/2023 to more accurately reflect our healthy population. There may be differences in the flagging of prior results with similar values performed with this method. Interpretation of those prior results can be made in the context of the updated reference intervals. Potassium 3.7 3.4 - 5.3 mmol/L 02/28/2024 8:46 AM [facility] Chloride 99 98 - 107 mmol/L 02/28/2024 8:46 AM [facility] Carbon Dioxide (CO2) 32(H) 22 - 29 mmol/L 02/28/2024 8:46 AM [facility] Anion Gap 7 7 - 15 mmol/L 02/28/2024 8:46 AM [facility] Urea Nitrogen 27.0(H) 8.0 - 23.0 mg/dL 02/28/2024 8:46 AM [facility] Creatinine 1.80(H) 0.51 - 0.95 mg/dL 02/28/2024 8:46 AM [facility] GFR Estimate 27(L) >60 mL/min/1. 73m2 02/28/2024 8:46 AM [facility] Calcium 13.7(H) 8.8 - 10.2 mg/dL 02/28/2024 8:46 AM CDT LABORATORY Glucose 120(H) 70 - 99 mg/dL 02/28/2024 8:46 AM CDT LABORATORY Blood STRUCTURE OF RIGHT UPPER LIMB / Unknown Venipuncture / Unknown 02/28/2024 8:03 AM CDT 02/28/2024 8:13 AM CDT Margarita Ruiz MD LAB - BLOOD ORDER JENNIFER LABORATORY [facility] [address], [address] [place] [address], [place] [phone] * (ABNORMAL) Ionized Calcium (02/28/2024 8:03 AM CDT) Calcium Ionized Whole Blood 7.3(HH) 4.4 - 5.2 mg/dL 02/28/2024 8:43 AM CDT LABORATORY Blood STRUCTURE OF RIGHT UPPER LIMB / Unknown Venipuncture / Unknown 02/28/2024 8:03 AM CDT 02/28/2024 8:13 AM CDT Margarita Ruiz MD LAB - BLOOD ORDER JENNIFER [facility] [address], [address] [place] [address], [place] [phone] * Uric acid (02/28/2024 8:03 AM CDT) Uric Acid 3.4 2.4 - 5.7 mg/dL 02/28/2024 8:40 AM CDT LABORATORY Blood STRUCTURE OF RIGHT UPPER LIMB / Unknown Venipuncture / Unknown 02/28/2024 8:03 AM CDT 02/28/2024 8:13 AM CDT Margarita Ruiz MD LAB - BLOOD ORDER JENNIFER LABORATORY [facility] [address], [address] [place] [address], [facility] [phone] * Magnesium (02/28/2024 8:03 AM CDT) Magnesium 1.8 1.7 - 2.3 mg/dL 02/28/2024 8:46 AM CDT LABORATORY Blood STRUCTURE OF RIGHT UPPER LIMB / Unknown Venipuncture / Unknown 02/28/2024 8:03 AM CDT 02/28/2024 8:13 AM CDT Margarita Ruiz MD LAB - BLOOD ORDER JENNIFER LABORATORY [facility] [address], [address] [place] [address], [facility] [phone] * Magnesium (02/27/2024 9:31 AM CDT) [facility] Magnesium 1.9 1.7 - 2.3 mg/dL 02/27/2024 11:07 AM CDT LABORATORY Blood STRUCTURE OF RIGHT UPPER LIMB / Unknown Venipuncture / Unknown 02/27/2024 9:31 AM CDT 02/27/2024 9:39 AM CDT Margarita Ruiz MD LAB - BLOOD ORDER JENNIFER LABORATORY [facility] [address], [address] [place] [address], [facility] [phone] * (ABNORMAL) CBC with platelets (02/27/2024 9:31 AM CDT) Pathologist [facility] WBC Count 16.7(H) 4.0 - 11.0 10e3/uL [...] MD LAB - BLOOD ORDER JENNIFER LABORATORY [facility] [address], [address] [place] [address], [facility] [phone] * (ABNORMAL) Basic metabolic panel (02/27/2024 9:31 AM CDT) [facility] Sodium 140 135 - 145 mmol/L 02/27/2024 10:23 AM [facility] Comment:Reference intervals for this [...] Ruiz MD LAB - BLOOD ORDER JENNIFER [facility] [address], [address] [place] [address], [facility] [phone] * Phosphorus (02/27/2024 9:31 AM CDT) Phosphorus 3.6 2.5 - 4.5 mg/dL 02/27/2024 7:52 PM CDT LABORATORY Blood STRUCTURE OF RIGHT UPPER LIMB / Unknown Venipuncture / Unknown 02/27/2024 9:31 AM CDT 02/27/2024 9:39 AM CDT Margarita Ruiz MD LAB - BLOOD ORDER JENNIFER [facility] [address], [address] [place] [address], [place] [phone] * XR Abdomen 1 View (02/26/2024 1:48 [...] MD LAB - BLOOD ORDERABL ES LABORATORY [facility] [address], [address] [place] [address], [facility] [phone] * (ABNORMAL) CBC with platelets (02/26/2024 4:52 [...] MD LAB - BLOOD ORDER JENNIFER LABORATORY [facility] [address], [address] [place] [address], [facility] [phone] * (ABNORMAL) Basic metabolic panel (02/26/2024 4:52 AM CDT) Pathologist [facility] Sodium 138 135 - 145 mmol/L 02/26/2024 [...] 4:52 AM CDT 02/26/2024 4:58 AM CDT [place] Pham Ruiz MD LAB - BLOOD ORDER JENNIFER LABORATORY [facility] [address], [address] [place] [address], [facility] [phone] * Potassium (02/26/2024 4:52 AM CDT) [facility] Potassium 4.1 3.4 - 5.3 mmol/L 02/26/2024 5:17 AM CDT LABORATORY Blood STRUCTURE OF RIGHT HAND / Unknown Venipuncture / Unknown 02/26/2024 4:52 AM CDT 02/26/2024 4:57 AM CDT Margarita Ruiz MD LAB - BLOOD ORDER JENNIFER LABORATORY [facility] [address], [address] [place] [address], [place] [phone] * Magnesium (02/26/2024 4:52 AM CDT) Magnesium 1.9 1.7 - 2.3 mg/dL 02/26/2024 5:17 AM CDT LABORATORY Blood STRUCTURE OF RIGHT HAND / Unknown Venipuncture / Unknown 02/26/2024 4:52 AM CDT 02/26/2024 4:57 AM CDT Margarita Ruiz MD LAB - BLOOD ORDER JENNIFER LABORATORY [facility] [address], [address] [place] [address], [place] [phone] * Lactate Dehydrogenase (02/26/2024 4:52 AM CDT) Lactate Dehydrogenase 207 0 - 250 U/L 02/26/2024 5:17 AM CDT LABORATORY Blood STRUCTURE OF RIGHT HAND / Unknown Venipuncture / Unknown 02/26/2024 4:52 AM CDT 02/26/2024 4:57 AM CDT Margarita Ruiz MD LAB - BLOOD ORDER JENNIFER LABORATORY [facility] [address], [address] [place] [address], [place] [phone] * Phosphorus (02/26/2024 4:52 AM CDT) Phosphorus 3.5 2.5 - 4.5 mg/dL 02/26/2024 5:17 AM CDT LABORATORY Blood STRUCTURE OF RIGHT HAND / Unknown Venipuncture / Unknown 02/26/2024 4:52 AM CDT 02/26/2024 4:57 AM CDT Margarita Ruiz MD LAB - BLOOD ORDER JENNIFER LABORATORY [facility] [address], [address] [place] [address], [facility] [phone] * (ABNORMAL) Potassium (02/25/2024 9:04 PM CDT) Potassium 3.3(L) 3.4 - 5.3 mmol/L 02/25/2024 9:56 PM CDT LABORATORY Blood STRUCTURE OF RIGHT HAND / Unknown Venipuncture / Unknown 02/25/2024 9:04 PM CDT 02/25/2024 9:31 PM CDT Margarita Ruiz MD LAB - BLOOD ORDER JENNIFER Performing Organization Address City/[facility]/ZIP Co de Phone Number LABORATORY [facility] [address], [address] [address], [place] [phone] * Magnesium (02/25/2024 9:04 PM CDT) Magnesium 1.9 1.7 - 2.3 mg/dL 02/25/2024 9:56 PM CDT LABORATORY Blood STRUCTURE OF RIGHT HAND / Unknown Venipuncture / Unknown 02/25/2024 9:04 PM CDT 02/25/2024 9:31 PM CDT Margarita Ruiz MD LAB - BLOOD ORDER JENNIFER LABORATORY [facility] [address], [address] [place] [address], [place] [phone] * Phosphorus (02/25/2024 12:03 PM CDT) Phosphorus 2.9 2.5 - 4.5 mg/dL 02/25/2024 4:47 PM CDT LABORATORY Blood STRUCTURE OF RIGHT HAND / Unknown Venipuncture / Unknown 02/25/2024 12:03 PM CDT 02/25/2024 12:31 PM CDT Margarita Ruiz MD LAB - BLOOD ORDER JENNIFER LABORATORY [facility] [address], [address] [place] [address], [facility] [phone] * (ABNORMAL) CBC with platelets (02/25/2024 12:03 [...] MD LAB - BLOOD ORDER JENNIFER LABORATORY [facility] [address], [address] [place] [address], [facility] [phone] * (ABNORMAL) Basic metabolic panel (02/25/2024 12:03 PM CDT) [facility] Sodium 137 135 - 145 [...] 8.0 - 23.0 mg/dL 02/25/2024 12:58 PM [facility] Creatinine 1.48(H) 0.51 - 0.95 mg/dL 02/25/2024 12:58 PM T LABORATORY GFR Estimate 35(L) >60 mL/min/1. 73m2 02/25/2024 12:58 PM T LABORATORY Calcium 12.8(H) 8.8 - 10.2 mg/dL 02/25/2024 12:58 PM T LABORATORY Glucose 182(H) 70 - 99 mg/dL 02/25/2024 12:58 PM [facility] Blood STRUCTURE OF RIGHT HAND / Unknown Venipuncture / Unknown 02/25/2024 12:03 PM CDT 02/25/2024 12:31 PM CDT Margarita Ruiz MD LAB - BLOOD ORDER JENNIFER LABORATORY [facility] [address], [address] [place] [address], [facility] [phone] * (ABNORMAL) Ionized Calcium (02/25/2024 12:03 PM CDT) Calcium Ionized Whole Blood 6.7(H) 4.4 - 5.2 mg/dL 02/25/2024 12:31 PM CDT LABORATORY Blood STRUCTURE OF RIGHT HAND / Unknown Venipuncture / Unknown 02/25/2024 12:03 PM CDT 02/25/2024 12:29 PM CDT Margarita Ruiz MD LAB - BLOOD ORDER JENNIFER LABORATORY [facility] [address], [address] [address], [facility] [phone] * (ABNORMAL) Lactate Dehydrogenase (02/25/2024 12:03 PM CDT) Lactate Dehydrogenase 308(H) 0 - 250 U/L 02/25/2024 12:58 PM CDT LABORATORY Blood STRUCTURE OF RIGHT HAND / Unknown Venipuncture / Unknown 02/25/2024 12:03 PM CDT 02/25/2024 12:31 PM CDT Margarita Ruiz MD LAB - BLOOD ORDER JENNIFER LABORATORY [facility] [address], [address] [place] [address], [place] [phone] * (ABNORMAL) Magnesium (02/25/2024 12:03 PM CDT) Magnesium 1.5(L) 1.7 - 2.3 mg/dL 02/25/2024 12:58 PM CDT LABORATORY Blood STRUCTURE OF RIGHT HAND / Unknown Venipuncture / Unknown 02/25/2024 12:03 PM CDT 02/25/2024 12:31 PM CDT Margarita Ruiz MD LAB - BLOOD ORDER JENNIFER LABORATORY [facility] [address], [address] [place] [address], [place] [phone] * (ABNORMAL) Uric acid, Rasburicase (02/25/2024 12:03 PM CDT) Uric Acid, Rasburicase 1.0(L) 2.4 - 5.7 mg/dL 02/25/2024 12:51 PM CDT LABORATORY Comment:Uric Acid specimen d rawn and processed following the post-Rasburicase monitoring protocol. Blood STRUCTURE OF RIGHT HAND / Unknown Venipuncture / Unknown 02/25/2024 12:03 PM CDT 02/25/2024 12:29 PM CDT Gallito Whitehead MD LAB - BLOOD ORDERABL ES Performing Organization Address City/[facility]/ZIP Co de Phone Number LABORATORY [facility] [address], [address] [place] [address], [place] [phone] * XR Chest 2 Views (02/25/2024 3:17 [...] CDT EXAM: XR CHEST 2 VIEWS LOCATION: [facility] [place] DATE: 02/25/2024 INDICATION: Shortness of breath. Hypercalcemia with fluid, but also got Rasburicase recently. COMPARISON: CT chest, abdomen and pelvis with IV contrast 01/03/2024. Procedure Note Antoinette Bobby MD - 02/25/2024 EXAM: XR CHEST 2 VIEWS LOCATION: [facility] [place] DATE: 02/25/2024 INDICATION: Shortness of breath. Hypercalcemia [...] MD LAB - BLOOD ORDERABL ES LABORATORY [facility] [address], [address] [place] [address], [facility] [phone] * Magnesium (02/24/2024 7:45 AM CDT) Pathologist [facility] Magnesium 1.7 1.7 - 2.3 mg/dL 02/24/2024 8:19 AM CDT LABORATORY Blood STRUCTURE OF LEFT HAND / Unknown Venipuncture / Unknown 02/24/2024 7:45 AM CDT 02/24/2024 8:01 AM CDT Margarita Ruiz MD LAB - BLOOD ORDER JENNIFER LABORATORY [facility] [address], [address] [place] [address], [facility] [phone] * (ABNORMAL) CBC with platelets (02/24/2024 7:45 [...] MD LAB - BLOOD ORDER JENNIFER LABORATORY [facility] [address], [address] [place] [address], [place] [phone] * (ABNORMAL) Basic metabolic panel (02/24/2024 7:45 AM CDT) [facility] Sodium 138 135 - 145 mmol/L 02/24/2024 8:36 AM [facility] Comment:Reference intervals for this test were updated on 06/13/2023 to more accurately reflect our healthy population. There may be differences in the flagging of prior results with similar values performed with this method. Interpretation of those prior results can be made in the context of the updated reference intervals. Potassium 3.6 3.4 - 5.3 mmol/L 02/24/2024 8:36 AM [facility] Chloride 103 98 - 107 mmol/L 02/24/2024 8:36 AM [facility] Carbon Dioxide (CO2) 24 22 - 29 mmol/L 02/24/2024 8:36 AM [facility] Anion Gap 11 7 - 15 mmol/L 02/24/2024 8:36 AM T LABORATORY Urea Nitrogen 25.5(H) 8.0 - 23.0 mg/dL 02/24/2024 8:36 AM [facility] Creatinine 1.38(H) 0.51 - 0.95 mg/dL 02/24/2024 8:36 AM T LABORATORY GFR Estimate 38(L) >60 mL/min/1. 73m2 02/24/2024 8:36 AM T LABORATORY Calcium 12.6(H) 8.8 - 10.2 mg/dL 02/24/2024 8:36 AM T LABORATORY Glucose 121(H) 70 - 99 mg/dL 02/24/2024 8:36 AM [facility] Blood STRUCTURE OF LEFT HAND / Unknown Venipuncture / Unknown 02/24/2024 7:45 AM CDT 02/24/2024 8:00 AM CDT Margarita Ruiz MD LAB - BLOOD ORDER JENNIFER LABORATORY [facility] [address], [address] [place] [address], [facility] [phone] * Magnesium (02/23/2024 11:27 PM CDT) Magnesium 1.8 1.7 - 2.3 mg/dL 02/23/2024 11:57 PM CDT LABORATORY Blood STRUCTURE OF LEFT HAND / Unknown Venipuncture / Unknown 02/23/2024 11:27 PM CDT 02/23/2024 11:37 PM CDT Margarita Ruiz MD LAB - BLOOD ORDER JENNIFER Performing Organization Address City/[facility]/ZIP Co de Phone Number LABORATORY [facility] [address], [address] [place] [address], [facility] [phone] * Potassium (02/23/2024 11:31 AM CDT) Potassium 3.8 3.4 - 5.3 mmol/L 02/23/2024 12:08 PM CDT LABORATORY Blood STRUCTURE OF LEFT HAND / Unknown Venipuncture / Unknown 02/23/2024 11:31 AM CDT 02/23/2024 11:45 AM CDT Margarita Ruiz MD LAB - BLOOD ORDER JENNIFER LABORATORY [facility] [address], [address] [place] [address], [facility] [phone] * (ABNORMAL) Magnesium (02/23/2024 11:31 AM CDT) Magnesium 1.3(L) 1.7 - 2.3 mg/dL 02/23/2024 12:08 PM CDT LABORATORY Blood STRUCTURE OF LEFT HAND / Unknown Venipuncture / Unknown 02/23/2024 11:31 AM CDT 02/23/2024 11:45 AM CDT Margarita Ruiz MD LAB - BLOOD ORDER JENNIFER [facility] [address], [address] [address], [place] [phone] * Lactate Dehydrogenase (02/23/2024 4:36 AM CDT) Lactate Dehydrogenase 235 0 - 250 U/L 02/23/2024 5:17 AM CDT LABORATORY Blood STRUCTURE OF RIGHT UPPER LIMB / Unknown Venipuncture / Unknown 02/23/2024 4:36 AM CDT 02/23/2024 4:53 AM CDT Gallito Whitehead MD LAB - BLOOD ORDERABL ES Performing Organization Address City/[facility]/ZIP Co de Phone Number [facility] [address], [address] [address], [place] [phone] * (ABNORMAL) Ionized Calcium (02/23/2024 4:36 AM CDT) Calcium Ionized Whole Blood 6.9(H) 4.4 - 5.2 mg/dL 02/23/2024 4:45 AM CDT LABORATORY Blood STRUCTURE OF RIGHT UPPER LIMB / Unknown Venipuncture / Unknown 02/23/2024 4:36 AM CDT 02/23/2024 4:42 AM CDT Gallito Whitehead MD LAB - BLOOD ORDERABL ES LABORATORY [facility] [address], [address] [place] [address], [place] [phone] * Phosphorus (02/23/2024 4:36 AM CDT) Phosphorus 2.8 2.5 - 4.5 mg/dL 02/23/2024 5:17 AM CDT LABORATORY Blood STRUCTURE OF RIGHT UPPER LIMB / Unknown Venipuncture / Unknown 02/23/2024 4:36 AM CDT 02/23/2024 4:53 AM CDT Gallito Whitehead MD LAB - BLOOD ORDERABL ES LABORATORY [facility] [address] [place] [address], [facility] [phone] * (ABNORMAL) Basic metabolic panel (02/23/2024 4:36 [...] 3.4 - 5.3 mmol/L 02/23/2024 5:17 AM [facility] Chloride 101 98 - 107 mmol/L 02/23/2024 5:17 AM [facility] Carbon Dioxide (CO2) 25 [...] MD LAB - BLOOD ORDERABL ES LABORATORY [facility] [address], [address] [place] [address], [place] [phone] * Uric acid, Rasburicase lab to be [...] MD LAB - BLOOD ORDERABL ES LABORATORY [facility] [address], [address] [place] [address], [place] [phone] * (ABNORMAL) CBC with platelets (02/23/2024 4:36 [...] MD LAB - BLOOD ORDERABL ES LABORATORY [facility] [address], [address] [place] [address], [facility] [phone] * (ABNORMAL) Comprehensive metabolic panel (02/23/2024 4:36 AM CDT) [facility] Sodium 137 135 - 145 [...] 7 - 15 mmol/L 02/23/2024 5:17 AM [facility] Urea Nitrogen 31.3(H) 8.0 - 23.0 mg/dL 02/23/2024 5:17 AM [facility] Creatinine 1.65(H) 0.51 - 0.95 mg/dL 02/23/2024 5:17 AM [facility] GFR Estimate 30(L) >60 mL/min/1. 73m2 02/23/2024 5:17 AM [facility] Calcium 12.7(H) 8.8 - 10.2 mg/dL 02/23/2024 5:17 AM [facility] Chloride 101 98 - 107 mmol/L 02/23/2024 5:17 AM [facility] Glucose 124(H) 70 - 99 mg/dL 02/23/2024 5:17 AM [facility] Alkaline Phosphatase 83 40 - 150 U/L 02/23/2024 5:17 AM [facility] AST 14 0 - 45 U/L 02/23/2024 5:17 AM [facility] Comment:Reference intervals for this test were updated on 02/27/2023 to more accurately reflect our healthy population. There may be differences in the flagging of prior results with similar values performed with this method. Interpretation of those prior results can be made in the context of the updated reference intervals. ALT 6 0 - 50 U/L 02/23/2024 5:17 AM [facility] Comment:Reference intervals for this test were updated on 02/27/2023 to more accurately reflect our healthy population. There may be differences in the flagging of prior results with similar values performed with this method. Interpretation of those prior results can be made in the context of the updated reference intervals. Protein Total 4.9(L) 6.4 - 8.3 g/dL 02/23/2024 5:17 AM [facility] Albumin 3.0(L) 3.5 - 5.2 g/dL 02/23/2024 5:17 AM [facility] Bilirubin Total 0.2 <=1.2 mg/dL 02/23/2024 5:17 AM [facility] Blood STRUCTURE OF RIGHT UPPER LIMB / Unknown Venipuncture / Unknown 02/23/2024 4:36 AM CDT 02/23/2024 4:53 AM CDT Gallito Whitehead MD LAB - BLOOD ORDERABL ES LABORATORY [facility] [address], [address] [place], [place] [id number], [place] [phone] documented in this encounter Visit Diagnoses Diagnosis [...] 20 mEq 20 mEq, Oral, ONCE, On [facility] 02/29/24 at 0930, For 1 dose, Potassium level 3.1 - 3.4 mmol/L Ordered from the Potassium replacement order set. DO NOT CRUSH, Potassium Replacement: Potassium level 3.1-3.4 mmol/L, Recheck: Potassium level 4 hours AFTER last oral dose $Given 02/29/2024 11:06 AM CDT 20 mEq potassium chloride tien ER (KLOR-CON M20) CR tablet 40 mEq 40 mEq, Oral, ONCE, On [place] 02/25/24 at 1430, For 1 dose, Potassium [...] DAILY, First dose (after last modification) on [facility] 02/24/24 at 2100, 1 Packet [...] DAILY, First dose (after last modification) on [place] 02/25/24 at 2100, Hold for loose stools. [...] Emanuel, CHRISTEN)1746 ($Given - Provider: Marcy Emanuel, CHIRSTEN) 0058 ($Given - Provider: Zulma Woodard RN)[phone] [...] documented as of this encounter Care Teams Waste Collection Driver Relationship Specialty Start Date End Date Alisha Yuan MD [address] [address] PCP - General Family Medicine 01/11/24 documented as of this encounter
--- OUTSIDE RECORDS SUMMARY | 2024-05-16 15:44 | XMS_ITS | Clinical Summary ---
Author Organization [facility] Address [place], [place] [address] Care Team Providers Care [facility] Name Role Phone [facility] Unavailable [phone] KwabenaZena hanna MD Primary Care Provider Allergies Active Allergy Reactions Criticality Noted Date Comments Metformin Nausea Only 04/01/2013 Patient states I felt like I had morning sickness every morning Niacin Hives 03/01/2006 Sulfa (Sulfonamide Antibiotics) Hives 03/01/2006 Medications Medication Sig Dispensed Refills Start Date End Date Status blood-glucose meterIndications:D iabetes mellitus without complication (HC) [...] Tablet 03/04/2024 Active acetaminophen (TYLENOL) 325 mg tabletIndications: S/P cervical spinal fusion Take 2 Tablets (650 mg) by mouth every 4 hours if needed for Pain. Max acetaminophen dose: 4000mg in 24 hrs. 120 Tablet 03/04/2024 Active sennosides (SENNA) 8.6 mg tablet Take 1 Tablet (8.6 mg) by mouth 2 times daily if needed for Constipation. 03/06/2024 Active allopurinoL (ZYLOPRIM) 100 mg tabletIndications: Acute gout of left hand, unspecified cause TAKE 1 TABLET (100 MG) BY MOUTH 3 TIMES DAILY 90 Tablet 03/25/2024 Active Active Problems Problem Noted Date Diagnosed [...] Overview: left, 11/24. 19mm. follow up at [place], 6 months Diverticulosis Resolved Problems Problem Noted Date Diagnosed Date Resolved Date Severe obesity (BMI 35.0-39. 9) with comorbidity 11/22/2016 01/01/2024 Post-operative pain 07/23/2013 05/23/20 Painful Hardware 03/27/2013 04/05/2013 Other secondary hypertension, benign 04/12/2006 02/06/2008 hyperglycemia 04/12/2006 02/06/2008 Other complications due to u nspecified device, implant, and graft 03/01/2006 03/22/2013 Overview: Painful hardware L2-3 Encounters Date Type Department Care Team Description 04/23/2024 Orders Only [facility] Scanner 1 scan: (1-Ord) [facility], 04/23/2024 03/20/[address] [address] Zena Yuan MD Refill Request (Allopurinol) 03/12/2024 Patient Outreach [address] [address] Zena Zambrano RN Serious Illness Conversation (RN follow up) 03/07/2024 11:45 AM CDT Office Visit [address] [address] Zena Yuan MD Serious Illnes Conversation; Hospital F/U; Serious Illness Conversation 03/07/2024 Travel 03/04/2024 2:15 PM CDT Ancillary Procedure [address] [address] 03/04/2024 1:40 PM CDT Office Visit [address] [address] Agustina Blake PA Hand Pain/problem 03/04/2024 Telephone [facility] [address] [place] [address] Zena Yuan MD orders 03/04/2024 Travel 03/04/2024 Nurse Triage [facility] [address] [place] [address] Zena Yuan MD Finger Pain/problem 03/01/2024 Refill [facility] [address] [place] [address] Zena Yuan MD Refill Request (Potassium chloride); Medication Management 02/29/2024 Telephone [facility] [address] [place] [address] Zena Yuan MD Questions 02/21/2024 Orders Only [facility] Scanner 1 scan: (1-Ord) [facility], 02/21/2024 from Last 3 Months Immunizations [...] 07/04/2014, 07/20/2007 Medical Devices Implanted Type Area Mosaicist Device Identifier Shelf Expiration Date Model / Serial / Lot Beto Spinal Hex End 20in Titnm Cd - [id number] Implanted:Qty: 1 on 04/27/2010 at [facility] Spine Implants N/A: Spine SOFAMOR DANEK [id number]# / / Xstop Size 14 Mm Implanted:Qty: 1 on 04/12/2006 at [facility] Spine 200 141 / / [id number] Description:XSTOP SIZE 14MM [id number] Canclls Crushed 30cc [[id number]] Implanted:Qty: 1 on 08/09/2006 at [facility] Explanted:at [facility] (Quantity not on file) Spine Allosource 05/06/2011 [id number]# / [id number] / Kit Infuse Lg [id number] - [id number] Implanted:Qty: 1 on 08/09/2006 at [facility] Spine SOFAMOR DANEK [id number]# / / [id number] I Hook Narrow Blade Lg Std - [id number] Implanted:Qty: 4 on 04/27/2010 at [facility] N/A: Spine SOFAMOR DANEK [id number]# / / Cnnctr Ti 5.5 16mm Crosslink - [id number] Implanted:Qty: 1 on 04/27/2010 at [facility] N/A: Spine SOFAMOR DANEK [id number]# / / Cnnctr Ti 5.5 22mm Crosslink - [id number] Implanted:Qty: 1 on 04/27/2010 at [facility] N/A: Spine SOFAMOR DANEK [id number]# / / Screw Set Break-Off Hex Titnm - [id number] Implanted:Qty: 4 on 04/27/2010 at [facility] N/A: Spine SOFAMOR DANEK [id number]# / / Kit Infuse Lg [id number] - [id number] Implanted:Qty: 1 on 04/27/2010 at [facility] Spine SOFAMOR DANEK [id number]# / / [id number] A Screw 535x50 Standard Implanted:Qty: 1 on 04/27/2010 at [facility] Spine 835 [id number] / / Description:SCREW 535X50 STA NDARD Screw 4.5x50 Standard Implanted:Qty: 1 on 04/27/2010 at [facility] Spine 835 [id number] / / Description:SCREW 4.5X50 STA NDARD Screw 4.5x45 Standard Implanted:Qty: 1 on 04/27/2010 at [facility] Spine 835 [address] / / Description:SCREW 4.5X45 STA NDARD [id number] e Canclls Crushed 60cc [[id number]] Implanted:Qty: 1 on 04/27/2010 at [facility] Explanted:at [facility] (Quantity not on file) Spine Musculoskeletal Transplant 11/19/2012 181474# / [id number] / [id number] e Canclls Crushed 60cc [[id number]] Implanted:Qty: 1 on 04/27/2010 at [facility] Explanted:at [facility] (Quantity not on file) Spine Musculoskeletal Transplant 11/19/2012 781801# / [id number] / Set Screw 3dx - [id number] Implanted:Qty: 7 on 04/27/2010 at [facility] N/A: Spine MEDTRONIC PS MEDICAL [id number]# / / Cnnctr Tsrh 3dx Sm - [id number] Implanted:Qty: 5 on 04/27/2010 at [facility] N/A: Spine Medtronic 6751895# / / Cnnctr Tsrh 3dx Md - [id number] Implanted:Qty: 1 on 04/27/2010 at [facility] N/A: Spine Medtronic [id number]# / / Screw Thin Crest 5.5x45mm - [id number] Implanted:Qty: 2 on 04/27/2010 at [facility] N/A: Spine SOFAMOR DANEK [id number]# / / [id number] Canc 90cc Crushed Freeze Dried [[id number]][[id number]] Implanted:Qty: 1 on 07/16/2013 at [facility] Spine Musculoskeletal Transplant 12/18/2015 118000# / [id number] / [id number] Implanted:Qty: 1 on 07/16/2013 at [facility] Spine SPINAL GRAFT 06/02/2016 4 2275 / [id number] / Description:DBM [id number] GRAFT ON M [id number] Matrix 1x5cm Magnifuse Pcdbm [[id number]] Implanted:Qty: 1 on 07/16/2013 at [facility] Explanted:at [facility] (Quantity not on file) Spine Medtronic Spine/Ortho 05/29/2015 [id number]# / [id number] / Screw Lock 5.5mm Solera Break Off - [id number] Implanted:Qty: 6 on 07/16/2013 by Simón Hodge MD at [facility] N/A: Spine Medtronic Spine/Ortho [id number]# / / Screw Polyaxial 5.5x50 Co Cr Solera - [id number] Implanted:Qty: 2 on 07/16/2013 by Simón Hodge MD at [facility] N/A: Spine Medtronic Spine/Ortho [id number] 50# / / Screw Polyaxial 5.5x55 Co Cr Solera - [id number] Implanted:Qty: 1 on 07/16/2013 by Simón Hodge MD at [facility] N/A: Spine Medtronic Spine/Ortho [id number] 55# / / Screw Polyaxial 6.5x50 Co Cr Solera - [id number] Implanted:Qty: 1 on 07/16/2013 by Simón Hodge MD at [facility] N/A: Spine Medtronic Spine/Ortho [id number] 50# / / Screw Polyaxial 7.5x50 Co Cr Solera - [id number] Implanted:Qty: 1 on 07/16/2013 by Simón Hodge MD at [facility] N/A: Spine Medtronic Spine/Ortho [id number] 50# / / Screw Polyaxial 7.5x55 Co Cr Solera - [id number] Implanted:Qty: 1 on 07/16/2013 by Simón Hodge MD at [facility] N/A: Spine Medtronic Spine/Ortho [id number] 55# / / Beto 5.6g682zp Stra Titnm Alloy Solera - [id number] Implanted:Qty: 2 on 07/16/2013 by Simón Hodge MD at [facility] N/A: Spine Medtronic Spine/Ortho [id number] 0# / / Lauro Stephens Md Std - [id number] Implanted:Qty: 2 on 07/16/2013 by Simón Hodge MD at [facility] N/A: Spine Medtronic Spine/Ortho [id number]# / / Lauro Stephens Md Rmpd Thorac - [id number] Implanted:Qty: 8 on 07/16/2013 by Simón Hodge MD at [facility] N/A: Spine Medtronic Spine/Ortho 4375685# / / Screw Set Break-Off Hex Titnm - [id number] Implanted:Qty: 10 on 07/16/2013 by Simón Hodge MD at [facility] N/A: Spine Medtronic Spine/Ortho 8505098# / / Cnnctr Ti 5.5 16mm Xlink - [id number] Implanted:Qty: 1 on 07/16/2013 by Simón Hodge MD at [facility] N/A: Spine Medtronic Spine/Ortho [id number]# / / Cnnctr Ti 5.5 28mm Xlink - [id number] Implanted:Qty: 1 on 07/16/2013 by Simón Hodge MD at [facility] N/A: Spine Medtronic Spine/Ortho [id number]# / / [id number] 1cc Nemaha Plus Paste Dbm Implanted:Qty: 1 on 05/30/2019 by Josh Casillas MD at [facility] Explanted:at [facility] (Quantity not on file) N/A: Spine Medtronic Spine/Ortho 11/21/2020 [id number]# / [id number] / [id number] 4-10mm 15cc Medtronic Canclls Chips Freeze Dried Implanted:Qty: 1 on 05/30/2019 by Josh Casillas MD at [facility] Explanted:at [facility] (Quantity not on file) N/A: Spine Medtronic Spine/Ortho 09/16/2023 [id number]# / [id number] / Cage 5mm X 16mm X 14mm Implanted:Qty: 1 on 05/30/2019 by Josh Casillas MD at [facility] N/A: Spine [id number] / / 85HK Screw Cerv Ant 4x13mm Atlantistranslational Fa Slf Drill - [id number] Implanted:Qty: 2 on 05/30/2019 by Josh Casillas MD at [facility] N/A: Spine Medtronic Spine/Ortho [id number]# / / Screw Cerv Ant 4x13mm Atlantistranslational Va Slf Drill - [id number] Implanted:Qty: 2 on 05/30/2019 by Josh Casillas MD at [facility] N/A: Spine Medtronic Spine/Ortho [id number]# / / Plate Cerv 1lvl 19mmvision Elite Ant - [id number] Implanted:Qty: 1 on 05/30/2019 by Josh Casillas MD at [facility] N/A: Spine Medtronic Spine/Ortho [id number]# / / Procedures Procedure Name Priority Date/Time Associated Diagnosis Comments SCAN-ULTRASOUND REPORT 04/23/2024 12:00 AM CDT XR FINGER 3 VIEWS LEFT ANITA 03/04/2024 2:02 PM CDT Finger pain, left SCAN-ULTRASOUND REPORT 02/21/2024 12:00 AM CDT XR DXA BONE DENSITY 1 SITE AXIAL AND 1 SITE PERIPHERAL Routine 03/03/2021 2:36 PM CDT Low bone density for age from Last 3 Months or Most Recently Relevant to Health Maintenance Results * SCAN-ULTRASOUND REPORT (04/23/2024 12:00 AM CDT) Only the most recent of2 resultswithin the time period is included. Anatomical Region Laterality Modality Other Scanner OTHER * XR FINGER 3 VIEWS LEFT (03/04/2024 [...] @ 03/04/2024 2:48:45 PM (Electronically Signed) Agustina AGUIRREIN G * (ABNORMAL) XR DXA BONE DENSITY 1 [...] exercise. Repeat scan recommended in 3-5 years. aTshia Maldonado PA-C [facility] 03/09/2021 Narrative 03/09/2021 1:55 PM CDT XR DXA Bone Mineral Density (BMD) EXAM LOCATION: [address] [place] [address] PATIENT NAME: Kendal Franco DATE OF : [...] two scanners are made by the same aniline press worker. PROCEDURE: Dual-energy x-ray absorptiometry performed with routine [...] Documents on File Type Date Recorded Patient Cardiac Care Nurse Expl anation POLST 02/29/2024 Healthcare Directive 04/06/2010 [...] 11:59 AM 04/03/2013 2:53 PM Care Teams [facility] Relationship Specialty Start Date End Date Zena Yuan MD [address] [place] [address] PCP - General Family Practice 09/30/13 [facility], [facility] 07/22/13 [facility] 01/28/11 Dr. Gilbert Knox 01/28/11
--- OUTSIDE RECORDS SUMMARY | 2024-05-16 15:44 | XMS_ITS ---
Author Organization [place] Address [address] [place] [address] Care Team Providers Care Ping Pong Table Assembler Name Role Phone Zena Yuan MD Primary Care Provider [phone] Transitional Care Management Status:Closed (Closed) Start date:03/01/2024 Enrollment date:03/02/2024 End date:03/15/2024 Close reason:Goals met Continued Care and Services Coordination
--- OUTSIDE RECORDS SUMMARY | 2024-05-16 15:44 | XMS_ITS | Encounter Summary ---
Author Organization [place] Address [address] [place] [address] Care Team Providers Care Land Development Manager Name Role Phone Zena Yuan MD Primary Care Provider Encounter Details Date Type Department Care Team (Late st Contact Info) Description 01/11/[address] [facility] [address] [place] [address] Keila Liu RN Social History Tobacco Use [...] on filedocumented in this encounter Care Teams Land Development Manager Relationship Specialty Start Date End Date [place] [address] [place] [address] PCP - General Family Medicine 01/11/24 documented as of this encounter
--- NOTE | 2024-05-16 16:00 | PE_ITS ---
[facility] [address] [facility] [address] Phone:?[phone] Fax:?[phone] Referring Physician Information: Kelly Frye N.P. [address] [facility] [address] Phone:?[phone] Fax:?[phone] Patient:?Dipika Franco D.O.B:?1940 Sex:?Female Phone:?[phone] [facility] MRN:?[id number] Exam Date:?05/16/2024 EXAM:?PET/CT EYES TO THIGHS, CANCER INITIAL STAGING CLINICAL INFORMATION: Non-Hodgkin's lymphoma. Evaluate response to treatment TECHNICAL INFORMATION: Helical acquisition of data was obtained from the orbits to the upper thighs with reconstruction of 3.75 mm thick images at 3.[address] data was used for attenuation correction. PET scanning was performed through the same anatomic range 60 minutes following administration of 11.02 mCi of 18-FDG delivered intravenously. The patient's glucose at the time of the injection was 103 mg/dL. PET, CT and PET/CT fusion images are interpreted using a computer viewing workstation. PET, CT and PET/CT fusion images were archived and saved in the patient's permanent medical record. COMPARISON: CT chest, abdomen and pelvis 01/03/2024 INTERPRETATION: Head and Neck: There are no abnormal hypermetabolic foci within the head or neck. There is physiologic uptake in the intracranial soft tissues. Chest: Background mediastinal blood pool activity with a mean SUV of 1.74. Significant interval decrease in size of previously visualized mediastinal and left hilar lymphadenopathy. No hypermetabolic lymph nodes. No suspicious lung nodules. Right chest wall bunny catheter. Coronary artery atherosclerosis. Abdomen and Pelvis: Background liver parenchymal uptake with a mean SUV of 2. Interval decreased peritoneal/omental nodularity. Interval decrease in size of retroperitoneal and central mesenteric lymphadenopathy. A small nonspecific focus of uptake in the left lower ventral abdominal region (fused image 207) with an SUV max of 5.78. This focus is adjacent to loops of small bowel without definite CT correlate. There is physiologic excretion of radiotracer in the urine and bowel. Moderate volume ascites. Mesenteric edema. Diffuse body wall edema. Postsurgical changes of cholecystectomy. Mild splenomegaly. Aortoiliac atherosclerosis. Moderate stool burden. Skeleton, Musculature, and Integument: No katelin osteoblastic or osteolytic disease. Extensive fixation hardware throughout the spine. Diffuse low level radiotracer avidity throughout the visualized osseous structures. A small focus of uptake along the superior aspect of the T12 vertebral body with an SUV max of 4. No discrete CT correlate lesion. The focus of uptake is just superior to hardware in the region. CONCLUSION: * Overall favorable response to therapy with interval decreased lymphadenopathy in the chest, abdomen and pelvis. No hypermetabolic lymphadenopathy is present. * A small focus of uptake in the left lower ventral abdominal region adjacent to small bowel which is nonspecific. Findings could be infectious or inflammatory with a small metastatic deposit not excluded. Recommend short interval follow- up CT abdomen/pelvis in 3 months. * A nonspecific focus of low level uptake in the T12 vertebral body without CT correlate lesion. Attention on follow-up imaging. * Interval decreased omental/peritoneal nodularity. Moderate volume ascites. Electronically signed on 05/21/2024 10:59:00 AM by Romario Salomon D.O
== END 2024-05-16 15:40 | disposition home or self-care (01) ==
LOC: RAD 15:40
PROVIDERS: PCP Family Medicine; Visit Provider Nurse Practitioner Adult Health
DX: C82.18 Follicular lymphoma grade II, lymph nodes of multiple sites (principal); R18.8 Other ascites; C79.82 Secondary malignant neoplasm of genital organs; M89.9 Disorder of bone, unspecified
CPT/HCPCS: 78815; A9552

== ENCOUNTER 2024-06-27 12:25 | Outpatient (CLI) | payer MEDICARE, OTHER, SELFPAY ==
--- OUTSIDE RECORDS SUMMARY | 2024-06-27 12:27 | XMS_ITS ---
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 Past Plans No past plan information found. Radiation Treatments * No radiation treatments are documented for this patient in [facility]. Treatments may have been administered in another system. Lifetime Dose Tracking * Chemical Lifetime Dose Automatic Entry Manual Entr y Total Air Kerma 5 mGy 5 mGy 0 mGy Fluoro Time 1 Minutes 1 Minutes 0 Minutes
--- OUTSIDE RECORDS SUMMARY | 2024-06-27 12:27 | XMS_ITS | Referral Summary ---
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 Interventional Radiology [address] [facility] 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 UCHE DOUGLAS MD Narrative 04/04/2024 10:14 AM CDT [facility] EXAM: IMPLANTABLE RIGHT INTERNAL JUGULAR CHEST [...] observer. The physician spent 50 minutes of [id number] moderate sedation time with the patient. ADDITIONAL [...] Procedure Note Uche Douglas MD - 04/04/2024 [facility] EXAM: IMPLANTABLE RIGHT INTERNAL JUGULAR CHEST [...] observer. The physician spent 50 minutes of [id number] moderate sedation time with the patient. ADDITIONAL [...] AM CDT 04/04/2024 8:03 AM CDT [facility] OIL GAUGER PERSONAL COUNSELOR LAB - BLOOD ORDERABLES [facility] [address] Lab (1st floor, no room number) [place] [address], [facility] from Last 3 Months Additional Health Concerns Active Problems Noted Date Diagnosed Date MyC ECC SURG ENROLL 01/17/2024 Advance Directives For more information, please contact: [phone] * No CPR- Do NOT Intubate (Latest Code Status on File) Date Activated Date Inactivated Comments 02/22/2024 11:35 PM 02/29/2024 2:15 PM NO basic or advanced life-sustaining interventions are performed Question Answer Comments Code status determined by: Discussion with patie nt/ legal decision maker Care Teams Clinical Rehabilitation Liaison Relationship Specialty Start Date End Date [place] [address] PCP - General Family Medicine 01/11/24
--- OUTSIDE RECORDS SUMMARY | 2024-06-27 12:27 | XMS_ITS | Clinical Summary ---
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 (H) Discharge Disposition: Home or Self Care 03/29/2024 Telephone [facility] Interventional Radiology [address] [place] [address] Juanito Hamm, CHRISTEN from Last 3 Months Social History Tobacco [...] HM ORDERS 1939 DEXA 1939 LIPID 1939 FALL RISK ASSESSMENT 2004 RSV VACCINE (1 - 1-dose 75+ series) 2014 DTAP/TDAP/TD IMMUNIZATION (2 - Td or Tdap) 06/10/2023 06/10/2013, 01/06/2006 PHQ-2 (once per calendar year) 2023 MEDICARE ANNUAL WELLNESS VISIT 04/05/2024 04/05/2023, 03/30/2022, 02/26/2021 COVID-19 Vaccine ( season) 2024 08/08/2023, 06/25/2022, 02/04/2022, Additional history exists INFLUENZA VACCINE (#1) 2024 , 06/25/2022, 06/03/2021, [...] Plan MyC ECC SURG ENROLL No Camille Trores Medical Devices Implanted Type Area [employer] Counselor Device Identifier Shelf Expiration Date Model / Serial / Lot Port-04/04/2024 Implanted:Qty: 1 on 04/04/2024 by Uche Douglas MD Port Right: Chest Wall [id number] 01/15/2027 / / [id number] Procedures Procedure Name Priority Date/Time Associated Diagnosis [...] DOUGLAS MD Narrative 04/04/2024 10:14 AM CDT [facility] EXAM: IMPLANTABLE RIGHT INTERNAL JUGULAR CHEST [...] observer. The physician spent 50 minutes of nfyn-ye-jcns moderate sedation time with the patient. ADDITIONAL [...] Procedure Note Uche Douglas MD - 04/04/2024 [facility] EXAM: IMPLANTABLE RIGHT INTERNAL JUGULAR CHEST [...] observer. The physician spent 50 minutes of tbyo-vs-nbbh moderate sedation time with the patient. ADDITIONAL [...] CBC with platelets (04/04/2024 8:00 AM CDT) [facility] WBC Count 19.4(H) 4.0 - 11.0 10e3/uL [...] AM CDT 04/04/2024 8:03 AM CDT [facility] HOUSE SUPERINTENDENT HEAD UP OPERATOR HELPER LAB - BLOOD ORDERABLES RH LABORATORY [facility] Acute Care Lab [address] [facility] Lab (1st floor, no room number) [place] [address], [facility] from Last 3 Months Additional Health Concerns Active Problems Noted Date Diagnosed Date MyC ECC SURG ENROLL 01/17/2024 Advance Directives For more information, please contact: [phone] * No CPR- Do NOT Intubate (Latest Code Status on File) Date Activated Date Inactivated Comments 02/22/2024 11:35 PM 02/29/2024 2:15 PM NO basic or advanced life-sustaining interventions are performed Question Answer Comments Code status determined by: Discussion with jocelyne singh/ legal decision maker Care Teams Baffle Mounter Relationship Specialty Start Date End Date Zena Yuan MD [address] [place] [address] PCP - General Family Medicine 01/11/24
--- OUTSIDE RECORDS SUMMARY | 2024-06-27 12:28 | XMS_ITS | Clinical Summary ---
Author Organization [facility] Address [place], [place] [address] Care Team Providers Care Manager Ob Name Role Phone [facility] Unavailable [phone] Zena Yuan MD Primary Care Provider Allergies [...] Constipation. 03/06/2024 Active allopurinoL (ZYLOPRIM) 100 mg tabletIndications :Acute gout of left hand, unspecified cause Take 1 Tablet (100 mg) by mouth once daily. 90 Tablet 3 06/07/2024 Active allopurinoL (ZYLOPRIM) 100 mg tabletIndications :Acute gout of left hand, unspecified cause TAKE 1 TABLET (100 MG) BY MOUTH 3 TIMES DAILY 90 Tablet 03/25/2024 06/07/20 24 Discontinue d(Reorder (E-cancel not sent)) predniSONE (DELTASONE) 20 mg tabletIndications :Other secondary acute gout of right wrist Take 2 Tablets (40 mg) by mouth once daily with a meal for 5 days. 10 Tablet 06/07/2024 06/12/20 24 Active Problems Problem Noted Date Diagnosed Date [...] lumbar or lumbosacral interverte bral disc 08/07/2006 Overview (08/07/2006): L1-2 Backache, unspecified 04/12/2006 Other and unspecified hyperlipidemia 04/12/2006 DM w/o complication type II- diet controlled Conduction disorder of the heart 09/28/2003 Migraine 08/25/2003 Stress incontinence 10/16/2000 Unspecified essential hypertension Adrenal adenoma Overview (03/18/2009): left, 11/24. 19mm. follow up at [place], 6 months Diverticulosis Resolved Problems Problem Noted Date Diagnosed Date Resolved Date Severe obesity (BMI 35.0-39. 9) with comorbidity 11/22/2016 01/01/2024 Post-operative pain 07/23/2013 05/23/20 19 Painful Hardware 03/27/2013 04/05/2013 Other secondary hypertension, benign 04/12/2006 02/06/2008 hyperglycemia 04/12/2006 02/06/2008 Other complications due to u nspecified device, implant, and graft 03/01/2006 03/22/2013 Overview (03/01/2006): Painful hardware L2-3 Encounters Date Type Department Care Team Description 06/07/2024 11:45 AM CDT [facility] [address] [facility] [place] [address] Zena Yuan MD Hand Pain/problem (Awaken by pain late Mon night early morning pain of right hand. Swollen, warm and red. Has not been taking allopurnoil, started taking it yesterday and seems to be better since) 06/07/2024 Travel 06/06/2024 Telephone [facility] [address] [place] [address] Zena Yuan MD Appointment Request (request) 06/06/2024 Nurse Triage [facility] [address] [facility] [address] Zena Yuan MD Hand Pain/problem 06/06/2024 Telephone [facility] [address] [facility] [address] Zena Yuan MD Error-please disregard 05/24/2024 Telephone [facility] [address] [facility] [address] Zena Yuan MD DENTAL APPOINTMENT (NEED PREMEDICATION CALLED IN) 05/16/2024 Orders Only [facility] Scanner 1 scan: (1-Ord) [facility], [facility] SKULL TO MID THIGH, 05/16/2024 04/23/2024 Orders Only [facility] Scanner 1 scan: (1-Ord) [facility], [facility]OUS [facility], 04/23/2024 from Last 3 Months Immunizations Name Administration [...] Sign Reading Time Taken Comments Blood Pressure 154/75 06/07/2024 12:04 PM CDT Pulse 73 06/07/2024 12:04 PM CDT Temperature 36.8 ??C (98.2 ??F) 03/04/2024 1:37 PM CD T Respiratory Rate 16 06/01/2019 7:50 AM CDT Oxygen Saturation 99% 06/07/2024 12:04 PM CDT Inhaled Oxygen Concentration - - Weight 77.1 kg (170 lb) 06/07/2024 12:04 PM CDT Height 163.8 cm (5' 4.5) 01/18/2024 2:58 PM CDT Body Mass Index 28.73 01/18/2024 2:58 PM CDT Plan of Treatment Upcoming Encounters Date Type Department Care Team (Late st Contact Info) Description 06/27/2024 1:00 PM CDT Ancillary Procedure [facility] [address] [place] [address] Health Maintenance Due Date Last Done Comments RSV vaccine for adults or (1 - 1-dose 75+ series) 2014 Tetanus booster 06/10/2023 06/10/2013, 05/20, 01/06/2006, Additional history exists Medicare Wellness for age 65+ 04/05/2024, 03/30/2022, 02/26/2021, Additional history exists Depression screening for age 12+ 04/06/2024 04/06/2023, 04/05/2023, 03/30/2022, Additional history exists COVID-19 vaccine series ( season) 2024 08/08/2023, 06/25/2022, 02/04/2022, Additional history exists Influenza for age 65+ [...] 07/04/2014, 07/20/2007 Medical Devices Implanted Type Area Engineering Production Liaison Device Identifier Shelf Expiration Date Model / Serial / Lot Beto Spinal Hex End 20in Titnm Cd - [id number] Implanted:Qty: 1 on 04/27/2010 at [facility] Spine Implants N/A: Spine SOFAMOR DANEK [id number]# / / Xstop Size 14 Mm Implanted:Qty: 1 on 04/12/2006 at [facility] Spine 200 141 / / [id number] Description:XSTOP SIZE 14MM [id number] Canclls Crushed 30cc [[id number]] Implanted:Qty: 1 on 08/09/2006 at [facility] Explanted:at [facility] (Quantity not on file) Spine Allosource 05/06/2011 27 [id number]# / [id number] / Kit Infuse Lg [id number] - [id number] Implanted:Qty: 1 on 08/09/2006 at [facility] Spine SOFAMOR DANEK [id number]# / / [id number] I Hook Narrow Blade Lg Std - [id number] Implanted:Qty: 4 on 04/27/2010 at [facility] N/A: Spine SOFAMOR DANEK [id number]# / / Cnnctr Ti 5.5 16mm Crosslink - [id number] Implanted:Qty: 1 on 04/27/2010 at [facility] N/A: Spine SOFAMOR DANEK [id number]# / / Cnnctr Ti 5.5 22mm Crosslink - [id number] Implanted:Qty: 1 on 04/27/2010 at [facility] N/A: Spine SOFAMOR DANEK [id number]# / / Screw Set Break-Off Hex Titnm - [id number] Implanted:Qty: 4 on 04/27/2010 at [facility] N/A: Spine SOFAMOR DANEK 2009450# / / Kit Infuse Lg [id number] - [id number] Implanted:Qty: 1 on 04/27/2010 at [facility] Spine SOFAMOR DANEK [id number]# / / [id number] A Screw 535x50 Standard Implanted:Qty: 1 on 04/27/2010 at [facility] Spine 835 [address] / / Description:SCREW 535X50 STA NDARD Screw 4.5x50 Standard Implanted:Qty: 1 on 04/27/2010 at [facility] Spine 835 [address] / / Description:SCREW 4.5X50 STA NDARD Screw 4.5x45 Standard Implanted:Qty: 1 on 04/27/2010 at [facility] Spine 835 [address] / / Description:SCREW 4.5X45 STA NDARD [id number] e Canclls Crushed 60cc [[id number]] Implanted:Qty: 1 on 04/27/2010 at [facility] Explanted:at [facility] (Quantity not on file) Spine Musculoskeletal Transplant 11/19/2012 793861# / [id number] / [id number] e Canclls Crushed 60cc [[id number]] Implanted:Qty: 1 on 04/27/2010 at [facility] Explanted:at [facility] (Quantity not on file) Spine Musculoskeletal Transplant 11/19/2012 511639# / [id number] / Set Screw 3dx - [id number] Implanted:Qty: 7 on 04/27/2010 at [facility] N/A: Spine MEDTRONIC PS MEDICAL 2595395# / / Cnnctr Ts 3dx Sm - [id number] Implanted:Qty: 5 on 04/27/2010 at [facility] N/A: Spine Medtronic [id number]# / / Cnnctr Tsrh 3dx Md - [id number] Implanted:Qty: 1 on 04/27/2010 at [facility] N/A: Spine Medtronic [id number]# / / Screw Thin Crest 5.5x45mm - [id number] Implanted:Qty: 2 on 04/27/2010 at [facility] N/A: Spine SOFAMOR DANEK [id number]# / / [id number] Canc 90cc Crushed Freeze Dried [[id number]][[id number]] Implanted:Qty: 1 on 07/16/2013 at [facility] Spine Musculoskeletal Transplant 12/18/2015 [id number]# / [id number] / [id number] 0graftonm Implanted:Qty: 1 on 07/16/2013 at [facility] Spine SPINAL GRAFT 06/02/2016 4 [id number] / [id number] / Description:DBM [id number] GRAFT ON M [id number] Matrix 1x5cm Magnifuse Pcdbm [[id number]] Implanted:Qty: 1 on 07/16/2013 at [facility] Explanted:at [facility] (Quantity not on file) Spine Medtronic Spine/Ortho 05/29/2015 [id number]# / [id number] / Screw Lock 5.5mm Solera Break Off - [id number] Implanted:Qty: 6 on 07/16/2013 by Simón Hodge MD at [facility] N/A: Spine Medtronic Spine/Ortho 2616945# / / Screw Polyaxial 5.5x50 Co Cr Solera - [id number] Implanted:Qty: 2 on 07/16/2013 by Simón Hodge MD at [facility] N/A: Spine Medtronic Spine/Ortho [id number] 50# / / Screw Polyaxial 5.5x55 Co Cr Solera - [id number] Implanted:Qty: 1 on 07/16/2013 by Simón Hodge MD at [facility] N/A: Spine Medtronic Spine/Ortho [id number] 55# / / Screw Polyaxial 6.5x50 Co Cr Solera - [id number] Implanted:Qty: 1 on 07/16/2013 by Simón Hodge MD at [facility] N/A: Spine Medtronic Spine/Ortho [id number] 50# / / Screw Polyaxial 7.5x50 Co Cr Solera - [id number] Implanted:Qty: 1 on 07/16/2013 by Simón Hodge MD at [facility] N/A: Spine Medtronic Spine/Ortho [id number] 50# / / Screw Polyaxial 7.5x55 Co Cr Solera - [id number] Implanted:Qty: 1 on 07/16/2013 by Simón Hodge MD at [facility] N/A: Spine Medtronic Spine/Ortho [id number] 55# / / Beto 5.8r872yi Stra Titnm Alloy Solera - [id number] Implanted:Qty: 2 on 07/16/2013 by Simón Hodge MD at [facility] N/A: Spine Medtronic Spine/Ortho [id number] 0# / / Lauro Stephens Md Std - [id number] Implanted:Qty: 2 on 07/16/2013 by Simón Hodge MD at [facility] N/A: Spine Medtronic Spine/Ortho [id number]# / / Lauro Stephens Md Rmpd Thorac - [id number] Implanted:Qty: 8 on 07/16/2013 by Simón Hodge MD at [facility] N/A: Spine Medtronic Spine/Ortho [id number]# / / Screw Set Break-Off Hex Titnm - [id number] Implanted:Qty: 10 on 07/16/2013 by Simón Hodge MD at [facility] N/A: Spine Medtronic Spine/Ortho [id number]# / / Cnnctr Ti 5.5 16mm Xlink - [id number] Implanted:Qty: 1 on 07/16/2013 by Simón Hodge MD at [facility] N/A: Spine Medtronic Spine/Ortho 6402710# / / Cnnctr Ti 5.5 28mm Xlink - [id number] Implanted:Qty: 1 on 07/16/2013 by Simón Hodge MD at [facility] N/A: Spine Medtronic Spine/Ortho 9062461# / / [id number] Matrix 1cc Jenny Plus Paste Dbm Implanted:Qty: 1 on 05/30/2019 by Josh Casillas MD at [facility] Explanted:at [facility] (Quantity not on file) N/A: Spine Medtronic Spine/Ortho 11/21/2020 [id number]# / [id number] / [id number] 4-10mm 15cc Medtronic Canclls Chips Freeze Dried Implanted:Qty: 1 on 05/30/2019 by Josh Casillas MD at [facility] Explanted:at [facility] (Quantity not on file) N/A: Spine Medtronic Spine/Ortho 09/16/2023 [id number]# / [id number] / Cage 5mm X 16mm X 14mm Implanted:Qty: 1 on 05/30/2019 by Josh Casillas MD at [facility] N/A: Spine [id number] / / 85HK Screw Cerv Ant 4x13mm Atlantistranslational Fa Slf Drill - [id number] Implanted:Qty: 2 on 05/30/2019 by Josh Casillas MD at [facility] N/A: Spine Medtronic Spine/Ortho [id number]# / / Screw Cerv Ant 4x13mm Atlantistranslational Va Slf Drill - [id number] Implanted:Qty: 2 on 05/30/2019 by Josh Casillas MD at [facility] N/A: Spine Medtronic Spine/Ortho [id number]# / / Plate Cerv 1lvl 19mmvision Elite Ant - [id number] Implanted:Qty: 1 on 05/30/2019 by Josh Casillas MD at [facility] N/A: Spine Medtronic Spine/Ortho [id number]# / / Procedures Procedure Name Priority Date/Time Associated Diagnosis Comments SCAN-PET SCAN 05/16/2024 12:00 AM CDT SCAN-ULTRASOUND REPORT 04/23/2024 12:00 AM CDT XR DXA BONE DENSITY 1 SITE AXIAL AND 1 SITE PERIPHERAL Routine 03/03/2021 2:36 PM CDT Low bone density for age from Last 3 Months or Most Recently Relevant to Health Maintenance Results * SCAN-PET SCAN (05/16/2024 12:00 AM CDT) Anatomical Region Laterality Modality Other Scanner OTHER * SCAN-ULTRASOUND REPORT (04/23/2024 12:00 AM CDT) Anatomical Region Laterality Modality [...] recommended in 3-5 years. Tashia Maldonado PA-C [facility] 03/09/2021 Narrative 03/09/2021 1:55 PM CDT XR DXA Bone Mineral Density (BMD) EXAM LOCATION: [facility] [address] [facility] [address] PATIENT NAME: Kendal Franco DATE OF : [...] two scanners are made by the same transverse abdominal muscle surgeon. 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 [facility] 01/28/11 Dr. Gilbert Knox 01/28/11
--- OUTSIDE RECORDS SUMMARY | 2024-06-27 12:28 | XMS_ITS | Encounter Summary ---
Author Organization [facility] Address [address] [place] [address] Care Team Providers Care Fourdrinier Machine Operator Name Role Phone Zena Yuan MD Primary Care Provider Encounter Details Date Type Department Care Team (Late st Contact Info) Description 03/29/2024 Telephone [facility] Interventional Radiology [address] [facility] [place] [address] Juanito Hamm, RN Social [...] procedure in the Interventional Radiology Department at [facility]. Date: 04/04/24 Procedure: Chest Port Placement Address: [address] [address] Check into the Interventional Radiology Department at: [...] please call the Interventional Radiology team at [phone]. Thank you! Dario Warner Interventional Radiology Intake Nurse Coordinator [phone] documented in this encounter Plan of Treatment [...] documented as of this encounter Care Teams Fourdrinier Machine Operator Relationship Specialty Start Date End Date Zena Yuan MD [address] [place] [address] PCP - General Family Medicine 01/11/24 documented as of this encounter
--- OUTSIDE RECORDS SUMMARY | 2024-06-27 12:28 | XMS_ITS | Encounter Summary ---
Author Organization [facility] Address [address] [place] [address] Care Team Providers Care Hotel Or Motel Cleaning Supervisor Name Role Phone Zena Yuan MD Primary Care Provider [phone] Reason for Referral * Therapeutic Imaging/IR (Priority: 1-2 Weeks) - Closed Specialty Diagnoses / Procedures Referred By Contac t Referred To Contact Radiology. 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 (H) Procedures IR Chest Port Placement > 5 Yrs of Age IR Referral Fortunato Velarde MD [facility] [address] [facility] [address] [place] [address] Interventional Rad [address] [place] [address] Referral ID Status Reason Start Date Expiration Date Visits Re quested Visits Authorized [id number] Closed 03/27/2024 03/27/2025 1 1 Encounter Details Date Type Department Care Team (Late st Contact Info) Description 04/04/2024 7:42 AM CDT - 04/04/2024 10:51 AM CDT Hospital Encounter [facility] Imaging [address] [place] [address] Juliana Sher DO [facility] [address] [place] [address] Uche Douglas MD [facility] [address] [place] [address] Follicular lymphoma grade II of lymph nodes [...] Port Put In: Port Placement Discharge Instructions (Sierra Leonean) documented in this encounter Medications at Time [...] procedural details. Provider name: Uche Douglas M.D. Hospitality Aide(s):None documented in this encounter Miscellaneous Notes * [...] DOUGLAS MD Narrative 04/04/2024 10:14 AM CDT [facility] EXAM: IMPLANTABLE RIGHT INTERNAL JUGULAR CHEST [...] observer. The physician spent 50 minutes of syuk-fo-orel moderate sedation time with the patient. ADDITIONAL [...] Procedure Note Uche Douglas MD - 04/04/2024 [facility] EXAM: IMPLANTABLE RIGHT INTERNAL JUGULAR CHEST [...] observer. The physician spent 50 minutes of apil-ph-ndpb moderate sedation time with the patient. ADDITIONAL [...] CDT 04/04/2024 8:03 AM CDT [facility] MANAGEMENT TRAINEE MARKETING MANAGER TRANSMISSION LAB - BLOOD ORDERABLES LABORATORY [facility] Acute Care Lab [address] [facility] (1st floor, no room number) [place] [address], [facility] documented in this encounter Visit Diagnoses [...] documented as of this encounter Care Teams Hotel Or Motel Cleaning Supervisor Relationship Specialty Start Date End Date Zena Yuan MD [address] [address] PCP - General Family Medicine 01/11/24 documented as of this encounter
--- OUTSIDE RECORDS SUMMARY | 2024-06-27 12:28 | XMS_ITS | Encounter Summary ---
Author Organization [place] Address [address] [place] [address] Care Team Providers Care Smart Energy Specialist Name Role Phone Zena Yuan MD Primary Care Provider Encounter Details Date Type Department Care Team (Late st Contact Info) Description 01/11/2024 Telephone [facility] Imaging [address] [place] [address] Keila Liu RN Social History Tobacco Use [...] on filedocumented in this encounter Care Teams Smart Energy Specialist Relationship Specialty Start Date End Date [place] [address] [address] PCP - General Family Medicine 01/11/24 documented as of this encounter
== END 2024-06-27 12:26 | disposition home or self-care (01) ==
LOC: RAD 12:26
PROVIDERS: PCP Family Medicine; Visit Provider Internal Medicine
DX: C82.18 Follicular lymphoma grade II, lymph nodes of multiple sites (principal); I35.1 Nonrheumatic aortic (valve) insufficiency; I34.0 Nonrheumatic mitral (valve) insufficiency; I51.7 Cardiomegaly; R06.09 Other forms of dyspnea; E11.69 Type 2 diabetes mellitus with other specified complication
CPT/HCPCS: 93306